=== PATIENT | female | born 1960 | race Caucasian/White ===

== ENCOUNTER 2020-09-24 07:29 | Outpatient (REF) | payer MEDICARE, MEDICAID, SELFPAY ==
--- NOTE | ~2020-09-24 | FL_ITS ---
EXAMINATION: XR GI SERIES CLINICAL INFORMATION: Dysphagia COMPARISON: None TECHNIQUE: Upper GI was performed using thin and thick barium and effervescent granules. FINDINGS: There are postoperative changes from gastric sleeve procedure. There is an esophageal hernia. There is significant gastroesophageal reflux. There is mucosal irregularity of the distal esophagus questionable for esophagitis. There is question of fold thickening or filling defect in the hernia. The stomach and duodenum are otherwise normal. FLUOROSCOPY TIME: 2.1 minutes DOSE AREA PRODUCT: 38 Vargas per centimeter squared. 42 saved fluoroscopic images. FL/FL upper GI series IMPRESSION: Postoperative change following gastric sleeve procedure. Fixed hiatal hernia and question of fold thickening or filling defect in the hernia. Significant gastroesophageal reflux and mucosal irregularity of the distal esophagus questionable for esophagitis. Endoscopic correlation recommended.
== END 2020-09-24 07:30 | disposition home or self-care (01) ==
LOC: HO.XRAY 07:29
PROVIDERS: PCP Internal Medicine Geriatric Medicine; Visit Provider Family Medicine
DX: R13.10 Dysphagia, unspecified (principal)
CPT/HCPCS: 74240

== ENCOUNTER 2020-09-26 16:45 | Emergency (ER) | payer MEDICARE, MEDICAID, SELFPAY ==
--- NOTE | ~2020-09-26 | CT_ITS ---
EXAMINATION: CT ABDOMEN AND PELVIS WITHOUT CONTRAST CLINICAL INFORMATION: Abdominal pain. History of gastric sleeve, small bowel obstruction. Hernia repair. COMPARISON: None TECHNIQUE: Multidetector volumetric imaging was performed from the superior aspect of the liver through the pubic symphysis. Sagittal and coronal reformatted images were obtained on the technologist's workstation. This CT examination was performed using dose optimization techniques as appropriate, variously including the following: *Automated exposure control *Adjustment of mA and/or kV according to patient size (this includes techniques or standardized protocols for targeted exams where dose is matched to indication/reason for exam; i.e. extremities or head) *Use of iterative reconstruction technique DLP: 1120 mGy-cm FINDINGS: LUNG BASES: The visualized lung bases are unremarkable. LIVER, GALLBLADDER, AND BILIARY TREE: The liver is normal in size, shape, and attenuation. No focal hepatic lesion or biliary ductal dilatation is present. The gallbladder is unremarkable with no evidence of radiopaque gallstones, gallbladder wall thickening, or obvious pericholecystic inflammatory changes. PANCREAS: Unremarkable. SPLEEN: Unremarkable. ADRENAL GLANDS: Unremarkable. KIDNEYS AND URETERS: There is a nonobstructive 2 mm stone in the upper pole of the right kidney. There is a 1 mm stone in mid mid pole the left kidney. There is no hydronephrosis. No ureteral calculus. 1.1 cm angiomyolipoma lower pole cortex of the right kidney. There is an exophytic cyst at the lower pole the right kidney measuring 3.3 cm. Density measurement -21 Hounsfield units. BLADDER: Unremarkable. GASTROINTESTINAL TRACT: There are numerous diverticula of the sigmoid colon. There are a few diverticula in the descending colon. There is subtle edema in the pericolonic fat around the sigmoid colon concerning for a mild diverticulitis. There is no perforation or abscess. There is no bowel obstruction. There is a moderate volume of stool in the colon. The appendix is nonvisualized . The small bowel loops are unremarkable. Status post gastric surgery. There is no hiatal hernia. ABDOMINAL WALL: Surgical clips at the anterior mid lower abdominal wall. No ventral wall hernia. Small right inguinal hernia. LYMPH NODES: Normal. VASCULAR: Unremarkable. PELVIC VISCERA: Uterus is anteverted. Small coarse calcification the left adnexa. No pelvic mass OSSEOUS STRUCTURES: Multilevel degenerative spondylosis spine. CT/CT abdomen pelvis wo con IMPRESSION: 1. Diverticulosis of sigmoid colon with subtle pericolonic edema suggestive of a mild diverticulitis. No perforation, abscess or obstruction. 2. Nonobstructive small stone right kidney. No hydronephrosis. 3. Status post gastric surgery.
[2020-09-26 16:53] VITALS: BP 126/77; PULSE 82; RESP 18; TEMP 37.3; O2SAT 96; BMI 38.5
--- NOTE | 2020-09-26 17:55 | ED_ITS ---
HPI - Abdominal Pain General Chief Complaint: Abdominal Pain Stated Complaint: ABD PAIN NAUSEA Time Seen by Provider: 09/26/20 17:41 Source: patient Mode of arrival: ambulatory Limitations: no limitations History of Present Illness HPI narrative: She comes emergency room complaining diffuse abdominal pain. Patient states the pain started couple of days ago. Patient has history of gastric sleeve procedure approximately 7 years ago and history of multiple hernia repair surgeries. Patient states approximately a month ago, she was told that she had blood in the stool, had a GI series done on 09/24/2020 which showed a fixed hiatal hernia and question of full thickening or filling defect in the hernia. Also significant gastroesophageal reflux and mucosal irregularity of the distal esophagus questionable for esophagitis. Patient states that she has been complaining of diarrhea for 2 and half months. Since patient got her 1st shot of COVID back in June 2020, patient started having diarrhea and it has not resolved. Patient states that yesterday the diarrhea got much worse, up to 7 times during the day and hourly at night. Patient tried taking [id number] remedies with no affect. Also, patient states that 3 weeks ago she went to [place], had 2 dental abscesses, she was started on clindamycin and Augmentin, finished a course of antibiotics, states that the antibiotics made the diarrhea worse. Patient complaining of nausea, no vomiting. MD elicited complaint: abdominal pain and other (Diarrhea) Related Data Previous Rx's Medication Instructions Recorded levofloxacin 500 mg PO DAILY #10 tab 09/26/20 metronidazole 500 mg PO BID #20 tab 09/26/20 tramadol 50 mg PO TID PRN #10 tab 09/26/20 Allergies Allergy/AdvReac Type Severity Reaction Status Date / Time pravastatin Allergy Unknown Verified 06/24/17 00:00 Sulfa (Sulfonamide Allergy Unknown Verified 06/24/17 00:00 Antibiotics) Review of Systems Review of Systems Constitutional : No Weight loss, No Fever, No Chills, No Night Sweats, No Fatigue, No Malaise ENT/Mouth : No Hearing loss, No Ear Pain, No Nasal Congestion, No Sinus Pain, No Hoarseness, No sore throat, No Rhinorrhea, No Swallowing Difficulty Eyes: No Eye Pain, No Swelling, No Redness, No Foreign Body, No Discharge, No Vision Changes Cardiovascular : No Chest Pain, No SOB, No Dyspnea on Exertion, No Orthopnea, No Edema, No Palpitations Respiratory : No Cough, No Sputum, No Wheezing, No Smoke Exposure, No Dyspnea Gastrointestinal : Complaining of Nausea, No Vomiting complaining of copious diarrhea for 2 and half months, No Constipation, complaining of diffuse abdominal pain, No Hematochezia, No Melena Genitourinary : no irregular bleeding, No Dysuria, No Urinary Frequency, No Hematuria, No Urinary Incontinence, No Urgency, No Flank Pain, No Urinary Flow Changes, No Hesitancy Musculoskeletal : No joint pain, No Myalgias, No Joint Swelling Skin : No Skin Lesions, No rash Neuro : No Weakness, No Numbness, No Paresthesias, No Loss of Consciousness, No Dizziness, No Headache Psych : No Anxiety/Panic, No Depression, No SI/HI/AH/VH, No Social Issues, Heme/Lymph: No Bruising, No Bleeding,No Lymphadenopathy Endocrine : No Polyuria, No Polydipsia, No Temperature Intolerance Physical Exam Vital Signs: Vital Signs: Last Vital Signs Temp 99.1 F 09/26/20 16:53 Pulse 82 09/26/20 16:53 Resp 18 09/26/20 16:53 BP 126/77 09/26/20 16:53 Pulse Ox 96 09/26/20 16:53 Body Mass Index 38.5 Appearance: Alert. Oriented X3. No acute distress. Well-appearing Eyes: Pupils equal, round and reactive to light. ENT: Pharynx normal. Neck: Normal inspection. Neck supple. No lymph nodes noted. No crepitus CVS: Normal heart rate and rhythm. Pulses normal. Normal S1 and S2 Respiratory: No respiratory distress. Breath sounds normal. No Wheezing. No rales Abdomen: Soft , mild diffuse tenderness, No rigidity. No distention. Skin: Skin warm and dry. Normal skin color. Normal skin turgor. Extremities: No lower extremity edema. No lower extremity edema. No Lacerations. No Rash Neuro: Oriented X 3. No motor deficit. No sensory deficit. Moving all extermities. No slurred speech. Course Course Course Narrative: I discussed the labs and imaging with the patient, patient likely has diverticulitis. Patient states that the abdominal pain is well controlled now. I discussed with the patient that she could either be admitted for pain control and antibiotics versus going home, depending how she feels. Patient did not provide a urine sample. Patient states that she feels well enough to go home. Patient received a 1st dose of levofloxacin and metronidazole in the emergency room. Patient was instructed to call her edi coordinator, and discussed with him that she was here in the emergency room and is now taking antibiotics for diverticulitis. At this time, patient has not had any bowel movements in the ED, no abdominal pain, unlikely that patient has C diff. MDM - Abdominal Pain Lab Data Result diagrams: 09/26/20 18:43 09/26/20 18:43 Labs: Lab Results 09/26/20 09/26/20 09/26/20 Range/Units 18:43 18:43 18:47 WBC 14.9 H (4.8-10.8) X10*3/uL RBC 4.07 L (4.20-5.50) X10*6/uL Hgb 11.9 L (12.0-16.0) g/dl Hct 35.7 L (37-47) % MCV 87.7 (80-98) fL MCH 29.2 (27.0-33.0) pg MCHC 33.3 (31.0-35.0) g/dl RDW 13.3 (11.0-16.0) % Plt Count 247 (160-400) X10*3/uL MPV 12.1 (9.4-12.3) fL Immature Gran % (Auto) 0.8 H (0.0-0.4) % Neut % (Auto) 73.5 H (45-73) % Lymph % (Auto) 18.0 L (20-40) % [place] % (Auto) 7.4 (2-11) % Eos % (Auto) 0.1 (0-4) % Baso % (Auto) 0.2 (0-2) % Lymph # (Auto) 2.7 (1.2-4.9) X10*3/uL [place] # (Auto) 1.1 (0.1-1.2) X10*3/uL Eos # (Auto) 0.0 (0.0-0.4) X10*3/uL Baso # (Auto) 0.0 (0.0-0.2) X10*3/uL Abs Immat Gran (auto) 0.12 H (0.00-0.03) X10*3/uL Absolute Neuts (auto) 11.0 H (2.0-8.3) X10*3/uL Absolute Nucleated RBC 0.000 (0.0-0.012) X10*3/uL Nucleated RBC % (auto) 0.0 (0.0-0.2) /100WBC Sodium 137 (135-145) mmol/L Potassium 3.8 (3.3-5.1) mmol/L Chloride 107 (96-108) mmol/L Carbon Dioxide 22 (22-29) mmol/L Anion Gap 12 (12-20) BUN 7 L (9-16) mg/dL Creatinine 0.67 (0.5-1.4) mg/dL Estim Creat Clear Calc 116.5 Estimated GFR > 60 Random Glucose 97 (60-115) mg/dL Calcium 8.1 L (8.4-10.2) mg/dL Total Bilirubin 0.6 (0.0-1.0) mg/dL Direct Bilirubin 0.2 (0.0-0.5) mg/dL AST 14 (5-31) U/L ALT 16 (0-31) U/L Alkaline Phosphatase 56 (39-117) U/L Total Protein 6.0 L (6.5-8.0) g/dL Albumin 3.7 (3.5-5.0) g/dL Lipase 5 L (8-78) U/L Stool Occult Blood NEGATIVE (NEGATIVE) Imaging Data CT scan - abdomen: Radiologist's impression: FINDINGS: LUNG BASES: The visualized lung bases are unremarkable. LIVER, GALLBLADDER, AND BILIARY TREE: The liver is normal in size, shape, and attenuation. No focal hepatic lesion or biliary ductal dilatation is present. The gallbladder is unremarkable with no evidence of radiopaque gallstones, gallbladder wall thickening, or obvious pericholecystic inflammatory changes. PANCREAS: Unremarkable. SPLEEN: Unremarkable. ADRENAL GLANDS: Unremarkable. KIDNEYS AND URETERS: There is a nonobstructive 2 mm stone in the upper pole of the right kidney. There is a 1 mm stone in mid mid pole the left kidney. There is no hydronephrosis. No ureteral calculus. 1.1 cm angiomyolipoma lower pole cortex of the right kidney. There is an exophytic cyst at the lower pole the right kidney measuring 3.3 cm. Density measurement -21 Hounsfield units. BLADDER: Unremarkable. GASTROINTESTINAL TRACT: There are numerous diverticula of the sigmoid colon. There are a few diverticula in the descending colon. There is subtle edema in the pericolonic fat around the sigmoid colon concerning for a mild diverticulitis. There is no perforation or abscess. There is no bowel obstruction. There is a moderate volume of stool in the colon. The appendix is nonvisualized . The small bowel loops are unremarkable. Status post gastric surgery. There is no hiatal hernia. ABDOMINAL WALL: Surgical clips at the anterior mid lower abdominal wall. No ventral wall hernia. Small right inguinal hernia. LYMPH NODES: Normal. VASCULAR: Unremarkable. PELVIC VISCERA: Uterus is anteverted. Small coarse calcification the left adnexa. No pelvic mass OSSEOUS STRUCTURES: Multilevel degenerative spondylosis spine. CT/CT abdomen pelvis wo con IMPRESSION: 1. Diverticulosis of sigmoid colon with subtle pericolonic edema suggestive of a mild diverticulitis. No perforation, abscess or obstruction. 2. Nonobstructive small stone right kidney. No hydronephrosis. 3. Status post gastric surgery. Discharge Plan Discharge Clinical Impression: Diverticulitis Patient Disposition: Home, Self-Care Instructions: Diverticulitis (ED), Diverticulitis Diet (ED) Additional Instructions: Please follow-up with your primary care physician tomorrow. If you have any worsening or new symptoms, please return to the emergency room or call 911 Prescriptions: New levofloxacin 500 mg tablet 500 mg PO DAILY Qty: 10 RF: 0 metronidazole 500 mg tablet 500 mg PO BID Qty: 20 RF: 0 tramadol 50 mg tablet 50 mg PO TID PRN (Reason: pain) Qty: 10 RF: 0 PMFSH Past Medical History Medical History Asthma Hernia Surgical History Gastric bypass status for obesity H/O thyroidectomy History of appendectomy Social History Social History Advance Directives: No Advance Directives Information Provided: No
[2020-09-26] MEDS: Morphine Sulfate 4 MG/ML CARTRIDGE IVPUSH (18:14)
[2020-09-26] MEDS: 0.9 % Sodium Chloride 1,000 ML 999 ML IVCONT (18:14)
[2020-09-26] MEDS: ondansetron HCL 4 MG/2 ML VIAL IVPUSH (18:15)
[2020-09-26] MEDS: Loperamide HCl 2 MG CAPSULE 4 MG PO (18:15)
[2020-09-26 18:50] LABS: MANUAL DIFF FLAG NO
[2020-09-26 18:54] LABS: OBS Int Ctl Valid YES; OBS1 NEGATIVE (NEGATIVE)
[2020-09-26 19:15] LABS: Alanine Aminotransferase 16 U/L (0-31); Albumin Level 3.7 g/dL (3.5-5.0); Alkaline Phosphatase 56 U/L (39-117); Anion Gap 12 (12-20); Aspartate Amino Transferase 14 U/L (5-31); Basophils Percent Auto 0.2 % (0-2); Bilirubin Direct 0.2 mg/dL (0.0-0.5); Bilirubin Total 0.6 mg/dL (0.0-1.0); Blood Urea Nitrogen 7 mg/dL (9-16); Calcium 8.1 mg/dL (8.4-10.2); Carbon Dioxide 22 mmol/L (22-29); Chloride 107 mmol/L (96-108); Creatinine Clr Calc Pharmacy 116.5; Eosinophils Percent Auto 0.1 % (0-4); Estimated Glomerular Filt Rate > 60; Glucose Random 97 mg/dL (60-115); Hematocrit 35.7 % (37-47); Hemoglobin 11.9 g/dl (12.0-16.0); Imm Gran Abs Auto 0.12 X10*3/uL (0.00-0.03); Imm Gran Pct Auto 0.8 % (0.0-0.4); Lipase 5 U/L (8-78); Lymphocytes Absolute Auto 2.7 X10*3/uL (1.2-4.9); Mean Corpuscular HGB Conc 33.3 g/dl (31.0-35.0); Mean Corpuscular Hemoglobin 29.2 pg (27.0-33.0); Mean Corpuscular Volume 87.7 fL (80-98); Mean Platelet Volume 12.1 fL (9.4-12.3); Monocytes Absolute Auto 1.1 X10*3/uL (0.1-1.2); Monocytes Percent Auto 7.4 % (2-11); Neutrophils Percent Auto 73.5 % (45-73); Platelet Count 247 X10*3/uL (160-400); Potassium 3.8 mmol/L (3.3-5.1); Red Blood Count 4.07 X10*6/uL (4.20-5.50); Red Cell Distribution Width 13.3 % (11.0-16.0); Sodium 137 mmol/L (135-145); White Blood Count 14.9 X10*3/uL (4.8-10.8)
[2020-09-26 19:55] VITALS: BP 126/68; PULSE 75; RESP 18
[2020-09-26 19:55] LABS: Glucose Urine UA NEG (NEG); Leukocyte Esterase Urine NEG (NEG); Nitrite Urine NEG (NEG); Urine Blood NEG (NEG); Urine Ketones 5 MG/DL (NEG); Urine Protein NEG (NEG-TRACE)
[2020-09-26 19:56] LABS: Appearance Urine CLEAR; Color Urine YELLOW
[2020-09-26] MEDS: levoFLOXacin 500 MG TABLET PO (19:59)
[2020-09-26] MEDS: metroNIDAZOLE 500 MG TABLET PO (19:59)
== END 2020-09-26 20:15 | disposition home or self-care (01) ==
PROVIDERS: Emergency Provider Emergency Medicine; PCP Internal Medicine Geriatric Medicine
DX: K57.32 Diverticulitis of large intestine without perforation or abscess without bleeding (principal); N20.0 Calculus of kidney; Z98.84 Bariatric surgery status; J45.909 Unspecified asthma, uncomplicated
CPT/HCPCS: 36415; 74176; 80048; 80076; 81003; 82272; 83690; 85025; 96361; 96374; 96375; 99283; 99284; J2270; J2405

== ENCOUNTER 2020-10-11 17:21 | Inpatient (IN) | payer MEDICARE, MEDICAID, SELFPAY ==
--- NOTE | ~2020-10-11 | CT_ITS ---
EXAMINATION: CT ABDOMEN AND PELVIS WITH CONTRAST CLINICAL INFORMATION: Abdominal pain COMPARISON: CT abdomen pelvis 09/26/2020 TECHNIQUE: Multidetector volumetric images were obtained from the superior aspect of the liver through the pubic symphysis following administration 85 mL of Omnipaque 350 intravenous contrast. Sagittal and coronal reformatted images were obtained on the technologist's workstation. Oral contrast: No This CT examination was performed using dose optimization techniques as appropriate, variously including the following: *Automated exposure control *Adjustment of mA and/or kV according to patient size (this includes techniques or standardized protocols for targeted exams where dose is matched to indication/reason for exam; i.e. extremities or head) *Use of iterative reconstruction technique DLP: 1131 mGy-cm FINDINGS: LUNG BASES: The visualized lung bases are unremarkable. LIVER, GALLBLADDER, AND BILIARY TREE: The liver is normal in size, shape, and attenuation. No focal hepatic lesion or biliary ductal dilatation is present. The gallbladder is unremarkable with no evidence of radiopaque gallstones, gallbladder wall thickening, or obvious pericholecystic inflammatory changes. PANCREAS: Unremarkable. SPLEEN: Unremarkable. ADRENAL GLANDS: Unremarkable. KIDNEYS AND URETERS: The left kidney appears normal. On the right, there is a nonobstructing right upper pole calculus measuring 3 mm in size along with a lower pole exophytic 3.5 cm cortical cyst and a 1 cm lower pole benign angiomyolipoma, all unchanged. BLADDER: Unremarkable. GASTROINTESTINAL TRACT: A hiatal hernia is present and unchanged. There has been prior gastric surgery. Colonic diverticula are present but there is no definite convincing evidence of acute diverticulitis. There is some minimal streaky changes adjacent to the colon and at the descending colon sigmoid junction which were present previously The small and large bowel are otherwise unremarkable. The appendix is not seen but there is no evidence of appendicitis. ABDOMINAL WALL: There has been repair of a periumbilical/ventral hernia. There is a small right indirect inguinal hernia present containing only fat. LYMPH NODES: No retroperitoneal lymphadenopathy. VASCULAR: Mild calcific changes present in the infrarenal aorta and iliofemoral vessels without stenosis or aneurysm. PELVIC VISCERA: An anteverted uterus is again seen as is a 2 cm simple left ovarian cyst. OSSEOUS STRUCTURES: Degenerative changes most marked at L4-L5 S1. CT/CT abdomen pelvis w con IMPRESSION: 1. An etiology for the patient's abdominal pain has not been found. 2. No significant interval change when compared to the prior study. 3. Incidental findings include prior gastric surgery, hiatal hernia, nonobstructing right renal calculus, benign right renal angiomyolipoma, colonic diverticulosis without diverticulitis, hernia repair, small right inguinal hernia containing only fat, unchanged left ovarian cyst and degenerative changes in the spine
[2020-10-11 17:58] VITALS: BP 148/95; PULSE 74; RESP 18; TEMP 36.9; O2SAT 100; BMI 37.3
[2020-10-11 20:11] VITALS: BP 146/77; PULSE 68; RESP 16; TEMP 37.2; O2SAT 98
[2020-10-11 20:18] LABS: MANUAL DIFF FLAG NO
--- NOTE | 2020-10-11 20:18 | PC.NURSE ---
Pt found laying in bed with daughter at bedside. Pt CAOx4, reports a history of diverticulitis and a sleeve gastrectomy. Pt also states they are considering Crohns disease but no official diagnosis has been made. Pt reports constant lower abdominal pain x 2 days with diarrhea and poor PO intake. LBM this afternoon, denies obvious blood in stool. Pt also reporting pain/burning with urination, states she is unable to provide urine sample at this time. Pt provided with a urine cup. IV established, labs obtained. VSS, lights dim for comfort. Awaiting primary MD larson. Lights dim for comfort, call de guzman within reach, continue to monitor.
[2020-10-11 20:19] LABS: Basophils Absolute Auto 0.1 X10*3/uL (0.0-0.2); Basophils Percent Auto 0.3 % (0-2); Eosinophils Absolute Auto 0.1 X10*3/uL (0.0-0.4); Eosinophils Percent Auto 0.3 % (0-4); Hematocrit 39.7 % (37-47); Hemoglobin 13.6 g/dl (12.0-16.0); Imm Gran Abs Auto 0.09 X10*3/uL (0.00-0.03); Imm Gran Pct Auto 0.5 % (0.0-0.4); Lymphocytes Absolute Auto 3.3 X10*3/uL (1.2-4.9); Lymphocytes Percent Auto 18.2 % (20-40); Mean Corpuscular HGB Conc 34.3 g/dl (31.0-35.0); Mean Corpuscular Hemoglobin 29.6 pg (27.0-33.0); Mean Corpuscular Volume 86.3 fL (80-98); Mean Platelet Volume 12.2 fL (9.4-12.3); Monocytes Absolute Auto 1.3 X10*3/uL (0.1-1.2); Monocytes Percent Auto 7.2 % (2-11); Neutrophils Absolute Auto 13.5 X10*3/uL (2.0-8.3); Neutrophils Percent Auto 73.5 % (45-73); Platelet Count 266 X10*3/uL (160-400); Red Cell Distribution Width 13.4 % (11.0-16.0); White Blood Count 18.3 X10*3/uL (4.8-10.8)
[2020-10-11 20:59] LABS: Alanine Aminotransferase 15 U/L (0-31); Albumin Level 4.1 g/dL (3.5-5.0); Alkaline Phosphatase 64 U/L (39-117); Anion Gap 18 (12-20); Aspartate Amino Transferase 15 U/L (5-31); Bilirubin Total 0.7 mg/dL (0.0-1.0); Blood Urea Nitrogen 7 mg/dL (9-16); Calcium 9.1 mg/dL (8.4-10.2); Carbon Dioxide 20 mmol/L (22-29); Chloride 105 mmol/L (96-108); Estimated Glomerular Filt Rate > 60; Glucose Random 108 mg/dL (60-115); Lipase 8 U/L (8-78); Potassium 3.6 mmol/L (3.3-5.1); Sodium 139 mmol/L (135-145); Total Protein 6.8 g/dL (6.5-8.0)
--- NOTE | 2020-10-11 21:11 | ED.ABDPAIN ---
HPI - Abdominal Pain General Chief Complaint: Abdominal Pain Stated Complaint: abd pain since july Time Seen by Provider: 10/11/20 21:11 Source: patient Mode of arrival: ambulatory History of Present Illness HPI narrative: 60-year-old female with past medical history of diverticulitis treated 09/26 and completed entire course but has remained with diarrhea that patient states over the past 2 days has increase in frequency to 8-10 times/today she tried Imodium once this morning and this is been associated with nausea, vomiting but denies any fever, chills, urinary pain/burning/frequency. Related Data Home Medications Medication Instructions Recorded Confirmed buspirone 30 mg PO BID 10/11/20 10/11/20 carisoprodol 350 mg PO QID 10/11/20 10/11/20 ezetimibe 10 mg PO DAILY 10/11/20 10/11/20 levothyroxine 125 mcg PO DAILY 10/11/20 10/11/20 omeprazole 40 cap PO BID 10/11/20 10/11/20 venlafaxine 75 mg PO BEDTIME 10/11/20 10/11/20 venlafaxine 150 mg PO BEDTIME 10/11/20 10/11/20 zolpidem 10 mg PO BEDTIME PRN 10/11/20 10/11/20 Previous Rx's Medication Instructions Recorded tramadol 50 mg PO TID PRN #10 tab 09/26/20 Allergies Allergy/AdvReac Type Severity Reaction Status Date / Time pravastatin Allergy Unknown Verified 06/24/17 00:00 Sulfa (Sulfonamide Allergy Unknown Verified 06/24/17 00:00 Antibiotics) Review of Systems Review of Systems Pertinent positives and negatives as stated in HPI 10 point review of systems otherwise negative. Physical Exam Vital Signs: Vital Signs: Last Vital Signs Temp 98.9 F 10/11/20 20:11 Pulse 66 10/11/20 21:41 Resp 16 10/11/20 21:41 BP 114/75 10/11/20 21:41 Pulse Ox 98 10/11/20 20:11 Body Mass Index 37.3 VITAL SIGNS: Reviewed. GENERAL: Well developed, well nourished, in no acute distress. HEAD: Normocephalic/atraumatic EYES: PERRLA, EOMI OROPHARYNX: no oral lesions noted, posterior pharynx clear NECK: Supple, no adenopathy LUNGS: Normal breath sounds. No adventitious sounds or accessory muscle use. SpO2<98> CARDIOVASCULAR: Regular rate and rhythm without noted murmurs ABDOMEN: Soft, mild tenderness no rebound, non-distended with bowel sounds. Course Course Course Narrative: 2132: This is a 60-year-old female with history and clinical presentation consistent with colitis, will rule out C diff and probably a component of dehydration. No evidence to suggest SBO. On review of all investigations patient is suspected to have C diff colitis and will be provided with initial antibiotics here in the ER and then admitted to the hospitalist team for further management. MDM - Abdominal Pain Lab Data Result diagrams: 10/11/20 20:05 10/11/20 20:05 Labs: Lab Results 10/11/20 10/11/20 10/11/20 Range/Units 20:05 20:05 22:06 WBC 18.3 H (4.8-10.8) X10*3/uL RBC 4.60 (4.20-5.50) X10*6/uL Hgb 13.6 (12.0-16.0) g/dl Hct 39.7 (37-47) % MCV 86.3 (80-98) fL MCH 29.6 (27.0-33.0) pg MCHC 34.3 (31.0-35.0) g/dl RDW 13.4 (11.0-16.0) % Plt Count 266 (160-400) X10*3/uL MPV 12.2 (9.4-12.3) fL Immature Gran % (Auto) 0.5 H (0.0-0.4) % Neut % (Auto) 73.5 H (45-73) % Lymph % (Auto) 18.2 L (20-40) % [place] % (Auto) 7.2 (2-11) % Eos % (Auto) 0.3 (0-4) % Baso % (Auto) 0.3 (0-2) % Lymph # (Auto) 3.3 (1.2-4.9) X10*3/uL [place] # (Auto) 1.3 H (0.1-1.2) X10*3/uL Eos # (Auto) 0.1 (0.0-0.4) X10*3/uL Baso # (Auto) 0.1 (0.0-0.2) X10*3/uL Abs Immat Gran (auto) 0.09 H (0.00-0.03) X10*3/uL Absolute Neuts (auto) 13.5 H (2.0-8.3) X10*3/uL Absolute Nucleated RBC 0.000 (0.0-0.012) X10*3/uL Nucleated RBC % (auto) 0.0 (0.0-0.2) /100WBC Sodium 139 (135-145) mmol/L Potassium 3.6 (3.3-5.1) mmol/L Chloride 105 (96-108) mmol/L Carbon Dioxide 20 L (22-29) mmol/L Anion Gap 18 (12-20) BUN 7 L (9-16) mg/dL Creatinine 0.73 (0.5-1.4) mg/dL Estim Creat Clear Calc 105.0 Estimated GFR > 60 Random Glucose 108 (60-115) mg/dL Lactic Acid (0.5-2.0) mmol/L Calcium 9.1 D (8.4-10.2) mg/dL Total Bilirubin 0.7 (0.0-1.0) mg/dL AST 15 (5-31) U/L ALT 15 (0-31) U/L Alkaline Phosphatase 64 (39-117) U/L Total Protein 6.8 (6.5-8.0) g/dL Albumin 4.1 (3.5-5.0) g/dL Lipase 8 (8-78) U/L Stool Occult Blood (NEGATIVE) C. difficile Toxin A&B Positive A (Negative) C. difficile Antigen Positive A (Negative) C. difficile Interpret SEE NOTE COVID-19 (SUNDAR) (Negative) COVID-19 Clin Com 10/11/20 10/11/20 10/11/20 Range/Units 23:42 23:42 23:42 WBC (4.8-10.8) X10*3/uL RBC (4.20-5.50) X10*6/uL Hgb (12.0-16.0) g/dl Hct (37-47) % MCV (80-98) fL MCH (27.0-33.0) pg MCHC (31.0-35.0) g/dl RDW (11.0-16.0) % Plt Count (160-400) X10*3/uL MPV (9.4-12.3) fL Immature Gran % (Auto) (0.0-0.4) % Neut % (Auto) (45-73) % Lymph % (Auto) (20-40) % [place] % (Auto) (2-11) % Eos % (Auto) (0-4) % Baso % (Auto) (0-2) % Lymph # (Auto) (1.2-4.9) X10*3/uL [place] # (Auto) (0.1-1.2) X10*3/uL Eos # (Auto) (0.0-0.4) X10*3/uL Baso # (Auto) (0.0-0.2) X10*3/uL Abs Immat Gran (auto) (0.00-0.03) X10*3/uL Absolute Neuts (auto) (2.0-8.3) X10*3/uL Absolute Nucleated RBC (0.0-0.012) X10*3/uL Nucleated RBC % (auto) (0.0-0.2) /100WBC Sodium (135-145) mmol/L Potassium (3.3-5.1) mmol/L Chloride (96-108) mmol/L Carbon Dioxide (22-29) mmol/L Anion Gap (12-20) BUN (9-16) mg/dL Creatinine (0.5-1.4) mg/dL Estim Creat Clear Calc Estimated GFR Random Glucose (60-115) mg/dL Lactic Acid 0.9 (0.5-2.0) mmol/L Calcium (8.4-10.2) mg/dL Total Bilirubin (0.0-1.0) mg/dL AST (5-31) U/L ALT (0-31) U/L Alkaline Phosphatase (39-117) U/L Total Protein (6.5-8.0) g/dL Albumin (3.5-5.0) g/dL Lipase (8-78) U/L Stool Occult Blood NEGATIVE (NEGATIVE) C. difficile Toxin A&B (Negative) C. difficile Antigen (Negative) C. difficile Interpret COVID-19 (SUNDAR) Negative (Negative) COVID-19 Clin Com See Note Discharge Plan Discharge Clinical Impression: C. difficile colitis Patient Disposition: Admitted As Inpatient [facility] Past Medical History Source: nursing notes reviewed Medical History Asthma Hernia Surgical History Gastric bypass status for obesity H/O thyroidectomy History of appendectomy Social History Social History Advance Directives: No Advance Directives Information Provided: No Patient : No
--- NOTE | 2020-10-11 21:26 | PC.NURSE ---
at bedside for primary eval.
[2020-10-11] MEDS: 0.9 % Sodium Chloride 2,000 ML 999 ML IV (21:38)
[2020-10-11] MEDS: ondansetron HCL 4 MG/2 ML VIAL IVPUSH (21:38)
--- NOTE | 2020-10-11 21:39 | PC.NURSE ---
Medicated per MAR. VSS. Pt aware of plan for UA, OBS and stool sample. Pt provided with specimen cups. Continue to monitor.
[2020-10-11 21:41] VITALS: BP 114/75; PULSE 66; RESP 16
--- NOTE | 2020-10-11 22:21 | PC.NURSE ---
Stool sample obtained and sent. Pt remains unable to provide UA. IVF infusing per MAR.
--- NOTE | 2020-10-11 23:02 | PC.NURSE ---
Off to CT on hospital bed.
[2020-10-11] MEDS: iohexoL 350 MG/ML 100 ML INFUS..BTL 85 ML IV (23:16)
[2020-10-11 23:20] LABS: CDIFF Ag Positive (Negative); CDiff Toxin Positive (Negative)
[2020-10-11 23:23] LABS: CDIFF Internal ctrl Dots and bkg OK (V)
--- NOTE | 2020-10-11 23:46 | PC.NURSE ---
BCXx2, lactic, Covid swab obtained and sent. Lab to add on OBS to stool sample. Med Rec completed at bedside with pt.
[2020-10-11 23:51] LABS: OBS Int Ctl Valid YES; OBS1 NEGATIVE (NEGATIVE)
[2020-10-11] MEDS: vancomycin HCL 125 MG CAPSULE 500 MG PO (23:51)
[2020-10-12] VITALS (7 sets, daily range): BP systolic 95–139; BP diastolic 50–87; PULSE 60–68; RESP 16–20; TEMP 35.9–36.6; O2SAT 94–99
[2020-10-12 00:04] LABS: COVID-19 Test Negative (Negative)
[2020-10-12 00:25] LABS: Lactic Acid 0.9 mmol/L (0.5-2.0)
--- NOTE | 2020-10-12 00:34 | PC.NURSE ---
Hospitalist at bedside.
[2020-10-12 01:44] LABS: Glucose Urine UA NEG (NEG); Leukocyte Esterase Urine NEG (NEG); Nitrite Urine NEG (NEG); Specific Gravity - Urine <= 1.005 (1.005-1.025); Urine Blood NEG (NEG); Urine Ketones 15 MG/DL (NEG); Urine Protein NEG (NEG-TRACE)
[2020-10-12 01:49] LABS: Appearance Urine CLEAR; Color Urine YELLOW
[2020-10-12] MEDS: Venlafaxine HCl ER 150 MG CAP.ER.24H PO ×2 (01:56→21:13)
[2020-10-12] MEDS: Acetaminophen 325 MG TABLET 650 MG PO (01:56)
[2020-10-12] MEDS: Venlafaxine HCl ER 75 MG CAP.ER.24H PO ×2 (01:56→21:13)
[2020-10-12] MEDS: Zolpidem Tartrate 5 MG TABLET PO (01:56)
[2020-10-12] MEDS: Lactated Ringers 1,000 ML 100 ML IVCONT ×3 (01:56→16:36)
[2020-10-12] MEDS: Enoxaparin Sodium 40 MG/0.4 ML SYRINGE SUBCUT (01:57)
--- NOTE | 2020-10-12 02:00 | PC.NURSE ---
Pt medicated per MAR. Awaiting room assignment. Continue to monitor.
--- NOTE | 2020-10-12 05:25 | PM.IMHP ---
History of Present Illness Date of Service: 10/12/20 Chief Complaint: diarrhea This is a 60-year-old female with past medical history of gastric bypass, asthma, thyroid cancer status post thyroidectomy, hypothyroidism, who presents to the hospital with complaints of over 10 episodes of diarrhea for the past 2 days. Patient reports that she started having diarrhea since that she started taking pre on probiotic back in July. Patient reports that she then went to [facility] the in August and had tooth abscess for which she was prescribed antibiotics including clindamycin then she developed abdominal pain about 2 weeks ago, came to the ED here and was diagnosed with diverticulitis and was prescribed Flagyl and levofloxacin with no resolution of her diarrhea. About 1 day ago her diarrhea increase in number where she is now having more than 10 episodes of watery diarrhea associated with abdominal cramping in the lower abdomen. She reports nausea, some chills with no fever, no bloody diarrhea, denies any chest pain, no shortness of breath, no headache or change in vision, no lower extremity edema. On arrival to the ED patient hemodynamically stable with no significant abnormal vitals Labs are significant for WBC count of 18.3, BUN of 7, creatinine of 0.73, labs otherwise unremarkable. C diff showed positive toxin as well as antigen. Abdominal CT shows an etiology for the patient abdominal pain has not been found. No significant interval change when compared to prior study, incidental findings including prior gastric surgery, hiatal hernia, nonobstructing right renal calculus. No evidence of diverticulitis. Past medical history per patient and confirmed with her Review of Systems Review of Systems: Yes all other systems are reviewed and are negative [facility] Medical History (Updated 10/12/20 @ 05:33 by Joy Miller MD) Anxiety and depression Asthma Chronic back pain Hernia Hypothyroidism Insomnia Osteoarthritis Surgical History Gastric bypass status for obesity H/O thyroidectomy History of appendectomy Social History Advance Directives: No Advance Directives Information Provided: No Patient : No Meds Allergies Allergy/AdvReac Type Severity Reaction Status Date / Time pravastatin Allergy Unknown Verified 06/24/17 00:00 Sulfa (Sulfonamide Allergy Unknown Verified 06/24/17 00:00 Antibiotics) Active Medications: Current Medications Generic Name Dose Route Start Last Admin Trade Name Freq PRN Reason Stop Dose Admin Acetaminophen 650 mg 10/12/20 01:28 10/12/20 01:56 Acetaminophen 325 Mg Tablet PO 650 mg Q6H PRN Administration Pain, Mild (Pain Scale 1-3) Buspirone HCl 30 mg 10/12/20 09:00 Buspirone Hcl 10 Mg Tablet PO BID [facility] Carisoprodol 350 mg 10/12/20 09:00 Carisoprodol 350 Mg Tablet PO QID [facility] Ezetimibe 10 mg 10/12/20 09:00 Ezetimibe 10 Mg Tablet PO DAILY [facility] Enoxaparin Sodium 40 mg 10/12/20 02:00 10/12/20 01:57 Enoxaparin Sodium 40 Mg/0.4 Ml Syringe SUBCUT 40 mg Q24H KERWIN Administration Lactated Ringer's 1,000 mls @ 100 mls/hr 10/12/20 01:28 10/12/20 01:56 Lr IVCONT 100 mls/hr .Q10H KERWIN Administration Levothyroxine Sodium 125 mcg 10/12/20 06:30 Levothyroxine Sodium 125 Mcg Tablet PO DAILY@0630 [facility] Omeprazole 1,600 mg 10/12/20 06:30 Omeprazole 40 Mg Capsule.Dr PO BID@0630,1630 [facility] Ondansetron HCl 4 mg 10/12/20 01:28 Ondansetron Hcl 4 Mg/2 Ml Vial IVPUSH Q8H PRN Nausea and Vomiting Sodium Chloride 3 ml 10/12/20 08:00 0.9 % Sodium Chloride Flush 3 M[facility] HCl 50 mg 10/12/20 01:28 Tramadol Hcl 50 Mg Tablet PO TID PRN pain Vancomycin HCl 250 mg 10/12/20 01:28 10/12/20 01:45 Vancomycin Hcl 125 Mg Capsule PO Not Given Q6H [facility] Venlafaxine HCl 75 mg 10/12/20 01:28 10/12/20 01:56 Venlafaxine Hcl Er 75 Mg Cap.Er.24h PO 75 mg BEDTIME KERWIN Administration Venlafaxine HCl 150 mg 10/12/20 01:28 10/12/20 01:56 Venlafaxine Hcl Er 150 Mg Cap.Er.24h PO 150 mg BEDTIME KERWIN Administration Zolpidem Tartrate 5 mg 10/12/20 01:28 10/12/20 01:56 Zolpidem Tartrate 5 Mg Tablet PO 5 mg BEDTIME PRN Administration insomnia Home Medications Medication Instructions Recorded Confirmed Last Taken Type buspirone 30 mg PO BID 10/11/20 10/11/20 10/10/20 21:00 History carisoprodol 350 mg PO QID 10/11/20 10/11/20 10/10/20 21:00 History ezetimibe 10 mg PO DAILY 10/11/20 10/11/20 10/10/20 21:00 History levothyroxine 125 mcg PO DAILY 10/11/20 10/11/20 10/11/20 08:00 History omeprazole 40 cap PO BID 10/11/20 10/11/20 10/10/20 21:00 History venlafaxine 75 mg PO BEDTIME 10/11/20 10/11/20 10/10/20 21:00 History venlafaxine 150 mg PO BEDTIME 10/11/20 10/11/20 10/10/20 21:00 History zolpidem 10 mg PO BEDTIME PRN 10/11/20 10/11/20 10/10/20 21:00 History Physical Exam Vital Signs and Narrative: Vital Signs: Last Vital Signs Temp 98.9 F 10/11/20 20:11 Pulse 62 10/12/20 01:15 Resp 16 10/12/20 01:15 BP 124/67 10/12/20 01:15 Pulse Ox 98 10/11/20 20:11 Body Mass Index 37.3 Const: General: cooperative and no acute distress Orientation/consciousness: patient oriented x3 Eyes: General: appearance normal, both eyes and all related structures Resp: Effort & Inspection: normal respiratory effort and able to speak in complete sentences Auscultation: clear to auscultation bilaterally Cardio: Rate: regular rate Rhythm: regular rhythm GI: Other: Abdomen tender on palpation, no rebound or guarding Palpation (GI): Soft to palpation and Tenderness to palpation present (GI) Skin: General skin exam: no rashes or lesions noted Neuro: General: patient oriented x3 Cognition (Neuro): normal cognition Extrem: General: Yes normal to inspection and Yes no pedal edema Results Labs CBC and Chem 7: 10/11/20 20:05 10/11/20 20:05 Labs: Laboratory Results - last 24 hr 10/11/20 10/11/20 10/11/20 20:05 20:05 22:06 MCV 86.3 MCH 29.6 MCHC 34.3 RDW 13.4 Plt Count 266 MPV 12.2 Immature Gran % (Auto) 0.5 H Neut % (Auto) 73.5 H Lymph % (Auto) 18.2 L [place] % (Auto) 7.2 Eos % (Auto) 0.3 Baso % (Auto) 0.3 Lymph # (Auto) 3.3 [place] # (Auto) 1.3 H Eos # (Auto) 0.1 Baso # (Auto) 0.1 Abs Immat Gran (auto) 0.09 H Absolute Neuts (auto) 13.5 H Absolute Nucleated RBC 0.000 Nucleated RBC % (auto) 0.0 Anion Gap 18 Estim Creat Clear Calc 105.0 Estimated GFR > 60 Random Glucose 108 Lactic Acid Calcium 9.1 D Total Bilirubin 0.7 AST 15 ALT 15 Alkaline Phosphatase 64 Total Protein 6.8 Albumin 4.1 Lipase 8 Urine Color Urine Appearance Urine pH Ur Specific [place] Urine Protein Urine Glucose (UA) Urine Ketones Urine Blood Urine Nitrite Ur Leukocyte Esterase Stool Occult Blood C. difficile Toxin A&B Positive A C. difficile Antigen Positive A C. difficile Interpret SEE NOTE COVID-19 (SUNDAR) COVID-L'Idealist 10/11/20 10/11/20 10/11/20 23:42 23:42 23:42 MCV MCH MCHC RDW Plt Count MPV Immature Gran % (Auto) Neut % (Auto) Lymph % (Auto) [place] % (Auto) Eos % (Auto) Baso % (Auto) Lymph # (Auto) [place] # (Auto) Eos # (Auto) Baso # (Auto) Abs Immat Gran (auto) Absolute Neuts (auto) Absolute Nucleated RBC Nucleated RBC % (auto) Anion Gap Estim Creat Clear Calc Estimated GFR Random Glucose Lactic Acid 0.9 Calcium Total Bilirubin AST ALT Alkaline Phosphatase Total Protein Albumin Lipase Urine Color Urine Appearance Urine pH Ur Specific [place] Urine Protein Urine Glucose (UA) Urine Ketones Urine Blood Urine Nitrite Ur Leukocyte Esterase Stool Occult Blood NEGATIVE C. difficile Toxin A&B C. difficile Antigen C. difficile Interpret COVID-19 (SUNDAR) Negative COVID-19 Clin Com See Note 10/12/20 01:27 MCV MCH MCHC RDW Plt Count MPV Immature Gran % (Auto) Neut % (Auto) Lymph % (Auto) [place] % (Auto) Eos % (Auto) Baso % (Auto) Lymph # (Auto) [place] # (Auto) Eos # (Auto) Baso # (Auto) Abs Immat Gran (auto) Absolute Neuts (auto) Absolute Nucleated RBC Nucleated RBC % (auto) Anion Gap Estim Creat Clear Calc Estimated GFR Random Glucose Lactic Acid Calcium Total Bilirubin AST ALT Alkaline Phosphatase Total Protein Albumin Lipase Urine Color YELLOW Urine Appearance CLEAR Urine pH 6.0 Ur Specific [place] <= 1.005 Urine Protein NEG Urine Glucose (UA) NEG Urine Ketones 15 Urine Blood NEG Urine Nitrite NEG Ur Leukocyte Esterase NEG Stool Occult Blood C. difficile Toxin A&B C. difficile Antigen C. difficile Interpret COVID-19 (SUNDAR) COVID-19 Clin Com Imaging Radiologist's Impressions: Impressions Abdomen/Pelvis CT 10/11/20 22:42 IMPRESSION: 1. An etiology for the patient's abdominal pain has not been found. 2. No significant interval change when compared to the prior study. 3. Incidental findings include prior gastric surgery, hiatal hernia, nonobstructing right renal calculus, benign right renal angiomyolipoma, colonic diverticulosis without diverticulitis, hernia repair, small right inguinal hernia containing only fat, unchanged left ovarian cyst and degenerative changes in the spine Assessment and Plan (1) Diarrhea: Status: Acute (2) C. difficile colitis: Status: Acute 60-year-old female with past medical history of hypothyroidism who presents to the hospital with complaints of more than 10 episodes of diarrhea for the past 2 days. Found to have C diff. # intractable diarrhea - secondary to C diff - no evidence of complication on CT abdomen - at this time will start her on vancomycin p.o. - IV fluids - follow resolution of diarrhea # severe C diff - has abdominal pain, WBC more than 15,000 - C diff antigen as well as toxins positive - most likely du to use of antibiotics in the recent past - will start her on 250 mg of Vancomycin q.i.d. # hypothyroidism - continue levothyroxine # anxiety and depression - continue home medications # insomnia - continue Ambien DVT prophylaxis: Lovenox Quality Stroke Does the patient have a stroke diagnosis?: No VTE Prior VTE?: No VTE Risk Level:: Medical - moderate - high VTE Device Contraindication: Treatment Not Tolerated VTE Drug Contraindication: N/A - Med Ordered
--- NOTE | 2020-10-12 06:38 | PC.NURSE ---
Pharmacy called for 0630 Levothyroxine. Pharmacy to bring medication to ED. Pt sleeping in bed at this time, VSS.
[2020-10-12] MEDS: vancomycin HCL 125 MG CAPSULE 250 MG PO ×3 (07:30→19:29)
[2020-10-12] MEDS: Omeprazole 40 MG CAPSULE.DR PO ×2 (07:33→16:34)
[2020-10-12] MEDS: Levothyroxine Sodium 125 MCG TABLET PO (07:33)
[2020-10-12] MEDS: busPIRone HCl 10 MG TABLET 30 MG PO ×2 (10:44→20:53)
[2020-10-12] MEDS: Ezetimibe 10 MG TABLET PO (10:45)
[2020-10-12] MEDS: carisoprodoL 350 MG TABLET PO ×4 (10:45→20:54)
[2020-10-12] MEDS: 0.9 % Sodium Chloride Flush 3 ML SYRINGE IVFLUSH ×2 (10:45→16:34)
--- NOTE | 2020-10-12 12:35 | P.PNIM_ITS ---
Subjective Subjective Date of Service: 10/12/20 Interval History: 5 episodes watery diarrhea since this AM able to tolerate a little PO, no vomiting no fever abd discomfort- crampy, not severe Physical Exam Vital Signs: Vital Signs: Last Vital Signs Temp 98.9 F 10/11/20 20:11 Pulse 62 10/12/20 07:35 Resp 18 10/12/20 07:35 BP 123/70 10/12/20 07:35 Pulse Ox 98 10/12/20 07:35 Body Mass Index 37.3 Gen: in no acute distress Abd: mild bilateral lower quadrant tenderness Ext: no edema Skin: warm/well-perfused Psych: appropriate affect Objective Data Current Medications Generic Name Dose Route Start Last Admin Trade Name Freq PRN Reason Stop Dose Admin Acetaminophen 650 mg 10/12/20 01:28 10/12/20 01:56 Acetaminophen 325 Mg Tablet PO 650 mg Q6H PRN Administration Pain, Mild (Pain Scale 1-3) Buspirone HCl 30 mg 10/12/20 09:00 10/12/20 10:44 Buspirone Hcl 10 Mg Tablet PO 30 mg BID KERWIN Administration Carisoprodol 350 mg 10/12/20 09:00 10/12/20 10:45 Carisoprodol 350 Mg Tablet PO 350 mg QID KERWIN Administration Ezetimibe 10 mg 10/12/20 09:00 10/12/20 10:45 Ezetimibe 10 Mg Tablet PO 10 mg DAILY KERWIN Administration Enoxaparin Sodium 40 mg 10/12/20 02:00 10/12/20 01:57 Enoxaparin Sodium 40 Mg/0.4 Ml Syringe SUBCUT 40 mg Q24H KERWIN Administration Lactated Ringer's 1,000 mls @ 100 mls/hr 10/12/20 01:28 10/12/20 10:45 Lr IVCONT 100 mls/hr .Q10H KERWIN Administration Levothyroxine Sodium 125 mcg 10/12/20 06:30 10/12/20 07:33 Levothyroxine Sodium 125 Mcg Tablet PO 125 mcg DAILY@0630 KERWIN Administration Omeprazole 40 mg 10/12/20 06:45 10/12/20 07:33 Omeprazole 40 Mg Capsule.Dr PO 40 mg BID@0630,1630 KERWIN Administration Ondansetron HCl 4 mg 10/12/20 01:28 Ondansetron Hcl 4 Mg/2 Ml Vial IVPUSH Q8H PRN Nausea and Vomiting Sodium Chloride 3 ml 10/12/20 08:00 10/12/20 10:45 0.9 % Sodium Chloride Flush 3 Ml Syringe IVFLUSH 3 ml QSHIFT KERWIN Administration Tramadol HCl 50 mg 10/12/20 01:28 Tramadol Hcl 50 Mg Tablet PO TID PRN pain Vancomycin HCl 250 mg 10/12/20 01:28 10/12/20 07:30 Vancomycin Hcl 125 Mg Capsule PO 250 mg Q6H KERWIN Administration Venlafaxine HCl 75 mg 10/12/20 01:28 10/12/20 01:56 Venlafaxine Hcl Er 75 Mg Cap.Er.24h PO 75 mg BEDTIME KERWNI Administration Venlafaxine HCl 150 mg 10/12/20 01:28 10/12/20 01:56 Venlafaxine Hcl Er 150 Mg Cap.Er.24h PO 150 mg BEDTIME KERWIN Administration Zolpidem Tartrate 5 mg 10/12/20 01:28 10/12/20 01:56 Zolpidem Tartrate 5 Mg Tablet PO 5 mg BEDTIME PRN Administration insomnia Labs CBC & Chem 7: 10/11/20 20:05 10/11/20 20:05 Labs: Laboratory Results - last 24 hr 10/11/20 10/11/20 10/11/20 20:05 20:05 22:06 WBC 18.3 H RBC 4.60 Hgb 13.6 Hct 39.7 MCV 86.3 MCH 29.6 MCHC 34.3 RDW 13.4 Plt Count 266 MPV 12.2 Immature Gran % (Auto) 0.5 H Neut % (Auto) 73.5 H Lymph % (Auto) 18.2 L [place] % (Auto) 7.2 Eos % (Auto) 0.3 Baso % (Auto) 0.3 Lymph # (Auto) 3.3 [place] # (Auto) 1.3 H Eos # (Auto) 0.1 Baso # (Auto) 0.1 Abs Immat Gran (auto) 0.09 H Absolute Neuts (auto) 13.5 H Absolute Nucleated RBC 0.000 Nucleated RBC % (auto) 0.0 Sodium 139 Potassium 3.6 Chloride 105 Carbon Dioxide 20 L Anion Gap 18 BUN 7 L Creatinine 0.73 Estim Creat Clear Calc 105.0 Estimated GFR > 60 Random Glucose 108 Lactic Acid Calcium 9.1 D Total Bilirubin 0.7 AST 15 ALT 15 Alkaline Phosphatase 64 Total Protein 6.8 Albumin 4.1 Lipase 8 Urine Color Urine Appearance Urine pH Ur Specific [place] Urine Protein Urine Glucose (UA) Urine Ketones Urine Blood Urine Nitrite Ur Leukocyte Esterase Stool Occult Blood C. difficile Toxin A&B Positive A C. difficile Antigen Positive A C. difficile Interpret SEE NOTE COVID-19 (SUNDAR) COVID-19 RFIDeas Com 10/11/20 10/11/20 10/11/20 23:42 23:42 23:42 WBC RBC Hgb Hct MCV MCH MCHC RDW Plt Count MPV Immature Gran % (Auto) Neut % (Auto) Lymph % (Auto) [place] % (Auto) Eos % (Auto) Baso % (Auto) Lymph # (Auto) [place] # (Auto) Eos # (Auto) Baso # (Auto) Abs Immat Gran (auto) Absolute Neuts (auto) Absolute Nucleated RBC Nucleated RBC % (auto) Sodium Potassium Chloride Carbon Dioxide Anion Gap BUN Creatinine Estim Creat Clear Calc Estimated GFR Random Glucose Lactic Acid 0.9 Calcium Total Bilirubin AST ALT Alkaline Phosphatase Total Protein Albumin Lipase Urine Color Urine Appearance Urine pH Ur Specific [place] Urine Protein Urine Glucose (UA) Urine Ketones Urine Blood Urine Nitrite Ur Leukocyte Esterase Stool Occult Blood NEGATIVE C. difficile Toxin A&B C. difficile Antigen C. difficile Interpret COVID-19 (SUNDAR) Negative COVID-19 RFIDeas Com See Note 10/12/20 01:27 WBC RBC Hgb Hct MCV MCH MCHC RDW Plt Count MPV Immature Gran % (Auto) Neut % (Auto) Lymph % (Auto) [place] % (Auto) Eos % (Auto) Baso % (Auto) Lymph # (Auto) [place] # (Auto) Eos # (Auto) Baso # (Auto) Abs Immat Gran (auto) Absolute Neuts (auto) Absolute Nucleated RBC Nucleated RBC % (auto) Sodium Potassium Chloride Carbon Dioxide Anion Gap BUN Creatinine Estim Creat Clear Calc Estimated GFR Random Glucose Lactic Acid Calcium Total Bilirubin AST ALT Alkaline Phosphatase Total Protein Albumin Lipase Urine Color YELLOW Urine Appearance CLEAR Urine pH 6.0 Ur Specific [place] <= 1.005 Urine Protein NEG Urine Glucose (UA) NEG Urine Ketones 15 Urine Blood NEG Urine Nitrite NEG Ur Leukocyte Esterase NEG Stool Occult Blood C. difficile Toxin A&B C. difficile Antigen C. difficile Interpret COVID-19 (SUNDAR) COVID-19 Clin Com Impressions Abdomen/Pelvis CT 10/11/20 22:42 IMPRESSION: 1. An etiology for the patient's abdominal pain has not been found. 2. No significant interval change when compared to the prior study. 3. Incidental findings include prior gastric surgery, hiatal hernia, nonobstructing right renal calculus, benign right renal angiomyolipoma, colonic diverticulosis without diverticulitis, hernia repair, small right inguinal hernia containing only fat, unchanged left ovarian cyst and degenerative changes in the spine Quality Stroke Does the patient have a stroke diagnosis?: No VTE Prior VTE?: No VTE Risk Level:: Medical - moderate - high VTE Device Contraindication: Treatment Not Tolerated VTE Drug Contraindication: N/A - Med Ordered Assessment and Plan (1) C. difficile colitis: Status: Acute Assessment and Plan: hospital d#1 60yo F presenting with 10 episodes of diarrhea/2 days with abd discomfort, found to be C. difficile positive, multiple recent ABX exposures (clinda, amox/clav, and levoflox) # severe C difficile colitis (by virtue of leucocytosis) - vancomycin PO d#06/09, IV fluid support # hypothyroidism - continue LT4 # anxiety and depression - continue home medications # insomnia - continue venlafaxine, buspirone # VTE ppx - LMWH
[2020-10-12] MEDS: traMADoL HCL 50 MG TABLET PO (17:07)
[2020-10-13] MEDS: vancomycin HCL 125 MG CAPSULE 250 MG PO ×4 (02:37→20:50)
[2020-10-13] MEDS: Enoxaparin Sodium 40 MG/0.4 ML SYRINGE SUBCUT (02:38)
[2020-10-13] MEDS: Lactated Ringers 1,000 ML 100 ML IVCONT ×2 (03:02→11:20)
[2020-10-13 04:55] VITALS: BP 148/88; PULSE 55; RESP 16; TEMP 36.4; O2SAT 97
[2020-10-13] MEDS: Omeprazole 40 MG CAPSULE.DR PO ×2 (05:31→16:12)
[2020-10-13] MEDS: Levothyroxine Sodium 125 MCG TABLET PO (05:31)
[2020-10-13 06:49] LABS: Basophils Percent Auto 0.4 % (0-2); Eosinophils Absolute Auto 0.1 X10*3/uL (0.0-0.4); Eosinophils Percent Auto 1.8 % (0-4); Hematocrit 32.9 % (37-47); Hemoglobin 10.9 g/dl (12.0-16.0); Imm Gran Abs Auto 0.02 X10*3/uL (0.00-0.03); Imm Gran Pct Auto 0.4 % (0.0-0.4); Lymphocytes Absolute Auto 2.2 X10*3/uL (1.2-4.9); Lymphocytes Percent Auto 42.2 % (20-40); MANUAL DIFF FLAG NO; Mean Corpuscular HGB Conc 33.1 g/dl (31.0-35.0); Mean Corpuscular Hemoglobin 29.1 pg (27.0-33.0); Mean Corpuscular Volume 87.7 fL (80-98); Mean Platelet Volume 12.4 fL (9.4-12.3); Monocytes Absolute Auto 0.4 X10*3/uL (0.1-1.2); Monocytes Percent Auto 7.6 % (2-11); Neutrophils Absolute Auto 2.4 X10*3/uL (2.0-8.3); Neutrophils Percent Auto 47.6 % (45-73); Platelet Count 190 X10*3/uL (160-400); Red Blood Count 3.75 X10*6/uL (4.20-5.50); Red Cell Distribution Width 13.4 % (11.0-16.0); White Blood Count 5.1 X10*3/uL (4.8-10.8)
[2020-10-13 07:14] LABS: Anion Gap 10 (12-20); Blood Urea Nitrogen 4 mg/dL (9-16); Calcium 7.8 mg/dL (8.4-10.2); Carbon Dioxide 24 mmol/L (22-29); Chloride 111 mmol/L (96-108); Creatinine Clr Calc Pharmacy 127.7; Estimated Glomerular Filt Rate > 60; Glucose Random 88 mg/dL (60-115); Potassium 3.3 mmol/L (3.3-5.1); Sodium 142 mmol/L (135-145)
[2020-10-13] MEDS: Ezetimibe 10 MG TABLET PO (07:42)
[2020-10-13] MEDS: carisoprodoL 350 MG TABLET PO ×4 (07:43→20:50)
[2020-10-13] MEDS: busPIRone HCl 10 MG TABLET 30 MG PO ×2 (07:43→20:50)
[2020-10-13 07:48] VITALS: BP 140/83; PULSE 58; RESP 16; TEMP 36; O2SAT 98
[2020-10-13 11:18] VITALS: BP 139/92; PULSE 57; RESP 16; TEMP 36.1; O2SAT 99
--- NOTE | 2020-10-13 12:09 | P.PNIM_ITS ---
Subjective Subjective Date of Service: 10/13/20 Interval History: Stools are less loose. C/o mild lower abdominal cramping. No N/V. Tolerating diet. Physical Exam Vital Signs: Vital Signs: Last Vital Signs Temp 96.9 F 10/13/20 11:18 Pulse 57 10/13/20 11:18 Resp 16 10/13/20 11:18 BP 139/92 H 10/13/20 11:18 Pulse Ox 99 10/13/20 11:18 Body Mass Index 37.3 Gen: in no acute distress HEENT: sclera anicteric, moist mucus membranes Neck: supple Lungs: clear to auscultation bilaterally Heart: regular rate and rhythm, no murmurs Abd: soft, mild lower abdominal tenderness without rebound/guarding Ext: no edema Skin: warm/well-perfused Neuro: alert and oriented x3, no focal findings Psych: appropriate affect Objective Data Current Medications Generic Name Dose Route Start Last Admin Trade Name Freq PRN Reason Stop Dose Admin Acetaminophen 650 mg 10/12/20 01:28 10/12/20 01:56 Acetaminophen 325 Mg Tablet PO 650 mg Q6H PRN Administration Pain, Mild (Pain Scale 1-3) Buspirone HCl 30 mg 10/12/20 09:00 10/13/20 07:43 Buspirone Hcl 10 Mg Tablet PO 30 mg BID KERWIN Administration Carisoprodol 350 mg 10/12/20 09:00 10/13/20 07:43 Carisoprodol 350 Mg Tablet PO 350 mg QID KERWIN Administration Ezetimibe 10 mg 10/12/20 09:00 10/13/20 07:42 Ezetimibe 10 Mg Tablet PO 10 mg DAILY KERWIN Administration Enoxaparin Sodium 40 mg 10/12/20 02:00 10/13/20 02:38 Enoxaparin Sodium 40 Mg/0.4 Ml Syringe SUBCUT 40 mg Q24H KERWIN Administration Lactated Ringer's 1,000 mls @ 100 mls/hr 10/12/20 01:28 10/13/20 11:20 Lr IVCONT 100 mls/hr .Q10H KERWIN Administration Levothyroxine Sodium 125 mcg 10/12/20 06:30 10/13/20 05:31 Levothyroxine Sodium 125 Mcg Tablet PO 125 mcg DAILY@0630 KERWIN Administration Omeprazole 40 mg 10/12/20 06:45 10/13/20 05:31 Omeprazole 40 Mg Capsule. PO 40 mg BID@3441,4570 KERWIN Administration Ondansetron HCl 4 mg 10/12/20 01:28 Ondansetron Hcl 4 Mg/2 Ml Vial IVPUSH Q8H PRN Nausea and Vomiting Sodium Chloride 3 ml 10/12/20 08:00 10/13/20 07:44 0.9 % Sodium Chloride Flush 3 Ml Syringe IVFLUSH Not Given QSHIFT KERWIN Tramadol HCl 50 mg 10/12/20 01:28 10/12/20 17:07 Tramadol Hcl 50 Mg Tablet PO 50 mg TID PRN Administration pain Vancomycin HCl 250 mg 10/12/20 01:28 10/13/20 07:43 Vancomycin Hcl 125 Mg Capsule PO 250 mg Q6H KERWIN Administration Venlafaxine HCl 75 mg 10/12/20 01:28 10/12/20 21:13 Venlafaxine Hcl Er 75 Mg Cap.Er.24h PO 75 mg BEDTIME KERWIN Administration Venlafaxine HCl 150 mg 10/12/20 01:28 10/12/20 21:13 Venlafaxine Hcl Er 150 Mg Cap.Er.24h PO 150 mg BEDTIME KERWIN Administration Zolpidem Tartrate 5 mg 10/12/20 01:28 10/12/20 01:56 Zolpidem Tartrate 5 Mg Tablet PO 5 mg BEDTIME PRN Administration insomnia Labs CBC & Chem 7: 10/13/20 06:12 10/13/20 06:12 Labs: Laboratory Results - last 24 hr 10/13/20 10/13/20 06:12 06:12 WBC 5.1 RBC 3.75 L Hgb 10.9 L Hct 32.9 L MCV 87.7 MCH 29.1 MCHC 33.1 RDW 13.4 Plt Count 190 D MPV 12.4 H Immature Gran % (Auto) 0.4 Neut % (Auto) 47.6 Lymph % (Auto) 42.2 H [place] % (Auto) 7.6 Eos % (Auto) 1.8 Baso % (Auto) 0.4 Lymph # (Auto) 2.2 [place] # (Auto) 0.4 Eos # (Auto) 0.1 Baso # (Auto) 0.0 Abs Immat Gran (auto) 0.02 Absolute Neuts (auto) 2.4 Absolute Nucleated RBC 0.000 Nucleated RBC % (auto) 0.0 Sodium 142 Potassium 3.3 Chloride 111 H Carbon Dioxide 24 Anion Gap 10 L BUN 4 L Creatinine 0.60 Estim Creat Clear Calc 127.7 Estimated GFR > 60 Random Glucose 88 Calcium 7.8 L D Microbiology Microbiology Results: Microbiology 10/11/20 23:42 Blood Culture - Preliminary Blood - Venous No growth after 24 hours. 10/11/20 23:42 Blood Culture - Preliminary Blood - Venous No growth after 24 hours. Quality Stroke Does the patient have a stroke diagnosis?: No VTE Prior VTE?: No VTE Risk Level:: Medical - moderate - high VTE Device Contraindication: Treatment Not Tolerated VTE Drug Contraindication: N/A - Med Ordered Assessment and Plan (1) C. difficile colitis: Status: Acute Assessment and Plan: hospital d#2 60yo F presenting with 10 episodes of diarrhea/2 days with abd discomfort, found to be C. difficile positive, multiple recent ABX exposures (clinda, amox/clav, and levoflox) # severe C difficile colitis (by virtue of leucocytosis) - vancomycin PO d#06/09, continue IV fluids # leukocytosis - resolved # hypothyroidism - continue LT4 # mood disorder - continue venlafaxine, buspirone # VTE ppx - LMWH
--- NOTE | 2020-10-13 13:04 | MHC.CM.PN ---
CM MET WITH PT WHO REPORTS SHE LIVES WITH HER AND IS INDEPENDENT WITH CARE AND MOBILITY. PT REPORTS SHE HAS NO SERVICES AND ONLY A NEBULIZER FOR DME. PT DID NOT HAVE A HCP HAND MODEL BUT COMPLETED ONE TODAY NAMING HER AND DAUGHTER HER PRIMARY AND ALTERNATE AGENTS RESPECTIVELY. PT REPORTS HER PCP IS ARTHUR MARCANO. IMM DELIVERED CURRENT DC PLAN IS HOME WITH NO SERVICES
[2020-10-13 15:36] VITALS: BP 148/86; PULSE 59; RESP 16; TEMP 36.2; O2SAT 98
--- NOTE | 2020-10-13 16:19 | PC.NURSE ---
P bilateral feet and hands edema present I Dr. Knight notified E will monitor
[2020-10-13 20:00] VITALS: BP 137/79; PULSE 61; RESP 18; TEMP 36.1; O2SAT 100
[2020-10-13] MEDS: Venlafaxine HCl ER 75 MG CAP.ER.24H PO (20:50)
[2020-10-13] MEDS: Venlafaxine HCl ER 150 MG CAP.ER.24H PO (20:51)
[2020-10-14] VITALS: BP 119/66; PULSE 61; RESP 16; TEMP 36.1; O2SAT 99
[2020-10-14] MEDS: 0.9 % Sodium Chloride Flush 3 ML SYRINGE IVFLUSH ×4 (00:56→20:40)
[2020-10-14] MEDS: vancomycin HCL 125 MG CAPSULE 250 MG PO ×4 (01:05→19:47)
[2020-10-14] MEDS: Enoxaparin Sodium 40 MG/0.4 ML SYRINGE SUBCUT (01:06)
[2020-10-14 04:00] VITALS: BP 122/72; PULSE 59; RESP 16; TEMP 36.2; O2SAT 95
[2020-10-14] MEDS: Levothyroxine Sodium 125 MCG TABLET PO (06:20)
[2020-10-14] MEDS: Omeprazole 40 MG CAPSULE.DR PO ×2 (06:20→16:37)
[2020-10-14 07:36] VITALS: BP 150/86; PULSE 60; RESP 17; TEMP 36.9; O2SAT 96
[2020-10-14] MEDS: carisoprodoL 350 MG TABLET PO ×4 (08:42→20:36)
[2020-10-14] MEDS: busPIRone HCl 10 MG TABLET 30 MG PO ×2 (08:42→20:36)
[2020-10-14] MEDS: Ezetimibe 10 MG TABLET PO (08:42)
[2020-10-14 12:00] VITALS: BP 156/76; PULSE 60; RESP 18; TEMP 36.1; O2SAT 99
--- NOTE | 2020-10-14 13:05 | HO.PM.IMPN ---
Subjective Subjective Date of Service: 10/14/20 Interval History: ongoing watery diarrhea, innumerable episodes yesterday tolerating diet Physical Exam Vital Signs: Vital Signs: Last Vital Signs Temp 96.9 F 10/14/20 12:00 Pulse 60 10/14/20 12:00 Resp 18 10/14/20 12:00 BP 156/76 H 10/14/20 12:00 Pulse Ox 99 10/14/20 12:00 Body Mass Index 37.3 Gen: in no acute distress HEENT: sclera anicteric, moist mucus membranes Neck: supple Lungs: clear to auscultation bilaterally Heart: regular rate and rhythm, no murmurs Abd: soft, mild lower abdominal tenderness without rebound/guarding Ext: no edema Skin: warm/well-perfused Neuro: alert and oriented x3, no focal findings Psych: appropriate affect Objective Data Current Medications Generic Name Dose Route Start Last Admin Trade Name Freq PRN Reason Stop Dose Admin Acetaminophen 650 mg 10/12/20 01:28 10/12/20 01:56 Acetaminophen 325 Mg Tablet PO 650 mg Q6H PRN Administration Pain, Mild (Pain Scale 1-3) Buspirone HCl 30 mg 10/12/20 09:00 10/14/20 08:42 Buspirone Hcl 10 Mg Tablet PO 30 mg BID KERWIN Administration Carisoprodol 350 mg 10/12/20 09:00 10/14/20 08:42 Carisoprodol 350 Mg Tablet PO 350 mg QID KERWIN Administration Ezetimibe 10 mg 10/12/20 09:00 10/14/20 08:42 Ezetimibe 10 Mg Tablet PO 10 mg DAILY KERWIN Administration Enoxaparin Sodium 40 mg 10/12/20 02:00 10/14/20 01:06 Enoxaparin Sodium 40 Mg/0.4 Ml Syringe SUBCUT 40 mg Q24H KERWIN Administration Levothyroxine Sodium 125 mcg 10/12/20 06:30 10/14/20 06:20 Levothyroxine Sodium 125 Mcg Tablet PO 125 mcg DAILY@0630 KERWIN Administration Omeprazole 40 mg 10/12/20 06:45 10/14/20 06:20 Omeprazole 40 Mg Capsule.Dr PO 40 mg BID@0630,1630 KERWIN Administration Ondansetron HCl 4 mg 10/12/20 01:28 Ondansetron Hcl 4 Mg/2 Ml Vial IVPUSH Q8H PRN Nausea and Vomiting Sodium Chloride 3 ml 10/12/20 08:00 10/14/20 08:42 0.9 % Sodium Chloride Flush 3 Ml Syringe IVFLUSH 3 ml QSHIFT KERWIN Administration Tramadol HCl 50 mg 10/12/20 01:28 10/12/20 17:07 Tramadol Hcl 50 Mg Tablet PO 50 mg TID PRN Administration pain Vancomycin HCl 250 mg 10/12/20 01:28 10/14/20 08:42 Vancomycin Hcl 125 Mg Capsule PO 250 mg Q6H KERWIN Administration Venlafaxine HCl 75 mg 10/12/20 01:28 10/13/20 20:50 Venlafaxine Hcl Er 75 Mg Cap.Er.24h PO 75 mg BEDTIME KERWIN Administration Venlafaxine HCl 150 mg 10/12/20 01:28 10/13/20 20:51 Venlafaxine Hcl Er 150 Mg Cap.Er.24h PO 150 mg BEDTIME KERWIN Administration Zolpidem Tartrate 5 mg 10/12/20 01:28 10/12/20 01:56 Zolpidem Tartrate 5 Mg Tablet PO 5 mg BEDTIME PRN Administration insomnia Labs CBC & Chem 7: 10/13/20 06:12 10/13/20 06:12 Microbiology Microbiology Results: Microbiology 10/11/20 23:42 Blood Culture - Preliminary Blood - Venous No growth after 48 hours. 10/11/20 23:42 Blood Culture - Preliminary Blood - Venous No growth after 48 hours. Quality Stroke Does the patient have a stroke diagnosis?: No VTE Prior VTE?: No VTE Risk Level:: Medical - moderate - high VTE Device Contraindication: Treatment Not Tolerated VTE Drug Contraindication: N/A - Med Ordered Assessment and Plan (1) C. difficile colitis: Status: Acute Assessment and Plan: hospital d#3 60yo F presenting with 10 episodes of diarrhea/2 days with abd discomfort, found to be C. difficile positive, multiple recent ABX exposures (clinda, amox/clav, and levoflox) # severe C difficile colitis (by virtue of leucocytosis) - vancomycin PO d#07/07, check labs in AM # leukocytosis - resolved # hypothyroidism - continue LT4 # mood disorder - continue venlafaxine, buspirone # VTE ppx - LMWH # dispo - possibly home tomorrow if diarrhea better-controlled
--- NOTE | 2020-10-14 13:12 | MHC.CM.PN ---
nurse customer care representative note electronic medical record reviewed along with case discussed with staff nurse and on multiple disciplinary home anticipate no serviced rounds. admitting diagnosis c-diff colitis, met with patient she reported she is feeling much better sitting in the chair at this time and has been ambulating in the hallways per documentation patient continues to have watery diarrhea, inumerable episodes yesterday, tolerating diet if medicaly stable and with decreased amount of stools possible discharge home 1-2 days
[2020-10-14 15:39] VITALS: BP 144/80; PULSE 58; RESP 16; TEMP 36.3; O2SAT 98
--- NOTE | 2020-10-14 15:54 | PC.NURSE ---
Skin assesment completed today. No skin issues noted.
[2020-10-14 19:48] VITALS: BP 158/80; PULSE 57; RESP 16; TEMP 36.2; O2SAT 97
[2020-10-14] MEDS: Venlafaxine HCl ER 150 MG CAP.ER.24H PO (20:36)
[2020-10-14] MEDS: Venlafaxine HCl ER 75 MG CAP.ER.24H PO (20:36)
[2020-10-15] VITALS: BP 157/93; PULSE 58; RESP 18; TEMP 36; O2SAT 100
[2020-10-15] MEDS: vancomycin HCL 125 MG CAPSULE 250 MG PO ×3 (00:31→13:16)
[2020-10-15] MEDS: Enoxaparin Sodium 40 MG/0.4 ML SYRINGE SUBCUT (01:12)
[2020-10-15 04:00] VITALS: RESP 20
[2020-10-15 06:16] LABS: Hematocrit 35.8 % (37-47); Hemoglobin 11.9 g/dl (12.0-16.0); Mean Corpuscular HGB Conc 33.2 g/dl (31.0-35.0); Mean Corpuscular Hemoglobin 28.8 pg (27.0-33.0); Mean Corpuscular Volume 86.7 fL (80-98); Mean Platelet Volume 12.3 fL (9.4-12.3); Platelet Count 235 X10*3/uL (160-400); Red Blood Count 4.13 X10*6/uL (4.20-5.50); Red Cell Distribution Width 13.1 % (11.0-16.0)
[2020-10-15] MEDS: Omeprazole 40 MG CAPSULE.DR PO (06:18)
[2020-10-15] MEDS: Levothyroxine Sodium 125 MCG TABLET PO (06:18)
[2020-10-15 06:44] LABS: Anion Gap 11 (12-20); Blood Urea Nitrogen 6 mg/dL (9-16); Calcium 8.4 mg/dL (8.4-10.2); Carbon Dioxide 26 mmol/L (22-29); Chloride 107 mmol/L (96-108); Creatinine Clr Calc Pharmacy 121.6; Estimated Glomerular Filt Rate > 60; Glucose Random 97 mg/dL (60-115); Potassium 3.4 mmol/L (3.3-5.1); Sodium 141 mmol/L (135-145)
[2020-10-15 07:13] VITALS: BP 140/85; PULSE 60; RESP 19; TEMP 36.9; O2SAT 98
[2020-10-15] MEDS: 0.9 % Sodium Chloride Flush 3 ML SYRINGE IVFLUSH (08:24)
[2020-10-15] MEDS: carisoprodoL 350 MG TABLET PO ×2 (08:24→13:16)
[2020-10-15] MEDS: Ezetimibe 10 MG TABLET PO (08:24)
[2020-10-15] MEDS: busPIRone HCl 10 MG TABLET 30 MG PO (08:24)
[2020-10-15] MEDS: ondansetron HCL 4 MG/2 ML VIAL IVPUSH (08:31)
--- NOTE | 2020-10-15 11:12 | MHC.CM.PN ---
NURSE PASTE MIXER LIQUID NOTE-LATE ENTRY ELECTRONIC MEDICAL RECORD REVIEWED PATIENT WAS DISCHARGED HOME LATE YESTERDAY [facility] NO VNA ORDERS WRITTEN DISCHARGE PLAN HOME NO SERVICES TRANSPORTATION FAMILY
[2020-10-15 11:27] VITALS: BP 157/77; PULSE 52; RESP 18; TEMP 36.1; O2SAT 98
--- NOTE | 2020-10-15 13:15 | PM.DS ---
DS: Providers Provider Date of Service: 10/15/20 Date of admission: 10/12/20 01:03 Primary care physician: Rock Rodrigues MD DS: Diagnosis Discharge Diagnosis (1) C. difficile colitis: Status: Acute (2) Leucocytosis: Status: Acute DS: Medications Discharge Medications Home Medications: Home Medications Medication Instructions Recorded Confirmed buspirone 30 mg PO BID 10/11/20 10/11/20 carisoprodol 350 mg PO QID 10/11/20 10/11/20 ezetimibe 10 mg PO DAILY 10/11/20 10/11/20 levothyroxine 125 mcg PO DAILY 10/11/20 10/11/20 omeprazole 40 mg PO BID 10/11/20 10/12/20 venlafaxine 75 mg PO BEDTIME 10/11/20 10/11/20 venlafaxine 150 mg PO BEDTIME 10/11/20 10/11/20 zolpidem 10 mg PO BEDTIME PRN 10/11/20 10/11/20 Previous Rx's Medication Instructions Recorded tramadol 50 mg PO TID PRN #10 tab 09/26/20 ondansetron 4 mg PO Q8H PRN #14 tab 10/15/20 vancomycin 125 mg PO QID #28 cap 10/15/20 DS: Summary Hospital Course Hospital Course: From admission H+P by hospitalist Joy Miller, 10/12/20: This is a 60-year-old female with past medical history of gastric bypass, asthma, thyroid cancer status post thyroidectomy, hypothyroidism, who presents to the hospital with complaints of over 10 episodes of diarrhea for the past 2 days. Patient reports that she started having diarrhea since that she started taking pre on probiotic back in July. Patient reports that she then went to [facility] in August and had tooth abscess for which she was prescribed antibiotics including clindamycin then she developed abdominal pain about 2 weeks ago, came to the ED here and was diagnosed with diverticulitis and was prescribed Flagyl and levofloxacin with no resolution of her diarrhea. About 1 day ago her diarrhea increase in number where she is now having more than 10 episodes of watery diarrhea associated with abdominal cramping in the lower abdomen. She reports nausea, some chills with no fever, no bloody diarrhea, denies any chest pain, no shortness of breath, no headache or change in vision, no lower extremity edema. On arrival to the ED patient hemodynamically stable with no significant abnormal vitals Labs are significant for WBC count of 18.3, BUN of 7, creatinine of 0.73, labs otherwise unremarkable. C diff showed positive toxin as well as antigen. Abdominal CT shows an etiology for the patient abdominal pain has not been found. No significant interval change when compared to prior study, incidental findings including prior gastric surgery, hiatal hernia, nonobstructing right renal calculus. No evidence of diverticulitis. The patient was admitted to the medical/surgical floor for severe Clostridium difficile colitis [severe by virtue of leucocytosis]. She was started on PO vancomycin and her symptoms improved. The colitis was likely due to multiple recent high-risk antibiotic exposures including clindamycin, amoxicillin/clavulanate, and levofloxacin. Leukocytosis resolved and her abdomen was benign. She completed 3 days of treatment in the hospital and was discharged home to complete 7 more days for total of 10 days. She should follow up with her primary care doctor in 1 week. Time Spent with Patient Time attestation: Total time spent providing and/or coordinating discharge services: 35 Discharge coordination time: Greater than 30 minutes Quality: Stroke Does the patient have a stroke diagnosis?: No Physical Exam Vital Signs: Vital Signs: Last Vital Signs Temp 96.9 F 10/15/20 11:27 Pulse 52 10/15/20 11:27 Resp 18 10/15/20 11:27 BP 157/77 H 10/15/20 11:27 Pulse Ox 98 10/15/20 11:27 Body Mass Index 37.3 Gen: in no acute distress HEENT: sclera anicteric, moist mucus membranes Neck: supple Lungs: clear to auscultation bilaterally Heart: regular rate and rhythm, no murmurs Abd: soft, non-tender, non-distended, normal bowel sounds Ext: no edema Skin: warm/well-perfused Neuro: alert and oriented x3, no focal findings Psych: appropriate affect DS: Data Data Completed and Pending Completed studies during hospitalization [Text1]: Laboratory Results WBC 5.0 X10*3/uL (4.8-10.8) 10/15/20 05:45 RBC 4.13 X10*6/uL (4.20-5.50) L 10/15/20 05:45 Hgb 11.9 g/dl (12.0-16.0) L 10/15/20 05:45 Hct 35.8 % (37-47) L 10/15/20 05:45 MCV 86.7 fL (80-98) 10/15/20 05:45 MCH 28.8 pg (27.0-33.0) 10/15/20 05:45 MCHC 33.2 g/dl (31.0-35.0) 10/15/20 05:45 RDW 13.1 % (11.0-16.0) 10/15/20 05:45 Plt Count 235 X10*3/uL (160-400) 10/15/20 05:45 MPV 12.3 fL (9.4-12.3) 10/15/20 05:45 Immature Gran % (Auto) 0.4 % (0.0-0.4) 10/13/20 06:12 Neut % (Auto) 47.6 % (45-73) 10/13/20 06:12 Lymph % (Auto) 42.2 % (20-40) H 10/13/20 06:12 [place] % (Auto) 7.6 % (2-11) 10/13/20 06:12 Eos % (Auto) 1.8 % (0-4) 10/13/20 06:12 Baso % (Auto) 0.4 % (0-2) 10/13/20 06:12 Lymph # (Auto) 2.2 X10*3/uL (1.2-4.9) 10/13/20 06:12 [place] # (Auto) 0.4 X10*3/uL (0.1-1.2) 10/13/20 06:12 Eos # (Auto) 0.1 X10*3/uL (0.0-0.4) 10/13/20 06:12 Baso # (Auto) 0.0 X10*3/uL (0.0-0.2) 10/13/20 06:12 Abs Immat Gran (auto) 0.02 X10*3/uL (0.00-0.03) 10/13/20 06:12 Absolute Neuts (auto) 2.4 X10*3/uL (2.0-8.3) 10/13/20 06:12 Absolute Nucleated RBC 0.000 X10*3/uL (0.0-0.012) 10/15/20 05:45 Nucleated RBC % (auto) 0.0 /100WBC (0.0-0.2) 10/15/20 05:45 Sodium 141 mmol/L (135-145) 10/15/20 05:45 Potassium 3.4 mmol/L (3.3-5.1) 10/15/20 05:45 Chloride 107 mmol/L (96-108) 10/15/20 05:45 Carbon Dioxide 26 mmol/L (22-29) 10/15/20 05:45 Anion Gap 11 (12-20) L 10/15/20 05:45 BUN 6 mg/dL (9-16) L 10/15/20 05:45 Creatinine 0.63 mg/dL (0.5-1.4) 10/15/20 05:45 Estim Creat Clear Calc 121.6 10/15/20 05:45 Estimated GFR > 60 10/15/20 05:45 Random Glucose 97 mg/dL (60-115) 10/15/20 05:45 Lactic Acid 0.9 mmol/L (0.5-2.0) 10/11/20 23:42 Calcium 8.4 mg/dL (8.4-10.2) D 10/15/20 05:45 Total Bilirubin 0.7 mg/dL (0.0-1.0) 10/11/20 20:05 AST 15 U/L (5-31) 10/11/20 20:05 ALT 15 U/L (0-31) 10/11/20 20:05 Alkaline Phosphatase 64 U/L (39-117) 10/11/20 20:05 Total Protein 6.8 g/dL (6.5-8.0) 10/11/20 20:05 Albumin 4.1 g/dL (3.5-5.0) 10/11/20 20:05 Lipase 8 U/L (8-78) 10/11/20 20:05 Urine Color YELLOW 10/12/20 01:27 Urine Appearance CLEAR 10/12/20 01:27 Urine pH 6.0 (5.0-8.0) 10/12/20 01:27 Ur Specific [place] <= 1.005 (1.005-1.025) 10/12/20 01:27 Urine Protein NEG MG/DL (NEG-TRACE) 10/12/20 01:27 Urine Glucose (UA) NEG MG/DL (NEG) 10/12/20 01:27 Urine Ketones 15 MG/DL (NEG) 10/12/20 01:27 Urine Blood NEG (NEG) 10/12/20 01:27 Urine Nitrite NEG (NEG) 10/12/20 01:27 Ur Leukocyte Esterase NEG (NEG) 10/12/20 01:27 Stool Occult Blood NEGATIVE (NEGATIVE) 10/11/20 23:42 C. difficile Toxin A&B Positive (Negative) A 10/11/20 22:06 C. difficile Antigen Positive (Negative) A 10/11/20 22:06 C. difficile Interpret SEE NOTE 10/11/20 22:06 COVID-19 (SUNDAR) Negative (Negative) 10/11/20 23:42 COVID-19 Clin Com See Note 10/11/20 23:42 Impressions Abdomen/Pelvis CT 10/11/20 22:42 IMPRESSION: 1. An etiology for the patient's abdominal pain has not been found. 2. No significant interval change when compared to the prior study. 3. Incidental findings include prior gastric surgery, hiatal hernia, nonobstructing right renal calculus, benign right renal angiomyolipoma, colonic diverticulosis without diverticulitis, hernia repair, small right inguinal hernia containing only fat, unchanged left ovarian cyst and degenerative changes in the spine Discharge Plan Discharge Patient Disposition: Home, Self-Care Discharge Diagnosis: Clostridium difficile colitis Referrals: Name,MD Rock [Physician] - 1 Week Discharge Medications: New vancomycin 125 mg Capsule 125 mg PO QID Qty: 28 RF: 0 ondansetron 4 mg tablet,disintegrating 4 mg PO Q8H PRN (Reason: nausea and vomiting) Qty: 14 RF: 0 Continued tramadol 50 mg tablet 50 mg PO TID PRN (Reason: pain) Qty: 10 RF: 0 carisoprodol 350 mg tablet 350 mg PO QID RF: 0 venlafaxine 75 mg capsule,extended release 24hr 75 mg PO BEDTIME RF: 0 venlafaxine 150 mg capsule,extended release 24hr 150 mg PO BEDTIME RF: 0 omeprazole 40 mg capsule,delayed release(DR/EC) 40 mg PO BID RF: 0 buspirone 30 mg tablet 30 mg PO BID RF: 0 levothyroxine 125 mcg tablet 125 mcg PO DAILY RF: 0 zolpidem 10 mg tablet 10 mg PO BEDTIME PRN (Reason: insomnia) RF: 0 ezetimibe 10 mg tablet 10 mg PO DAILY RF: 0 Discharge Orders: Discharge Order (Routine); Ordered 10/15/20 Ordered By: Rachael Knight Diet: advance to usual diet Activity on Discharge: As tolerated Stand Alone Forms: Patient Portal Discharge page Care Plan Goals: resolution of diarrhea Health Concerns: Clostridium difficile colitis Plan of Treatment: vancomycin 125 mg by mouth 4x a day for 7 days follow up with your primary care doctor in one week Assessment: as above Patient Instructions: C. Diff (Clostridioides Difficile) Infection (DC)
--- NOTE | 2020-10-15 13:42 | MHC.CM.PN ---
PT DISCHARGING HOME SELF-CARE, AT BEDSIDE AND WILL TRANSPORT.
== END 2020-10-15 14:20 | disposition home or self-care (01) | DRG 373 ==
LOC: HO.ED 23:42 → HO.EDOVER 10-12 01:21 → HO.S3 10-12 14:03
PROVIDERS: Admitting Provider Internal Medicine; Emergency Provider Student in an Organized Health Care Education/Training Program; Visit Provider Family Medicine
DX: A04.72 Enterocolitis due to Clostridium difficile, not specified as recurrent (principal); E86.0 Dehydration; E03.9 Hypothyroidism, unspecified; F41.9 Anxiety disorder, unspecified; G47.00 Insomnia, unspecified; D72.829 Elevated white blood cell count, unspecified; F32.9 Major depressive disorder, single episode, unspecified; Z85.850 Personal history of malignant neoplasm of thyroid; Z98.84 Bariatric surgery status; Z20.822 Contact with and (suspected) exposure to COVID-19; Z87.891 Personal history of nicotine dependence; Z88.2 Allergy status to sulfonamides; Z79.899 Other long term (current) drug therapy
CPT/HCPCS: 36415; 74177; 80048; 80053; 81003; 82272; 83605; 83690; 85025; 85027; 87040; 87324; 87449; 87635; 99285; J1650; J2405; Q9967

== ENCOUNTER 2020-11-20 11:22 | Outpatient (REF) | payer MEDICARE, MEDICAID, SELFPAY ==
[2020-11-20 13:24] LABS: Albumin Level 4.2 g/dL (3.5-5.0); Calcium 9.7 mg/dL (8.4-10.2); Estimated Glomerular Filt Rate > 60
[2020-11-20 13:39] LABS: Free T4 (Free Thyroxine) 1.06 ng/dL (0.71-1.85); Thyroid Stimulating Hormone 1.66 uIU/mL (0.32-4.0); Vitamin D 25-OH Total 24.1 ng/mL (>30)
[2020-11-21 13:37] LABS: Calcium (PTHI) 9.6 mg/dL (8.6-10.4); PTHI 44 pg/mL (14-64)
[2020-11-21 17:01] LABS: Thyroglobulin <0.1 ng/mL; Thyroglobulin Antibodies <1 IU/mL (< or = 1)
== END 2020-11-20 11:23 | disposition home or self-care (01) ==
LOC: HO.LAB 11:22
PROVIDERS: PCP Internal Medicine Geriatric Medicine; Visit Provider Internal Medicine
DX: E03.9 Hypothyroidism, unspecified (principal); E55.9 Vitamin D deficiency, unspecified; Z85.850 Personal history of malignant neoplasm of thyroid
CPT/HCPCS: 36415; 82040; 82306; 82310; 82565; 83970; 84432; 84439; 84443; 86800; 99202

== ENCOUNTER 2021-01-08 12:32 | Outpatient (REF) | payer MEDICARE, MEDICAID, SELFPAY ==
--- NOTE | ~2021-01-08 | MM_ITS ---
EXAMINATION: MM SCREENING DIGITAL BREAST TOMOSYNTHESIS, BILATERAL CLINICAL INFORMATION: Screening. Asymptomatic. Family history breast cancer, mother. The lifetime risk of breast cancer based on the Tyrer-Cuzick Model is 19.5%. COMPARISON: Mammography: 06/07/2017, 03/27/2016, 03/05/2015 TECHNIQUE: Digital breast tomosynthesis is performed in both the craniocaudal and mediolateral oblique views along with computer-aided detection (CAD). Synthesized 2D images are generated from the tomosynthesis. FINDINGS: There are scattered areas of fibroglandular density (ACR BI-RADS breast composition Category b). There are no significant masses, abnormal calcifications, or other abnormalities. There are scattered bilateral benign round and rim calcifications. There is digital processing artifact retroareolar right synthesized MLO view. The axilla and skin contours are unremarkable. MM/MM tomosynthesis screening BI IMPRESSION: No mammographic evidence of malignancy. ASSESSMENT: BI-RADS 2: Benign RECOMMENDATION: Routine annual mammography screening. This patient's information was entered into a reminder system with a target due date for their next mammogram.
== END 2021-01-08 12:33 | disposition home or self-care (01) ==
LOC: HO.MAMMO 12:32
PROVIDERS: PCP Internal Medicine Geriatric Medicine; Visit Provider Internal Medicine Geriatric Medicine
DX: Z12.31 Encounter for screening mammogram for malignant neoplasm of breast (principal)
CPT/HCPCS: 77063; 77067

== ENCOUNTER 2021-01-14 16:16 | Outpatient (REF) | payer MEDICARE, MEDICAID, SELFPAY ==
--- NOTE | ~2021-01-14 | US_ITS ---
EXAMINATION: US SOFT TISSUE NECK CLINICAL INFORMATION: History of malignant neoplasm of thyroid gland. Thyroidectomy 10 years ago. COMPARISON: None TECHNIQUE: Ultrasound of the neck soft tissues is performed with high- frequency jain-scale imaging and color Doppler. Images were acquired at levels I through V of each neck. FINDINGS: Lymph nodes of normal size, morphology and echotexture are detected within the right and left neck. No lymphadenopathy. Within the right neck, the largest lymph nodes are 0.4 cm short axis dimension at level 1B and level 5B In the left neck, one of the largest lymph nodes is 0.3 cm short axis dimension at level 5B. No soft tissue mass or fluid collection. US/US soft tiss head and/or neck IMPRESSION: Normal lymph nodes are seen within the neck in this patient who has previously undergone thyroidectomy. There is no sonographic evidence of lymphadenopathy.
== END 2021-01-14 16:17 | disposition home or self-care (01) ==
LOC: HO.US 16:16
PROVIDERS: Visit Provider Internal Medicine
DX: Z85.850 Personal history of malignant neoplasm of thyroid (principal)
CPT/HCPCS: 76536

== ENCOUNTER 2021-01-27 11:55 | Outpatient (REF) | payer MEDICARE, MEDICAID, SELFPAY ==
[2021-01-27 13:21] LABS: Blood Urea Nitrogen 13 mg/dL (9-16); Estimated Glomerular Filt Rate > 60
== END 2021-01-27 11:56 | disposition home or self-care (01) ==
LOC: HO.LAB 11:55
PROVIDERS: PCP Internal Medicine Geriatric Medicine; Visit Provider Psychiatry & Neurology Neurology
DX: G40.909 Epilepsy, unspecified, not intractable, without status epilepticus (principal)
CPT/HCPCS: 36415; 82565; 84520

== ENCOUNTER 2021-02-26 13:23 | Outpatient (REF) | payer MEDICARE, MEDICAID, SELFPAY ==
--- NOTE | ~2021-02-26 | MR_ITS ---
EXAMINATION: MR BRAIN WITHOUT AND WITH CONTRAST CLINICAL INFORMATION: Seizures COMPARISON: Soft tissue ultrasound neck 01/14/2021. TECHNIQUE: Multiplanar, multisequence MRI of the brain was obtained before and after the intravenous administration of 10 mL Gadavist. No intracranial hemorrhage, tumors or infarcts are noted. The ventricles and sulci are normal in size and configuration. Susceptibility weighted images reveal no evidence of acute or chronic hemorrhage. The craniocervical junction cerebellar tonsils are normal in appearance. Convex inward configuration of the superior margin of the pituitary is present. Mild qualitative diffuse ectasia of the optic nerve sheaths is noted. No gross flattening of the optic nerve heads is noted. No prominence of Meckel's caves is noted. Hyperostosis frontalis interna is incidentally visualized. No suspicious marrow abnormalities. Coronal seizure protocol images demonstrate no abnormalities of the hippocampal formations. Normal flow-related signal intensity is identified in the major intracranial vessels and dural sinuses. No abnormal enhancement the brain parenchyma. MR/MR head/brain wo/w con IMPRESSION: -Borderline findings mildly suspicious for intracranial hypertension including convex inward configuration of the superior margin of the pituitary and mild diffuse optic nerve sheath ectasia. These are borderline findings which in the correct clinical setting could correlate with idiopathic intracranial hypertension (pseudotumor cerebri); otherwise, normal unenhanced and IV contrast-enhanced seizure protocol MRI of the brain.
== END 2021-02-26 13:24 | disposition home or self-care (01) ==
LOC: HO.MRI 13:23
PROVIDERS: Visit Provider Psychiatry & Neurology Neurology
DX: G40.909 Epilepsy, unspecified, not intractable, without status epilepticus (principal)
CPT/HCPCS: 70553; A9585

== ENCOUNTER → 2021-04-23 11:51 | Outpatient (BNVA) | payer MEDICARE, MEDICAID, SELFPAY | PROVIDERS: PCP Internal Medicine Geriatric Medicine; Visit Provider Internal Medicine | DX: E03.9 Hypothyroidism, unspecified (principal); Z85.850 Personal history of malignant neoplasm of thyroid | CPT/HCPCS: Q3014 ==

== ENCOUNTER 2021-07-14 11:12 | Outpatient (REF) | payer MEDICARE, MEDICAID, SELFPAY ==
--- NOTE | ~2021-07-14 | CT_ITS ---
EXAMINATION: CT HEAD WITHOUT CONTRAST CLINICAL INFORMATION: Conversions intermittent symptoms for months. COMPARISON: None TECHNIQUE: Contiguous axial imaging was performed from the skull base to vertex without intravenous administration of contrast. This CT examination was performed using dose optimization techniques as appropriate, variously including the following: *Automated exposure control *Adjustment of mA and/or kV according to patient size (this includes techniques or standardized protocols for targeted exams where dose is matched to indication/reason for exam; i.e. extremities or head) *Use of iterative reconstruction technique DLP: 759 mGy-cm FINDINGS: There is no evidence of acute intracranial hemorrhage or territorial infarction. No abnormal mass effect or midline shift is seen. Vargas to white matter differentiation is well preserved. No extra-axial fluid collections are identified. The ventricles are normal in size. There is no abnormal attenuation within the brain parenchyma. The osseous structures and soft tissues are normal. The mastoid air cells and visualized portions of the paranasal sinuses are well aerated. CT/CT head/brain wo con IMPRESSION: No acute intracranial process seen.
== END 2021-07-14 11:13 | disposition home or self-care (01) ==
LOC: HO.CT 11:12
PROVIDERS: Visit Provider Internal Medicine Geriatric Medicine
DX: R56.9 Unspecified convulsions (principal)
CPT/HCPCS: 70450

== ENCOUNTER → 2021-08-08 14:03 | Outpatient (BNVA) | payer MEDICARE, MEDICAID, SELFPAY | PROVIDERS: PCP Internal Medicine Geriatric Medicine | DX: N20.0 Calculus of kidney (principal); Z87.442 Personal history of urinary calculi | CPT/HCPCS: 99202 ==

== ENCOUNTER 2021-09-18 15:18 | Outpatient (REF) | payer MEDICARE, MEDICAID, SELFPAY ==
--- NOTE | ~2021-09-18 | XR_ITS ---
EXAMINATION: XR HIP, LEFT CLINICAL INFORMATION: Pain. COMPARISON: None TECHNIQUE: AP view of the left hip. FINDINGS: Bones and soft tissues are normal. No fracture. Alignment is anatomic. Hip joint space is maintained. XR/XR hip LT min 2V IMPRESSION: Normal left hip. EXAMINATION: XR KNEE, LEFT CLINICAL INFORMATION: Pain. COMPARISON: Radiographs dated 12/05/2015. TECHNIQUE: AP, lateral, tunnel, and sunrise views of the left knee. FINDINGS: Bony alignment and mineralization are normal. The lateral and medial joint space compartments are well-maintained. The patellofemoral compartment shows mild lateral narrowing and mild peripheral osteophyte formation. There is no fracture, dislocation or joint effusion. There are degenerative calcifications within the prepatellar soft tissues. No foreign body is seen. IMPRESSION: 1. No fracture, dislocation or joint effusion is seen. 2. 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
--- NOTE | ~2021-09-18 | XR_ITS ---
EXAMINATION: XR HIP, LEFT CLINICAL INFORMATION: Pain. COMPARISON: None TECHNIQUE: AP view of the left hip. FINDINGS: Bones and soft tissues are normal. No fracture. Alignment is anatomic. Hip joint space is maintained. XR/XR knee LT 4V IMPRESSION: Normal left hip. EXAMINATION: XR KNEE, LEFT CLINICAL INFORMATION: Pain. COMPARISON: Radiographs dated 12/05/2015. TECHNIQUE: AP, lateral, tunnel, and sunrise views of the left knee. FINDINGS: Bony alignment and mineralization are normal. The lateral and medial joint space compartments are well-maintained. The patellofemoral compartment shows mild lateral narrowing and mild peripheral osteophyte formation. There is no fracture, dislocation or joint effusion. There are degenerative calcifications within the prepatellar soft tissues. No foreign body is seen. IMPRESSION: 1. No fracture, dislocation or joint effusion is seen. 2. 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
--- NOTE | ~2021-09-18 | US_ITS ---
EXAMINATION: US RETROPERITONEAL LIMITED (RENAL ONLY) CLINICAL INFORMATION: Calculus of kidney. COMPARISON: CT abdomen and pelvis 10/11/2020. TECHNIQUE: Real-time imaging of the kidneys. FINDINGS: RIGHT KIDNEY: 12.0 x 4.4 x 5.5 cm (SAG x AP x TRV). The kidney is normal in size, contour, and echogenicity. Renal cortical thickness is normal. No renal stone is appreciated by ultrasound. There is a 3.5 x 4 cm simple cyst in the lower pole. There is a 1.3 1.2 x 2.3 cm echogenic lesion in the lower pole suggestive of an angiomyolipoma. There is a extrarenal pelvis. No renal calculi or hydronephrosis. LEFT KIDNEY: 12.4 x 5.6 x 5.3 cm (SAG x AP x TRV). The kidney is normal in size, contour, and echogenicity. Renal cortical thickness is normal. No calculi or focal parenchymal lesions. No hydronephrosis. US/US renal BI IMPRESSION: No renal stone seen. Right renal cyst and echogenic renal mass suggestive of a benign angiomyolipoma.
== END 2021-09-18 15:19 | disposition home or self-care (01) ==
LOC: HO.US 15:18
DX: N20.0 Calculus of kidney (principal); M25.561 Pain in right knee; M25.552 Pain in left hip
CPT/HCPCS: 73502; 73564; 76775

== ENCOUNTER 2021-10-01 11:37 | Outpatient (REF) | payer MEDICARE, MEDICAID, SELFPAY ==
[2021-10-01 14:00] LABS: MANUAL DIFF FLAG NO
[2021-10-01 14:18] LABS: Estimated Average Glucose 114 mg/dL; Hemoglobin A1c % 5.6 %
[2021-10-01 14:26] LABS: Basophils Percent Auto 0.6 % (0-2); Eosinophils Absolute Auto 0.1 X10*3/uL (0.0-0.4); Eosinophils Percent Auto 1.3 % (0-4); Hematocrit 38.1 % (37.0-47.0); Hemoglobin 12.5 g/dl (12.0-16.0); Imm Gran Abs Auto 0.01 X10*3/uL (0.00-0.03); Imm Gran Pct Auto 0.2 % (0.0-0.4); Lymphocytes Absolute Auto 1.9 X10*3/uL (1.2-4.9); Lymphocytes Percent Auto 35.6 % (20-40); Mean Corpuscular HGB Conc 32.8 g/dl (31.0-35.0); Mean Corpuscular Hemoglobin 28.9 pg (27.0-33.0); Mean Platelet Volume 12.5 fL (9.4-12.3); Monocytes Absolute Auto 0.4 X10*3/uL (0.1-1.2); Monocytes Percent Auto 7.9 % (2-11); Neutrophils Percent Auto 54.4 % (45-73); Platelet Count 277 X10*3/uL (160-400); Red Blood Count 4.33 X10*6/uL (4.20-5.50); Red Cell Distribution Width 14.1 % (11.0-16.0); White Blood Count 5.4 X10*3/uL (4.8-10.8)
[2021-10-01 14:29] LABS: Alanine Aminotransferase 23 U/L (0-31); Alkaline Phosphatase 62 U/L (39-117); Anion Gap 13 (12-20); Aspartate Amino Transferase 24 U/L (5-31); Bilirubin Total 0.2 mg/dL (0.0-1.0); Blood Urea Nitrogen 13 mg/dL (9-16); Carbon Dioxide 22 mmol/L (22-29); Chloride 108 mmol/L (96-108); Cholesterol 245 mg/dL; Estimated Glomerular Filt Rate > 60; Glucose Random 99 mg/dL (60-115); HDL Cholesterol 44 mg/dL; LDL Cholesterol Calculated 164 mg/dl; Potassium 4.4 mmol/L (3.3-5.1); Sodium 139 mmol/L (135-145); Total Protein 6.7 g/dL (6.5-8.0); Triglycerides 189 mg/dL
[2021-10-01 14:53] LABS: TSH reflex Free T4 0.07 uIU/mL (0.32-4.0)
[2021-10-01 15:26] LABS: Free T4 (Free Thyroxine) 1.25 ng/dL (0.71-1.85)
== END 2021-10-01 11:38 | disposition home or self-care (01) ==
LOC: HO.HMGCLDS 11:37
PROVIDERS: PCP Internal Medicine Geriatric Medicine; Visit Provider Internal Medicine Geriatric Medicine
DX: Z13.1 Encounter for screening for diabetes mellitus (principal); Z13.220 Encounter for screening for lipoid disorders; E03.9 Hypothyroidism, unspecified
CPT/HCPCS: 36415; 80053; 80061; 83036; 84439; 84443; 85025

== ENCOUNTER 2022-01-20 15:10 | Outpatient (REF) | payer MEDICARE, MEDICAID, SELFPAY ==
--- NOTE | ~2022-01-20 | MM_ITS ---
EXAMINATION: BONE DENSITOMETRY CLINICAL INDICATION: Unspecified menopausal and perimenopausal disorder. COMPARISON: None (current study represents initial baseline exam). TECHNIQUE: Using a Contractually DXA System (software version: 13.1) manufactured by [employer], dual-energy x-ray absorptiometry was performed of the lumbar spine and left hip. The images are of good technical quality. Summary results are attached. FINDINGS: AP SPINE L2-L3 (excluding L1 and L4): The data of L1-L4 has been changed to exclude the L3 and L4 vertebral bodies because mild degenerative changes at these levels may cause overestimation of the lumbar spine density. BMD 0.816 g/cm2, Z-score minus 3.1, T-score -3.2, osteoporosis. LEFT FEMUR, NECK: BMD 0.920 g/cm2, Z-score -0.3, T-score -0.9, normal. LEFT FEMUR, TOTAL: BMD 1.013 g/cm2, Z-score 0.2, T-score 0.0, normal. IDENTIFIED RISK FACTORS: History of adult fracture. Rheumatoid arthritis. Osteoporosis. Height loss. Low calcium intake. Secondary osteoporosis (hyperthyroidism, intestinal or bowel disease, part of stomach removed). Menopause. HISTORY OF FRACTURE: Lower leg. MEDICATIONS: Calcium supplement and/or multivitamin. Vitamin D. MM/XR DEXA axial skeleton IMPRESSION: 1. DIAGNOSIS: Osteoporosis based on the lowest T-score value of -3.2 in the lumbar spine applying World Health Organization criteria. 2. 10-YEAR FRACTURE RISK PREDICTION, FRAX: According to the guidelines, FRAX calculation should only be performed on patients in the osteopenia bone density category.?Therefore, FRAX was not performed on this patient.? 3. Treatment Recommendations: NOF guidelines recommend consideration for treatment in postmenopausal women and men age 50 and older presenting with the following: -A hip or vertebral (clinical or morphometric) fracture. -T-score less than or equal to -2.5 at the femoral neck or spine after appropriate evaluation to exclude secondary causes. -Low bone mass at the hip or spine and a 10-year fracture probability by FRAX of greater than or equal to 3% for hip fracture or greater than or equal to 20% for major osteoporotic fracture based on the [place] adapted WHO algorithm. 4. Other Recommendations: All treatment decisions require clinical judgment and consideration of individual patient factors, including patient preferences, comorbidities, previous drug use, risk factors not captured in the FRAX model (e.g. frailty, falls, vitamin D deficiency, increased bone turnover, interval significant decline in bone density) and possible under or overestimation of fracture risk by FRAX. Additional medical evaluation for secondary cause of low bone mineral density may be appropriate. FUTURE SCAN RECOMMENDATION: People with diagnosed cases of osteoporosis or at high risk for fracture should have regular bone mineral density tests. For patients eligible for Medicare, routine testing is allowed once every 2 years. The testing frequency can be increased to one year for patients who have rapidly progressing disease, those who are receiving or discontinuing medical therapy to restore bone mass, or have additional risk factors.
--- NOTE | ~2022-01-20 | MM_ITS ---
EXAMINATION: MM SCREENING DIGITAL BREAST TOMOSYNTHESIS, BILATERAL CLINICAL INFORMATION: Screening. Asymptomatic. The lifetime risk of breast cancer based on the Tyrer-Cuzick Model is 16%. COMPARISON: Mammography: 01/08/2021, 06/07/2017, 03/27/2016 TECHNIQUE: Digital breast tomosynthesis is performed in both the craniocaudal and mediolateral oblique views along with computer-aided detection (CAD). Synthesized 2D images are generated from the tomosynthesis. FINDINGS: There are scattered areas of fibroglandular density (ACR BI-RADS breast composition Category b). There are no significant masses, abnormal calcifications, or other abnormalities. Parenchymal pattern is similar to prior studies. No developing density. There are scattered bilateral benign round and rim calcifications. The axilla and skin contours are unremarkable. No significant changes. MM/MM tomosynthesis screening BI IMPRESSION: No mammographic evidence of malignancy. ASSESSMENT: BI-RADS 2: Benign RECOMMENDATION: Routine annual mammography screening. This patient's information was entered into a reminder system with a target due date for their next mammogram.
== END 2022-01-20 15:11 | disposition home or self-care (01) ==
LOC: HO.MAMMO 15:10
PROVIDERS: Visit Provider Internal Medicine Geriatric Medicine
DX: Z12.31 Encounter for screening mammogram for malignant neoplasm of breast (principal); Z13.820 Encounter for screening for osteoporosis; Z78.0 Asymptomatic menopausal state
CPT/HCPCS: 77063; 77067; 77080

== ENCOUNTER → 2022-03-31 11:26 | Outpatient (BNVA) | payer MEDICARE, MEDICAID, SELFPAY | PROVIDERS: PCP Internal Medicine Geriatric Medicine; Visit Provider Obstetrics & Gynecology | DX: D25.9 Leiomyoma of uterus, unspecified (principal); N83.209 Unspecified ovarian cyst, unspecified side | CPT/HCPCS: 99202 ==

== ENCOUNTER 2022-05-04 13:28 | Outpatient (REF) | payer MEDICARE, MEDICAID, SELFPAY ==
[2022-05-04 15:29] LABS: Alanine Aminotransferase 28 U/L (0-31); Albumin Level 4.2 g/dL (3.5-5.0); Alkaline Phosphatase 61 U/L (39-117); Anion Gap 13 (12-20); Aspartate Amino Transferase 26 U/L (5-31); Bilirubin Total 0.3 mg/dL (0.0-1.0); Blood Urea Nitrogen 15 mg/dL (9-16); Carbon Dioxide 24 mmol/L (22-29); Chloride 106 mmol/L (96-108); Estimated Glomerular Filt Rate > 60; Glucose Random 90 mg/dL (60-115); Potassium 4.8 mmol/L (3.3-5.1); Sodium 138 mmol/L (135-145); Total Protein 6.8 g/dL (6.5-8.0)
[2022-05-04 15:47] LABS: Free T4 (Free Thyroxine) 1.14 ng/dL (0.71-1.85); Vitamin D 25-OH Total 25.8 ng/mL (>30)
[2022-05-04 15:59] LABS: Thyroid Stimulating Hormone 3.46 uIU/mL (0.32-4.0)
[2022-05-05 10:08] LABS: Calcium (PTHI) 8.9 mg/dL (8.6-10.4); PTHI 73 pg/mL (16-77)
[2022-05-06 07:54] LABS: Thyroglobulin <0.1 ng/mL; Thyroglobulin Antibodies <1 IU/mL (< or = 1)
[2022-05-07 23:09] LABS: Alkaline Phosphatase Bone 11.6 mcg/L (5.6-29.0)
[2022-05-07 23:42] LABS: Prot Elec - Albumin 4.2 g/dL (3.8-4.8); Prot Elec - Alpha1 0.3 g/dL (0.2-0.3); Prot Elec - Alpha2 0.8 g/dL (0.5-0.9); Prot Elec - Beta 1 0.6 g/dL (0.4-0.6); Prot Elec - Beta 2 0.3 g/dL (0.2-0.5); Prot Elec - Gamma 0.8 g/dL (0.8-1.7)
[2022-05-10 17:39] LABS: N-Telopeptide 50 (see note); NTXCreaRU 114 mg/dL (20-275)
== END 2022-05-04 13:29 | disposition home or self-care (01) ==
LOC: HO.LAB 13:28
PROVIDERS: PCP Internal Medicine Geriatric Medicine; Visit Provider Internal Medicine
DX: M81.0 Age-related osteoporosis without current pathological fracture (principal); E55.9 Vitamin D deficiency, unspecified; E03.9 Hypothyroidism, unspecified; Z79.899 Other long term (current) drug therapy; Z85.850 Personal history of malignant neoplasm of thyroid
CPT/HCPCS: 36415; 80053; 82306; 82523; 83970; 84075; 84100; 84165; 84432; 84439; 84443; 86800; 99212

== ENCOUNTER 2022-05-07 14:41 | Outpatient (REF) | payer MEDICARE, MEDICAID, SELFPAY ==
[2022-05-07 15:22] LABS: Creatinine, mg/dL 107.29
[2022-05-07 17:44] LABS: Creatinine, 24Hr Urine 1.2 G/Day (1.0-2.0); Total Volume 24 Hour Urine 1125 mL
[2022-05-09 20:39] LABS: Calcium, 24 Hr Urine 224 mg/24 h; Calcium/Creatinine Ratio 195 mg/g creat (30-275); Creatinine 24Hr Urine 1.15 g/24 h (0.50-2.15)
== END 2022-05-07 14:42 | disposition home or self-care (01) ==
LOC: HO.LNP 14:41
PROVIDERS: Visit Provider Internal Medicine
DX: M81.0 Age-related osteoporosis without current pathological fracture (principal)
CPT/HCPCS: 82340; 82570

== ENCOUNTER 2022-06-09 15:55 | Outpatient (REF) | payer MEDICARE, MEDICAID, SELFPAY ==
--- NOTE | ~2022-06-09 | US_ITS ---
EXAMINATION: US PELVIS CLINICAL INFORMATION: Ovarian cyst. COMPARISON: CT abdomen and pelvis 10/11/2020, pelvic ultrasound 01/16/2022. TECHNIQUE: Ultrasound of the pelvis is performed using both transabdominal and transvaginal transducers along with Doppler. Transvaginal imaging is performed due to inadequate visualization transabdominally. FINDINGS: Uterus: The uterus is anteverted and measures 9.2 x 5.4 x 5.0 cm. Again seen is a right-sided uterine body fibroid decreased in size compared to prior, currently measuring 3.2 x 2.6 x 3.7 cm. The double wall endometrial thickness now measures 0.7 mm, increased from 0.6 previously. A nabothian cyst is present in the cervix. Adnexa: The right ovary has been removed and is not visualized. The left ovary measures 3.1 x 2.4 x 2.8 cm for a volume of 10.8 mL which includes a 2.0 x 1.4 x 1.7 cm simple cyst, previously slightly larger measuring 2.2 x 1.7 x 1.7 cm. US/US pelvic and transvaginal IMPRESSION: Endometrial thickness has further increased and there are some calcifications seen in the endometrial canal. The uterine fibroid has decreased in size slightly as has the left ovarian cyst.
== END 2022-06-09 15:56 | disposition home or self-care (01) ==
LOC: HO.US 15:55
PROVIDERS: PCP Internal Medicine Geriatric Medicine; Visit Provider Internal Medicine Geriatric Medicine
DX: R10.2 Pelvic and perineal pain (principal); N83.209 Unspecified ovarian cyst, unspecified side
CPT/HCPCS: 76830; 76856

== ENCOUNTER 2022-09-29 11:10 | Outpatient (REF) | payer MEDICARE, MEDICAID, SELFPAY ==
--- NOTE | ~2022-09-29 | US_ITS ---
EXAMINATION: US PELVIS COMPLETE CLINICAL INFORMATION: Ovarian cyst; history of right oophorectomy; postmenopausal patient. COMPARISON: Pelvic ultrasound dated 06/11/2022. TECHNIQUE: Transabdominal and transvaginal imaging were performed. FINDINGS: The uterus is of normal size and echogenicity, measuring 6.9 x 3.2 x 4.7 cm. The uterus is anteverted. A regular, homogeneous endometrium is identified measuring 1.0 cm. Simple and complex nabothian cysts are seen. FIBROIDS: There is 1 fibroid seen. 1. Location: Rightward fundus. Size: 3.2 x 3.1 x 3.4 cm. Prior: 3.2 x 2.6 x 2.7 cm. Fibroid characteristics: Heterogeneous echotexture. The right ovary is surgically absent. The left ovary measures 2.4 x 1.8 x 2.0 cm for a volume of 4.5 mL. The left ovary contains a 2.1 x 1.5 x 1.9 cm cyst with fine septations. This shows no mural nodularity or associated color Doppler flow. There is no pelvic free fluid. No adnexal masses seen. US/US pelvic and transvaginal IMPRESSION: 1. A uterine fibroid is seen, as detailed. 2. Nabothian cysts are seen within the cervix. 3. The right ovary is nonvisualized. 4. A mildly complex, indeterminate left ovarian cyst is seen with multiple fine septations. Multiple septations suggest the possibility of a benign neoplasm. Gynecology evaluation and management are recommended.
[2022-09-29 13:06] LABS: Alanine Aminotransferase 19 U/L (0-31); Albumin Level 4.1 g/dL (3.5-5.0); Alkaline Phosphatase 74 U/L (39-117); Anion Gap 12 (12-20); Aspartate Amino Transferase 20 U/L (5-31); Bilirubin Total 0.3 mg/dL (0.0-1.0); Blood Urea Nitrogen 12 mg/dL (9-16); Calcium 9.3 mg/dL (8.4-10.2); Carbon Dioxide 25 mmol/L (22-29); Chloride 106 mmol/L (96-108); Estimated Glomerular Filt Rate > 60; Glucose Random 79 mg/dL (60-115); Phosphorus 2.5 mg/dL (2.7-4.5); Potassium 4.7 mmol/L (3.3-5.1); Sodium 138 mmol/L (135-145); Total Protein 6.8 g/dL (6.5-8.0)
[2022-09-29 13:23] LABS: Free T4 (Free Thyroxine) 1.04 ng/dL (0.71-1.85); Thyroid Stimulating Hormone 3.07 uIU/mL (0.32-4.0); Vitamin D 25-OH Total 32.2 ng/mL (>30)
[2022-09-30 13:04] LABS: PTHI 66 pg/mL (16-77)
[2022-10-02 20:43] LABS: Thyroglobulin Antibody <1 IU/mL (<=1); Thyroglobulin Level <0.1 ng/mL
== END 2022-09-29 11:11 | disposition home or self-care (01) ==
LOC: HO.US 11:10
PROVIDERS: Internal Medicine; PCP Internal Medicine Geriatric Medicine; Visit Provider Obstetrics & Gynecology
DX: N83.209 Unspecified ovarian cyst, unspecified side (principal); D25.9 Leiomyoma of uterus, unspecified; E55.9 Vitamin D deficiency, unspecified; M81.0 Age-related osteoporosis without current pathological fracture; Z85.850 Personal history of malignant neoplasm of thyroid
CPT/HCPCS: 36415; 76830; 76856; 80053; 82306; 83970; 84100; 84432; 84439; 84443; 86800

== ENCOUNTER → 2022-10-08 13:03 | Outpatient (BNVA) | payer MEDICARE, MEDICAID, SELFPAY | PROVIDERS: PCP Internal Medicine Geriatric Medicine; Visit Provider Obstetrics & Gynecology | DX: N83.299 Other ovarian cyst, unspecified side (principal); D25.9 Leiomyoma of uterus, unspecified | CPT/HCPCS: 99212 ==

== ENCOUNTER 2022-10-19 09:04 | Outpatient (REF) | payer MEDICARE, MEDICAID, SELFPAY ==
[2022-10-31 10:43] LABS: NTXCreaRU 96
[2022-10-31 10:44] LABS: N-Telopeptide 63
== END 2022-10-19 09:05 | disposition home or self-care (01) ==
LOC: HO.LNP 09:04
PROVIDERS: Visit Provider Internal Medicine
DX: M81.0 Age-related osteoporosis without current pathological fracture (principal)
CPT/HCPCS: 82523

== ENCOUNTER 2022-11-12 08:06 | Outpatient (AMB) | payer MEDICARE, MEDICAID, SELFPAY ==
--- NOTE | 2022-11-12 08:06 | MHC.OFFVIS ---
Intake Intake Visit Reasons: thyroid cancer/osteoporosis Intake Note: Thyroid cancer/ Osteoporosis follow up visit. Allergies pravastatin Allergy (Unknown, Verified 11/12/22 08:37) Unknown. Sulfa (Sulfonamide Antibiotics) Allergy (Unknown, Verified 11/12/22 08:37) Unknown. Medication List - Last Reconciled 11/12/22 by Tracie Quiroga, albuterol sulfate 90 mcg/actuation 2 puffs PO Q4-6H PRN buspirone 30 mg PO BID carisoprodol 350 mg PO QID diclofenac sodium 1% grams topical BID PRN ezetimibe 10 mg PO DAILY levothyroxine 125 mcg PO DAILY 30 days omeprazole 40 mg PO BID ondansetron 4 mg PO Q8H PRN oxcarbazepine 150 mg PO BID tramadol 50 mg PO TID PRN venlafaxine ER 75 mg PO BEDTIME venlafaxine ER 150 mg PO BEDTIME zolpidem 10 mg PO BEDTIME PRN HPI HPI Comments History of Present Illness Details 62 YO Female with a PMHx of thyroid cancer s/p total thyroidectomy who is seen in F/U for a history of thyroid cancer and Osteoporosis. 1) History of thyroid cancer: She reports being diagnosed with thyroid cancer in 2011. She had a total thyroidectomy by Dr. Day in 2011 and subsequent I131 and followed with [facility] Endocrinology until 2018, but then was lost to F/U. Per [facility] documentation she was found to have PTC 1.3 cm, with multiple microscopic foci in the adjacent lobe. It is unclear what dose of I131 she was treated with. She remains on Levothyroxine 125 mcg PO daily. She takes this correctly. TG remains undetectable. She had an US head and neck which reveals no evidence of abnormal lymph nodes. 2) Osteoporosis: First diagnosed in 2014. She has never been treated in the past. Has 0-1 servings of dietary calcium per day. Takes 2 Tums per day which contains Calcium. Takes 1000 IU of Vitamin D daily. Denies ever using anticoagulant, antiepileptic or regular glucocorticoid medication. Currently does not exercise. Fracture history: Traumatic fracture of her L leg in 2014. 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 Menses always regular. . Breastfed for less than 6 months total. Menopause age 50, was induced by Lupron. Has a history of recurrent nephrolithiasis but is unsure what type of stones. Reports a family history of Osteoporosis but no hip fracture. UTD on dental cleanings and sees dentist every 6 months. No planned upcoming dental work or extractions. DXA: 01/20/2022 FINDINGS: AP SPINE L2-L3 (excluding L1 and L4):? The data of L1-L4 has been changed to exclude the L3 and L4 vertebral bodies because mild degenerative changes at these levels may cause overestimation of the lumbar spine density.? BMD 0.816 g/cm2, Z-score minus 3.1, T-score -3.2, osteoporosis. LEFT FEMUR, NECK: BMD 0.920 g/cm2, Z-score -0.3, T-score -0.9, normal. LEFT FEMUR, TOTAL: BMD 1.013 g/cm2, Z-score 0.2, T-score 0.0, normal. US Head and Neck: 01/14/2021 FINDINGS: Lymph nodes of normal size, morphology and echotexture are detected within the right and left neck. No lymphadenopathy. Within the right neck, the largest lymph nodes are 0.4 cm short axis dimension at level 1B and level 5B In the left neck, one of the largest lymph nodes is 0.3 cm short axis dimension at level 5B. No soft tissue mass or fluid collection. IMPRESSION: Normal lymph nodes are seen within the neck in this patient who has previously undergone thyroidectomy. There is no sonographic evidence of lymphadenopathy. Labs: Laboratory Tests 05/04/22 09/29/22 09/29/22 14:30 12:05 12:05 Creatinine 0.68 Estimated GFR > 60 Calcium 9.3 Phosphorus 2.5 L Albumin 4.1 PEP Interpretation SEE NOTE N-Telopeptide X-li nked 25-OH Vitamin D To julia 32.2 TSH 3.07 Free T4 1.04 Thyroglobulin PTH Intact 66 Calcium (PTH Intac t) 9.0 Thyroglobulin Anti body 09/29/22 10/19/22 12:05 09:04 Creatinine Estimated GFR Calcium Phosphorus Albumin PEP Interpretation N-Telopeptide X-li nked 63 25-OH Vitamin D To julia TSH Free T4 Thyroglobulin <0.1 PTH Intact Calcium (PTH Intac t) Thyroglobulin Anti body <1 PFSH Medical History Anxiety and depression Asthma C. difficile colitis Chronic back pain Diarrhea Hernia History of thyroid cancer Hypothyroidism Insomnia Osteoarthritis Osteoporosis Renal calculi Vitamin D deficiency Surgical History Gastric bypass status for obesity H/O thyroidectomy H/O tubal ligation History of appendectomy Family History Mother Graves disease Social History Household Members: Spouse Housing: House Do you presently have visiting nurse or other home services: No Patient Tobacco Use Status: Former Tobacco user Quit Date: october 2005 Cigarettes Per Day: 2 Years Smoked: 10 years service: No Current occupational status: unemployed Female Reproductive History Menstrual Age of Menarche: 14 Assessment & Plan Assessment & Plan (1) Osteoporosis: Code(s): M81.0 - Age-related osteoporosis without current pathological fracture Plan: Patient with Osteoporosis of the spine. Workup for secondary causes of Osteoporosis is negative. Suspect her osteoporosis is related to her postmenopausal status. Plan for now is to start Fosamax 70 mg PO once a week. We reviewed proper dosing instructions with reminaing upright for 30 minutes after taking. We discussed potential ADRs of flu like symptoms with body aches, osteonecrosis of the jaw and atypical fracture. All questions were answered. We did review fall precaution today. All questions were answered. She is in agreement with this plan of care. She will F/U in 6 months time. I spent 20 minutes in reviewing the record, seeing the patient and documenting in the medical record, including 5 minutes on the phone with the Patient. (2) History of thyroid cancer: Code(s): Z85.850 - Personal history of malignant neoplasm of thyroid Plan: Patient with a history of thyroid cancer. It appears this was considered low risk for recurrence. She did receive I131 treatment postoperatively, but the dose is unclear per the records. She has had an excellent response to treatment. TSH slightly above goal of 0.5-2.0. Will increase levothyroxine to 137 mcg PO daily and repeat labs in 6 weeks time. (3) Hypothyroidism: Code(s): E03.9 - Hypothyroidism, unspecified Plan: Patient with postoperative hypothyroidism. Management as per above. Orders: Orders Free T4 (Free Thyroxine) 6 Weeks E03.9 - Hypothyroidism, unspecified Thyroid Stimulating Hormone 6 Weeks E03.9 - Hypothyroidism, unspecified Comprehensive Met. Panel 6 Months M81.0 - Age-related osteoporosis without current pathological fracture Phosphorus 6 Months M81.0 - Age-related osteoporosis without current pathological fracture PTHI 6 Months M81.0 - Age-related osteoporosis without current pathological fracture Collagen Crosslinks NTX 6 Months M81.0 - Age-related osteoporosis without current pathological fracture Alkaline Phosphatase Bone 6 Months M81.0 - Age-related osteoporosis without current pathological fracture Thyroid Stimulating Hormone 6 Months E03.9 - Hypothyroidism, unspecified Free T4 (Free Thyroxine) 6 Months E03.9 - Hypothyroidism, unspecified Vitamin D 25-OH Total 6 Months E55.9 - Vitamin D deficiency, unspecified Medications: New levothyroxine 137 mcg PO DAILY 30 days 30 tabs 3RF E03.9 - Hypothyroidism, unspecified alendronate (Fosamax) 70 mg PO QWEEK 4 weeks 4 tabs 6RF M81.0 - Age-related osteoporosis without current pathological fracture Discontinued levothyroxine Discontinued Reason: Doctor's Order 125 mcg PO DAILY 30 days 30 tabs 3RF Telehealth Telehealth Location of provider rendering services: practice address Location of patient: address on file Patient Identification confirmed using: Name, : Yes Telehealth method: voice only Patient verbally consented to treatment: Yes Patient verbally consented to billing insurance company: Yes Patient informed of any privacy concerns related to visit: Yes Coding Level of Care Code Tele Est Pt Level 3 (73443) Diagnoses Osteoporosis M81.0 History of thyroid cancer Z85.850 Hypothyroidism E03.9
== END 2022-11-12 14:05 | disposition home or self-care (01) ==
LOC: HO.ENCR 08:06
PROVIDERS: PCP Internal Medicine Geriatric Medicine; Visit Provider Internal Medicine
DX: M81.0 Age-related osteoporosis without current pathological fracture (principal); Z85.850 Personal history of malignant neoplasm of thyroid; E03.9 Hypothyroidism, unspecified
CPT/HCPCS: 99443

== ENCOUNTER → 2022-11-12 08:06 | Outpatient (BNVA) | payer MEDICARE, MEDICAID, SELFPAY | PROVIDERS: PCP Internal Medicine Geriatric Medicine; Visit Provider Internal Medicine ==

== ENCOUNTER 2023-05-18 11:55 | Outpatient (REF) | payer MEDICARE, MEDICAID, SELFPAY ==
[2023-05-18 15:01] LABS: Alanine Aminotransferase 17 U/L (0-31); Albumin Level 3.9 g/dL (3.5-5.0); Alkaline Phosphatase 46 U/L (39-117); Anion Gap 10 (12-20); Aspartate Amino Transferase 18 U/L (5-31); Bilirubin Total 0.3 mg/dL (0.0-1.0); Blood Urea Nitrogen 14 mg/dL (9-16); Calcium 8.8 mg/dL (8.4-10.2); Carbon Dioxide 26 mmol/L (22-29); Chloride 108 mmol/L (96-108); Estimated Glomerular Filt Rate > 60; Glucose Random 75 mg/dL (60-115); Potassium 4.7 mmol/L (3.3-5.1); Sodium 139 mmol/L (135-145); Total Protein 6.4 g/dL (6.5-8.0)
[2023-05-18 15:02] LABS: Thyroid Stimulating Hormone 0.59 uIU/mL (0.32-4.0)
[2023-05-18 15:04] LABS: Vitamin D 25-OH Total 31.3 ng/mL (>30)
[2023-05-21 20:08] LABS: Alkaline Phosphatase Bone 8.6 mcg/L (5.6-29.0)
== END 2023-05-18 11:56 | disposition home or self-care (01) ==
LOC: HO.LAB 11:55
PROVIDERS: Internal Medicine; PCP Internal Medicine Geriatric Medicine; Visit Provider Internal Medicine Endocrinology, Diabetes & Metabolism
DX: E03.9 Hypothyroidism, unspecified (principal); M81.0 Age-related osteoporosis without current pathological fracture; E55.9 Vitamin D deficiency, unspecified
CPT/HCPCS: 36415; 80053; 82306; 84075; 84100; 84439; 84443; 99212

== ENCOUNTER 2023-05-18 12:34 | Outpatient (AMB) | payer MEDICARE, MEDICAID, SELFPAY ==
--- NOTE | 2023-05-18 13:00 | MHC.OFFVIS ---
Intake Vital Signs 05/18/23 13:04 Height 5 ft 7 in Weight 220 lb 14.451 oz BMI 34.6 BP 108/76 Blood Pressure Location Lt brachial Position Sitting Pulse 80 Pulse Source Pulse Oximeter Intake Visit Reasons: thyroid cancer/osteoporosis-lvm Intake Note: Patient presents today for Thyroid Cancer and Osteoporosis follow up, last seen by Dr. Valdes on 11/12/2022. 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 Sulfa (Sulfonamide Antibiotics) Allergy (Unknown, Verified 05/18/23 13:14) Unknown. Medication List - Last Reconciled 05/18/23 by Oz Perez MD albuterol sulfate 90 mcg/actuation 2 puffs PO Q4-6H PRN buspirone 30 mg PO BID carisoprodol 350 mg PO QID diclofenac sodium 1% grams topical BID PRN ezetimibe 10 mg PO DAILY levothyroxine 137 mcg PO DAILY omeprazole 40 mg PO BID ondansetron 4 mg PO Q8H PRN oxcarbazepine 150 mg PO BID tramadol 50 mg PO TID PRN venlafaxine ER 75 mg PO BEDTIME venlafaxine ER 150 mg PO BEDTIME zolpidem 10 mg PO BEDTIME PRN HPI HPI Comments History of Present Illness Details 63 YO Female with a PMHx of thyroid cancer s/p total thyroidectomy who is seen in F/U for a history of thyroid cancer and Osteoporosis. The patient last saw Dr. Valdes on 11/12/2022 1) History of thyroid cancer: She reports being diagnosed with thyroid cancer in 2011. She had a total thyroidectomy by Dr. Day in 2011 and subsequent I131 and followed with [facility] Endocrinology until 2018, but then was lost to F/U. Per [facility] documentation she was found to have PTC 1.3 cm, with multiple microscopic foci in the adjacent lobe. It is unclear what dose of I131 she was treated with. She remains on Levothyroxine 137 mcg PO daily. She takes this correctly. TG remains undetectable. She had an US head and neck which reveals no evidence of abnormal lymph nodes. 2) Osteoporosis: First diagnosed in 2014. She has never been treated in the past. Has 0-1 servings of dietary calcium per day. Takes 2 Tums per day which contains Calcium. Takes 1000 IU of Vitamin D daily. Denies ever using anticoagulant, antiepileptic or regular glucocorticoid medication. Currently does not exercise. Fracture history: Traumatic fracture of her L leg in 2014. Height loss: 1 inch HEAD OF ETHICS AND COMPLIANCE history: Menarche age 10. Menses always regular. . Breastfed for less than 6 months total. Menopause age 50, was induced by Lupron. Has a history of recurrent nephrolithiasis but is unsure what type of stones. Reports a family history of Osteoporosis but no hip fracture. UTD on dental cleanings and sees dentist every 6 months. No planned upcoming dental work or extractions. DXA: 01/20/2022 FINDINGS: AP SPINE L2-L3 (excluding L1 and L4):? The data of L1-L4 has been changed to exclude the L3 and L4 vertebral bodies because mild degenerative changes at these levels may cause overestimation of the lumbar spine density.? BMD 0.816 g/cm2, Z-score minus 3.1, T-score -3.2, osteoporosis. LEFT FEMUR, NECK: BMD 0.920 g/cm2, Z-score -0.3, T-score -0.9, normal. LEFT FEMUR, TOTAL: BMD 1.013 g/cm2, Z-score 0.2, T-score 0.0, normal. US Head and Neck: 01/14/2021 FINDINGS: Lymph nodes of normal size, morphology and echotexture are detected within the right and left neck. No lymphadenopathy. Within the right neck, the largest lymph nodes are 0.4 cm short axis dimension at level 1B and level 5B In the left neck, one of the largest lymph nodes is 0.3 cm short axis dimension at level 5B. No soft tissue mass or fluid collection. IMPRESSION: Normal lymph nodes are seen within the neck in this patient who has previously undergone thyroidectomy. There is no sonographic evidence of lymphadenopathy. Labs: Laboratory Tests 05/04/22 09/29/22 09/29/22 14:30 12:05 12:05 Creatinine 0.68 Estimated GFR > 60 Calcium 9.3 Phosphorus 2.5 L Albumin 4.1 PEP Interpretation SEE NOTE N-Telopeptide X-li nked 25-OH Vitamin D To julia 32.2 TSH 3.07 Free T4 1.04 Thyroglobulin PTH Intact 66 Calcium (PTH Intac t) 9.0 Thyroglobulin Anti body 09/29/22 10/19/22 12:05 09:04 Creatinine Estimated GFR Calcium Phosphorus Albumin PEP Interpretation N-Telopeptide X-li nked 63 25-OH Vitamin D To julia TSH Free T4 Thyroglobulin <0.1 PTH Intact Calcium (PTH Intac t) Thyroglobulin Anti body <1 Took alendronate but stopped 2 mos ago after taking 3-4 mos because of joint pains , [place] fx in distant past PFSH Medical History Anxiety and depression Asthma C. difficile colitis Chronic back pain Diarrhea Hernia History of thyroid cancer Hypothyroidism Insomnia Osteoarthritis Osteoporosis Renal calculi Vitamin D deficiency Surgical History Gastric bypass status for obesity H/O thyroidectomy H/O tubal ligation History of appendectomy Family History Mother Graves disease Social History Household Members: Spouse Housing: House Do you presently have visiting nurse or other home services: No Patient Tobacco Use Status: Former Tobacco user Quit Date: october 2005 Cigarettes Per Day: 2 Years Smoked: 10 years service: No Current occupational status: unemployed Female Reproductive History Menstrual Age of Menarche: 14 Physical Exam Const Other: Healed scar status post thyroidectomy Assessment & Plan Assessment & Plan (1) History of thyroid cancer: Code(s): Z85.850 - Personal history of malignant neoplasm of thyroid Plan: This is a 63-year-old white female status post total thyroid with PTC 1.3 cm, with multiple microscopic foci in the adjacent lobe. It is unclear what dose of I131 she was treated with. She is currently on levothyroxine 137 mcg. She appears to be clinically euthyroid. Plan is to check TSH, free T4 adjust levothyroxine accordingly. (2) Osteoporosis: Code(s): M81.0 - Age-related osteoporosis without current pathological fracture Plan: History of osteoporosis with negative secondary workup. Currently on calcium and vitamin-D supplementation as well as alendronate 70 mg Q weekly. Urine NTX is suppressed. Plan is to consider anabolic therapy with Evenity or another anabolic therapy if possible followed by anti-resorptive agent . Continue calcium and Vitamin-D supplementation and await 25- vitamin-D level Orders: Orders XR DEXA axial skeleton 8 Months M81.0 - Age-related osteoporosis without current pathological fracture US thyroid Today Z85.850 - Personal history of malignant neoplasm of thyroid Coding Level of Care Code Est Pt Level 3 (48226) Diagnoses History of thyroid cancer Z85.850 Osteoporosis M81.0
[2023-05-18 13:04] VITALS: BP 108/76; PULSE 80; BMI 34.6
== END 2023-05-18 13:48 | disposition home or self-care (01) ==
PROVIDERS: PCP Internal Medicine Geriatric Medicine; Visit Provider Internal Medicine Endocrinology, Diabetes & Metabolism
DX: Z85.850 Personal history of malignant neoplasm of thyroid (principal); M81.0 Age-related osteoporosis without current pathological fracture
CPT/HCPCS: 99213

== ENCOUNTER 2023-05-25 14:01 | Outpatient (REF) | payer MEDICARE, MEDICAID, SELFPAY ==
[2023-05-25 16:31] LABS: Anion Gap 12 (12-20); Blood Urea Nitrogen 14 mg/dL (9-16); Calcium 9.1 mg/dL (8.4-10.2); Carbon Dioxide 24 mmol/L (22-29); Chloride 106 mmol/L (96-108); Estimated Glomerular Filt Rate > 60; Glucose Random 90 mg/dL (60-115); Magnesium 2.2 mg/dL (1.6-2.6); Phosphorus 2.3 mg/dL (2.7-4.5); Sodium 137 mmol/L (135-145)
== END 2023-05-25 14:02 | disposition home or self-care (01) ==
LOC: HO.HHCL 14:01
PROVIDERS: Visit Provider Internal Medicine Geriatric Medicine
DX: E83.39 Other disorders of phosphorus metabolism (principal)
CPT/HCPCS: 36415; 80048; 83735; 84100

== ENCOUNTER 2023-06-16 12:44 | Outpatient (AMB) | payer MEDICARE, MEDICAID, SELFPAY ==
--- NOTE | 2023-06-16 13:20 | AM.OFFVISNUR ---
Intake Intake Visit Reasons: Evenity Injection Allergies pravastatin Allergy (Unknown, Verified 05/18/23 13:14) Unknown. Sulfa (Sulfonamide Antibiotics) Allergy (Unknown, Verified 05/18/23 13:14) Unknown. 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
== END 2023-06-16 13:23 | disposition home or self-care (01) ==
PROVIDERS: PCP Internal Medicine Geriatric Medicine; Visit Provider Internal Medicine Endocrinology, Diabetes & Metabolism
DX: M81.0 Age-related osteoporosis without current pathological fracture (principal)

== ENCOUNTER → 2023-06-16 12:44 | Outpatient (BNVA) | payer MEDICARE, MEDICAID, SELFPAY | PROVIDERS: PCP Internal Medicine Geriatric Medicine; Visit Provider Internal Medicine Endocrinology, Diabetes & Metabolism | DX: M81.0 Age-related osteoporosis without current pathological fracture (principal) | CPT/HCPCS: 96372; J3111 ==

== ENCOUNTER 2023-07-19 13:16 | Outpatient (AMB) | payer MEDICARE, MEDICAID, SELFPAY ==
--- NOTE | 2023-07-19 13:48 | AM.OFFVISNUR ---
Intake Intake Visit Reasons: Evenity Injection Allergies pravastatin Allergy (Unknown, Verified 05/18/23 13:14) Unknown. Sulfa (Sulfonamide Antibiotics) Allergy (Unknown, Verified 05/18/23 13:14) Unknown. 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
== END 2023-07-19 13:36 | disposition home or self-care (01) ==
PROVIDERS: PCP Internal Medicine Geriatric Medicine; Visit Provider Internal Medicine Endocrinology, Diabetes & Metabolism
DX: M81.0 Age-related osteoporosis without current pathological fracture (principal)

== ENCOUNTER → 2023-07-19 13:16 | Outpatient (BNVA) | payer MEDICARE, MEDICAID, SELFPAY | PROVIDERS: PCP Internal Medicine Geriatric Medicine; Visit Provider Internal Medicine Endocrinology, Diabetes & Metabolism | DX: M81.0 Age-related osteoporosis without current pathological fracture (principal) | CPT/HCPCS: 96372; J0897 ==

== ENCOUNTER 2023-07-20 14:34 | Outpatient (AMB) | payer MEDICARE, MEDICAID, SELFPAY ==
[2023-07-20 14:38] VITALS: BP 135/77; PULSE 67; BMI 35.2
--- NOTE | 2023-07-20 14:38 | A.OFFVIS_ITS ---
Intake Vital Signs 07/20/23 14:38 Height 5 ft 7 in Weight 224 lb 13.944 oz BMI 35.2 BP 135/77 Blood Pressure Location Lt brachial Position Sitting Pulse 67 Intake Visit Reasons: Colonoscopy Screening Intake Note: Coleen presents to in office visit as a new patient for colonoscopy screening. CC: Last colonoscopy when PT was about 49 years old at [facility]. Patient reports constipation, rectal bleeding, and diverticulosis. She states that she had many, many, hernia operations , a total reconstruction of abdominal wall, thyroid cancer. She also reports hx of diverticulitis, and C diff 2 years ago. Pt also s/p sleeve gastrectomy, and panniculectomy. Wire Twister Required: No Allergies pravastatin Allergy (Unknown, Verified 07/20/23 14:50) Unknown. Sulfa (Sulfonamide Antibiotics) Allergy (Unknown, Verified 07/20/23 14:50) Unknown. HPI Colonoscopy Screening HPI Details 63 year old? female with past medical hi story of ovarian cyst, renal calculi, hypothyroidism, history of thyroid CA, status post sleeve gastrectomy and panniculectomy is here today for pre colonoscopy screening.? Patient was sent to us by her PCP.? Last colonoscopy was when patient was in her early 50s. Patient was diagnosed with thyroid cancer and was unable to go for the procedure. She is due for 10 year recall. Patient had no polyps, diverticulosis found. Colonoscopy was done at [facility].? History of abdominoplasty and panniculectomy after umbilical and abdominal hernia repairs. History of diverticulitis in the past as well as C diff colitis in 2020. Denies any personal or family history of colon polyps, or cancer.? Denies history of di fficulty with sedation or anesthesia in the past.? Negative for history of sleep apnea.? Denies any history of cardiac, renal, pulmonary, or hepatic disease.?? No history of infectious? diseases like hepatitis A, B, C, HIV or tuberculosis.? Patient is not on any anticoagulation therapy. [facility] Medical History Osteoporosis Renal calculi Vitamin D deficiency History of thyroid cancer Hypothyroidism Chronic back pain Insomnia Diarrhea Osteoarthritis Anxiety and depression C. difficile colitis Asthma Hernia Surgical History H/O tubal ligation History of appendectomy H/O thyroidectomy Gastric bypass status for obesity Family History Mother Graves disease Social History Household Members: Spouse Housing: House Do you presently have visiting nurse or other home services: No Patient Tobacco Use Status: Former Tobacco user Quit Date: october 2005 Cigarettes Per Day: 2 Years Smoked: 10 years service: No Current occupational status: unemployed Female Reproductive History Menstrual Age of Menarche: 14 Review of Systems Const Denies weight gain and Denies weight loss ENT Reports no additional complaints, Denies dysphagia and Denies odynophagia Card Reports no additional complaints Resp Reports no additional complaints GI Denies abdominal pain, Denies belching, Denies melena, Denies bloating, Denies change in bowel habits, Reports constipation, Denies dysphagia, Denies excessive flatus, Denies dyspepsia, Reports heartburn, Denies diarrhea, Denies loose stools, Denies nausea, Denies odynophagia and Denies vomiting Reports no additional complaints Musc Reports no additional complaints Neuro Reports no additional complaints Psych Reports no additional complaints Endo Reports no additional complaints Physical Exam Vital Signs: Last Vital Signs Pulse 67 07/20/23 14:38 BP 135/77 07/20/23 14:38 BMI result Body Mass Index 35.2 Const General: healthy appearing, no acute distress and well developed Nutritional Appearance: well nourished Orientation/consciousness: patient oriented x3 Resp Effort & Inspection: normal respiratory effort, able to speak in complete sentences, no tracheal deviation and symmetric chest movement Auscultation: clear to auscultation bilaterally Cardio Rate: regular rate GI Inspection: No distended Palpation (GI): Soft to palpation, not firm, nontender and No hepatosplenomegaly present Auscultation: normal bowel sounds General: Yes no CVA tenderness Back/Spine/Pelvis Back: no CVA tenderness Skin General skin exam: elasticity normal, turgor normal and dry skin Neuro General: patient oriented x3 Psych Appearance: grossly normal Mental Status: mental status grossly normal Assessment & Plan Assessment & Plan (1) Screen for colon cancer: Code(s): Z12.11 - Encounter for screening for malignant neoplasm of colon (2) Constipation: Code(s): K59.00 - Constipation, unspecified Qualifiers: Constipation type: slow transit constipation Qualified Code(s): K59.01 - Slow transit constipation (3) GERD (gastroesophageal reflux disease): Code(s): K21.9 - Gastro-esophageal reflux disease without esophagitis Qualifiers: Esophagitis presence: esophagitis presence not specified Qualified Code(s): K21.9 - Gastro-esophageal reflux disease without esophagitis (4) Postprandial epigastric pain: Code(s): R10.13 - Epigastric pain Plan Patient denies any cardiac or respiratory symptoms.? Denies any issues with anesthesia in the past.? Denies any history of sleep apnea.? No history infectious diseases in the past or present.? History of C diff colitis in 2020. Not on any anticoagulation therapy.? No family or personal history of colon cancer or polyps.? Patient denies melena, hematochezia, unintentional weight loss or ribbon like stools.? Patient does admit to be constipated will give her script for stool softener and Dulcolax to take daily. Patient is on PPI twice a day and occasionally will continue to have a postprandial epigastric discomfort sometimes nausea and vomiting. Will send patient for upper endoscopy to rule out gastritis, esophagitis, duodenitis, gastric or peptic ulcers, Dougherty's, H pylori. Discussed at length the pre-procedure,? prep, diet & medications as well as what to expect prior, during and after the procedure.?? Stressed the importance of good bowel prep. ?Recommended the use of Vaseline or Calmoseptine OTC & baby wipes with bowel movements to promote comfort.? ?Patient verbalizes understanding and agrees to plan of care.? She was given the opportunity to ask questions and all questions answered.? We will see her after the procedure.? Orders: Orders FL upper GI series Today K21.9 - Gastro-esophageal reflux disease without esophagitis Medications: New bisacodyl (Dulcolax (bisacodyl)) Start taking 2 tablet every night 7 days before the procedure and 1 day before procedure take 4 tablets at noon time followed by MiraLax prep 10 mg (2 x 5 mg) PO BEDTIME 16 tabs 0RF Z12.11 - Encounter for screening for malignant neoplasm of colon bisacodyl (Dulcolax (bisacodyl)) Start taking 2 tablet every night 7 days before the procedure and 1 day before procedure take 4 tablets at noon time followed by mag. citrate 10 mg (2 x 5 mg) PO BEDTIME 16 tabs 0RF Z12.11 - Encounter for screening for malignant neoplasm of colon bisacodyl (Dulcolax (bisacodyl)) 10 mg (2 x 5 mg) PO BEDTIME 180 tabs 4RF constipation docusate sodium 100 mg PO BEDTIME 90 caps 3RF K59.00 - Constipation, unspecified magnesium citrate 296 mL PO ONCE 296 mL 1RF Z12.11 - Encounter for screening for malignant neoplasm of colon Coding Level of Care Code New Pt Level 4 (54114) Diagnoses Screen for colon cancer Z12.11 Slow transit constipation K59.01 Constipation type: slow transit constipation Gastroesophageal reflux disease, unspecified whether esophagitis present K21.9 Esophagitis presence: esophagitis presence not specified Postprandial epigastric pain R10.13 Time Spent (min) 45 Comment 30 minutes spent with patient and additional 15 minutes spent reviewing her records
== END 2023-07-20 15:52 | disposition home or self-care (01) ==
PROVIDERS: PCP Internal Medicine Geriatric Medicine; Referring Provider Internal Medicine Geriatric Medicine; Visit Provider Nurse Practitioner Family
DX: K59.01 Slow transit constipation (principal); K21.9 Gastro-esophageal reflux disease without esophagitis; Z12.11 Encounter for screening for malignant neoplasm of colon
CPT/HCPCS: 99204

== ENCOUNTER → 2023-07-20 14:34 | Outpatient (BNVA) | payer MEDICARE, MEDICAID, SELFPAY | PROVIDERS: PCP Internal Medicine Geriatric Medicine; Referring Provider Internal Medicine Geriatric Medicine; Visit Provider Nurse Practitioner Family | DX: Z12.11 Encounter for screening for malignant neoplasm of colon (principal); K59.01 Slow transit constipation; K21.9 Gastro-esophageal reflux disease without esophagitis; R10.13 Epigastric pain | CPT/HCPCS: 99202 ==

== ENCOUNTER 2023-08-19 13:33 | Outpatient (AMB) | payer MEDICARE, MEDICAID, SELFPAY ==
--- NOTE | 2023-08-19 13:49 | AM.OFFVISNUR ---
Intake Intake Visit Reasons: Evenity Injection Allergies pravastatin Allergy (Unknown, Verified 07/20/23 14:50) Unknown. Sulfa (Sulfonamide Antibiotics) Allergy (Unknown, Verified 07/20/23 14:50) Unknown. Office Meds romosozumab-aqqg 210 mg/2.34 mL(105 mg/1.17 mL x2)subcutaneous syringe Performing Provider: Oz Perez MD Performing Location: [facility] [place] Endocrinology Administered by: Kika Carl LPN on 08/19/23 13:49 Dose Route Admin Location Dispensed Lot Number Expiration Date [employer] 210 mg subcut Bilateral upper arms 2.34 mL [id number] 10/23/25 AM[facility] Coding Assessment & Plan Assessment & Plan Orders: Orders AMB Romosozumab Injection Patient Supplied Today M81.0 - Age-related osteoporosis without current pathological fracture Medications: New romosozumab-aqqg 210 mg (2.34 mL) subcut ONCE 2.34 mL 0RF M81.0 - Age-related osteoporosis without current pathological fracture
== END 2023-08-19 13:50 | disposition home or self-care (01) ==
PROVIDERS: PCP Internal Medicine Geriatric Medicine; Visit Provider Internal Medicine Endocrinology, Diabetes & Metabolism
DX: M81.0 Age-related osteoporosis without current pathological fracture (principal)

== ENCOUNTER → 2023-08-19 13:33 | Outpatient (BNVA) | payer MEDICARE, MEDICAID, SELFPAY | PROVIDERS: PCP Internal Medicine Geriatric Medicine; Visit Provider Internal Medicine Endocrinology, Diabetes & Metabolism | DX: M81.0 Age-related osteoporosis without current pathological fracture (principal); Z79.620 Long term (current) use of immunosuppressive biologic | CPT/HCPCS: 96372; J3111 ==

== ENCOUNTER 2023-08-30 07:56 | Outpatient (REF) | payer MEDICARE, MEDICAID, SELFPAY ==
--- NOTE | ~2023-08-30 | FL_ITS ---
EXAMINATION: XR FLUOROSCOPY UPPER GI WITH AIR CLINICAL INFORMATION: Reflux. Dysphagia COMPARISON: 09/24/2020. TECHNIQUE: Fluoroscopic air contrast upper GI examination was performed utilizing standard techniques with thin and thick barium and effervescent granules. Numerous spot images were obtained. FINDINGS: Lateral cine images of the oropharynx and hypopharynx demonstrate normal swallow mechanism with normal epiglottic inversion and soft palate elevation. No tracheal penetration, glottic or subglottic aspiration identified. No nasopharyngeal reflux present. There is persistent mild pooling in the vallecula and piriform sinuses. Was premature spillage of contrast before swallow initiated seen on RF 1-3. No aspiration. There is a small anterior cervical web at the C4 level (RF-13, 107/187). There was no significant cricopharyngeal achalasia. Multiple surgical clips are present in the infrahyoid neck, consistent with prior history of thyroidectomy. Dual and single contrast images of the esophagus demonstrate normal caliber, contour, and mucosal pattern. There is felinization of the distal esophageal mucosa. No masses or ulcerations are seen. There is mild narrowing of the GE junction above the hiatal hernia. Esophageal motility is moderately disorganized. A large paraesophageal hernia is present, in which the majority of the body and fundus of the gastric sleeve are positioned in the intrathoracic cavity. No significant gastroesophageal reflux was seen during the course of the examination and on reflux views. Dual contrast and single contrast images of the stomach demonstrated a contour consistent with prior history of sleeve gastrectomy. Evaluation of the gastric mucosa is limited due to lack of distention from poor tolerance of the effervescent granules, with expulsion of gas. There is to and fro motion of the barium between the gastric fundus and the gastric body, however, contrast freely passed into the gastric antrum and duodenal bulb without delay. Single and air-contrast images of the duodenal bulb demonstrate no abnormality. The duodenal sweep has a normal appearance, course, and mucosal fold appearance. No malrotation. The imaged proximal jejunum has a normal fold pattern and caliber. FLUOROSCOPY TIME: 6 minutes 3 seconds Number of Spot Images: 14 Number of Cine: 13 DOSE AREA PRODUCT: 3925 uGy-m2 (microgray-meter squared) FL/FL upper GI series IMPRESSION: 1. 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 This may be clinically insignificant. 2. Status post thyroidectomy. 3. Felinization of the distal esophageal mucosa. This is a benign finding that can be associated with gastroesophageal reflux. Although gastroesophageal reflux was not seen during this examination, suspect at least moderate gastroesophageal reflux. 4. Mild narrowing of the GE junction above the hiatal hernia that may represent achalasia. A benign stricture cannot be ruled out. 5. Esophageal dysmotility. 6. Large paraesophageal hernia, in which the majority of the body and fundus of the gastric sleeve are positioned in the intrathoracic cavity. Due to the S shape of the stomach, there is to and fro motion of the barium between the fundus and body the stomach. 7. Evaluation of the gastric mucosa is limited due to underdistention of the stomach from poor tolerance of the effervescent granules. This procedure was performed by Marcin Mcneil PA-C, and supervised by Dr. Stahl
== END 2023-08-30 07:57 | disposition home or self-care (01) ==
LOC: HO.XRAY 07:56
PROVIDERS: PCP Internal Medicine Geriatric Medicine; Visit Provider Nurse Practitioner Family
DX: K21.9 Gastro-esophageal reflux disease without esophagitis (principal)
CPT/HCPCS: 74240

== ENCOUNTER → 2023-08-30 07:56 | Outpatient (BNV) | payer MEDICARE, MEDICAID, SELFPAY | PROVIDERS: PCP Internal Medicine Geriatric Medicine; Visit Provider Physician Assistant Surgical | DX: K21.9 Gastro-esophageal reflux disease without esophagitis (principal) | CPT/HCPCS: 74246 ==

== ENCOUNTER 2023-09-14 09:26 | Outpatient (AMB) | payer MEDICARE, MEDICAID, SELFPAY ==
--- NOTE | 2023-09-14 09:35 | MHC.OFFVIS ---
Vital Signs 09/14/23 09:36 Height 5 ft 7 in Weight 213 lb 13.574 oz BMI 33.5 BP 126/68 Blood Pressure Location Lt brachial Position Sitting Pulse 58 Intake Visit Reasons: f/u Upper GI series Intake Note: Coleen presents in the office as a follow up for her Upper GI series. CC: She states that she is just here for the results. Refractory Products Supervisor Required: No Allergies pravastatin Allergy (Unknown, Verified 09/16/23 15:53) Unknown. Sulfa (Sulfonamide Antibiotics) Allergy (Unknown, Verified 09/16/23 15:53) Unknown. HPI HPI f/u Upper GI series: Details: LAST VISIT Screen for colon cancer Constipation GERD (gastroesophageal reflux disease) Postprandial epigastric pain Plan Patient denies any cardiac or respiratory symptoms.? Denies any issues with anesthesia in the past.? Denies any history of sleep apnea.? No history infectious diseases in the past or present.? History of C diff colitis in 2020. Not on any anticoagulation therapy.? No family or personal history of colon cancer or polyps.? Patient denies melena, hematochezia, unintentional weight loss or ribbon like stools.? Patient does admit to be constipated will give her script for stool softener and Dulcolax to take daily. Patient is on PPI twice a day and occasionally will continue to have a postprandial epigastric discomfort sometimes nausea and vomiting. Will send patient for upper endoscopy to rule out gastritis, esophagitis, duodenitis, gastric or peptic ulcers, Dougherty's, H pylori. Discussed at length the pre-procedure,? prep, diet & medications as well as what to expect prior, during and after the procedure.?? Stressed the importance of good bowel prep. ?Recommended the use of Vaseline or Calmoseptine OTC & baby wipes with bowel movements to promote comfort.? ?Patient verbalizes understanding and agrees to plan of care.? She was given the opportunity to ask questions and all questions answered.? We will see her after the procedure.? Orders Orders FL upper GI series Today K21.9 Medications New bisacodyl (Dulcolax (bisacodyl)) Start taking 2 tablet every night 7 days before the procedure and 1 day before procedure take 4 tablets at noon time followed by MiraLax prep 10 mg (2 x 5 mg) PO BEDTIME 16 tabs 0RF Z12.11 bisacodyl (Dulcolax (bisacodyl)) Start taking 2 tablet every night 7 days before the procedure and 1 day before procedure take 4 tablets at noon time followed by mag. citrate 10 mg (2 x 5 mg) PO BEDTIME 16 tabs 0RF Z12.11 bisacodyl (Dulcolax (bisacodyl)) 10 mg (2 x 5 mg) PO BEDTIME 180 tabs 4RF constipation docusate sodium 100 mg PO BEDTIME 90 caps 3RF K59.00 magnesium citrate 296 mL PO ONCE 296 mL 1RF Z12.11 TODAY'S VISIT Patient is here today for follow-up discuss upper GI study results. Patient reports that she has feeling better. Eats smaller meals more often. Patient is moving her bowels well without issues now. Large paraesophageal hernia, in which the majority of the body and fundus of the gastric sleeve are positioned in the intrathoracic cavity. Significant acid reflux noted. Patient is taking omeprazole twice a day. Patient reports that she does have epigastric pain and us reflux mostly at night. Patient denies any nausea or vomiting. Denies any melena or hematochezia [facility] Medical History (Updated 09/16/23 @ 16:38 by Jeremi Rowe MD) Seizures Anxiety Depression Hyperlipidemia Osteoporosis Renal calculi Vitamin D deficiency History of thyroid cancer Hypothyroidism Chronic back pain Insomnia Diarrhea Osteoarthritis Anxiety and depression C. difficile colitis Asthma Hernia Surgical History (Updated 09/16/23 @ 16:12 by Jeremi Rowe MD) S/P panniculectomy H/O tubal ligation History of appendectomy H/O thyroidectomy Gastric bypass status for obesity Family History Mother Graves disease Social History Household Members: Spouse Housing: House Do you presently have visiting nurse or other home services: No Patient Tobacco Use Status: Former Tobacco user Quit Date: october 2005 Cigarettes Per Day: 2 Years Smoked: 10 years service: No Current occupational status: unemployed Female Reproductive History Menstrual Age of Menarche: 14 Review of Systems Const Denies weight gain and Denies weight loss ENT Reports no additional complaints, Reports dysphagia and Denies odynophagia Card Reports no additional complaints Resp Reports no additional complaints GI Denies abdominal pain, Denies belching, Denies melena, Reports bloating, Denies change in bowel habits, Reports dysphagia, Denies excessive flatus, Denies dyspepsia, Reports heartburn, Denies diarrhea, Denies loose stools, Denies nausea, Denies odynophagia and Denies vomiting Reports no additional complaints Musc Reports no additional complaints Neuro Reports no additional complaints Psych Reports no additional complaints Endo Reports no additional complaints Physical Exam Vital Signs: Last Vital Signs Pulse 58 09/14/23 09:36 BP 126/68 09/14/23 09:36 BMI result Body Mass Index 33.5 Const General: healthy appearing, no acute distress and well developed Nutritional Appearance: well nourished Orientation/consciousness: patient oriented x3 Resp Effort & Inspection: normal respiratory effort, able to speak in complete sentences, no tracheal deviation and symmetric chest movement Auscultation: clear to auscultation bilaterally Cardio Rate: regular rate GI Inspection: No distended Palpation (GI): Soft to palpation, not firm, nontender and No hepatosplenomegaly present Auscultation: normal bowel sounds General: Yes no CVA tenderness Back/Spine/Pelvis Back: no CVA tenderness Skin General skin exam: elasticity normal, turgor normal and dry skin Neuro General: patient oriented x3 Psych Appearance: grossly normal Mental Status: mental status grossly normal Results Reviewed Results Reviewed: UPPER GI IMPRESSION: 1. 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 This may be clinically insignificant. 2. Status post thyroidectomy. 3. Felinization of the distal esophageal mucosa. This is a benign finding that can be associated with gastroesophageal reflux. Although gastroesophageal reflux was not seen during this examination, suspect at least moderate gastroesophageal reflux. 4. Mild narrowing of the GE junction above the hiatal hernia that may represent achalasia. A benign stricture cannot be ruled out. 5. Esophageal dysmotility. 6. Large paraesophageal hernia, in which the majority of the body and fundus of the gastric sleeve are positioned in the intrathoracic cavity. Due to the S shape of the stomach, there is to and fro motion of the barium between the fundus and body the stomach. 7. Evaluation of the gastric mucosa is limited due to underdistention of the stomach from poor tolerance of the effervescent granules. Assessment & Plan Assessment & Plan (1) Paraesophageal hernia: Code(s): K44.9 - Diaphragmatic hernia without obstruction or gangrene Category: Medical (2) Constipation: Code(s): K59.00 - Constipation, unspecified Qualifiers: Constipation type: slow transit constipation Qualified Code(s): K59.01 - Slow transit constipation (3) GERD (gastroesophageal reflux disease): Code(s): K21.9 - Gastro-esophageal reflux disease without esophagitis Qualifiers: Esophagitis presence: esophagitis presence not specified Qualified Code(s): K21.9 - Gastro-esophageal reflux disease without esophagitis (4) Postprandial epigastric pain: Code(s): R10.13 - Epigastric pain Plan Patient will continue avoiding dietary triggers. Will refer to bariatric surgery. Eat small meals and more often. Continue omeprazole twice a day. Will add sucralfate at bedtime. Patient will follow-up in the office in 2 months to discuss colonoscopy patient will most likely have upper endoscopy done by Dr. Rowe and if not we will send her for upper endoscopy as well. Patient has the procedure scheduled for November 10. Patient is agreeable to this plan and verbalizes understanding of instructions. She was given the ask questions and all questions answered Thank you for allowing me to participate in her care Medications: New sucralfate 1 g PO BEDTIME 30 tabs 1RF R19.7 - Diarrhea, unspecified Coding Level of Care Code Est Pt Level 4 (13550) Diagnoses Paraesophageal hernia K44.9 Slow transit constipation K59.01 Constipation type: slow transit constipation Gastroesophageal reflux disease, unspecified whether esophagitis present K21.9 Esophagitis presence: esophagitis presence not specified Postprandial epigastric pain R10.13 Time Spent (min) 40 Comment 25 minutes spent with patient and additional 15 minutes spent reviewing her records
[2023-09-14 09:36] VITALS: BP 126/68; PULSE 58; BMI 33.5
== END 2023-09-14 10:20 | disposition home or self-care (01) ==
PROVIDERS: PCP Internal Medicine Geriatric Medicine; Visit Provider Nurse Practitioner Family
DX: K44.9 Diaphragmatic hernia without obstruction or gangrene (principal); K59.01 Slow transit constipation; K21.9 Gastro-esophageal reflux disease without esophagitis; R10.13 Epigastric pain
CPT/HCPCS: 99214

== ENCOUNTER → 2023-09-14 09:26 | Outpatient (BNVA) | payer MEDICARE, MEDICAID, SELFPAY | PROVIDERS: PCP Internal Medicine Geriatric Medicine; Visit Provider Nurse Practitioner Family | DX: K44.9 Diaphragmatic hernia without obstruction or gangrene (principal); K59.01 Slow transit constipation; K21.9 Gastro-esophageal reflux disease without esophagitis; R10.13 Epigastric pain | CPT/HCPCS: 99212 ==

== ENCOUNTER 2023-09-16 09:48 | Outpatient (AMB) | payer MEDICARE, MEDICAID, SELFPAY ==
--- NOTE | 2023-09-16 15:53 | A.OFFVIS_ITS ---
VS Expanded 09/16/23 15:53 Height 5 ft 7 in Intake Visit Reasons: TV Paraoesophageal Hernia - Referred by GI Allergies pravastatin Allergy (Unknown, Verified 09/16/23 15:53) Unknown. Sulfa (Sulfonamide Antibiotics) Allergy (Unknown, Verified 09/16/23 15:53) Unknown. Medication List - Last Reconciled 09/16/23 by Jeremi Rowe MD albuterol sulfate 90 mcg/actuation 2 puffs PO Q4-6H PRN bisacodyl (Dulcolax (bisacodyl)) 10 mg (2 x 5 mg) PO BEDTIME bisacodyl (Dulcolax (bisacodyl)) 10 mg (2 x 5 mg) PO BEDTIME buspirone 30 mg PO BID carisoprodol 350 mg PO QID diclofenac sodium 1% grams topical BID PRN docusate sodium 100 mg PO BEDTIME ezetimibe 10 mg PO DAILY fluticasone propionate 50 mcg/actuation sprays intranasal levothyroxine 137 mcg PO DAILY loratadine 10 mg PO QAM magnesium citrate 296 mL PO ONCE omeprazole 40 mg PO BID ondansetron 4 mg PO Q8H PRN oxcarbazepine 150 mg PO BID romosozumab-aqqg (Evenity) 210 mg (2.34 mL) subcut .q month sucralfate 1 g PO BEDTIME tramadol 50 mg PO TID PRN venlafaxine ER 75 mg PO BEDTIME venlafaxine ER 150 mg PO BEDTIME zolpidem 10 mg PO BEDTIME PRN HPI HPI TV Paraoesophageal Hernia - Referred by GI: Details: Start time: 3.50pm, End time: 4.50pm ?I spent 40 minutes speaking with the patient on the phone plus an additional 20 minutes reviewing and updating records for a total of 60 minutes HPI Comments Details: Previous weight loss efforts: LSG at [facility] (pre-sleeve weight: 322lbs, lowest weight: 197lbs) Wakes up: 8am, Sleeps: 8pm Breakfast: 9am (banana) Lunch: skips Dinner: skips Snacks: several snacks during the day (yogurt, peanut butter), Premier shakes and bars Exercise: has home treadmill Fluids: Coffee: stopped recently, tea: 1-2 cups/week, soda: none, juice: none, ETOH: none PFSH Medical History (Updated 09/16/23 @ 16:38 by Jeremi Rowe MD) Seizures Anxiety Depression Hyperlipidemia Osteoporosis Renal calculi Vitamin D deficiency History of thyroid cancer Hypothyroidism Chronic back pain Insomnia Diarrhea Osteoarthritis Anxiety and depression C. difficile colitis Asthma Hernia Surgical History (Updated 09/16/23 @ 16:12 by Jeremi Rowe MD) S/P panniculectomy H/O tubal ligation History of appendectomy H/O thyroidectomy Gastric bypass status for obesity Family History Mother Graves disease Social History Household Members: Spouse Housing: House Do you presently have visiting nurse or other home services: No Patient Tobacco Use Status: Former Tobacco user Quit Date: october 2005 Cigarettes Per Day: 2 Years Smoked: 10 years service: No Current occupational status: unemployed Female Reproductive History Menstrual Age of Menarche: 14 Telehealth Telehealth Telehealth Platform: Telephone Location of provider rendering services: practice address Location of patient: address on file Patient Identification confirmed using: Name, : Yes Telehealth method: voice only Patient verbally consented to treatment: Yes Patient verbally consented to billing insurance company: Yes Patient informed of any privacy concerns related to visit: Yes Minutes spent on Phone/Video with Pt.: 60 Assessment & Plan Assessment & Plan (1) Paraesophageal hernia: Code(s): K44.9 - Diaphragmatic hernia without obstruction or gangrene Category: Medical Plan: 1. We discussed the potential etiology of the hernia that could be of traumatic etiology as a result of her illness 2 years ago worsened by her weight. We discussed the details of the diaphragmatic hernia repair and the potential technical challenges such as being able to achieve enough mobilization of the esophagus back in the abdomen and being able to close the diaphragmatic muscle (crura) primarily with sutures. We also discussed the possibility of using a biologic mesh to close the hernia defect if the crura cannot be adequately re- approximated primarily with sutures. As we discussed, I favor the gastropexy to reinforce the hernia repair. Also we discussed the complexity of a potential hernia recurrence in association with a hernia recurrence. Shee was in agreement to proceed. 2. The patient would benefit for a combined approach to address also simultaneously the obesity issue by performing a sleeve revision given her sleeve has not been performed properly.? Risks and complications include possible conversion to an open procedure, anastomotic leak, bleeding requiring transfusion, small bowel obstruction, , DVT and pulmonary embolism, cardiac, or pulmonary complications, as senior care complications such as anastomotic ulcer, insufficient weight loss and vitamin deficiencies. I emphasized the importance of close follow-up, adherence to instructions and good communication. 3. You will receive a link of our software rashad to generate an individualized nutritional and exercise plan specific for you. Please send me a screenshot of the plans you will generate Meal to include lean meat (beef, fish, pork, turkey, chicken), or tunisian yogurt, or egg whites, or beans with a salad with olive oil and fruits (berries, pears, apples, kiwi). Avoid salt, breads, potatoes, rice, pasta, desserts. 4. If you choose shakes, each shake would be drunk slowly, like coffee in a period of 2 hours. ?5. If you choose bars, cut each bar in 4 pieces and eat each piece in 30min ?to make each bar last 2 hours. ?6. I emphasized the importance of measuring accurately the food portion and measure it when serving the food in plate ?7. The meal portions include a specific number of forks of meat and salad. You always eat the meat portion but you can replace up to half of salad/vegetables portion with rice, potatoes or pasta, or a fruit ?if you like. The less you do it the better weight loss will be. ?8. One full-size fork is what it can be scooped on the fork without falling aside and not what can be bit with the fork. Use regular forks like those you find in a typical restaurant. ?9.? Please send me weight measurements as soon as possible and then once a week. Always include your diet and exercise plan. 10. The best choice would be to purchase a stationary bike, elliptical or treadmill at home that can track calories. Let me know if you do so I can give you an exercise plan. ?11.?Goal is to lose at least 1.5-2lbs per week ?12. Goal to lose 10% of your weight before surgery, which is about 21lbs. U ltimate weight goal: 194lbs before surgery 13. Please follow the diet plan exactly without any change. If you don't like something about the plan or you feel hungry you need to communicate with me so I can help you revise the plan. You should not change the plan yourself. 14. To be scheduled for EGD due to history of GERD and large diaphragmatic hernia. The possibility of biopsies was discussed. Patient needs to avoid use of NSAIDs and aspirin for 1 week prior to EGD. Risks of perforation and? bleeding was discussed with the patient. This will be an outpatient procedure with IV sedation. Orders: Orders Insulin Today E78.5 - Hyperlipidemia, unspecified, J45.909 - Unspecified asthma , uncomplicated, K44.9 - Diaphragmatic hernia without obstruction or gangrene Hemoglobin A1c Today E78.5 - Hyperlipidemia, unspecified, J45.909 - Unspecified asthma, uncomplicated, K44.9 - Diaphragmatic hernia without obstruction or gangrene H Pylori Breath Test Today E78.5 - Hyperlipidemia, unspecified, J45.909 - Unspecified asthma, uncomplicated, K44.9 - Diaphragmatic hernia without obstruction or gangrene Complete Blood Count Auto Diff Today E78.5 - Hyperlipidemia, unspecified, J45.909 - Unspecified asthma, uncomplicated, K44.9 - Diaphragmatic hernia without obstruction or gangrene IRON PROFILE Today E78.5 - Hyperlipidemia, unspecified, J45.909 - Unspecified asthma, uncomplicated, K44.9 - Diaphragmatic hernia without obstruction or gangrene Comprehensive Met. Panel Today E78.5 - Hyperlipidemia, unspecified, J45.909 - Unspecified asthma, uncomplicated, K44.9 - Diaphragmatic hernia without obstruction or gangrene Zinc Today E78.5 - Hyperlipidemia, unspecified, J45.909 - Unspecified asthma, uncomplicated, K44.9 - Diaphragmatic hernia without obstruction or gangrene C Reactive Protein Today E78.5 - Hyperlipidemia, unspecified, J45.909 - Unspecified asthma, uncomplicated, K44.9 - Diaphragmatic hernia without obstruction or gangrene Vitamin A Today E78.5 - Hyperlipidemia, unspecified, J45.909 - Unspecified asthma, uncomplicated, K44.9 - Diaphragmatic hernia without obstruction or gangrene TSH reflex Free T4 Today E78.5 - Hyperlipidemia, unspecified, J45.909 - Unspecified asthma, uncomplicated, K44.9 - Diaphragmatic hernia without obst ruction or gangrene US abdomen comp w elastography Today E78.5 - Hyperlipidemia, unspecified, J45.909 - Unspecified asthma, uncomplicated, K44.9 - Diaphragmatic hernia witho ut obstruction or gangrene CT chest wo IV con Today E78.5 - Hyperlipidemia, unspecified, J45.909 - Unspecified asthma, uncomplicated, K44.9 - Diaphragmatic hernia without ob struction or gangrene Lipid Panel Today E78.5 - Hyperlipidemia, unspecified, J45.909 - Unspecified asthma, uncomplicated, K44.9 - Diaphragmatic hernia without obstruction or gangrene Vitamin B12 and Folate Today E78.5 - Hyperlipidemia, unspecified, J45.909 - Unspecified asthma, uncomplicated, K44.9 - Diaphragmatic hernia without obstruction or gangrene Vitamin B1 Today E78.5 - Hyperlipidemia, unspecified, J45.909 - Unspecified asthma, uncomplicated, K44.9 - Diaphragmatic hernia without obstruction or gangrene Ferritin Today E78.5 - Hyperlipidemia, unspecified, J45.909 - Unspecified asthma, uncomplicated, K44.9 - Diaphragmatic hernia without obstruction or gangrene Vitamin D 25-OH Total Today E78.5 - Hyperlipidemia, unspecified, J45.909 - Unspecified asthma, uncomplicated, K44.9 - Diaphragmatic hernia without obstruction or gangrene XR chest 2V Today E78.5 - Hyperlipidemia, unspecified, J45.909 - Unspecified asthma, uncomplicated, K44.9 - Diaphragmatic hernia without obstruction or gangrene ECG 12 lead EKG Today E78.5 - Hyperlipidemia, unspecified, J45.909 - Unspecified asthma, uncomplicated, K44.9 - Diaphragmatic hernia without obstruction or gangrene CT abdomen pelvis wo IV con Today E78.5 - Hyperlipidemia, unspecified, J45.909 - Unspecified asthma, uncomplicated, K44.9 - Diaphragmatic hernia without obstruction or gangrene Referrals 2 Behavioral Health Referral E78.5 - Hyperlipidemia, unspecified, J45.909 - Unspecified asthma, uncomplicated, K44.9 - Diaphragmatic hernia without obstruction or gangrene Nutrition/Dietitian Referral E78.5 - Hyperlipidemia, unspecified, J45.909 - Unspecified asthma, uncomplicated, K44.9 - Diaphragmatic hernia without obstruction or gangrene
== END 2023-09-16 16:51 | disposition home or self-care (01) ==
PROVIDERS: PCP Internal Medicine Geriatric Medicine; Visit Provider Surgery
DX: K44.9 Diaphragmatic hernia without obstruction or gangrene (principal)
CPT/HCPCS: 99443

== ENCOUNTER → 2023-09-16 09:48 | Outpatient (BNVA) | payer MEDICARE, MEDICAID, SELFPAY | PROVIDERS: PCP Internal Medicine Geriatric Medicine; Visit Provider Surgery | DX: K44.9 Diaphragmatic hernia without obstruction or gangrene (principal) | CPT/HCPCS: 96372; J3111 ==

== ENCOUNTER 2023-09-16 13:39 | Outpatient (AMB) | payer MEDICARE, MEDICAID, SELFPAY ==
--- NOTE | 2023-09-16 14:04 | AM.OFFVISNUR ---
Intake Intake Visit Reasons: Evenity Injection Allergies pravastatin Allergy (Unknown, Verified 09/14/23 09:45) Unknown. Sulfa (Sulfonamide Antibiotics) Allergy (Unknown, Verified 09/14/23 09:45) Unknown. Office Meds romosozumab-aqqg 210 mg/2.34 mL(105 mg/1.17 mL x2)subcutaneous syringe Performing Provider: Oz Perez MD Performing Location: [facility] [place] [facility] [place] Administered by: Glenis Mclaughlin RN on 09/16/23 14:04 Dose Route Admin Location Dispensed Lot Number Expiration Date [facility] [employer] Code Enforcement Officer 210 mg subcut Bilateral upper arms 2.34 mL [id number] 10/23/25 39642-372-38 [facility] Comments: Consent form signed. Pt tolerated injections well. Pt denies any adverse reactions to past injections. Coding Assessment & Plan Assessment & Plan Orders: Orders AMB Romosozumab Injection Patient Supplied Today M81.0 - Age-related osteoporosis without current pathological fracture Medications: New romosozumab-aqqg 210 mg (2.34 mL) subcut ONCE 2.34 mL 0RF M81.0 - Age-related osteoporosis without current pathological fracture
== END 2023-09-16 14:02 | disposition home or self-care (01) ==
PROVIDERS: PCP Internal Medicine Geriatric Medicine; Visit Provider Internal Medicine Endocrinology, Diabetes & Metabolism
DX: M81.0 Age-related osteoporosis without current pathological fracture (principal)

== ENCOUNTER 2023-09-29 11:59 | Outpatient (REF) | payer MEDICARE, MEDICAID, SELFPAY ==
--- NOTE | ~2023-09-29 | XR_ITS ---
EXAMINATION: XR CHEST CLINICAL INFORMATION: Diaphragmatic hernia without obstruction or gangrene. COMPARISON: August 26, 2018. TECHNIQUE: 2 views of the chest were obtained. FINDINGS: The lungs are well inflated. There is no gross pneumothorax. Dextroscoliosis of the thoracolumbar spine with multilevel degenerative changes. Heart size is normal. No pleural effusion. No new focal consolidation to suggest pneumonia. XR/XR chest 2V IMPRESSION: No evidence of pneumonia.
--- NOTE | 2023-09-29 12:10 | ECG_ITS ---
Test Reason : K44.9 Blood Pressure : / mmHG Vent. Rate : 057 BPM Atrial Rate : 057 BPM P-R Int : 156 ms QRS Dur : 086 ms QT Int : 450 ms P-R-T Axes : 049 005 034 degrees QTc Int : 438 ms Sinus bradycardia Otherwise normal ECG No previous ECGs available Referred By: Jeremi Rowe Electronically Signed By:WILMER FARRELL MD
[2023-09-29 12:15] LABS: MANUAL DIFF FLAG NO
[2023-09-29 12:53] LABS: Basophils Percent Auto 0.6 % (0-2); Eosinophils Absolute Auto 0.1 X10*3/uL (0.0-0.4); Eosinophils Percent Auto 1.7 % (0-4); Hematocrit 39.8 % (37.0-47.0); Hemoglobin 13.2 g/dl (12.0-16.0); Imm Gran Abs Auto 0.02 X10*3/uL (0.00-0.03); Imm Gran Pct Auto 0.4 % (0.0-0.4); Lymphocytes Absolute Auto 2.2 X10*3/uL (1.2-4.9); Lymphocytes Percent Auto 40.3 % (20-40); Mean Corpuscular HGB Conc 33.2 g/dl (31.0-35.0); Mean Corpuscular Hemoglobin 28.4 pg (27.0-33.0); Mean Corpuscular Volume 85.6 fL (80.0-98.0); Mean Platelet Volume 12.4 fL (9.4-12.3); Monocytes Absolute Auto 0.4 X10*3/uL (0.1-1.2); Monocytes Percent Auto 6.9 % (2-11); Neutrophils Absolute Auto 2.7 x10*3/uL (2.0-8.3); Neutrophils Percent Auto 50.1 % (45-73); Platelet Count 287 X10*3/uL (160-400); Red Blood Count 4.65 X10*6/uL (4.20-5.50); Red Cell Distribution Width 13.6 % (11.0-16.0); White Blood Count 5.3 X10*3/uL (4.8-10.8)
[2023-09-29 13:13] LABS: Estimated Average Glucose 114 mg/dL; Hemoglobin A1c % 5.6 % (<6.0)
[2023-09-29 13:59] LABS: Alanine Aminotransferase 19 U/L (0-31); Albumin Level 4.2 g/dL (3.5-5.0); Alkaline Phosphatase 68 U/L (39-117); Anion Gap 16 (12-20); Aspartate Amino Transferase 22 U/L (5-31); Bilirubin Total 0.3 mg/dL (0.0-1.0); Blood Urea Nitrogen 10 mg/dL (9-16); C Reactive Protein < 0.10 mg/dL (< or = 0.50); Calcium 9.2 mg/dL (8.4-10.2); Carbon Dioxide 24 mmol/L (22-29); Chloride 107 mmol/L (96-108); Cholesterol 266 mg/dL (<200); Estimated Glomerular Filt Rate > 60; Glucose Random 98 mg/dL (60-115); HDL Cholesterol 43 mg/dL (>40); Iron 112 mcg/dL (30-160); LDL Cholesterol Calculated 188 mg/dL (<100); Percent Iron Saturation 25 % (15-50); Sodium 143 mmol/L (135-145); Total Iron Binding Capacity 448 mcg/dL (228-428); Triglycerides 177 mg/dL (<150); Unsaturated Iron Binding 336 ug/dL
[2023-09-29 14:16] LABS: Ferritin 13 ng/mL (10-250); TSH reflex Free T4 0.24 uIU/mL (0.32-4.0); Vitamin D 25-OH Total 32.9 ng/mL (>30)
[2023-09-29 14:32] LABS: Vitamin B12 462 pg/mL (200-900)
[2023-09-29 14:57] LABS: Free T4 (Free Thyroxine) 1.28 ng/dL (0.71-1.85); Insulin 12 uU/mL (2-29)
[2023-10-02 18:47] LABS: Zinc 70 mcg/dL (60-130)
[2023-10-03 15:54] LABS: Vitamin A 48 mcg/dL (38-98)
[2023-10-06 14:38] LABS: Vitamin B1 <6 nmol/L (8-30)
== END 2023-09-29 12:00 | disposition home or self-care (01) ==
LOC: HO.LAB 11:59
PROVIDERS: PCP Internal Medicine Geriatric Medicine; Visit Provider Surgery
DX: K44.9 Diaphragmatic hernia without obstruction or gangrene (principal); E78.5 Hyperlipidemia, unspecified; J45.909 Unspecified asthma, uncomplicated
CPT/HCPCS: 36415; 71046; 80053; 80061; 82306; 82607; 82728; 82746; 83036; 83525; 83540; 84425; 84439; 84443; 84590; 84630; 85025; 86140; 93005

== ENCOUNTER → 2023-09-29 12:10 | Outpatient (BNV) | payer MEDICARE, MEDICAID, SELFPAY | PROVIDERS: PCP Internal Medicine Geriatric Medicine; Visit Provider Internal Medicine Cardiovascular Disease | DX: R00.1 Bradycardia, unspecified (principal) | CPT/HCPCS: 93010 ==

== ENCOUNTER 2023-10-06 08:48 | Outpatient (REF) | payer MEDICARE, MEDICAID, SELFPAY ==
--- NOTE | ~2023-10-06 | US_ITS ---
EXAMINATION: US COMPLETE ABDOMEN WITH LIVER ELASTOGRAPHY CLINICAL INFORMATION: Obesity. COMPARISON: CT abdomen 10/11/2020. TECHNIQUE: Real-time imaging of the abdominal viscera. Noninvasive ultrasound liver fibrosis assessment is performed using Blanca ElastPQ point quantification shear wave elastography (2D-SWE) with a C5-2 MHz transducer. Multiple elastography samples are obtained. FINDINGS: PANCREAS: appearance. The remainder of the pancreas is obscured from visualization by the overlying bowel gas. ABDOMINAL AORTA: The proximal, middle, and distal aortic segments are normal in caliber. INFERIOR VENA CAVA: Visualized portions are normal. LIVER: . The liver demonstrates normal size size and contour but demonstrates increased echogenicity suggesting hepatic steatosis. No focal lesion or intrahepatic biliary duct dilatation. The right lobe measures 12.8 cm in length. The left lobe measures 13.1 cm in length. Portal flow is towards the liver (hepatopetal). Shear wave liver elastography median stiffness is 1.16 m/s (reference: normal median stiffness is 1.3 m/s or less). IQR/median stiffness to assess sampling precision is 0.15 (reference: good quality data set is IQR/median stiffness of 0.15 or less). GALLBLADDER: A mobile gallstones are seen without, , polyps, wall thickening or pericholecystic fluid. COMMON BILE DUCT: Normal in caliber measuring 0.5 cm in diameter. RIGHT KIDNEY: . No hydronephrosis. No renal calculi . A benign lower pole 5.4 cm Bosniak class I renal cyst is noted which requires no additional imaging or follow up. No solid renal masses are seen. The kidney measures 11.5 cm in maximum dimension. LEFT KIDNEY: No hydronephrosis. No renal calculi . A benign parapelvic 1.1 cm Bosniak class I renal cyst is noted which requires no additional imaging or follow up. No solid renal masses are seen. The kidney measures 11.1 cm in maximum dimension. SPLEEN: Normal. The spleen measures 11.5 cm in maximum dimension. FREE FLUID: None. US/US abdomen comp w elastography IMPRESSION: 1. Increased echogenicity of the liver consistent with hepatic steatosis. 2. Cholelithiasis without cholecystitis. Liver elastography: Measurements are consistent with a high probability of normal liver stiffness. REFERENCE: Society of Radiologists in Ultrasound Liver Stiffness Thresholds (2020): LIVER STIFFNESS THRESHOLDS: *Liver Stiffness equal or less than 1.3 m/s: High probability of being normal. *Liver Stiffness less than 1.7 m/s: In the absence of other known clinical signs, rules out compensated advanced chronic liver disease. *Liver Stiffness 1.7-2.1 m/s: Suggestive of compensated advanced chronic liver disease but need further test for confirmation. *Liver Stiffness over 2.1 m/s: Rules in compensated advanced chronic liver disease. *Liver Stiffness over 2.4 m/s: Suggestive of clinically significant portal hypertension. QUALITY OF DATA SET: *IQR/Median value equal or less than 0.15 implies a quality data set. *IQR/Median value over 0.15 implies a poor quality data set. SIGNIFICANT CHANGE FROM PRIOR EXAM: Significant change if liver stiffness measurement is 10% or greater from prior exam. OTHER CONSIDERATIONS: The stage of liver fibrosis may be overestimated in the setting of acute hepatitis, liver inflammation, elevated liver function tests, hepatic vascular congestion, obstructive cholestasis, non-fasting state, and infiltrative diseases such as amyloidosis and lymphoma. In some patients with NAFLD, the liver stiffness thresholds for compensated advanced chronic liver disease may be lower. In causes other than viral hepatitis and NAFLD, liver stiffness thresholds are not well established.
== END 2023-10-06 08:49 | disposition home or self-care (01) ==
LOC: HO.US 08:48
PROVIDERS: PCP Internal Medicine Geriatric Medicine; Visit Provider Surgery
DX: K44.9 Diaphragmatic hernia without obstruction or gangrene (principal); E78.5 Hyperlipidemia, unspecified; J45.909 Unspecified asthma, uncomplicated
CPT/HCPCS: 76700; 76981

== ENCOUNTER 2023-10-18 13:15 | Outpatient (AMB) | payer MEDICARE, MEDICAID, SELFPAY ==
--- NOTE | 2023-10-18 13:41 | AM.OFFVISNUR ---
Intake Intake Visit Reasons: Evenity Injection Allergies pravastatin Allergy (Unknown, Verified 09/16/23 15:53) Unknown. Sulfa (Sulfonamide Antibiotics) Allergy (Unknown, Verified 09/16/23 15:53) Unknown. Office Meds romosozumab-aqqg 210 mg/2.34 mL(105 mg/1.17 mL x2)subcutaneous syringe Performing Provider: Oz Perez MD Performing Location: [facility] [place] Endocrinology Administered by: Glenis Mclaughlin RN on 10/18/23 13:41 Dose Route Admin Location Dispensed Lot Number Expiration Date [facility] [place] [employer] 210 mg subcut bilateral upper arms 2.34 mL [id number] 10/23/25 81994-075-53 AMGEN Comments: Consent form signed. Pt tolerated injections well. Pt denies any side effects to previous injections. Coding Assessment & Plan Assessment & Plan Orders: Orders AMB Romosozumab Injection Patient Supplied Today M81.0 - Age-related osteoporosis without current pathological fracture Medications: New romosozumab-aqqg 210 mg (2.34 mL) subcut ONCE 2.34 mL 0RF M81.0 - Age-related osteoporosis without current pathological fracture
== END 2023-10-18 13:39 | disposition home or self-care (01) ==
PROVIDERS: PCP Internal Medicine Geriatric Medicine; Visit Provider Internal Medicine Endocrinology, Diabetes & Metabolism
DX: M81.0 Age-related osteoporosis without current pathological fracture (principal)

== ENCOUNTER → 2023-10-18 13:15 | Outpatient (BNVA) | payer MEDICARE, MEDICAID, SELFPAY | PROVIDERS: PCP Internal Medicine Geriatric Medicine; Visit Provider Internal Medicine Endocrinology, Diabetes & Metabolism | DX: M81.0 Age-related osteoporosis without current pathological fracture (principal) | CPT/HCPCS: 96372; J3111 ==

== ENCOUNTER 2023-10-20 11:10 | Day surgery (SDC) | payer MEDICARE, MEDICAID, SELFPAY ==
--- NOTE | 2023-10-18 15:42 | P.CONAN_ITS ---
Documented by User: Vane Sharif NP 10/18/23 15:43 HPI - Anesthesia Eval Consult details Narrative: 63yo F for Upper Endoscopy PMFSH Active Problems Active Problems: All Active Problems Vitamin B1 deficiency (Acute) Seizures (Acute) Insomnia (Acute) Anxiety (Acute) Depression (Acute) Hyperlipidemia (Acute) Asthma (Acute) Osteoarthritis (Acute) BMI 33.0-33.9,adult (Acute) Obesity (Acute) Paraesophageal hernia (Acute) S/P panniculectomy (Acute) Complex ovarian cyst (Acute) Osteoporosis (Acute) Ovarian cyst (Acute) Uterine myoma (Acute) Renal calculi (Acute) Vitamin D deficiency (Acute) Hypothyroidism (Acute) History of thyroid cancer (Acute) Leucocytosis (Acute) Past Medical History Medical History Kidney stones Seizures Anxiety Depression Hyperlipidemia Osteoporosis Renal calculi Vitamin D deficiency History of thyroid cancer Hypothyroidism Chronic back pain Insomnia Diarrhea Osteoarthritis Anxiety and depression C. difficile colitis Asthma Hernia Family History Family History Mother Graves disease Surgical History Surgical History H/O LEEP H/O lithotripsy History of hernia surgery H/O adenoidectomy History of tonsillectomy S/P panniculectomy H/O tubal ligation History of appendectomy H/O thyroidectomy Gastric bypass status for obesity Social History Social History Household Members: Spouse Housing: House Do you presently have visiting nurse or other home services: No Patient Tobacco Use Status: Former Tobacco user Cigarettes Per Day: 2 Years Smoked: 10 years Use of substances other than those prescribed or required for medical reasons: Yes Are you DNR?: No Advance Directives: No Advance Directives Information Provided: Yes service: No Current occupational status: unemployed Meds Allergies Allergy/AdvReac Type Severity Reaction Status Date / Time pravastatin Allergy Severe Blister Verified 10/20/23 12:04 Sulfa (Sulfonamide Allergy Severe Itching Verified 10/20/23 12:04 Antibiotics) Home Medications ?Medication ?Instructions ?Recorded ?Confirmed ?Last Taken ?Type buspirone 30 mg tablet 30 mg PO BID 10/11/20 09/16/23 10/10/20 21:00 History carisoprodol 350 mg tablet 350 mg PO QID 10/11/20 09/16/23 10/10/20 21:00 History ezetimibe 10 mg tablet 10 mg PO DAILY 10/11/20 09/16/23 10/10/20 21:00 History omeprazole 40 mg capsule,delayed 40 mg PO BID 10/11/20 09/16/23 10/10/20 21:00 History release venlafaxine 150 mg 150 mg PO BEDTIME 10/11/20 09/16/23 10/10/20 21:00 History capsule,extended release 24 hr venlafaxine 75 mg capsule,extended 75 mg PO BEDTIME 10/11/20 09/16/23 10/10/20 21:00 History release 24 hr zolpidem 10 mg tablet 10 mg PO BEDTIME PRN insomnia 10/11/20 09/16/23 10/10/20 21:00 History albuterol sulfate 90 mcg/actuation 2 puff PO Q4-6H PRN asthma 04/23/21 09/16/23 Unknown History aerosol inhaler diclofenac sodium 1 % topical gel g topical BID PRN 08/08/21 09/16/23 Unknown History oxcarbazepine 150 mg tablet 150 mg PO BID 08/08/21 09/16/23 10/20/23 History fluticasone propionate 50 spray intranasal 09/14/23 09/16/23 Unknown History mcg/actuation nasal spray,suspension loratadine 10 mg tablet 10 mg PO QAM 09/14/23 09/16/23 Unknown History Exam Narrative Narrative: EKG 09/2023 Vent. Rate : 057 BPM Atrial Rate : 057 BPM P-R Int : 156 ms QRS Dur : 086 ms QT Int : 450 ms P-R-T Axes : 049 005 034 degrees QTc Int : 438 ms Sinus bradycardia Otherwise normal ECG No previous ECGs available Assessment and Plan Assessment Anesthesia Assessment: Chart Reviewed Documented by User: Kristina Duenas MD 10/20/23 13:08 [facility] Past Medical History Medical History Kidney stones Seizures Anxiety Depression Hyperlipidemia Osteoporosis Renal calculi Vitamin D deficiency History of thyroid cancer Hypothyroidism Chronic back pain Insomnia Diarrhea Osteoarthritis Anxiety and depression C. difficile colitis Asthma Hernia Family History Family History Mother Graves disease Family history of problems with anesthesia: No Surgical History Surgical History H/O LEEP H/O lithotripsy History of hernia surgery H/O adenoidectomy History of tonsillectomy S/P panniculectomy H/O tubal ligation History of appendectomy H/O thyroidectomy Gastric bypass status for obesity History of Problems with Anesthesia: No Social History Social History Household Members: Spouse Housing: House Do you presently have visiting nurse or other home services: No Patient Tobacco Use Status: Former Tobacco user Cigarettes Per Day: 2 Years Smoked: 10 years Use of substances other than those prescribed or required for medical reasons: Yes Are you DNR?: No Advance Directives: No Advance Directives Information Provided: Yes service: No Current occupational status: unemployed Meds Allergies Allergy/AdvReac Type Severity Reaction Status Date / Time pravastatin Allergy Severe Blister Verified 10/20/23 12:04 Sulfa (Sulfonamide Allergy Severe Itching Verified 10/20/23 12:04 Antibiotics) Home Medications ?Medication ?Instructions ?Recorded ?Confirmed ?Last Taken ?Type buspirone 30 mg tablet 30 mg PO BID 10/11/20 09/16/23 10/10/20 21:00 History carisoprodol 350 mg tablet 350 mg PO QID 10/11/20 09/16/23 10/10/20 21:00 History ezetimibe 10 mg tablet 10 mg PO DAILY 10/11/20 09/16/23 10/10/20 21:00 History omeprazole 40 mg capsule,delayed 40 mg PO BID 10/11/20 09/16/23 10/10/20 21:00 History release venlafaxine 150 mg 150 mg PO BEDTIME 10/11/20 09/16/23 10/10/20 21:00 History capsule,extended release 24 hr venlafaxine 75 mg capsule,extended 75 mg PO BEDTIME 10/11/20 09/16/23 10/10/20 21:00 History release 24 hr zolpidem 10 mg tablet 10 mg PO BEDTIME PRN insomnia 10/11/20 09/16/23 10/10/20 21:00 History albuterol sulfate 90 mcg/actuation 2 puff PO Q4-6H PRN asthma 04/23/21 09/16/23 Unknown History aerosol inhaler diclofenac sodium 1 % topical gel g topical BID PRN 08/08/21 09/16/23 Unknown History oxcarbazepine 150 mg tablet 150 mg PO BID 08/08/21 09/16/23 10/20/23 History fluticasone propionate 50 spray intranasal 09/14/23 09/16/23 Unknown History mcg/actuation nasal spray,suspension loratadine 10 mg tablet 10 mg PO QAM 09/14/23 09/16/23 Unknown History Exam Airway Mallampati Class: II TM Dist: >3cm Neck ROM: Full Heart: rrr Lungs: cta Assessment and Plan Assessment Anesthesia Assessment: Anesthesia Plan Discussed Final Anesthetic Review Family History of Problems with Anesthesia: No History of Problems with Anesthesia: No NPO: Yes ASA Class: III Final Preanesthetic Review: No Changes in Pt Med Stat, Meds/Allgs Chart Reviewed, Consent Obtained/Reviewed and Anes Risks/Benef Reviewed Patient Risk: Intermediate Procedure Risk: Low Anesthetic Plan Anesthetic Plan: MAC: Disposition: Standard PACU
[2023-10-20 12:01] VITALS: BMI 33.1
[2023-10-20 12:13] VITALS: BP 141/89; PULSE 63; RESP 16; TEMP 36.9; O2SAT 97
--- NOTE | 2023-10-20 12:25 | MHC.SHP ---
Pre-Procedural Eval Section A - 24 Hr Update-Section A only Date of Service: 10/20/23 Section B - Complete if H&P > 30 days Chief Complaint: Gastro-esophageal reflux disease without esophagit Details of Present Illness: Hiatal hernia Relevant Family History (Specify if Yes): No Relevant Social History: None Present Medications: None History of Previous Operations: Relevant previous surgery/procedure and date(s) (lap sleeve gastrectomy) Allergies: Allergies Allergy/AdvReac Type Severity Reaction Status Date / Time pravastatin Allergy Severe Blister Verified 10/20/23 12:04 Sulfa (Sulfonamide Allergy Severe Itching Verified 10/20/23 12:04 Antibiotics) Review of Systems Sugical H&P ROS: Negative: Constitution, Cardiovascular, Respiratory, Neurological, Psychiatric, Hem-Onc, Allergic/Immunologic, Gastrointestinal, Genitourinary, Musculoskeletal, Integumentary, Endocrine and Eyes/Ears/Nose/Throat Exam Surgical H&P Exam: Normal: HEENT, Normal: Heart, Normal: Lungs, Normal: Extremities, Normal: Abdomen, Normal: Skin and Normal: Neurological Plan Diagnosis/Plan: Unchanged (EGD to assess the hiatal hernia she has. Risks of bleeding and perforation were discussed with the patient and she is in agreement with the plan.) I have reviewed the history and physical and performed a pertinent physical examination on my patient. No changes have occurred unless specified. Time Spent With Patient Time: Total time managing care of this patient today ____ minutes.
[2023-10-20] MEDS: Lactated Ringers 1,000 ML 80 ML IVCONT (12:32)
--- NOTE | 2023-10-20 12:36 | PM.OP ---
Brief Operative Note Date of Service: 10/20/23 Pre-op diagnosis: Hiatal hernia Post-op diagnosis: same Procedure: PROCEDURE DATE: 05/11/2019 PREOPERATIVE DIAGNOSIS: GERD, s/p sleeve gastrectomy POSTOPERATIVE DIAGNOSIS: ?Same as above. 1) redundant proximal sleeve, 2) short sleeve, 3) functional narrowing at the incisura angularis PROCEDURE: Ugzdcbjr-[id number] with biopsies Surgeon: ?Guanako Rowe M.D.. Ph.D. Numerical Control Machine Operator: None ? Anesthesia: IV sedation Estimated blood loss: ?Minimal FINDINGS AND PROCEDURE: ? OPERATIVE INDICATIONS: ?The patient is a 63 year old female known to me who underwent a laparoscopic sleeve gastrectomy at [facility]. The patient had poor weight loss so far and has a large hiatal hernia. Based on this information I recommended an upper endoscopy to evaluate the patient's symptoms. Risks and complications of the surgery were discussed with the patient in advance particularly the possibility of perforation or bleeding that may require surgical intervention. The patient understood the risks and was in agreement with the plan. ? PROCEDURE: After informed consent was obtained by the patient, the patient was ?transferred to the Operating Room and was placed in the supine position.? After successful induction of IV sedation, a mouth block was inserted and the patient was placed in the left lateral decubitus position. An upper endoscopy was performed next, the oropharynx and esophagus appeared within the normal limits. There was no hiatal hernia. The z-line was smooth. Two biopsies were obtained from the distal esophagus 2-3 cm proximal to the GE junction and two additional biopsies from the GE junction. The sleeve was entered. There was moderate proximal redundancy. There was no gastritis. There was no stricture or ulcer. Biopsies were obtained from the proximal/distal sleeve as well as the antrum. No significant bleeding was noted from any of the biopsy sites. The sleeve was short. There was a functional narrowing at the incisura angularis which required some negotiation of the scope to go through. The scope was then advanced into the duodenum which appeared to be normal as well. At that point the duodenum ?and the sleeve were decompressed and the scope was withdrawn from the patient's mouth. The patient extubated and was transferred in stable condition to the Recovery Room for further care. I was present and performed all steps of the procedure. There were no residents to assist with this case. Guanako Rowe M.D., Ph.D. Surgeon: Jeremi Rowe MD Anesthesia: MAC Was an Numerical Control Machine Operator used for this Procedure?: No Estimated blood loss (mL): 0 IV fluids (mL): 400 Urine output (mL): 0 (No Diallo to record output) Pathology: other (1) antrum x1, 2) proximal sleeve/gastric fundus x1, 3) distal sleeve x1 4) EGJ x2, 5) distal esophagus x2) Condition: stable Disposition: PACU
[2023-10-20 13:42] VITALS: BP 129/73; PULSE 63; RESP 20; TEMP 36.2; O2SAT 96
[2023-10-20 13:54] VITALS: BP 128/77; PULSE 57; RESP 20; TEMP 36.1; O2SAT 99
== END 2023-10-20 14:14 | disposition home or self-care (01) ==
PROVIDERS: PCP Internal Medicine Geriatric Medicine; Visit Provider Surgery
PROC: 0DJ08ZZ Inspection of Upper Intestinal Tract, Via Natural or Artificial Opening Endoscopic (ICD-10-PCS; CPT 43235; principal; 2023-10-20 12:30)
DX: K21.9 Gastro-esophageal reflux disease without esophagitis (principal); Z98.84 Bariatric surgery status; K44.9 Diaphragmatic hernia without obstruction or gangrene; E78.5 Hyperlipidemia, unspecified; E03.9 Hypothyroidism, unspecified; Z85.850 Personal history of malignant neoplasm of thyroid; J45.909 Unspecified asthma, uncomplicated; F41.8 Other specified anxiety disorders; R56.9 Unspecified convulsions; G89.29 Other chronic pain; M54.9 Dorsalgia, unspecified; Z79.899 Other long term (current) drug therapy; Z88.2 Allergy status to sulfonamides; Z88.8 Allergy status to other drugs, medicaments and biological substances; Z98.890 Other specified postprocedural states; Z87.891 Personal history of nicotine dependence; Z56.0 Unemployment, unspecified
CPT/HCPCS: 43239; 88305; 88313; 88342; J2704

== ENCOUNTER → 2023-10-20 11:10 | Outpatient (BNV) | payer MEDICARE, MEDICAID, SELFPAY | PROVIDERS: PCP Internal Medicine Geriatric Medicine; Visit Provider Surgery | DX: K21.9 Gastro-esophageal reflux disease without esophagitis (principal); K95.89 Other complications of other bariatric procedure | CPT/HCPCS: 43239 ==

== ENCOUNTER 2023-10-26 12:31 | Outpatient (AMB) | payer MEDICARE, MEDICAID, SELFPAY ==
--- NOTE | 2023-10-26 12:33 | A.OFFVIS_ITS ---
Vital Signs 10/26/23 12:44 Height 5 ft 7 in Weight 207 lb 3.752 oz BMI 32.5 BP 126/70 Blood Pressure Location Lt brachial Position Sitting Pulse 74 Intake Visit Reasons: follow up diarrhea Intake Note: Coleen presents in office today for a scheduled FUV to discuss sx and a possible colo s/p CC: Coleen was rx'd sucralfate at their last office visit. She states she is having difficulty breathing. She states she took the dulcolax - she had not gone to the bathroom since she had her EGD. Her appetite has not been the same either. Line Maintainer Section Required: No Allergies pravastatin Allergy (Severe, Verified 10/26/23 12:48) Blister Sulfa (Sulfonamide Antibiotics) Allergy (Severe, Verified 10/26/23 12:48) Itching HPI HPI follow up diarrhea: Details: LAST VISIT: Paraesophageal hernia Constipation GERD (gastroesophageal reflux disease) Postprandial epigastric pain Plan Patient will continue avoiding dietary triggers. Will refer to bariatric surgery. Eat small meals and more often. Continue omeprazole twice a day. Will add sucralfate at bedtime. Patient will follow-up in the office in 2 months to discuss colonoscopy patient will most likely have upper endoscopy done by Dr. Rowe and if not we will send her for upper endoscopy as well. Patient has the procedure scheduled for November 10. Patient is agreeable to this plan and verbalizes understanding of instructions. She was given the ask questions and all questions answered ? Thank you for allowing me to participate in her care Medications New sucralfate 1 g PO BEDTIME 30 tabs 1RF R19.7 BARIATRIC SURGERY NOTE 10/20/2023 An upper endoscopy was performed next, the oropharynx and esophagus appeared within the normal limits. There was no hiatal hernia. The z-line was smooth. Two biopsies were obtained from the distal esophagus 2-3 cm proximal to the GE junction and two additional biopsies from the GE junction. The sleeve was entered. There was moderate proximal redundancy. There was no gastritis. There was no stricture or ulcer. Biopsies were obtained from the proximal/distal sleeve as well as the antrum. No significant bleeding was noted from any of the biopsy sites. The sleeve was short. There was a functional narrowing at the incisura angularis which required some negotiation of the scope to go through. The scope was then advanced into the duodenum which appeared to be normal as well. At that point the duodenum ?and the sleeve were decompressed and the scope was withdrawn from the patient's mouth. TODAY'S VISIT: Patient is here today for follow-up. Patient reports that she continues to feel nauseous, has frequent shortness of breath and constipation since she went for upper endoscopy. During the procedure as mentioned above in bariatric surgeon's note that was no hernia noted. Upper endoscopy was performed no surgical intervention done at that time. Recommendation will be made at the follow-up appointment. Patient denies any dysphagia or odynophagia. Denies dyspepsia. Currently taking sucralfate at bedtime. Patient denies any other GI concerning symptoms. [facility] Medical History Kidney stones Seizures Anxiety Depression Hyperlipidemia Osteoporosis Renal calculi Vitamin D deficiency History of thyroid cancer Hypothyroidism Chronic back pain Insomnia Diarrhea Osteoarthritis Anxiety and depression C. difficile colitis Asthma Hernia Surgical History H/O LEEP H/O lithotripsy History of hernia surgery H/O adenoidectomy History of tonsillectomy S/P panniculectomy H/O tubal ligation History of appendectomy H/O thyroidectomy Gastric bypass status for obesity Family History Mother Graves disease Social History Household Members: Spouse Housing: House Do you presently have visiting nurse or other home services: No Patient Tobacco Use Status: Former Tobacco user Cigarettes Per Day: 2 Years Smoked: 10 years service: No Current occupational status: unemployed Female Reproductive History Menstrual Age of Menarche: 14 Review of Systems Const Denies weight gain and Denies weight loss ENT Reports no additional complaints, Denies dysphagia and Denies odynophagia Card Reports no additional complaints Resp Reports no additional complaints GI Reports abdominal pain (Epigastric), Denies belching, Denies melena, Reports bloating, Denies change in bowel habits, Reports constipation, Denies dysphagia, Denies excessive flatus, Denies dyspepsia, Reports heartburn, Denies diarrhea, Denies loose stools, Reports nausea, Denies odynophagia and Denies vomiting Reports no additional complaints Musc Reports no additional complaints Neuro Reports no additional complaints Psych Reports no additional complaints Endo Reports no additional complaints Physical Exam Vital Signs: Last Vital Signs Pulse 74 10/26/23 12:44 BP 126/70 10/26/23 12:44 BMI result Body Mass Index 32.5 Const General: healthy appearing and no acute distress Nutritional Appearance: well nourished and obese Orientation/consciousness: patient oriented x3 Resp Effort & Inspection: normal respiratory effort, able to speak in complete sentences, no tracheal deviation and symmetric chest movement Auscultation: clear to auscultation bilaterally Cardio Rate: regular rate GI Inspection: No distended and Yes obesity Palpation (GI): Soft to palpation, not firm, nontender and No hepatosplenomegaly present Auscultation: normal bowel sounds General: Yes no CVA tenderness Back/Spine/Pelvis Back: no CVA tenderness Skin General skin exam: elasticity normal, turgor normal and dry skin Neuro General: patient oriented x3 Psych Appearance: grossly normal Mental Status: mental status grossly normal Assessment & Plan Assessment & Plan (1) Paraesophageal hernia: Code(s): K44.9 - Diaphragmatic hernia without obstruction or gangrene Category: Medical (2) Constipation: Code(s): K59.00 - Constipation, unspecified Qualifiers: Constipation type: slow transit constipation Qualified Code(s): K59.01 - Slow transit constipation (3) GERD (gastroesophageal reflux disease): Code(s): K21.9 - Gastro-esophageal reflux disease without esophagitis Qualifiers: Esophagitis presence: without esophagitis Qualified Code(s): K21.9 - Gastro-esophageal reflux disease without esophagitis (4) Postprandial epigastric pain: Code(s): R10.13 - Epigastric pain Plan Continue avoiding dietary triggers, follow bariatric surgeon's recommendation for amount and frequency of meals. Omeprazole in the morning before breakfast. Staying upright for minimum 3 hours after meals discussed with patient. Samuels cralfate at bedtime. Zofran on as needed basis. Follow-up in the office as scheduled. She will keep her existing appointment, however patient was encouraged to call the office if she will continue to have GI concerning symptoms. She is agreeable to this plan and verbalizes understanding of instructions. She was given the opportunity to ask questions and all questions answered. Thank you for allowing me to participate in her care Orders: Orders Phosphorus 10/26/23 E83.39 - Other disorders of phosphorus metabolism Medications: Changed From omeprazole 40 mg PO BID To omeprazole 40 mg PO DAILY 30 caps 0RF Refilled ondansetron 4 mg PO Q8H PRN 14 tabs 0RF nausea and vomiting Coding Level of Care Code Est Pt Level 3 (53358) Diagnoses Paraesophageal hernia K44.9 Slow transit constipation K59.01 Constipation type: slow transit constipation Gastroesophageal reflux disease without esophagitis K21.9 Esophagitis presence: without esophagitis Postprandial epigastric pain R10.13 Time Spent (min) 30 Comment 20 minutes spent with patient and additional 10 minutes spent reviewing her records
[2023-10-26 12:44] VITALS: BP 126/70; PULSE 74; BMI 32.5
== END 2023-10-26 13:28 | disposition home or self-care (01) ==
PROVIDERS: PCP Internal Medicine Geriatric Medicine; Visit Provider Nurse Practitioner Family
DX: K44.9 Diaphragmatic hernia without obstruction or gangrene (principal); K59.01 Slow transit constipation; K21.9 Gastro-esophageal reflux disease without esophagitis; R10.13 Epigastric pain
CPT/HCPCS: 99213

== ENCOUNTER 2023-10-26 16:29 | Outpatient (REF) | payer MEDICARE, MEDICAID, SELFPAY ==
--- NOTE | ~2023-10-26 | CT_ITS ---
EXAMINATION: CT CHEST, ABDOMEN AND PELVIS WITHOUT CONTRAST CLINICAL INFORMATION: Diaphragmatic hernia without obstruction and gangrene. COMPARISON: Abdominal ultrasound 10/06/2023 CT abdomen/pelvis 10/11/2020 TECHNIQUE: Multidetector volumetric imaging was performed of the chest, abdomen and pelvis without intravenous contrast. Sagittal and coronal reformatted images were obtained on the technologist's workstation. This CT examination was performed using dose optimization techniques as appropriate, variously including the following: *Automated exposure control *Adjustment of mA and/or kV according to patient size (this includes techniques or standardized protocols for targeted exams where dose is matched to indication/reason for exam; i.e. extremities or head) *Use of iterative reconstruction technique DLP: 208 mGy-cm FINDINGS: CHEST: LUNGS: No suspicious pulmonary nodule. No focal consolidation. Central airways are patent. PLEURA: No pleural effusion. MEDIASTINUM: The thyroid gland is not visualized. No bulky axillary, hilar or mediastinal lymphadenopathy. Great vessels are of normal caliber. Heart size is normal. No pericardial effusion. Moderate hiatal hernia. Postsurgical changes of the stomach. CORONARY ARTERY CALCIFICATION: No coronary artery calcification appreciated. ABDOMEN AND PELVIS: LIVER AND BILIARY TREE: The noncontrast liver is normal in size and contour. No biliary ductal dilatation. GALLBLADDER: Unremarkable. PANCREAS: Unremarkable. SPLEEN: Unremarkable. ADRENAL GLANDS: Unremarkable. KIDNEYS AND URETERS: Symmetric in size. Exophytic cyst lower pole right kidney. No further imaging follow-up is needed. 1.2 cm angiomyolipoma lower pole right kidney. 2 mm nonobstructing calculus midpole left kidney. Punctate nonobstructive calculus lower pole left kidney. No hydronephrosis or perinephric fluid collection. GASTROINTESTINAL TRACT: Small and large bowel loops are of normal caliber. No small bowel obstruction. Moderate fecal retention in the colon. Diverticular disease of the sigmoid colon. VASCULAR: Normal caliber abdominal aorta. LYMPH NODES: No bulky lymphadenopathy. FREE FLUID: No free fluid. BLADDER: Decompressed. PELVIC VISCERA: Right ovary not visualized. 2.2 cm left ovarian cyst unchanged from prior. OSSEOUS STRUCTURES: No destructive bone lesions. OTHER: Fat-containing right inguinal hernia. CT/CT abdomen pelvis wo IV con IMPRESSION: No acute abnormality in the chest, abdomen or pelvis. Moderate hiatal hernia similar to 10/11/2020.
== END 2023-10-26 16:30 | disposition home or self-care (01) ==
LOC: HO.CT 16:29
PROVIDERS: PCP Internal Medicine Geriatric Medicine; Visit Provider Surgery
DX: K44.9 Diaphragmatic hernia without obstruction or gangrene (principal); E78.5 Hyperlipidemia, unspecified; J45.909 Unspecified asthma, uncomplicated; K59.01 Slow transit constipation; K21.9 Gastro-esophageal reflux disease without esophagitis; R10.13 Epigastric pain
CPT/HCPCS: 71250; 74176; 99212

== ENCOUNTER 2023-11-15 13:19 | Outpatient (AMB) | payer MEDICARE, MEDICAID, SELFPAY ==
--- NOTE | 2023-11-15 14:21 | AM.OFFVISNUR ---
Intake Visit Reasons: Evenity #6 Allergies pravastatin Allergy (Severe, Verified 10/26/23 12:48) Blister Sulfa (Sulfonamide Antibiotics) Allergy (Severe, Verified 10/26/23 12:48) Itching Office Meds romosozumab-aqqg 210 mg/2.34 mL(105 mg/1.17 mL x2)subcutaneous syringe Performing Provider: Oz Perez MD Performing Location: [facility] [place] [facility] Administered by: Kika Carl LPN on 11/15/23 14:21 Dose Route Admin Location Dispensed Lot Number Expiration Date [employer] 210 mg subcut Bilateral upper arms 2.34 mL [id number] 02/23/26 [facility] Assessment & Plan Assessment & Plan Orders: Orders AMB Romosozumab Injection Patient Supplied Today M81.0 - Age-related osteoporosis without current pathological fracture Medications: New romosozumab-aqqg 210 mg (2.34 mL) subcut ONCE 2.34 mL 0RF M81.0 - Age-related osteoporosis without current pathological fracture
== END 2023-11-15 14:19 | disposition home or self-care (01) ==
PROVIDERS: PCP Internal Medicine Geriatric Medicine
DX: M81.0 Age-related osteoporosis without current pathological fracture (principal)

== ENCOUNTER → 2023-11-15 13:19 | Outpatient (BNVA) | payer MEDICARE, MEDICAID, SELFPAY | PROVIDERS: PCP Internal Medicine Geriatric Medicine | DX: M81.0 Age-related osteoporosis without current pathological fracture (principal) | CPT/HCPCS: 96372; J3111 ==

== ENCOUNTER 2023-11-22 10:30 | Day surgery (SDC) | payer MEDICARE, MEDICAID, SELFPAY ==
[2023-11-22 10:50] VITALS: BMI 32.1
[2023-11-22 11:05] VITALS: BP 159/85; PULSE 70; RESP 16; TEMP 36.2; O2SAT 100
[2023-11-22] MEDS: Lactated Ringers 1,000 ML 100 ML IVCONT (11:17)
--- NOTE | 2023-11-22 11:27 | MHC.SHP ---
Pre-Procedural Eval Section A - 24 Hr Update-Section A only Date of Service: 11/22/23 Section B - Complete if H&P > 30 days Chief Complaint: colo screening Relevant Family History (Specify if Yes): No Relevant Social History: None Present Medications: see Short Stay Collaborative assessment Medical History: Significant History (Kidney stones Seizures Anxiety Depression Hyperlipidemia Osteoporosis Renal calculi Vitamin D deficiency History of thyroid cancer Hypothyroidism Chronic back pain Insomnia Diarrhea Osteoarthritis Anxiety and depression C. difficile colitis Asthma Hernia) History of Previous Operations: Relevant previous surgery/procedure and date(s) (H/O LEEP H/O lithotripsy History of hernia surgery H/O adenoidectomy History of tonsillectomy S/P panniculectomy H/O tubal ligation History of appendectomy H/O thyroidectomy Gastric bypass status for obesity) Allergies: Allergies Allergy/AdvReac Type Severity Reaction Status Date / Time pravastatin Allergy Severe Blister Verified 10/26/23 12:48 Sulfa (Sulfonamide Allergy Severe Itching Verified 10/26/23 12:48 Antibiotics) Review of Systems Sugical H&P ROS: Negative: Constitution, Cardiovascular, Respiratory, Neurological, Psychiatric, Hem-Onc, Allergic/Immunologic, Gastrointestinal, Genitourinary, Musculoskeletal, Integumentary, Endocrine and Eyes/Ears/Nose/Throat Exam Surgical H&P Exam: Normal: HEENT, Normal: Heart, Normal: Lungs, Normal: Extremities, Normal: Abdomen, Normal: Skin and Normal: Neurological Plan Diagnosis/Plan: Unchanged I have reviewed the history and physical and performed a pertinent physical examination on my patient. No changes have occurred unless specified. Time Spent With Patient Time: Total time managing care of this patient today ____ minutes.
--- NOTE | 2023-11-22 11:30 | HO.ANESPROP2 ---
Documented by User: Vane Sharif NP 11/19/23 10:43 HPI - Anesthesia Eval Consult details Narrative: 63yo F for Upper Endoscopy and Colonoscopy s/p EGD 09/2023 with MAC [facility] Active Problems Active Problems: All Active Problems Vitamin B1 deficiency (Acute) BMI 33.0-33.9,adult (Acute) Obesity (Acute) Paraesophageal hernia (Acute) Complex ovarian cyst (Acute) Ovarian cyst (Acute) Uterine myoma (Acute) Leucocytosis (Acute) Seizures (Acute) Insomnia (Acute) Anxiety (Acute) Depression (Acute) Hyperlipidemia (Acute) Asthma (Acute) Osteoarthritis (Acute) S/P panniculectomy (Acute) Osteoporosis (Acute) Renal calculi (Acute) Vitamin D deficiency (Acute) Hypothyroidism (Acute) History of thyroid cancer (Acute) Past Medical History Medical History Kidney stones Seizures Anxiety Depression Hyperlipidemia Osteoporosis Renal calculi Vitamin D deficiency History of thyroid cancer Hypothyroidism Chronic back pain Insomnia Diarrhea Osteoarthritis Anxiety and depression C. difficile colitis Asthma Hernia Family History Family History Mother Graves disease Family history of problems with anesthesia: No Surgical History Surgical History H/O LEEP H/O lithotripsy History of hernia surgery H/O adenoidectomy History of tonsillectomy S/P panniculectomy H/O tubal ligation History of appendectomy H/O thyroidectomy Gastric bypass status for obesity History of Problems with Anesthesia: No Social History Social History Household Members: Spouse Housing: House Do you presently have visiting nurse or other home services: No Patient Tobacco Use Status: Former Tobacco user Cigarettes Per Day: 2 Years Smoked: 10 years Use of substances other than those prescribed or required for medical reasons: Yes Substance Use Type Other:: marijuana edibles Are you DNR?: No Advance Directives: No Advance Directives Information Provided: Yes service: No Current occupational status: unemployed Meds Allergies Allergy/AdvReac Type Severity Reaction Status Date / Time pravastatin Allergy Severe Blister Verified 10/26/23 12:48 Sulfa (Sulfonamide Allergy Severe Itching Verified 10/26/23 12:48 Antibiotics) Home Medications ?Medication ?Instructions ?Recorded ?Confirmed ?Last Taken ?Type buspirone 30 mg tablet 30 mg PO BID 10/11/20 09/16/23 10/10/20 21:00 History carisoprodol 350 mg tablet 350 mg PO QID 10/11/20 09/16/23 10/10/20 21:00 History ezetimibe 10 mg tablet 10 mg PO DAILY 10/11/20 09/16/23 10/10/20 21:00 History venlafaxine 150 mg 150 mg PO BEDTIME 10/11/20 09/16/23 10/10/20 21:00 History capsule,extended release 24 hr venlafaxine 75 mg capsule,extended 75 mg PO BEDTIME 10/11/20 09/16/23 10/10/20 21:00 History release 24 hr zolpidem 10 mg tablet 10 mg PO BEDTIME PRN insomnia 10/11/20 09/16/23 10/10/20 21:00 History albuterol sulfate 90 mcg/actuation 2 puff PO Q4-6H PRN asthma 04/23/21 09/16/23 Unknown History aerosol inhaler diclofenac sodium 1 % topical gel g topical BID PRN 08/08/21 09/16/23 Unknown History oxcarbazepine 150 mg tablet 150 mg PO BID 08/08/21 09/16/23 10/20/23 History fluticasone propionate 50 spray intranasal 09/14/23 09/16/23 Unknown History mcg/actuation nasal spray,suspension loratadine 10 mg tablet 10 mg PO QAM 09/14/23 09/16/23 Unknown History Exam Narrative Narrative: EKG 09/2023 Vent. Rate : 057 BPM Atrial Rate : 057 BPM P-R Int : 156 ms QRS Dur : 086 ms QT Int : 450 ms P-R-T Axes : 049 005 034 degrees QTc Int : 438 ms Sinus bradycardia Otherwise normal ECG No previous ECGs available Assessment and Plan Assessment Anesthesia Assessment: Chart Reviewed Final Anesthetic Review Family History of Problems with Anesthesia: No History of Problems with Anesthesia: No Documented by User: Kendra Fatima DO 11/22/23 11:38 [facility] Past Medical History Medical History Kidney stones Seizures Anxiety Depression Hyperlipidemia Osteoporosis Renal calculi Vitamin D deficiency History of thyroid cancer Hypothyroidism Chronic back pain Insomnia Diarrhea Osteoarthritis Anxiety and depression C. difficile colitis Asthma Hernia Family History Family History Mother Graves disease Family history of problems with anesthesia: No Surgical History Surgical History H/O LEEP H/O lithotripsy History of hernia surgery H/O adenoidectomy History of tonsillectomy S/P panniculectomy H/O tubal ligation History of appendectomy H/O thyroidectomy Gastric bypass status for obesity History of Problems with Anesthesia: No Social History Social History Household Members: Spouse Housing: House Do you presently have visiting nurse or other home services: No Patient Tobacco Use Status: Former Tobacco user Cigarettes Per Day: 2 Years Smoked: 10 years Use of substances other than those prescribed or required for medical reasons: Yes Substance Use Type Other:: marijuana edibles Are you DNR?: No Advance Directives: No Advance Directives Information Provided: Yes service: No Current occupational status: unemployed Meds Allergies Allergy/AdvReac Type Severity Reaction Status Date / Time pravastatin Allergy Severe Blister Verified 10/26/23 12:48 Sulfa (Sulfonamide Allergy Severe Itching Verified 10/26/23 12:48 Antibiotics) Home Medications ?Medication ?Instructions ?Recorded ?Confirmed ?Last Taken ?Type buspirone 30 mg tablet 30 mg PO BID 10/11/20 09/16/23 10/10/20 21:00 History carisoprodol 350 mg tablet 350 mg PO QID 10/11/20 09/16/23 10/10/20 21:00 History ezetimibe 10 mg tablet 10 mg PO DAILY 10/11/20 09/16/23 10/10/20 21:00 History venlafaxine 150 mg 150 mg PO BEDTIME 10/11/20 09/16/23 10/10/20 21:00 History capsule,extended release 24 hr venlafaxine 75 mg capsule,extended 75 mg PO BEDTIME 10/11/20 09/16/23 10/10/20 21:00 History release 24 hr zolpidem 10 mg tablet 10 mg PO BEDTIME PRN insomnia 10/11/20 09/16/23 10/10/20 21:00 History albuterol sulfate 90 mcg/actuation 2 puff PO Q4-6H PRN asthma 04/23/21 09/16/23 Unknown History aerosol inhaler diclofenac sodium 1 % topical gel g topical BID PRN 08/08/21 09/16/23 Unknown History oxcarbazepine 150 mg tablet 150 mg PO BID 08/08/21 09/16/23 10/20/23 History fluticasone propionate 50 spray intranasal 09/14/23 09/16/23 Unknown History mcg/actuation nasal spray,suspension loratadine 10 mg tablet 10 mg PO QAM 09/14/23 09/16/23 Unknown History Exam Exam Date and Time: November 22, 2023 1130 Height,Weight and Vital Signs: Height 5 ft 7 in Weight 93.043 kg Vital Signs Temperature 97.2 F 11/22/23 11:05 Pulse Rate 70 11/22/23 11:05 Respiratory Rate 16 11/22/23 11:05 Blood Pressure 159/85 H 11/22/23 11:05 Pulse Oximetry 100 11/22/23 11:05 Oxygen Delivery Method Room Air 11/22/23 11:05 Temperature 97.2 F 11/22/23 11:05 Pulse Rate 70 11/22/23 11:05 Respiratory Rate 16 11/22/23 11:05 Blood Pressure 159/85 H 11/22/23 11:05 Pulse Oximetry 100 11/22/23 11:05 Oxygen Delivery Method Room Air 11/22/23 11:05 Airway Mallampati Class: I TM Dist: >3cm Neck ROM: Full Loose/Missing/Broken Teeth: No (patient denies any loose or broken teeth) Heart: S1S2 Lungs: CTAB Assessment and Plan Assessment Anesthesia Assessment: Anesthesia Plan Discussed and Chart Reviewed Final Anesthetic Review Family History of Problems with Anesthesia: No History of Problems with Anesthesia: No NPO: Yes ASA Class: II Final Preanesthetic Review: No Changes in Pt Med Stat, Meds/Allgs Chart Reviewed, Consent Obtained/Reviewed and Anes Risks/Benef Reviewed Patient Risk: Low Procedure Risk: Low Anesthetic Plan Anesthetic Plan: MAC: and Agree w/ Assess. and Plan Disposition: Standard PACU
[2023-11-22 12:44] VITALS: BP 125/70; PULSE 69; RESP 16; TEMP 36.6; O2SAT 97
--- NOTE | 2023-11-22 12:44 | P.OPN-COLO_ITS ---
Colonoscopy Operative Note Operative Note Date of Service: 11/22/23 Narrative: Operative Information Procedure Description: Colonoscopy Indication: screening Anesthesia: MAC COLONOSCOPY Instrument: Olympus variable stiffness pediatric scope 190L Colonoscopy Monitoring: Vital signs and clinical assessment, continuous EKG monitoring, Pulse oximetry, Carbon Dioxide monitoring and blood pressure monitoring were done throughout the procedure. Colon withdrawal time was 12 minutes. Procedure: The patient was placed in the left lateral decubitis position and pre-procedure medications were administered. After a digital rectal examination of the ano-rectum, the video colonoscope was inserted into the rectum and advanced through the colon to the cecum/TI. The colonoscope was slowly withdrawn in a retrograde panoramic fashion and the colon mucosa was carefully examined including a retroflexed view of the rectum. Findings and interventions are described below. Procedure Difficulty: easy Findings: Terminal Ileum-normal Cecum:normal Ascending Colon: normal Transverse Colon -normal Descending Colon:normal Sigmoid Colon: mild to moderate diverticulosis Rectum: Retroflexion with small internal hemorrhoids seen, grade I Anorectum - normal Intervention: none Colon preparation: [place] Bowel Preparation Scale Right colon; 2 Transverse colon: 2 Left colon; 2 (0 = Unprepared colon segment with mucosa not seen due to solid stool that cannot be cleared. 1 = Portion of mucosa of the colon segment seen, but other areas of the colon segment not well seen due to staining, residual stool and/or opaque liquid. 2 = Minor amount of residual staining, small fragments of stool and/or opaque liquid, but mucosa of colon segment seen well. 3 = Entire mucosa of colon segment seen well with no residual staining, small fragments of stool or opaque liquid) Impression and Post Procedure Diagnosis: diverticulosis internal hemorrhoids Plan: High fiber diet leaflet Avoid straining at stool, epsom salts and sitz bath, anusol supps or cream Repeat Colonoscopy in 10 years or earlier if clinically indicated Above findings were reviewed with the patient and relevant handouts were provided if indicated.
[2023-11-22 12:59] VITALS: BP 120/76; PULSE 64; RESP 16; O2SAT 99
[2023-11-22 13:14] VITALS: BP 135/72; PULSE 58; RESP 14; O2SAT 99
[2023-11-22 13:25] VITALS: BP 135/72; PULSE 57; RESP 16; TEMP 36.3; O2SAT 100
== END 2023-11-22 14:19 | disposition home or self-care (01) ==
PROVIDERS: PCP Internal Medicine Geriatric Medicine; Visit Provider Internal Medicine Gastroenterology
PROC: (CPT G0121; principal; 2023-11-22 12:50)
DX: Z12.11 Encounter for screening for malignant neoplasm of colon (principal); K57.30 Diverticulosis of large intestine without perforation or abscess without bleeding; K64.0 First degree hemorrhoids; K59.01 Slow transit constipation; R10.13 Epigastric pain; K21.9 Gastro-esophageal reflux disease without esophagitis; K44.9 Diaphragmatic hernia without obstruction or gangrene; R56.9 Unspecified convulsions; J45.909 Unspecified asthma, uncomplicated; E55.9 Vitamin D deficiency, unspecified; E03.9 Hypothyroidism, unspecified; Z85.850 Personal history of malignant neoplasm of thyroid; F41.8 Other specified anxiety disorders; Z88.2 Allergy status to sulfonamides; Z87.442 Personal history of urinary calculi; Z88.8 Allergy status to other drugs, medicaments and biological substances; Z87.891 Personal history of nicotine dependence; Z98.890 Other specified postprocedural states; Z98.84 Bariatric surgery status; Z56.0 Unemployment, unspecified
CPT/HCPCS: G0121; J2250; J2704

== ENCOUNTER → 2023-11-22 10:30 | Outpatient (BNV) | payer MEDICARE, MEDICAID, SELFPAY | PROVIDERS: PCP Internal Medicine Geriatric Medicine; Visit Provider Internal Medicine Gastroenterology | DX: Z12.11 Encounter for screening for malignant neoplasm of colon (principal); K57.30 Diverticulosis of large intestine without perforation or abscess without bleeding; K64.0 First degree hemorrhoids | CPT/HCPCS: G0121 ==

== ENCOUNTER 2023-12-06 14:46 | Outpatient (AMB) | payer MEDICARE, MEDICAID, SELFPAY ==
--- NOTE | 2023-12-06 14:34 | A.OFFVIS_ITS ---
VS Expanded 12/06/23 14:41 Height 5 ft 7 in Weight 202 lb BMI 31.6 Intake Visit Reasons: TV Pre Op Hiatal Hernia Repair 12/15/23 Online Media Director Required: No Allergies pravastatin Allergy (Severe, Verified 10/26/23 12:48) Blister Sulfa (Sulfonamide Antibiotics) Allergy (Severe, Verified 10/26/23 12:48) Itching Medication List - Last Reconciled 12/06/23 by NIKOLAI Macario albuterol sulfate 90 mcg/actuation 2 puffs PO Q4-6H PRN bisacodyl (Dulcolax (bisacodyl)) 10 mg (2 x 5 mg) PO BEDTIME bisacodyl (Dulcolax (bisacodyl)) 10 mg PO DAILY buspirone 30 mg PO BID carisoprodol 350 mg PO QID diclofenac sodium 1% grams topical BID PRN docusate sodium 100 mg PO BEDTIME ezetimibe 10 mg PO DAILY fluticasone propionate 50 mcg/actuation sprays intranasal hydrochlorothiazide 12.5 mg PO DAILY levothyroxine Take 1 tablet by mouth once daily loratadine 10 mg PO QAM magnesium citrate 296 mL PO ONCE omeprazole 40 mg PO DAILY ondansetron 4 mg PO Q8H PRN oxcarbazepine 150 mg PO BID romosozumab-aqqg (Evenity) 210 mg (2.34 mL) subcut .q month sucralfate 1 g PO BEDTIME thiamine HCl (vitamin B1) 100 mg PO DAILY tramadol 50 mg PO TID PRN venlafaxine ER 75 mg PO BEDTIME venlafaxine ER 150 mg PO BEDTIME zolpidem 10 mg PO BEDTIME PRN HPI Comments Details: 63 yo female here for pre op appointment for scheduled HH repair on 12/15/23. Not consistent with her meal plan. Now with a sinus infection taking amoxacillin 2 more days left Current weight 202 pounds wakes at 10 am and bed at 10 pm Meal plan: Pure protein powder 2 scoops in 8 oz 1 % milk adding 1/2 banana, SF pudding protein bar Exercise plan: walking outside, 5 days per week, not tracking calories gym 3 x per week, water aerobics 45 min then swimming 20 laps. [facility] Medical History Kidney stones Seizures Anxiety Depression Hyperlipidemia Osteoporosis Renal calculi Vitamin D deficiency History of thyroid cancer Hypothyroidism Chronic back pain Insomnia Diarrhea Osteoarthritis Anxiety and depression C. difficile colitis Asthma Hernia Surgical History H/O LEEP H/O lithotripsy History of hernia surgery H/O adenoidectomy History of tonsillectomy S/P panniculectomy H/O tubal ligation History of appendectomy H/O thyroidectomy Gastric bypass status for obesity Family History Mother Graves disease Social History Household Members: Spouse Housing: House Do you presently have visiting nurse or other home services: No Patient Tobacco Use Status: Former Tobacco user Cigarettes Per Day: 2 Years Smoked: 10 years service: No Current occupational status: unemployed Female Reproductive History Menstrual Age of Menarche: 14 Assessment & Plan Assessment & Plan (1) Paraesophageal hernia: Code(s): K44.9 - Diaphragmatic hernia without obstruction or gangrene Category: Medical Plan: 1. Plan for laparoscopic hiatal hernia repair including upper GI endoscopy . Risks and complications were discussed in detail including possible conversion to an open procedure, anastomotic leak, bleeding requiring transfusion, small bowel obstruction, , DVT and pulmonary embolism, cardiac, or pulmonary complications, as cloud operations engineer complications such as anastomotic ulcer, insufficient weight loss and vitamin deficiencies. I emphasized the importance of close follow-up, adherence to instructions and good communication. So far she has proven to be an excellent communicator and very compliant with all our directions accomplishing a great weight loss. I believe that she is an excellent candidate and she is ready. 2. Preop prescriptions were provided and explained the purpose of each one. Need to be purchased preop. Zofran is for after surgery. 3. Bowel prep: please do 7 packets ?of Miralax mixing each one with an 8oz glass of water on 12/13/23 and the same amount on 12/14/23 4. Needs to purchase 1oz medicine cups . 5. Needs to purchase Children's liquid Tylenol for postop pain control. 6. Stop all the vitamins on 12/07/23. Avoid aspirin, motrin, Advil, Aleve, Ibuprofen, Naproxyn. Tylenol is OK. 7. Will do basic preop blood work-up on 12/07/23 fasting for 12 hours and is scheduled to see the Anesthesiologist prior to the day of surgery. 8. You must do the pre-op labs 9. Importance of adherence to postop follow-up and recommendations was underscored and she understands that. 10. Stop food and bars as of 12/07/23 and continue with 4 pure protein shakes (1 scoop in 8oz oat milk) at 10am-12pm, 2pm-4pm, (1/2 scoop in 8 oz oat milk) at 5pm-7pm, 8pm-10pm 11. Please take at the day of surgery the following medications:?none 12. Be sure to continue to send your weight measurements to Dr Rowe weekly, and the most important weight measurement to send him is the day of surgery. 13. Absolutely no smoking or vaping, or marijuana until the surgery and for at least the first 4 weeks. Only nicotine patches are allowed. 14. The patient's?medical?history has been reviewed and they are considered low risk for post op DVT and therefore DVT prophylaxis is not considered necessary. Travel after surgery was reviewed. The patient has not disclosed any travel plans during the first 30 days after surgery and they have been advised that within the first 30 days after surgery any bus, plane, train or car travel over 2 hours in duration is contraindicated due to the possibility of developing blood clots from immobility. Any travel, needs to include periods of ambulation of 10 minutes in duration every 2 hours.? Patient was instructed to discuss any plans for travel during this period with their bariatric surgeon.? Orders: Orders Comprehensive Met. Panel Today NIKOLAI Macario K44.9 - Diaphragmatic hernia without obstruction or gangrene, Z01.818 - Encounter for other preprocedural examination TSH reflex Free T4 Today NIKOLAI Macario K44.9 - Diaphragmatic hernia without obstruction or gangrene, Z01.818 - Encounter for other preprocedural examination Vitamin A Today NIKOLAI Macario K44.9 - Diaphragmatic hernia without obstruction or gangrene, Z01.818 - Encounter for other preprocedural examination C Reactive Protein Today NIKOLAI Macario K44.9 - Diaphragmatic hernia without obstruction or gangrene, Z01.818 - Encounter for other preprocedural examination Partial Thromboplastin Time Today NIKOLAI Macario K44.9 - Diaphragmatic hernia without obstruction or gangrene, Z01.818 - Encounter for other preprocedural examination Vitamin D 25-OH Total Today NIKOLAI Macario K44.9 - Diaphragmatic hernia without obstruction or gangrene, Z01.818 - Encounter for other preprocedural examination Zinc Today NIKOLAI Macario K44.9 - Diaphragmatic hernia without obstruction or gangrene, Z01.818 - Encounter for other preprocedural examination Hemoglobin A1c Today NIKOLAI Macario K44.9 - Diaphragmatic hernia without obstruction or gangrene, Z01.818 - Encounter for other preprocedural examination Prothrombin Time INR Today NIKOLAI Macario K44.9 - Diaphragmatic hernia without obstruction or gangrene, Z01.818 - Encounter for other preprocedural examination Vitamin B1 Today NIKOLAI Macario K44.9 - Diaphragmatic hernia without obstruction or gangrene, Z01.818 - Encounter for other preprocedural examination Lipid Panel Today NIKOLAI Macario K44.9 - Diaphragmatic hernia without obstruction or gangrene, Z01.818 - Encounter for other preprocedural examination Type and Screen Today NIKOLAI Macario K44.9 - Diaphragmatic hernia without obstruction or gangrene, Z01.818 - Encounter for other preprocedural examination Vitamin B12 Today NIKOLAI Macario K44.9 - Diaphragmatic hernia without obstruction or gangrene, Z01.818 - Encounter for other preprocedural examination Complete Blood Count Auto Diff Today NIKOLAI Macario K44.9 - Diaphragmatic hernia without obstruction or gangrene, Z01.818 - Encounter for other preprocedural examination Ferritin Today NIKOLAI Macario K44.9 - Diaphragmatic hernia without obstruction or gangrene, Z01.818 - Encounter for other preprocedural examination IRON PROFILE Today NIKOLAI Macario K44.9 - Diaphragmatic hernia without obstruction or gangrene, Z01.818 - Encounter for other preprocedural examination Medications: New ondansetron HCl 4 mg PO Q6H PRN 14 tabs 0RF nausea and vomiting NIKOLAI Macario polyethylene glycol 3350 (Miralax) mix one packet in 8 oz of water. Do 7 packets on 12/13/23 and repeat on 12/14/23 17 grams PO DAILY 14 ea 0RF NIKOLAI Macario Changed From bisacodyl (Dulcolax (bisacodyl)) Start taking 2 tablet every night 7 days before the procedure and 1 day before procedure take 4 tablets at noon time followed by mag. citrate 10 mg (2 x 5 mg) PO BEDTIME 16 tabs 0RF Z12.11 - Encounter for screening for malignant neoplasm of colon To bisacodyl (Dulcolax (bisacodyl)) Start taking 2 tablet every night 7 days before the procedure and 1 day before procedure take 4 tablets at noon time followed by mag. citrate 10 mg PO DAILY Z12.11 - Encounter for screening for malignant neoplasm of colon Lisa Salas, CAN FILLING AND CLOSING MACHINE TENDER-BC
[2023-12-06 14:41] VITALS: BMI 31.6
== END 2023-12-06 15:49 | disposition home or self-care (01) ==
LOC: HO.HBS 14:46
PROVIDERS: PCP Internal Medicine Geriatric Medicine; Visit Provider Physician Assistant Surgical
DX: K44.9 Diaphragmatic hernia without obstruction or gangrene (principal)
CPT/HCPCS: 99214

== ENCOUNTER → 2023-12-06 14:46 | Outpatient (BNVA) | payer MEDICARE, MEDICAID, SELFPAY | PROVIDERS: PCP Internal Medicine Geriatric Medicine; Visit Provider Physician Assistant Surgical | DX: K44.9 Diaphragmatic hernia without obstruction or gangrene (principal) | CPT/HCPCS: 99212 ==

== ENCOUNTER 2023-12-07 11:29 | Outpatient (REF) | payer MEDICARE, MEDICAID, SELFPAY ==
[2023-12-07 11:57] LABS: MANUAL DIFF FLAG NO
[2023-12-07 12:46] LABS: Basophils Percent Auto 0.8 % (0-2); Eosinophils Absolute Auto 0.1 X10*3/uL (0.0-0.4); Eosinophils Percent Auto 1.3 % (0-4); Hemoglobin 14.6 g/dl (12.0-16.0); Imm Gran Abs Auto 0.01 X10*3/uL (0.00-0.03); Imm Gran Pct Auto 0.2 % (0.0-0.4); Lymphocytes Absolute Auto 2.2 X10*3/uL (1.2-4.9); Mean Corpuscular HGB Conc 33.2 g/dl (31.0-35.0); Mean Corpuscular Hemoglobin 28.3 pg (27.0-33.0); Mean Corpuscular Volume 85.3 fL (80.0-98.0); Mean Platelet Volume 12.4 fL (9.4-12.3); Monocytes Absolute Auto 0.4 X10*3/uL (0.1-1.2); Monocytes Percent Auto 7.8 % (2-11); Neutrophils Absolute Auto 2.6 x10*3/uL (2.0-8.3); Neutrophils Percent Auto 48.9 % (45-73); Platelet Count 340 X10*3/uL (160-400); Red Blood Count 5.16 X10*6/uL (4.20-5.50); Red Cell Distribution Width 14.1 % (11.0-16.0); White Blood Count 5.3 X10*3/uL (4.8-10.8)
[2023-12-07 12:54] LABS: Estimated Average Glucose 111 mg/dL; Hemoglobin A1c % 5.5 % (<6.0)
[2023-12-07 13:11] LABS: Prothrombin Time 11.7 SEC (11.1-13.3)
[2023-12-07 13:13] LABS: Partial Thromboplastin Time 28.2 SEC (26.0-36.8)
[2023-12-07 14:09] LABS: Alanine Aminotransferase 22 U/L (0-31); Albumin Level 4.4 g/dL (3.5-5.0); Alkaline Phosphatase 72 U/L (39-117); Anion Gap 17 (12-20); Aspartate Amino Transferase 24 U/L (5-31); Bilirubin Total 0.4 mg/dL (0.0-1.0); Blood Urea Nitrogen 14 mg/dL (9-16); C Reactive Protein < 0.10 mg/dL (< or = 0.50); Calcium 9.8 mg/dL (8.4-10.2); Carbon Dioxide 22 mmol/L (22-29); Chloride 104 mmol/L (96-108); Cholesterol 300 mg/dL (<200); Estimated Glomerular Filt Rate > 60; Glucose Random 100 mg/dL (60-115); HDL Cholesterol 39 mg/dL (>40); Iron 123 mcg/dL (30-160); LDL Cholesterol Calculated 214 mg/dL (<100); Percent Iron Saturation 28 % (15-50); Potassium 4.5 mmol/L (3.3-5.1); Sodium 138 mmol/L (135-145); Total Iron Binding Capacity 445 mcg/dL (228-428); Total Protein 7.5 g/dL (6.5-8.0); Triglycerides 236 mg/dL (<150); Unsaturated Iron Binding 322 ug/dL
[2023-12-07 14:10] LABS: Ferritin 15 ng/mL (10-250); TSH reflex Free T4 0.21 uIU/mL (0.32-4.0); Vitamin D 25-OH Total 46.5 ng/mL (>30)
[2023-12-07 14:20] LABS: Vitamin B12 416 pg/mL (200-900)
[2023-12-07 14:40] LABS: Free T4 (Free Thyroxine) 1.33 ng/dL (0.71-1.85)
[2023-12-10 00:38] LABS: Zinc 76 mcg/dL (60-130)
[2023-12-11 16:53] LABS: Vitamin A 61 mcg/dL (38-98)
[2023-12-12 10:58] LABS: Vitamin B1 64 nmol/L (8-30)
== END 2023-12-07 11:30 | disposition home or self-care (01) ==
LOC: HO.LAB 11:29
PROVIDERS: PCP Internal Medicine Geriatric Medicine; Visit Provider Physician Assistant Surgical
DX: Z01.818 Encounter for other preprocedural examination (principal); K44.9 Diaphragmatic hernia without obstruction or gangrene; Z13.1 Encounter for screening for diabetes mellitus; Z51.81 Encounter for therapeutic drug level monitoring; Z79.01 Long term (current) use of anticoagulants
CPT/HCPCS: 36415; 80053; 80061; 82306; 82607; 82728; 83036; 83540; 84425; 84439; 84443; 84590; 84630; 85025; 85610; 85730; 86140

== ENCOUNTER 2023-12-13 13:38 | Outpatient (AMB) | payer MEDICARE, MEDICAID, SELFPAY ==
--- NOTE | 2023-12-13 13:53 | AM.OFFVISNUR ---
Intake Visit Reasons: Evenity #7 Allergies pravastatin Allergy (Severe, Verified 10/26/23 12:48) Blister Sulfa (Sulfonamide Antibiotics) Allergy (Severe, Verified 10/26/23 12:48) Itching Office Meds romosozumab-aqqg 210 mg/2.34 mL(105 mg/1.17 mL x2)subcutaneous syringe Performing Provider: Oz Perez MD [place] [facility] [place] Administered by: Glenis Mclaughlin RN on 12/13/23 13:53 Dose Route Admin Location Dispensed Lot Number Expiration Date [facility] Activities Volunteer 210 mg subcut bilateral upper arms 2.34 mL [id number] 02/23/26 16738-169-01 AMGEN Comments: Consent form signed. Pt tolerated injection well. Pt denies any problems with previous injections. Assessment & Plan Assessment & Plan Orders: Orders AMB Romosozumab Injection Patient Supplied Today M81.0 - Age-related osteoporosis without current pathological fracture Medications: New romosozumab-aqqg 210 mg (2.34 mL) subcut ONCE 2.34 mL 0RF M81.0 - Age-related osteoporosis without current pathological fracture
== END 2023-12-13 13:52 | disposition home or self-care (01) ==
PROVIDERS: PCP Internal Medicine Geriatric Medicine
DX: M81.0 Age-related osteoporosis without current pathological fracture (principal)

== ENCOUNTER → 2023-12-13 13:38 | Outpatient (BNVA) | payer MEDICARE, MEDICAID, SELFPAY | PROVIDERS: PCP Internal Medicine Geriatric Medicine | DX: M81.0 Age-related osteoporosis without current pathological fracture (principal) | CPT/HCPCS: 96372; J3111 ==

== ENCOUNTER 2023-12-15 06:03 | Inpatient (IN) | payer MEDICARE, MEDICAID, SELFPAY ==
[2023-12-13 09:23] VITALS: BMI 31.6
--- NOTE | 2023-12-13 14:27 | P.CONAN_ITS ---
Documented by User: Vane Sharif NP 12/13/23 14:29 HPI - Anesthesia Eval Consult details Narrative: 63yo F for Hernia Hiatal Reducible s/p EGD/[place] 10/2023 with [facility] PMF[facility] Active Problems Active Problems: All Active Problems Pre-op evaluation (Acute) Vitamin B1 deficiency (Acute) BMI 33.0-33.9,adult (Acute) Obesity (Acute) Paraesophageal hernia (Acute) Complex ovarian cyst (Acute) Ovarian cyst (Acute) Uterine myoma (Acute) Leucocytosis (Acute) Seizures (Acute) Insomnia (Acute) Anxiety (Acute) Depression (Acute) Hyperlipidemia (Acute) Asthma (Acute) Osteoarthritis (Acute) S/P panniculectomy (Acute) Osteoporosis (Acute) Renal calculi (Acute) Vitamin D deficiency (Acute) Hypothyroidism (Acute) History of thyroid cancer (Acute) Past Medical History Medical History Steatosis, liver GERD (gastroesophageal reflux disease) Kidney stones Seizures Anxiety Depression Hyperlipidemia Osteoporosis Renal calculi Vitamin D deficiency History of thyroid cancer Hypothyroidism Chronic back pain Insomnia Diarrhea Osteoarthritis Anxiety and depression C. difficile colitis Asthma Hernia Family History Family History Mother Graves disease Family history of problems with anesthesia: No Surgical History Surgical History H/O LEEP H/O lithotripsy History of hernia surgery H/O adenoidectomy History of tonsillectomy S/P panniculectomy H/O tubal ligation History of appendectomy H/O thyroidectomy Gastric bypass status for obesity History of Problems with Anesthesia: No Social History Social History Household Members: Spouse Housing: House Do you presently have visiting nurse or other home services: No Patient Tobacco Use Status: Former Tobacco user Cigarettes Per Day: 2 Years Smoked: 10 years Use of substances other than those prescribed or required for medical reasons: Yes Substance Use Type Other:: Edibles Substance Use Frequency: Daily Have you been hit, kicked, punched, or otherwise hurt by someone within the past year? If so, by whom?: No Are you DNR?: No Advance Directives: No Advance Directives Information Provided: Yes Recently lost weight without trying: No Nutrition Risks: No Nutritional Risk service: No Current occupational status: unemployed Meds Allergies Allergy/AdvReac Type Severity Reaction Status Date / Time pravastatin Allergy Severe Blister Verified 12/15/23 06:43 Sulfa (Sulfonamide Allergy Severe Itching Verified 12/15/23 06:43 Antibiotics) Home Medications ?Medication ?Instructions ?Recorded ?Confirmed ?Last Taken ?Type buspirone 30 mg tablet 30 mg PO BID 10/11/20 12/15/23 12/14/23 History carisoprodol 350 mg tablet 350 mg PO QID 10/11/20 12/15/23 12/14/23 History ezetimibe 10 mg tablet 10 mg PO DAILY 10/11/20 12/15/23 12/14/23 History venlafaxine 150 mg 150 mg PO BEDTIME 10/11/20 12/15/23 12/14/23 History capsule,extended release 24 hr venlafaxine 75 mg capsule,extended 75 mg PO BEDTIME 10/11/20 12/15/23 12/14/23 History release 24 hr zolpidem 10 mg tablet 10 mg PO BEDTIME PRN insomnia 10/11/20 12/06/23 10/10/20 21:00 History albuterol sulfate 90 mcg/actuation 2 puff PO Q4-6H PRN asthma 04/23/21 12/15/23 12/13/23 History aerosol inhaler diclofenac sodium 1 % topical gel g topical BID PRN 08/08/21 12/06/23 Unknown History oxcarbazepine 150 mg tablet 150 mg PO BID 08/08/21 12/15/23 12/14/23 History fluticasone propionate 50 spray intranasal 09/14/23 12/06/23 Unknown History mcg/actuation nasal spray,suspension loratadine 10 mg tablet 10 mg PO QAM 09/14/23 12/15/23 12/14/23 History bisacodyl 5 mg tablet,delayed 10 mg PO DAILY 12/06/23 12/06/23 Unknown History release (Dulcolax (bisacodyl)) Exam Height,Weight and Vital Signs: Height 5 ft 7 in Weight 91.626 kg Pertinent Lab Results Pertinent Lab Results: Laboratory Tests 12/07/23 11:45 Blood Type O Positive Antibody Screen NEGATIVE Narrative Narrative: Laboratory Tests 12/07/23 11:55 WBC 5.3 Hgb 14.6 Hct 44.0 Plt Count 340 Sodium 138 Potassium 4.5 Chloride 104 Carbon Dioxide 22 BUN 14 Creatinine 0.77 EKG 09/2023 Vent. Rate : 057 BPM Atrial Rate : 057 BPM P-R Int : 156 ms QRS Dur : 086 ms QT Int : 450 ms P-R-T Axes : 049 005 034 degrees QTc Int : 438 ms Sinus bradycardia Otherwise normal ECG No previous ECGs available Assessment and Plan Assessment Anesthesia Assessment: Chart Reviewed Final Anesthetic Review Family History of Problems with Anesthesia: No History of Problems with Anesthesia: No Documented by User: Carole Echevarria MD 12/15/23 08:25 HPI - Anesthesia Eval Consult details Narrative: 63yo F for EGD, Laparoscopic Hiatal Hernia repair, possible revision of sleeve gastrectomy s/p EGD/[place] 10/2023 with [facility] Active Problems Active Problems: All Active Problems Pre-op evaluation (Acute) Vitamin B1 deficiency (Acute) BMI 33.0-33.9,adult (Acute) Obesity (Acute) Paraesophageal hernia (Acute) Complex ovarian cyst (Acute) Ovarian cyst (Acute) Uterine myoma (Acute) Leucocytosis (Acute) Seizures (Acute) Insomnia (Acute) Anxiety (Acute) Depression (Acute) Hyperlipidemia (Acute) Asthma (Acute)-last used inhaler 2 days ago 12/13/23 Osteoarthritis (Acute) S/P panniculectomy (Acute) Osteoporosis (Acute) Renal calculi (Acute) Vitamin D deficiency (Acute) Hypothyroidism (Acute) History of thyroid cancer (Acute) Past Medical History Medical History Steatosis, liver GERD (gastroesophageal reflux disease) Kidney stones Seizures Anxiety Depression Hyperlipidemia Osteoporosis Renal calculi Vitamin D deficiency History of thyroid cancer Hypothyroidism Chronic back pain Insomnia Diarrhea Osteoarthritis Anxiety and depression C. difficile colitis Asthma Hernia Family History Family History Mother Graves disease Family history of problems with anesthesia: No Surgical History Surgical History H/O LEEP H/O lithotripsy History of hernia surgery H/O adenoidectomy History of tonsillectomy S/P panniculectomy H/O tubal ligation History of appendectomy H/O thyroidectomy Gastric bypass status for obesity History of Problems with Anesthesia: Yes (PONV) Social History Social History Household Members: Spouse Housing: House Do you presently have visiting nurse or other home services: No Patient Tobacco Use Status: Former Tobacco user Cigarettes Per Day: 2 Years Smoked: 10 years Use of substances other than those prescribed or required for medical reasons: Yes Substance Use Type Other:: Edibles Substance Use Frequency: Daily Have you been hit, kicked, punched, or otherwise hurt by someone within the past year? If so, by whom?: No Are you DNR?: No Advance Directives: No Advance Directives Information Provided: Yes Recently lost weight without trying: No Nutrition Risks: No Nutritional Risk service: No Current occupational status: unemployed Meds Allergies Allergy/AdvReac Type Severity Reaction Status Date / Time pravastatin Allergy Severe Blister Verified 12/15/23 06:43 Sulfa (Sulfonamide Allergy Severe Itching Verified 12/15/23 06:43 Antibiotics) Home Medications ?Medication ?Instructions ?Recorded ?Confirmed ?Last Taken ?Type buspirone 30 mg tablet 30 mg PO BID 10/11/20 12/15/23 12/14/23 History carisoprodol 350 mg tablet 350 mg PO QID 10/11/20 12/15/23 12/14/23 History ezetimibe 10 mg tablet 10 mg PO DAILY 10/11/20 12/15/23 12/14/23 History venlafaxine 150 mg 150 mg PO BEDTIME 10/11/20 12/15/23 12/14/23 History capsule,extended release 24 hr venlafaxine 75 mg capsule,extended 75 mg PO BEDTIME 10/11/20 12/15/23 12/14/23 History release 24 hr zolpidem 10 mg tablet 10 mg PO BEDTIME PRN insomnia 10/11/20 12/06/23 10/10/20 21:00 History albuterol sulfate 90 mcg/actuation 2 puff PO Q4-6H PRN asthma 04/23/21 12/15/23 12/13/23 History aerosol inhaler diclofenac sodium 1 % topical gel g topical BID PRN 08/08/21 12/06/23 Unknown History oxcarbazepine 150 mg tablet 150 mg PO BID 08/08/21 12/15/23 12/14/23 History fluticasone propionate 50 spray intranasal 09/14/23 12/06/23 Unknown History mcg/actuation nasal spray,suspension loratadine 10 mg tablet 10 mg PO QAM 09/14/23 12/15/23 12/14/23 History bisacodyl 5 mg tablet,delayed 10 mg PO DAILY 12/06/23 12/06/23 Unknown History release (Dulcolax (bisacodyl)) Exam Height,Weight and Vital Signs: Height 5 ft 7 in Weight 91.626 kg Vital Signs Temp Pulse Resp BP Pulse Ox O2 Del Method 12/15/23 06:39 97.0 F 77 16 148/80 H 100 Room Air Airway Mallampati Class: II TM Dist: >3cm Neck ROM: Full Loose/Missing/Broken Teeth: No (Denies broken, loose, missing teeth) Heart: RRR Lungs: CTAB Assessment and Plan Assessment Anesthesia Assessment: Anesthesia Plan Discussed and Chart Reviewed Final Anesthetic Review Family History of Problems with Anesthesia: No History of Problems with Anesthesia: Yes (PONV) NPO: Yes ASA Class: II Final Preanesthetic Review: No Changes in Pt Med Stat, Meds/Allgs Chart Reviewed, Consent Obtained/Reviewed and Anes Risks/Benef Reviewed Patient Risk: Intermediate Procedure Risk: Intermediate Assessment/Block/Sedation in SS: Assess/Block/Sedation-SS Anesthetic Plan Anesthetic Plan: GA Disposition: Standard PACU and Inp. Admit - Standard Bed
[2023-12-15] VITALS (9 sets, daily range): BP systolic 128–164; BP diastolic 70–90; PULSE 66–88; RESP 12–18; TEMP 36.1–36.4; O2SAT 95–100; BMI 31.6
[2023-12-15] MEDS: Aprepitant 32 MG/4.4 ML VIAL IVPUSH (06:36)
[2023-12-15] MEDS: Lactated Ringers 1,000 ML 100 ML IVCONT ×3 (06:36→22:10)
[2023-12-15] MEDS: Lactated Ringers 1,000 ML 999 ML IV (06:36)
--- NOTE | 2023-12-15 07:25 | MHC.SHP ---
Pre-Procedural Eval Section A - 24 Hr Update-Section A only Date of Service: 12/15/23 The patient is an INPATIENT: Yes The patient has been examined within 24 hours of the surgical procedure. The History & Physical has been completed within 30 days and I have reviewed it.: Yes Section B - Complete if H&P > 30 days Chief Complaint: Diaphragmatic Hernia Relevant Family History (Specify if Yes): No Relevant Social History: None Present Medications: None Medical History: No relevant PMH History of Previous Operations: Relevant previous surgery/procedure and date(s) (laparoscopic sleeve gastrectomy) Allergies: Allergies Allergy/AdvReac Type Severity Reaction Status Date / Time pravastatin Allergy Severe Blister Verified 12/15/23 06:43 Sulfa (Sulfonamide Allergy Severe Itching Verified 12/15/23 06:43 Antibiotics) Review of Systems Sugical H&P ROS: Negative: Constitution, Cardiovascular, Respiratory, Neurological, Psychiatric, Hem-Onc, Allergic/Immunologic, Gastrointestinal, Genitourinary, Musculoskeletal, Integumentary, Endocrine and Eyes/Ears/Nose/Throat Exam Surgical H&P Exam: Normal: HEENT, Normal: Heart, Normal: Lungs, Normal: Extremities, Normal: Abdomen, Normal: Skin and Normal: Neurological Plan Diagnosis/Plan: Unchanged I have reviewed the history and physical and performed a pertinent physical examination on my patient. No changes have occurred unless specified. Time Spent With Patient Time: Total time managing care of this patient today ____ minutes.
--- NOTE | 2023-12-15 07:36 | P.BOP_ITS ---
Brief Operative Note Date of Service: 12/15/23 Pre-op diagnosis: Obesity with comorbidities (see below) Post-op diagnosis: same Procedure: INITIAL PATIENT BMI ON PRESENTATION AT OUR OFFICE: 32.7 kg/m2 LAST BMI BEFORE SURGERY: 31.4 kg/m2 COMORBIDITIES: Asthma, hyperlipidemia, hypothyroidism, GERD, seizures, depression, anxiety, back pain ?The patient presented to the Weight Management Program with significant obesity that was negatively impacting the patient's comorbidities as listed above.? The program is a phased program with a special focus on preoperative medical weight management to promote substantial weight loss and prepare the patients for the second phase of the program: bariatric surgery. The patient participated in an intensive weekly lifestyle ?intervention and exercise program during which the patient ?has lost between the initial office visit and the last preoperative visit 14.7lbs, or 6.84% of initial actual body weight. It was deemed appropriate for the patient to now have bariatric surgery. In light of the current Covid-19 pandemic and the well documented strong association of obesity and increased risk of worse outcomes if infected with Covid-19 (REFERENCES: https://pubmed.ncbi.nlm.nih.gov/71267896/ ,? https://pubmed.ncbi.nlm.nih.gov/42246114/ ), any delay in undergoing bariatric surgery may lead to the patient's worsening health condition and increased?risk of more severe Covid-19 disease if infected. In addition a recent?study from [facility] published in [employer] on 04/21/2021 ([email or web address][id number]) found that, among patients with obesity, substantial weight loss achieved with surgery was associated with improved outcomes of COVID-19 infection. The findings suggest that obesity can be a modifiable risk factor for the severity of COVID-19 infection. In addition, the patient met the BMI-criteria for bariatric surgery based on the BMI on initial presentation. The patient should not be penalized for achieving such weight loss because ?it is not sustainable long-term without surgical intervention and it was achieved in preparation for bariatric surgery ?under my direction and based on my published research ([email or web address]).[email or web address] and? https://www.soard.org/article/[email or web address](51)35498-X/pdf ) ?that a 10% preoperative weight loss improves long-term weight loss after surgery and reduces perioperative complications.? Insurance carriers such as [facility] have endorsed my recommendations ?and have included in their policies criteria to include a 10% preoperative weight loss requirement. PROCEDURE: Esophago-gastroscopy, laparoscopic repair of incarcerated diaphragmatic hernia, laparoscopic lysis of adhesions and laparoscopic gastropexy INDICATIONS: This is a 63 year-old female who was electively scheduled for laparoscopic, possibly open sleeve gastrectomy revision. The patient has a previous sleeve gastrectomy at [facility] with Dr. Navarro. Preoperative work-up including an UGI and EGD is suggestive of a large diaphragmatic hernia. The objective of this operation is to repair the dipahragmatic hernia and prevent GERD.. The risks and complications of the procedure were discussed with the patient in advance, particularly the possibility of ; pulmonary embolism; staple line leak; bleeding; GERD; cardiac, pulmonary, or renal complications; as well as long-term problems such as insufficient weight loss, vitamin deficiency, strictures, or ulcers. The patient understood all the risks, and was in agreement to proceed with surgery. DESCRIPTION OF PROCEDURE: After informed consent was obtained from the patient, the patient was given preoperative antibiotics, and was transferred to the operating room. After successful induction of general anesthesia, pneumatic compression devices were placed on both lower extremities. An upper endoscopy was performed next. The oropharynx and esophagus appeared to be within normal limits. There was a diaphragmatic hernia present of moderate/large size consistent with the findings of the preoperative upper GI and endoscopy. The stomach was entered. Then after all fluid and air were suctioned and the stomach was fully decompressed, the scope was withdrawn and secured in the mid esophagus. The patient was then prepped and draped in the usual sterile manner, and abdominal access was established at the right mid-axillary line at the level of mid-abdomen with the Anabel technique, due to extensive surgery at the midline from previous hernia repair and panniculectomy. A 12 mm blunt port was inserted, and the abdomen was insufflated with CO2 to a pressure of 15 mmHg. There were no adhesions in the abdomen from previous sleeve gastrectomy and hernia repairs Two 5 mm Versi step ports were placed in the left upper quadrant, and a 5 mm and 12 mm Versi-Step ports to the right upper quadrant. 1% lidocaine plain was used to infiltrate all port sites as well as all fascia defects. Following that, the patient was placed in a steep reverse Trendelenburg position. An additional 5 mm port was placed to the right flank for the Mediflex retractor that was used to retract the left lobe of the liver. There was also an obvious significant-sized hiatal hernia. The right ligia was dissected first carefully to preserve the peritoneum. I continued dissecting along the hiatus toward the left ligia and the angle of His. I fully mobilized the fat pad that was incarcerated in the hernia. I then continued by dissecting even further into the posterior retro-esophageal space all the way to the angle of His. I continued to mobilize the esophagus into the mediastinum circumferentially. Both vagal nerves were seen and preserved. Extensive dissec tion into the mediastinum was required the esophagus from the aorta and the heart anteriorly. At that point, I was able to have at least 3 to 5 cm of esophagus into the abdomen.? After I completely mobilized the esophagus from both the left and right ligia and I had a good mobilization of the esophagus circumferentially, I closed the hernia defect with five interrupted #0 Surgidac sutures using the Endo Stitch device, three of which was placed posterior and two of which anterior to the esophagus. ? A gastropexy was then performed in order to prevent postoperative GERD and partial gastric volvulus. Several interrupted 2.0 Surgidac sutures were placed between the sleeve's staple line and the previously divided greater omentum and gastro-colic ligament using the Endo-Stitch device. ?An upper endoscopy was performed. There was no narrowing at the GE junction and the GE junction was well within the abdomen for at least 3cm. The scope was easily advanced all the way to the pylorus which was clearly visualized. There was no narrowing anywhere and the sleeve's caliber was even throughout. The sleeve's staple line was inspected and there was no evidence of ischemia, bleeding or dehiscence. At that point the gastroscope was withdrawn from the patient?s mouth while we were decompressing the bowel and the stomach from any remaining air. I looked into the lesser sac to see how the sleeve was situating and it was situating well. There was no bleeding from the staple line, spleen, or short gastric vessels. The Mediflex retractor was removed, and the undersurface of the liver was inspected and there was no bleeding. The patient was placed in supine position. I closed the fascial defect of the 12 mm port site with a figure of eight #1 Polysorb suture. Then 30cc Ropivacaine with 10 mg of Dexamethasone were used to infiltrate the fascial closure as well as all skin incisions. At this point, the abdomen was deflated, all ports were removed under direct vision, and no blee ding was noted from any of the port sites. The skin incisions were irrigated with saline and were closed with 4-0 absorbable monofilament sutures. Steri- Strips and OpSites were used to cover all incisions. The patient was extubated and was transferred in stable condition to the recovery room for further care. I was present and performed all veloz parts of the procedure. Mr. Jiang was the machinist first class. There were no residents to assist with this case. Guanako Rowe MD, PhD, FACS Surgeon: Jeremi Rowe MD Anesthesia: GETA, local and other (TAP block) Was an Concrete Paving Machine Operator used for this Procedure?: No Concrete Paving Machine Operator: Domenico Jiang Estimated blood loss (mL): 10 IV fluids (mL): 1,800 Urine output (mL): 100 Pathology: none sent Condition: stable Disposition: PACU
[2023-12-15] MEDS: Scopolamine 1.5 MG PATCH.TD.3 TRANSDERMA (07:37)
--- NOTE | 2023-12-15 07:43 | P.PNGS_ITS ---
Subjective Subjective Date of Service: 12/16/23 Interval history: Feels well. Mild incisional pain. She is tolerating phase 1 bariatric diet Physical Exam 2 Vital Signs: Vital Signs: Last Vital Signs Temp 97.0 F 12/15/23 06:39 Pulse 77 12/15/23 06:39 Resp 16 12/15/23 06:39 BP 148/80 H 12/15/23 06:39 Pulse Ox 100 12/15/23 06:39 O2 Del Method Room Air 12/15/23 06:39 BMI result Body Mass Index 31.6 GI: Inspection: Yes normal to inspection, Yes incision (clean, dry and intact) and Yes obesity Palpation (GI): Soft to palpation Extrem: Right lower extremity: normal to inspection (no calf tenderness) L eft lower extremity: normal to inspection (no calf tenderness) Objective Data Active Medications Albuterol Sulfate (Albuterol Sulfate (0.083%) 2.5 Mg/3 Ml Vial.Neb) 2.5 mg INHALE ONCE PRN PRN Reason: Shortness of Breath/Wheezing Lactated Ringer's (Lr) 1,000 mls @ 100 mls/hr IVCONT .Q10H [facility] Last Admin: 12/15/23 06:36 Dose: 100 mls/hr Documented By: ANALI Lactated Ringer's (Lr) 1,000 mls @ 999 mls/hr IV .Q1H1M [facility] Stop: 12/15/23 08:15 Last Admin: 12/15/23 06:36 Dose: 999 mls/hr Documented By: ANALI Labs 12/16/23 05:21 12/16/23 05:21 Procedures Date of Service Date of Service: 12/16/23 Progress Note: A&P Assessment and plan (1) Obesity: Status: Acute Assessment and Plan: s/p laparoscopic lysis of adhesions, diaphragmatic hernia repair and gastropexy Doing well Will check am labs and if OK the patient will be discharged home (2) Paraesophageal hernia: Status: Acute (3) Seizures: Status: Acute (4) Insomnia: Status: Acute (5) Anxiety: Status: Acute (6) Depression: Status: Acute (7) Hyperlipidemia: Status: Acute (8) Asthma: Status: Acute (9) Osteoarthritis: Status: Acute (10) Osteoporosis: Status: Acute (11) Hypothyroidism: Status: Acute (12) GERD (gastroesophageal reflux disease): Status: Acute (13) Steatosis, liver: Status: Acute (14) Status post repair of paraesophageal diaphragmatic hernia: Status: Acute (15) Intra-abdominal adhesions: Status: Acute Time Spent With Patient Time: Total time managing care of this patient today ____ minutes. Quality Stroke Does the patient have a stroke diagnosis?: No VTE Prior VTE?: No VTE Risk Level:: Surgical - moderate VTE Device Contraindication: N/A - Device Ordered VTE Drug Contraindication: Treatment Not Indicated
[2023-12-15] MEDS: ceFAZolin Sodium/Dextrose,Iso 2 GM/50 ML PIGGYBACK IV ×2 (07:54→13:36)
--- OUTSIDE RECORDS SUMMARY | 2023-12-15 08:22 | XMS_ITS | Continuity of Care Document ---
Author Organization [facility] Address [address] [place] [address]- Care Team Providers Care Tower Truck Driver Name Role Phone Name Rock DE PAZ Primary Care Physician [phone] [place] [facility] [place] [facility] [id number] Date(s): 01/01/21 - 01/31/21 [facility] [address] [place] [address]- Attending Physician: Danette Hopper Admitting Physician: Danette Hopper Referring Physician: Danette Hopper Allergies, Adverse Reactions, Alerts Substance Reaction Severity Status pravastatin blisters on face Persistent Severe Acti ve sulfa drugs Rash,Hives, Itch Persistent Moderate Acti ve Immunizations Given and Recorded Vaccine Date Status Refusal Reason influenza virus vaccine, inactivated 02/15/14 Give n pneumococcal 23-valent vaccine 08/15/13 Given Medications Baclofen Tablet 10 mg, By Mouth, 3 times a day, Maintenance, 07/31/13 10:10:52 Start Date: 07/31/13 Status: Ordered Calcium Citrate By Mouth, 2 times a day, 0 Refills, Maintenance, 04/30/14 13:15:59 Start Date: 04/30/14 Status: Ordered docusate sodium 100 mg oral capsule 1 capsule = 100 mg, By Mouth, 2 times a day, # 60 capsule, 0 Refills, Maintenance, 02/21/14 10:14:49, Capsule Start Date: 02/21/14 Status: Ordered levothyroxine 125 mcg (0.125 mg) oral tablet 1 tablet = 125 mcg, By Mouth, Daily, # 30 tablet, 11 Refills, Maintenance, 09/21/18 15:17:27 EDT, Tablet Start Date: 09/21/18 Stop Date: 09/16/19 Status: Ordered Multivitamin Tablet 1 tablet, By Mouth, Daily, chewable, 0 Refills, Maintenance, 07/31/13 10:11:58, Tablet Start Date: 07/31/13 Status: Ordered omeprazole 20 mg oral enteric coated capsule 1 capsule = 20 mg, By Mouth, 2 times a day, # 28 capsule, 0 Refills, Maintenance, 1 capsule By Mouth 2 times a day,x14 days Start Date: 04/10/13 Stop Date: 04/24/13 Status: Ordered soma soma, Refills 0, Maintenance, 03/26/16 16:28:36, Compound Start Date: 03/26/16 Status: Ordered tramadol 50 mg oral tablet 2 tablet = 100 mg, By Mouth, Every 8 hours, PRN for pain, # 60 tablet, 0 Refills, Maintenance, Tablet Start Date: 07/02/11 Status: Ordered trazodone 100 mg oral tablet 3 tablets, By Mouth, Daily at bedtime, Maintenance, 02/02/14 15:09:54, Tablet Start Date: 02/02/14 Status: Ordered vancomycin 125 mg oral capsule See Instructions, Take 1 capsule twice a day x 7 days then 1 capsule every other day x 7 days, # 14capsule, 0 Refills, Maintenance, 01/13/21 15:32:00 EDT, [facility], Partial fill upon patient request if the prescription is for a schedule... Start Date: 01/13/21 Status: Ordered venlafaxine 75 mg oral capsule, extended release 1 capsule = 75 mg, By Mouth, Daily at bedtime, Maintenance, 02/02/14 15:11:13, CR Capsule Start Date: 02/02/14 Status: Ordered Ziana Topically, Daily at bedtime, 0 Refills, Maintenance, 12/05/20 13:20:00 EDT, Partial fill upon patient request if the prescription is for a schedule II opioid drug. Start Date: 12/05/20 Status: Ordered Problem List Condition Effective Dates Status Health Status Inform ant Chronic low back pain(Confirmed) Active Fatty liver(Confirmed) Active Hx of papillary thyroid carcinoma(Confirmed) Active Hyperlipidemia(Confirmed) Active Morbid obesity(Confirmed) Active Osteoarthritis(Confirmed) Active Ventral hernia(Confirmed) Active Social History Social History Type Response Smoking Status Former smoker entered on: 05/29/13 Sex
--- OUTSIDE RECORDS SUMMARY | 2023-12-15 08:22 | XMS_ITS | Continuity of Care Document ---
Author Organization [facility] Address [address] [place] [address]- Care Team Providers Care Regional Maintenance Manager Name Role Phone Name Rokc DE PAZ Primary Care Physician [phone] [place] [facility] [place] - 02/12/21 [facility] [address] [place] [address]- [place] Allergies, Adverse Reactions, Alerts Substance Reaction Severity [...] 14capsule, 0 Refills, Maintenance, 01/13/21 15:32:00 EDT, [facility], Partial fill upon patient [...]
--- OUTSIDE RECORDS SUMMARY | 2023-12-15 08:22 | XMS_ITS | Continuity of Care Document ---
Author Organization [facility] ter Address [address] [place] [address]- Care Team Providers Care Collection Systems Worker Name Role Phone Name Rock DE PAZ Primary Care Physician Encounter [facility] [place] Date(s): 07/02/20 - 08/01/[address] [address] Attending Physician: Danette Hopper Admitting Physician: Danette Hopper Referring Physician: AdmtrDanette Allergies, Adverse Reactions, Alerts Substance Reaction Severity [...] 15:09:54, Tablet Start Date: 02/02/14 Status: Ordered venlafaxine 75 mg oral capsule, extended release 1 capsule = 75 mg, By Mouth, Daily at bedtime, Maintenance, 02/02/14 15:11:13, CR Capsule Start Date: 02/02/14 Status: Ordered Problem List Condition Effective Dates Status Health Status Inform ant Chronic low back pain(Confirmed) Active Fatty liver(Confirmed) Active Hx of papillary thyroid carcinoma(Confirmed) Active Hyperlipidemia(Confirmed) Active Morbid obesity(Confirmed) Active Osteoarthritis(Confirmed) Active Ventral hernia(Confirmed) Active Social History Social History Type Response Smoking Status Former smoker entered on: 05/29/13 Sex
--- OUTSIDE RECORDS SUMMARY | 2023-12-15 08:22 | XMS_ITS | Continuity of Care Document ---
Author Organization [facility] [place] Address [address] [place] [address]- Care Team Providers Care Natural Gas Shothole Driller Name Role Phone Name Rock DE PAZ Primary Care Physician Encounter [facility] Date(s): 01/28/21 - 02/27/21 [facility] [place] [address] [place] [address]- Allergies, Adverse Reactions, Alerts Substance Reaction Severity [...] 14capsule, 0 Refills, Maintenance, 01/13/21 15:32:00 EDT, [facility], Partial fill upon patient [...]
--- OUTSIDE RECORDS SUMMARY | 2023-12-15 08:22 | XMS_ITS | Continuity of Care Document ---
Author Organization [facility] Address [address] [place] [address]- Care Team Providers Care Manager Of Business Name Role Phone Name Rock DE PAZ Primary Care Physician Encounter [facility] [place] R [id number] Date(s): 01/01/21 - 01/31/21 [facility] [address] [place] [address]- [place] Allergies, Adverse Reactions, Alerts Substance Reaction [...] 14capsule, 0 Refills, Maintenance, 01/13/21 15:32:00 EDT, [facility], Partial fill upon patient [...]
--- OUTSIDE RECORDS SUMMARY | 2023-12-15 08:22 | XMS_ITS | Continuity of Care Document ---
Author Organization [facility] Address [address] [place] [address]- Care Team Providers Care Trimming Assembler Name Role Phone Name Rock DE PAZ Primary Care Physician [phone] Encounter [facility] [place] Date(s): 10/11/20 - 11/10/20 [facility] [address] [place] [id number] Allergies, Adverse Reactions, Alerts Substance Reaction Severity [...]
--- OUTSIDE RECORDS SUMMARY | 2023-12-15 08:22 | XMS_ITS | Continuity of Care Document ---
Author Organization [facility] ter Address [address] [place] [address]- Care Team Providers Care Bank Clerk Name Role Phone Name Rock DE PAZ Primary Care Physician Encounter [facility] [place] Date(s): 04/01/20 - 06/29/[address] [address] Attending Physician: Domenico Menezes MD Referring Physician: Domenico Menezes MD Allergies, Adverse Reactions, Alerts Substance Reaction Severity [...]
--- OUTSIDE RECORDS SUMMARY | 2023-12-15 08:22 | XMS_ITS | Continuity of Care Document ---
Author Organization [facility] Address [address] [place] [address]- Care Team Providers Care Computer Operations Technician Name Role Phone Name Rock DE PAZ Primary Care Physician [place] [facility] [place] 06/02/21 - 07/02/21 [facility] [address] [place] [address]- [place] Allergies, Adverse Reactions, Alerts Substance Reaction [...] 14capsule, 0 Refills, Maintenance, 01/13/21 15:32:00 EDT, [facility], Partial fill upon patient [...]
--- OUTSIDE RECORDS SUMMARY | 2023-12-15 08:22 | XMS_ITS | Continuity of Care Document ---
Author Organization [facility] Address [address] [place] [address]- Care Team Providers Care Construction Services Technician Name Role Phone Name Rock DE PAZ Primary Care Physician [phone] [place] [facility] [place] 12/04[place]22 [facility] [place] [facility] [facility] [address] [place], [place] [address] Allergies, Adverse Reactions, Alerts Substance Reaction Severity [...] 14capsule, 0 Refills, Maintenance, 01/13/21 15:32:00 EDT, [facility], Partial fill upon patient request if the prescription is for a schedule... Start Date: 01/13/21 Status: Ordered vancomycin 125 mg oral capsule See Instructions, 1 capsule By Mouth once a day x 7 days and then every other day x 8 weeks, # 45 capsule, 0 Refills, Maintenance, 01/20/21 13:32:00 EDT, [facility], Partial fill upon patient request if the prescription is for a schedule II... Start Date: 01/20/21 Status: Ordered venlafaxine 75 mg oral capsule, extended release 1 capsule = 75 mg, By Mouth, Daily at bedtime, Maintenance, 02/02/14 15:11:13, CR Capsule Start Date: 02/02/14 Status: Ordered Ziana Topically, Daily at bedtime, 0 Refills, Maintenance, 12/05/20 13:20:00 EDT, Partial fill upon patient request if the prescription is for a schedule II opioid drug. Start Date: 12/05/20 Status: Ordered Problem List Condition Confirmation Course Effective Dates Status H ealth Status Informant Chronic low back pain Confirmed Active Fatty liver Confirmed Active Hx of papillary thyroid carcinoma Confirmed Active Hyperlipidemia Confirmed Active Morbid obesity Confirmed Active Osteoarthritis Confirmed Active Ventral hernia Confirmed Active Social History Social History Type Response Smoking Status Former smoker entered on: 05/29/13 Sex Patient Care team information Care Team Personnel Name: Daisy Arevalo RN Position: [facility] RN Member Role: Primary Care Nurse Name: Name Rock DE PAZ Position: [facility] Outreach Member Role: PCP Address: Address: [address] [place] [address] Name: Connie Krause Position: [facility] Member Role: Primary Care Nurse Care Team Related Persons Name: DIVINA GALAVIZ Address: home [address] [place] [address] Name: DOM ZAFAR Address: home [address] [place] [address]
--- OUTSIDE RECORDS SUMMARY | 2023-12-15 08:22 | XMS_ITS | Continuity of Care Document ---
Author Organization [facility] Address [address] [place] [address]- Care Team Providers Care Landfill Gas Plant Field Technician Name Role Phone Name Rock DE PAZ Primary Care Physician [phone] Encounter [facility] [place] Date(s): 12/06/20 - 01/05/21 [facility] [address] [place] [address]- [place] Allergies, Adverse Reactions, Alerts Substance Reaction [...]
--- OUTSIDE RECORDS SUMMARY | 2023-12-15 08:22 | XMS_ITS | Continuity of Care Document ---
Author Organization [facility] ter Address [address] [place] [address]- Care Team Providers Care Bridge Painter Name Role Phone Name Rock DE PAZ Primary Care Physician [phone] Encounter [facility] [place] Date(s): 05/25/20 - 07/04/[address] [address] Attending Physician: Domenico Menezes MD Admitting Physician: Domenico Menezes MD Referring Physician: Domenico [...]
--- OUTSIDE RECORDS SUMMARY | 2023-12-15 08:23 | XMS_ITS | Continuity of Care Document ---
Author Organization [facility] ter Address [address] [place] [address]- Care Team Providers Care Gum Maker Name Role Phone Name Rock DE PAZ Primary Care Physician [place] [facility] [place](s): 12/11/20 - 12/11/[address] [address] Discharge Disposition: A-D/C Home Attending Physician: Mariajose Concepcion MD Admitting Physician: Mariajose Concepcion MD Referring Physician: Mariajose Concepcion MD Allergies, Adverse Reactions, Alerts Substance Reaction [...] Status: Ordered vancomycin 125 mg oral capsule 1 capsule = 125 mg, By Mouth, Every 6 hours, for 30 days, # 120 capsule, 0 Refills, Acute 01/04/21 18:41:00 EDT, 12/05/20 18:41:00 EDT, Capsule, [facility], Partial fill upon patient request if the prescription is for a schedule II opioid d... Start Date: 12/05/20 Stop Date: 01/04/21 Status: Ordered venlafaxine 75 mg oral capsule, [...] obesity(Confirmed) Active Osteoarthritis(Confirmed) Active Ventral hernia(Confirmed) Active Vital Signs Most recent to oldest [Reference Range]: 1 2 3 Height 170 cm (12/11/20 12:58 PM) Weight 107.0 kg (12/11/20 12:58 PM) Oxygen Saturation [94-100 %] 99 % (12/11/20 3:08 PM) 99 % (12/11/20 3:02 PM) 99 % (12/11/20 12:58 PM) Pulse Rate [55-90 bpm] 59 bpm (12/11/20 12:58 PM) Body Mass Index [18.5-24.99] 37.02 *>HHI* (12/11/20 12:58 PM) Blood Pressure [90-138/55-84 mm Hg] 122/80mm Hg (12/11/20 3:08 PM) 118/71mm Hg (12/11/20 3:02 PM) 130/76mm Hg (12/11/20 12:58 PM) Respiratory Rate [16-30 br/min] 17 br/min (12/11/20 3:08 PM) 18 br/min (12/11/20 3:02 PM) 20 br/min (12/11/20 12:58 PM) Temperature [96.8-100.4 DegF] 96.8 DegF (12/11/20 12:58 PM) Mode of Delivery (Oxygen) Room air (12/11/20 3:08 PM) Room air (12/11/20 3:02 PM) Room air (12/11/20 12:58 PM) Blood pressure sites Arm, left (12/11/20 3:08 PM) Arm, left (12/11/20 3:02 PM) Arm, left (12/11/20 12:58 PM) Temperature Route Temporal (12/11/20 12:58 PM) Social History Social History Type Response Smoking Status Former smoker entered on: 05/29/13 Sex
--- OUTSIDE RECORDS SUMMARY | 2023-12-15 08:23 | XMS_ITS | Continuity of Care Document ---
Author Organization [facility] [place] Address [address] [place] [address]- Care Team Providers Care Radiation Control Specialist Name Role Phone Name Rock DE PAZ Primary Care Physician Encounter [facility] Date(s): 01/06/21 - 02/12/21 [facility] [place] [address] [place] [address]- Attending Physician: Lio Sexton MD Referring Physician: Name Rock DE PAZ Allergies, Adverse Reactions, Alerts Substance Reaction Severity [...] 14capsule, 0 Refills, Maintenance, 01/13/21 15:32:00 EDT, [facility] 1967, Partial fill upon patient [...]
--- OUTSIDE RECORDS SUMMARY | 2023-12-15 08:23 | XMS_ITS | Continuity of Care Document ---
Author Organization [facility] [place] Address [address] [place] [address]- Care Team Providers Care Retail Administrative Assistant Name Role Phone Name Rock DE PAZ Primary Care Physician [phone] Encounter [facility] Date(s): 04/14/21 - 05/14/21 [facility] [place] [address] [place], [place] [address] Attending Physician: Danette Hopper Admitting Physician: Danette Hopper Referring Physician: Admtr, [email or web address] Allergies, Adverse Reactions, Alerts Substance Reaction Severity [...] 14capsule, 0 Refills, Maintenance, 01/13/21 15:32:00 EDT, [facility], Partial fill upon patient request [...]
--- OUTSIDE RECORDS SUMMARY | 2023-12-15 08:23 | XMS_ITS | Continuity of Care Document ---
Author Organization [facility] Address [address] [place] [address]- Care Team Providers Care Automotive Sales Specialist Name Role Phone Name Rock DE PAZ Primary Care Physician [phone] En[place] [facility] [place] Date(s): 08/01/21 - 08/31/21 [facility] [address] [place] [address]- [place] Allergies, Adverse Reactions, Alerts Substance Reaction [...] 14capsule, 0 Refills, Maintenance, 01/13/21 15:32:00 EDT, [facility] 1966, Partial fill upon patient request if the [...]
--- OUTSIDE RECORDS SUMMARY | 2023-12-15 08:23 | XMS_ITS | Continuity of Care Document ---
Author Organization [facility] ter Address [address] [place] [address]- Care Team Providers Care Director Of Teaching And Learning Name Role Phone Name Rock DE PAZ Primary Care Physician [phone] Encounter [facility] [place] Date(s): 05/30/20 - 07/05/[address] [address] Attending Physician: Domenico Menezes MD Admitting Physician: Domenico Menezes MD Allergies, Adverse Reactions, [...]
--- OUTSIDE RECORDS SUMMARY | 2023-12-15 08:23 | XMS_ITS | Continuity of Care Document ---
Author Organization [facility] Address [address] [place] [address]- Care Team Providers Care Farm Equipment Operator Name Role Phone Name Rock DE PAZ Primary Care Physician [phone] [id number] Date(s[facility] 12/06/20 - 01/31/21 [facility] [address] [place] [address]- Attending Physician: Mariajose Concepcion MD Admitting Physician: Mariajose Concepcion MD Referring Physician: Rock Rodrigues MD Allergies, Adverse Reactions, Alerts Substance Reaction [...] Refills, Maintenance, 01/13/21 15:32:00 EDT, [facility] 1967, Partial fill upon patient [...]
--- OUTSIDE RECORDS SUMMARY | 2023-12-15 08:23 | XMS_ITS | Continuity of Care Document ---
Author Organization [facility] Address [address] [place] [address]- Care Team Providers Care Tumbler Machine Operator Name Role Phone Name Rock DE PAZ Primary Care Physician En[place] [facility] [place] R [id number] Date(s): 01/23/21 - 02/22/21 [facility] [address] [place] [address]- [place] Allergies, Adverse Reactions, Alerts Substance Reaction [...] 14capsule, 0 Refills, Maintenance, 01/13/21 15:32:00 EDT, [facility], Partial fill upon [...]
[2023-12-15] MEDS: Acetaminophen 1,000 MG/100 ML PIGGYBACK 400 MG IV (08:30)
--- NOTE | 2023-12-15 11:10 | P.DS_ITS ---
DS: Providers Provider Date of Service: 12/16/23 Date of admission: 12/15/23 06:03 Primary care physician: Rock Rodrigues MD DS: Diagnosis Discharge Diagnosis (1) Obesity: Status: Acute (2) Paraesophageal hernia: Status: Acute (3) Seizures: Status: Acute (4) Insomnia: Status: Acute (5) Anxiety: Status: Acute (6) Depression: Status: Acute (7) Hyperlipidemia: Status: Acute (8) Asthma: Status: Acute (9) Osteoarthritis: Status: Acute (10) Osteoporosis: Status: Acute (11) Hypothyroidism: Status: Acute (12) GERD (gastroesophageal reflux disease): Status: Acute (13) Steatosis, liver: Status: Acute (14) Status post repair of paraesophageal diaphragmatic hernia: Status: Acute (15) Intra-abdominal adhesions: Status: Acute DS: Summary Hospital Course Hospital Course: ADMITTING DIAGNOSIS:obesity, diaphragmatic hernia, hld, hypothyroid, asthma, anxiety, depression, seizure disorder ? DISCHARGE DIAGNOSIS: same, s/p laparoscopic repair diaphragmatic hernia, lysis of adhesions, ? PAST SURGICAL HISTORY: tonisllectomy, adenoidectomy, panniculectomy, sleeve gastrectomy, appendectomy, thyroidectomy ? PROCEDURE: upper endoscopy, laparoscopic repair of diaphragmatic hernia hernia, lysis of adhesions, gastropexy ? DISCHARGE SUMMARY: ? History of Present Illness: ? The patient is a?63 year-old woman with a BMI of?33.2 kg/m2 and associated co- morbidities as described above. The patient had extensive work-up,lost?11 lbs preoperatively and was electively scheduled for laparoscopic, possible open revision of sleeve gastrectomy, repair of diaphragmatic hernia and gastropexy. Risks and complications of the surgery were discussed with the patient in advance, particularly the possibility of , pulmonary embolism, anastomotic leak, bleeding, bowel injury, GERD, cardiac, renal or pulmonary complications. The patient understood all the risks and was in agreement with the surgical plan. ? Hospital Course: ? The patient underwent an uneventful laparoscopic repair of diaphragmatic hernia with gastropexy and lysis of adhesions on the day of admission. Postoperatively, the patient was transferred to the surgical floor. The patient received IV Acetaminophen and IV dilaudid for pain control. Patient was started on bariatric phase 1 diet POD #0. On postoperative day one, the patient was feeling well without nausea, vomiting, fevers, or tachycardia. The patient had some mild incisional pain and the abdomen was soft. ? On the morning of postoperative day one, the patient was continued on 1 ounce of water or ice every half hour. During the day, the patient did fairly well, having some incisional pain, but able to ambulate adequately and to tolerate liquids well. ? Since the patient is doing well, we decided that the patient was ready to be discharged. The patient was given instructions to follow-up with me next week and to call my office for any fever over 101, persistent abdominal pain, nausea, vomiting, GERD, symptoms of DVT such as calf tenderness, or leg swelling, or pulmonary embolism such as chest pain or shortness of breath. The patient was also instructed to drink 40-60 ounces of liquids per day using the 1-ounce cups. The patient had been given prescriptions for Tylenol for pain, Zofran prn for nausea, and pantoprazole and carafate previously. The patient was encouraged to ambulate and use the incentive spirometer. The patient was allowed to shower, but no baths, and encouraged to stay active at home. All of these instructions were given to the patient personally. All questions were answered and the patient understood all instructions, the instructions were also given to the patient in print. Time Attestation Total time managing care of this patient today: 25 mintues. Discharge Coordination Time (in mins): 25 Quality: Safe Use of Opioids Does Pt have an Active Cancer Diagnosis on the Problem List?: No Quality: Stroke Does the patient have a stroke diagnosis?: No Physical Exam Vital Signs: Vital Signs: Last Vital Signs Temp 97.2 F 12/15/23 11:03 Pulse 81 12/15/23 11:03 Resp 14 12/15/23 11:03 BP 130/72 12/15/23 11:03 Pulse Ox 96 12/15/23 11:03 O2 Del Method Nasal Cannula wit h Capnography 12/15/23 11:03 O2 Flow Rate 3 12/15/23 11:03 BMI result Body Mass Index 31.6 Discharge Plan Discharge Anticipated Discharge Date/Time: 12/16/23 10:00 Patient Disposition: Home, Self-Care Discharge Diagnosis: s/p laparoscopic lysis of adhesions, repair of diaphragmatic hernia and gastropexy Referrals: Name,MD Rock [Primary Care Provider] - 1 Week Discharge Medications: Continued Evenity 210mg/2.34mL ( 105mg/1.17mLx2) syringe 210 mg subcut .q month Qty: 2.34 11RF Rx Instructions: last dose wed12-14-23 sucralfate 1 gram tablet 1 g PO BEDTIME Qty: 30 1RF carisoprodol 350 mg tablet 350 mg PO QID venlafaxine 75 mg capsule,extended release 24hr 75 mg PO BEDTIME venlafaxine 150 mg capsule,extended release 24hr 150 mg PO BEDTIME buspirone 30 mg tablet 30 mg PO BID zolpidem 10 mg tablet 10 mg PO BEDTIME PRN (Reason: insomnia) ezetimibe 10 mg tablet 10 mg PO DAILY levothyroxine 137 mcg tablet 137 mcg PO DAILY@0600 tramadol 50 mg tablet 50 mg PO DAILY PRN (Reason: severe pain) acetaminophen [Tylenol Extra Strength] 500 mg Tablet 1,000 mg PO DAILY PRN (Reason: Pain) albuterol sulfate 90 mcg/actuation HFA aerosol inhaler 2 puff PO Q4-6H PRN (Reason: asthma) diclofenac sodium 1 % gel 1 ea topical BID PRN (Reason: Pain) oxcarbazepine 150 mg tablet 150 mg PO BID docusate sodium 100 mg capsule 100 mg PO BEDTIME Qty: 90 3RF bisacodyl [Dulcolax (bisacodyl)] 5 mg tablet,delayed release (DR/EC) 10 mg PO BEDTIME Qty: 180 4RF fluticasone propionate 50 mcg/actuation spray,suspension 1 spray intranasal DAILY loratadine 10 mg tablet 10 mg PO DAILY ondansetron HCl 4 mg tablet 4 mg PO Q6H PRN (Reason: nausea and vomiting) Qty: 14 0RF Discontinued thiamine HCl (vitamin B1) 100 mg tablet 100 mg PO DAILY Qty: 90 0RF omeprazole 40 mg capsule,delayed release(DR/EC) 40 mg PO DAILY@0630 tramadol 50 mg tablet 100 mg PO DAILY multivit with min-folic acid [Multivitamin Gummies] 200 mcg Tablet,Chewable 1 tab PO DAILY Discharge Orders: Discharge Order (Routine); Ordered 12/16/23 Ordered By: Jeremi Rowe Activity on Discharge: As tolerated Stand Alone Forms: Patient Portal Discharge page Print Language: Georgian Care Plan Goals: weight loss, improved gerd Health Concerns: obesity, gerd Plan of Treatment: This is a?[] yo [] who will start our SWL program to prepare for bariatric surge ry.? Blood work, CXR, ECG, Abd US and UGI have been ordered. She is being scheduled for initial consultations. She will start SWL classes and watch the first three videos before her next appointment. 1. You have been given a paper with a link to our software rashad ([email or web address]) to generate an individualized nutritional and exercise plan specific for you. Please send me a screenshot of the plans you will generate Meal to include lean meat (beef, fish, pork, turkey, chicken), or vietnamese yogurt, or egg whites, or beans with a salad with olive oil and fruits (berries, pears, apples, kiwi). Avoid salt, breads, potatoes, rice, pasta, desserts. 2. If you choose shakes, each shake would be drunk slowly, like coffee over a period of 2 hours. 3. If you choose bars, cut each bar in 4 pieces and eat each piece in 30 min to make each bar last 2 hours. 4. I emphasized the importance of measuring accurately the food portion and measure it when serving the food on a plate 5. The meal portions include a specific number of forks of meat (protein) and salad. You always eat the meat portion but you can replace up to half of salad/vegetables portion with rice, potatoes or pasta, or a fruit ?if you like. The less you do it the better weight loss will be. 6. One full-size fork is what can be scooped on the fork without falling aside and not what can be bit with the fork. Use regular forks like those you find in a typical restaurant. 7.? Please send me weight measurements from your body composition scale as soon as possible and then once a week. Always include your diet and exercise plan. The best time to weigh yourself is first thing in the morning after going to the bathroom. 8. The best choice for exercise would be []. Alternatively start walking outside daily, tracking calories with a goal of 300 calories per day, daily. You can download the rashad [employer] which can track your time, distance and calories while walking outside. You press start in the rashad when you start and then stop when you are finished. 9.?Goal is to lose at least 1.5-2 lbs per week, and about 10% before surgery, which is about [] pounds 10. Please follow the diet plan exactly without any change. If you don't like something about the plan or you feel hungry you need to communicate with me so I can help you revise the plan. My cell phone number to communicate with me by text is [phone] Patient is morbidly obese and is not considered stable at this time.?I spent a total of 70 minutes reviewing/updating records, examining the patient and counseling the patient on weight management as detailed above. Assessment: stable s/p laparoscopic lysis of adhesions, repair of diaphragmatic hernia and gastropexy Discharge Date/Time: 12/16/23 10:44
[2023-12-15 12:44] LABS: Hematocrit 39.3 % (37.0-47.0)
[2023-12-15 13:04] LABS: Anion Gap 11 (12-20); Blood Urea Nitrogen 16 mg/dL (9-16); Calcium 8.9 mg/dL (8.4-10.2); Carbon Dioxide 24 mmol/L (22-29); Chloride 108 mmol/L (96-108); Estimated Glomerular Filt Rate > 60; Glucose Random 132 mg/dL (60-115); Potassium 4.1 mmol/L (3.3-5.1); Sodium 139 mmol/L (135-145)
[2023-12-15] MEDS: HYDROmorphone HCl 0.5 MG/0.5 ML SYRINGE 0.25 MG IVPUSH ×2 (13:11→20:07)
[2023-12-15] MEDS: Acetaminophen 1,000 MG/100 ML PIGGYBACK 16.7 MG IV ×2 (14:16→20:13)
--- NOTE | 2023-12-15 15:03 | PHA.MEDREC ---
Addendum entered by Gogo [facility] 12/15/23 15:15: reviewed Original Note: Pharmacy Consult ? Medication Reconciliation Pharmacy has completed the medication reconciliation. Spoke to patient to confirm med list. Patient states Romosozumb-appg 210mg/2.34 ml Qmoth , last does was Wed12-14-23, Tramadol 100 mg Daily and 50 mg When needed (PRN), Levothyroxine 137 mcg is daily.
[2023-12-15] MEDS: Famotidine/PF 20 MG/2 ML VIAL IVPUSH (20:07)
[2023-12-15] MEDS: busPIRone HCl 10 MG TABLET 30 MG PO (20:08)
[2023-12-15] MEDS: OXcarbazepine 150 MG TABLET PO (20:09)
[2023-12-15] MEDS: Venlafaxine HCl ER 150 MG CAP.ER.24H PO (20:09)
[2023-12-15] MEDS: Venlafaxine HCl ER 75 MG CAP.ER.24H PO (20:09)
[2023-12-15] MEDS: Melatonin 3 MG TABLET PO (23:41)
[2023-12-16] MEDS: Acetaminophen 1,000 MG/100 ML PIGGYBACK 16.7 MG IV ×2 (02:13→07:14)
[2023-12-16 03:25] VITALS: BP 141/77; PULSE 66; RESP 18; TEMP 37.1; O2SAT 97
[2023-12-16] MEDS: Levothyroxine Sodium 112 MCG, Levothyroxine Sodium 25 MCG 137 MCG PO (05:54)
[2023-12-16 06:11] LABS: MANUAL DIFF FLAG NO
[2023-12-16 06:19] LABS: Basophils Percent Auto 0.3 % (0-2); Eosinophils Percent Auto 0.3 % (0-4); Hematocrit 34.4 % (37.0-47.0); Hemoglobin 11.5 g/dl (12.0-16.0); Imm Gran Abs Auto 0.02 X10*3/uL (0.00-0.03); Imm Gran Pct Auto 0.2 % (0.0-0.4); Lymphocytes Absolute Auto 2.7 X10*3/uL (1.2-4.9); Lymphocytes Percent Auto 30.5 % (20-40); Mean Corpuscular HGB Conc 33.4 g/dl (31.0-35.0); Mean Corpuscular Hemoglobin 28.4 pg (27.0-33.0); Mean Corpuscular Volume 84.9 fL (80.0-98.0); Mean Platelet Volume 12.6 fL (9.4-12.3); Monocytes Absolute Auto 0.7 X10*3/uL (0.1-1.2); Monocytes Percent Auto 7.8 % (2-11); Neutrophils Absolute Auto 5.3 x10*3/uL (2.0-8.3); Neutrophils Percent Auto 60.9 % (45-73); Platelet Count 262 X10*3/uL (160-400); Red Blood Count 4.05 X10*6/uL (4.20-5.50); Red Cell Distribution Width 13.8 % (11.0-16.0); White Blood Count 8.8 X10*3/uL (4.8-10.8)
[2023-12-16 06:42] LABS: Anion Gap 13 (12-20); Blood Urea Nitrogen 9 mg/dL (9-16); Calcium 8.5 mg/dL (8.4-10.2); Carbon Dioxide 22 mmol/L (22-29); Chloride 109 mmol/L (96-108); Creatinine Clr Calc Pharmacy 104.2; Estimated Glomerular Filt Rate > 60; Glucose Random 90 mg/dL (60-115); Potassium 3.8 mmol/L (3.3-5.1); Sodium 140 mmol/L (135-145)
[2023-12-16] MEDS: Famotidine/PF 20 MG/2 ML VIAL IVPUSH (07:12)
[2023-12-16] MEDS: busPIRone HCl 10 MG TABLET 30 MG PO (07:12)
[2023-12-16] MEDS: OXcarbazepine 150 MG TABLET PO (07:12)
[2023-12-16] MEDS: Loratadine 10 MG TABLET PO (07:12)
--- NOTE | 2023-12-16 07:28 | HO.POSTANES ---
Post Anesthesia Evaluation Post Anesthesia Evaluation Date of Service: 12/16/23 Vital Signs: Vital Signs Temp Pulse Resp BP Pulse Ox O2 Del Method 12/16/23 03:25 98.7 F 66 18 141/77 H 97 Room Air Anesthesia: General LMA Mental Status: Awake Pain Control: Satisfactory Nausea/Vomiting: None Hydration: Adequate Anesthesia-Related Issues: No Anes. Related Issues
[2023-12-16 07:56] VITALS: BP 139/70; PULSE 52; RESP 18; TEMP 36.6; O2SAT 98
--- NOTE | 2023-12-16 08:29 | MHC.CM.PN ---
IMM delivered. Patient lives in a home w/ . Uses a walking stick PRN. assists w/ ADL's PRN. PCP Rock Name HCP on file and verified. DP: Medically cleared for dc home self care. to transport. RN aware.
== END 2023-12-16 10:44 | disposition home or self-care (01) | DRG 620 ==
LOC: HO.SSSA 11:17 → HO.S3 11:22
PROVIDERS: Physician Assistant Surgical; Admitting Provider Surgery; PCP Internal Medicine Geriatric Medicine; Visit Provider Surgery
PROC: 0DB64Z3 Excision of Stomach, Percutaneous Endoscopic Approach, Vertical (ICD-10-PCS; principal; 2023-12-15 07:30)
DX: E66.01 Morbid (severe) obesity due to excess calories (principal); K44.0 Diaphragmatic hernia with obstruction, without gangrene; E89.0 Postprocedural hypothyroidism; Z68.31 Body mass index [BMI] 31.0-31.9, adult; J45.909 Unspecified asthma, uncomplicated; E78.5 Hyperlipidemia, unspecified; K21.9 Gastro-esophageal reflux disease without esophagitis; F32.A Depression, unspecified; F41.9 Anxiety disorder, unspecified; M54.9 Dorsalgia, unspecified; G89.29 Other chronic pain; Z87.891 Personal history of nicotine dependence; Z79.51 Long term (current) use of inhaled steroids; Z79.890 Hormone replacement therapy; Z79.899 Other long term (current) drug therapy
CPT/HCPCS: 36415; 80048; 85014; 85018; 85025; 86850; 86900; 86901; A4649; C9145; J0131; J0690; J1100; J1170; J2250; J2405; J2704; J2795; J3010; J7120

== ENCOUNTER → 2023-12-15 06:03 | Outpatient (BNV) | payer MEDICARE, MEDICAID, SELFPAY | PROVIDERS: Admitting Provider Surgery; PCP Internal Medicine Geriatric Medicine; Visit Provider Surgery | DX: E66.9 Obesity, unspecified (principal); K44.9 Diaphragmatic hernia without obstruction or gangrene; R56.9 Unspecified convulsions; G47.00 Insomnia, unspecified; F41.9 Anxiety disorder, unspecified; F32.A Depression, unspecified; E78.5 Hyperlipidemia, unspecified; J45.909 Unspecified asthma, uncomplicated; M19.90 Unspecified osteoarthritis, unspecified site; M81.0 Age-related osteoporosis without current pathological fracture; E03.9 Hypothyroidism, unspecified; K21.9 Gastro-esophageal reflux disease without esophagitis; K76.0 Fatty (change of) liver, not elsewhere classified; Z98.890 Other specified postprocedural states; Z87.19 Personal history of other diseases of the digestive system; K66.0 Peritoneal adhesions (postprocedural) (postinfection) | CPT/HCPCS: 43281; 43659; 99024; 99499 ==

== ENCOUNTER 2023-12-23 13:57 | Outpatient (AMB) | payer MEDICARE, MEDICAID, SELFPAY ==
--- NOTE | 2023-12-23 14:00 | MHC.OFFVISWM ---
VS Expanded 12/23/23 14:04 BP 139/60 Blood Pressure Location Rt brachial Blood Pressure Position Sitting Pulse 85 Pulse Source Pulse Oximeter Temp 95.4 F L Temperature Source Tympanic Pulse Oximetry 99 Oxygen Delivery Method Room Air Intake Visit Reasons: (OV) s/p Hiatal Hernia Repair 12/15/23 Allergies pravastatin Allergy (Severe, Verified 12/23/23 14:07) Blister Sulfa (Sulfonamide Antibiotics) Allergy (Severe, Verified 12/23/23 14:07) Itching HPI Comments Details: Very pleasant 63-year-old female returns to the office today in follow-up. She is 8 days status post hiatal hernia repair performed on 12/15/2023. She reports overall doing fairly well. She has been following the meal plan as outlined by Dr. Rowe including 2 pure protein shakes and a total of approximately 40 50 oz of fluid daily. She has moved her bowels. [facility] Medical History (Updated 12/21/23 @ 00:01 by Ang Davsi) Pre-op evaluation BMI 33.0-33.9,adult Steatosis, liver GERD (gastroesophageal reflux disease) Kidney stones Seizures Anxiety Depression Hyperlipidemia Osteoporosis Renal calculi Vitamin D deficiency History of thyroid cancer Hypothyroidism Chronic back pain Insomnia Diarrhea Osteoarthritis Anxiety and depression C. difficile colitis Asthma Hernia Surgical History (Updated 12/23/23 @ 14:07 by Cheyenne Lee [facility]) History of repair of hiatal hernia S/P gastric sleeve procedure H/O LEEP H/O lithotripsy History of hernia surgery H/O adenoidectomy History of tonsillectomy S/P panniculectomy H/O tubal ligation History of appendectomy H/O thyroidectomy Family History Mother Graves disease Social History Household Members: Family Housing: House Do you presently have visiting nurse or other home services: No Patient Tobacco Use Status: Former Tobacco user Cigarettes Per Day: 2 Years Smoked: 10 years service: No Current occupational status: unemployed Female Reproductive History Menstrual Age of Menarche: 14 Physical Exam GI Inspection: Yes incision (Clean, dry, intact.) Assessment & Plan Assessment & Plan (1) Status post repair of paraesophageal diaphragmatic hernia: Code(s): Z98.890 - Other specified postprocedural states; Z87.19 - Personal history of other diseases of the digestive system Category: Surgical Plan: Encouraged to follow the meal plan as directed by Dr. Rowe. Encouraged to continue to wear abdominal binder with exercise and activity for the next 2 weeks. She will return to the office in approximately 2-3 weeks.
[2023-12-23 14:04] VITALS: BP 139/60; PULSE 85; TEMP 35.2; O2SAT 99
== END 2023-12-23 14:29 | disposition home or self-care (01) ==
PROVIDERS: PCP Internal Medicine Geriatric Medicine; Visit Provider Physician Assistant Surgical
DX: Z98.890 Other specified postprocedural states (principal); Z87.19 Personal history of other diseases of the digestive system
CPT/HCPCS: 99024

== ENCOUNTER → 2023-12-23 13:57 | Outpatient (BNVA) | payer MEDICARE, MEDICAID, SELFPAY | PROVIDERS: PCP Internal Medicine Geriatric Medicine; Visit Provider Physician Assistant Surgical | DX: Z48.815 Encounter for surgical aftercare following surgery on the digestive system (principal); Z87.19 Personal history of other diseases of the digestive system; Z98.890 Other specified postprocedural states | CPT/HCPCS: 99212 ==

== ENCOUNTER 2024-01-10 13:32 | Outpatient (AMB) | payer MEDICARE, MEDICAID, SELFPAY ==
--- NOTE | 2024-01-10 13:52 | AM.OFFVISNUR ---
Intake Visit Reasons: evenity #8 Allergies pravastatin Allergy (Severe, Verified 12/23/23 14:07) Blister Sulfa (Sulfonamide Antibiotics) Allergy (Severe, Verified 12/23/23 14:07) Itching Office Meds romosozumab-aqqg 210 mg/2.34 mL(105 mg/1.17 mL x2)subcutaneous syringe Performing Provider: Oz Perez MD Performing [facility] [facility] Administered by: Glenis Mclaughlin RN on 01/10/24 13:52 Dose Route Admin Location Dispensed Lot Number Expiration Date [facility] Manager [place] 210 mg subcut bilateral upper arms 2.34 mL [id number] 01/23/26 28275-455-03 AMGEN Comments: Consent form signed. Pt tolerated injections well. Pt denies any adverse reactions with previous injections. Assessment & Plan Assessment & Plan Orders: Orders AMB Romosozumab Injection Patient Supplied Today M81.0 - Age-related osteoporosis without current pathological fracture Medications: New romosozumab-aqqg 210 mg (2.34 mL) subcut ONCE 2.34 mL 0RF M81.0 - Age-related osteoporosis without current pathological fracture
== END 2024-01-10 13:51 | disposition home or self-care (01) ==
PROVIDERS: PCP Internal Medicine Geriatric Medicine
DX: M81.0 Age-related osteoporosis without current pathological fracture (principal)

== ENCOUNTER → 2024-01-10 13:32 | Outpatient (BNVA) | payer MEDICARE, MEDICAID, SELFPAY | PROVIDERS: PCP Internal Medicine Geriatric Medicine | DX: M81.0 Age-related osteoporosis without current pathological fracture (principal) | CPT/HCPCS: 96372; J3111 ==

== ENCOUNTER 2024-01-13 10:00 | Outpatient (AMB) | payer MEDICARE, MEDICAID, SELFPAY ==
--- NOTE | 2024-01-13 10:04 | A.OFFVIS_ITS ---
VS Expanded 01/13/24 10:05 Height 5 ft 7 in Weight 192 lb 1 oz BMI 30.1 Intake Visit Reasons: (TV) s/p Hiatal Hernia Repair 12/15/23 Allergies pravastatin Allergy (Severe, Verified 12/23/23 14:07) Blister Sulfa (Sulfonamide Antibiotics) Allergy (Severe, Verified 12/23/23 14:07) Itching HPI Comments Details: Very pleasant 63-year-old female returns to the office today in follow-up. She is approximately 1 month status post hiatal hernia repair performed on 12/15/2023. Weight today is 192.1 pounds with a BMI of 30.1. She reports overall doing fairly well. no heartburn or reflux symptoms. She has been following the meal plan premier protein shakes, 2 scoops in 8 oz 1 % milk homemade soup meal w 5 oz protein, slightly more veggies 60 oz of fluid daily. exercise plan: none in the last couple weeks [facility] Medical History (Updated 12/21/23 @ 00:01 by Ang Davis) Pre-op evaluation BMI 33.0-33.9,adult Steatosis, liver GERD (gastroesophageal reflux disease) Kidney stones Seizures Anxiety Depression Hyperlipidemia Osteoporosis Renal calculi Vitamin D deficiency History of thyroid cancer Hypothyroidism Chronic back pain Insomnia Diarrhea Osteoarthritis Anxiety and depression C. difficile colitis Asthma Hernia Surgical History (Updated 12/23/23 @ 14:07 by Cheyenne Lee [facility]) History of repair of hiatal hernia S/P gastric sleeve procedure H/O LEEP H/O lithotripsy History of hernia surgery H/O adenoidectomy History of tonsillectomy S/P panniculectomy H/O tubal ligation History of appendectomy H/O thyroidectomy Family History Mother Graves disease Social History Household Members: Family Housing: House Do you presently have visiting nurse or other home services: No Patient Tobacco Use Status: Former Tobacco user Cigarettes Per Day: 2 Years Smoked: 10 years service: No Current occupational status: unemployed Female Reproductive History Menstrual Age of Menarche: 14 Telehealth Telehealth Telehealth Platform: Telephone Location of provider rendering services: practice address Location of patient: address on file Patient Identification confirmed using: Name, : Yes Telehealth method: voice only Patient verbally consented to treatment: Yes Patient verbally consented to billing insurance company: Yes Patient informed of any privacy concerns related to visit: Yes Minutes spent on Phone/Video with Pt.: 15 Assessment & Plan Assessment & Plan (1) Status post repair of paraesophageal diaphragmatic hernia: Code(s): Z98.890 - Other specified postprocedural states; Z87.19 - Personal history of other diseases of the digestive system Category: Surgical Plan: Patient is doing very well overall. She has no further reflux. I did suggest she change her meal plans slightly to decrease her scoop of Premier protein powder to 1 scoop if she is going to continue to use 1% milk. Additionally also decreasing her protein intake from 5 oz to 4 oz at night. Discussed the importance of resuming exercise activity, including cardiovascular. She inquired about swimming and I told her that she may resume swimming in 2 weeks. We will have her follow-up in the office as scheduled.
[2024-01-13 10:05] VITALS: BMI 30.1
== END 2024-01-13 10:21 | disposition home or self-care (01) ==
LOC: HO.HBS 10:18
PROVIDERS: PCP Internal Medicine Geriatric Medicine; Visit Provider Physician Assistant Surgical
DX: Z98.890 Other specified postprocedural states (principal); Z87.19 Personal history of other diseases of the digestive system
CPT/HCPCS: 99024

== ENCOUNTER → 2024-01-13 10:00 | Outpatient (BNVA) | payer MEDICARE, MEDICAID, SELFPAY | PROVIDERS: PCP Internal Medicine Geriatric Medicine; Visit Provider Physician Assistant Surgical | DX: Z48.815 Encounter for surgical aftercare following surgery on the digestive system (principal) | CPT/HCPCS: 99212 ==

== ENCOUNTER 2024-01-25 13:38 | Outpatient (REF) | payer MEDICARE, MEDICAID, SELFPAY ==
--- NOTE | ~2024-01-25 | MM_ITS ---
EXAMINATION: BONE DENSITOMETRY CLINICAL INDICATION: Age-related osteoporosis without current pathological fracture. COMPARISON: Baseline BD dated 01/20/2022. TECHNIQUE: Using a [employer] DXA System (software version: 13.1) manufactured by [employer], dual-energy x-ray absorptiometry was performed of the lumbar spine and left hip. The images are of good technical quality. Summary results are attached. FINDINGS: LEFT FEMUR, NECK: Current: BMD 0.884 g/cm2, Z-score -0.2, T-score -1.1, osteopenia. Baseline: BMD 0.920 g/cm2. LEFT FEMUR, TOTAL: Current: BMD 0.984 g/cm2, Z-score 0.4, T-score -0.2, normal, 2.9% decrease from baseline (<5% change is not significant). Baseline: BMD 1.013 g/cm2. AP SPINE L1-L4: Current: BMD 1.188 g/cm2, Z-score 0.8, T-score 0.1, normal, 34.2% increase from baseline (<5% change is not significant). Baseline: BMD 0.885 g/cm2. IDENTIFIED RISK FACTORS: Menopause, history of fracture (adult), anticonvulsant, osteoporosis, recurrent falls, rheumatoid arthritis, right oophorectomy, secondary osteoporosis (partial gastrectomy). HISTORY OF FRACTURE: Fibula. MEDICATIONS: Calcium, vitamin D, bisphosphonate. MM/XR DEXA axial skeleton IMPRESSION: 1. DIAGNOSIS: Osteopenia based on the lowest T-score value of -1.1 in the femoral neck applying World Health Organization criteria. 2. 10-YEAR FRACTURE RISK PREDICTION, FRAX: Not performed in this patient on estrogen or bone building treatments. 3. Treatment Recommendations: NOF guidelines recommend consideration for treatment in postmenopausal women and men age 50 and older presenting with the following: -A hip or vertebral (clinical or morphometric) fracture. -T-score less than or equal to -2.5 at the femoral neck or spine after appropriate evaluation to exclude secondary causes. -Low bone mass at the hip or spine and a 10-year fracture probability by FRAX of greater than or equal to 3% for hip fracture or greater than or equal to 20% for major osteoporotic fracture based on the [place] adapted WHO algorithm. 4. Other Recommendations: All treatment decisions require clinical judgment and consideration of individual patient factors, including patient preferences, comorbidities, previous drug use, risk factors not captured in the FRAX model (e.g. frailty, falls, vitamin D deficiency, increased bone turnover, interval significant decline in bone density) and possible under or overestimation of fracture risk by FRAX. Additional medical evaluation for secondary cause of low bone mineral density may be appropriate. FUTURE SCAN RECOMMENDATION: People with diagnosed cases of osteoporosis or at high risk for fracture should have regular bone mineral density tests. For patients eligible for Medicare, routine testing is allowed once every 2 years. The testing frequency can be increased to one year for patients who have rapidly progressing disease, those who are receiving or discontinuing medical therapy to restore bone mass, or have additional risk factors. Electronically signed by: Nathan Sampson MD 02/02/2024 06:15 PM EDT
== END 2024-01-25 13:39 | disposition home or self-care (01) ==
LOC: HO.MAMMO 13:38
PROVIDERS: PCP Internal Medicine Geriatric Medicine; Visit Provider Internal Medicine Endocrinology, Diabetes & Metabolism
DX: M81.0 Age-related osteoporosis without current pathological fracture (principal)
CPT/HCPCS: 77080

== ENCOUNTER → 2024-02-04 13:15 | Outpatient (BNV) | payer MEDICARE, SELFPAY | PROVIDERS: PCP Internal Medicine Geriatric Medicine; Visit Provider Internal Medicine | DX: Z12.31 Encounter for screening mammogram for malignant neoplasm of breast (principal) | CPT/HCPCS: 77063; 77067 ==

== ENCOUNTER 2024-02-04 13:36 | Outpatient (REF) | payer MEDICARE, SELFPAY ==
--- NOTE | ~2024-02-04 | MM_ITS ---
EXAMINATION: MM SCREENING DIGITAL BREAST TOMOSYNTHESIS, BILATERAL CLINICAL INFORMATION: Screening. Asymptomatic. COMPARISON: Mammography: Comparison is made with available priors TECHNIQUE: Digital breast mammography with tomosynthesis is performed in both the craniocaudal and mediolateral oblique views along with computer-aided detection (CAD). FINDINGS: There are scattered areas of fibroglandular density (ACR BI-RADS breast composition Category b). There are no significant masses, abnormal calcifications, or other abnormalities. MM/MM tomosynthesis screening BI IMPRESSION: No mammographic evidence of malignancy. ASSESSMENT: BI-RADS BI-RADS 1 - Negative RECOMMENDATION: Routine annual mammography screening. 1 year F/U This examination should not preclude the clinical evaluation of a suspicious palpable abnormality. This patient's information was entered into a reminder system with a target due date for their next mammogram. Electronically signed by: Kristal Santos DO 02/17/2024 09:42 PM EDT
== END 2024-02-04 13:37 | disposition home or self-care (01) ==
LOC: HO.MAMMO 13:36
PROVIDERS: PCP Internal Medicine Geriatric Medicine; Visit Provider Internal Medicine Geriatric Medicine
DX: Z12.31 Encounter for screening mammogram for malignant neoplasm of breast (principal)
CPT/HCPCS: 77063; 77067

== ENCOUNTER 2024-02-08 13:37 | Outpatient (AMB) | payer MEDICARE, MEDICAID, SELFPAY ==
--- NOTE | 2024-02-08 13:55 | AM.OFFVISNUR ---
Intake Visit Reasons: evenity #9 Allergies pravastatin Allergy (Severe, Verified 12/23/23 14:07) Blister Sulfa (Sulfonamide Antibiotics) Allergy (Severe, Verified 12/23/23 14:07) Itching Office Meds romosozumab-aqqg 210 mg/2.34 mL(105 mg/1.17 mL x2)subcutaneous syringe Performing Provider: Oz Perez MD [place] [facility] [place] Administered by: Glenis Mclaughlin RN on 02/08/24 13:55 Dose Route Admin Location Dispensed Lot Number Expiration Date [facility] Screw [employer] Type 210 mg subcut bilateral upper arms 2.34 mL [id number] 10/23/24 49204-812-45 AMGEN Comments: Consent form signed. Pt tolerated injection well. Pt denies any previous problems with injections. Assessment & Plan Assessment & Plan Orders: Orders AMB Romosozumab Injection Patient Supplied Today M81.0 - Age-related osteoporosis without current pathological fracture Medications: New romosozumab-aqqg 210 mg (2.34 mL) subcut ONCE 2.34 mL 0RF M81.0 - Age-related osteoporosis without current pathological fracture
== END 2024-02-08 13:54 | disposition home or self-care (01) ==
PROVIDERS: PCP Internal Medicine Geriatric Medicine
DX: M81.0 Age-related osteoporosis without current pathological fracture (principal)

== ENCOUNTER → 2024-02-08 13:37 | Outpatient (BNVA) | payer MEDICARE, MEDICAID, SELFPAY | PROVIDERS: PCP Internal Medicine Geriatric Medicine | DX: M81.0 Age-related osteoporosis without current pathological fracture (principal) | CPT/HCPCS: 96372; J3111 ==

== ENCOUNTER → 2024-02-14 11:30 | Outpatient (BNVA) | payer MEDICARE, MEDICAID, SELFPAY | PROVIDERS: PCP Internal Medicine Geriatric Medicine; Visit Provider Physician Assistant Surgical ==

== ENCOUNTER 2024-02-16 13:02 | Outpatient (REF) | payer MEDICARE, MEDICAID, SELFPAY ==
[2024-02-16 15:51] LABS: Free T4 (Free Thyroxine) 1.28 ng/dL (0.71-1.85); Thyroid Stimulating Hormone 0.09 uIU/mL (0.32-4.0)
[2024-02-21 23:58] LABS: Thyroglobulin Antibody <1 IU/mL (<=1); Thyroglobulin Level 0.1 ng/mL
== END 2024-02-16 13:03 | disposition home or self-care (01) ==
LOC: HO.LAB 13:02
PROVIDERS: PCP Internal Medicine Geriatric Medicine; Visit Provider Internal Medicine Endocrinology, Diabetes & Metabolism
DX: E03.9 Hypothyroidism, unspecified (principal); M81.0 Age-related osteoporosis without current pathological fracture; Z85.850 Personal history of malignant neoplasm of thyroid
CPT/HCPCS: 36415; 84432; 84439; 84443; 86800; 99212

== ENCOUNTER 2024-02-16 13:02 | Outpatient (AMB) | payer MEDICARE, MEDICAID, SELFPAY ==
[2024-02-16 13:06] VITALS: BP 110/72; PULSE 58; BMI 30.3
--- NOTE | 2024-02-16 13:06 | A.OFFVIS_ITS ---
Vital Signs 02/16/24 13:06 Height 5 ft 7 in Weight 193 lb 12.581 oz BMI 30.3 BP 110/72 Blood Pressure Location Lt brachial Position Sitting Pulse 58 Pulse Source Pulse Oximeter Intake Visit Reasons: f/u thyroid cancer and osteoporosis-conf Intake Note: Patient present today for thyroid cancer and osteoporosis follow up visit. Multi Purpose Machine Operator Required: No Accompanied by: Self / Same As Patient Allergies pravastatin Allergy (Severe, Verified 02/16/24 13:19) Blister Sulfa (Sulfonamide Antibiotics) Allergy (Severe, Verified 02/16/24 13:19) Itching HPI Comments Details: 64 YO Female with a PMHx of thyroid cancer s/p total thyroidectomy who is seen in F/U for a history of thyroid cancer and Osteoporosis. 1) History of thyroid cancer: She reports being diagnosed with thyroid cancer in 2011. She had a total thyroidectomy by Dr. Day in 2011 and subsequent I131 and followed with [facility]ology until 2018, but then was lost to F/U. Per [facility] documentation she was found to have PTC 1.3 cm, with multiple microscopic foci in the adjacent lobe. It is unclear what dose of I131 she was treated with. She remains on Levothyroxine 137 mcg PO daily. She takes this correctly. TG remains undetectable. She had an US head and neck which reveals no evidence of abnormal lymph nodes. 2) Osteoporosis: First diagnosed in 2014. She has never been treated in the past. Has 0-1 servings of dietary calcium per day. Takes 2 Tums per day which co ntains Calcium. Takes 1000 IU of Vitamin D daily. Denies ever using anticoagulant, antiepileptic or regular glucocorticoid medication. Currently does not exercise. Fracture history: Traumatic fracture of her L leg in 2014. 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 Menses always regular. . Breastfed for less than 6 months total. Menopause age 50, was induced by Lupron. Has a history of recurrent nephrolithiasis but is unsure what type of stones. Reports a family history of Osteoporosis but no hip fracture. UTD on dental cleanings and sees dentist every 6 months. No planned upcoming dental work or extractions. DXA: 01/20/2022 FINDINGS: AP SPINE L2-L3 (excluding L1 and L4):? The data of L1-L4 has been changed to exclude the L3 and L4 vertebral bodies because mild degenerative changes at these levels may cause overestimation of the lumbar spine density.? BMD 0.816 g/cm2, Z-score minus 3.1, T-score -3.2, osteoporosis. LEFT FEMUR, NECK: BMD 0.920 g/cm2, Z-score -0.3, T-score -0.9, normal. LEFT FEMUR, TOTAL: BMD 1.013 g/cm2, Z-score 0.2, T-score 0.0, normal. US Head and Neck: 01/14/2021 FINDINGS: Lymph nodes of normal size, morphology and echotexture are detected within the right and left neck. No lymphadenopathy. Within the right neck, the largest lymph nodes are 0.4 cm short axis dimension at level 1B and level 5B In the left neck, one of the largest lymph nodes is 0.3 cm short axis dimension at level 5B. No soft tissue mass or fluid collection. IMPRESSION: Normal lymph nodes are seen within the neck in this patient who has previously undergone thyroidectomy. There is no sonographic evidence of lymphadenopathy. Labs: Laboratory Tests 05/04/22 09/29/22 09/29/22 14:30 12:05 12:05 Creatinine 0.68 Estimated GFR > 60 Calcium 9.3 Phosphorus 2.5 L Albumin 4.1 PEP Interpretation SEE NOTE N-Telopeptide X-linked 25-OH Vitamin D Total 32.2 TSH 3.07 Free T4 1.04 Thyroglobulin PTH Intact 66 Calcium (PTH Intact) 9.0 Thyroglobulin Antibody 09/29/22 10/19/22 12:05 09:04 Creatinine Estimated GFR Calcium Phosphorus Albumin PEP Interpretation N-Telopeptide X-linked 63 25-OH Vitamin D Total TSH Free T4 Thyroglobulin <0.1 PTH Intact Calcium (PTH Intact) Thyroglobulin Antibody <1 Took alendronate but stopped 2 after taking 3-4 mos because of joint pains , Tibia fx in distant past . Recent DEXA showed showed dramatic increases in bone density as outlined below. Received 9 mos of Evenity FINDINGS: LEFT FEMUR, NECK: Current: BMD 0.884 g/cm2, Z-score -0.2, T-score -1.1, osteopenia. Baseline: BMD 0.920 g/cm2. LEFT FEMUR, TOTAL: Current: BMD 0.984 g/cm2, Z-score 0.4, T-score -0.2, normal, 2.9% decrease from baseline (<5% change is not significant). Baseline: BMD 1.013 g/cm2. AP SPINE L1-L4: Current: BMD 1.188 g/cm2, Z-score 0.8, T-score 0.1, normal, 34.2% increase from baseline (<5% change is not significant). Baseline: BMD 0.885 g/cm2. IDENTIFIED RISK FACTORS: Menopause, history of fracture (adult), anticonvulsant, osteoporosis, recurrent falls, rheumatoid arthritis, right oophorectomy, secondary osteoporosis (partial gastrectomy). HISTORY OF FRACTURE: Fibula. MEDICATIONS: Calcium, vitamin D, bisphosphonate. MM/XR DEXA axial skeleton IMPRESSION: 1. DIAGNOSIS: Osteopenia based on the lowest T-score value of -1.1 in the femoral neck applying World Health Organization criteria. [facility] Medical History (Updated 12/21/23 @ 00:01 by Ang Davis) Pre-op evaluation BMI 33.0-33.9,adult Steatosis, liver GERD (gastroesophageal reflux disease) Kidney stones Seizures Anxiety Depression Hyperlipidemia Osteoporosis Renal calculi Vitamin D deficiency History of thyroid cancer Hypothyroidism Chronic back pain Insomnia Diarrhea Osteoarthritis Anxiety and depression C. difficile colitis Asthma Hernia Surgical History (Updated 12/23/23 @ 14:07 by Cheyenne Lee [facility]) History of repair of hiatal hernia S/P gastric sleeve procedure H/O LEEP H/O lithotripsy History of hernia surgery H/O adenoidectomy History of tonsillectomy S/P panniculectomy H/O tubal ligation History of appendectomy H/O thyroidectomy Family History Mother Graves disease Social History Household Members: Family Housing: House Do you presently have visiting nurse or other home services: No Patient Tobacco Use Status: Former Tobacco user Cigarettes Per Day: 2 Years Smoked: 10 years service: No Current occupational status: unemployed Female Reproductive History Menstrual Age of Menarche: 14 Physical Exam Vital Signs: Last Vital Signs Pulse 58 02/16/24 13:06 BP 110/72 02/16/24 13:06 BMI result Body Mass Index 30.3 Const Other: Healed scar status post thyroidectomy Assessment & Plan Assessment & Plan (1) History of thyroid cancer: Code(s): Z85.850 - Personal history of malignant neoplasm of thyroid Category: Medical Plan: This is a 64-year-old white female status post total thyroid with PTC 1.3 cm, with multiple microscopic foci in the adjacent lobe. It is unclear what dose of I131 she was treated with. She is currently on levothyroxine 137 mcg. She appears to be clinically euthyroid. She had a slightly suppressed TSH level in 11/2023 Plan is to recheck TSH, free T4 and thyroglobulin and adjust levothyroxine accordingly. I will have patient follow up with Dr. Russ in annealing furnace operator and I will practice who has expertise in neck ultrasound and thyroid cancer (2) Osteoporosis: Code(s): M81.0 - Age-related osteoporosis without current pathological fracture Category: Medical Plan: History of osteoporosis with negative secondary workup. Currently on calcium and vitamin-D supplementation as well as alendronate 70 mg Q weekly in past . Urine NTX is suppressed. Recent DEXA showed very large increases in bone density into the mild osteopenic range Plan is to continue the Evenity for 3 more doses to make a complete year of therapy and then will transition patient to Reclast dose as patient can not tolerate p.o. alendronate due to gastrointestinal side effects Orders: Orders Thyroid Stimulating Hormone Today Z85.850 - Personal history of malignant n eoplasm of thyroid Free T4 (Free Thyroxine) Today Z85.850 - Personal history of malignant neoplasm of thyroid Thyroglobulin Tumor Marker Today Z85.850 - Personal history of malignant neoplasm of thyroid Coding Level of Care Code Est Pt Level 3 (59630) Diagnoses History of thyroid cancer Z85.850 Osteoporosis M81.0
== END 2024-02-16 13:32 | disposition home or self-care (01) ==
PROVIDERS: PCP Internal Medicine Geriatric Medicine; Visit Provider Internal Medicine Endocrinology, Diabetes & Metabolism
DX: Z85.850 Personal history of malignant neoplasm of thyroid (principal); M81.0 Age-related osteoporosis without current pathological fracture
CPT/HCPCS: 99213

== ENCOUNTER 2024-03-07 13:37 | Outpatient (AMB) | payer MEDICARE, MEDICAID, SELFPAY ==
--- NOTE | 2024-03-07 13:56 | AM.OFFVISNUR ---
Intake Visit Reasons: evenity #10 Allergies pravastatin Allergy (Severe, Verified 02/16/24 13:19) Blister Sulfa (Sulfonamide Antibiotics) Allergy (Severe, Verified 02/16/24 13:19) Itching Office Meds romosozumab-aqqg 210 mg/2.34 mL(105 mg/1.17 mL x2)subcutaneous syringe Performing Provider: Oz Perez MD Performing Location: [facility] [place] Endocrinology Administered by: Glenis Mclaughlin RN on 03/07/24 13:56 Dose Route Admin Location Dispensed Lot Number Expiration Date [facility] Foot Worker 210 mg subcut bilateral upper arms 2.34 mL [id number] 01/23/26 48868-112-46 AMGEN Comments: Patient consent form signed. Pt tolerated injection well and denies any problems with previous injection. Assessment & Plan Assessment & Plan Orders: Orders AMB Romosozumab Injection Patient Supplied Today M81.0 - Age-related osteoporosis without current pathological fracture Medications: New romosozumab-aqqg 210 mg (2.34 mL) subcut ONCE 2.34 mL 0RF M81.0 - Age-related osteoporosis without current pathological fracture
== END 2024-03-07 13:58 | disposition home or self-care (01) ==
PROVIDERS: PCP Internal Medicine Geriatric Medicine
DX: M81.0 Age-related osteoporosis without current pathological fracture (principal)

== ENCOUNTER → 2024-03-07 13:37 | Outpatient (BNVA) | payer MEDICARE, MEDICAID, SELFPAY | PROVIDERS: PCP Internal Medicine Geriatric Medicine | DX: M81.0 Age-related osteoporosis without current pathological fracture (principal) | CPT/HCPCS: 96372; J3111 ==

== ENCOUNTER 2024-03-17 10:30 | Outpatient (AMB) | payer MEDICARE, MEDICAID, SELFPAY ==
--- NOTE | 2024-03-17 10:34 | A.OFFVIS_ITS ---
VS Expanded 03/17/24 10:35 Height 5 ft 7 in Weight 182 lb 3 oz BMI 28.5 Intake Visit Reasons: (TV) s/p Hiatal Hernia Repair 12/15/23 Allergies pravastatin Allergy (Severe, Verified 02/16/24 13:19) Blister Sulfa (Sulfonamide Antibiotics) Allergy (Severe, Verified 02/16/24 13:19) Itching HPI Comments Details: Very pleasant 63-year-old female returns to the office today in follow-up. She is approximately 3 months status post hiatal hernia repair performed on 12/15/2023. Weight today is 182.3 pounds with a BMI of 28.5. She reports overall doing fairly well. no heartburn or reflux symptoms. Very happy with her outcome from her surgery. She has no complaints whatsoever She has been following the meal plan premier protein shake, rtd meal w protein and veggies, not measuring 60 oz of fluid daily. exercise plan: swimming, walking, 3-4 x per week [facility] Medical History (Updated 12/21/23 @ 00:01 by Ang Davis) Pre-op evaluation BMI 33.0-33.9,adult Steatosis, liver GERD (gastroesophageal reflux disease) Kidney stones Seizures Anxiety Depression Hyperlipidemia Osteoporosis Renal calculi Vitamin D deficiency History of thyroid cancer Hypothyroidism Chronic back pain Insomnia Diarrhea Osteoarthritis Anxiety and depression C. difficile colitis Asthma Hernia Surgical History History of repair of hiatal hernia S/P gastric sleeve procedure H/O LEEP H/O lithotripsy History of hernia surgery H/O adenoidectomy History of tonsillectomy S/P panniculectomy H/O tubal ligation History of appendectomy H/O thyroidectomy Family History Mother Graves disease Social History Household Members: Family Housing: House Do you presently have visiting nurse or other home services: No Patient Tobacco Use Status: Former Tobacco user Cigarettes Per Day: 2 Years Smoked: 10 years service: No Current occupational status: unemployed Female Reproductive History Menstrual Age of Menarche: 14 Telehealth Telehealth Telehealth Platform: Telephone Location of provider rendering services: practice address Location of patient: address on file Patient Identification confirmed using: Name, : Yes Telehealth method: voice only Patient verbally consented to treatment: Yes Patient verbally consented to billing insurance company: Yes Patient informed of any privacy concerns related to visit: Yes Minutes spent on Phone/Video with Pt.: 10 Assessment & Plan Assessment & Plan (1) Status post repair of paraesophageal diaphragmatic hernia: Code(s): Z98.890 - Other specified postprocedural states; Z87.19 - Personal history of other diseases of the digestive system Category: Surgical Plan: 3 months post hiatal hernia repair. No complaints whatsoever. Reflux has completely resolved. Encouraged to continue exercise as she is doing. Encouraged to have an additional half shake per day and measure her food quantities for a goal of approximately 65-70 g of protein per day. She may re turn to the office at any time in the future if she has any further problems.
[2024-03-17 10:35] VITALS: BMI 28.5
== END 2024-03-17 10:42 | disposition home or self-care (01) ==
LOC: HO.HBS 10:34
PROVIDERS: PCP Internal Medicine Geriatric Medicine; Visit Provider Physician Assistant Surgical
DX: E66.3 Overweight (principal); Z68.28 Body mass index [BMI] 28.0-28.9, adult; Z87.19 Personal history of other diseases of the digestive system
CPT/HCPCS: 98966

== ENCOUNTER → 2024-03-17 10:30 | Outpatient (BNVA) | payer MEDICARE, MEDICAID, SELFPAY | PROVIDERS: PCP Internal Medicine Geriatric Medicine; Visit Provider Physician Assistant Surgical ==

== ENCOUNTER 2024-04-04 14:30 | Outpatient (AMB) | payer MEDICARE, MEDICAID, SELFPAY ==
--- NOTE | 2024-04-04 14:33 | MHC.OFFVIS ---
Vital Signs 04/04/24 14:35 Height 5 ft 7 in Weight 194 lb 14.218 oz BMI 30.5 BP 158/84 H Blood Pressure Location Lt brachial Position Sitting Pulse 75 Pulse Source Pulse Oximeter Intake Visit Reasons: Osteoporosis/evenity #11 Intake Note: Patient present today for Osteoporosis and Evenity injection. Stage Rigger Required: No Accompanied by: Self / Same As Patient Allergies pravastatin Allergy (Severe, Verified 04/04/24 14:39) Blister Sulfa (Sulfonamide Antibiotics) Allergy (Severe, Verified 04/04/24 14:39) Itching HPI Comments Details: 64 YO Female with a PMHx of thyroid cancer s/p total thyroidectomy who is seen in F/U for a history of thyroid cancer and Osteoporosis. Today's visit focus on the osteoporosis ) Osteoporosis: First diagnosed in 2014. She has never been treated in the past. Has 0-1 servings of dietary calcium per day. Takes 2 Tums per day which contains Calcium. Takes 1000 IU of Vitamin D daily. Denies ever using anticoagulant, antiepileptic or regular glucocorticoid medication. Currently does not exercise. Fracture history: Traumatic fracture of her L leg in 2014. 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 Menses always regular. . Breastfed for less than 6 months total. Menopause age 50, was induced by Lupron. Has a history of recurrent nephrolithiasis but is unsure what type of stones. Reports a family history of Osteoporosis but no hip fracture. UTD on dental cleanings and sees dentist every 6 months. No planned upcoming dental work or extractions. DXA: 01/20/2022 FINDINGS: AP SPINE L2-L3 (excluding L1 and L4):? The data of L1-L4 has been changed to exclude the L3 and L4 vertebral bodies because mild degenerative changes at these levels may cause overestimation of the lumbar spine density.? BMD 0.816 g/cm2, Z-score minus 3.1, T-score -3.2, osteoporosis. LEFT FEMUR, NECK: BMD 0.920 g/cm2, Z-score -0.3, T-score -0.9, normal. LEFT FEMUR, TOTAL: BMD 1.013 g/cm2, Z-score 0.2, T-score 0.0, normal. US Head and Neck: 01/14/2021 FINDINGS: Lymph nodes of normal size, morphology and echotexture are detected within the right and left neck. No lymphadenopathy. Within the right neck, the largest lymph nodes are 0.4 cm short axis dimension at level 1B and level 5B In the left neck, one of the largest lymph nodes is 0.3 cm short axis dimension at level 5B. No soft tissue mass or fluid collection. IMPRESSION: Normal lymph nodes are seen within the neck in this patient who has previously undergone thyroidectomy. There is no sonographic evidence of lymphadenopathy. Labs: Laboratory Tests 05/04/22 09/29/22 09/29/22 14:30 12:05 12:05 Creatinine 0.68 Estimated GFR > 60 Calcium 9.3 Phosphorus 2.5 L Albumin 4.1 PEP Interpretation SEE NOTE N-Telopeptide X-linked 25-OH Vitamin D Total 32.2 TSH 3.07 Free T4 1.04 Thyroglobulin PTH Intact 66 Calcium (PTH Intact) 9.0 Thyroglobulin Antibody 09/29/22 10/19/22 12:05 09:04 Creatinine Estimated GFR Calcium Phosphorus Albumin PEP Interpretation N-Telopeptide X-linked 63 25-OH Vitamin D Total TSH Free T4 Thyroglobulin <0.1 PTH Intact Calcium (PTH Intact) Thyroglobulin Antibody <1 Took alendronate but stopped 2 after taking 3-4 mos because of joint pains , Tibia fx in distant past . Recent DEXA showed showed dramatic increases in bone density as outlined below. Received 9 mos of Evenity FINDINGS: LEFT FEMUR, NECK: Current: BMD 0.884 g/cm2, Z-score -0.2, T-score -1.1, osteopenia. Baseline: BMD 0.920 g/cm2. LEFT FEMUR, TOTAL: Current: BMD 0.984 g/cm2, Z-score 0.4, T-score -0.2, normal, 2.9% decrease from baseline (<5% change is not significant). Baseline: BMD 1.013 g/cm2. AP SPINE L1-L4: Current: BMD 1.188 g/cm2, Z-score 0.8, T-score 0.1, normal, 34.2% increase from baseline (<5% change is not significant). Baseline: BMD 0.885 g/cm2. IDENTIFIED RISK FACTORS: Menopause, history of fracture (adult), anticonvulsant, osteoporosis, recurrent falls, rheumatoid arthritis, right oophorectomy, secondary osteoporosis (partial gastrectomy). HISTORY OF FRACTURE: Fibula. MEDICATIONS: Calcium, vitamin D, bisphosphonate. MM/XR DEXA axial skeleton IMPRESSION: 1. DIAGNOSIS: Osteopenia based on the lowest T-score value of -1.1 in the femoral neck applying World Health Organization criteria. [facility] Medical History (Updated 12/21/23 @ 00:01 by Ang Davis) Pre-op evaluation BMI 33.0-33.9,adult Steatosis, liver GERD (gastroesophageal reflux disease) Kidney stones Seizures Anxiety Depression Hyperlipidemia Osteoporosis Renal calculi Vitamin D deficiency History of thyroid cancer Hypothyroidism Chronic back pain Insomnia Diarrhea Osteoarthritis Anxiety and depression C. difficile colitis Asthma Hernia Surgical History History of repair of hiatal hernia S/P gastric sleeve procedure H/O LEEP H/O lithotripsy History of hernia surgery H/O adenoidectomy History of tonsillectomy S/P panniculectomy H/O tubal ligation History of appendectomy H/O thyroidectomy Family History Mother Graves disease Social History Household Members: Family Housing: House Do you presently have visiting nurse or other home services: No Patient Tobacco Use Status: Former Tobacco user Cigarettes Per Day: 2 Years Smoked: 10 years service: No Current occupational status: unemployed Female Reproductive History Menstrual Age of Menarche: 14 Physical Exam Vital Signs: Last Vital Signs Pulse 75 04/04/24 14:35 BP 158/84 H 04/04/24 14:35 BMI result Body Mass Index 30.5 Office Meds romosozumab-aqqg 210 mg/2.34 mL(105 mg/1.17 mL x2)subcutaneous syringe Performing Provider: Oz Perez MD Performing Location: [facility] [place] Administered by: Glenis Mclaughlin RN on 04/04/24 15:09 Dose Route Admin Location Dispensed Lot Number Expiration Date [employer] Cheese [employer]er 210 mg subcut bilateral upper arms 2.34 mL [id number] 07/24/26 50677-879-49 AMGEN Comments: Consent form signed by patient. Pt tolerated injection well. Pt denies any problem or adverse reaction with previous injections. Assessment & Plan Assessment & Plan (1) Osteoporosis: Code(s): M81.0 - Age-related osteoporosis without current pathological fracture Category: Medical Plan: History of osteoporosis with negative secondary workup. Currently on calcium and vitamin-D supplementation as well as alendronate 70 mg Q weekly in past . Urine NTX is suppressed. Recent DEXA showed very large increases in bone density into the mild osteopenic range after receiving several months of Evenity Plan is to continue the Evenity for 2 more doses to make a complete year of therapy and then will transition patient to Reclast dose or alendronate but patient had difficulty tolerating alendronate in the past Orders: Orders AMB Romosozumab Injection Patient Supplied Today M81.0 - Age-related osteoporosis without current pathological fracture Referrals Infusion Center Notification M81.0 - Age-related osteoporosis without current pathological fracture Coding Level of Care Code Est Pt Level 3 (73170) Diagnoses Osteoporosis M81.0
[2024-04-04 14:35] VITALS: BP 158/84; PULSE 75; BMI 30.5
--- OUTSIDE RECORDS SUMMARY | 2024-04-05 22:07 | XMS_ITS | Data Portability ---
Author Organization [place] - [facility], [facility], [facility] Address [address] [place] [phone] Care Team Providers Care Transplanter Orchid Name Role Phone RITA MICHEL Referring Provider Assessment No assessment recorded. Plan of Treatment Reminders Order Date Submit Date Provider Last Modified By Organization Details Last Modified Time Details Appointments None recorded. Lab None recorded. Referral None recorded. Procedures None recorded. Surgeries None recorded. Imaging None recorded. Medication Orders Augmentin 875 mg-125 mg tablet 2020 021 [facility]AK [id number], [address] [place], [address], 11:35:58 tramadol 50 mg tablet 2020 021 [id number] [facility], [address] [place], [address], 11:40:00 Patient TargetsNo targets recorded. Patient Instructions Encounter Date Encounter Id Patient Instructions Last Modified By Organization Details Last Modified Time 09/11/2020 [id number] Follow-up with PCP, or if can't get in with PCP, at the walk-in if no better or ER if any worse, or any red flag symptoms. Patient voiced understanding and agreement with treatment plan. [email or web address] Not available 09/11/2020 16:39:46 Reason for Referral None Reported. Problems Name Problem SNOMED Code Status Onset Date Resolution Date Notes Provider Name and Address Organization Details Recorded Time Hypercholes terolemia 87514919 Active 2020 Elissa clements [place] - [facility], [facility] 10:58:44 Insomnia 128925389 [facility] 11:06:37 Depressive disorder 67083665 Active 2020 Elissa clements [facility], [facility] 11:06:55 Anxiety 24882233 Active 2020 Elissa clements [facility], [facility] 11:07:11 Hyperthyroi dism 96457253 [facility] 2020 [facility] 11:07:58 Carcinoma of thyroid 787605423 Active 2020 [facility] 11:08:23 Acid reflux 853814701 Active 2020 [facility] 11:08:33 Gastroesoph ageal reflux disease 562096199 Active 2020 [facility] 11:09:08 History of back pain 1608192808415 02 [facility] Problem Notes None recorded. Medical Equipment None Reported. Allergies Allergen ID Allergen Name Allergen Category Reaction Reaction Severity Criticality Documentation Date Start Date Code Code System Note Provider Name and Address Organization Details Recorded Time 788288 Product containin g 3-hydroxy -3-methyl glutaryl- coenzyme A reductase inhibitor (product) medicatio n anaphylax is itching rash Not available Not available Not available Not available 09/11/2020 89545 009 [facility]ED [facility] 10:49:15 957666 Substance with sulfonami de structure and antibacte rial mechanism of action (substanc e) medicatio n itching rash Not available Not available Not available 09/11/2020 47672 8003 SNOMED [facility] 10:49:15 Medications Name Sig Start Date Stop Date Status Note LastModified by Organization Details LastModified Time Augmentin 875 mg-125 mg tablet Take 1 tablet every 12 hours by oral route for 10 days. 2020 active Not Available Not Available Not Avai lable Effexor 25 mg tablet Take 1 tablet 3 times a day by oral route. active Not Available Not Available No t Available tramadol 50 mg tablet Take 1 tablet every 6 hours by oral route for 10 days. 2020 active Not Available Not Available Not Avai lable buspirone 10 mg tablet Take 1 tablet twice a day by oral route. active Not Available Not Available No t Available Effexor 100 mg tablet Take 1 tablet twice a day by oral route. active Not Available Not Available No t Available omeprazole 20 mg capsule,delayed release Take 1 capsule every day by oral route. active Not Available Not Available No t Available Ambien 10 mg tablet Take 1 tablet every day by oral route. active Not Available Not Available No t Available ezetimibe 10 mg tablet Take 1 tablet every day by oral route. active Not Available Not Available No t Available levothyroxine 125mg active Not Available Not Available Not Available Soma 250 mg tablet Take 1 tablet 3 times a day by oral route. active Not Available Not Available No t Available Vitals Date Recorded Body weight Body mass index (BMI) Body height Body temperature Heart rate Oxygen saturation Oxygen saturation in Arterial blood by Pulse oximetry Respiratory rate Systolic blood pressure Diastolic blood pressure Provider Name and Address Organization Details Last Updated DateTime 1 979720. 09 g 39.2 kg/m2 170.18 cm 96.8 [degF] 82 /min 98 % 98 % 17 /min 124 mm[Hg] 80 mm[Hg] Elissa Loredo [facility], [facility] 10:55:03 Social History Question Answer Notes LastModified by Organizat ion Details LastModified Time Tobacco Smoking Status Former Smoker Elissa clements [facility], [facility] 09/11/2020 10:49:15 How Much Tobacco Do You Chew? None [email or web address] Information not available 09/11/2020 Do You Or Have You Ever Used E-cigarettes Or Vape? Never Used Electronic Cigarettes [email or web address] Information not available 09/11/2020 Marital Status [email or web address] Informatio n not available 09/11/2020 Do You Or Have You Ever Used Smokeless Tobacco? Never Used Smokeless Tobacco [email or web address] Information not available 09/11/2020 How Much Tobacco Do You Smoke? No [email or web address] Information not available 09/11/2020 Sex: Unknown Functional Status None recorded. Mental Status None recorded. Family History Relationship Description Onset Age of this Age Resolved Age Notes LastModified by Organization Details LastModified Time Unspecified Relation Family history of malignant neoplasm [email or web address] Not available 09/11 10:59:06 Medical History Condition Response Cancer (location) Y Other N Gout N Thyroid Disease Y Kidney Stones N Emphysema/COPD N Measles/Mumps N Arthralgia N Yeast Infection N Sexually Transmitted Disease N Blood Clots N Wheezing N Depression Y Prostate Problems N Vascular Disease N Rash/Skin Condition N Amputation (location) N Parkinson's N Paralysis N Headaches/Migraines N Cardiac Pacemaker/defibrillator N Nerve Damage / Neuropathy N Arthritis N Sleep disorder/Insomnia Y Heart disease / Heart Attack N Artificial Joint N Crohn's Disease N HIV/AIDS N Shortness of Breath N Stroke/TIA N Colon Problems N High Cholesterol Y Serious Injuries N Dialysis N Kidney Disease N Memory Loss/Alzheimer's N Chronic Cough N High blood pressure N Gallbladder disease N Congestive heart failure N Falls N Blood Thinner Treatment N Alcohol Overuse N Hormone Replacement N Nervous Breakdown N Dougherty's Esophagus N Anemia N Chest Pain N Urinary Problems N Colon Polyps N Gastritis N Hospitalizations (other than operations) N Back pain Y Diabetes N Rheumatic Fever N Bleeding Disorder N Cardiac Arrhythmias /irregular heart rat e N Osteopenia/Osteoporosis N Heart Murmur N inflammation of vein N Phlebitis N Anxiety/Stress Y Asthma N Vision Problems N Erectile / Sexual Dysfunction N Epilepsy N Morning Cough N Ostomies (location) N Seizures N Jaundice N Sleep Apnea N Hepatitis N Cirrhosis N Fainting N GERD/Ulcer Y Bronchitis N Chicken Pox N Allergies (other than meds) N Gynecological HistoryNo gynecological history recorded. Obstetrics History GPAL:G 0 P 0 0 0 0 Past Encounters Encounter ID Performer Location Encounter Start Date Encounter Closed Date Diagnosis/Indication Diagnosis SNOMED-CT Code Diagnosis ICD10 Code [id number] MD ASHELY [facility] [address] [place] [id number] 09/11/2020 10:30:20 09/11/2020 11:53:48 Acute periodontal abscess 77674006 K05.219 Chronic back pain 020733 002 G89.29 Health Concerns Section Related Observation LastModified by Organization Detai ls LastModified Time None Recorded Concern Status LastModified by Organization Details LastModified Time None Recorded Advance Directives Directive None Recorded Payers Encounter Date Sequence Insurance Name Policy Number Policy Walls Covered Member ID Walls Member ID Guarantor Name 09/11/2020 1 [place] Coleen Polo [id number] Coleen Polo Notes Date Note Type Note Provider Name and Address Organization Details Recorded Time 09/11/2020 text/html CORONAVIRUS SCREENING TOOL Are you experiencing any NEW symptom(s) listed below that is not due to another health problem None of the below Is anyone else in your household experiencing any NEW symptoms No In the past 2 weeks did you have close contact (within 6 feet for at least 15 minutes) with someone with symptoms of COVID-19 or who tested positive for COVID-19 No In the past 2 weeks have you been tested for COVID-19 No, I have not been tested Why did you get tested? Please select all that apply N/A In the past 2 weeks has someone in your household tested positive for COVID-19 No Have you ever received a dose of COVID-19 vaccine? Yes Which vaccine product did you receive? Moderna How many doses have you received? 2 doses Imported from [place] on 09/11/2020 60yo F c/o left lower dental pain for 5 days. She is here visiting for another week. Prior to flying down she saw a dentist who dx and treated her for an acute periodontal abscess. She is taking Clindamycin as directed. She did not have an I and D performed. She states there is some improvement of the swelling, but she is still in severe pain. She takes Tramadol for chronic back pain prescribed by PCP and has been taking every 6 hours religiously for her dental pain which offers significant relief. She states she only has a few left and requests refill. She will f/u with her dentist when she is back home. She does not yet have an appointment to see a dentist in [place]. She denies fever/chills or other symptoms. Jennie Williamson MD [address] [facility] [address], [place], [address], [facility] - [facility], [facility] 09/11/2020 21:53:38 OBGyn Episode No OBEpisode recorded.
== END 2024-04-04 15:09 | disposition home or self-care (01) ==
PROVIDERS: PCP Internal Medicine Geriatric Medicine; Visit Provider Internal Medicine Endocrinology, Diabetes & Metabolism
DX: M81.0 Age-related osteoporosis without current pathological fracture (principal)
CPT/HCPCS: 99213

== ENCOUNTER → 2024-04-04 14:30 | Outpatient (BNVA) | payer MEDICARE, MEDICAID, SELFPAY | PROVIDERS: PCP Internal Medicine Geriatric Medicine; Visit Provider Internal Medicine Endocrinology, Diabetes & Metabolism | DX: M81.0 Age-related osteoporosis without current pathological fracture (principal); R29.6 Repeated falls; M06.9 Rheumatoid arthritis, unspecified; Z90.3 Acquired absence of stomach [part of]; Z90.721 Acquired absence of ovaries, unilateral; Z78.0 Asymptomatic menopausal state; Z79.620 Long term (current) use of immunosuppressive biologic | CPT/HCPCS: 96372; 99212; J3111 ==

== ENCOUNTER 2024-04-18 13:21 | Outpatient (REF) | payer MEDICARE, MEDICAID, SELFPAY ==
[2024-04-18 13:42] LABS: Methadone Screen, Urine Not Detected (Not Detect)
[2024-04-24 10:15] LABS: PCP Confirmation GC/MS Urine NEGATIVE
== END 2024-04-18 13:22 | disposition home or self-care (01) ==
LOC: HO.HHCLNP 13:21
PROVIDERS: Visit Provider Internal Medicine Geriatric Medicine
DX: G89.4 Chronic pain syndrome (principal)
CPT/HCPCS: 36415; 80307; 83992

== ENCOUNTER 2024-05-04 13:58 | Outpatient (AMB) | payer MEDICARE, MEDICAID, SELFPAY ==
--- NOTE | 2024-05-04 14:21 | AM.OFFVISNUR ---
Intake Visit Reasons: [facility] #12 Allergies pravastatin Allergy (Severe, Verified 04/04/24 14:39) Blister Sulfa (Sulfonamide Antibiotics) Allergy (Severe, Verified 04/04/24 14:39) Itching Office Meds romosozumab-aqqg 210 mg/2.34 mL(105 mg/1.17 mL x2)subcutaneous syringe Performing Provider: Oz Perez MD Performing Location: [facility] Endocr[facility]ology Administered by: Glenis Mclaughlin RN on 05/04/24 14:26 Dose Route Admin Location Dispensed Lot Number Expiration Date [facility] Apart[employer] Le[employer] 210 mg subcut bilateral upper arms 2.34 mL [id number] 07/24/26 46097-792-61 [employer]GEN Comments: consent form signed by patient. tolerated injections well. denies adverse reactions to previous injections. This was the pt's last Evenity injection. Pt aware of treatment plan going forward. Assessment & Plan Assessment & Plan Orders: Orders AMB Romosozumab Injection Patient Supplied Today M81.0 - Age-related osteoporosis without current pathological fracture Medications: New romosozumab-aqqg 210 mg (2.34 mL) subcut ONCE 2.34 mL 0RF M81.0 - Age-related osteoporosis without current pathological fracture
--- OUTSIDE RECORDS SUMMARY | 2024-05-04 15:09 | XMS_ITS | Data Portability ---
Author Organization [place] - [facility], [facility], [facility] Address [address] [place] [phone] Care Team Providers Care Casing Man Name Role Phone RITA MICHEL Referring Provider Assessment No assessment recorded. Plan of Treatment Reminders Order Date Submit Date Provider Last Modified By Organization Details Last Modified Time Details Appointments None recorded. Lab None recorded. Referral None recorded. Procedures None recorded. Surgeries None recorded. Imaging None recorded. Medication Orders Augmentin 875 mg-125 mg tablet 2020 021 IS[id number], [address] [place], [address], 11:35:58 tramadol 50 mg tablet 2020 021 [id number] [facility], [address] [place], [address], 11:40:00 Patient TargetsNo targets recorded. Patient Instructions Encounter Date Encounter Id Patient Instructions Last Modified By Organization Details Last Modified Time 09/11/2020 [id number] Follow-up with PCP, or if can't get in with PCP, at the walk-in if no better or ER if any worse, or any red flag symptoms. Patient voiced understanding and agreement with treatment plan. Not available 09/11/2020 16:39:46 Reason for Referral None Reported. Problems Name Problem SNOMED Code Status Onset Date Resolution Date Notes Provider Name and Address Organization Details Recorded Time Hypercholes terolemia 21987559 Active 2020 Elissa clements [place] - [facility], [facility] 10:58:44 Insomnia 707379070 [facility] 11:06:37 Depressive disorder 25704229 Active 2020 Elissa clements [facility], [facility] 11:06:55 Anxiety 08530827 Active 2020 Elissa clements [facility], [facility] 11:07:11 Hyperthyroi dism 78521071 [facility] 2020 [facility] 11:07:58 Carcinoma of thyroid 506171749 Active 2020 [facility] 11:08:23 Acid reflux 573666518 Active 2020 [facility] 11:08:33 Gastroesoph ageal reflux disease 035081720 [facility] 2020 [facility] 11:09:08 History of back pain 4176109667584 02 [facility] Problem Notes None recorded. Medical Equipment None Reported. Allergies Allergen ID Allergen Name Allergen Category Reaction Reaction Severity Criticality Documentation Date Start Date Code Code System Note Provider Name and Address Organization Details Recorded Time 510646 Product containin g 3-hydroxy -3-methyl glutaryl- coenzyme A reductase inhibitor (product) medicatio n anaphylax is itching rash Not available Not available Not available Not available 09/11/2020 32993 009 [facility]ED [facility] 10:49:15 000102 Substance with sulfonami de structure and antibacte rial mechanism of action (substanc e) medicatio n itching rash Not available Not available Not available 09/11/2020 86727 8003 SN[facility]ED [facility] 10:49:15 Medications Name Sig Start Date [...] Address Organization Details Last Updated DateTime 1 725771. 09 g 39.2 kg/m2 170.18 cm 96.8 [degF] 82 /min 98 % 98 % 17 /min 124 mm[Hg] 80 mm[Hg] Elissa Loredo [facility] Physician [facility], [facility] 10:55:03 Social History Question Answer Notes LastModified by Organizat ion Details LastModified Time Tobacco Smoking Status Former Smoker Elissa clements [facility], [facility] 09/11/2020 10:49:15 How Much Tobacco Do You Chew? None [email or web address] Information not available 09/11/2020 Do You Or Have You Ever Used E-cigarettes Or Vape? Never Used Electronic Cigarettes [email or web address] Information not available 09/11/2020 Marital Status [email or web address] Informatio n not available 09/11/2020 Do You Or Have You Ever Used Smokeless Tobacco? Never Used Smokeless Tobacco [email or web address] Information not available 09/11/2020 How Much Tobacco Do You Smoke? No [email or web address] Information not available 09/11/2020 Sex: Unknown Functional Status None recorded. Mental Status None recorded. Family History Relationship Description Onset Age of this Age Resolved Age Notes LastModified by Organization Details LastModified Time Unspecified Relation Family history of malignant neoplasm [email or web address] Not available 09/11 10:59:06 Medical History Condition [...] Diagnosis/Indication Diagnosis SNOMED-CT Code Diagnosis ICD10 Code Diagnosis Note [id number] MD [facility] [address] [place] [id number] 09/11/2020 10:30:20 09/11/2020 11:53:48 Acute periodontal abscess 07347736 K05.219 Acute. Initial Encounter. Not controlled . Will add Augmentin 875-125 BID x 10 days. (No CKD per pt) Continue Clindamyci n as directed. She is taking probiotics already. Discussed new medication , possible side effects, and risk of CDiff with Clinda as well as other abx. Tramadol offers good pain control. I will send refill until she can f/u with PCP up [facility]. She is encouraged to see a dentist in [place] prior to flying back next week. She will call Dr. Melo who she has seen previously . She may need to have this drained. Soft foods only. Tylenol/Mo addis for pain prn. every 6 hours. ER for acute changes Chronic back pain 124488 002 G89.29 Chronic, controlled with Tramadol, stable F/U with PCP up [facility] Health Concerns Section Related Observation LastModified by Organization Detai ls LastModified Time None Recorded Concern Status LastModified by Organization Details LastModified Time None Recorded Advance Directives Directive None Recorded Payers Encounter Date Sequence Insurance Name Policy Number Policy Walls Covered Member ID Walls Member ID Guarantor Name 09/11/2020 1 [place]ARE[place] ([place]ICARE[place] Coleen Polo [id number] Coleen Polo Notes Date Note Type [...] have you received? 2 doses Imported from [place] on 09/11/2020 60yo F c/o left lower [...] an appointment to see a dentist in [place]. She denies fever/chills or other symptoms. Jennie Williamson MD [address] [address], [place], [address], [facility] - [facility], [facility] 09/11/2020 21:53:38 OBGyn Episode No OBEpisode recorded.
== END 2024-05-04 14:20 | disposition home or self-care (01) ==
PROVIDERS: PCP Internal Medicine Geriatric Medicine
DX: M81.0 Age-related osteoporosis without current pathological fracture (principal)

== ENCOUNTER → 2024-05-04 13:58 | Outpatient (BNVA) | payer MEDICARE, MEDICAID, SELFPAY | PROVIDERS: PCP Internal Medicine Geriatric Medicine | DX: M81.0 Age-related osteoporosis without current pathological fracture (principal) | CPT/HCPCS: 96372; J3111 ==

== ENCOUNTER 2024-05-18 13:30 | Outpatient (AMB) | payer MEDICARE, MEDICAID, SELFPAY ==
--- NOTE | 2024-05-18 13:31 | A.OFFVIS_ITS ---
Vital Signs 05/18/24 13:33 Height 5 ft 7.58 in Weight 191 lb 5.78 oz BMI 29.5 BP 116/62 Blood Pressure Location Lt brachial Position Sitting Pulse 66 Pulse Source Pulse Oximeter Intake Visit Reasons: osteoporosis Intake Note: Patient present today for Osteoporosis follow up. Java Jsf Developer Required: No Accompanied by: Self / Same As Patient Allergies pravastatin Allergy (Severe, Verified 05/18/24 13:35) Blister Sulfa (Sulfonamide Antibiotics) Allergy (Severe, Verified 05/18/24 13:35) Itching Medication List - Last Reconciled 05/18/24 by Oz Perez MD acetaminophen (Tylenol Extra Strength) 1,000 mg PO DAILY PRN albuterol sulfate 90 mcg/actuation 2 puffs PO Q4-6H PRN bisacodyl (Dulcolax (bisacodyl)) 10 mg (2 x 5 mg) PO BEDTIME buspirone 30 mg PO BID carisoprodol 350 mg PO QID diclofenac sodium 1% 1 ea topical BID PRN docusate sodium 100 mg PO BEDTIME ezetimibe 10 mg PO DAILY fluticasone propionate 50 mcg/actuation 1 spray intranasal DAILY hydrochlorothiazide 12.5 mg PO DAILY levothyroxine 125 mcg PO DAILY loratadine 10 mg PO DAILY ondansetron 4 mg PO Q8H PRN oxcarbazepine 150 mg PO BID romosozumab-aqqg (Evenity) 210 mg (2.34 mL) subcut .q month sucralfate 1 g PO BEDTIME tramadol 50 mg PO DAILY PRN venlafaxine ER 75 mg PO BEDTIME venlafaxine ER 150 mg PO BEDTIME zolpidem 10 mg PO BEDTIME PRN HPI Comments Details: 64 YO Female with a PMHx of thyroid cancer s/p total thyroidectomy who is seen in F/U for a history of thyroid cancer and Osteoporosis. Today's visit focus on the osteoporosis ) Osteoporosis: First diagnosed in 2014. She has never been treated in the past. Has 0-1 servings of dietary calcium per day. Takes 2 Tums per day which contains Calcium. Takes 1000 IU of Vitamin D daily. Denies ever using anticoagulant, antiepileptic or regular glucocorticoid medication. Currently does not exercise. Fracture history: Traumatic fracture of her L leg in 2014. 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 Menses always regular. . Breastfed for less than 6 months total. Menopause age 50, was induced by Lupron. Has a history of recurrent nephrolithiasis but is unsure what type of stones. Reports a family history of Osteoporosis but no hip fracture. UTD on dental cleanings and sees dentist every 6 months. No planned upcoming dental work or extractions. DXA: 01/20/2022 FINDINGS: AP SPINE L2-L3 (excluding L1 and L4):? The data of L1-L4 has been changed to exclude the L3 and L4 vertebral bodies because mild degenerative changes at these levels may cause overestimation of the lumbar spine density.? BMD 0.816 g/cm2, Z-score minus 3.1, T-score -3.2, osteoporosis. LEFT FEMUR, NECK: BMD 0.920 g/cm2, Z-score -0.3, T-score -0.9, normal. LEFT FEMUR, TOTAL: BMD 1.013 g/cm2, Z-score 0.2, T-score 0.0, normal. US Head and Neck: 01/14/2021 FINDINGS: Lymph nodes of normal size, morphology and echotexture are detected within the right and left neck. No lymphadenopathy. Within the right neck, the largest lymph nodes are 0.4 cm short axis dimension at level 1B and level 5B In the left neck, one of the largest lymph nodes is 0.3 cm short axis dimension at level 5B. No soft tissue mass or fluid collection. IMPRESSION: Normal lymph nodes are seen within the neck in this patient who has previously undergone thyroidectomy. There is no sonographic evidence of lymphadenopathy. Labs: Laboratory Tests 05/04/22 09/29/22 09/29/22 14:30 12:05 12:05 Creatinine 0.68 Estimated GFR > 60 Calcium 9.3 Phosphorus 2.5 L Albumin 4.1 PEP Interpretation SEE NOTE N-Telopeptide X-linked 25-OH Vitamin D Total 32.2 TSH 3.07 Free T4 1.04 Thyroglobulin PTH Intact 66 Calcium (PTH Intact) 9.0 Thyroglobulin Antibody 09/29/22 10/19/22 12:05 09:04 Creatinine Estimated GFR Calcium Phosphorus Albumin PEP Interpretation N-Telopeptide X-linked 63 25-OH Vitamin D Total TSH Free T4 Thyroglobulin <0.1 PTH Intact Calcium (PTH Intact) Thyroglobulin Antibody <1 Took alendronate but stopped 2 after taking 3-4 mos because of joint pains , Tibia fx in distant past . Recent DEXA showed showed dramatic increases in bone density as outlined below. Received 11 mos of Evenity last dose to be given this month followed by a dose of Reclast next month FINDINGS: LEFT FEMUR, NECK: Current: BMD 0.884 g/cm2, Z-score -0.2, T-score -1.1, osteopenia. Baseline: BMD 0.920 g/cm2. LEFT FEMUR, TOTAL: Current: BMD 0.984 g/cm2, Z-score 0.4, T-score -0.2, normal, 2.9% decrease from baseline (<5% change is not significant). Baseline: BMD 1.013 g/cm2. AP SPINE L1-L4: Current: BMD 1.188 g/cm2, Z-score 0.8, T-score 0.1, normal, 34.2% increase from baseline (<5% change is not significant). Baseline: BMD 0.885 g/cm2. IDENTIFIED RISK FACTORS: Menopause, history of fracture (adult), anticonvulsant, osteoporosis, recurrent falls, rheumatoid arthritis, right oophorectomy, secondary osteoporosis (partial gastrectomy). HISTORY OF FRACTURE: Fibula. MEDICATIONS: Calcium, vitamin D, bisphosphonate. MM/XR DEXA axial skeleton IMPRESSION: 1. DIAGNOSIS: Osteopenia based on the lowest T-score value of -1.1 in the femoral neck applying World Health Organization criteria. [facility] Medical History (Updated 12/21/23 @ 00:01 by Ang Davis) Pre-op evaluation BMI 33.0-33.9,adult Steatosis, liver GERD (gastroesophageal reflux disease) Kidney stones Seizures Anxiety Depression Hyperlipidemia Osteoporosis Renal calculi Vitamin D deficiency History of thyroid cancer Hypothyroidism Chronic back pain Insomnia Diarrhea Osteoarthritis Anxiety and depression C. difficile colitis Asthma Hernia Surgical History History of repair of hiatal hernia S/P gastric sleeve procedure H/O LEEP H/O lithotripsy History of hernia surgery H/O adenoidectomy History of tonsillectomy S/P panniculectomy H/O tubal ligation History of appendectomy H/O thyroidectomy Family History Mother Graves disease Social History Household Members: Family Housing: House Do you presently have visiting nurse or other home services: No Patient Tobacco Use Status: Former Tobacco user Cigarettes Per Day: 2 Years Smoked: 10 years service: No Current occupational status: unemployed Female Reproductive History Menstrual Age of Menarche: 14 Physical Exam Vital Signs: BMI result Body Mass Index 29.5 Assessment & Plan Assessment & Plan (1) Osteoporosis: Code(s): M81.0 - Age-related osteoporosis without current pathological fracture Category: Medical Plan: History of osteoporosis with negative secondary workup. Currently on calcium and vitamin-D supplementation as well as evenity completing course. Urine NTX is suppressed. Recent DEXA showed very large increases in bone density into the mild osteopenic range after receiving several months of Evenity Plan is to give a dose of Reclast dose scheduled for next month. We will check a basic metabolic panel and calcium level prior Orders: Orders Basic Metabolic Panel Fasting Today M81.0 - Age-related osteoporosis without current pathological fracture Calcium Today M81.0 - Age-related osteoporosis without current pathological fracture Albumin Level Today M81.0 - Age-related osteoporosis without current pa thological fracture Collagen Crosslinks NTX 3 Months M81.0 - Age-related osteoporosis without current pathological fracture Coding Level of Care Code Est Pt Level 3 (85463) Diagnoses Osteoporosis M81.0
[2024-05-18 13:33] VITALS: BP 116/62; PULSE 66; BMI 29.5
== END 2024-05-18 13:55 | disposition home or self-care (01) ==
PROVIDERS: PCP Internal Medicine Geriatric Medicine; Visit Provider Internal Medicine Endocrinology, Diabetes & Metabolism
DX: M81.0 Age-related osteoporosis without current pathological fracture (principal)
CPT/HCPCS: 99213

== ENCOUNTER → 2024-05-18 13:30 | Outpatient (BNVA) | payer MEDICARE, MEDICAID, SELFPAY | PROVIDERS: PCP Internal Medicine Geriatric Medicine; Visit Provider Internal Medicine Endocrinology, Diabetes & Metabolism | DX: M81.0 Age-related osteoporosis without current pathological fracture (principal) | CPT/HCPCS: 99212 ==

== ENCOUNTER 2024-05-22 12:52 | Outpatient (AMB) | payer MEDICARE, MEDICAID, SELFPAY ==
[2024-05-22 13:05] VITALS: BP 102/76; PULSE 76; BMI 29.6
--- NOTE | 2024-05-22 13:05 | A.OFFVIS_ITS ---
Vital Signs 05/22/24 13:05 Height 5 ft 7 in Weight 188 lb 14.978 oz BMI 29.6 BP 102/76 Blood Pressure Location Lt brachial Position Sitting Pulse 76 Pulse Source Pulse Oximeter Intake Visit Reasons: Thyroid cancer Intake Note: Patient present today for Thyroid cancer office visit. Napper Tender Required: No Accompanied by: Self / Same As Patient Allergies pravastatin Allergy (Severe, Verified 05/22/24 13:24) Blister Sulfa (Sulfonamide Antibiotics) Allergy (Severe, Verified 05/22/24 13:24) Itching Medication List - Last Reconciled 05/22/24 by Adeola Russ MD acetaminophen (Tylenol Extra Strength) 1,000 mg PO DAILY PRN albuterol sulfate 90 mcg/actuation 2 puffs PO Q4-6H PRN bisacodyl (Dulcolax (bisacodyl)) 10 mg (2 x 5 mg) PO BEDTIME buspirone 30 mg PO BID carisoprodol 350 mg PO QID diclofenac sodium 1% 1 ea topical BID PRN docusate sodium 100 mg PO BEDTIME ezetimibe 10 mg PO DAILY fluticasone propionate 50 mcg/actuation 1 spray intranasal DAILY hydrochlorothiazide 12.5 mg PO DAILY levothyroxine 125 mcg PO DAILY loratadine 10 mg PO DAILY ondansetron 4 mg PO Q8H PRN oxcarbazepine 150 mg PO BID romosozumab-aqqg (Evenity) 210 mg (2.34 mL) subcut .q month sucralfate 1 g PO BEDTIME tramadol 50 mg PO DAILY PRN venlafaxine ER 75 mg PO BEDTIME venlafaxine ER 150 mg PO BEDTIME zolpidem 10 mg PO BEDTIME PRN HPI Comments Details: 64 YO Female with a PMHx of thyroid cancer s/p total thyroidectomy in 06/[address] 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 pT1b Nx, AJCC stage I, JOSE initial low risk of recurrence Status post remnant ablation 08/2011 with I 131, Currently JOSE excellent response to therapy. who is seen in F/U for a history of thyroid cancer. She also follows at our practice for osteoporosis with Dr. Perez. Last visit was 05/18/2024. This was not addressed today. History of PTC in detail 06/2011: Total thyroidectomy with Dr. Cynthia Day at [facility] with p athology showing multifocal follicular variant of PTC 1.3 X 1 X 0.7 cm focus in the right thyroid lobe with 2 microscopic foci in adjacent lobe., with no evidence of extrathyroidal extension, no lymphovascular invasion. pT1b Nx, AJCC stage I, JOSE initial low risk of recurrence 08/2011: remnant radioactive iodine ablation 12/24/2014: Ultrasound neck without any abnormal lymphadenopathy 08/2016: Ultrasound neck without any abnormal lymphadenopathy [facility] records show that her thyroglobulin remained undetectable with negative TG antibody Subsequently she was lost to follow up. In 2020 she established care at [facility] endocrinology practice. 01/14/2021 : ultrasound head and neck without any abnormal lymphadenopathy Interval history 02/16/2024: TSH 0.09, free T4 1.28, thyroglobulin 0.1, TG antibody less than 1 Levothyroxine decreased from 137 mcg to 125 mcg after January results Good adherence and administration Reports difficulty swallowing with food for the past 6 months. Reports worsening. Feels voice is deeper. Mother had Graves disease Maternal aunt : thyroid cancer Is on meds for constipation. Reports lost 10 lbs since summer 2023. Reports anxiety and palpitations that are chronic. Denies tremors. Reports hair loss. Denies having ever used lithium, amiodarone or biotin supplements. Physical exam General: sitting comfortably in no acute distress HEENT: normocephalic/atraumatic Neck: supple, symmetrical Cardiac: normal heart sounds Pulm: normal breath sounds B/L, no added breath sounds Abd: not distended, no tenderness Extremities: no edema, no signs of myxedema Laboratory Tests 11/20/20 10/01/21 05/04/22 12:24 11:43 14:30 TSH 1.66 0.07 L 3.46 Free T4 1.06 1.25 1.14 Thyroglobulin <0.1 L <0.1 L Thyroglobulin Antibody <1 <1 09/29/22 05/18/23 09/29/23 12:05 12:25 12:14 TSH 3.07 0.59 0.24 L Free T4 1.04 1.40 1.28 Thyroglobulin <0.1 Thyroglobulin Antibody <1 12/07/23 02/16/24 11:55 13:52 TSH 0.21 L 0.09 L Free T4 1.33 1.28 Thyroglobulin 0.1 H Thyroglobulin Antibody <1 US SOFT TISSUE NECK 01/14/21 CLINICAL INFORMATION: History of malignant neoplasm of thyroid gland. Thyroidectomy 10 years ago. COMPARISON: None TECHNIQUE: Ultrasound of the neck soft tissues is performed with high- frequency jain-scale imaging and color Doppler. Images were acquired at levels I through V of each neck. FINDINGS: Lymph nodes of normal size, morphology and echotexture are detected within the right and left neck. No lymphadenopathy. Within the right neck, the largest lymph nodes are 0.4 cm short axis dimension at level 1B and level 5B In the left neck, one of the largest lymph nodes is 0.3 cm short axis dimension at level 5B. No soft tissue mass or fluid collection. US/US soft tiss head and/or neck IMPRESSION: Normal lymph nodes are seen within the neck in this patient who has previously undergone thyroidectomy. There is no sonographic evidence of lymphadenopathy. [facility] Medical History (Updated 05/22/24 @ 13:54 by Adeola Russ MD) Pre-op evaluation BMI 33.0-33.9,adult Steatosis, liver GERD (gastroesophageal reflux disease) Kidney stones Seizures Anxiety Depression Hyperlipidemia Osteoporosis Renal calculi Vitamin D deficiency History of thyroid cancer Hypothyroidism Chronic back pain Insomnia Diarrhea Osteoarthritis Anxiety and depression C. difficile colitis Asthma Hernia Surgical History History of repair of hiatal hernia S/P gastric sleeve procedure H/O LEEP H/O lithotripsy History of hernia surgery H/O adenoidectomy History of tonsillectomy S/P panniculectomy H/O tubal ligation History of appendectomy H/O thyroidectomy Family History Mother Graves disease Social History Household Members: Family Housing: House Do you presently have visiting nurse or other home services: No Patient Tobacco Use Status: Former Tobacco user Cigarettes Per Day: 2 Years Smoked: 10 years service: No Current occupational status: unemployed Female Reproductive History Menstrual Age of Menarche: 14 Assessment & Plan Assessment & Plan (1) History of thyroid cancer: Code(s): Z85.850 - Personal history of malignant neoplasm of thyroid Category: Medical Plan: 64 YO Female with a PMHx of thyroid cancer s/p total thyroidectomy in 06/[address] 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 pT1b Nx, AJCC stage I, JOSE initial low risk of recurrence Status post remnant ablation 08/2011 with I 131, Currently JOSE excellent response to therapy. who is seen in F/U for a history of thyroid cancer. Her TG levels have remained undetectable over the past few years, consistent with the excellent response to therapy. Last thyroid ultrasound in done in 2020 also did not show any abnormal lymph nodes. We will plan to repeat a neck ultrasound now. We will also check her tumor markers. Back in January 2024, TSH was noted to be low, and dose of levothyroxine was decreased from 137 to 125 mcg daily. No repeat labs done. Given excellent response to therapy goal TSH 0.5-2. Plan: -ordered TSH, free T4, TG and TG antibody levels -ordered ultrasound of the neck -continue levothyroxine 125 mcg daily , we will let her know if dose needs to be adjusted after blood work has resulted -follow up in 6 weeks to discuss results of the ultrasound (2) Hypothyroidism: Code(s): E03.9 - Hypothyroidism, unspecified Category: Medical Qualifiers: Hypothyroidism type: postoperative Qualified Code(s): E89.0 - Postprocedural hypothyroidism Plan: Currently on levothyroxine 125 mcg daily. Goal TSH 0.5-2. Plan: -ordered TSH, free T4, TG and TG antibody levels -continue levothyroxine 125 mcg daily , we will let her know if dose needs to be adjusted after blood work has resulted Plan I spent 30 minutes in reviewing the record, seeing the patient and documenting in the medical record. Orders: Orders Thyroglobulin Antibodies Today E03.9 - Hypothyroidism, unspecified, Z85.850 - Personal history of malignant neoplasm of thyroid Thyroid Stimulating Hormone Today E03.9 - Hypothyroidism, unspecified, Z85.850 - Personal history of malignant neoplasm of thyroid Free T4 (Free Thyroxine) Today E03.9 - Hypothyroidism, unspecified, Z85.850 - Personal history of malignant neoplasm of thyroid Thyroglobulin Today E03.9 - Hypothyroidism, unspecified, Z85.850 - Personal history of malignant neoplasm of thyroid Thyroglobulin Tumor Marker Today E03.9 - Hypothyroidism, unspecified, Z85.850 - Personal history of malignant neoplasm of thyroid US soft tiss head and/or neck Today E03.9 - Hypothyroidism, unspecified, Z85.850 - Personal history of malignant neoplasm of thyroid Patient Instructions: Do thyroid blood work continue levothyroxine 125 mcg daily , if your blood work shows your dose needs adjustment we will give you a call Do neck ultrasound , someone will call to schedule this Follow up in 6 weeks to discuss results Coding Level of Care Code Est Pt Level 4 (03453) Complex EM visit Add On G2211 Diagnoses History of thyroid cancer Z85.850 Postoperative hypothyroidism E89.0 Hypothyroidism type: postoperative Time Spent (min) 30
--- OUTSIDE RECORDS SUMMARY | 2024-05-22 17:33 | XMS_ITS | Data Portability ---
Author Organization [place] - [employer] [facility], [facility], [facility] Address [address] [place] [id number] Care Team Providers Care Rn Progressive Care Name Role Phone RITA MICHEL Referring Provider Assessment No assessment recorded. Plan of Treatment Reminders Order Date Submit Date Provider Last Modified By Organization Details Last Modified Time Details Appointments None recorded. Lab None recorded. Referral None recorded. Procedures None recorded. Surgeries None recorded. Imaging None recorded. Medication Orders Augmentin 875 mg-125 mg tablet 2020 021 [id number], [address] [place], [address], 11:35:58 tramadol 50 mg tablet 2020 021 [id number], [address] [place], [address], 11:40:00 Patient TargetsNo targets recorded. Patient Instructions Encounter Date Encounter Id Patient Instructions Last Modified By Organization Details Last Modified Time 09/11/2020 [id number] Follow-up with PCP, or if can't get in with PCP, at the walk-in if no better or ER if any worse, or any red flag symptoms. Patient voiced understanding and agreement with treatment plan. [email or web address] Not available 09/11/2020 16:39:46 Reason for Referral None Reported. Problems Name Problem SNOMED Code Status Onset Date Resolution Date Notes Provider Name and Address Organization Details Recorded Time Hypercholes terolemia 97599955 Active 2020 Elissa clements [place] [facility], [facility] 10:58:44 Insomnia 560410093 [facility] 11:06:37 Depressive disorder 08028062 Active 2020 Elissa clements [facility], [facility] 11:06:55 Anxiety 61412653 Active 2020 Elissa clements [facility], [facility] 11:07:11 Hyperthyroi dism 62214119 Active 2020 [facility] 11:07:58 Carcinoma of thyroid 289889188 Active 2020 [facility] 11:08:23 Acid reflux 177624436 Active 2020 [facility] 11:08:33 Gastroesoph ageal reflux disease 468170286 Active 2020 [facility] 11:09:08 History of back pain 3257719953422 02 [facility] [address] [facility] 11:09:21 Problem Notes None recorded. Medical Equipment None Reported. Allergies Allergen ID Allergen Name Allergen Category Reaction Reaction Severity Criticality Documentation Date Start Date Code Code System Note Provider Name and Address Organization Details Recorded Time 793991 Product containin g 3-hydroxy -3-methyl glutaryl- coenzyme A reductase inhibitor (product) medicatio n anaphylax is itching rash Not available Not available Not available Not available 09/11/2020 67730 009 SN[facility]ED [facility] 10:49:15 486919 Substance with sulfonami de structure and antibacte rial mechanism of action (substanc e) medicatio n itching rash Not available Not available Not available 09/11/2020 48987 8003 SNOMED [facility] 10:49:15 Medications Name Sig Start Date Stop [...] t Available Vitals Date Recorded Body weight Provider Name an d Address Organization Details Last Updated DateTime 09/11/2020 045318.09 g Elissa Loredo [facility] 09/11/2020 10:52:10 Date Recorded Body mass index (BMI) Body height Provider Name and Address Organization Details Last Updated DateTime 09/11/2020 39.2 kg/m2 170.18 cm Elissa Loredo [facility], [facility] 09/11/2020 10:52:13 Date Recorded Body temperature Provider Name a nd Address Organization Details Last Updated DateTime 09/11/2020 96.8 [degF] Elissa Loredo [facility] 09/11/2020 10:52:33 Date Recorded Heart rate Provider Name an d Address Organization Details Last Updated DateTime 09/11/2020 82 /min Elissa [facility] 09/11/2020 10:52:37 Date Recorded Oxygen saturation Oxygen saturation in Arterial blood by Pulse oximetry Provider Name and Address Organization Details Last Updated DateTime 09/11/2020 98 % 98 % Elissa Facundo [facility], [facility] 09/11/2020 10:52:39 Date Recorded Respiratory rate Provider Name a nd Address Organization Details Last Updated DateTime 09/11/2020 17 /min Elissa Facundo [facility], [facility] 09/11/2020 10:52:43 Date Recorded Systolic blood pressure Diastolic blood pressure Provider Name and Address Organization Details Last Updated DateTime 09/11/2020 124 mm[Hg] 80 mm[Hg] Elissa Loredo [facility], [facility] 09/11/2020 10:55:03 Social History Question Answer Notes LastModified by Organizat ion Details LastModified Time Tobacco Smoking Status Former Smoker Elissa clements [facility] 09/11/2020 10:49:15 How Much Tobacco Do You Chew? None [email or web address] Information not available 09/11/2020 Do You Or Have You Ever Used E-cigarettes Or Vape? Never Used Electronic Cigarettes [email or web address] Information not available 09/11/2020 Marital Status Informatio n not available 09/11/2020 Do You Or Have You Ever Used Smokeless Tobacco? Never Used Smokeless Tobacco Information not available 09/11/2020 How Much Tobacco Do You Smoke? No [email or web address] Information not available 09/11/2020 Sex: Unknown Functional Status None recorded. Mental Status None recorded. Family History Relationship Description Onset Age of this Age Resolved Age Notes LastModified by Organization Details LastModified Time Unspecified Relation Family history of malignant neoplasm [email or web address] Not available 09/11 10:59:06 Medical History Condition [...] SNOMED-CT Code Diagnosis ICD10 Code Diagnosis Note [id number] Jennie Williamson MD [facility] [address] [facility] [address] [place] [address] 09/11/2020 10:30:20 09/11/2020 11:53:48 Acute periodontal abscess 85238584 K05.219 Acute. Initial Encounter. Not controlled . Will add Augmentin 875-125 BID x 10 days. (No CKD per pt) Continue Clindamyci n as directed. She is taking probiotics already. Discussed new medication , possible side effects, and risk of CDiff with Clinda as well as other abx. Tramadol offers good pain control. I will send refill until she can f/u with PCP [place]. She is encouraged to see a dentist in [place] prior to flying back next week. She will call Dr. Melo who she has seen previously . She may need to have this drained. Soft foods only. Tylenol/Mo addis for pain prn. every 6 hours. ER for acute changes Chronic back pain 386352 002 G89.29 Chronic, controlled with Tramadol, stable F/U with PCP [facility] Health Concerns Section Related Observation LastModified by Organization Detai ls LastModified Time None Recorded Concern Status LastModified by Organization Details LastModified Time None Recorded Advance Directives Directive None Recorded Payers Encounter Date Sequence Insurance Name Policy Number Policy Walls Covered Member ID Walls Member ID Guarantor Name 09/11/2020 1 [place] ([place] Coleen Polo [id number] Coleen Polo Notes Date Note Type [...] have you received? 2 doses Imported from [employer] on 09/11/2020 60yo F c/o left lower [...] an appointment to see a dentist in [place]. She denies fever/chills or other symptoms. Jennie Williamson MD [address] [address], [place], [address], [facility], [facility] 09/11/2020 21:53:38 OBGyn Episode No OBEpisode recorded.
--- OUTSIDE RECORDS SUMMARY | 2024-05-22 17:33 | XMS_ITS | Encounter Summary ---
Author Organization [employer] Address [address] [facility] 7 [place] [address] Care Team Providers Care Air Analysis Engineering Technician Name Role Phone Name, Rock DE PAZ Primary Care Provider [phone] Reason for Visit * Reason Onset Date Comments Medication Question 05/31/2023 Encounter Details Date Type Department Care Team ([facility] st Contact Info) Description 05/31/2023 Telephone [facility] [address] [place] [address] [phone] Name, MD Rock [address] [place], [place] [phone] Medication Question Social History Tobacco Use Types Packs/Day Years Used Date Smoking Tobacco: Former Cigarettes Smokeless Tobacco: Never Alcohol Use Standard Drinks/Week Comments Yes 0 (1 standard drink = 0.6 oz pur e alcohol) Ocassions (twice yearly) Depression Answer Date Recorded Patient Health Questionnaire-9 Score 21 11/20/2022 Housing Stability Answer Date Recorded What is your housing situation today? I have sarah ruffin 02/08/[address] you li ve. Do you have problems with any of the following? None of the above 02/08/2023 Food Insecurity Answer Date Recorded Within the past 12 months, y ou worried that your food would run out before you got money to buy more: Never True 02/08/2023 Within the past 12 months,th e food you bought just didn't last and you didn't have enough money to get more: Never True Transportation Answer Date Recorded In the past 12 months, has l ack of transportation kept you from medical appts, meetings, work or from getting things needed for daily living? No 02/08/2023 Utilities Answer Date Recorded In the past 12 months, has t he electric, gas, oil or water company threatened to shut off services in your home? No 02/08/2023 Depression Answer Date Recorded Patient Health Questionnaire-2 Score 6 11/20/2022 Comments Unknown Sex and Gender Information Value Date Recorded Sex Assigned at Female 02/23/2022 10:29 AM EDT Legal Sex Female 10:29 AM EDT Gender Identity Female 02/23/2022 10:29 AM EDT Sexual Orientation Straight 02/23/2022 10 :29 AM EDT documented as of this encounter Miscellaneous Notes * Telephone Encounter - Alfredo Brunson RN - 05/31/2023 2:28 PM EST T/C to pt. For below message, pt. Wants to discuss medication, Pimwall which has to be injected every single day and Levaradi which is once a week . pt. Advised to call [facility] because medication was prescribe by [facility]. 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 PCP is managing kidney related function and low phosphorus so want to discuss about these medication. Pt. Advised that message will be sent to PCP for review. Please review and advise. Tc from pt requesting to speak with provider in regards to two medications that are being offered by the [facility] which are Pimwall which has to be injected every single day and Levaradi which is once a week . Pt would like to discuss this with PCP or nurse to verify if it's okay and which medication should she go for due to her medical History. Please contact pt @ [phone] * Telephone Encounter - Esperanza Bravo - 05/31/2023 2:02 PM EST Tc from pt requesting to speak with provider in regards to two medications that are being offered by the [facility] which are Pimwall which has to be injected every single day and Levaradi whichis once a week . Pt would like to discuss this with PCP or nurse to verify if it's okay and which medication should she go for due to her medical History. Please contact pt @ [phone] documented in this encounter Plan of Treatment Upcoming Encounters Date Type Department Care Team ([facility] st Contact Info) Description 07/17/2024 1:00 PM EDT Clinical Support [facility] [address] [place] [address] Corrie Chen, SCOUT documented as of this encounter Visit Diagnoses Not on filedocumented in this encounter Additional Health Concerns Assessment Noted Time PHQ-9 Depression Total Score: 21 11/20/ 023 10:14 AM EDT documented as of this encounter Care Teams Air Analysis Engineering Technician Relationship Specialty Start Date End Date Name, MD Rock [address] [place] [id number] PCP - General Family Medicine 07/04/15 documented as of this encounter
--- OUTSIDE RECORDS SUMMARY | 2024-05-22 17:33 | XMS_ITS | Encounter Summary ---
Author Organization [employer] Address [address] [place] [address] 7 [place] [address] Care Team Providers Care Epic Professional Name Role Phone Name, Rock DE PAZ Primary Care Provider [phone] Reason for Visit * Reason Comments Med Refill Encounter Details Date Type Department Care Team ([facility] Contact Info) Description 09/21/2022 Refill [facility] MEDICINE [address] [place] [address] [phone] Name, MD Rock [address] [place] [address] Insomnia, unspecified type; Pain Social History Tobacco Use Types Packs/Day Years Used Date Smoking Tobacco: Former Cigarettes Smokeless Tobacco: Never Alcohol Use Standard Drinks/Week Comments Not Currently 0 (1 standard drink = 0.6 oz pur e alcohol) Comments Unknown Sex and Gender Information Value Date Recorded Sex Assigned at Female 02/23/2022 10:29 AM EDT Legal Sex Female 10:29 AM EDT Gender Identity Female 02/23/2022 10:29 AM EDT Sexual Orientation Straight 02/23/2022 10 :29 AM EDT COVID-19 Exposure Response Date Recorded In the last 10 days, have yo u been in contact with someone who was confirmed or suspected to have Coronavirus/COVID-19? No / Unsure 08/27/2022 9:41 AM EDT documented as of this encounter Plan of Treatment Upcoming Encounters Date Type Department Care Team ([facility] Contact Info) Description 07/17/2024 1:00 PM EDT Clinical Support [facility] MEDICINE [address] [place] [address] Corrie Chen, SCOUT documented as of this encounter Visit Diagnoses Diagnosis Insomnia, unspecified type Pain Generalized pain documented in this encounter Care Teams Epic Professional Relationship Specialty Start Date End Date Name, MD Rock [address] [place] [address] PCP - General Family Medicine 07/04/15 documented as of this encounter
--- OUTSIDE RECORDS SUMMARY | 2024-05-22 17:33 | XMS_ITS | Encounter Summary ---
Author Organization [employer] Address [address] [facility] 7 [place] [address] Care Team Providers Care Skiver Blockers Name Role Phone Name, Rock DE PAZ Primary Care Provider [phone] Reason for Visit * Reason Onset Date Comments Nurse Triage 04/27/2023 Encounter Details Date Type Department Care Team (Late st Contact Info) Description 04/27/2023 Telephone [facility] MEDICINE [address] [place] [address] [phone] Name, MD Rock [address] [place], [place] [phone] Nurse Triage Social History Tobacco Use Types Packs/Day Years Used Date Smoking Tobacco: Former Cigarettes Smokeless Tobacco: Never Alcohol Use Standard Drinks/Week Comments Yes 0 (1 standard drink = 0.6 oz pur e alcohol) Ocassions (twice yearly) Depression Answer Date Recorded Patient Health Questionnaire-9 Score 17 05/17/2024 Patient Health Questionnaire-9 Score 17 05/17/2024 Last PHQ-9: Questionnaire Data Not on file 0 05/17/2024 Housing Stability Answer Date Recorded What is your housing situation today? I have sarah ruffin 05/17/[address] you li ve. Do you have problems with any of the following? Mold 05/17/2024 Food Insecurity Answer Date Recorded Within the past 12 months, y ou worried that your food would run out before you got money to buy more: Often true 05/17/2024 Within the past 12 months,th e food you bought just didn't last and you didn't have enough money to get more: Often true Transportation Answer Date Recorded In the past 12 months, has l ack of transportation kept you from medical appts, meetings, work or from getting things needed for daily living? No 05/17/2024 Utilities Answer Date Recorded In the past 12 months, has t he electric, gas, oil or water company threatened to shut off services in your home? No 05/17/2024 Depression Answer Date Recorded Patient Health Questionnaire-2 Score 4 05/17/2024 Internet Access Answer Date Recorded Internet Access Q1 Yes 05/17/2024 Internet Access Q2 Not on file 05/17/2024 Comments Unknown Sex and Gender Information Value Date Recorded Sex Assigned at Female 02/23/2022 10:29 AM EDT Legal Sex Female 10:29 AM EDT Gender Identity Female 02/23/2022 10:29 AM EDT Sexual Orientation Straight 02/23/2022 10 :29 AM EDT documented as of this encounter Miscellaneous Notes * Telephone Encounter - Luisana Brantley RN - 04/27/2023 1:45 PM EST Triage call Pt reports urinary symptoms of urgency and pain with urination. Pt has had right sided kidney stone and has been taking AZO and cranberry capsules for these symptoms as well as drinking adequate liquids. Pt is advised to come to [facility] today to be seen but, Pt reports a bad headache and doesn't want to drive. Pt is advised to come to [facility] in the morning and Pt agrees with this advice and disposition. Pt will come if symptoms don't subside. Protocol Used: Urinary Symptoms (Adult) Protocol-Based Disposition: See in Office or Video Visit within 2 Weeks Positive Triage Question: * All other urine symptoms * All higher-acuity triage questions were negative Care Advice Discussed: * Reasons To Call Back * Telephone Encounter - Chasity Cortez - 04/27/2023 1:16 PM EST Symptom: Urination Pain Outcome: Schedule an urgent appointment (within 1 hour) or talk to a nurse or provider soon Reason: Severe pain now The caller accepted this outcome Please contact at [phone] documented in this encounter Plan of Treatment Upcoming Encounters Date Type Department Care Team (Late st Contact Info) Description 07/17/2024 1:00 PM EDT Clinical Support [facility] MEDICINE [address] [place] [address] Corrie Chen RN documented as of this encounter Visit Diagnoses Not on filedocumented in this encounter Additional Health Concerns Assessment Noted Time PHQ-9 Depression Total Score: 21 023 10:14 AM EDT documented as of this encounter Care Teams Skiver Blockers Relationship Specialty Start Date End Date Name, MD Rock [address] [place] [address] PCP - General Family Medicine 07/04/15 documented as of this encounter
--- OUTSIDE RECORDS SUMMARY | 2024-05-22 17:33 | XMS_ITS | Encounter Summary ---
Author Organization [employer] Address [address] [facility] 7 [place] [address] Care Team Providers Care Line Service Person Name Role Phone Name, Rock DE PAZ Primary Care Provider [phone] Reason for Visit * Reason Onset Date Comments Prior Authorization 05/04/2024 carisoprodol (Soma) Encounter Details Date Type Department Care Team ([facility] st Contact Info) Description 05/04/2024 Telephone [facility] MEDICINE [address] [place], [place] [phone] Name, MD Rock [address] [place], [place] [phone] Prior Authorization (carisoprodol (Soma) ) Social History Tobacco Use Types Packs/Day Years Used Date Smoking Tobacco: Former Cigarettes Smokeless Tobacco: Never Alcohol Use Standard Drinks/Week Comments Yes 0 (1 standard drink = 0.6 oz pur e alcohol) Ocassions (twice yearly) Depression Answer Date Recorded Patient Health Questionnaire-9 Score 12 07/27/2023 Patient Health Questionnaire-9 Score 12 07/27/2023 Last PHQ-9: Questionnaire Data Not on file 0 07/27/2023 Housing Stability Answer Date Recorded What is [...] Date Recorded Patient Health Questionnaire-2 Score 4 07/27/2023 Comments Unknown Sex and Gender Information Value Date Recorded Sex Assigned at Female 02/23/2022 10:29 AM EDT Legal Sex Female 10:29 AM EDT Gender Identity Female 02/23/2022 10:29 AM EDT Sexual Orientation Straight 02/23/2022 10 :29 AM EDT documented as of this encounter Miscellaneous Notes * Telephone Encounter - Olinda Robins - 05/04/2024 2:01 PM EST PA req received for carisoprodol (Soma) 350 MG tablet. PA req form completed and sent to covering provider for review and signature via [employer]. documented in this encounter Plan of Treatment Upcoming Encounters Date Type Department Care Team (Late st Contact Info) Description 07/17/2024 1:00 PM EDT Clinical Support [facility] MEDICINE [address] [place] [address] Corrie Chen, SCOUT documented as of this encounter Visit Diagnoses Not on filedocumented in this encounter Additional Health Concerns Assessment Noted Time PHQ-9 Depression Total Score: 12 024 2:16 PM EDT documented as of this encounter Care Teams Line Service Person Relationship Specialty Start Date End Date Name, MD Rock [address] [place] [address] PCP - General Family Medicine 07/04/15 documented as of this encounter
--- OUTSIDE RECORDS SUMMARY | 2024-05-22 17:33 | XMS_ITS | Encounter Summary ---
Author Organization [employer] Address [address] [place] [address] 7 [place] [address] Care Team Providers Care Combatant Diver Officer Name Role Phone Name, Rock DE PAZ Primary Care Provider [phone] Reason for Visit * Reason Comments Med Refill Encounter Details Date Type Department Care Team (Late st Contact Info) Description 09/16/2022 Refill [facility] MEDICINE [address] [place] [address] [phone] Name, MD Rock [address] [place] [address] Chronic pain syndrome Social History Tobacco Use Types Packs/Day Years [...] Description 07/17/2024 1:00 PM EDT Clinical Support [facility] MEDICINE [address] [place] [address] Corrie Chen, SCOUT documented as of this encounter Visit Diagnoses Diagnosis Chronic pain syndrome documented in this encounter Care Teams Combatant Diver Officer Relationship Specialty Start Date End Date Name, MD Rock [address] [place] [address] PCP - General Family Medicine 07/04/15 documented as of this encounter
--- OUTSIDE RECORDS SUMMARY | 2024-05-22 17:33 | XMS_ITS | Encounter Summary ---
Author Organization [employer] Address [address] [facility] 7t [place] [address] Care Team Providers Care Cyber Policy And Strategy Planner Name Role Phone Name, Rock DE PAZ Primary Care Provider [phone] Reason for Visit * Reason Comments Med Refill Encounter Details Date Type Department Care Team (Late st Contact Info) Description 04/26/2023 Refill [facility] MEDICINE [address] [place], [place] [phone] Name, MD Rock [address] [place], [place] [phone] Insomnia, unspecified type Social History Tobacco Use Types Packs/Day Years [...] Description 07/17/2024 1:00 PM EDT Clinical Support [facility] MEDICINE [address] [place] [address] Corrie Chen RN documented as of this encounter Visit Diagnoses Diagnosis Insomnia, unspecified type documented in this encounter Additional Health Concerns Assessment Noted Time PHQ-9 Depression Total Score: 21 023 10:14 AM EDT documented as of this encounter Care Teams Cyber Policy And Strategy Planner Relationship Specialty Start Date End Date Name, MD Rock [address] [place] [address] PCP - General Family Medicine 07/04/15 documented as of this encounter
--- OUTSIDE RECORDS SUMMARY | 2024-05-22 17:33 | XMS_ITS | Encounter Summary ---
Author Organization [employer] Address [address] [place] [address] 7 [place] [address] Care Team Providers Care Financial Professional Name Role Phone Name, Rock DE PAZ Primary Care Provider [phone] Reason for Visit * Reason Comments Med Refill Encounter Details Date Type Department Care Team (Late st Contact Info) Description 04/08/2022 Refill [facility] CHC MED & PEDS [address] [place] [address] Yoni Mccormick MD [address] [place] [address] Social History Tobacco Use Types Packs/Day Years Used Date Smoking Tobacco: Never Assessed Comments Unknown Sex and Gender Information Value Date Recorded Sex Assigned at Female 02/23/2022 10:29 AM EDT Legal Sex Female 10:29 AM EDT Gender Identity Female 02/23/2022 10:29 AM EDT Sexual Orientation Straight 02/23/2022 10 :29 AM EDT documented as of this encounter Plan of Treatment Upcoming Encounters Date Type Department Care Team (Late Contact Info) Description 07/17/2024 1:00 PM EDT Clinical Support [facility] MEDICINE [address] [place] [phone] Corrie Chen, RN documented as of this encounter Visit Diagnoses Not on filedocumented in this encounter Care Teams Financial Professional Relationship Specialty Start Date End Date Name, MD Rock [address] [place] [phone] PCP - General Family Medicine 07/04/15 documented as of this encounter
--- OUTSIDE RECORDS SUMMARY | 2024-05-22 17:33 | XMS_ITS | Encounter Summary ---
Author Organization [employer] Address [address] [place] [address] 7 [place] [address] Care Team Providers Care Trestleman Name Role Phone Name, Rock DE PAZ Primary Care Provider [phone] Encounter Details Date Type Department Care Team (Late Contact Info) Description 04/30/2022 Orders Only [facility] CHC MED & PEDS [address] [place] [address] Cheyenne Sánchez LPN Social History Tobacco Use Types Packs/Day Years [...] Description 07/17/2024 1:00 PM EDT Clinical Support [facility] MEDICINE [address] [place], [place] [phone] Corrie Chen RN documented as of this encounter Procedures Procedure Name Priority Date/Time Associated Diagnosis Comments COLLAGEN CROSS-LINKED N-TELOPEPTIDE (NTX), U Routine 05/04/2022 3:06 PM EST THYROGLOBULIN, LC/MS/MS Routine 05/04/19 2:30 PM EST VITAMIN D,25-OH,TOTAL,IA Routine 05/04/2022 2:30 PM EST THYROID PEROXIDASE AND THYROGLOBULIN ANTIBODIES Routine 05/04/2022 2:30 PM EST PROTEIN ELECTROPHORESIS AND KAPPA/LAMBDA LIGHT CHAINS, SERUM Routine 05/04/2022 2:30 PM EST ALKALINE PHOSPHATASE, BONE SPECIFIC Routine 05/04/2022 2:30 PM EST TSH Routine 05/04/2022 2:30 PM EST T4, FREE Routine 05/04/2022 2:30 PM EST PHOSPHATE ( PHOSPHORUS) Routine 05/04/2022 2:30 PM EST PTH, INTACT WITHOUT CALCIUM Routine 05/04/2022 2:30 PM EST COMPREHENSIVE METABOLIC PANEL Routine 05/04/2022 2:30 PM EST documented in this encounter Results * Collagen Cross-Linked N-Telopeptide (NTx), U (05/04/2022 3:06 PM EST) N Telopetide (NTx) 50 see note [facility] Comment:Result Units: nM BCE /mM creatPremenopausal Females: 4 - 64 nM BCE/mM creatResults are primarily used for monitoring theresponse to therapy. A value within thepremenopausal range does not rule out osteoporosisnor the need for therapyUnits of Measure: nM BCE/mM creat CREATININE, RANDOM URINE 114 20 - 275 mg/dL [facility] Comment:THIS TEST WAS PERFOR MED AT:[facility] [place] [address]YVEQWHACARMELITA WRIGHT MD,PHD 05/04/2022 3:06 PM EST 05/04/2022 3:22 PM EST us [facility] External Provider LAB URI NE ORDERABLES Final Result Performing Organization Address City/[facility]/ZIP Co de Phone Number [facility] [address] [place] [phone] * Protein Electrophoresis and Soudan/Lambda Light Chains (05/04/2022 2:30 PM EST) Prot Elec - Total Protein 7.0 6.1 - 8.1 g/dL [facility] Prot Elec - Albumin 4.2 3.8 - 4.8 g/dL [facility] Prot Elec - Alpha1 0.3 0.2 - 0.3 g/dL [facility] Prot Elec - Alpha2 0.8 0.5 - 0.9 g/dL [facility] Prot Elec - Beta 1 0.6 0.4 - 0.6 g/dL [facility] Prot Elec - Beta 2 0.3 0.2 - 0.5 g/dL [facility] Prot Elec - Gamma 0.8 0.8 - 1.7 g/dL [facility] PES - Abn Protein Band 1 TNP [facility] PES-Abn Protein Band 2 [facility] PES-Abn Protein Band 3 [facility] Prot Elec - Interpretation SEE NOTE [facility] Comment:Normal Electrophoret ic PatternTHIS TEST WAS PERFORMED AT:[facility] [address] ([address] [address]CPEWRNANCY ADKINS MD 05/04/2022 2:30 PM EST 05/04/2022 2:33 PM EST [facility] External Provider LAB BLO OD ORDERABLES Final Result Performing Organization Address City/[facility]/ZIP Co de Phone Number [facility] [address] [place] [phone] * Alkaline Phosphatase, Bone Specific (05/04/2022 2:30 PM EST) Alkaline Phosphatase, Bone Specific 11.6 5.6 - 29.0 mcg/L [facility] Comment:Reference Range, Pre menopausal (mcg/L) 35-45 years 5.0-18.2THIS TEST WAS PERFORMED AT:[facility] [id number] [place] [address]VYWPZECCARMELITA WRIGHT MD,PHD 05/04/2022 2:30 PM EST 05/04/2022 2:33 PM EST [facility] External Provider LAB BLO OD ORDERABLES Final Result Performing Organization Address [facility] Co de Phone Number [facility] [address] [place] [phone] * Thyroid Peroxidase And Thyroglobulin Antibodies (05/04/2022 2:30 PM EST) Thyroglobulin Antibodies <1 < or = 1 IU/mL [facility] Comment:THIS TEST WAS PERFOR MED AT:[facility] [address] ([address] [address]LUXDVNANCY ADKINS MD 05/04/2022 2:30 PM EST 05/04/2022 2:33 PM EST [facility] External Provider LAB BLO OD ORDERABLES Final Result Performing Organization Address [facility] de Phone Number [facility] [address] [place] [phone] * (ABNORMAL) Thyroglobulin, LC/MS/MS (05/04/2022 2:30 PM EST) Thyroglobulin, LC/MS/MS <0.1(A) ng/mL [facility] Comment:Reference Range: Int act Thyroid 2.8-40.9 Athyrotic <0.1 Note: Abnormal flagging is based on the reference interval for patients with intact thyroid.This test was performed using the Krsiten Coulterchemiluminescent method. Values obtained fromdifferent assay methods cannot be usedinterchangeably. Thyroglobulin levels, regardlessof value, should not be interpreted as absoluteevidence of the presence or absence of disease. Thyroglobulin Comment See Below [facility] Comment:Thyroglobulin antibo dies (TGAB) interfere withthyroglobulin (TG) assays; therefore, TGAB assayshould always be performed in conjunction with aTG assay.For additional information, please refer tohttp://education.[employer]/faq/LFO346(This link is being provided for informational/educational purposes only.)THIS TEST WAS PERFORMED AT:[employer] [place] [address] (1)[place] [address]CDZSONANCY ADKINS MD 05/04/2022 2:30 PM EST 05/04/2022 2:33 PM EST [facility] External Provider LAB BLO OD ORDERABLES Final Result Performing Organization Address [facility] Co de Phone Number [facility] [address] [place] [phone] * PTH, Intact Without Calcium (05/04/2022 2:30 PM EST) PTHI 73 16 - 77 pg/mL [facility] Comment:Interpretive Guide I ntact PTH Calcium -------Normal Parathyroid Normal NormalHypoparathyroidism Low or Low Normal LowHyperparathyroidism Primary Normal or High High Secondary High Normal or Low Tertiary High HighNon-Parathyroid Hypercalcemia Low or Low Normal High Calcium (PTHI) 8.9 8.6 - 10.4 mg/dL [facility] Comment:THIS TEST WAS PERFOR MED AT:[facility] [place] [address] (1)[place] [address]GFHTLNANCY ADKINS MD 05/04/2022 2:30 PM EST 05/04/2022 2:33 PM EST [facility] External Provider LAB BLO OD ORDERABLES Final Result Performing Organization Address City/[facility]/ZIP Co de Phone Number [facility] [address] [place] [phone] * TSH (05/04/2022 2:30 PM EST) Thyroid Stimulating Hormone 3.46 0.32 - 4.0 uIU/mL [facility] Comment:Note: A sustained TS H level above 2.5 uIU/mL may warrant further investigation. TSH 3rd Generation ([facility]) 05/04/2022 2:30 PM EST 05/04/2022 2:33 PM EST [facility] External Provider LAB BLO OD ORDERABLES Final Result Performing Organization Address [facility] Co de Phone Number [facility] [address] [place] [phone] * T4, Free (05/04/2022 2:30 PM EST) Free T4 (Free Thyroxine) 1.14 0.71 - 1.85 ng/dL [facility] 05/04/2022 2:30 PM EST 05/04/2022 2:33 PM EST [facility] External Provider LAB BLO OD ORDERABLES Final Result Performing Organization Address [facility] Co de Phone Number [facility] [address] [place] [phone] * Vitamin D, 25-Hydroxy, Total, Immunoassay (05/04/2022 2:30 PM EST) Vitamin D 25-OH Total 25.8 >30 ng/mL [facility] Comment:Health Based Referen ce Values*< 20 ng/mL [id number] ng/mL Insufficient> 30 ng/mL Sufficient*Elver KRUSE. N Engl J Med. 2007;357:266-280Care must be taken in interpreting Vitamin D results fromdifferent laboratories and methodologies. Published datademonstrated that results from patients undergoinghemodialysis may show a negative bias when tested withvarious automated 25-OH vitamin D assays when compared toLC-MS/MS.When testing samples from patients whose predominant form ofVitamin D is Vitamin D2, such as patients receiving VitaminD2 supplementation, results that are subtherapeutic shouldbe confirmed with another method such as LC-MS/MS. 05/04/2022 2:30 PM EST 05/04/2022 2:33 PM EST [facility] External Provider LAB BLO OD ORDERABLES Final Result Performing Organization Address [facility]/ZIP Co de Phone Number [facility] [address] [place] [phone] * Phosphate (As Phosphorus) (05/04/2022 2:30 PM EST) Phosphorus 3.0 2.7 - 4.5 mg/dL [facility] 05/04/2022 2:30 PM EST 05/04/2022 2:33 PM EST [facility] External Provider LAB BLO OD ORDERABLES Final Result Performing Organization Address [facility] Co de Phone Number [facility] [address] [place] [phone] * Comprehensive Metabolic Panel (05/04/2022 2:30 PM EST) Sodium 138 135 - 145 mmol/L [facility] Potassium 4.8 3.3 - 5.1 mmol/L [facility] Chloride 106 96 - 108 mmol/L [facility] Carbon Dioxide 24 22 - 29 mmol/L [facility] Anion Gap 13 12 - 20 [facility] Urea Nitrogen (BUN) 15 9 - 16 mg/dL [facility] Creatinine, Serum 0.85 0.5 - 1.4 mg/dL [facility] Estimated Glomerular Filt Rate >60 [facility] Comment:NOTE: For -Am erican individuals, multiply the result by 1.210.Chronic Kidney Disease: Estimated GFR < 60 mL/min/1.50y3Lvphym Kidney Disease: Estimated GFR < 15 mL/min/1.73m2 Glucose 90 60 - 115 mg/dL [facility] Calcium 9.0 8.4 - 10.2 mg/dL [facility] Bilirubin, Total 0.3 0.0 - 1.0 mg/dL [facility] Aspartate Amino Transferase 26 5 - 31 U/L [facility] Alanine Aminotransferase 28 0 - 31 U/L [facility] Total Protein 6.8 6.5 - 8.0 g/dL [facility] Albumin Level 4.2 3.5 - 5.0 g/dL [facility] Alkaline Phosphatase 61 39 - 117 U/L [facility] 05/04/2022 2:30 PM EST 05/04/2022 2:33 PM EST [facility] External Provider LAB BLO OD ORDERABLES Final Result [facility] [address] [place] [phone] documented in this encounter Visit Diagnoses Not on filedocumented in this encounter Care Teams Trestleman Relationship Specialty Start Date End Date Name, MD Rcok [address] [place] [address] PCP - General Family Medicine 07/04/15 documented as of this encounter
--- OUTSIDE RECORDS SUMMARY | 2024-05-22 17:33 | XMS_ITS | Encounter Summary ---
Author Organization [employer] Address [address] [place] [address] 7 [place] [address] Care Team Providers Care Laser/Electro Optics Technician Name Role Phone Name, Rock DE PAZ Primary Care Provider [phone] Encounter Details Date Type Department Care Team ([facility] Contact Info) Description 09/14/2022 Abstract [facility] MEDICINE [address] [place] [phone] Name, MD Rock [address] [place] [address] Social History Tobacco Use Types Packs/Day Years [...] Upcoming Encounters Date Type Department Care Team ([facility] Contact Info) Description 07/17/2024 1:00 PM EDT Clinical Support [address] [address] Corrie Chen, RN documented as of this encounter Procedures Procedure Name Priority Date/Time Associated Diagnosis Comments COLONOSCOPY Routine 08/21/2014 9:35 AM EDT documented in this encounter Results * Colonoscopy (08/21/2014 9:35 AM EDT) Colonoscopy Normal Normal Narrative Ilda Rivera - 08/21/2014 9:35 AM EDT Recommended 10 year follow up Historical Provider HEALTH MAINTENANCE Final Result documented in this encounter Visit Diagnoses Not on filedocumented in this encounter Care Teams Laser/Electro Optics Technician Relationship Specialty Start Date End Date Name, MD Rock [address] [place] [address] PCP - General Family Medicine 07/04/15 documented as of this encounter
--- OUTSIDE RECORDS SUMMARY | 2024-05-22 17:33 | XMS_ITS | Encounter Summary ---
Author Organization [employer] Address [address] [facility] 7 [place] [address] Care Team Providers Care Director Of Safety And Security Name Role Phone Name, Rock DE PAZ Primary Care Provider [phone] Reason for Visit * Reason Onset Date Comments Med Refill 04/27/2024 Encounter Details Date Type Department Care Team (Late st Contact Info) Description 04/27/2024 Refill [facility] MEDICINE [address] [place], [place] [phone] Name, MD Rock [address] [place], [place] [phone] Chronic pain syndrome Social History Tobacco Use [...] Description 07/17/2024 1:00 PM EDT Clinical Support [facility] MEDICINE [address] [place] [address] Corrie Chen, SCOUT documented as of this encounter Visit Diagnoses Diagnosis Chronic pain syndrome documented in this encounter Additional Health Concerns Assessment Noted Time PHQ-9 Depression Total Score: 12 024 2:16 PM EDT documented as of this encounter Care Teams Director Of Safety And Security Relationship Specialty Start Date End Date Name, MD Rock [address] [place] [address] PCP - General Family Medicine 07/04/15 documented as of this encounter
--- OUTSIDE RECORDS SUMMARY | 2024-05-22 17:33 | XMS_ITS | Encounter Summary ---
Author Organization [employer] Address [address] [facility] 7t [place] [address] Care Team Providers Care Life Consultant Name Role Phone Name, Rock DE PAZ Primary Care Provider [phone] Encounter Details Date Type Department Care Team ([facility] st Contact Info) Description 05/20/2023 Telephone [facility] MEDICINE [address] [place], [place] [phone] Name, MD Rock [address] [place] [address] Social History Tobacco Use Types Packs/Day Years [...] encounter Miscellaneous Notes * Telephone Encounter - Magda Ruiz LPN - 05/20/2023 11:43 AM EST Critical Result line call received at this time from Francesca at office of Diabetes and Endocrinology. Patient Phosphorus 2.0 would like PCP to work patient up for hypophosphatemia. Patient seen in office on Wednesday05/18/23 documented in this encounter Plan of Treatment Upcoming Encounters Date Type Department Care Team (Late st Contact Info) Description 07/17/2024 1:00 PM EDT Clinical Support [facility] MEDICINE [address] [place] [address] Corrie Chen, RN documented as of this encounter Visit Diagnoses Not on filedocumented in this encounter Additional Health Concerns Assessment Noted Time PHQ-9 Depression Total Score: 21 023 10:14 AM EDT documented as of this encounter Care Teams Life Consultant Relationship Specialty Start Date End Date Name, MD Rock [address] [place] [address] PCP - General Family Medicine 07/04/15 documented as of this encounter
--- OUTSIDE RECORDS SUMMARY | 2024-05-22 17:33 | XMS_ITS | Encounter Summary ---
Author Organization [employer] Address [address] [place] [address] 7 [place] [address] Care Team Providers Care Internal Grinder Set Up Operator Name Role Phone Name, Rock DE PAZ Primary Care Provider [phone] Encounter Details Date Type Department Care Team ([facility] Contact Info) Description 05/06/2022 Orders Only [facility] MEDICINE [address] [place] [phone] Karen Falk LPN Social History Tobacco Use Types Packs/Day [...] suspected to have Coronavirus/COVID-19? No / Unsure 05/05/2022 10:44 AM EST documented as of this encounter Plan of Treatment Upcoming Encounters Date Type Department Care Team (Late Contact Info) Description 07/17/2024 1:00 PM EDT Clinical Support [address] [address] Corrie Chen RN documented as of this encounter Visit Diagnoses Not on filedocumented in this encounter Care Teams Internal Grinder Set Up Operator Relationship Specialty Start Date End Date Name, MD Rock [address] [place] [address] [place] [address] PCP - General Family Medicine 07/04/15 documented as of this encounter
--- OUTSIDE RECORDS SUMMARY | 2024-05-22 17:33 | XMS_ITS | Encounter Summary ---
Author Organization [employer] Address [address] [facility] 7 [place] [address] Care Team Providers Care Bench Patternmaker Metal Name Role Phone Name, Rock DE PAZ Primary Care Provider [phone] Reason for Visit * Reason Onset Date Comments Med Refill 04/22/2024 Encounter Details Date Type Department Care Team (Late st Contact Info) Description 04/22/2024 Refill [facility] MEDICINE [address] [place], [place] [phone] Name, MD Rock [address] [place] [address] Chronic pain syndrome Social History Tobacco Use [...] Description 07/17/2024 1:00 PM EDT Clinical Support [facility] MEDICINE [address] [place] [address] Corrie Chen, SCOUT documented as of this encounter Visit Diagnoses Diagnosis Chronic pain syndrome documented in this encounter Additional Health Concerns Assessment Noted Time PHQ-9 Depression Total Score: 12 024 2:16 PM EDT documented as of this encounter Care Teams Bench Patternmaker Metal Relationship Specialty Start Date End Date Name, MD Rock [address] [place] [address] PCP - General Family Medicine 07/04/15 documented as of this encounter
--- OUTSIDE RECORDS SUMMARY | 2024-05-22 17:33 | XMS_ITS | Encounter Summary ---
Author Organization [employer] Address [address] [facility] 7 [place] [address] Care Team Providers Care Test Rider Name Role Phone Name, Rock DE PAZ Primary Care Provider [phone] Reason for Visit * Reason Onset Date Comments Med Refill 05/20/2024 Encounter Details Date Type Department Care Team (Late st Contact Info) Description 05/20/2024 Refill [facility] MEDICINE [address] [place], [place] [phone] Name, MD Rock [address] [place], [place] [phone] Chronic pain syndrome Social History Tobacco Use [...] your housing situation today? I have sarah laly 05/17/[address] you li [...] Description 07/17/2024 1:00 PM EDT Clinical Support [facility] MEDICINE [address] [place] [address] Corrie Chen, SCOUT documented as of this encounter Visit Diagnoses Diagnosis Chronic pain syndrome documented in this encounter Additional Health Concerns Assessment Noted Time PHQ-9 Depression Total Score: 17 025 2:50 PM EST documented as of this encounter Care Teams Test Rider Relationship Specialty Start Date End Date Name, MD Rock [address] [place] [address] PCP - General Family Medicine 07/04/15 documented as of this encounter
--- OUTSIDE RECORDS SUMMARY | 2024-05-22 17:34 | XMS_ITS | Encounter Summary ---
Author Organization [employer] Address [address] [facility] 7 [place] [address] Care Team Providers Care Beauty School Instructor Name Role Phone Name, Rock DE PAZ Primary Care Provider Reason for Visit * Reason Onset Date Comments Med Refill 02/09/2024 Encounter Details Date Type Department Care Team (Late st Contact Info) Description 02/09/2024 Refill [facility] MEDICINE [address] [place], [place] [phone] Name, MD Rock [address] [place], [place] [phone] Chronic pain syndrome Social History Tobacco Use [...] 1:00 PM EDT Clinical Support [facility] MEDICINE [address] [place] [address] Corrie Chen, SCOUT documented as of this encounter Visit Diagnoses Diagnosis Chronic pain syndrome documented in this encounter Additional Health Concerns Assessment Noted Time PHQ-9 Depression Total Score: 12 024 2:16 PM EDT documented as of this encounter Care Teams Beauty School Instructor Relationship Specialty Start Date End Date Name, MD Rock [address] [place] [address] PCP - General Family Medicine 07/04/15 documented as of this encounter
--- OUTSIDE RECORDS SUMMARY | 2024-05-22 17:34 | XMS_ITS | Encounter Summary ---
Author Organization [employer] Address [address] [facility] 7 [place] [address] Care Team Providers Care Database Management System Specialist Name Role Phone Name, Rock DE PAZ Primary Care Provider [phone] Reason for Visit * Reason Onset Date Comments Med Refill 05/09/2024 Encounter Details Date Type Department Care Team (Late st Contact Info) Description 05/09/2024 Refill [facility] MEDICINE [address] [place], [place] [phone] Name, MD Rock [address] [place], [place] [phone] Rhinorrhea Social History Tobacco Use Types Packs/Day Years [...] Description 07/17/2024 1:00 PM EDT Clinical Support [facility] MEDICINE [address] [place] [address] Corrie Chen, SCOUT documented as of this encounter Visit Diagnoses Diagnosis Rhinorrhea Other diseases of nasal cavity and sinuses documented in this encounter Additional Health Concerns Assessment Noted Time PHQ-9 Depression Total Score: 12 024 2:16 PM EDT documented as of this encounter Care Teams Database Management System Specialist Relationship Specialty Start Date End Date Name, MD Rock [address] [place] [address] PCP - General Family Medicine 07/04/15 documented as of this encounter
--- OUTSIDE RECORDS SUMMARY | 2024-05-22 17:34 | XMS_ITS | Clinical Summary ---
Author Organization [employer] Address [address] [facility] [address] [place] [address] Care Team Providers Care Electronic Health Records Specialist Name Role Phone Name, Rock DE PAZ Primary Care Provider [phone] Allergies Active Allergy Reactions Criticality Noted Date Comments Atorvastatin 07/04/2015 Alendronate 11/16/2023 Heartburn Pravastatin 09/16/2012 Other reaction(s): blisters on face Swelling and blisters of the hands, feet and face Statins Anaphylaxis,Itching, Willie h High 07/27/2023 Sulfa Antibiotics Itching,Rash Low 05/13/2005 Other reaction(s): Rash,Hives, Itch Medications Blood Pressure kit Use once a day 1 kit 023 Active Evenity 105 MG/1.17ML prefilled syringe 024 Active LORazepam (Ativan) 1 MG tablet Take 1 tablet (1 mg) by mouth See administration instructions. 1 hour prior to upcoming colonoscopy 1 tablet 024 Active naloxone (Narcan) 4 mg/0.1 mL nasal sprayIndicatio ns:Chronic pain syndrome Administer 1 spray (4 mg) into affected nostril(s) if needed for opioid reversal. May repeat every 2-3 minutes if needed, alternating nostrils, until medical assistance becomes available. 2 each 3 024 2024 Active Diclofenac Sodium 1 % gel APPLY 2 GRAMS OF GEL TOPICALLY TO AFFECTED AREA TWICE DAILY 100 g Active fluticasone (Flonase) 50 MCG/ACT nasal sprayIndicatio ns:Rhinorrhea Administer 2 sprays into each nostril Once per day. Shake gently. Before first use, prime pump. After use, clean tip and replace cap. 16 g 2 024 2024 Active omeprazole (PriLOSEC) [address] capsuleIndicat ions:Chronic pain syndrome,Insom shital, unspecified type TAKE 1 CAPSULE BY MOUTH TWICE DAILY BEFORE MEAL(S) 180 capsule 1 Active ezetimibe (Zetia) 10 MG tabletIndicati ons:High cholesterol,St atin intolerance TAKE 1 TABLET BY MOUTH EVERY DAY 90 tablet 1 Active venlafaxine XR (Effexor XR) 75 MG 24 hr capsuleIndicat ions:Chronic pain syndrome,Insom shital, unspecified type TAKE 1 CAPSULE BY MOUTH ONCE DAILY WITH FOOD. TAKE WITH 150MG DOSE FOR A TOTAL OF 225MG. 90 capsule 1 Active venlafaxine XR (Effexor XR) 150 MG 24 hr capsuleIndicat ions:Hypophosp hatemia TAKE 1 CAPSULE BY MOUTH ONCE DAILY. TAKE WITH 75MG DOSE FOR A TOTAL DOSE OF 225MG DAILY. 90 capsule Active OXcarbazepine (Trileptal) 150 MG tabletIndicati ons:Hypophosph atemia Take 1 tablet by mouth twice daily 60 tablet 025 Active busPIRone (Buspar) 30 MG tabletIndicati ons:Insomnia, unspecified type Take 1 tablet by mouth twice daily 60 tablet 025 Active zolpidem (Ambien) 10 MG tabletIndicati ons:Insomnia, unspecified type TAKE 1 TABLET BY MOUTH ONCE DAILY AT BEDTIME NEEDED FOR SLEEP 28 tablet 025 Active loratadine (Claritin) 10 MG tabletIndicati ons:Rhinorrhea TAKE 1 TABLET BY MOUTH EVERY MORNING 90 tablet 025 Active hydroCHLOROthi azide (HYDRODiuril) 25 MG tablet Take 1 tablet (25 mg) by mouth Once per day. 30 tablet 025 2025 Active albuterol 108 (90 Base) MCG/ACT inhaler Inhale 2 puffs every 6 (six) hours if needed for wheezing. 18 g 2 025 2025 Active fluticasone furoate (Arnuity Ellipta) 200 MCG/ACT inhaler Inhale 1 puff Once per day. Rinse mouth with water after use to reduce aftertaste and incidence of candidiasis. Do not swallow. 1 each 025 2025 Active carisoprodol (Soma) 350 MG tabletIndicati ons:Chronic pain syndrome TAKE 1 TABLET BY MOUTH IN THE MORNING, AT NOON, IN THE EVENING AND AT BEDTIME FOR MUSCLE SPASM FOR UP TO 23 DAYS 90 tablet 025 Active albuterol 108 (90 Base) MCG/ACT inhalerIndicat ions:Moderate asthma, unspecified whether complicated, unspecified whether persistent Inhale 2 puffs every 6 (six) hours if needed for wheezing. 18 g 024 2024 Discontinued(D ose adjustment) loratadine (Claritin) 10 MG tabletIndicati ons:Rhinorrhea Take 1 tablet (10 mg) by mouth in the morning. 90 tablet 024 2024 Discontinued(R eorder (will not trigger notification to Pharmacy)) hydroCHLOROthi azide 12.5 MG tablet Take 1 tablet (12.5 mg) by mouth Once per day. 30 tablet 11 024 2024 Discontinued(D ose adjustment) busPIRone (Buspar) 30 MG tabletIndicati ons:Insomnia, unspecified type Take 1 tablet by mouth twice daily 60 tablet 2 024 2024 Discontinued OXcarbazepine (Trileptal) 150 MG tabletIndicati ons:Hypophosph atemia TAKE 1 TABLET BY MOUTH TWICE DAILY 60 tablet 2 024 2024 Discontinued zolpidem (Ambien) 10 MG tabletIndicati ons:Insomnia, unspecified type TAKE 1 TABLET BY MOUTH ONCE DAILY AT BEDTIME NEEDED FOR SLEEP 28 tablet 024 2024 Discontinued(R eorder (will not trigger notification to Pharmacy)) traMADol (Ultram) 50 MG tabletIndicati ons:Chronic pain syndrome Take 1 tablet (50 mg) by mouth every 8 (eight) hours if needed for severe pain for up to 28 days. 84 tablet 024 2024 carisoprodol (Soma) 350 MG tabletIndicati ons:Chronic pain syndrome TAKE 1 TABLET BY MOUTH IN THE MORNING, AT NOON, IN THE EVENING AND AT BEDTIME FOR MUSCLE SPASM FOR UP TO 23 DAYS 90 tablet 024 2024 Discontinued(R eorder (will not trigger notification to Pharmacy)) Active Problems Problem Noted Date Diagnosed Date Hypertension 05/17/2024 Hx of papillary thyroid carcinoma 02/11/2023 02/11/2023 Fear of flying 06/08/2022 Ventral hernia 06/08/2022 Occult blood in stools 06/08/2022 Mild intermittent asthma without complication Complex partial seizure with impairment of consc iousness 06/12/2021 Carcinoma of thyroid 09/11/2020 Gastroesophageal reflux disease 09/11/2020 Anxiety 09/11/2020 Depressive disorder 09/11/2020 Hypercholesterolemia 09/11/2020 Primary osteoarthritis of both knees 11/23/2016 Osteoporosis 06/16/2016 Osteoarthritis 12/05/2015 Rheumatoid factor positive 12/05/2015 Degeneration of lumbosacral intervertebral disc 07/04/2015 Hyperlipidemia 09/05/2014 Overview (02/11/2023): IMO update Diverticulitis of colon without hemorrhage 08/21 Overview (06/08/2022): Incidental finding at colonoscopy 08/21/2014. Hypothyroidism (acquired) 09/04/2013 Fatty liver 09/27/2012 Depression 01/11/2012 History of thyroidectomy, total 10/01/2011 Intramural leiomyoma of uterus 12/11/2008 Chronic low back pain 09/27/2007 Overview (02/11/2023): Chronic - fractured coccyx at 9 years old Insomnia 09/27/2007 Resolved Problems Problem Noted Date Diagnosed Date Resolved Date Morbid obesity 06/08/2022 07/27/2023 Acute cough 04/03/2022 07/27/2023 Assessment & Plan (04/03/2022 11:11 AM EST): Symptoms started 2 days ago, tested positive yesterday, will start on paxlovid risk vs benefit were discussed, reviewed recent labs and medications, told to hold zetia, in case of worsening symtoms visit er Congestion of nasal sinus 04/03/2022 COVID 04/03/2022 07/27/2023 Acid reflux 09/11/2020 07/27/2023 History of back pain 09/11/2020 024 Hyperthyroidism 09/11/2020 07/27/2023 Neck pain 11/30/2017 07/27/2023 Drug therapy 09/06/2015 02/11/2023 07/27/2023 Hernia 02/16/2013 07/27/2023 Overview (06/08/2022): REPAIRED AFTER BARIATRIC SURGERY Anxiety state 11/12/2006 07/27/2023 Assessment & Plan (10/30/2022 5:11 PM EDT): Patient stated she was prescribed hydroxyzine 10 mg but it didn't do anything, so she started taking 20 mg which is also not helping much. I will prescribe her 50 mg hydroxyzine PO Q6H PRN. Encounters Date Type Department Care Team Description 05/22/2024 Orders Only GENERIC EXTERNAL DATA DEPARTMENT Provider, Generic External Data 05/20/2024 Refill [facility] [address] [place] [address] NameRock MD Chronic pain syndrome 05/17/2024 2:00 PM EST Office Visit [facility] [address] [place] [address] Rock Rodrigues MD Cough, unspecified type (Primary Dx); Wheezing; History of asthma; Hypertension, unspecified type 05/17/2024 Travel 05/09/2024 Refill [facility] [address] [place] [address] Rock Rodrigues MD Rhinorrhea 05/08/2024 Refill [facility] [address] [place] [address] Rock Rodrigues MD Rhinorrhea 05/08/2024 Refill [facility] [address] [facility] [place] [address] Rock Rodrigues MD Chronic pain syndrome; Insomnia, unspecified type 05/08/2024 Refill [facility] [address] [place] [address] Rock Rodrigues MD Insomnia, unspecified type; Rhinorrhea 05/08/2024 Refill [facility] [address] [facility] [place] [address] Rock Rodrigues MD Hypophosphatemia; Insomnia, unspecified type 05/04/2024 Telephone [facility] [address] [place] [address] [place] [address] Rock Rodrigues MD Prior Authorization (carisoprodol (Soma) ) 04/27/2024 Refill [facility] [address] [place] [address] Rock Rodrigues MD Chronic pain syndrome 04/22/2024 Refill [facility] [address] [place] [address] Rock Rodrigues MD Chronic pain syndrome 04/21/2024 Telephone [facility] [address] [place] [address] Dorota Henry MA PCP OUT 04/18/2024 11:30 AM EST Clinical Support [facility] [address] [place] [phone] Corrie Chen RN Chronic pain syndrome (Primary Dx) 04/18/2024 Telephone [facility] [address] [place] [address] Corrie Chen RN Abnormal UTOX 04/18/2024 Travel 04/18/2024 Telephone [facility] [address] [place] [address] Corrie Chen RN Recommend VECTOR CONTROL ASSISTANT Tier 2 04/16/2024 Refill [facility] [address] [place] [address] Rock Rodrigues MD Chronic pain syndrome (Primary Dx) 04/10/2024 Telephone [facility] [address] [place] [address] [place] [address] NameRock MD Appointment Request 04/07/2024 Refill [facility] [address] [place] [address] Name, MD Rock Insomnia, unspecified type 03/27/2024 Refill [facility] [address] [place] [address] Name, MD Rock Chronic pain syndrome 03/10/2024 Refill [facility] [address] [place] [address] NameRock MD Hypophosphatemia 03/10/2024 Refill [facility] [address] [place] [address] Name, MD Rock Insomnia, unspecified type 03/08/2024 Refill [facility] [address] [place] [address] Name, MD Rock Chronic pain syndrome (Primary Dx) 03/03/2024 Refill [facility] [address] [place] [address] Name, MD Rock Chronic pain syndrome 03/02/2024 Refill [facility] [address] [place] [address] Name, MD Rock Insomnia, unspecified type; Chronic pain syndrome 03/02/2024 Refill [facility] [address] [place] [address] Name, MD Rock 03/02/2024 Refill [facility] [address] [place] [address] Name, MD Rock Chronic pain syndrome 02/29/2024 Refill [facility] [address] [place] [address] Name, MD Rock Hypophosphatemia from Last 3 Months Immunizations Name Administration Dates Next Due INFLUENZA VACCINE QUADRIVALE NT RECOMBINANT PRESERVATIVE FREE RIV4 01/20/2020,02/09/2019 Influenza injectable quadriv alent preservative free 02/15/2023,01/07/2022,02/17/2021,01/15,01/28/2017,01/22/2016 Influenza, IIV3, injectable 01/07/2015,1 ,02/16/2013,01/10,01/24/2009 Novel [id number], preservative-free 04/03/2009 Pfizer Covid-19 Vaccine 12+ 03/29/2023 Pneumococcal Conjugate PCV 20 02/15/2023 Pneumococcal Polysaccharide PPSV23 08/15/2013 RSV Adjuvant 03/30/2023 RSV Bivalent 03/30/2023 Tdap 09/25/2015,10/02/2008 Zoster, Recombinant 05/23/2019,02/09/2019 Social History Tobacco Use Types Packs/Day Years Used Date Smoking Tobacco: Former Cigarettes Smokeless Tobacco: Never Tobacco Cessation:Counseling Given: Not Answered Alcohol Use Standard Drinks/Week Comments Yes 0 [...] Orientation Straight 02/23/2022 10 :29 AM EDT Last Filed Vital Signs Vital Sign Reading Time Taken Comments Blood Pressure 147/90 05/17/2024 2:09 PM EST Pulse 58 05/17/2024 2:09 PM EST Temperature 35.6 ??C (96 ??F) 05/17/2024 2:09 PM EST Respiratory Rate 16 05/17/2024 2:09 PM EST Oxygen Saturation 100% 05/17/2024 2:09 PM EST Inhaled Oxygen Concentration - - Weight 86.7 kg (191 lb 3.2 oz) 05/17/2024 2:09 P M EST Height 170.2 cm (5' 7 ) 05/17/2024 2:09 PM EST Body Mass Index 29.95 05/17/2024 2:09 PM EST Plan of Treatment Upcoming Encounters Date Type Department Care Team (Late st Contact Info) Description 07/17/2024 1:00 PM EDT Clinical Support [facility] [address] [place] [phone] Corrie Chen, RN Health Maintenance Due Date Last Done Comments CT Colonography 1960 FIT DNA/Cologuard 1960 FIT 1960 FOBT 1960 Sigmoidoscopy 1960 Hepatitis A Vaccines (1 of 2 - Risk 2-dose series) 01/02/1980 Hepatitis B Vaccines (1 of 3 - Risk 3-dose series) 2021 Depression Monitoring (PHQ-9) 11/14/2024 05/17/2024, 05/17/2024 Alcohol/Substance Use Screening 11/15/2024 11/16/2023 Depression Screening 05/17/2025 05/17/2024, 05/17/19 25 SDOH Screening 05/17/2025 05/17/2024 Tobacco Screening 05/17/2025 05/17/2024 DTaP/Tdap/Td Vaccines (3 - Td or Tdap) 09/24/2025 09/25/2015, 10/02/2008 Mammogram 02/03/2026 02/04/2024, 12/26, 01/20/2022, Additional history exists Cervical Cancer Screening 01/07/2027 HPV/Cotest 01/07/2027 01/07/2022 Pap Smear 01/07/2027 01/07/2022 Lipid Panel 12/06/2028 12/07/2023, 06/0 08/2023, 06/29/2022, Additional history exists Colonoscopy 11/21/2033 11/22/2023, 08/21/2014 Colorectal Cancer Screening 11/21/2033 Zoster Vaccines Completed 05/23/2019, 02/09/2019 HIV Screening Completed 02/17/2021 Hepatitis C Screening Completed 12/23/2021, 021 Pneumococcal Vaccine: Pediatrics (0 to 5 Years) and At-Risk Patients (6 to 64 Years) Completed 02/15/2023, 08/15/2013 RSV Patients and Patients Aged 60 years or older Completed 03/30/2023, 03/30/2023 COVID-19 Vaccine Completed 02/01/2024, 07/2022, 01/19/2022, Additional history exists Influenza Vaccine Completed 02/01/2024, , 01/07/2022, Additional history exists HIB Vaccines Aged Out No longer eligi ble based on patient's age to complete this topic HPV Vaccines Aged Out No longer eligi ble based on patient's age to complete this topic IPV Vaccines Aged Out No longer eligi ble based on patient's age to complete this topic Meningococcal Vaccine Aged Out No shayna toi eligible based on patient's age to complete this topic RSV under 20 months Aged Out No longe r eligible based on patient's age to complete this topic Rotavirus Vaccines Aged Out No longer eligible based on patient's age to complete this topic Procedures Procedure Name Priority Date/Time Associated Diagnosis Comments T4, FREE Routine 05/22/2024 2:49 PM EST POCT RAPID COVID ANTIGEN Routine 05/17/2024 3:33 PM EST Cough, unspecified type POCT INFLUENZA B Routine 05/17/2024 3:32 PM EST Cough, unspecified type POCT INFLUENZA A Routine 05/17/2024 3:32 PM EST Cough, unspecified type POCT PAULETTE-14 URINE DRUG SCREEN Routine 04/18/2024 11:51 AM EST Chronic pain syndrome DRUG MONITORING, PHENCYCLIDINE, QUANTITATIVE, URINE Routine 04/18/2024 11:30 AM EST Chronic pain syndrome METHADONE SCREEN, URINE Routine 04/18/2024 11:30 AM EST Chronic pain syndrome BI MAMMOGRAM SCREENING TOMOSYNTHESIS BILATERAL Routine 02/04/2024 1:40 PM EDT LIPID PANEL, STANDARD Routine 12/07/2023 11:55 AM EDT HM COLONOSCOPY Routine 11/22/2023 THINPREP IMAGING PAP AND HPV MRNA E6/E7 WITH REFLEX TO HPV 16,18/45 Routine 01/07/2022 3:18 PM EDT ZZZ HISTORICAL HEPATITIS C AB W/REFL TO HCV RNA, QN, PCR Routine 12/23/2021 2:35 PM EDT HIV 1/2 ANTIGEN/ANTIBODY, FOURTH GENERATION W/RFL Routine 02/17/2021 3:50 PM EDT from Last 3 Months or Most Recently Relevant to Health Maintenance Results * T4, Free (05/22/2024 2:49 PM EST) Free T4 (Free Thyroxine) 1.39 0.71 - 1.85 ng/dL [facility] 05/22/2024 2:49 PM EST 05/22/2024 2:49 PM EST us Generic External Data Provider LAB BLOOD ORDERAB LES Final Result [facility] [address] [place] [address] [phone] * POCT Rapid Covid-19 BinaxNOW (05/17/2024 3:33 PM EST) [facility] Rapid COVID Ag Negative QC Media Lot # [id number] Lot# Expiration Date Swab 05/17/2024 3:33 PM EST Result [facility] POINT OF CARE TEST ENTER/EDIT OR DERABLES Final Result * POCT Rapid Influenza B OSOM (05/17/2024 3:32 PM EST) [facility] Rapid Influenza B Ag Negative Negative, Indeterminate QC Media Lot # [id number] Lot# Expiration Date Swab 05/17/2024 3:32 PM EST Result [facility] POINT OF CARE TEST ENTER/EDIT OR DERABLES Final Result * POCT Rapid Influenza A OSOM (05/17/2024 3:32 PM EST) [facility] Rapid Influenza A Ag Negative Negative, Indeterminate QC Media Lot # [id number] Lot# Expiration Date Swab Nasopharyngeal structure / Unknown 05/17/2024 3:32 PM EST Result [facility] POINT OF CARE TEST ENTER/EDIT OR DERABLES Final Result * (ABNORMAL) POCT PAULETTE-14 Urine Drug Screen (04/18/2024 11:51 AM EST) [facility] THC Positive Methadone Screen, Urine Positive TCA, Urine Positive Phencyclidine (PCP), Urine Positive Urine Urine specimen obtained by clean catch procedure / Unknown 04/18/2024 11:51 AM EST Corrie Gomez RN - 04/18/2024 11:51 AM EST UTOX cup Lot#[id number] Exp. 01/18/26 Internal Pass Control Result [facility] POINT OF CARE TEST ENTER/EDIT OR DERABLES Final Result * Drug Monitoring, Phencyclidine, Quantitative, Urine (04/18/2024 11:30 AM EST) Phencyclidine NEGATIVE [facility] Comment:REFERENCE RANGE: <25 ng/mLThis drug testing is for medical treatment only.Analysis was performed as non-forensic testing andthese results should be used only by healthcareproviders to render diagnosis or treatment, or tomonitor progress of medical conditions.LDT Notes:Confirmation tests were developed and their analyticalperformance characteristics have been determined by[employer]. It has not been cleared or approvedby the FDA. This assay has been validated pursuant tothe CLIA regulations and is used for clinical purposes.Healthcare Providers needing Interpretation assistance,please contact us at [phone] ( )M- F, 8am to 10pm ESTTHIS TEST PERFORMED AT:[facility] [address] [phone] DIRECTOR: NANCY ADKINS MD Urine (Urine, Random) 04/18/2024 11:30 AM EST 04/18/2024 1:23 PM EST us Rock Rodrigues MD LAB URINE ORDERABLES Final Resul t Performing Organization Address [facility] Co de Phone Number [facility] [address] [place] [address] [phone] * Drug Monitoring, Methadone Metabolite, Screen, Urine (04/18/2024 11:30 AM EST) Methadone Screen, Urine Not Detected Not Detect ng/mL [facility] Comment:Methadone cut-off is 300 ng/mL.Positive results are unconfirmed and should not be used fornon-medical purposes. Urine (Urine, Random) 04/18/2024 11:30 AM EST 04/18/2024 1:23 PM EST us Rock Rodrigues MD LAB URINE ORDERABLES Final Resul t Performing Organization Address City/[facility]/ZIP Co de Phone Number [facility] [address] [place] [address] [phone] * BI Mammogram Screening Tomosynthesis Bilateral (02/04/2024 1:40 PM EDT) Anatomical Region Laterality Modality Breast Bilateral Mammography 02/04/2024 1:40 PM EDT Narrative 02/17/2024 9:45 PM EDT ? [facility] ? [address] ?[place] [address] ? Mammography Report ? Signed ? Patient: Jayson,Coleen ?MR#: [id number] ? : 1960 ?Acct:[id number] ? Age/Sex: 64 / F ?ADM Date: 02/04/24 ? Loc: HO.MAMMO ? Attending Dr: Rock Name MD ? Ordering Physician: Name,Rock MD ?Results: 1Negative ? Date of Service: 02/04/24 ?Follow Up: 1 Year From Orig ?? inal Mammogram ? Procedure(s): MM tomosynthesis screening BI ?? Accession Number(s): [id number] ? cc: Name,Rock DE PAZ ? EXAMINATION: ?? MM SCREENING DIGITAL BREAST TOMOSYNTHESIS, BILATERAL ? CLINICAL INFORMATION: ? Screening. Asymptomatic. ? COMPARISON: ?? Mammography: Comparison is made with available priors ? TECHNIQUE: ?? Digital breast mammography with tomosynthesis is performed in both the ?? craniocaudal and mediolateral oblique views along with computer-aided ?? detection (CAD). ? FINDINGS: ?? There are scattered areas of fibroglandular density (ACR BI-RADS breast ?? composition Category b). ? There are no significant masses, abnormal calcifications, or other ?? abnormalities. ? MM/MM tomosynthesis screening BI ?? IMPRESSION: ?? No mammographic evidence of malignancy. ? ASSESSMENT: ? BI-RADS BI-RADS 1 - Negative ? RECOMMENDATION: ?? Routine annual mammography screening. ? 1 year F/U ? This examination should not preclude the clinical evaluation of a ?? suspicious palpable abnormality. ? This patient's information was entered into a reminder system with a ?? target due date for their next mammogram. ? Electronically signed by: ??Kristal Santos DO ??02/17/2024 09:42 PM EDT ? Dictated By: ?Kristal Santos DO ? Signed By: ?<Electronically signed by Kristal Santos, DO in OV> ? 10/24/24 2142 ? DD/ 1340 ? TD/TT: 02/04/24 1358 ? [address]: ? Procedure Note [place], [place] - 02/17/2024 Derek [facility] [address] [place] [address] Mammography Report Signed Patient: John Tyler#: [id number] : 1Acct:[id number] Age/Sex: 64 / FADM Date: 02/04/24 Loc: HO.MAMMO Attending Dr: Rock Rodrigues MD Ordering Physician: Rock Rodriguesesults: 1Negative Date of Service: 02/04/24Follow Up: 1 Year From Orig inal Mammogram Procedure(s): MM tomosynthesis screening BI Accession Number(s): [id number] cc: Rock Rodrigues MD EXAMINATION: MM SCREENING DIGITAL BREAST TOMOSYNTHESIS, BILATERAL CLINICAL INFORMATION: Screening. Asymptomatic. COMPARISON: Mammography: Comparison is made with available priors TECHNIQUE: Digital breast mammography with tomosynthesis is performed in both the craniocaudal and mediolateral oblique views along with computer-aided detection (CAD). FINDINGS: There are scattered areas of fibroglandular density (ACR BI-RADS breast composition Category b). There are no significant masses, abnormal calcifications, or other abnormalities. MM/MM tomosynthesis screening BI IMPRESSION: No mammographic evidence of malignancy. ASSESSMENT: BI-RADS BI-RADS 1 - Negative RECOMMENDATION: Routine annual mammography screening. 1 year F/U This examination should not preclude the clinical evaluation of a suspicious palpable abnormality. This patient's information was entered into a reminder system with a target due date for their next mammogram. Electronically signed by: Kristal Santos DO 02/17/2024 09:42 PM EDT RP Dictated By: Kristal Santos DO Signed By: <Electronically signed by Kristal Santos DO in OV> 02/17/24 2142 DD/ 1340 TD/TT: 02/04/24 [address]: us Rock Name IMYareli BI PROCEDURES Edited Result - Final * (ABNORMAL) Lipid Panel, Standard (12/07/2023 11:55 AM EDT) Triglycerides 236(H) <150 mg/dL [facility] Comment:Desirable Triglyceri de: less than 150 mg/dLBorderline High Triglyceride 150-199 mg/dLHigh Triglyceride: 200-499 mg/dLVery High Triglyceride: greater than or equal to 5OO mg/dL Cholesterol 300(H) <200 mg/dL [facility] Comment:Desirable Cholestero l: less than 200 mg/dLBorderline High Cholesterol: 200-239 mg/dLHigh Cholesterol: greater than 239 mg/dL LDL Cholesterol Calculated 214(H) <100 mg/dL [facility] Comment:Desirable LDL: less than 100 mg/dLNear Optimal/Above Optimal LDL: 110- 129 mg/dLBorderline High LDL: 130-159 mg/dLHigh LDL: 160-189 mg/dLVery High LDL: greater than or equal to 190 mg/dL HDL Cholesterol 39(L) >40 mg/dL [facility] Comment:Desirable HDL: great er than 40 mg/dL Note: This HDL assay may give artificially low results in patients with liver disease. 12/07/2023 11:5 5 AM EDT 12/07/2023 11:55 AM EDT us Generic External Data Provider LAB BLOOD ORDERAB LES Final Result [facility] [address] [place] [phone] * Hm Colonoscopy (11/22/2023) Colonoscopy Normal Normal Rock Rodrigues MD HEALTH MAINTENANCE Final Result * THINPREP TIS PAP AND HPV mRNA E6/E7 WITH REFLEX TO HPV 16,18/45 (01/07/2022 3:18 PM EDT) Clinical Information: None given [facility] COMMENT SEE COMMENT [facility] Comment: EXPLANATORY NOTE: ? The Pap is a screening test for cervical cancer. It is ?? not a diagnostic test and is subject to false negative ?? and false positive results. It is most reliable when a ?? satisfactory sample, regularly obtained, is submitted ?? with relevant clinical findings and history, and when ?? the Pap result is evaluated along with historic and ?? current clinical information. ?? COMMENT: This Pap test has been evaluated with computer assisted technology. [facility] Correctional Casework Specialist: SEE COMMENT [facility] Comment: VICTOR MANUEL SPAULDING(ASCP) CT screening location: [address] ??[address] HPV nRNA E6/E7 Not Detected Not Detected [employer] [facility] Comment: Methodology: Ships Equipment Engineer-Mediated Amplification This assay detects E6/E7 viral messenger RNA (mRNA) from 14 high-risk HPV types (16,18,31,33,35,39,45,51,52,56,58,59,66,68). ? Cervical sources are required for HPV testing. If a vaginal source from a patient who has had a total hysterectomy with removal of cervix was ?? submitted, please contact the testing laboratory for alternative testing options. ?? For additional information, please refer to http://[employer]/faq/YFD309l9 (This link if provided for information/ educational purposes only.) Interpretation/Res ult: SEE COMMENT [facility] Comment: Negative for intraepithelial lesion or malignancy. Atrophic pattern; predominantly parabasal cells LMP: MENOPAUSE X 48 [facility] Prev. BX: NONE GIVEN [facility] Prev. PAP: YES [facility] SOURCE: None given [facility] Statement Of Adequacy: SATISFACTORY FOR EVALUATION [facility] 01/07/2022 3:18 PM EDT Tisha CHAMBERS LAB PATHOLOGY ORDERABLES Final Result Performing Organization Address [facility] Phone Number [facility] [address] * HEPATITIS C AB W/REFL TO HCV RNA, QN, PCR (12/23/2021 2:35 PM EDT) Pathologist [facility] HEPATITIS C ANTIBODY NON-REACT MARK NON-REACT MARK [facility] INDEX 0.12 <1.00 [facility] Comment: ?? HCV antibody was non-reactive. There is no laboratory ?? evidence of HCV infection. ?? In most cases, no further action is required. However, if recent HCV exposure is suspected, a test for HCV RNA (test code 87397) is suggested. ?? For additional information please refer to http://[employer]/faq/DAP26r3 (This link is being provided for informational/ educational purposes only.) ?? 12/23/2021 2:35 PM EDT Rock Rodrigues MD HISTORICAL/NON ORDERABLE LABS Fi nal Result Performing Organization Address [facility] Co de Phone Number [facility] [address] * HIV 1/2 ANTIGEN/ANTIBODY,FOURTH GENERATION W/RFL (02/17/2021 3:50 PM EDT) HIV-1/2 ANTIGEN AND ANTIBODIES, 4TH GENERATION W/ REFLEX NON-REACT MARK NON-REACT MARK [facility] Comment: HIV-1 antigen and HIV-1/HIV-2 antibodies were not detected. There is no laboratory evidence of HIV infection. ?? PLEASE NOTE: This information has been disclosed to you from records whose confidentiality may be protected by state law. ??If your state requires such protection, then the state law prohibits you from making any further disclosure of the information without the specific written consent of the person to whom it pertains, or as otherwise permitted by law. A general authorization for the release of medical or other information is NOT sufficient for this purpose. ? For additional information please refer to http://education.[employer]/faq/MHH175 (This link is being provided for informational/ educational purposes only.) ? The performance of this assay has not been clinically validated in patients less than 2 years old. ?? 02/17/2021 3:5 0 PM EDT us Rock Rodrigues MD LAB BLOOD ORDERABLES Final Resul t [facility] [address] from Last 3 Months or Most Recently Relevant to Health Maintenance Insurance MEDICARE Member Subscriber Plan / Payer (Ef fective 2022-Present) Name:Coleen Tyler Member ID:[id number] Relation to Subscriber:Self Name:Coleen Tyler Subscriber ID:[id number] Payer ID:STATE Group ID:Not on file Type:Medicare Address: [employer] [facility]. [address] [place] [address] [place] [address] [facility] [employer] MEDICARE REPLACEMENT Care Teams Electronic Health Records Specialist Relationship Specialty Start Date End Date Name, MD Rock [address] [place] [address] PCP - General Family Medicine 07/04/15
--- OUTSIDE RECORDS SUMMARY | 2024-05-22 17:34 | XMS_ITS | Encounter Summary ---
Author Organization [employer] Address 75 [facility] 7 [place] [address] Care Team Providers Care Respiratory Services Manager Name Role Phone Name, Rock DE PAZ Primary Care Provider [phone] Reason for Visit * Reason Onset Date Comments Med Refill 05/08/2024 Encounter Details Date Type Department Care Team (Late st Contact Info) Description 05/08/2024 Refill [facility] MEDICINE [address] [place], [place] [phone] Name, MD Rock [address] [place], [place] [phone] Chronic pain syndrome; Insomnia, unspecified type Social History Tobacco Use [...] 1:00 PM EDT Clinical Support [facility] MEDICINE [address] [place] [address] Corrie Chen, RN documented as of this encounter Visit Diagnoses Diagnosis Chronic pain syndrome Insomnia, unspecified type documented in this encounter Additional Health Concerns Assessment Noted Time PHQ-9 Depression Total Score: 12 024 2:16 PM EDT documented as of this encounter Care Teams Respiratory Services Manager Relationship Specialty Start Date End Date Name, MD Rock [address] [place] [address] PCP - General Family Medicine 07/04/15 documented as of this encounter
--- OUTSIDE RECORDS SUMMARY | 2024-05-22 17:34 | XMS_ITS | Encounter Summary ---
Author Organization [employer] Address 75 [facility] 7 [place] [address] Care Team Providers Care Aluminum Molder Name Role Phone Name, Rock DE PAZ Primary Care Provider [phone] Reason for Visit * Reason Onset Date Comments Med Refill 03/10/2024 Encounter Details Date Type Department Care Team (Late st Contact Info) Description 03/10/2024 Refill [facility] MEDICINE [address] [place], [place] [phone] Name, MD Rock [address] [place], [place] [phone] Insomnia, unspecified type Social History Tobacco Use [...] 07/17/2024 1:00 PM EDT Clinical Support [facility] MEDICINE [address] [place] [address] Corrie Chen, SCOUT documented as of this encounter Visit Diagnoses Diagnosis Insomnia, unspecified type documented in this encounter Additional Health Concerns Assessment Noted Time PHQ-9 Depression Total Score: 12 024 2:16 PM EDT documented as of this encounter Care Teams Aluminum Molder Relationship Specialty Start Date End Date Name, MD Rock [address] [place] [address] PCP - General Family Medicine 07/04/15 documented as of this encounter
--- OUTSIDE RECORDS SUMMARY | 2024-05-22 17:34 | XMS_ITS | Encounter Summary ---
Author Organization [employer] Address 75 [facility] 7 [place] [address] Care Team Providers Care Captain Waiter/Waitress Name Role Phone Name, Rock DE PAZ Primary Care Provider [phone] Reason for Visit * Reason Comments Med Refill Encounter Details Date Type Department Care Team ([facility] st Contact Info) Description 05/08/2024 Refill [facility] MEDICINE [address] [place], [place] [phone] Name, MD Rock [address] [place], [place] [phone] Hypophosphatemia; Insomnia, unspecified type Social History Tobacco Use [...] Description 07/17/2024 1:00 PM EDT Clinical Support [facility] MEDICINE [address] [place] [address] Corrie Chen, SCOUT documented as of this encounter Visit Diagnoses Diagnosis Hypophosphatemia Disorders of phosphorus metabolism Insomnia, unspecified type documented in this encounter Additional Health Concerns Assessment Noted Time PHQ-9 Depression Total Score: 12 024 2:16 PM EDT documented as of this encounter Care Teams Captain Waiter/Waitress Relationship Specialty Start Date End Date Name, MD Rock [address] [place] [address] PCP - General Family Medicine 07/04/15 documented as of this encounter
--- OUTSIDE RECORDS SUMMARY | 2024-05-22 17:34 | XMS_ITS | Encounter Summary ---
Author Organization [employer] Address 75 [facility] 7t [place] [address] Care Team Providers Care Agricultural Chemicals Inspector Name Role Phone Name, Rock DE PAZ Primary Care Provider [phone] Encounter Details Date Type Department Care Team (Late st Contact Info) Description 11/24/2023 Abstract [facility] MEDICINE [address] [place], [place] [phone] Name, MD Rock [address] [place] [address] Social History Tobacco Use Types Packs/Day Years [...] Description 07/17/2024 1:00 PM EDT Clinical Support [facility] MEDICINE [address] [place] [address] Corrie Chen RN documented as of this encounter Procedures Procedure Name Priority Date/Time Associated Diagnosis Comments COLONOSCOPY Routine 11/22/2023 documented in this encounter Results * Colonoscopy (11/22/2023) Colonoscopy Normal Normal Rock Name HEALTH MAINTENANCE Final Result documented in this encounter Visit Diagnoses Not on filedocumented in this encounter Additional Health Concerns Assessment Noted Time PHQ-9 Depression Total Score: 12 024 2:16 PM EDT documented as of this encounter Care Teams Agricultural Chemicals Inspector Relationship Specialty Start Date End Date Name, MD Rock [address] [place] [address] PCP - General Family Medicine 07/04/15 documented as of this encounter
--- OUTSIDE RECORDS SUMMARY | 2024-05-22 17:34 | XMS_ITS | Encounter Summary ---
Author Organization [employer] Address 75 [facility] 7 [place] [address] Care Team Providers Care Front Line Leader Name Role Phone Name, Rock DE PAZ Primary Care Provider [phone] Reason for Visit * Reason Onset Date Comments Med Refill 05/08/2024 Encounter Details Date Type Department Care Team ([facility] st Contact Info) Description 05/08/2024 Refill [facility] MED & PEDS [address] [place] [address] Name, MD Rock 230 [place] [address] Rhinorrhea Social History Tobacco Use Types Packs/Day [...] Description 07/17/2024 1:00 PM EDT Clinical Support [facility] MEDICINE [address] [place] [address] Corrie Chen, SCOUT documented as of this encounter Visit Diagnoses Diagnosis Rhinorrhea Other diseases of nasal cavity and sinuses documented in this encounter Additional Health Concerns Assessment Noted Time PHQ-9 Depression Total Score: 12 024 2:16 PM EDT documented as of this encounter Care Teams Front Line Leader Relationship Specialty Start Date End Date Name, MD Rock [address] [place] [address] PCP - General Family Medicine 07/04/15 documented as of this encounter
--- OUTSIDE RECORDS SUMMARY | 2024-05-22 17:34 | XMS_ITS | Encounter Summary ---
Author Organization [employer] Address 75 [facility] 7 [place] [address] Care Team Providers Care Pyrometer Mechanic Name Role Phone Name, Rock DE PAZ Primary Care Provider [phone] Reason for Visit * Reason Onset Date Comments Med Refill 01/31/2024 Encounter Details Date Type Department Care Team ([facility] st Contact Info) Description 01/31/2024 Refill [facility] MED & PEDS [address] [place] [address] Juhi Diaz, PRODUCTION RECORDER [address] [place] [address] Chronic pain syndrome; Insomnia, unspecified type Social [...] 07/17/2024 1:00 PM EDT Clinical Support [facility] MEDICINE [address] [place] [address] Corrie Chen, SCOUT documented as of this encounter Visit Diagnoses Diagnosis Chronic pain syndrome Insomnia, unspecified type documented in this encounter Additional Health Concerns Assessment Noted Time PHQ-9 Depression Total Score: 12 024 2:16 PM EDT documented as of this encounter Care Teams Pyrometer Mechanic Relationship Specialty Start Date End Date Name, MD Rock [address] [place] [address] PCP - General Family Medicine 07/04/15 documented as of this encounter
--- OUTSIDE RECORDS SUMMARY | 2024-05-22 17:34 | XMS_ITS | Encounter Summary ---
Author Organization [employer] Address [address] [place] [address] Care Team Providers Care Tapping Machine Operator Automatic Name Role Phone Name, Rock DE PAZ Primary Care Provider [phone] Reason for Visit * Reason Comments Med Refill Encounter Details Date Type Department Care Team ([facility] st Contact Info) Description 03/04/2023 Refill [facility] MEDICINE [address] [place] [address] Christine Doe, QUENTIN [address] [place] [address] [place] [address] Social History Tobacco Use Types Packs/Day Years [...] Support [facility] MEDICINE [address] [place] [address] Corrie Chen RN documented as of this encounter Visit Diagnoses Not on filedocumented in this encounter Additional Health Concerns Assessment Noted Time PHQ-9 Depression Total Score: 21 023 10:14 AM EDT documented as of this encounter Care Teams Tapping Machine Operator Automatic Relationship Specialty Start Date End Date Name, MD Rock [address] [place] [address] PCP - General Family Medicine 07/04/15 documented as of this encounter
--- OUTSIDE RECORDS SUMMARY | 2024-05-22 17:34 | XMS_ITS | Encounter Summary ---
Author Organization [employer] Address 75 [facility] 7 [place] [address] Care Team Providers Care Athletic Equipment Manager Name Role Phone Name, Rock DE PAZ Primary Care Provider [phone] Reason for Visit * Reason Onset Date Comments Med Refill 02/09/2024 Encounter Details Date Type Department Care Team (Late st Contact Info) Description 02/09/2024 Refill [facility] MEDICINE [address] [place], [place] [phone] Name, MD Rock [address] [place], [place] [phone] Chronic pain syndrome; Insomnia, unspecified type Social [...] Description 07/17/2024 1:00 PM EDT Clinical Support [facility] MEDICINE [address] [place] [address] Corrie Chen, RN documented as of this encounter Visit Diagnoses Diagnosis Chronic pain syndrome Insomnia, unspecified type documented in this encounter Additional Health Concerns Assessment Noted Time PHQ-9 Depression Total Score: 12 024 2:16 PM EDT documented as of this encounter Care Teams Athletic Equipment Manager Relationship Specialty Start Date End Date Name, MD Rock [address] [place] [address] PCP - General Family Medicine 07/04/15 documented as of this encounter
--- OUTSIDE RECORDS SUMMARY | 2024-05-22 17:34 | XMS_ITS | Encounter Summary ---
Author Organization [employer] Address 75 [facility] 7 [place] [address] Care Team Providers Care Forest Fire Lookout Name Role Phone Name, Rock DE PAZ Primary Care Provider [phone] Reason for Visit * Reason Comments Med Refill Encounter Details Date Type Department Care Team (Late st Contact Info) Description 11/26/2022 Refill [facility] MEDICINE [address] [place], [place] [phone] Name, MD Rock [address] [place] [address] Chronic pain syndrome Social History Tobacco Use Types Packs/Day Years Used Date Smoking Tobacco: Former Cigarettes Smokeless Tobacco: Never Alcohol Use Standard Drinks/Week Comments Yes 0 (1 standard drink = 0.6 oz pur e alcohol) Ocassions (twice yearly) Depression Answer Date Recorded Patient Health Questionnaire-9 Score 21 11/20/2022 Depression Answer Date Recorded Patient Health Questionnaire-2 [...] suspected to have Coronavirus/COVID-19? No / Unsure 10/30/2022 12:44 PM EDT documented as of this encounter Plan of Treatment Upcoming Encounters Date Type Department Care Team (Late st Contact Info) Description 07/17/2024 1:00 PM EDT Clinical Support [facility] MEDICINE [address] [place] [address] Corrie Chen, RN documented as of this encounter Visit Diagnoses Diagnosis Chronic pain syndrome documented in this encounter Additional Health Concerns Assessment Noted Time PHQ-9 Depression Total Score: 21 11/20/ 023 10:14 AM EDT documented as of this encounter Care Teams Forest Fire Lookout Relationship Specialty Start Date End Date Name, MD Rock [address] [place] [address] PCP - General Family Medicine 07/04/15 documented as of this encounter
--- OUTSIDE RECORDS SUMMARY | 2024-05-22 17:34 | XMS_ITS | Encounter Summary ---
Author Organization [employer] Address 75 [facility] 7 [place] [address] Care Team Providers Care Sheet Folder Name Role Phone Name, Rock DE PAZ Primary Care Provider [phone] Reason for Visit * Reason Onset Date Comments Med Refill 02/09/2024 Encounter Details Date Type Department Care Team (Late st Contact Info) Description 02/09/2024 Refill [facility] MEDICINE 230 [place], [place] [phone] Name, MD Rock [address] [place], [place] [phone] Insomnia, unspecified type Social History Tobacco Use [...] Description 07/17/2024 1:00 PM EDT Clinical Support [facility] MEDICINE [address] [place] [address] Corrie Chen, SCOUT documented as of this encounter Visit Diagnoses Diagnosis Insomnia, unspecified type documented in this encounter Additional Health Concerns Assessment Noted Time PHQ-9 Depression Total Score: 12 024 2:16 PM EDT documented as of this encounter Care Teams Sheet Folder Relationship Specialty Start Date End Date Name, MD Rock [address] [place] [address] PCP - General Family Medicine 07/04/15 documented as of this encounter
--- OUTSIDE RECORDS SUMMARY | 2024-05-22 17:34 | XMS_ITS | Encounter Summary ---
Author Organization [employer] Address 75 [facility] 7 [place] [address] Care Team Providers Care Equity Director Name Role Phone Name, Rock DE PAZ Primary Care Provider [phone] Reason for Visit * Reason Onset Date Comments Med Refill 01/17/2024 Encounter Details Date Type Department Care Team ([facility] st Contact Info) Description 01/17/2024 Telephone [facility] MEDICINE [address] [place], [place] [phone] Name, MD Rock [address] [place], [place] [phone] Med Refill Social History Tobacco Use Types Packs/Day Years [...] encounter Miscellaneous Notes * Telephone Encounter - Cheyenne Sánchez LPN - 01/17/2024 10:51 AM EDT Medication pended to PCP. * Telephone Encounter - Oneal Mina - 01/17/2024 10:37 AM EDT TC from pt requesting medication refill. Medications needing refill : carisoprodol (Soma) 350 MG tablet zolpidem (Ambien) 10 MG tablet To be sent to: [facility] documented in this encounter Plan of Treatment Upcoming Encounters Date Type Department Care Team (Late st Contact Info) Description 07/17/2024 1:00 PM EDT Clinical Support [facility] MEDICINE [address] [place] [address] Correi Chen RN documented as of this encounter Visit Diagnoses Not on filedocumented in this encounter Additional Health Concerns Assessment Noted Time PHQ-9 Depression Total Score: 12 024 2:16 PM EDT documented as of this encounter Care Teams Equity Director Relationship Specialty Start Date End Date Name, MD Rock [address] [place] [address] PCP - General Family Medicine 07/04/15 documented as of this encounter
--- OUTSIDE RECORDS SUMMARY | 2024-05-22 17:34 | XMS_ITS | Encounter Summary ---
Author Organization [employer] Address 75 [facility] 7 [place] [address] Care Team Providers Care Feed Mill Manager Name Role Phone Name, Rock DE PAZ Primary Care Provider [phone] Reason for Visit * Reason Comments Med Refill Encounter Details Date Type Department Care Team (Late st Contact Info) Description 11/20/2022 Refill [facility] MEDICINE [address] [place] [address] Fany Pearson MD [address] [place] [address] Chronic pain syndrome; Insomnia, unspecified type Social [...] Description 07/17/2024 1:00 PM EDT Clinical Support [facility] MEDICINE [address] [place] [address] Corrie Chen RN documented as of this encounter Visit Diagnoses Diagnosis Chronic pain syndrome Insomnia, unspecified type documented in this encounter Additional Health Concerns Assessment Noted Time PHQ-9 Depression Total Score: 21 023 10:14 AM EDT documented as of this encounter Care Teams Feed Mill Manager Relationship Specialty Start Date End Date Name, MD Rock [address] [place] [address] PCP - General Family Medicine 07/04/15 documented as of this encounter
--- OUTSIDE RECORDS SUMMARY | 2024-05-22 17:34 | XMS_ITS | Encounter Summary ---
Author Organization [employer] Address 75 [facility] 7 [place] [address] Care Team Providers Care Alcohol Law Enforcement Agent Name Role Phone Name, Rock DE PAZ Primary Care Provider [phone] Reason for Visit * Reason Onset Date Comments Med Refill 05/08/2024 Encounter Details Date Type Department Care Team (Late st Contact Info) Description 05/08/2024 Refill [facility] MEDICINE 230 [place], [place] [phone] Name, MD Rock [address] [place], [place] [phone] Insomnia, unspecified type; Rhinorrhea Social History Tobacco Use Types Packs/Day [...] Description 07/17/2024 1:00 PM EDT Clinical Support [facility] MEDICINE [address] [place] [address] Corrie Chen, RN documented as of this encounter Visit Diagnoses Diagnosis Insomnia, unspecified type Rhinorrhea Other diseases of nasal cavity and sinuses documented in this encounter Additional Health Concerns Assessment Noted Time PHQ-9 Depression Total Score: 12 024 2:16 PM EDT documented as of this encounter Care Teams Alcohol Law Enforcement Agent Relationship Specialty Start Date End Date Name, MD Rock [address] [place] [address] PCP - General Family Medicine 07/04/15 documented as of this encounter
--- OUTSIDE RECORDS SUMMARY | 2024-05-22 17:34 | XMS_ITS | Encounter Summary ---
Author Organization [employer] Address 75 [facility] 7 [place] [address] Care Team Providers Care Brand Advisor Name Role Phone Name, Rock DE PAZ Primary Care Provider [phone] Reason for Visit * Reason Onset Date Comments Med Refill 03/02/2024 Encounter Details Date Type Department Care Team (Late st Contact Info) Description 03/02/2024 Refill [facility] MEDICINE [address] [place], [place] [phone] Name, MD Rock [address] [place] [address] Chronic pain syndrome Social History Tobacco Use [...] 1:00 PM EDT Clinical Support [facility] MEDICINE [address] [place] [address] Corrie Chen, SCOUT documented as of this encounter Visit Diagnoses Diagnosis Chronic pain syndrome documented in this encounter Additional Health Concerns Assessment Noted Time PHQ-9 Depression Total Score: 12 024 2:16 PM EDT documented as of this encounter Care Teams Brand Advisor Relationship Specialty Start Date End Date Name, MD Rock [address] [place] [address] PCP - General Family Medicine 07/04/15 documented as of this encounter
--- OUTSIDE RECORDS SUMMARY | 2024-05-22 17:34 | XMS_ITS | Encounter Summary ---
Author Organization [employer] Address 75 [facility] 7 [place] [address] Care Team Providers Care Credit Reference Clerk Name Role Phone Name, Rock DE PAZ Primary Care Provider [phone] Reason for Visit * Reason Comments Med Refill Encounter Details Date Type Department Care Team (Late st Contact Info) Description 11/23/2022 Refill [facility] [address] [place] [address] Fany Pearson MD [address] [place] [address] Chronic pain syndrome; Insomnia, unspecified type Social [...] 1:00 PM EDT Clinical Support [facility] [address] [place] [address] Corrie Chen RN documented as of this encounter Visit Diagnoses Diagnosis Chronic pain syndrome Insomnia, unspecified type documented in this encounter Additional Health Concerns Assessment Noted Time PHQ-9 Depression Total Score: 21 023 10:14 AM EDT documented as of this encounter Care Teams Credit Reference Clerk Relationship Specialty Start Date End Date Name, MD Rock [address] [place] [address] PCP - General Family Medicine 07/04/15 documented as of this encounter
--- OUTSIDE RECORDS SUMMARY | 2024-05-22 17:34 | XMS_ITS | Encounter Summary ---
Author Organization [employer] Address 75 [facility] 7 [place] [address] Care Team Providers Care Movie Operator Name Role Phone Name, Rock DE PAZ Primary Care Provider [phone] Reason for Visit * Reason Comments Cough Encounter Details Date Type Department Care Team ([facility] st Contact Info) Description 05/17/2024 2:00 PM EST Office Visit [facility] [address] [place] [address] [phone] Name, MD Rock [address] [place], [place] [phone] Cough, unspecified type (Primary Dx); Wheezing; History of asthma; Hypertension, unspecified type Social History Tobacco Use Types [...] AM EDT documented as of this encounter Last Filed Vital Signs Vital Sign Reading [...] Mass Index 29.95 05/17/2024 2:09 PM EST documented in this encounter Progress Notes * Rock Rodrigues MD - 05/17/2024 2:00 PM EST Subjective Patient ID: Coleen Tyler is a 64 y.o. female who presents for Cough. Patient comes for a follow-up visit. She tells me she has been sick for the past week. She describes malaise, cough, wheezing. No fevers or chills. No chest pain. During her visit she speaks in full sentences, she is afebrile, she has normal oxygen saturation. She had negative testing for COVID at home last week. She tells me she had asthma as a child. She does not smoke. We discussed the favorable results of her last colonoscopy that was normal in October of last year. She can repeat colonoscopy in 10 years. Today her BP is elevated. She is using 12.5 mg of HCTZ daily. She denies the use of [id number] decongestant. She does not check her blood pressure at home. Review of Systems Constitutional: Positive for fatigue. Negative for chills and fever. HENT: Negative for ear discharge and sore throat. Respiratory: Positive for cough and wheezing. Cardiovascular: Negative for chest pain, palpitations and leg swelling. Visit Vitals BP (!) 147/90 (BP Location: Right arm, Patient Position: Sitting, BP Cuff Size: Adult) Pulse 58 Temp 96 ??F (35.6 ??C) (Temporal) Resp 16 Ht 5' 7 (1.702 m) Wt 191 lb 3.2 oz (86.7 kg) SpO2 100% BMI 29.95 kg/m?? Smoking Status Former BSA 2.02 m?? Objective Physical Exam Constitutional: Appearance: Normal appearance. HENT: Right Ear: Tympanic membrane, ear canal and external ear normal. There is no impacted cerumen. Left Ear: Tympanic membrane, ear canal and external ear normal. There is no impacted cerumen. Cardiovascular: Rate and Rhythm: Normal rate and regular rhythm. Heart sounds: No murmur heard. No gallop. Pulmonary: Effort: Pulmonary effort is normal. No respiratory distress. Breath sounds: Normal breath sounds. No wheezing. Musculoskeletal: Right lower leg: No edema. Left lower leg: No edema. Neurological: Mental Status: She is alert. Latest Reference Range & Units 05/17/24 15:32 05/17/24 15:33 RAPID INFLUENZA A AGN Negative, Indeterminate Negative RAPID INFLUENZA B AGN Negative, Indeterminate Negative QC Media Lot # [id number] Rapid COVID Ag Negative Assessment/Plan Diagnoses and all orders for this visit: Cough, unspecified type Comments: Symptoms are consistent with bronchial hyperreactivity after viral URI. Rapid COVID and flu are negative today. I recommended fluids, rest, Tylenol. I prescribed for albuterol to use as needed. I prescribed Arnuity to use daily. I suggested prednisone but she tells me she gets very anxious when sheused prednisone in the past. She is encouraged to call if she does not feel much better by next week. I told her she can use the Arnuity together with albuterol. She is reminded to rinse mouth after use of inhaled steroid. Orders: - POCT Rapid Covid-19 BinaxNOW - POCT Rapid Influenza A OSOM - POCT Rapid Influenza B OSOM Wheezing History of asthma Hypertension, unspecified type Comments: I will double dose of HCTZ. She is encouraged to check blood pressure at home. She is encouraged tocall if blood pressure is persistently above 140/90. She is due to recheck BMP at [facility] next week. Other orders - hydroCHLOROthiazide (HYDRODiuril) 25 MG tablet; Take 1 tablet (25 mg) by mouth Once per day. - albuterol 108 (90 Base) MCG/ACT inhaler; Inhale 2 puffs every 6 (six) hours if needed for wheezing. - fluticasone furoate (Arnuity Ellipta) 200 MCG/ACT inhaler; Inhale 1 puff Once per day. Rinse mouth with water after use to reduce aftertaste and incidence of candidiasis. Do not swallow. documented in this encounter Plan of Treatment Upcoming Encounters Date Type Department Care Team (Late st Contact Info) Description 07/17/2024 1:00 PM EDT Clinical Support [address] [address] Corrie Chen RN documented as of this encounter Procedures Procedure Name Priority Date/Time Associated Diagnosis Comments POCT RAPID COVID ANTIGEN Routine 05/17/2024 3:33 PM EST Cough, unspecified type POCT INFLUENZA B Routine 05/17/2024 3:32 PM EST Cough, unspecified type POCT INFLUENZA A Routine 05/17/2024 3:32 PM EST Cough, unspecified type documented in this encounter Results * POCT Rapid Covid-19 BinaxNOW (05/17/2024 3:33 PM EST) Rapid COVID Ag Negative QC Media Lot # [id number] Lot# Expiration Date Swab 05/17/2024 3:33 PM EST Rock Rodrigues MD POINT OF CARE TEST ENTER/EDIT OR DERABLES Final Result * POCT Rapid Influenza B OSOM (05/17/2024 3:32 PM EST) Pathologist [facility] Rapid Influenza B Ag Negative Negative, Indeterminate QC Media Lot # [id number] Lot# Expiration Date Swab 05/17/2024 3:32 PM EST Rock Rodrigues MD POINT OF CARE TEST ENTER/EDIT OR DERABLES Final Result * POCT Rapid Influenza A OSOM (05/17/2024 3:32 PM EST) [facility] Rapid Influenza A Ag Negative Negative, Indeterminate QC Media Lot # [id number] Lot# Expiration Date Swab Nasopharyngeal structure / Unknown 05/17/2024 3:32 PM EST Rock Rodrigues MD POINT OF CARE TEST ENTER/EDIT OR DERABLES Final Result documented in this encounter Visit Diagnoses Diagnosis Cough, unspecified type- Primary Wheezing History of asthma Personal history of other diseases of respiratory system Hypertension, unspecified type documented in this encounter Additional Health Concerns Assessment Noted Time PHQ-9 Depression Total Score: 17 025 2:50 PM EST documented as of this encounter Care Teams Movie Operator Relationship Specialty Start Date End Date Name, MD Rock [address] [place] [address] PCP - General Family Medicine 07/04/15 documented as of this encounter
--- OUTSIDE RECORDS SUMMARY | 2024-05-22 17:34 | XMS_ITS | Encounter Summary ---
Author Organization [employer] Address 75 [facility] 7 [place] [address] Care Team Providers Care Adjutant General Name Role Phone Name, Rock DE PAZ Primary Care Provider Reason for Visit * Reason Comments Med Refill Encounter Details Date Type Department Care Team (Late st Contact Info) Description 11/18/2022 Refill [facility] [address] [place], [place] [phone] Name, MD Rock [address] [place] [address] Chronic pain syndrome Social History Tobacco Use [...] Description 07/17/2024 1:00 PM EDT Clinical Support [facility] [address] [place] [address] Corrie Chen, RN documented as of this encounter Visit Diagnoses Diagnosis Chronic pain syndrome documented in this encounter Care Teams Adjutant General Relationship Specialty Start Date End Date Name, MD Rock [address] [place] [address] PCP - General Family Medicine 07/04/15 documented as of this encounter
--- OUTSIDE RECORDS SUMMARY | 2024-05-22 17:34 | XMS_ITS | Encounter Summary ---
Author Organization [employer] Address 75 [facility] 7 [place] [address] Care Team Providers Care Angle Bender Name Role Phone Name, Rock DE PAZ Primary Care Provider [phone] Reason for Visit * Reason Onset Date Comments Med Refill 03/03/2024 Encounter Details Date Type Department Care Team (Late st Contact Info) Description 03/03/2024 Refill [facility] [address] [place], [place] [phone] Name, MD Rock [address] [place] [address] Chronic pain syndrome Social History Tobacco Use [...] Description 07/17/2024 1:00 PM EDT Clinical Support [facility] [address] [place] [address] Corrie Chen, SCOUT documented as of this encounter Visit Diagnoses Diagnosis Chronic pain syndrome documented in this encounter Additional Health Concerns Assessment Noted Time PHQ-9 Depression Total Score: 12 024 2:16 PM EDT documented as of this encounter Care Teams Angle Bender Relationship Specialty Start Date End Date Name, MD Rock [address] [place] [address] PCP - General Family Medicine 07/04/15 documented as of this encounter
--- OUTSIDE RECORDS SUMMARY | 2024-05-22 17:34 | XMS_ITS | Encounter Summary ---
Author Organization [employer] Address 75 [facility] 7t [place] [address] Care Team Providers Care Technical Associate Name Role Phone Name, Rock DE PAZ Primary Care Provider [phone] Reason for Visit * Reason Comments Med Refill Encounter Details Date Type Department Care Team ([facility] st Contact Info) Description 11/29/2023 Refill [facility] [address] [place] [address] [phone] Name, MD Rock [address] [place] [address] [phone] Chronic pain syndrome Social History Tobacco Use [...] 1:00 PM EDT Clinical Support [facility] [address] [place] [address] Corrie Chen, RN documented as of this encounter Visit Diagnoses Diagnosis Chronic pain syndrome documented in this encounter Additional Health Concerns Assessment Noted Time PHQ-9 Depression Total Score: 12 024 2:16 PM EDT documented as of this encounter Care Teams Technical Associate Relationship Specialty Start Date End Date Name, MD Rock [address] [place] [address] PCP - General Family Medicine 07/04/15 documented as of this encounter
--- OUTSIDE RECORDS SUMMARY | 2024-05-22 17:34 | XMS_ITS | Encounter Summary ---
Author Organization [employer] Address 75 [facility] 7 [place] [address] Care Team Providers Care Graphic Art Technician Name Role Phone Name, Rock DE PAZ Primary Care Provider [phone] Reason for Visit * Reason Onset Date Comments Appointment Request 11/02/2022 Encounter Details Date Type Department Care Team ([facility] st Contact Info) Description 11/02/2022 Telephone [facility] MED[facility]INE [address] [place] [address] [phone] Name, MD Rock [address] [place], [place] [phone] Appointment Request Social History Tobacco Use Types Packs/Day Years [...] PM EDT documented as of this encounter Miscellaneous Notes * Telephone Encounter - Chasity Cortez - 11/02/2022 1:42 PM EDT Tc from pt requesting orders for a full lab work. Pt denied any urgent concerns. Please contact at [phone] documented in this encounter Plan of Treatment Upcoming Encounters Date Type Department Care Team (Late st Contact Info) Description 07/17/2024 1:00 PM EDT Clinical Support [facility] [address] [place] [address] Corrie Chen RN documented as of this encounter Visit Diagnoses Not on filedocumented in this encounter Care Teams Graphic Art Technician Relationship Specialty Start Date End Date Name, MD Rock [address] [place] [address] PCP - General Family Medicine 07/04/15 documented as of this encounter
--- OUTSIDE RECORDS SUMMARY | 2024-05-22 17:34 | XMS_ITS | Encounter Summary ---
Author Organization [employer] Address 75 [facility] 7 [place] [address] Care Team Providers Care Javascript Application Developer Name Role Phone Name, Rock DE PAZ Primary Care Provider [phone] Reason for Visit * Reason Onset Date Comments Med Refill 02/09/2024 Encounter Details Date Type Department Care Team (Late st Contact Info) Description 02/09/[address] [facility] [address] [place], [place] [phone] Name, MD Rock [address] [place] [address] Social History Tobacco Use Types Packs/Day Years [...] Description 07/17/2024 1:00 PM EDT Clinical Support [facility] [address] [place] [address] Corrie Chen, RN documented as of this encounter Visit Diagnoses Not on filedocumented in this encounter Additional Health Concerns Assessment Noted Time PHQ-9 Depression Total Score: 12 024 2:16 PM EDT documented as of this encounter Care Teams Javascript Application Developer Relationship Specialty Start Date End Date Name, MD Rock [address] [place] [address] PCP - General Family Medicine 07/04/15 documented as of this encounter
--- OUTSIDE RECORDS SUMMARY | 2024-05-22 17:34 | XMS_ITS | Encounter Summary ---
Author Organization [employer] Address 75 [facility] 7 [place] [address] Care Team Providers Care Nutrition Partner Name Role Phone Name, Rock DE PAZ Primary Care Provider [phone] Reason for Visit * Reason Onset Date Comments Med Refill 03/02/2024 Encounter Details Date Type Department Care Team (Late st Contact Info) Description 03/02/2024 Refill [facility] [address] [place], [place] [phone] Name, MD Rock [address] [place] [address] Social History Tobacco Use Types Packs/Day Years [...] [facility] [address] [place] [address] Corrie Chen, RN documented as of this encounter Visit Diagnoses Not on filedocumented in this encounter Additional Health Concerns Assessment Noted Time PHQ-9 Depression Total Score: 12 024 2:16 PM EDT documented as of this encounter Care Teams Nutrition Partner Relationship Specialty Start Date End Date Name, MD Rock [address] [place] [address] PCP - General Family Medicine 07/04/15 documented as of this encounter
--- OUTSIDE RECORDS SUMMARY | 2024-05-22 17:34 | XMS_ITS | Encounter Summary ---
Author Organization [employer] Address 75 [facility] 7 [place] [address] Care Team Providers Care Sample Dye Mixer Name Role Phone Name, Rock DE PAZ Primary Care Provider [phone] Reason for Visit * Reason Onset Date Comments Med Refill 03/10/2024 Encounter Details Date Type Department Care Team ([facility] st Contact Info) Description 03/10/[address] [facility] [address] [place], [place] [phone] Name, MD Rock [address] [place], [place] [phone] Hypophosphatemia Social History Tobacco Use Types Packs/Day Years [...] 07/17/2024 1:00 PM EDT Clinical Support [facility] [address] [place] [phone] Corrie Chen, RN documented as of this encounter Visit Diagnoses Diagnosis Hypophosphatemia Disorders of phosphorus metabolism documented in this encounter Additional Health Concerns Assessment Noted Time PHQ-9 Depression Total Score: 12 024 2:16 PM EDT documented as of this encounter Care Teams Sample Dye Mixer Relationship Specialty Start Date End Date Name, MD Rock [address] [place] [address] PCP - General Family Medicine 07/04/15 documented as of this encounter
--- OUTSIDE RECORDS SUMMARY | 2024-05-22 17:34 | XMS_ITS | Encounter Summary ---
Author Organization [employer] Address 75 [facility] 7t [place] [address] Care Team Providers Care Traffic And Transport Planner Name Role Phone Name, Rock DE PAZ Primary Care Provider [phone] Encounter Details Date Type Department Care Team (Latest Contact Info) Description 05/17/2024 Travel Social History Tobacco Use Types Packs/Day Years [...] Description 07/17/2024 1:00 PM EDT Clinical Support [facility] MED[facility]INE [address] [place] [address] Corrie Chen, RN documented as of this encounter Visit Diagnoses Not on filedocumented in this encounter Additional Health Concerns Assessment Noted Time PHQ-9 Depression Total Score: 17 025 2:50 PM EST documented as of this encounter Care Teams Traffic And Transport Planner Relationship Specialty Start Date End Date Name, MD Rock [address] [place] [address] PCP - General Family Medicine 07/04/15 documented as of this encounter
== END 2024-05-22 13:49 | disposition home or self-care (01) ==
PROVIDERS: PCP Internal Medicine Geriatric Medicine; Visit Provider Student in an Organized Health Care Education/Training Program
DX: Z85.850 Personal history of malignant neoplasm of thyroid (principal); E89.0 Postprocedural hypothyroidism
CPT/HCPCS: 99214; G2211

== ENCOUNTER → 2024-05-22 12:52 | Outpatient (BNVA) | payer MEDICARE, MEDICAID, SELFPAY | PROVIDERS: PCP Internal Medicine Geriatric Medicine; Visit Provider Student in an Organized Health Care Education/Training Program | DX: E89.0 Postprocedural hypothyroidism (principal); Z85.850 Personal history of malignant neoplasm of thyroid | CPT/HCPCS: 99212 ==

== ENCOUNTER 2024-05-22 14:11 | Outpatient (REF) | payer OTHER, MEDICAID, MEDICARE, SELFPAY ==
[2024-05-22 15:59] LABS: Albumin Level 4.5 g/dL (3.5-5.0); Anion Gap 16 (12-20); Blood Urea Nitrogen 20 mg/dL (9-16); Carbon Dioxide 27 mmol/L (22-29); Chloride 99 mmol/L (96-108); Estimated Glomerular Filt Rate > 60; Glucose Fasting 173 mg/dL (60-99); Potassium 3.9 mmol/L (3.3-5.1); Sodium 138 mmol/L (135-145)
[2024-05-22 16:15] LABS: Free T4 (Free Thyroxine) 1.39 ng/dL (0.71-1.85)
[2024-05-22 16:16] LABS: Thyroid Stimulating Hormone 0.28 uIU/mL (0.32-4.0)
--- OUTSIDE RECORDS SUMMARY | 2024-05-22 18:44 | XMS_ITS | Encounter Summary ---
Author Organization [employer] Address 75 [facility] 7t [place] [address] Care Team Providers Care Livestock Auctioneer Name Role Phone Name, Rock DE PAZ Primary Care Provider [phone] Reason for Visit * Reason Comments Med Refill Encounter Details Date Type Department Care Team ([facility] st Contact Info) Description 11/29/2023 Refill [facility] [address] [place] [address] [phone] Name, MD Rock [address] [place] [address] [phone] Chronic pain syndrome Social History Tobacco Use [...] Description 07/17/2024 1:00 PM EDT Clinical Support [facility] [address] [place] [address] Corrie Chen, RN documented as of this encounter Visit Diagnoses Diagnosis Chronic pain syndrome documented in this encounter Additional Health Concerns Assessment Noted Time PHQ-9 Depression Total Score: 12 024 2:16 PM EDT documented as of this encounter Care Teams Livestock Auctioneer Relationship Specialty Start Date End Date Name, MD Rock [address] [place] [address] PCP - General Family Medicine 07/04/15 documented as of this encounter
--- OUTSIDE RECORDS SUMMARY | 2024-05-22 18:44 | XMS_ITS | Encounter Summary ---
Author Organization [facility] Address [address] [place] [address] Care Team Providers Care Emergency Room Physician Name Role Phone Name, Rock DE PAZ Primary Care Provider Unavailabl e Deepali Santana MD Primary Care Provider [phone] Name, Rock DE PAZ Primary Care Provider Unavailabl e Encounter Details Date Type Department Care Team Description 02/22/2013 Measurement Department Chief Clerk Report Medical Records [address] [place] [address] Saira Blackmon MD Social History Tobacco Use Types Packs/Day Years Used Date Smoking Tobacco: Former Cigarettes Q uit: 04/26/2004 Smokeless Tobacco: Former Comments:quit 2004 Alcohol Use Standard Drinks/Week Comments Yes 0 (1 standard drink = 0.6 oz pur e alcohol) socially Sex Assigned at Date Recorded Not on file documented as of this encounter Plan of Treatment Not on file documented as of this encounter Visit Diagnoses Not on filedocumented in this encounter Care Teams Emergency Room Physician Relationship Specialty Start Date End Date Rock Rodrigues MD PCP - General 10/10/10 05/20/15 Deepali Santana MD [address] [place] [address] PCP - General Internal Medicine 05/21/15 07/17/15 Rock Rodrigues MD [address] [place] [address] PCP - General Internal Medicine 07/18/15 documented as of this encounter
--- OUTSIDE RECORDS SUMMARY | 2024-05-22 18:44 | XMS_ITS | Encounter Summary ---
Author Organization [employer] Address [address] [place] [address] 7 [place] [address] Care Team Providers Care Imaging Specialist Name Role Phone Name, Rock DE PAZ Primary Care Provider [phone] Encounter Details Date Type Department Care Team (Late Contact Info) Description 04/30/2022 Orders Only [facility] CHC MED & PEDS [address] [place] [address] Cheyenne Sánchez LPN Social History Tobacco Use [...] 1:00 PM EDT Clinical Support [facility] MEDICINE [address] [place], [place] [phone] Corrie Chen RN documented as of this [...] N Telopetide (NTx) 50 see note H [facility] Comment:Result Units: nM BCE /mM creatPremenopausal Females: 4 - 64 nM BCE/mM creatResults are primarily used for monitoring theresponse to therapy. A value within thepremenopausal range does not rule out osteoporosisnor the need for therapyUnits of Measure: nM BCE/mM creat CREATININE, RANDOM URINE 114 20 - 275 mg/dL [facility] Comment:THIS TEST WAS PERFOR MED AT:[facility] [place] [address]WDGGULKCARMELITA WRIGHT MD,PHD 05/04/2022 3:06 PM EST 05/04/2022 3:22 PM EST us [facility] External Provider LAB URI NE ORDERABLES Final Result Performing Organization Address City/[facility]/ZIP Co de Phone Number [facility] [address] [place] [phone] * Protein Electrophoresis and [place]/[employer] (05/04/2022 2:30 PM EST) Prot Elec - Total Protein 7.0 6.1 - 8.1 g/dL [facility] Prot Elec - Albumin 4.2 3.8 - 4.8 g/dL [facility] Prot Elec - Alpha1 0.3 0.2 - 0.3 g/dL [facility] Prot Elec - Alpha2 0.8 0.5 - 0.9 g/dL [facility] Prot Elec - Beta 1 0.6 0.4 - 0.6 g/dL [facility] Prot Elec - Beta 2 0.3 0.2 - 0.5 g/dL [facility] Prot Elec - Gamma 0.8 0.8 - 1.7 g/dL [facility] PES - Abn Protein Band 1 TNP [facility] PES-Abn Protein Band [facility] PES-Abn Protein Band 3 [facility] Prot Elec - Interpretation SEE NOTE [facility] Comment:Normal Electrophoret ic PatternTHIS TEST WAS PERFORMED AT:[facility] [address] ([address] [address]EVTBONANCY ADKINS MD 05/04/2022 2:30 PM EST 05/04/2022 2:33 PM EST [facility] External Provider LAB BLO OD ORDERABLES Final Result Performing Organization Address City/[facility]/ZIP Co de Phone Number [facility] [address] [place] [phone] * Alkaline Phosphatase, Bone Specific (05/04/2022 2:30 PM EST) Alkaline Phosphatase, Bone Specific 11.6 5.6 - 29.0 mcg/L [facility] Comment:Reference Range, Pre menopausal (mcg/L) 35-45 years 5.0-18.2THIS TEST WAS PERFORMED AT:[facility] [id number] [place] [address]VRQXTXVCARMELITA WRIGHT MD,PHD 05/04/2022 2:30 PM EST 05/04/2022 2:33 PM EST [facility] External Provider LAB BLO OD ORDERABLES Final Result Performing Organization Address [facility] Co de Phone Number [facility] [address] [place] [phone] * Thyroid Peroxidase And Thyroglobulin Antibodies (05/04/2022 2:30 PM EST) Thyroglobulin Antibodies <1 < or = 1 IU/mL [facility] Comment:THIS TEST WAS PERFOR MED AT:[facility] [address] ([address], [place] [address]UTLGQNANCY ADKINS MD 05/04/2022 2:30 PM EST 05/04/2022 2:33 PM EST [facility] External Provider LAB BLO OD ORDERABLES Final Result Performing Organization Address [facility] de Phone Number [facility] [address] [place] [phone] * (ABNORMAL) Thyroglobulin, LC/MS/MS (05/04/2022 2:30 PM EST) Thyroglobulin, LC/MS/MS <0.1(A) ng/mL [facility] Comment:Reference Range: Int act Thyroid 2.8-40.9 Athyrotic <0.1 Note: Abnormal flagging is based on the reference interval for patients with intact thyroid.This test was performed using the Kristen Coulterchemiluminescent method. Values obtained fromdifferent assay methods cannot be usedinterchangeably. Thyroglobulin levels, regardlessof value, should not be interpreted as absoluteevidence of the presence or absence of disease. Thyroglobulin Comment See Below [facility] Comment:Thyroglobulin antibo dies (TGAB) interfere withthyroglobulin (TG) assays; therefore, TGAB assayshould always be performed in conjunction with aTG assay.For additional information, please refer [email or web address] SITE/faq/[email or web address](This link is being provided for informational/educational purposes only.)THIS TEST WAS PERFORMED AT:[facility] [place] [address] (1)[place] [address]LCIWCNANCY ADKINS MD 05/04/2022 2:30 PM EST 05/04/2022 2:33 PM EST [facility] External Provider LAB BLO OD ORDERABLES Final Result Performing Organization Address [facility] Co de Phone Number [facility] [address] [place] [phone] * PTH, Intact Without Calcium (05/04/2022 2:30 PM EST) PTHI 73 16 - 77 pg/mL [facility] Comment:Interpretive Guide I ntact PTH Calcium -------Normal Parathyroid Normal NormalHypoparathyroidism Low or Low Normal LowHyperparathyroidism Primary Normal or High High Secondary High Normal or Low Tertiary High HighNon-Parathyroid Hypercalcemia Low or Low Normal High Calcium (PTHI) 8.9 8.6 - 10.4 mg/dL [facility] Comment:THIS TEST WAS PERFOR MED AT:[facility] [place] [address] (1)[place] [address]GTHQUNANCY ADKINS MD 05/04/2022 2:30 PM EST 05/04/2022 2:33 PM EST [facility] External Provider LAB BLO OD ORDERABLES Final Result Performing Organization Address City/[facility]/ZIP Co de Phone Number [facility] [address] [place] [phone] * TSH (05/04/2022 2:30 PM EST) Thyroid Stimulating Hormone 3.46 0.32 - 4.0 uIU/mL [facility] Comment:Note: A sustained TS H level above 2.5 uIU/mL may warrant further investigation. TSH 3rd Generation ([facility]) 05/04/2022 2:30 PM EST 05/04/2022 2:33 PM EST [facility] External Provider LAB BLO OD ORDERABLES Final Result Performing Organization Address [facility] Co de Phone Number [facility] [address] [place] [phone] * T4, Free (05/04/2022 2:30 PM EST) Free T4 (Free Thyroxine) 1.14 0.71 - 1.85 ng/dL [facility] 05/04/2022 2:30 PM EST 05/04/2022 2:33 PM EST [facility] External Provider LAB BLO OD ORDERABLES Final Result Performing Organization Address [facility] Co de Phone Number [facility] [address] [place] [phone] * Vitamin D, 25-Hydroxy, Total, Immunoassay (05/04/2022 2:30 PM EST) Vitamin D 25-OH Total 25.8 >30 ng/mL [facility] Comment:Health Based Referen ce Values*< 20 ng/mL [id number] ng/mL Insufficient> 30 ng/mL Sufficient*[place]ver KRUSE. N [...] 2:30 PM EST 05/04/2022 2:33 PM EST [facility] External Provider LAB BLO OD ORDERABLES Final Result Performing Organization Address [facility]/ZIP Co de Phone Number [facility] [address] [place] [phone] * Phosphate (As Phosphorus) (05/04/2022 2:30 PM EST) Phosphorus 3.0 2.7 - 4.5 mg/dL [facility] 05/04/2022 2:30 PM EST 05/04/2022 2:33 PM EST [facility] External Provider LAB BLO OD ORDERABLES Final Result Performing Organization Address [facility] Co de Phone Number [facility] [address] [place] [phone] * Comprehensive Metabolic Panel (05/04/2022 2:30 PM EST) Sodium 138 135 - 145 mmol/L [facility] Potassium 4.8 3.3 - 5.1 mmol/L [facility] Chloride 106 96 - 108 mmol/L [facility] Carbon Dioxide 24 22 - 29 mmol/L [facility] Anion Gap 13 12 - 20 [facility] Urea Nitrogen (BUN) 15 9 - 16 mg/dL [facility] Creatinine, Serum 0.85 0.5 - 1.4 mg/dL [facility] Estimated Glomerular Filt Rate >60 [facility] Comment:NOTE: For -Am erican individuals, multiply the result by 1.210.Chronic Kidney Disease: Estimated GFR < 60 mL/min/1.53b2Moinbv Kidney Disease: Estimated GFR < 15 mL/min/1.73m2 Glucose 90 60 - 115 mg/dL [facility] Calcium 9.0 8.4 - 10.2 mg/dL [facility] Bilirubin, Total 0.3 0.0 - 1.0 mg/dL [facility] Aspartate Amino Transferase 26 5 - 31 U/L [facility] Alanine Aminotransferase 28 0 - 31 U/L [facility] Total Protein 6.8 6.5 - 8.0 g/dL [facility] Albumin Level 4.2 3.5 - 5.0 g/dL [facility] Alkaline Phosphatase 61 39 - 117 U/L [facility] 05/04/2022 2:30 PM EST 05/04/2022 2:33 PM EST [facility] External Provider LAB BLO OD ORDERABLES Final Result [facility] [address] [place] [phone] documented in this encounter Visit Diagnoses Not on filedocumented in this encounter Care Teams Imaging Specialist Relationship Specialty Start Date End Date Name, MD Rock [address] [place] [address] PCP - General Family Medicine 07/04/15 documented as of this encounter
--- OUTSIDE RECORDS SUMMARY | 2024-05-22 18:44 | XMS_ITS | Encounter Summary ---
Author Organization [facility] Address [address] [place] [address] Care Team Providers Care Bushler Name Role Phone Name, Rock DE PAZ Primary Care Provider Unavailabl e Deepali Santana MD Primary Care Provider [phone] Name, Rock DE PAZ Primary Care Provider Unavailabl e Encounter Details Date Type Department Care Team Description 02/27/2014 Carpet Cutter Report Medical Records [address] [place] [address] Venancio Suggs MD Social History Tobacco Use Types Packs/Day [...] on filedocumented in this encounter Care Teams Bushler Relationship Specialty Start Date End Date Rock Rodrigues MD PCP - General 10/10/10 05/20/15 Deepali Santana MD [address] [place] [address] PCP - General Internal Medicine 05/21/15 07/17/15 Rock Rodrigues MD [address] [place] [address] PCP - General Internal Medicine 07/18/15 documented as of this encounter
--- OUTSIDE RECORDS SUMMARY | 2024-05-22 18:44 | XMS_ITS | Encounter Summary ---
Author Organization [employer] Address [address] [facility] [address]t [place] [address] Care Team Providers Care Vegetable Tester Name Role Phone Name, Rock DE PAZ Primary Care Provider [phone] Encounter Details Date Type Department Care Team (Late st Contact Info) Description 11/24/2023 Abstract [facility] MEDICINE [address] [place], [place] [phone] Name, MD Rock [address] [place] [address] Social History Tobacco Use Types Packs/Day Years [...] Description 07/17/2024 1:00 PM EDT Clinical Support [facility] MEDICINE [address] [place] [address] Corrie Chen RN documented as of this [...] documented as of this encounter Care Teams Vegetable Tester Relationship Specialty Start Date End Date Name, MD Rock [address] [place] [address] PCP - General Family Medicine 07/04/15 documented as of this encounter
--- OUTSIDE RECORDS SUMMARY | 2024-05-22 18:44 | XMS_ITS | Encounter Summary ---
Author Organization [facility] Address [address] [place] [address] Care Team Providers Care Rn Placement Name Role Phone NameRock MD Primary Care Provider Unavailabl e Deepali Santana MD Primary Care Provider [phone] Name, Rock DE PAZ Primary Care Provider Unavailabl e Encounter Details Date Type Department Care Team Description 08/31/2013 Fruit Washer Report Medical Records [address] [place] [address] Akshat Gallagher Social History Tobacco Use Types Packs/Day Years [...] on filedocumented in this encounter Care Teams Rn Placement Relationship Specialty Start Date End Date Rock Rodrigues MD PCP - General 10/10/10 05/20/15 Deepali Santana MD [address] [place] [address] PCP - General Internal Medicine 05/21/15 07/17/15 Rock Rodrigues MD [address] [place] [address] PCP - General Internal Medicine 07/18/15 documented as of this encounter
--- OUTSIDE RECORDS SUMMARY | 2024-05-22 18:44 | XMS_ITS | Encounter Summary ---
Author Organization [employer] Address [address] [facility] 7t [place] [address] Care Team Providers Care Employment And Claims Aide Name Role Phone Name, Rock DE PAZ Primary Care Provider [phone] Encounter Details Date Type Department Care Team (Late st Contact Info) Description 05/22/2024 Orders Only GENERIC EXTERNAL DATA DEPARTMENT Provider, Generic External Data Social History Tobacco Use Types Packs/Day Years [...] Description 07/17/2024 1:00 PM EDT Clinical Support [facility] MEDICINE [address] [place] [address] Corrie Chen RN documented as of this encounter Procedures Procedure Name Priority Date/Time Associated Diagnosis Comments T4, FREE Routine 05/22/2024 2:49 PM EST documented in this encounter Results * T4, Free (05/22/2024 2:49 PM EST) Free T4 (Free Thyroxine) 1.39 0.71 - 1.85 ng/dL [facility] 05/22/2024 2:49 PM EST 05/22/2024 2:49 PM EST us Generic External Data Provider LAB BLOOD ORDERAB LES Final Result [facility] [address] [place] [address] [phone] documented in this encounter Visit Diagnoses Not on filedocumented in this encounter Additional Health Concerns Assessment Noted Time PHQ-9 Depression Total Score: 17 025 2:50 PM EST documented as of this encounter Care Teams Employment And Claims Aide Relationship Specialty Start Date End Date Name, MD Rock [address] [place] [address] PCP - General Family Medicine 07/04/15 documented as of this encounter
--- OUTSIDE RECORDS SUMMARY | 2024-05-22 18:44 | XMS_ITS | Encounter Summary ---
Author Organization [facility] Address [address] [place] [address] Care Team Providers Care Director Utilization Management Name Role Phone Name, Rock DE PAZ Primary Care Provider Unavailabl e Deepali aSntana MD Primary Care Provider [phone] Name, Rock DE PAZ Primary Care Provider Unavailabl e Encounter Details Date Type Department Care Team Description 08/17/2013 Hospital Medical Records [address] [place] [address] Margaret Mcnulty Social History Tobacco Use Types Packs/Day Years [...] on filedocumented in this encounter Care Teams Director Utilization Management Relationship Specialty Start Date End Date Rock Rodrigues MD PCP - General 10/10/10 05/20/15 Deepali Santana MD [address] [place] [address] PCP - General Internal Medicine 05/21/15 07/17/15 Rock Rodrigues MD [address] [place] [address] PCP - General Internal Medicine 07/18/15 documented as of this encounter
--- OUTSIDE RECORDS SUMMARY | 2024-05-22 18:44 | XMS_ITS | Encounter Summary ---
Author Organization [employer] Address [address] [place] [address] [address] [place] [address] Care Team Providers Care Courtroom Reporter Name Role Phone Name, Rock DE PAZ Primary Care Provider [phone] Reason for Visit * Reason Comments Med Refill Encounter Details Date Type Department Care Team (Late st Contact Info) Description 04/08/2022 Refill [facility] [address] [place] [address] Yoni Mccormick MD [address] [place] [address] Social History Tobacco Use Types Packs/Day Years [...] 1:00 PM EDT Clinical Support [facility] [address] [place] [address] Corrie Chen, RN documented as of this encounter Visit Diagnoses Not on filedocumented in this encounter Care Teams Courtroom Reporter Relationship Specialty Start Date End Date Name, MD Rock [address] [place] [address] PCP - General Family Medicine 07/04/15 documented as of this encounter
--- OUTSIDE RECORDS SUMMARY | 2024-05-22 18:44 | XMS_ITS | Encounter Summary ---
Author Organization [employer] Address [address] [facility] 7 [place] [address] Care Team Providers Care Stonemason Name Role Phone Name, Rock DE PAZ Primary Care Provider [phone] Reason for Visit * Reason Onset Date Comments Prior Authorization 05/04/2024 carisoprodol (Soma) Encounter Details Date Type Department Care Team ([facility] st Contact Info) Description 05/04/[address] [facility] MEDICINE [address] [place], [place] [phone] Name, MD Rock [address] [place], [place] [phone] Prior Authorization (carisoprodol (Soma) ) Social History [...] covering provider for review and signature via [employer]. documented in this encounter Plan of Treatment Upcoming Encounters Date Type Department Care Team (Late st Contact Info) Description 07/17/2024 1:00 PM EDT Clinical Support [facility] MEDIC[facility] [address] [place] [address] Corrie Chen, SCOUT documented as of this encounter Visit Diagnoses Not on filedocumented in this encounter Additional Health Concerns Assessment Noted Time PHQ-9 Depression Total Score: 12 024 2:16 PM EDT documented as of this encounter Care Teams Stonemason Relationship Specialty Start Date End Date Name, MD Rock [address] [place] [address] PCP - General Family Medicine 07/04/15 documented as of this encounter
--- OUTSIDE RECORDS SUMMARY | 2024-05-22 18:44 | XMS_ITS | Encounter Summary ---
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
--- OUTSIDE RECORDS SUMMARY | 2024-05-22 18:44 | XMS_ITS | Encounter Summary ---
Author Organization [employer] Address [address] [facility] 7 [place] [address] Care Team Providers Care Sourcing Analyst Name Role Phone Name, Rock DE PAZ Primary Care Provider Reason for Visit * Reason Onset Date Comments Med Refill 01/17/2024 Encounter Details Date Type Department Care Team ([facility] st Contact Info) Description 01/17/2024 Telephone [facility] MEDICINE [address] [place], [place] [phone] Name, MD Rock [address] [place], [place] [phone] Med Refill Social History Tobacco Use Types [...] 10 MG tablet To be sent to: [facility] documented in this encounter Plan of Treatment Upcoming Encounters Date Type Department Care Team (Late st Contact Info) Description 07/17/2024 1:00 PM EDT Clinical Support [facility] MEDICINE [address] [place] [address] Corrie Chen RN documented as of this encounter Visit Diagnoses Not on filedocumented in this encounter Additional Health Concerns Assessment Noted Time PHQ-9 Depression Total Score: 12 024 2:16 PM EDT documented as of this encounter Care Teams Sourcing Analyst Relationship Specialty Start Date End Date Name, MD Rock [address] [place] [address] PCP - General Family Medicine 07/04/15 documented as of this encounter
--- OUTSIDE RECORDS SUMMARY | 2024-05-22 18:44 | XMS_ITS | Encounter Summary ---
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 02/16/2013 Encounter Details Date Type Department Care Team Description 02/16/2013 Telephone Adult Medicine [address] [address] Name, MD Rock Gas Distribution Plant Operator Feedback Social History Tobacco Use Types Packs/Day Years Used Date Smoking Tobacco: Former Cigarettes Q uit: 04/26/2004 Smokeless Tobacco: Former Comments:quit 2004 Alcohol Use Standard Drinks/Week Comments Yes 0 (1 standard drink = 0.6 oz pur e alcohol) socially Sex Assigned at Date Recorded Not on file documented as of this encounter Miscellaneous Notes * Telephone Encounter - Denae Sy - 02/16/2013 2:37 PM EDT This provider does not do annual exams, patient would need to have a diagnosis associated with seeing this specialist. This patient did cancel 3 appointments last year for her Conoloscopy, if she is looking to have this done she can discuss this with her Primary Care so that he may place the appropriate order. Thank you Denae Watson Coordinator [facility] * Telephone Encounter - Gregoria Jorge - 02/16/2013 1:43 PM EDT Did you verify this is patients current insurance? YES [place] Product Type: [place]ICA[place] [id number] Effective 01/24/09: BCBS will not retro referral requests over 90 days. If request is for this please instruct patient to call the 800# on their insurance card to appeal. Do not submit a request. Referrals cannot be processed if the insurance is not accurate. If the insurance listed above in red is NO BILLING INFORMATION FOUND FOR THIS ENCOUTNER The patients correct insurance must be obtained and registered in [facility] or their referral can not be processed. Who is calling to request this referral? Coleen Tyler (pt) If the caller is not the patient, what is their name? N/A FIRST and LAST NAME of SPECIALIST PATIENT is seeing: Dr. Dozier What specialty is this? Gastroenterology DIAGNOSIS Patient is being seen for (Not a body part or a procedure): annual Have you seen this SPECIALIST for this PROBLEM/DX before?NO If YES, when: N/A Have you checked REVIEW or the APPT DESK to see if this referral has already been done or has visits left? YES Who referred the patient to this specialty? Name Is this visit:Initial Visit Address of Specialist: [address] [place] [address] Phone # of Specialist: [phone] Fax #: (if applicable): N/A Does patient have an appointment scheduled?: NO Date of appointment- (including a retro-request): N/A Is this appointment related to: Not MVA, WC or Surgery related documented in this encounter Plan of Treatment Not on file documented as of this encounter Visit Diagnoses Not on filedocumented in this encounter Care Teams Mail Manager Relationship Specialty Start Date End Date Name, MD Rock PCP - General 10/10/10 05/20/15 Deepali Santana MD [address] [place] [address] PCP - General Internal Medicine 05/21/15 07/17/15 Name, MD Rock [address] [place] [address] PCP - General Internal Medicine 07/18/15 documented as of this encounter
--- OUTSIDE RECORDS SUMMARY | 2024-05-22 18:44 | XMS_ITS | Encounter Summary ---
Author Organization [facility] Address [address] [place] [address] Care Team Providers Care Stitch Bonder Machine Operator Helper Name Role Phone Name, Rock DE PAZ Primary Care Provider Unavailabl e Deepali Santana MD Primary Care Provider [phone] Name, Rock DE PAZ Primary Care Provider Unavailabl e Encounter Details Date Type Department Care Team Description 12/22/2012 Hospital Medical Records [address] [place] [address] Venancio Suggs MD Social History Tobacco Use [...] on filedocumented in this encounter Care Teams Stitch Bonder Machine Operator Helper Relationship Specialty Start Date End Date Rock Rodrigues MD PCP - General 10/10/10 05/20/15 Deepali Santana MD [address] [place] [address] PCP - General Internal Medicine 05/21/15 07/17/15 Rock Rodrigues MD [address] [place] [address] PCP - General Internal Medicine 07/18/15 documented as of this encounter
--- OUTSIDE RECORDS SUMMARY | 2024-05-22 18:44 | XMS_ITS | Encounter Summary ---
Author Organization [employer] Address [address] [place] [address] [address] [place] [address] Care Team Providers Care Bilingual Customer Service Specialist Name Role Phone Name, Rock DE PAZ Primary Care Provider [phone] Reason for Visit * Reason Comments Med Refill Encounter Details Date Type Department Care Team ([facility] Contact Info) Description 09/21/2022 Refill [facility] [address] [place] [address] [phone] Name, MD Rock [address] [place] [address] Insomnia, unspecified type; Pain Social History Tobacco [...] Upcoming Encounters Date Type Department Care Team ([facility] Contact Info) Description 07/17/2024 1:00 PM EDT Clinical Support [facility] [address] [place] [address] Corrie Chen, SCOUT documented as of this encounter Visit Diagnoses Diagnosis Insomnia, unspecified type Pain Generalized pain documented in this encounter Care Teams Bilingual Customer Service Specialist Relationship Specialty Start Date End Date Name, MD Rock [address] [place] [address] PCP - General Family Medicine 07/04/15 documented as of this encounter
--- OUTSIDE RECORDS SUMMARY | 2024-05-22 18:44 | XMS_ITS | Encounter Summary ---
Author Organization [employer] Address [address] [place] [address] 7 [place] [address] Care Team Providers Care Principal Solutions Architect Name Role Phone Name, Rock DE PAZ Primary Care Provider [phone] Reason for Visit * Reason Comments Med Refill Encounter Details Date Type Department Care Team (Late st Contact Info) Description 09/16/2022 Refill [facility] [address] [place] [address] [phone] Name, MD Rock [address] [place] [address] Chronic pain syndrome Social History Tobacco Use [...] Description 07/17/2024 1:00 PM EDT Clinical Support [facility] [address] [place] [address] Corrie Chen, SCOUT documented as of this encounter Visit Diagnoses Diagnosis Chronic pain syndrome documented in this encounter Care Teams Principal Solutions Architect Relationship Specialty Start Date End Date Name, MD Rock [address] [place] [address] PCP - General Family Medicine 07/04/15 documented as of this encounter
--- OUTSIDE RECORDS SUMMARY | 2024-05-22 18:44 | XMS_ITS | Encounter Summary ---
Author Organization [facility] Address [address] [place] [address] Care Team Providers Care Manager Track Name Role Phone Name, Rock DE PAZ Primary Care Provider Unavailabl e Deepali Santana MD Primary Care Provider [phone] Name, Rock DE PAZ Primary Care Provider Unavailabl e Reason for Visit * Reason Onset Date Comments Prior Authorization 09/05/2013 Encounter Details Date Type Department Care Team Description 09/05/2013 Telephone Adult Medicine [address] [address] Name, MD Rock Prior Authorization Social History Tobacco Use Types Packs/Day Years Used Date Smoking Tobacco: Former Cigarettes Q uit: 04/26/2004 Smokeless Tobacco: Former Comments:quit 2004 Alcohol Use Standard Drinks/Week Comments Yes 0 (1 standard drink = 0.6 oz pur e alcohol) socially Sex Assigned at Date Recorded Not on file documented as of this encounter Miscellaneous Notes * Telephone Encounter - Rubia [email or web address].NBerta - 09/13/2013 3:21 PM EDT Received letter of denial for this medication for the 300 mg tabs. The 50.100 and 150 mg tabs are covered w/o p/a. Please consider changing to these. Order placed for 150 mg 2 q hs * Telephone Encounter - Rubia GrimaldoPDusty - 09/08/2013 1:20 PM EDT P/a faxed to insurance,awaiting response. * Telephone Encounter - Rubia Gardner L.P.N. - 09/08/2013 10:07 AM EDT P/a to dr Rodrigues to sign * Telephone Encounter - Karen Lara - 09/05/2013 10:24 AM EDT Pre Authorization for Medication Does the patient already have this medication?NO Name of Medication trazodone (DESYREL) Dose of Medication 300 MG tablet How does patient take this med? Take 1 Tab by mouth at bedtime. What other dosage or similar medication have you tried in the past for this problem Patients current medical insurance [facility] What Prescription Plan does the patient have? [facility] Prescription Plan Tel # from back of prescription ID card What is the patients Prescription Plan ID #? [id number] What Pharmacy does the patient use? [facility] Payor: [place] Plan: MEDICAID P[facility] Product Type: MEDICAID [id number] documented in this encounter Plan of Treatment Not on file documented as of this encounter Visit Diagnoses Not on filedocumented in this encounter Care Teams Manager Track Relationship Specialty Start Date End Date Name, MD Rock PCP - General 10/10/10 05/20/15 Deepali Santana MD [address] [place] [address] PCP - General Internal Medicine 05/21/15 07/17/15 Name, MD Rock [address] [place] [address] PCP - General Internal Medicine 07/18/15 documented as of this encounter
--- OUTSIDE RECORDS SUMMARY | 2024-05-22 18:44 | XMS_ITS | Encounter Summary ---
Author Organization [facility] Address [address] [place] [address] Care Team Providers Care Funeral Prearrangement Counselor Name Role Phone Rock Rodrigues MD Primary Care Provider Unavailabl e Deepali Santana MD Primary Care Provider [phone] NameRock MD Primary Care Provider Unavailabl e Reason for Referral * Specialist (Routine) - Authorized/Booked Specialty Diagnoses / Procedures Referred By Walter doe Referred To Contact Neurology Procedures REFERRAL TO NEUROLOGY Rock Rodrigues MD [address] [place] [address] External Neurology Referral ID Status Reason Start Date Expiration Date V isits Requested Visits Authorized SEE REVIEW 03/21/13 Authorized/ Booked 03/21/2013 06/21/2013 1 1 Reason for Visit * Reason Onset Date Comments Potato Chip Processing Supervisor Feedback 03/20/2013 Encounter Details Date Type Department Care Team Description 03/20/2013 Telephone Adult Medicine [address] [address] Name, MD Rock Potato Chip Processing Supervisor Feedback Social History Tobacco Use Types Packs/Day Years Used Date Smoking Tobacco: Former Cigarettes Q uit: 04/26/2004 Smokeless Tobacco: Former Comments:quit 2004 Alcohol Use Standard Drinks/Week Comments Yes 0 (1 standard drink = 0.6 oz pur e alcohol) socially Sex Assigned at Date Recorded Not on file documented as of this encounter Miscellaneous Notes * Telephone Encounter - Julia Pena - 03/21/2013 8:14 AM EST Please review this patients new referral request. The referral has been pended. Please complete thefollowing: If approved> sign order If denied>please give instructions and route to your practice nursing pool. Practice nurse should inform referrals and the patient if denied. * Telephone Encounter - Gregoria Jorge - 03/20/2013 4:38 PM EST Did you verify this is patients current insurance? YES Pay[place] Product Type: MEDICAID [id number] Effective 01/24/09: BCBS will not retro referral [...] insurance must be obtained and registered in [facility] or their referral can not be processed. Who is calling to request this referral? [facility] If the caller is not the patient, what is their name? Citlali FIRST and LAST NAME of SPECIALIST PATIENT is seeing: Aliyah Ruiz NPI # [id number] What specialty is this? Sleep disorders DIAGNOSIS Patient is being seen for (Not a body part or a procedure): Obstructive sleep apnea Have you seen this SPECIALIST for this PROBLEM/DX before?NO If YES, when: Have you checked REVIEW or the APPT DESK to see if this referral has already been done or has visits left? YES Who referred the patient to this specialty? Rock Name Is this visit:Initial Visit Address of Specialist: [address] Phone # of Specialist: [phone] Fax #: (if applicable):[phone] Does patient have an appointment scheduled?: NO Date of appointment- (including a retro-request): Is this appointment related to: Not MVA, WC or Surgery related documented in this encounter Plan of Treatment Not on file documented as of this encounter Visit Diagnoses Not on filedocumented in this encounter Care Teams Funeral Prearrangement Counselor Relationship Specialty Start Date End Date Name, MD Rock PCP - General 10/10/10 05/20/15 Deepali Santana MD [address] [place] [address] PCP - General Internal Medicine 05/21/15 07/17/15 Name, MD Rock [address] [place] [address] PCP - General Internal Medicine 07/18/15 documented as of this encounter
--- OUTSIDE RECORDS SUMMARY | 2024-05-22 18:44 | XMS_ITS | Encounter Summary ---
Author Organization [employer] Address [address] [facility] [address] [place] [address] Care Team Providers Care Outbound Sales Specialist Name Role Phone Name, Rock DE PAZ Primary Care Provider [phone] Reason for Visit * Reason Onset Date Comments Med Refill 03/03/2024 Encounter Details Date Type Department Care Team (Late st Contact Info) Description 03/03/2024 Refill [facility] [address] [place], [place] [phone] Name, MD Rock [address] [place] [address] Chronic pain syndrome Social History Tobacco Use [...] Description 07/17/2024 1:00 PM EDT Clinical Support [facility] [address] [place] [address] Corrie Chen, SCOUT documented as of this encounter Visit Diagnoses Diagnosis Chronic pain syndrome documented in this encounter Additional Health Concerns Assessment Noted Time PHQ-9 Depression Total Score: 12 024 2:16 PM EDT documented as of this encounter Care Teams Outbound Sales Specialist Relationship Specialty Start Date End Date Name, MD Rock [address] [place] [address] PCP - General Family Medicine 07/04/15 documented as of this encounter
--- OUTSIDE RECORDS SUMMARY | 2024-05-22 18:44 | XMS_ITS | Clinical Summary ---
Author Organization [employer] Address 75 [facility] 7t [place] [address] Care Team Providers Care River Crossing Supervisor Name Role Phone Name, Rock DE PAZ Primary Care Provider [phone] Allergies Active Allergy Reactions Criticality Noted Date [...] DEPARTMENT Provider, Generic External Data 05/20/2024 Refill [facility] [address] [place] [address] NameRock MD Chronic pain syndrome 05/17/2024 2:00 PM EST Office Visit [facility] [address] [place] [address] Rock Rodrigues MD Cough, unspecified type (Primary Dx); Wheezing; History of asthma; Hypertension, unspecified type 05/17/2024 Travel 05/09/2024 Refill [facility] [address] [place] [address] Rock Rodrigues MD Rhinorrhea 05/08/2024 Refill [facility] [address] [place] [address] Rock Rodrigues MD Rhinorrhea 05/08/2024 Refill [facility] [address] [facility] [place] [address] Rock Rodrigues MD Chronic pain syndrome; Insomnia, unspecified type 05/08/2024 Refill [facility] [address] [place] [address] Rock Rodrigues MD Insomnia, unspecified type; Rhinorrhea 05/08/2024 Refill [facility] 230 [facility] [place] [address] Rock Rodrigues MD Hypophosphatemia; Insomnia, unspecified type 05/04/2024 Telephone [facility] [address] [place] [address] [place] [address] Rock Rodrigues MD Prior Authorization (carisoprodol (Soma) ) 04/27/2024 Refill [facility] [address] [place] [address] Rock Rodrigues MD Chronic pain syndrome 04/22/2024 Refill [facility] [address] [place] [address] Rock Rodrigues MD Chronic pain syndrome 04/21/2024 Telephone [facility] [address] [place] [address] Dorota Henry MA PCP OUT 04/18/2024 11:30 AM EST Clinical Support [facility] [address] [place] [address] Corrie Chen RN Chronic pain syndrome (Primary Dx) 04/18/2024 Telephone [facility] [address] [place] [address] Corrie Chen RN Abnormal UTOX 04/18/2024 Travel 04/18/2024 Telephone [facility] [address] [place] [address] Corrie Chen RN Recommend [employer] Tier 2 04/16/2024 Refill [facility] [address] [place] [address] Rock Rodrigues MD Chronic pain syndrome (Primary Dx) 04/10/2024 Telephone [facility] [address] [place] [address] [place] [address] NameRock MD Appointment Request 04/07/2024 Refill [facility] [address] [place] [address] Name, MD Rock Insomnia, unspecified type 03/27/2024 Refill [facility] [address] [place] [address] Name, MD Rock Chronic pain syndrome 03/10/2024 Refill [facility] [address] [place] [address] NameRock MD Hypophosphatemia 03/10/2024 Refill [facility] [address] [place] [address] Name, MD Rock Insomnia, unspecified type 03/08/2024 Refill [facility] 230 [place] [address] Name, MD Rock Chronic pain syndrome (Primary Dx) 03/03/2024 Refill [facility] [address] [place] [address] Name, MD Rock Chronic pain syndrome 03/02/2024 Refill [facility] 230 [place] [address] Name, MD Rock Insomnia, unspecified type; Chronic pain syndrome 03/02/2024 Refill [facility] [address] [place] [address] Name, MD Rock 03/02/2024 Refill [facility] 230 [place] [address] Name, MD Rock Chronic pain syndrome 02/29/2024 Refill [facility] 230 [place] [address] Name, MD Rock Hypophosphatemia from Last 3 Months Immunizations Name Administration Dates Next Due INFLUENZA VACCINE QUADRIVALE NT RECOMBINANT PRESERVATIVE FREE RIV4 01/20/2020,02/09/2019 Influenza injectable quadriv alent preservative free 02/15/2023,01/07/2022,02/17/2021,01/15,01/28/2017,01/22/2016 Influenza, IIV3, injectable 01/07/2015,1 ,02/16/2013,01/10,01/24/2009 Novel [id number], preservative-free 04/03/2009 Pfizer Covid-19 Vaccine 12+ 03/29/2023 [...] Description 07/17/2024 1:00 PM EDT Clinical Support [facility] [address] [place] [address] Corrie Chen, RN Health Maintenance Due Date [...] (Free Thyroxine) 1.39 0.71 - 1.85 ng/dL [facility] 05/22/2024 2:49 PM EST 05/22/2024 2:49 PM EST us Generic External Data Provider LAB BLOOD ORDERAB LES Final Result [facility] [address] [place] [address] [phone] * POCT Rapid Covid-19 BinaxNOW (05/17/2024 3:33 PM EST) [facility] Rapid COVID Ag Negative QC Media Lot # [id number] Lot# Expiration Date Swab 05/17/2024 3:33 PM EST Result [facility] POINT OF CARE TEST ENTER/EDIT OR DERABLES Final Result * POCT Rapid Influenza B OSOM (05/17/2024 3:32 PM EST) [facility] Rapid Influenza B Ag Negative Negative, Indeterminate QC Media Lot # [id number] Lot# Expiration Date Swab 05/17/2024 3:32 PM EST Result [facility] POINT OF CARE TEST ENTER/EDIT OR DERABLES Final Result * POCT Rapid Influenza A OSOM (05/17/2024 3:32 PM EST) [facility] Rapid Influenza A Ag Negative Negative, Indeterminate QC Media Lot # [id number] Lot# Expiration Date Swab Nasopharyngeal structure / Unknown 05/17/2024 3:32 PM EST Result [facility] POINT OF CARE TEST ENTER/EDIT OR DERABLES Final Result * (ABNORMAL) POCT PAULETTE-14 Urine Drug Screen (04/18/2024 11:51 AM EST) [facility] THC Positive Methadone Screen, Urine Positive TCA, Urine Positive Phencyclidine (PCP), Urine Positive Urine Urine specimen obtained by clean catch procedure / Unknown 04/18/2024 11:51 AM EST Corrie Gomez RN - 04/18/2024 11:51 AM EST UTOX cup Lot#[id number] Exp. 01/18/26 Internal Pass Control Result [facility] POINT OF CARE TEST ENTER/EDIT OR DERABLES Final Result * Drug Monitoring, Phencyclidine, Quantitative, Urine (04/18/2024 11:30 AM EST) Phencyclidine [facility] Comment:REFERENCE RANGE: <25 ng/mLThis drug testing is for medical treatment only.Analysis was performed as non-forensic testing andthese results should be used only by healthcareproviders to render diagnosis or treatment, or tomonitor progress of medical conditions.LDT Notes:Confirmation tests were developed and their analyticalperformance characteristics have been determined by[employer]. It has not been cleared or approvedby the FDA. This assay has been validated pursuant tothe CLIA regulations and is used for clinical purposes.Healthcare Providers needing Interpretation assistance,please contact us at [phone] ( )M- F, 8am to 10pm ESTTHIS TEST PERFORMED AT:[employer] [address] [phone] DIRECTOR: NANCY ADKINS MD Urine (Urine, Random) 04/18/2024 11:30 AM EST 04/18/2024 1:23 PM EST us Rock Rodrigues MD LAB URINE ORDERABLES Final Resul t Performing Organization Address [facility] Co de Phone Number [facility] [address] [place] [address] [phone] * Drug Monitoring, Methadone Metabolite, Screen, Urine (04/18/2024 11:30 AM EST) Methadone Screen, Urine Not Detected Not Detect ng/mL [facility] Comment:Methadone cut-off is 300 ng/mL.Positive results are unconfirmed and should not be used fornon-medical purposes. Urine (Urine, Random) 04/18/2024 11:30 AM EST 04/18/2024 1:23 PM EST us Rock Rodrigues MD LAB URINE ORDERABLES Final Resul t Performing Organization Address City/[facility]/ZIP Co de Phone Number [facility] [address] [place] [address] [phone] * BI Mammogram Screening Tomosynthesis Bilateral (02/04/2024 1:40 PM EDT) Anatomical Region Laterality Modality Breast Bilateral Mammography 02/04/2024 1:40 PM EDT Narrative 02/17/2024 9:45 PM EDT ? [facility] [place] ? [address] ?[place] [address] ? Mammography Report ? Signed ? Patient: Jayson,Coleen ?MR#: [id number] ? : 1960 ?Acct:[id number] ? Age/Sex: 64 / F ?ADM Date: 02/04/24 ? Loc: HO.MAMMO ? Attending Dr: Rock Name MD ? Ordering Physician: Name,Rock MD ?Results: 1Negative ? Date of Service: 02/04/24 ?Follow Up: 1 Year From Orig ?? inal Mammogram ? Procedure(s): MM tomosynthesis screening BI ?? Accession Number(s): [id number] ? cc: Name,Rock DE PAZ ? EXAMINATION: [...] DD/ 1340 ? TD/TT: 02/04/24 1358 ? Fraud Examiner: ? Procedure Note Shelley, [place] - 02/17/2024 [facility] [address] [place] [address] Mammography Report Signed Patient: John Tyler#: [id number] : 1Acct:[id number] Age/Sex: 64 / FADM Date: 02/04/24 Loc: HO.MAMMO Attending Dr: Rock Rodrigues MD Ordering Physician: Rock Rodriguesesults: 1Negative Date of Service: 02/04/24Follow Up: 1 Year From Orig inal Mammogram Procedure(s): MM tomosynthesis screening BI Accession Number(s): [id number] cc: Rock Rodrigues MD EXAMINATION: MM SCREENING [...] 02/17/24 2142 DD/ 1340 TD/TT: 02/04/24 1358 Fraud Examiner: us Rock Name IMYareli BI PROCEDURES Edited Result - Final * (ABNORMAL) Lipid Panel, Standard (12/07/2023 11:55 AM EDT) Triglycerides 236(H) <150 mg/dL [facility] Comment:Desirable Triglyceri de: less than 150 mg/dLBorderline High Triglyceride 150-199 mg/dLHigh Triglyceride: 200-499 mg/dLVery High Triglyceride: greater than or equal to 5OO mg/dL Cholesterol 300(H) <200 mg/dL [facility] Comment:Desirable Cholestero l: less than 200 mg/dLBorderline High Cholesterol: 200-239 mg/dLHigh Cholesterol: greater than 239 mg/dL LDL Cholesterol Calculated 214(H) <100 mg/dL [facility] Comment:Desirable LDL: less than 100 mg/dLNear Optimal/Above Optimal LDL: 110- 129 mg/dLBorderline High LDL: 130-159 mg/dLHigh LDL: 160-189 mg/dLVery High LDL: greater than or equal to 190 mg/dL HDL Cholesterol 39(L) >40 mg/dL [facility] Comment:Desirable HDL: great er than 40 mg/dL Note: This HDL assay may give artificially low results in patients with liver disease. 12/07/2023 11:5 5 AM EDT 12/07/2023 11:55 AM EDT us Generic External Data Provider LAB BLOOD ORDERAB LES Final Result [facility] [address] [place] [phone] * Hm Colonoscopy (11/22/2023) Colonoscopy Normal [...] has been evaluated with computer assisted technology. [facility] Echocardiograph Technician: SEE COMMENT [facility] Comment: VICTOR MANUEL SPAULDING(ASCP) CT screening location: [address] ??[address] HPV nRNA E6/E7 Not Detected Not Detected [employer] [facility] Comment: Methodology: Photographic Processor-Mediated Amplification This assay detects E6/E7 viral messenger RNA (mRNA) from 14 high-risk HPV types (16,18,31,33,35,39,45,51,52,56,58,59,66,68). ? Cervical sources are required for HPV testing. If a vaginal source from a patient who has had a total hysterectomy with removal of cervix was ?? submitted, please contact the testing laboratory for alternative testing options. ?? For additional information, please refer to [email or web address]/faq/EUE656l7 (This link if provided for information/ educational [...] SYSTEM Statement Of Adequacy: SATISFACTORY FOR EVALUATION [facility] 01/07/2022 3:18 PM EDT Tisha CHAMBERS LAB PATHOLOGY ORDERABLES Final Result Performing Organization Address [facility] Phone Number [facility] [address] * HEPATITIS C AB W/REFL TO HCV RNA, QN, PCR (12/23/2021 2:35 PM EDT) Pathologist [facility] HEPATITIS C ANTIBODY NON-REACT MARK NON-REACT MARK [facility] INDEX 0.12 <1.00 [facility] Comment: ?? HCV antibody was non-reactive. There is no laboratory ?? evidence of HCV infection. ?? In most cases, no further action is required. However, if recent HCV exposure is suspected, a test for HCV RNA (test code 58159) is suggested. ?? For additional information please refer to http://[email or web address]/faq/ZJJ16c7 (This link is being provided for informational/ educational purposes only.) ?? 12/23/2021 2:35 PM EDT Rock Rodrigues MD HISTORICAL/NON ORDERABLE LABS Fi nal Result Performing Organization Address [facility] Co de Phone Number [facility] [address] * HIV 1/2 ANTIGEN/ANTIBODY,FOURTH GENERATION W/RFL (02/17/2021 3:50 PM EDT) HIV-1/2 ANTIGEN AND ANTIBODIES, 4TH GENERATION W/ REFLEX NON-REACT MARK NON-REACT MARK [facility] Comment: HIV-1 antigen and HIV-1/HIV-2 [...] ? For additional information please refer to http://education.[employer]/faq/KNL959 (This link is being provided for informational/ educational purposes only.) ? The performance of this assay has not been clinically validated in patients less than 2 years old. ?? 02/17/2021 3:5 0 PM EDT us Rock Rodrigues MD LAB BLOOD ORDERABLES Final Resul t [facility] [address] from Last 3 Months or Most Recently Relevant to Health Maintenance Insurance [place] [address] [place] [id number] [facility] [employer] MEDICARE REPLACEMENT Care Teams [place] Crossing Supervisor Relationship Specialty Start Date End Date Name, MD Rock [address] [place] [address] PCP - General Family Medicine 07/04/15
--- OUTSIDE RECORDS SUMMARY | 2024-05-22 18:44 | XMS_ITS | Encounter Summary ---
Author Organization [facility] Address [address] [place] [address] Care Team Providers Care Engineer Byproduct Name Role Phone Name, Rock DE PAZ Primary Care Provider Unavailabl e Deepali Santana MD Primary Care Provider [phone] Name, Rock DE PAZ Primary Care Provider Unavailabl e Encounter Details Date Type Department Care Team Description 11/17/2010 Telephone OBGYN - [facility] [address] [place] [address] Jonatan Latif MD Social History Tobacco Use Types Packs/Day [...] on filedocumented in this encounter Care Teams Engineer Byproduct Relationship Specialty Start Date End Date Name, MD Rock PCP - General 10/10/10 05/20/15 Deepali Santana MD [address] [place] [address] PCP - General Internal Medicine 05/21/15 07/17/15 Rock Rodrigues MD [address] [place] [address] PCP - General Internal Medicine 07/18/15 documented as of this encounter
--- OUTSIDE RECORDS SUMMARY | 2024-05-22 18:44 | XMS_ITS | Encounter Summary ---
Author Organization [employer] Address [address] [facility] 7 [place] [address] Care Team Providers Care Deck Hand Name Role Phone Name, Rock DE PAZ Primary Care Provider [phone] Reason for Visit * Reason Onset Date Comments Med Refill 03/10/2024 Encounter Details Date Type Department Care Team ([facility] st Contact Info) Description 03/10/2024 Refill [facility] [address] [place], [place] [phone] Name, MD Rock [address] [place], [place] [phone] Hypophosphatemia Social History Tobacco Use Types Packs/Day [...] Description 07/17/2024 1:00 PM EDT Clinical Support [facility] [address] [place] [address] Corrie Chen, RN documented as of this encounter Visit Diagnoses Diagnosis Hypophosphatemia Disorders of phosphorus metabolism documented in this encounter Additional Health Concerns Assessment Noted Time PHQ-9 Depression Total Score: 12 024 2:16 PM EDT documented as of this encounter Care Teams Deck Hand Relationship Specialty Start Date End Date Name, MD Rock [address] [place] [address] PCP - General Family Medicine 07/04/15 documented as of this encounter
--- OUTSIDE RECORDS SUMMARY | 2024-05-22 18:44 | XMS_ITS | Encounter Summary ---
Author Organization [facility] Address [address] [place] [address] Care Team Providers Care Tourist Camp Attendant Name Role Phone Name, Rock DE PAZ Primary Care Provider Unavailabl e Reynaldo Nascimento MD Primary Care Provider Unav ailReynaldo Garcia MD Primary Care Provider Unav ailable Deepali Santana MD Primary Care Provider [phone] Name, Rock DE PAZ Primary Care Provider Unavailabl e Encounter Details Date Type Department Care Team Description 11/12/2005 Hospital Medical Records [address] [place] [address] Arthur Cagle MD Social History Tobacco Use Types Packs/Day [...] on filedocumented in this encounter Care Teams Tourist Camp Attendant Relationship Specialty Start Date End Date Name, MD Rock PCP - General 10/10/10 05/20/15 Reynaldo Nascimento MD PCP - General 04/09/10 10/09/10 Reynaldo Nascimento MD PCP - General 03/02/01 04/08/10 Deepali Santana MD [address] [place] [address] PCP - General Internal Medicine 05/21/15 07/17/15 Name, MD Rock [address] [place] [address] PCP - General Internal Medicine 07/18/15 documented as of this encounter
--- OUTSIDE RECORDS SUMMARY | 2024-05-22 18:44 | XMS_ITS | Encounter Summary ---
Author Organization [employer] Address [address] [facility] 7 [place] [address] Care Team Providers Care Income Tax Manager Name Role Phone Name, Rock DE PAZ Primary Care Provider [phone] Reason for Visit * Reason Onset Date Comments Med Refill 04/22/2024 Encounter Details Date Type Department Care Team (Late st Contact Info) Description 04/22/[address] [facility] [address] [place], [place] [phone] Name, MD Rock [address] [place] [address] Chronic pain syndrome Social History Tobacco Use [...] 07/17/2024 1:00 PM EDT Clinical Support [facility] [address] [place] [address] Corrie Chen, SCOUT documented as of this encounter Visit Diagnoses Diagnosis Chronic pain syndrome documented in this encounter Additional Health Concerns Assessment Noted Time PHQ-9 Depression Total Score: 12 024 2:16 PM EDT documented as of this encounter Care Teams Income Tax Manager Relationship Specialty Start Date End Date Name, MD Rock [address] [place] [address] PCP - General Family Medicine 07/04/15 documented as of this encounter
--- OUTSIDE RECORDS SUMMARY | 2024-05-22 18:44 | XMS_ITS | Encounter Summary ---
Author Organization [employer] Address [address] [place] [address] 7 [place] [address] Care Team Providers Care Burning Plant Operator Name Role Phone Name, Rock DE PAZ Primary Care Provider [phone] Encounter Details Date Type Department Care Team ([facility] Contact Info) Description 09/14/2022 Abstract [facility] [address] [place] [address] Name, MD Rock [address] [place] [address] Social History Tobacco Use Types Packs/Day Years [...] Upcoming Encounters Date Type Department Care Team ([facility] Contact Info) Description 07/17/2024 1:00 PM EDT Clinical Support [address] [address] Corrie Chen, RN documented as of this [...] on filedocumented in this encounter Care Teams Burning Plant Operator Relationship Specialty Start Date End Date Name, MD Rock 230 [place] [address] PCP - General Family Medicine 07/04/15 documented as of this encounter
--- OUTSIDE RECORDS SUMMARY | 2024-05-22 18:44 | XMS_ITS | Encounter Summary ---
Author Organization [employer] Address [address] [facility] 7 [place] [address] Care Team Providers Care Education Courses Sales Representative Name Role Phone Name, Rock DE PAZ Primary Care Provider [phone] Reason for Visit * Reason Onset Date Comments Med Refill 04/27/2024 Encounter Details Date Type Department Care Team (Late st Contact Info) Description 04/27/2024 Refill [facility] [address] [place], [place] [phone] Name, MD Rock [address] [place], [place] [phone] Chronic pain syndrome Social History Tobacco Use [...] Description 07/17/2024 1:00 PM EDT Clinical Support [facility] [address] [place] [address] Corrie Chen, SCOUT documented as of this encounter Visit Diagnoses Diagnosis Chronic pain syndrome documented in this encounter Additional Health Concerns Assessment Noted Time PHQ-9 Depression Total Score: 12 024 2:16 PM EDT documented as of this encounter Care Teams Education Courses Sales Representative Relationship Specialty Start Date End Date Name, MD Rock [address] [place] [address] PCP - General Family Medicine 07/04/15 documented as of this encounter
--- OUTSIDE RECORDS SUMMARY | 2024-05-22 18:44 | XMS_ITS | Encounter Summary ---
Author Organization [employer] Address [address] [place] [address] 7 [place] [address] Care Team Providers Care Talent Acquisition Administrator Name Role Phone Name, Rock DE PAZ Primary Care Provider [phone] Encounter Details Date Type Department Care Team ([facility] Contact Info) Description 05/06/2022 Orders Only [facility] [address] [place] [address] Karen Falk LPN Social History Tobacco Use [...] Description 07/17/2024 1:00 PM EDT Clinical Support [address] [address] Corrie Chen RN documented as of this encounter Visit Diagnoses Not on filedocumented in this encounter Care Teams Talent Acquisition Administrator Relationship Specialty Start Date End Date Name, MD Rock [address] [place] [address] [place] [address] PCP - General Family Medicine 07/04/15 documented as of this encounter
--- OUTSIDE RECORDS SUMMARY | 2024-05-22 18:44 | XMS_ITS | Encounter Summary ---
Author Organization [employer] Address [address] [facility] 7 [place] [address] Care Team Providers Care Motorboat Operator Name Role Phone Name, Rock DE PAZ Primary Care Provider [phone] Reason for Visit * Reason Onset Date Comments Med Refill 05/20/2024 Encounter Details Date Type Department Care Team (Late st Contact Info) Description 05/20/2024 Refill [facility] [address] [place], [place] [phone] Name, MD Rock [address] [place], [place] [phone] Chronic pain syndrome Social History Tobacco Use [...] 1:00 PM EDT Clinical Support [facility] [address] [place] [address] Corrie Chen, SCOUT documented as of this encounter Visit Diagnoses Diagnosis Chronic pain syndrome documented in this encounter Additional Health Concerns Assessment Noted Time PHQ-9 Depression Total Score: 17 025 2:50 PM EST documented as of this encounter Care Teams Motorboat Operator Relationship Specialty Start Date End Date Name, MD Rock [address] [place] [address] PCP - General Family Medicine 07/04/15 documented as of this encounter
--- OUTSIDE RECORDS SUMMARY | 2024-05-22 18:44 | XMS_ITS | Encounter Summary ---
Author Organization [facility] Address [address] [place] [address] Care Team Providers Care Truck Driver Instructor Name Role Phone Name, Rock DE PAZ Primary Care Provider Unavailabl e Deepali Santana MD Primary Care Provider [phone] Name, Rock DE PAZ Primary Care Provider Unavailabl e Encounter Details Date Type Department Care Team Description 02/14/2014 Hospital Medical Records [address] [place] [address] Venancio Suggs MD Social History Tobacco Use [...] on filedocumented in this encounter Care Teams Truck Driver Instructor Relationship Specialty Start Date End Date Rock Rodrigues MD PCP - General 10/10/10 05/20/15 Deepali Santana MD [address] [place], [place] [phone] PCP - General Internal Medicine 05/21/15 07/17/15 Rock Rodrigues MD [address] [place] [address] PCP - General Internal Medicine 07/18/15 documented as of this encounter
--- OUTSIDE RECORDS SUMMARY | 2024-05-22 18:45 | XMS_ITS | Encounter Summary ---
Author Organization [employer] Address 75 [facility] 7 [place] [address] Care Team Providers Care Aviation Survival Technician Name Role Phone Name, Rock DE PAZ Primary Care Provider [phone] Reason for Visit * Reason Onset Date Comments Med Refill 05/08/2024 Encounter Details Date Type Department Care Team (Late st Contact Info) Description 05/08/2024 Refill [facility] MEDICINE [address] [place], [place] [phone] Name, MD Rock [address] [place], [place] [phone] Insomnia, unspecified type; Rhinorrhea Social History Tobacco [...] 1:00 PM EDT Clinical Support [facility] MEDICINE [address] [place] [address] Corrie Chen, RN documented as of this encounter Visit Diagnoses Diagnosis Insomnia, unspecified type Rhinorrhea Other diseases of nasal cavity and sinuses documented in this encounter Additional Health Concerns Assessment Noted Time PHQ-9 Depression Total Score: 12 024 2:16 PM EDT documented as of this encounter Care Teams Aviation Survival Technician Relationship Specialty Start Date End Date Name, MD Rock [address] [place] [address] PCP - General Family Medicine 07/04/15 documented as of this encounter
--- OUTSIDE RECORDS SUMMARY | 2024-05-22 18:45 | XMS_ITS | Encounter Summary ---
Author Organization [facility] Address [address] [place] [address] Care Team Providers Care Document Control Assistant Name Role Phone Name, Rock DE PAZ Primary Care Provider Unavailabl e Encounter Details Date Type Department Care Team Description 07/19/2015 Release of Information Medical Records [address] [place] [address] Abstract, Provider Social History Tobacco Use Types Packs/Day Years [...] on filedocumented in this encounter Care Teams Document Control Assistant Relationship Specialty Start Date End Date Name, MD Rock PCP - General Internal Medicine 07/18/15 documented as of this encounter
--- OUTSIDE RECORDS SUMMARY | 2024-05-22 18:45 | XMS_ITS | Encounter Summary ---
Author Organization [facility] Address [address] [place] [address] Care Team Providers Care Bight Maker Name Role Phone Name, Rock DE PAZ Primary Care Provider Unavailabl e Deepali Santana MD Primary Care Provider Name, Rock DE PAZ Primary Care Provider Unavailabl e Reason for Visit * Reason Onset Date Comments Special Procedure 11/02/2011 Colon Encounter Details Date Type Department Care Team Description 11/02/2011 Telephone Adult [address] [address] Name, MD Rock Special Procedure (Colon) Social History Tobacco Use Types Packs/Day Years Used Date Smoking Tobacco: Former Cigarettes Q uit: 04/26/2004 Smokeless Tobacco: Former Comments:quit 2004 Alcohol Use Standard Drinks/Week Comments Yes 0 (1 standard drink = 0.6 oz pur e alcohol) socially Sex Assigned at Date Recorded Not on file documented as of this encounter Miscellaneous Notes * Telephone Encounter - Kendra Da Silva - 11/02/2011 2:36 PM EDT 2 calls and 1 letter have been made in an effort to schedule screening colonoscopy with no response. GI department will take no further action on this referral. Referral 11/04/10 due to Left message 11/06/10 Booked 12/09/10, cancelled by patient Rebooked 01/23/11, cancelled by patient Left message 06/29/11 Sent letter 07/20/11 Left message 08/10/11 documented in this encounter Plan of Treatment Not on file documented as of this encounter Visit Diagnoses Not on filedocumented in this encounter Care Teams Bight Maker Relationship Specialty Start Date End Date Name, MD Rock PCP - General 10/10/10 05/20/15 Deepali Santana MD [address] [place] [address] PCP - General Internal Medicine 05/21/15 07/17/15 Name, MD Rock [address] [place] [address] PCP - General Internal Medicine 07/18/15 documented as of this encounter
--- OUTSIDE RECORDS SUMMARY | 2024-05-22 18:45 | XMS_ITS | Encounter Summary ---
Author Organization [employer] Address [address] [place] [address] Care Team Providers Care Dairy Science Teacher Name Role Phone Name, Rock DE PAZ Primary Care Provider [phone] Reason for Visit * Reason Comments Med Refill Encounter Details Date Type Department Care Team ([facility] st Contact Info) Description 03/04/2023 Refill [facility] MEDICINE [address] [place] [address] Christine Doe, QUENTIN [address] [place] [address] Dept [place] [address] Social History Tobacco Use Types Packs/Day Years [...] Support [facility] MED[facility]INE [address] [place] [address] Corrie Chen RN documented as of this encounter Visit Diagnoses Not on filedocumented in this encounter Additional Health Concerns Assessment Noted Time PHQ-9 Depression Total Score: 21 023 10:14 AM EDT documented as of this encounter Care Teams Dairy Science Teacher Relationship Specialty Start Date End Date Name, MD Rock [address] [place] [address] PCP - General Family Medicine 07/04/15 documented as of this encounter
--- OUTSIDE RECORDS SUMMARY | 2024-05-22 18:45 | XMS_ITS | Encounter Summary ---
Author Organization [facility] Address [address] [place] [address] Care Team Providers Care Oil Dispenser Name Role Phone Name, Rock DE PAZ Primary Care Provider Unavailabl e Deepali Santana MD Primary Care Provider [phone] Name, Rock DE PAZ Primary Care Provider Unavailabl e Encounter Details Date Type Department Care Team Description 06/10/2012 Mark Up Designer Report Medical Records [address] [place] [address] Rafael Burns PA-C Social History Tobacco Use Types Packs/Day Years [...] on filedocumented in this encounter Care Teams Oil Dispenser Relationship Specialty Start Date End Date Rock Rodrigues MD PCP - General 10/10/10 05/20/15 Deepali Santana MD [address] [place] [address] PCP - General Internal Medicine 05/21/15 07/17/15 Rock Rodrigues MD [address] [place] [address] PCP - General Internal Medicine 07/18/15 documented as of this encounter
--- OUTSIDE RECORDS SUMMARY | 2024-05-22 18:45 | XMS_ITS | Encounter Summary ---
Author Organization [facility] Address [address] [place] [address] Care Team Providers Care Fisher Trawl Net Name Role Phone NameRock MD Primary Care Provider Unavailabl e Deepali Santana MD Primary Care Provider [phone] Name, Rock DE PAZ Primary Care Provider Unavailabl e Encounter Details Date Type Department Care Team Description 09/04/2011 Manager Assessment Report Medical Records [address] [place] [address] Akshat Gallagher Social History Tobacco Use Types [...] on filedocumented in this encounter Care Teams Fisher Trawl Net Relationship Specialty Start Date End Date Rock Rodrigues MD PCP - General 10/10/10 05/20/15 Deepali Santana MD [address] [place] [address] PCP - General Internal Medicine 05/21/15 07/17/15 Rock Rodrigues MD [address] [place] [address] PCP - General Internal Medicine 07/18/15 documented as of this encounter
--- OUTSIDE RECORDS SUMMARY | 2024-05-22 18:45 | XMS_ITS | Encounter Summary ---
Author Organization [employer] Address 75 [facility] 7 [place] [address] Care Team Providers Care Cook Chef Name Role Phone Name, Rock DE PAZ Primary Care Provider [phone] Reason for Visit * Reason Onset Date Comments Med Refill 05/09/2024 Encounter Details Date Type Department Care Team (Late st Contact Info) Description 05/09/2024 Refill [facility] MEDICINE [address] [place], [place] [phone] Name, MD Rock [address] [place], [place] [phone] Rhinorrhea Social History Tobacco Use Types Packs/Day [...] 1:00 PM EDT Clinical Support [facility] MEDICINE [address] [place] [address] Corrie Chen, SCOUT documented as of this encounter Visit Diagnoses Diagnosis Rhinorrhea Other diseases of nasal cavity and sinuses documented in this encounter Additional Health Concerns Assessment Noted Time PHQ-9 Depression Total Score: 12 024 2:16 PM EDT documented as of this encounter Care Teams Cook Chef Relationship Specialty Start Date End Date Name, MD Rock [address] [place] [address] PCP - General Family Medicine 07/04/15 documented as of this encounter
--- OUTSIDE RECORDS SUMMARY | 2024-05-22 18:45 | XMS_ITS | Encounter Summary ---
Author Organization [employer] Address 75 [facility] 7t [place] [address] Care Team Providers Care Air Traffic Control Manager Name Role Phone Name, Rock DE PAZ Primary Care Provider [phone] Encounter Details Date Type Department Care Team [...] 07/17/2024 1:00 PM EDT Clinical Support [facility] MEDICINE [address] [place] [address] Corrie Chen, RN documented as of this encounter Visit Diagnoses Not on filedocumented in this encounter Additional Health Concerns Assessment Noted Time PHQ-9 Depression Total Score: 17 025 2:50 PM EST documented as of this encounter Care Teams Air Traffic Control Manager Relationship Specialty Start Date End Date Name, MD Rock [address] [place] [address] PCP - General Family Medicine 07/04/15 documented as of this encounter
--- OUTSIDE RECORDS SUMMARY | 2024-05-22 18:45 | XMS_ITS | Encounter Summary ---
Author Organization [facility] Address [address] [place] [address] Care Team Providers Care Cyber Reverse Engineer Name Role Phone Name, Rock DE PAZ Primary Care Provider Unavailabl e Encounter Details Date Type Department Care Team Description 03/27/2016 Release of Information Medical Records [address] [place] [address] Abstract, Provider Social History Tobacco Use Types [...] on filedocumented in this encounter Care Teams Cyber Reverse Engineer Relationship Specialty Start Date End Date Name, MD Rock PCP - General Internal Medicine 07/18/15 documented as of this encounter
--- OUTSIDE RECORDS SUMMARY | 2024-05-22 18:45 | XMS_ITS | Encounter Summary ---
Author Organization [employer] Address 75 [facility] 7t [place] [address] Care Team Providers Care Circulation Representative Name Role Phone Name, Rock DE PAZ Primary Care Provider [phone] Reason for Visit * Reason Comments Med Refill Encounter Details Date Type Department Care Team (Late st Contact Info) Description 04/26/2023 Refill [facility] MEDICINE [address] [place], [place] [phone] Name, MD Rock [address] [place], [place] [phone] Insomnia, unspecified type Social History Tobacco Use [...] Description 07/17/2024 1:00 PM EDT Clinical Support [facility] MEDICINE [address] [place] [phone] Corrie Chen RN documented as of this encounter Visit Diagnoses Diagnosis Insomnia, unspecified type documented in this encounter Additional Health Concerns Assessment Noted Time PHQ-9 Depression Total Score: 21 023 10:14 AM EDT documented as of this encounter Care Teams Circulation Representative Relationship Specialty Start Date End Date Name, MD Rock [address] [place] [address] PCP - General Family Medicine 07/04/15 documented as of this encounter
--- OUTSIDE RECORDS SUMMARY | 2024-05-22 18:45 | XMS_ITS | Encounter Summary ---
Author Organization [employer] Address 75 [facility] 7 [place] [address] Care Team Providers Care Dredge Operator Supervisor Name Role Phone Name, Rock DE PAZ Primary Care Provider [phone] Reason for Visit * Reason Comments Med Refill Encounter Details Date Type Department Care Team (Late st Contact Info) Description 11/20/2022 Refill [facility] MEDICINE [address] [place] [address] Fany Pearson MD 230 [place] [address] Chronic pain syndrome; Insomnia, unspecified type Social [...] Description 07/17/2024 1:00 PM EDT Clinical Support [facility] MEDICINE [address] [place] [address] Corrie Chen RN documented as of this encounter Visit Diagnoses Diagnosis Chronic pain syndrome Insomnia, unspecified type documented in this encounter Additional Health Concerns Assessment Noted Time PHQ-9 Depression Total Score: 21 023 10:14 AM EDT documented as of this encounter Care Teams Dredge Operator Supervisor Relationship Specialty Start Date End Date Name, MD Rock [address] [place] [address] PCP - General Family Medicine 07/04/15 documented as of this encounter
--- OUTSIDE RECORDS SUMMARY | 2024-05-22 18:45 | XMS_ITS | Encounter Summary ---
Author Organization [employer] Address 75 [facility] 7 [place] [address] Care Team Providers Care Chemical Cell Changer Name Role Phone Name, Rock DE PAZ Primary Care Provider [phone] Reason for Visit * Reason Comments Med Refill Encounter Details Date Type Department Care Team ([facility] st Contact Info) Description 05/08/2024 Refill [facility] MEDICINE [address] [place], [place] [phone] Name, MD Rock [address] [place], [place] [phone] Hypophosphatemia; Insomnia, unspecified type Social History Tobacco [...] 1:00 PM EDT Clinical Support [facility] MEDICINE [address] [place] [address] Corrie Chen, SCOUT documented as of this encounter Visit Diagnoses Diagnosis Hypophosphatemia Disorders of phosphorus metabolism Insomnia, unspecified type documented in this encounter Additional Health Concerns Assessment Noted Time PHQ-9 Depression Total Score: 12 024 2:16 PM EDT documented as of this encounter Care Teams Chemical Cell Changer Relationship Specialty Start Date End Date Name, MD Rock [address] [place] [address] PCP - General Family Medicine 07/04/15 documented as of this encounter
--- OUTSIDE RECORDS SUMMARY | 2024-05-22 18:45 | XMS_ITS | Encounter Summary ---
Author Organization [employer] Address 75 [facility] 7 [place] [address] Care Team Providers Care Family Lawyer Name Role Phone Name, Rock DE PAZ Primary Care Provider [phone] Reason for Visit * Reason Onset Date Comments Med Refill 03/02/2024 Encounter Details Date Type Department Care Team (Late st Contact Info) Description 03/02/2024 Refill [facility] MEDICINE [address] [place], [place] [phone] Name, MD Rock [address] [place] [address] Social History Tobacco Use Types Packs/Day Years [...] 07/17/2024 1:00 PM EDT Clinical Support [facility] MEDICINE [address] [place] [address] Corrie Chen, RN documented as of this encounter Visit Diagnoses Not on filedocumented in this encounter Additional Health Concerns Assessment Noted Time PHQ-9 Depression Total Score: 12 024 2:16 PM EDT documented as of this encounter Care Teams Family Lawyer Relationship Specialty Start Date End Date Name, MD Rock [address] [place] [address] PCP - General Family Medicine 07/04/15 documented as of this encounter
--- OUTSIDE RECORDS SUMMARY | 2024-05-22 18:45 | XMS_ITS | Encounter Summary ---
Author Organization [employer] Address 75 [facility] 7 [place] [address] Care Team Providers Care Powerhouse Mechanic Helper Name Role Phone Name, Rock DE PAZ Primary Care Provider [phone] Reason for Visit * Reason Onset Date Comments Appointment Request 11/02/2022 Encounter Details Date Type Department Care Team ([facility] st Contact Info) Description 11/02/2022 Telephone [facility] MEDICINE [address] [place] [address] [phone] Name, MD Rock [address] [place], [place] [phone] Appointment Request Social History Tobacco Use Types [...] denied any urgent concerns. Please contact at [phone] documented in this encounter Plan of Treatment Upcoming Encounters Date Type Department Care Team (Late st Contact Info) Description 07/17/2024 1:00 PM EDT Clinical Support [facility] MEDICINE [address] [place] [address] Corrie Chen RN documented as of this encounter Visit Diagnoses Not on filedocumented in this encounter Care Teams Powerhouse Mechanic Helper Relationship Specialty Start Date End Date Name, MD Rock [address] [place] [address] PCP - General Family Medicine 07/04/15 documented as of this encounter
--- OUTSIDE RECORDS SUMMARY | 2024-05-22 18:45 | XMS_ITS | Encounter Summary ---
Author Organization [employer] Address 75 [facility] 7t [place] [address] Care Team Providers Care Knapsack Sprayer Name Role Phone Name, Rock DE PAZ Primary Care Provider [phone] Encounter Details Date Type Department Care Team ([facility] st Contact Info) Description 05/20/2023 Telephone [facility] MEDICINE [address] [place], [place] [phone] Name, MD Rock [address] [place] [address] Social History Tobacco Use Types Packs/Day Years [...] Description 07/17/2024 1:00 PM EDT Clinical Support [facility] MEDICINE [address] [place] [address] Corrie Chen, RN documented as of this encounter Visit Diagnoses Not on filedocumented in this encounter Additional Health Concerns Assessment Noted Time PHQ-9 Depression Total Score: 21 023 10:14 AM EDT documented as of this encounter Care Teams Knapsack Sprayer Relationship Specialty Start Date End Date Name, MD Rock [address] [place] [address] PCP - General Family Medicine 07/04/15 documented as of this encounter
--- OUTSIDE RECORDS SUMMARY | 2024-05-22 18:45 | XMS_ITS | Encounter Summary ---
Author Organization [facility] Address [address] [place] [address] Care Team Providers Care Steel Rule Die Maker Name Role Phone Name, Rock DE PAZ Primary Care Provider Unavailabl e Deepali Santana MD Primary Care Provider [phone] Name, Rock DE PAZ Primary Care Provider Unavailabl e Encounter Details Date Type Department Care Team Description 07/02/2011 Hospital Medical Records [address] [place] [address] Cynthia Day MD Social History Tobacco Use Types Packs/Day [...] on filedocumented in this encounter Care Teams Steel Rule Die Maker Relationship Specialty Start Date End Date Rock Rodrigues MD PCP - General 10/10/10 05/20/15 Deepali Santana MD [address] [place] [address] PCP - General Internal Medicine 05/21/15 07/17/15 Rock Rodrigues MD [address] [place] [address] PCP - General Internal Medicine 07/18/15 documented as of this encounter
--- OUTSIDE RECORDS SUMMARY | 2024-05-22 18:45 | XMS_ITS | Encounter Summary ---
Author Organization [employer] Address 75 [facility] 7 [place] [address] Care Team Providers Care Em Physician Name Role Phone Name, Rock DE PAZ Primary Care Provider [phone] Reason for Visit * Reason Onset Date Comments Nurse Triage 04/27/2023 Encounter Details Date Type Department Care Team (Late st Contact Info) Description 04/27/[address] [facility] MEDICINE [address] [place] [address] [phone] Name, MD Rock [address] [place], [place] [phone] Nurse Triage Social History Tobacco Use Types [...] liquids. Pt is advised to come to [facility] today to be seen but, Pt reports a bad headache and doesn't want to drive. Pt is advised to come to [facility] in the morning and Pt agrees with [...] caller accepted this outcome Please contact at [phone] documented in this encounter Plan of Treatment Upcoming Encounters Date Type Department Care Team (Late st Contact Info) Description 07/17/2024 1:00 PM EDT Clinical Support [facility] MEDICINE [address] [place] [address] Corrie Chen RN documented as of this encounter Visit Diagnoses Not on filedocumented in this encounter Additional Health Concerns Assessment Noted Time PHQ-9 Depression Total Score: 21 023 10:14 AM EDT documented as of this encounter Care Teams Em Physician Relationship Specialty Start Date End Date Name, MD Rock [address] [place] [address] PCP - General Family Medicine 07/04/15 documented as of this encounter
--- OUTSIDE RECORDS SUMMARY | 2024-05-22 18:45 | XMS_ITS | Encounter Summary ---
Author Organization [employer] Address 75 [facility] 7 [place] [address] Care Team Providers Care Nurse Informatics Educator Name Role Phone Name, Rock DE PAZ Primary Care Provider [phone] Reason for Visit * Reason Onset Date Comments Medication Question 05/31/2023 Encounter Details Date Type Department Care Team ([facility] st Contact Info) Description 05/31/2023 Telephone [facility] MEDICINE [address] [place] [address] [phone] Name, MD Rock [address] [place], [place] [phone] Medication Question Social History Tobacco Use Types [...] a week . pt. Advised to call [facility] because medication was prescribe by Peer Tutor. 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 PCP is managing kidney related function and low phosphorus so want to discuss about these medication. Pt. Advised that message will be sent to PCP for review. Please review and advise. Tc from pt requesting to speak with provider in regards to two medications that are being offered by the Peer Tutor which are Pimwall which has to be injected every single day and Levaradi which is once a week . Pt would like to discuss this with PCP or nurse to verify if it's okay and which medication should she go for due to her medical History. Please contact pt @ [phone] * Telephone Encounter - Esperanza Bravo - 05/31/2023 2:02 PM EST Tc from pt requesting to speak with provider in regards to two medications that are being offered by the Peer Tutor which are Pimwall which has to be injected every single day and Levaradi whichis once a week . Pt would like to discuss this with PCP or nurse to verify if it's okay and which medication should she go for due to her medical History. Please contact pt @ [phone] documented in this encounter Plan of Treatment Upcoming Encounters Date Type Department Care Team ([facility] st Contact Info) Description 07/17/2024 1:00 PM EDT Clinical Support [facility] MEDICINE [address] [place] [address] Corrie Chen, SCOUT documented as of this encounter Visit Diagnoses Not on filedocumented in this encounter Additional Health Concerns Assessment Noted Time PHQ-9 Depression Total Score: 21 11/20/ 023 10:14 AM EDT documented as of this encounter Care Teams Nurse Informatics Educator Relationship Specialty Start Date End Date Name, MD Rock [address] [place] [address] PCP - General Family Medicine 07/04/15 documented as of this encounter
--- OUTSIDE RECORDS SUMMARY | 2024-05-22 18:45 | XMS_ITS | Encounter Summary ---
Author Organization [employer] Address 75 [facility] 7 [place] [address] Care Team Providers Care Swift Tender Name Role Phone Name, Rock DE PAZ Primary Care Provider [phone] Reason for Visit * Reason Comments Med Refill Encounter Details Date Type Department Care Team (Late st Contact Info) Description 11/23/[address] [facility] MEDICINE [address] [place] [address] Fany Pearson MD [address] [place] [address] Chronic pain syndrome; Insomnia, unspecified type Social [...] EDT Clinical Support [facility] MEDICINE [address] [place] [address] Corrie Chen RN documented as of this encounter Visit Diagnoses Diagnosis Chronic pain syndrome Insomnia, unspecified type documented in this encounter Additional Health Concerns Assessment Noted Time PHQ-9 Depression Total Score: 21 023 10:14 AM EDT documented as of this encounter Care Teams Swift Tender Relationship Specialty Start Date End Date Name, MD Rock [address] [place] [address] PCP - General Family Medicine 07/04/15 documented as of this encounter
--- OUTSIDE RECORDS SUMMARY | 2024-05-22 18:45 | XMS_ITS | Encounter Summary ---
Author Organization Formerly [facility] Address [address] [place] [address] Care Team Providers Care Coil Former Name Role Phone NameRock MD Primary Care Provider Unavailabl e Deepali Santana MD Primary Care Provider [phone] Name, Rock DE PAZ Primary Care Provider Unavailabl e Encounter Details Date Type Department Care Team Description 01/26/2012 Head Teller Report Medical Records [address] [place] [address] Akshat Gallagher Social History Tobacco Use Types [...] on filedocumented in this encounter Care Teams Coil Former Relationship Specialty Start Date End Date Rock Rodrigues MD PCP - General 10/10/10 05/20/15 Deepali Santana MD [address] [place] [address] PCP - General Internal Medicine 05/21/15 07/17/15 Rock Rodrigues MD [address] [place] [address] PCP - General Internal Medicine 07/18/15 documented as of this encounter
--- OUTSIDE RECORDS SUMMARY | 2024-05-22 18:45 | XMS_ITS | Encounter Summary ---
Author Organization [employer] Address 75 [facility] 7 [place] [address] Care Team Providers Care Receipt And Report Clerk Name Role Phone Name, Rock DE PAZ Primary Care Provider [phone] Reason for Visit * Reason Comments Med Refill Encounter Details Date Type Department Care Team (Late st Contact Info) Description 11/26/2022 Refill [facility] MEDICINE [address] [place], [place] [phone] Name, MD Rock [address] [place] [address] Chronic pain syndrome Social History Tobacco Use [...] Description 07/17/2024 1:00 PM EDT Clinical Support [facility] MEDICINE [address] [place] [address] Corrie Chen, RN documented as of this encounter Visit Diagnoses Diagnosis Chronic pain syndrome documented in this encounter Additional Health Concerns Assessment Noted Time PHQ-9 Depression Total Score: 21 11/20/ 023 10:14 AM EDT documented as of this encounter Care Teams Receipt And Report Clerk Relationship Specialty Start Date End Date Name, MD Rock [address] [place] [address] PCP - General Family Medicine 07/04/15 documented as of this encounter
--- OUTSIDE RECORDS SUMMARY | 2024-05-22 18:45 | XMS_ITS | Encounter Summary ---
Author Organization [email or web address] Address 75 [facility] 7 [place] [address] Care Team Providers Care Clinical Project Coordinator Name Role Phone Name, Rock DE PAZ Primary Care Provider [phone] Reason for Visit * Reason Onset Date Comments Med Refill 05/08/2024 Encounter Details Date Type Department Care Team ([facility] st Contact Info) Description 05/08/2024 Refill [facility] MED & PEDS [address] [place] [address] Name, MD Rock [address] [place] [address] Rhinorrhea Social History Tobacco Use Types Packs/Day [...] Clinical Support [facility] MEDICINE [address] [place] [address] Corrie Chen, SCOUT documented as of this encounter Visit Diagnoses Diagnosis Rhinorrhea Other diseases of nasal cavity and sinuses documented in this encounter Additional Health Concerns Assessment Noted Time PHQ-9 Depression Total Score: 12 024 2:16 PM EDT documented as of this encounter Care Teams Clinical Project Coordinator Relationship Specialty Start Date End Date Name, MD Rock [address] [place] [address] PCP - General Family Medicine 07/04/15 documented as of this encounter
--- OUTSIDE RECORDS SUMMARY | 2024-05-22 18:45 | XMS_ITS | Encounter Summary ---
Author Organization [employer] Address [address] [facility] 7 [place] [address] Care Team Providers Care Head Banquet Waiter/Waitress Name Role Phone Name, Rock DE PAZ Primary Care Provider [phone] Reason for Visit * Reason Onset Date Comments Med Refill 03/02/2024 Encounter Details Date Type Department Care Team (Late st Contact Info) Description 03/02/2024 Refill [facility] [address] [place], [place] [phone] Name, MD Rock [address] [place] [address] Chronic pain syndrome Social History Tobacco Use [...] Description 07/17/2024 1:00 PM EDT Clinical Support [facility] [address] [place] [address] Corrie Chen, SCOUT documented as of this encounter Visit Diagnoses Diagnosis Chronic pain syndrome documented in this encounter Additional Health Concerns Assessment Noted Time PHQ-9 Depression Total Score: 12 024 2:16 PM EDT documented as of this encounter Care Teams Head Banquet Waiter/Waitress Relationship Specialty Start Date End Date Name, MD Rock [address] [place] [address] PCP - General Family Medicine 07/04/15 documented as of this encounter
--- OUTSIDE RECORDS SUMMARY | 2024-05-22 18:45 | XMS_ITS | Encounter Summary ---
Author Organization [facility] Address [address] [place] [address] Care Team Providers Care Braiding Machine Operator Name Role Phone Name, Rock DE PAZ Primary Care Provider Unavailabl e Deepali Santana MD Primary Care Provider [phone] Name, Rock DE PAZ Primary Care Provider Unavailabl e Encounter Details Date Type Department Care Team Description 07/08/2011 Hospital Medical Records [address] [place] [address] Cynthia Day MD Social History Tobacco Use [...] on filedocumented in this encounter Care Teams Braiding Machine Operator Relationship Specialty Start Date End Date Rock Rodrigues MD PCP - General 10/10/10 05/20/15 Deepali Santana MD [address] [place] [address] PCP - General Internal Medicine 05/21/15 07/17/15 Rock Rodrigues MD [address] [place] [address] PCP - General Internal Medicine 07/18/15 documented as of this encounter
--- OUTSIDE RECORDS SUMMARY | 2024-05-22 18:45 | XMS_ITS | Encounter Summary ---
Author Organization [employer] Address 75 [facility] 7 [place] [address] Care Team Providers Care Social Media Senior Associate Name Role Phone Name, Rock DE PAZ Primary Care Provider [phone] Reason for Visit * Reason Comments Med Refill Encounter Details Date Type Department Care Team (Late st Contact Info) Description 11/18/2022 Refill [facility] MEDICINE [address] [place], [place] [phone] Name, MD Rock [address] [place] [address] Chronic pain syndrome Social History Tobacco Use [...] Description 07/17/2024 1:00 PM EDT Clinical Support [facility] MEDICINE [address] [place] [address] Corrie Chen, RN documented as of this encounter Visit Diagnoses Diagnosis Chronic pain syndrome documented in this encounter Care Teams Social Media Senior Associate Relationship Specialty Start Date End Date Name, MD Rock [address] [place] [address] PCP - General Family Medicine 07/04/15 documented as of this encounter
--- OUTSIDE RECORDS SUMMARY | 2024-05-22 18:45 | XMS_ITS | Encounter Summary ---
Author Organization [facility] Address [address] [place] [address] Care Team Providers Care Tank Truck Loader Name Role Phone NameRock MD Primary Care Provider Unavailabl e Deepali Santana MD Primary Care Provider [phone] Name, Rock DE PAZ Primary Care Provider Unavailabl e Encounter Details Date Type Department Care Team Description 07/16/2011 Bioprocessing Manufacturing Technician Report Medical Records [address] [place] [address] Akshat Gallagher Social History Tobacco Use Types [...] on filedocumented in this encounter Care Teams Tank Truck Loader Relationship Specialty Start Date End Date Rock Rodrigues MD PCP - General 10/10/10 05/20/15 Deepali Santana MD [address] [place] [address] PCP - General Internal Medicine 05/21/15 07/17/15 Rock Rodrigues MD [address] [place] [address] PCP - General Internal Medicine 07/18/15 documented as of this encounter
--- OUTSIDE RECORDS SUMMARY | 2024-05-22 18:45 | XMS_ITS | Encounter Summary ---
Author Organization [facility] Address [address] [place] [address] Care Team Providers Care Polisher Hand Name Role Phone Name, Rock DE PAZ Primary Care Provider Unavailabl e Deepali Santana MD Primary Care Provider [phone] Name, Rock DE PAZ Primary Care Provider Unavailabl e Encounter Details Date Type Department Care Team Description 09/08/2011 Hospital Medical Records [address] [place] [address] Saira Avitia Social History Tobacco Use Types Packs/Day Years [...] on filedocumented in this encounter Care Teams Polisher Hand Relationship Specialty Start Date End Date Rock Rodrigues MD PCP - General 10/10/10 05/20/15 Deepali Santana MD [address] [place] [address] PCP - General Internal Medicine 05/21/15 07/17/15 Rock Rodrigues MD [address] [place] [address] PCP - General Internal Medicine 07/18/15 documented as of this encounter
--- OUTSIDE RECORDS SUMMARY | 2024-05-22 18:45 | XMS_ITS | Encounter Summary ---
Author Organization [employer] Address 75 [facility] 7 [place] [address] Care Team Providers Care Net Software Developer Name Role Phone Name, Rock DE PAZ Primary Care Provider [phone] Reason for Visit * Reason Onset Date Comments Med Refill 02/09/2024 Encounter Details Date Type Department Care Team (Late st Contact Info) Description 02/09/2024 Refill [facility] MEDICINE [address] [place], [place] [phone] Name, MD Rock [address] [place], [place] [phone] Chronic pain syndrome Social History Tobacco Use [...] Description 07/17/2024 1:00 PM EDT Clinical Support [facility] MEDICINE [address] [place] [address] Corrie Chen, SCOUT documented as of this encounter Visit Diagnoses Diagnosis Chronic pain syndrome documented in this encounter Additional Health Concerns Assessment Noted Time PHQ-9 Depression Total Score: 12 024 2:16 PM EDT documented as of this encounter Care Teams Net Software Developer Relationship Specialty Start Date End Date Name, MD Rock [address] [place] [address] PCP - General Family Medicine 07/04/15 documented as of this encounter
--- OUTSIDE RECORDS SUMMARY | 2024-05-22 18:45 | XMS_ITS | Encounter Summary ---
Author Organization [employer] Address 75 [facility] 7 [place] [address] Care Team Providers Care Territory Manager Name Role Phone Name, Rokc DE PAZ Primary Care Provider [phone] Reason for Visit * Reason Onset Date Comments Med Refill 02/09/2024 Encounter Details Date Type Department Care Team (Late st Contact Info) Description 02/09/2024 Refill [facility] MEDICINE [address] [place], [place] [phone] Name, MD Rock [address] [place], [place] [phone] Insomnia, unspecified type Social History Tobacco Use [...] Description 07/17/2024 1:00 PM EDT Clinical Support [facility] MEDICINE [address] [place] [address] Corrie Chen, SCOUT documented as of this encounter Visit Diagnoses Diagnosis Insomnia, unspecified type documented in this encounter Additional Health Concerns Assessment Noted Time PHQ-9 Depression Total Score: 12 024 2:16 PM EDT documented as of this encounter Care Teams Territory Manager Relationship Specialty Start Date End Date Name, MD Rock [address] [place] [address] PCP - General Family Medicine 07/04/15 documented as of this encounter
--- OUTSIDE RECORDS SUMMARY | 2024-05-22 18:45 | XMS_ITS | Encounter Summary ---
Author Organization [employer] Address 75 [facility] 7 [place] [address] Care Team Providers Care Claims Director Name Role Phone Name, Rock DE PAZ Primary Care Provider [phone] Reason for Visit * Reason Onset Date Comments Med Refill 02/09/2024 Encounter Details Date Type Department Care Team (Late st Contact Info) Description 02/09/2024 Refill [facility] MEDICINE [address] [place], [place] [phone] Name, MD Rock [address] [place], [place] [phone] Chronic pain syndrome; Insomnia, unspecified type Social [...] Support [facility] MEDICINE [address] [place] [address] Corrie Chen, RN documented as of this encounter Visit Diagnoses Diagnosis Chronic pain syndrome Insomnia, unspecified type documented in this encounter Additional Health Concerns Assessment Noted Time PHQ-9 Depression Total Score: 12 024 2:16 PM EDT documented as of this encounter Care Teams Claims Director Relationship Specialty Start Date End Date Name, MD Rock [address] [place] [address] PCP - General Family Medicine 07/04/15 documented as of this encounter
--- OUTSIDE RECORDS SUMMARY | 2024-05-22 18:45 | XMS_ITS | Encounter Summary ---
Author Organization [email or web address] Address 75 [facility] 7 [place] [address] Care Team Providers Care Business Continuity Strategy Director Name Role Phone Name, oRck DE PAZ Primary Care Provider [phone] Reason for Visit * Reason Onset Date Comments Med Refill 02/09/2024 Encounter Details Date Type Department Care Team (Late st Contact Info) Description 02/09/2024 Refill [facility] MEDICINE [address] [place], [place] [phone] Name, MD Rock [address] [place] [address] Social History Tobacco Use Types Packs/Day Years [...] 07/17/2024 1:00 PM EDT Clinical Support [facility] MEDICINE [address] [place] [address] Corrie Chen, RN documented as of this encounter Visit Diagnoses Not on filedocumented in this encounter Additional Health Concerns Assessment Noted Time PHQ-9 Depression Total Score: 12 024 2:16 PM EDT documented as of this encounter Care Teams Business Continuity Strategy Director Relationship Specialty Start Date End Date Name, MD Rock [address] [place] [address] PCP - General Family Medicine 07/04/15 documented as of this encounter
--- OUTSIDE RECORDS SUMMARY | 2024-05-22 18:45 | XMS_ITS | Encounter Summary ---
Author Organization [employer] Address 75 [facility] 7 [place] [address] Care Team Providers Care Tower Hoist Operator Name Role Phone Name, Rock DE PAZ Primary Care Provider [phone] Reason for Visit * Reason Onset Date Comments Med Refill 03/10/2024 Encounter Details Date Type Department Care Team (Late st Contact Info) Description 03/10/2024 Refill [facility] [address] [place], [place] [phone] Name, MD Rock [address] [place], [place] [phone] Insomnia, unspecified type Social History Tobacco Use [...] 1:00 PM EDT Clinical Support [facility] [address] [place] [address] Corrie Chen, SCOUT documented as of this encounter Visit Diagnoses Diagnosis Insomnia, unspecified type documented in this encounter Additional Health Concerns Assessment Noted Time PHQ-9 Depression Total Score: 12 024 2:16 PM EDT documented as of this encounter Care Teams Tower Hoist Operator Relationship Specialty Start Date End Date Name, MD Rock [address] [place] [address] PCP - General Family Medicine 07/04/15 documented as of this encounter
--- OUTSIDE RECORDS SUMMARY | 2024-05-22 18:45 | XMS_ITS | Encounter Summary ---
Author Organization [employer] Address 75 [facility] 7 [place] [address] Care Team Providers Care Family Medicine Physician Assistant Name Role Phone Name, Rock DE PAZ Primary Care Provider [phone] Reason for Visit * Reason Onset Date Comments Med Refill 01/31/2024 Encounter Details Date Type Department Care Team ([facility] st Contact Info) Description 01/31/2024 Refill [facility] MED & PEDS [address] [place] [address] Juhi Diaz, ASSOCIATE [employer] [address] [place] [address] Chronic pain syndrome; Insomnia, unspecified type Social [...] Description 07/17/2024 1:00 PM EDT Clinical Support [facility] MEDICINE [address] [place] [address] Corrie Chen, SCOUT documented as of this encounter Visit Diagnoses Diagnosis Chronic pain syndrome Insomnia, unspecified type documented in this encounter Additional Health Concerns Assessment Noted Time PHQ-9 Depression Total Score: 12 024 2:16 PM EDT documented as of this encounter Care Teams Family Medicine Physician Assistant Relationship Specialty Start Date End Date Name, MD Rock [address] [place] [address] PCP - General Family Medicine 07/04/15 documented as of this encounter
--- OUTSIDE RECORDS SUMMARY | 2024-05-22 18:45 | XMS_ITS | Encounter Summary ---
Author Organization [employer] Address 75 [facility] 7 [place] [address] Care Team Providers Care Professional Skateboarder Name Role Phone Name, Rock DE PAZ Primary Care Provider [phone] Reason for Visit * Reason Comments Cough Encounter Details Date Type Department Care Team ([facility] st Contact Info) Description 05/17/2024 2:00 PM EST Office Visit [facility] MEDICINE [address] [place] [phone] Name, MD Rock [address] [place], [place] [phone] Cough, unspecified type (Primary Dx); Wheezing; History [...] HCTZ daily. She denies the use of vqih-dja-tkjlzba decongestant. She does not check her blood [...] Negative, Indeterminate Negative QC Media Lot # [id number] Rapid COVID Ag Negative Assessment/Plan Diagnoses and [...] She is due to recheck BMP at [facility] next week. Other orders - hydroCHLOROthiazide (HYDRODiuril) [...] Description 07/17/2024 1:00 PM EDT Clinical Support [address] [address] Corrie Chen RN documented as of this [...] COVID Ag Negative QC Media Lot # [id number] Lot# Expiration Date Swab 05/17/2024 3:33 PM EST Rock Rodrigues MD POINT OF CARE TEST ENTER/EDIT OR DERABLES Final Result * POCT Rapid Influenza B OSOM (05/17/2024 3:32 PM EST) Pathologist [facility] Rapid Influenza B Ag Negative Negative, Indeterminate QC Media Lot # [id number] Lot# Expiration Date Swab 05/17/2024 3:32 PM EST Rock Rodrigues MD POINT OF CARE TEST ENTER/EDIT OR DERABLES Final Result * POCT Rapid Influenza A OSOM (05/17/2024 3:32 PM EST) [facility] Rapid Influenza A Ag Negative Negative, Indeterminate QC Media Lot # [id number] Lot# Expiration Date Swab Nasopharyngeal structure / [...] documented as of this encounter Care Teams Professional Skateboarder Relationship Specialty Start Date End Date Name, MD Rcok [address] [place] [address] PCP - General Family Medicine 07/04/15 documented as of this encounter
--- OUTSIDE RECORDS SUMMARY | 2024-05-22 18:45 | XMS_ITS | Encounter Summary ---
Author Organization [employer] Address 75 [facility] 7 [place] [address] Care Team Providers Care Women'S Garment Fitter Name Role Phone Name, Rock DE PAZ Primary Care Provider [phone] Reason for Visit * Reason Onset Date Comments Med Refill 05/08/2024 Encounter Details Date Type Department Care Team (Late st Contact Info) Description 05/08/2024 Refill [facility] MEDICINE [address] [place], [place] [phone] Name, MD Rock [address] [place], [place] [phone] Chronic pain syndrome; Insomnia, unspecified type Social [...] Description 07/17/2024 1:00 PM EDT Clinical Support [facility] MEDICINE [address] [place] [address] Corrie Chen, RN documented as of this encounter Visit Diagnoses Diagnosis Chronic pain syndrome Insomnia, unspecified type documented in this encounter Additional Health Concerns Assessment Noted Time PHQ-9 Depression Total Score: 12 024 2:16 PM EDT documented as of this encounter Care Teams Women'S Garment Fitter Relationship Specialty Start Date End Date Name, MD Rock [address] [place] [address] PCP - General Family Medicine 07/04/15 documented as of this encounter
[2024-05-23 09:58] LABS: Thyroglobulin <0.1 ng/mL; Thyroglobulin Antibodies <1 IU/mL (< or = 1)
[2024-05-25 04:59] LABS: Thyroglobulin Antibody <1 IU/mL (<=1); Thyroglobulin Level <0.1 ng/mL
== END 2024-05-22 14:12 | disposition home or self-care (01) ==
LOC: HO.LAB 14:11
PROVIDERS: Absent Provider Student in an Organized Health Care Education/Training Program; PCP Internal Medicine Geriatric Medicine; Visit Provider Internal Medicine Endocrinology, Diabetes & Metabolism
DX: M81.0 Age-related osteoporosis without current pathological fracture (principal); Z85.850 Personal history of malignant neoplasm of thyroid; E03.9 Hypothyroidism, unspecified
CPT/HCPCS: 36415; 80048; 82040; 84432; 84439; 84443; 86800

== ENCOUNTER 2024-05-26 12:57 | Outpatient (RCR) | payer MEDICARE, MEDICAID, SELFPAY ==
[2024-05-26 12:58] VITALS: BP 104/64; PULSE 54; RESP 16; TEMP 36.1; O2SAT 97
[2024-05-26] MEDS: Zoledronic Acid/Mannitol-Water 5 MG/100 ML PGGYBK.BTL IV (13:11)
[2024-05-26] MEDS: Acetaminophen 325 MG TABLET 650 MG PO (13:11)
== END 2024-06-06 11:04 | disposition home or self-care (01) ==
LOC: HO.INF 12:57
PROVIDERS: Visit Provider Internal Medicine Endocrinology, Diabetes & Metabolism
DX: M81.0 Age-related osteoporosis without current pathological fracture (principal)
CPT/HCPCS: 96374; J3489

== ENCOUNTER 2024-06-12 14:39 | Outpatient (REF) | payer MEDICARE, MEDICAID, SELFPAY ==
--- NOTE | ~2024-06-12 | US_ITS ---
CLINICAL HISTORY: Z85.850 - Personal history of malignant neoplasm of thyroid Soft tissue neck ultrasound Comparison: None provided. There is reportedly a prior ultrasound from 2020. An addendum can be provided if the images and/or report is submitted for review. Findings: Grayscale and color Doppler images were obtained with a high-frequency linear transducer of the thyroidectomy bed and cervical lymph nodes. There is abnormality within the thyroidectomy bed. There is a right level IB lymph node measuring 0.4 x 0.3 x 0.3 cm with normal morphology. There is a right level II lymph node measuring 0.9 x 0.5 x 1.2 cm with normal morphology. There is a left level III lymph node measuring 0.6 x 0.3 x 0.6 cm with question of a diminished hilum. This lymph node was seen on prior study, again an addendum can be provided if the prior study is submitted for review. There is left level III lymph node measuring 0.8 x 0.4 x 0.8 cm with normal morphology. Impression: Status post thyroidectomy. No abnormality in the thyroidectomy bed. Normal size left III lymph node with question of a diminished hilum which may indicate abnormal morphology. Follow up as clinically indicated. This document has been electronically signed by: Cleo Sutton MD on 06/13/2024 17:29:32
--- OUTSIDE RECORDS SUMMARY | 2024-06-12 14:41 | XMS_ITS | Encounter Summary ---
Author Organization [facility] Address [address] [place] [address] Care Team Providers Care Sleeper Cutter Name Role Phone Name, Rock DE PAZ Primary Care Provider Unavailabl e Deepali Santana MD Primary Care Provider [phone] Name, Rock DE PAZ Primary Care Provider Unavailabl e Encounter Details Date Type Department Care Team Description 02/21/2014 Hospital Medical Records [address] [place] [address] Silvia Chua, PAShakaC Social History Tobacco Use Types Packs/Day Years [...] on filedocumented in this encounter Care Teams Sleeper Cutter Relationship Specialty Start Date End Date Rock Rodrigues MD PCP - General 10/10/10 05/20/15 Deepali Santana MD [address] [place] [address] PCP - General Internal Medicine 05/21/15 07/17/15 Rock Rodrigues MD [address] [place] [address] PCP - General Internal Medicine 07/18/15 documented as of this encounter
--- OUTSIDE RECORDS SUMMARY | 2024-06-12 14:41 | XMS_ITS | Encounter Summary ---
Author Organization [employer] Address [address] [place] [address] 7 [place] [address] Care Team Providers Care Solder Making Supervisor Name Role Phone Name, Rock DE PAZ Primary Care Provider [phone] Reason for Visit * Reason Comments Med Refill Encounter Details Date Type Department Care Team (Late st Contact Info) Description 04/08/2022 Refill [facility]S [address] [place] [address] Yoni Mccormick MD [address] [place] [address] Social History Tobacco Use Types Packs/Day Years [...] PM EDT Clinical Support [facility] MEDICINE [address] [place] [address] Corrie Chen, RN documented as of this encounter Visit Diagnoses Not on filedocumented in this encounter Care Teams Solder Making Supervisor Relationship Specialty Start Date End Date Name, MD Rock [address] [place] [address] PCP - General Family Medicine 07/04/15 documented as of this encounter
--- OUTSIDE RECORDS SUMMARY | 2024-06-12 14:41 | XMS_ITS | Encounter Summary ---
Author Organization [employer] Address [address] [place] [address] 7 [place] [address] Care Team Providers Care Director Of Food And Nutrition Name Role Phone Name, Rock DE PAZ Primary Care Provider [phone] Encounter Details Date Type Department Care Team (Late Contact Info) Description 04/30/2022 Orders Only [facility] [address] [place] [address] Cheyenne Sánchez LPN Social History Tobacco Use [...] Description 07/17/2024 1:00 PM EDT Clinical Support [facility] [address] [place], [place] [phone] Corrie Chen RN documented as of this [...] N Telopetide (NTx) 50 see note H [facility] Comment:Result Units: nM BCE /mM creatPremenopausal Females: 4 - 64 nM BCE/mM creatResults are primarily used for monitoring theresponse to therapy. A value within thepremenopausal range does not rule out osteoporosisnor the need for therapyUnits of Measure: nM BCE/mM creat CREATININE, RANDOM URINE 114 20 - 275 mg/dL [facility] Comment:THIS TEST WAS PERFOR MED AT:[id number] [place] [address]VBGCGZKCARMELITA WRIGHT MD,PHD 05/04/2022 3:06 PM EST 05/04/2022 3:22 PM EST us [facility] External Provider LAB URI NE ORDERABLES Final Result Performing Organization Address City/[facility]/ZIP Co de Phone Number [facility] [address] [place] [phone] * Protein Electrophoresis and Adeline/Lambda Light Chains (05/04/2022 2:30 PM EST) Prot Elec - Total Protein 7.0 6.1 - 8.1 g/dL [facility] Prot Elec - Albumin 4.2 3.8 - 4.8 g/dL [facility] Prot Elec - Alpha1 0.3 0.2 - 0.3 g/dL [facility] Prot Elec - Alpha2 0.8 0.5 - 0.9 g/dL [facility] Prot Elec - Beta 1 0.6 0.4 - 0.6 g/dL [facility] Prot Elec - Beta 2 0.3 0.2 - 0.5 g/dL [facility] Prot Elec - Gamma 0.8 0.8 - 1.7 g/dL [facility] PES - Abn Protein Band 1 TNP [facility] PES-Abn Protein Band 2 [facility]-Ab[facility] Protein Band 3 [facility] Prot Elec - Interpretation SEE NOTE [facility] Comment:Normal Electrophoret ic PatternTHIS TEST WAS PERFORMED AT:[employer] [address] ([address] [address]AJDTBNANCY ADKINS MD 05/04/2022 2:30 PM EST 05/04/2022 2:33 PM EST [facility] External Provider LAB BLO OD ORDERABLES Final Result Performing Organization Address City/[facility]/ZIP Co de Phone Number [facility] [address] [place] [phone] * Alkaline Phosphatase, Bone Specific (05/04/2022 2:30 PM EST) Alkaline Phosphatase, Bone Specific 11.6 5.6 - 29.0 mcg/L [facility] Comment:Reference Range, Pre menopausal (mcg/L) 35-45 years 5.0-18.2THIS TEST WAS PERFORMED AT:[employer]/[facility] [id number] [place] [address]QVNPTDGCARMELITA WRIGHT MD,PHD 05/04/2022 2:30 PM EST 05/04/2022 2:33 PM EST [facility] External Provider LAB BLO OD ORDERABLES Final Result Performing Organization Address [facility] Co de Phone Number [facility] [address] [place] [phone] * Thyroid Peroxidase And Thyroglobulin Antibodies (05/04/2022 2:30 PM EST) Thyroglobulin Antibodies <1 < or = 1 IU/mL [facility] Comment:THIS TEST WAS PERFOR MED AT:[employer] [address] ([address], [place] [address]MWQGLNANCY ADKINS MD 05/04/2022 2:30 PM EST 05/04/2022 2:33 PM EST [facility] External Provider LAB BLO OD ORDERABLES Final Result Performing Organization Address [facility] de Phone Number [facility] [address] [place] [phone] * (ABNORMAL) Thyroglobulin, LC/MS/MS (05/04/2022 2:30 PM EST) Thyroglobulin, LC/MS/MS <0.1(A) ng/mL [facility] Comment:Reference Range: Int act Thyroid 2.8-40.9 Athyrotic <0.1 Note: Abnormal flagging is based on the reference interval for patients with intact thyroid.This test was performed using the Kristen Coulterchemiluminescent method. Values obtained fromdifferent assay methods cannot be usedinterchangeably. Thyroglobulin levels, regardlessof value, should not be interpreted as absoluteevidence of the presence or absence of disease. Thyroglobulin Comment See Below [facility] Comment:Thyroglobulin antibo dies (TGAB) interfere withthyroglobulin (TG) assays; therefore, TGAB assayshould always be performed in conjunction with aTG assay.For additional information, please refer tohttp://education.Musicmetric/faq/TJL307(This link is being provided for informational/educational purposes only.)THIS TEST WAS PERFORMED AT:[facility] [place] [address] (1)[place] [address]ZXGMHNANCY ADKINS MD 05/04/2022 2:30 PM EST 05/04/2022 2:33 PM EST [facility] External Provider LAB BLO OD ORDERABLES Final Result Performing Organization Address [facility] Co de Phone Number [facility] [address] [place] [phone] * PTH, Intact Without Calcium (05/04/2022 2:30 PM EST) PTHI 73 16 - 77 pg/mL [facility] Comment:Interpretive Guide I ntact PTH Calcium -------Normal Parathyroid Normal NormalHypoparathyroidism Low or Low Normal LowHyperparathyroidism Primary Normal or High High Secondary High Normal or Low Tertiary High HighNon-Parathyroid Hypercalcemia Low or Low Normal High Calcium (PTHI) 8.9 8.6 - 10.4 mg/dL [facility] Comment:THIS TEST WAS PERFOR MED AT:[facility] [place] [address] (1)[place] [address]LDEJYNANCY ADKINS MD 05/04/2022 2:30 PM EST 05/04/2022 2:33 PM EST [facility] External Provider LAB BLO OD ORDERABLES Final Result Performing Organization Address City/[facility]/ZIP Co de Phone Number [facility] [address] [place] [phone] * TSH (05/04/2022 2:30 PM EST) Thyroid Stimulating Hormone 3.46 0.32 - 4.0 uIU/mL [facility] Comment:Note: A sustained TS H level above 2.5 uIU/mL may warrant further investigation. TSH 3rd Generation ([facility]) 05/04/2022 2:30 PM EST 05/04/2022 2:33 PM EST [facility] External Provider LAB BLO OD ORDERABLES Final Result Performing Organization Address [facility] Co de Phone Number [facility] [address] [place] [phone] * T4, Free (05/04/2022 2:30 PM EST) Free T4 (Free Thyroxine) 1.14 0.71 - 1.85 ng/dL [facility] 05/04/2022 2:30 PM EST 05/04/2022 2:33 PM EST [facility] External Provider LAB BLO OD ORDERABLES Final Result Performing Organization Address [facility] Co de Phone Number [facility] [address] [place] [phone] * Vitamin D, 25-Hydroxy, Total, Immunoassay (05/04/2022 2:30 PM EST) Vitamin D 25-OH Total 25.8 >30 ng/mL [facility] Comment:Health Based Referen ce Values*< 20 ng/mL Gvswxzipf29-91 ng/mL Insufficient> 30 ng/mL Sufficient*Elver KRUSE. N [...] 2:30 PM EST 05/04/2022 2:33 PM EST [facility] External Provider LAB BLO OD ORDERABLES Final Result Performing Organization Address [facility]/ZIP Co de Phone Number [facility] [address] [place] [phone] * Phosphate (As Phosphorus) (05/04/2022 2:30 PM EST) Phosphorus 3.0 2.7 - 4.5 mg/dL [facility] 05/04/2022 2:30 PM EST 05/04/2022 2:33 PM EST [facility] External Provider LAB BLO OD ORDERABLES Final Result Performing Organization Address [facility] Co de Phone Number [facility] [address] [place] [phone] * Comprehensive Metabolic Panel (05/04/2022 2:30 PM EST) Sodium 138 135 - 145 mmol/L [facility] Potassium 4.8 3.3 - 5.1 mmol/L [facility] Chloride 106 96 - 108 mmol/L [facility] Carbon Dioxide 24 22 - 29 mmol/L [facility] Anion Gap 13 12 - 20 [facility] Urea Nitrogen (BUN) 15 9 - 16 mg/dL [facility] Creatinine, Serum 0.85 0.5 - 1.4 mg/dL [facility] Estimated Glomerular Filt Rate >60 [facility] Comment:NOTE: For -Am erican individuals, multiply the result by 1.210.Chronic Kidney Disease: Estimated GFR < 60 mL/min/1.42r9Lamczd Kidney Disease: Estimated GFR < 15 mL/min/1.73m2 Glucose 90 60 - 115 mg/dL [facility] Calcium 9.0 8.4 - 10.2 mg/dL [facility] Bilirubin, Total 0.3 0.0 - 1.0 mg/dL [facility] Aspartate Amino Transferase 26 5 - 31 U/L [facility] Alanine Aminotransferase 28 0 - 31 U/L [facility] Total Protein 6.8 6.5 - 8.0 g/dL [facility] Albumin Level 4.2 3.5 - 5.0 g/dL [facility] Alkaline Phosphatase 61 39 - 117 U/L [facility] 05/04/2022 2:30 PM EST 05/04/2022 2:33 PM EST [facility] External Provider LAB BLO OD ORDERABLES Final Result [facility] [address] [place] [phone] documented in this encounter Visit Diagnoses Not on filedocumented in this encounter Care Teams Director Of Food And Nutrition Relationship Specialty Start Date End Date Name, MD Rock [address] [place] [address] PCP - General Family Medicine 07/04/15 documented as of this encounter
--- OUTSIDE RECORDS SUMMARY | 2024-06-12 14:41 | XMS_ITS | Encounter Summary ---
Author Organization [facility] Address [address] [place] [address] Care Team Providers Care Electronic Scale Tester Name Role Phone NameRock MD Primary Care Provider Unavailabl e Reynaldo Nascimenot MD Primary Care Provider Unav ailReynaldo Garcia MD Primary Care Provider Unav ailable Deepali Santana MD Primary Care Provider [phone] Name, Rock DE PAZ Primary Care Provider Unavailabl e Encounter Details Date Type Department Care Team Description 02/10/2010 Night Triage Doc Medical Records [address] [place] [phone] Abstract, Provider Social History Tobacco Use Types Packs/Day Years Used Date Smoking Tobacco: Former Cigarettes Q uit: 04/26/2004 Comments:quit 2004 Alcohol Use Standard Drinks/Week Comments Yes 0 (1 standard drink = 0.6 oz pur e alcohol) socially Sex Assigned at Date Recorded Not on file documented as of this encounter Plan of Treatment Not on file documented as of this encounter Visit Diagnoses Not on filedocumented in this encounter Care Teams Electronic Scale Tester Relationship Specialty Start Date End Date Rock Rodrigues MD PCP - General 10/10/10 05/20/15 Reynaldo Nascimento MD PCP - General 04/09/10 10/09/10 Reynaldo Nascimento MD PCP - General 03/02/01 04/08/10 Deepali Santana MD [address] [place] [address] PCP - General Internal Medicine 05/21/15 07/17/15 Rock Rodrigues MD [facility] [place] [address] PCP - General Internal Medicine 07/18/15 documented as of this encounter
--- OUTSIDE RECORDS SUMMARY | 2024-06-12 14:41 | XMS_ITS | Encounter Summary ---
Author Organization [employer] Address [address] [place] [address] 7 [place] [address] Care Team Providers Care Payroll Examiner Name Role Phone Name, Rock DE PAZ Primary Care Provider [phone] Encounter Details Date Type Department Care Team ([facility] Contact Info) Description 05/06/2022 Orders Only [facility] MEDICINE [address] [place] [phone] Karen Falk LPN Social History Tobacco Use [...] Description 07/17/2024 1:00 PM EDT Clinical Support [address] [address] Corrie Chen RN documented as of this encounter Visit Diagnoses Not on filedocumented in this encounter Care Teams Payroll Examiner Relationship Specialty Start Date End Date Name, MD [place] [address] [place] [address] [place] [address] PCP - General Family Medicine 07/04/15 documented as of this encounter
--- OUTSIDE RECORDS SUMMARY | 2024-06-12 14:41 | XMS_ITS | Encounter Summary ---
Author Organization [employer] Address [address] [facility] 7 [place] [address] Care Team Providers Care Forklift Material Handler Name Role Phone Name, Rock DE PAZ Primary Care Provider [phone] Reason for Visit * Reason Onset Date Comments Med Refill 04/27/2024 Encounter Details Date Type Department Care Team (Late st Contact Info) Description 04/27/2024 Refill [facility] MEDICINE [address] [place], [place] [phone] Name, MD Rock [address] [place], [place] [phone] Chronic pain syndrome Social History Tobacco Use [...] 1:00 PM EDT Clinical Support [facility] MEDICINE [address] [place] [address] Corrie Chen, SCOUT documented as of this encounter Visit Diagnoses Diagnosis Chronic pain syndrome documented in this encounter Additional Health Concerns Assessment Noted Time PHQ-9 Depression Total Score: 12 024 2:16 PM EDT documented as of this encounter Care Teams Forklift Material Handler Relationship Specialty Start Date End Date Name, MD [place] [address] [place] [address] PCP - General Family Medicine 07/04/15 documented as of this encounter
--- OUTSIDE RECORDS SUMMARY | 2024-06-12 14:41 | XMS_ITS | Encounter Summary ---
Author Organization [facility] Address [address] [place] [address] Care Team Providers Care Senior Property Manager Name Role Phone Name, Rock DE PAZ Primary Care Provider Unavailabl e Deepali Santana MD Primary Care Provider [phone] Name, Rock DE PAZ Primary Care Provider Unavailabl e Encounter Details Date Type Department Care Team Description 02/14/2014 Hospital Medical Records [address] [place] [address] Venancio Suggs MD Social History Tobacco Use [...] on filedocumented in this encounter Care Teams Senior Property Manager Relationship Specialty Start Date End Date [place] Rodrigues MD PCP - General 10/10/10 05/20/15 Deepali Santana MD [address] [place], [place] [phone] PCP - General Internal Medicine 05/21/15 07/17/15 Rock Rodrigues MD [address] [place] [address] PCP - General Internal Medicine 07/18/15 documented as of this encounter
--- OUTSIDE RECORDS SUMMARY | 2024-06-12 14:41 | XMS_ITS | Encounter Summary ---
Author Organization [employer] Address [address] [place] [address] 7 [place] [address] Care Team Providers Care Consumer Loan Specialist Name Role Phone Name, Rock DE PAZ Primary Care Provider [phone] Encounter Details Date Type Department Care Team ([facility] Contact Info) Description 09/14/[address] [address] Name, MD Rock [address] [place] [address] Social History Tobacco Use Types Packs/Day Years [...] Upcoming Encounters Date Type Department Care Team ([facility] Contact Info) Description 07/17/2024 1:00 PM EDT Clinical Support [address] [address] Corrie Chen, RN documented as of this [...] on filedocumented in this encounter Care Teams Consumer Loan Specialist Relationship Specialty Start Date End Date Name, MD Rock [address] [place] [address] PCP - General Family Medicine 07/04/15 documented as of this encounter
--- OUTSIDE RECORDS SUMMARY | 2024-06-12 14:41 | XMS_ITS | Encounter Summary ---
Author Organization [employer] Address [address] [place] [address] 7 [place] [address] Care Team Providers Care Petroleum Production Engineer Name Role Phone Name, Rock DE PAZ Primary Care Provider [phone] Reason for Visit * Reason Comments Med Refill Encounter Details Date Type Department Care Team ([facility] Contact Info) Description 09/21/2022 Refill [facility] MEDICINE [address] [place] [address] [phone] Name, MD [place] [address] [place] [address] Insomnia, unspecified type; Pain Social History Tobacco [...] Upcoming Encounters Date Type Department Care Team ([facility] Contact Info) Description 07/17/2024 1:00 PM EDT Clinical Support [facility] MEDICINE [address] [place] [address] Corrie Chen, SCOUT documented as of this encounter Visit Diagnoses Diagnosis Insomnia, unspecified type Pain Generalized pain documented in this encounter Care Teams Petroleum Production Engineer Relationship Specialty Start Date End Date Name, MD [place] [address] [place] [address] PCP - General Family Medicine 07/04/15 documented as of this encounter
--- OUTSIDE RECORDS SUMMARY | 2024-06-12 14:41 | XMS_ITS | Encounter Summary ---
Author Organization [employer] Address [address] [place] [address] 7 [place] [address] Care Team Providers Care Supervisor Paste Mixing Name Role Phone Name, Rock DE PAZ Primary Care Provider [phone] Reason for Visit * Reason Comments Med Refill Encounter Details Date Type Department Care Team (Late st Contact Info) Description 09/16/2022 Refill [facility] MEDICINE [address] [place] [address] [phone] Name, MD [place] [address] [place] [phone] Chronic pain syndrome Social History Tobacco Use [...] 1:00 PM EDT Clinical Support [facility] MEDICINE [address] [place] [address] Corrie Chen, SCOUT documented as of this encounter Visit Diagnoses Diagnosis Chronic pain syndrome documented in this encounter Care Teams Supervisor Paste Mixing Relationship Specialty Start Date End Date Name, MD [place] [address] [place] [address] PCP - General Family Medicine 07/04/15 documented as of this encounter
--- OUTSIDE RECORDS SUMMARY | 2024-06-12 14:41 | XMS_ITS | Encounter Summary ---
Author Organization [facility] Address [address] [place] [address] Care Team Providers Care Washcloth Folder Name Role Phone NameRock MD Primary Care Provider Unavailabl e Deepali Santana MD Primary Care Provider [phone] Name, Rock DE PAZ Primary Care Provider Unavailabl e Encounter Details Date Type Department Care Team Description 08/31/2013 Stone Mill Operator Report Medical Records [address] [place] [address] Akshat Gallagher Social History Tobacco Use Types [...] on filedocumented in this encounter Care Teams Washcloth Folder Relationship Specialty Start Date End Date [place] Rodrigues MD PCP - General 10/10/10 05/20/15 Deepali Santana MD [address] [place] [address] PCP - General Internal Medicine 05/21/15 07/17/15 Rock Rodrigues MD [address] [place] [address] PCP - General Internal Medicine 07/18/15 documented as of this encounter
--- OUTSIDE RECORDS SUMMARY | 2024-06-12 14:41 | XMS_ITS | Encounter Summary ---
Author Organization [facility] Address [address] [place] [address] Care Team Providers Care Rim Roller Operator Name Role Phone NameRock MD Primary Care Provider Unavailabl e Deepali Santana MD Primary Care Provider [phone] Name, Rock DE PAZ Primary Care Provider Unavailabl e Encounter Details Date Type Department Care Team Description 11/17/2013 Income Auditor Report Medical Records [address] [place] [phone] Social History Tobacco Use Types Packs/Day Years [...] on filedocumented in this encounter Care Teams Rim Roller Operator Relationship Specialty Start Date End Date [place] Rodrigues MD PCP - General 10/10/10 05/20/15 Deepali Santana MD [address] [place] [address] PCP - General Internal Medicine 05/21/15 07/17/15 [place] Rodrigues MD [address] [place] [address] PCP - General Internal Medicine 07/18/15 documented as of this encounter
--- OUTSIDE RECORDS SUMMARY | 2024-06-12 14:42 | XMS_ITS | Encounter Summary ---
Author Organization [facility] Address [address] [place] [address] Care Team Providers Care Lump Receiver Name Role Phone NameRock MD Primary Care Provider Unavailabl e Deepali Santana MD Primary Care Provider [phone] Name, Rock DE PAZ Primary Care Provider Unavailabl e Encounter Details Date Type Department Care Team Description 06/06/2013 Finisher Machine Report Medical Records [address] [place] [address] Akshat Gallagher Social History Tobacco Use Types [...] on filedocumented in this encounter Care Teams Lump Receiver Relationship Specialty Start Date End Date [place] Rodrigues MD PCP - General 10/10/10 05/20/15 Deepali Santana MD [address] [place] [address] PCP - General Internal Medicine 05/21/15 07/17/15 [place] Rodrigues MD [address] [place] [address] PCP - General Internal Medicine 07/18/15 documented as of this encounter
--- OUTSIDE RECORDS SUMMARY | 2024-06-12 14:42 | XMS_ITS | Encounter Summary ---
Author Organization [employer] Address [address] [facility] 7 [place] [address] Care Team Providers Care Combat Systems Engineer Name Role Phone Name, Rock DE PAZ Primary Care Provider [phone] Reason for Visit * Reason Onset Date Comments Med Refill 01/31/2024 Encounter Details Date Type Department Care Team ([facility] st Contact Info) Description 01/31/2024 Refill [facility] MED & PEDS [address] [place] [address] Juhi Diaz, FUNERAL LOCATION MANAGER [address] [place] [address] Chronic pain syndrome; Insomnia, unspecified type Social [...] Description 07/17/2024 1:00 PM EDT Clinical Support [facility] MEDICINE [address] [place] [address] Corrie Chen, SCOUT documented as of this encounter Visit Diagnoses Diagnosis Chronic pain syndrome Insomnia, unspecified type documented in this encounter Additional Health Concerns Assessment Noted Time PHQ-9 Depression Total Score: 12 024 2:16 PM EDT documented as of this encounter Care Teams Combat Systems Engineer Relationship Specialty Start Date End Date Name, MD [place] [address] [place] [address] PCP - General Family Medicine 07/04/15 documented as of this encounter
--- OUTSIDE RECORDS SUMMARY | 2024-06-12 14:42 | XMS_ITS | Encounter Summary ---
Author Organization [employer] Address [address] [facility] 7t [place] [address] Care Team Providers Care Agricultural Pilot Name Role Phone Name, Rock DE PAZ Primary Care Provider [phone] Reason for Visit * Reason Comments Med Refill Encounter Details Date Type Department Care Team ([facility] st Contact Info) Description 11/29/2023 Refill [facility] [address] [place] [address] [phone] Name, MD Rock [address] [place] [address] [phone] Chronic pain syndrome Social History Tobacco Use [...] 1:00 PM EDT Clinical Support [facility] MEDICINE [address] [place] [address] Corrie Chen, RN documented as of this encounter Visit Diagnoses Diagnosis Chronic pain syndrome documented in this encounter Additional Health Concerns Assessment Noted Time PHQ-9 Depression Total Score: 12 024 2:16 PM EDT documented as of this encounter Care Teams Agricultural Pilot Relationship Specialty Start Date End Date Name, MD Rock [address] [place] [address] PCP - General Family Medicine 07/04/15 documented as of this encounter
--- OUTSIDE RECORDS SUMMARY | 2024-06-12 14:42 | XMS_ITS | Encounter Summary ---
Author Organization [employer] Address [address] [facility] 7 [place] [address] Care Team Providers Care Private Branch Exchange Installer Name Role Phone Name, Rock DE PAZ Primary Care Provider [phone] Reason for Visit * Reason Onset Date Comments Med Refill 03/03/2024 Encounter Details Date Type Department Care Team (Late st Contact Info) Description 03/03/2024 Refill [facility] [address] [place], [place] [phone] Name, MD Rock [address] [place] [address] Chronic pain syndrome Social History Tobacco Use [...] Description 07/17/2024 1:00 PM EDT Clinical Support [facility] [address] [place] [address] Corrie Chen, SCOUT documented as of this encounter Visit Diagnoses Diagnosis Chronic pain syndrome documented in this encounter Additional Health Concerns Assessment Noted Time PHQ-9 Depression Total Score: 12 024 2:16 PM EDT documented as of this encounter Care Teams Private Branch Exchange Installer Relationship Specialty Start Date End Date Name, MD Rock [address] [place] [address] PCP - General Family Medicine 07/04/15 documented as of this encounter
--- OUTSIDE RECORDS SUMMARY | 2024-06-12 14:42 | XMS_ITS | Encounter Summary ---
Author Organization [facility] Address [address] [place] [address] Care Team Providers Care Staging Technician Name Role Phone Name, Rock DE PAZ Primary Care Provider Unavailabl e Deepali Santana MD Primary Care Provider [phone] Name, Rock DE PAZ Primary Care Provider Unavailabl e Encounter Details Date Type Department Care Team Description 02/22/2013 Traffic Technician Report Medical Records [address] [place] [id number] Saira Blackmon MD Social History Tobacco Use [...] on filedocumented in this encounter Care Teams Staging Technician Relationship Specialty Start Date End Date Rock Rodrigues MD PCP - General 10/10/10 05/20/15 Deepali Santana MD [address] [place] [phone] PCP - General Internal Medicine 05/21/15 07/17/15 Rock Rodrigues MD [address] [place] [address] PCP - General Internal Medicine 07/18/15 documented as of this encounter
--- OUTSIDE RECORDS SUMMARY | 2024-06-12 14:42 | XMS_ITS | Encounter Summary ---
Author Organization [employer] Address [address] [facility] 7 [place] [address] Care Team Providers Care Agent Licensing Clerk Name Role Phone Name, Rock DE PAZ Primary Care Provider [phone] Reason for Visit * Reason Onset Date Comments Med Refill 02/09/2024 Encounter Details Date Type Department Care Team (Late st Contact Info) Description 02/09/2024 Refill [facility] [address] [place], [place] [phone] Name, MD Rock [address] [place], [place] [phone] Chronic pain syndrome Social History Tobacco Use [...] 07/17/2024 1:00 PM EDT Clinical Support [facility] [address] [place] [address] Corrie Chen, SCOUT documented as of this encounter Visit Diagnoses Diagnosis Chronic pain syndrome documented in this encounter Additional Health Concerns Assessment Noted Time PHQ-9 Depression Total Score: 12 024 2:16 PM EDT documented as of this encounter Care Teams Agent Licensing Clerk Relationship Specialty Start Date End Date Name, MD Rock [address] [place] [address] PCP - General Family Medicine 07/04/15 documented as of this encounter
--- OUTSIDE RECORDS SUMMARY | 2024-06-12 14:42 | XMS_ITS | Encounter Summary ---
Author Organization [employer] Address 75 [facility] 7 [place] [address] Care Team Providers Care Mail Examiner Name Role Phone Name, Rock DE PAZ Primary Care Provider [phone] Reason for Visit * Reason Onset Date Comments Med Refill 02/09/2024 Encounter Details Date Type Department Care Team (Late st Contact Info) Description 02/09/[address] [facility] [address] [place], [place] [phone] Name, MD Rock [address] [place], [place] [phone] Chronic pain syndrome; Insomnia, unspecified type Social [...] 1:00 PM EDT Clinical Support [facility] [address] [place] [address] Corrie Chen, RN documented as of this encounter Visit Diagnoses Diagnosis Chronic pain syndrome Insomnia, unspecified type documented in this encounter Additional Health Concerns Assessment Noted Time PHQ-9 Depression Total Score: 12 024 2:16 PM EDT documented as of this encounter Care Teams Mail Examiner Relationship Specialty Start Date End Date Name, MD Rock [address] [place] [address] PCP - General Family Medicine 07/04/15 documented as of this encounter
--- OUTSIDE RECORDS SUMMARY | 2024-06-12 14:42 | XMS_ITS | Encounter Summary ---
Author Organization [employer] Address [address] [facility] 7 [place] [address] Care Team Providers Care Paper Machine Tender Name Role Phone Name, Rock DE PAZ Primary Care Provider [phone] Reason for Visit * Reason Onset Date Comments Med Refill 06/03/2024 Encounter Details Date Type Department Care Team (Late st Contact Info) Description 06/03/2024 Refill [facility] [address] [place], [place] [phone] Name, MD Rock [address] [place], [place] [phone] Hypophosphatemia Social History Tobacco Use Types Packs/Day [...] Description 07/17/2024 1:00 PM EDT Clinical Support [facility] [address] [place] [address] Corrie Chen, SCOUT documented as of this encounter Visit Diagnoses Diagnosis Hypophosphatemia Disorders of phosphorus metabolism documented in this encounter Additional Health Concerns Assessment Noted Time PHQ-9 Depression Total Score: 17 025 2:50 PM EST documented as of this encounter Care Teams Paper Machine Tender Relationship Specialty Start Date End Date Name, MD Rock [address] [place] [address] PCP - General Family Medicine 07/04/15 documented as of this encounter
--- OUTSIDE RECORDS SUMMARY | 2024-06-12 14:42 | XMS_ITS | Clinical Summary ---
Author Organization [employer] Address [address] [facility] 7t [place] [address] Care Team Providers Care Sr. Manager Marketing Name Role Phone Name, Rock DE PAZ Primary Care Provider Allergies Active Allergy Reactions Criticality Noted Date [...] TWICE DAILY BEFORE MEAL(S) 180 capsule 1 024 Active ezetimibe (Zetia) 10 MG tabletIndicati ons:High cholesterol,St atin intolerance TAKE 1 TABLET BY MOUTH EVERY DAY 90 tablet 1 024 Active venlafaxine XR (Effexor XR) 75 MG 24 hr capsuleIndicat ions:Chronic pain syndrome,Insom shital, unspecified type TAKE 1 CAPSULE BY MOUTH ONCE DAILY WITH FOOD. TAKE WITH 150MG DOSE FOR A TOTAL OF 225MG. 90 capsule 1 024 Active OXcarbazepine (Trileptal) 150 MG tabletIndicati ons:Hypophosph atemia Take 1 tablet by mouth twice daily 60 tablet 025 Active loratadine (Claritin) 10 MG tabletIndicati ons:Rhinorrhea TAKE 1 TABLET BY MOUTH EVERY MORNING 90 tablet 025 Active hydroCHLOROthi azide (HYDRODiuril) 25 MG tablet Take 1 tablet (25 mg) by mouth Once per day. 30 tablet 025 2025 Active albuterol 108 (90 Base) MCG/ACT inhaler Inhale 2 puffs every 6 (six) hours if needed for wheezing. 18 g 025 2025 Active fluticasone furoate (Arnuity Ellipta) [...] TO 23 DAYS 90 tablet 025 Active traMADol (Ultram) 50 MG tabletIndicati ons:Chronic pain syndrome Take 1 tablet (50 mg) by mouth every 6 (six) hours if needed for severe pain for up to 28 days. 84 tablet 025 2024 Active zolpidem (Ambien) 10 MG tabletIndicati ons:Insomnia, unspecified type TAKE 1 TABLET BY MOUTH ONCE DAILY AT BEDTIME NEEDED FOR SLEEP 28 tablet Active busPIRone (Buspar) 30 MG tabletIndicati ons:Insomnia, unspecified type TAKE 1 TABLET BY MOUTH TWICE DAILY 60 tablet 2 Active venlafaxine XR (Effexor XR) 150 MG 24 hr capsuleIndicat ions:Hypophosp hatemia TAKE 1 CAPSULE BY MOUTH ONCE DAILY. TAKE WITH 75MG DOSE FOR A TOTAL DOSE OF 225MG DAILY. 90 capsule 1 Active albuterol 108 (90 Base) MCG/ACT inhalerIndicat ions:Moderate asthma, unspecified whether complicated, unspecified whether persistent Inhale 2 puffs every 6 (six) hours if needed for wheezing. 18 g 11 024 2024 Discontinued(D ose adjustment) hydroCHLOROthi azide 12.5 MG tablet Take 1 tablet (12.5 mg) by mouth Once per day. 30 tablet 11 024 2024 Discontinued(D ose adjustment) venlafaxine XR (Effexor XR) 150 MG 24 hr capsuleIndicat ions:Hypophosp hatemia TAKE 1 CAPSULE BY MOUTH ONCE DAILY. TAKE WITH 75MG DOSE FOR A TOTAL DOSE OF 225MG DAILY. 90 capsule 024 2024 Discontinued(R eorder (will not trigger [...] eorder (will not trigger notification to Pharmacy)) busPIRone (Buspar) 30 MG tabletIndicati ons:Insomnia, unspecified type Take 1 tablet by mouth twice daily 60 tablet 025 2024 Discontinued(R eorder (will not trigger notification to Pharmacy)) zolpidem (Ambien) 10 MG tabletIndicati ons:Insomnia, unspecified type TAKE 1 TABLET BY MOUTH ONCE DAILY AT BEDTIME NEEDED FOR SLEEP 28 tablet 025 2024 Discontinued(R eorder (will not trigger notification [...] Encounters Date Type Department Care Team Description 06/04/2024 Refill [facility] [address] [place], [place] [phone] Cheyenne Finnegan DO Insomnia, unspecified type; Hypophosphatemia 06/04/2024 Refill [facility] [address] [place] [address] Agnieszka Arvizu MD Insomnia, unspecified type 06/03/2024 Refill [facility] [address] [place], [place] [phone] Rock Rodrigues MD Hypophosphatemia 05/23/2024 Refill [facility] [address] [place] [address] Rock Rodrigues MD Chronic pain syndrome (Primary Dx) 05/22/2024 Orders Only GENERIC EXTERNAL DATA DEPARTMENT Provider, Generic External Data 05/20/2024 Refill [facility] [address] [place] [address] Rock Rodrigues MD Chronic pain syndrome 05/17/2024 2:00 PM EST Office Visit [facility] [address] [place] [address] Rock Rodrigues MD Cough, unspecified type (Primary Dx); Wheezing; History of asthma; Hypertension, unspecified type 05/17/2024 Travel 05/09/2024 Refill [facility] [address] [place] [address] oRck Rodrigues MD Rhinorrhea 05/08/2024 Refill [facility] [address] [place] [address] oRck Rodrigues MD Rhinorrhea 05/08/2024 Refill [facility] [address] [place] [address] Rock Rodrigues MD Chronic pain syndrome; Insomnia, unspecified type 05/08/2024 Refill [facility] [address] [place] [address] Rock Rodrigues MD Insomnia, unspecified type; Rhinorrhea 05/08/2024 Refill [facility] [address] [place] [address] Rock Rodrigues MD Hypophosphatemia; Insomnia, unspecified type 05/04/2024 Telephone [facility] [address] [place] [address] Rock Rodrigues MD Prior Authorization (carisoprodol (Soma) ) 04/27/2024 Refill [facility] [address] [place] [address] Rock Rodrigues MD Chronic pain syndrome 04/22/2024 Refill [facility] [address] [place] [address] Rock Rodrigues MD Chronic pain syndrome 04/21/2024 Telephone [facility] [place] [address] Dorota Henry MA PCP OUT 04/18/2024 11:30 AM EST Clinical Support [facility] [address] Corrie Chen RN Chronic pain syndrome (Primary Dx) 04/18/2024 Telephone [facility] [place] [address] Corrie Chen RN Abnormal UTOX 04/18/2024 Travel 04/18/2024 Telephone [facility] [place] [address] Corrie Chen RN Recommend EXPERIENCE DESIGN DIRECTOR Tier 2 04/16/2024 Refill [facility] [address] Rock Rodrigues MD Chronic pain syndrome (Primary Dx) 04/10/2024 Telephone [facility] [place] [address] Rock Rodrigues MD Appointment Request 04/07/2024 Refill [facility] [address] Rock Rodrigues MD Insomnia, unspecified type 03/27/2024 Refill [facility] [address] Rock Rodrigues MD Chronic pain syndrome from Last 3 Months Immunizations Name Administration Dates Next Due INFLUENZA VACCINE QUADRIVALE NT RECOMBINANT PRESERVATIVE FREE RIV4 01/20/2020,02/09/2019 Influenza injectable quadriv alent preservative free 02/15/2023,01/07/2022,02/17/2021,01/15,01/28/2017,01/22/2016 Influenza, IIV3, injectable 01/07/2015,1 ,02/16/2013,01/10,01/24/2009 Novel [id number], preservative-free 04/03/2009 Pfizer Covid-19 Vaccine 12+ 03/29/2023 [...] is your housing situation today? I have sarahmargy ruffin 05/17/[address] you [...] Description 07/17/2024 1:00 PM EDT Clinical Support [facility] [address] [place] [address] [phone] Corrie Chen, RN Health Maintenance Due Date [...] C Screening Completed 12/23/2021, 021 Pneumococcal Vaccine: 50+ Years Completed 02/15/2023, 08/15/2013 RSV Patients and Patients [...] * T4, Free (05/22/2024 2:49 PM EST) Pathologist [facility] Free T4 (Free Thyroxine) 1.39 0.71 - 1.85 ng/dL [facility] 05/22/2024 2:49 PM EST 05/22/2024 2:49 PM EST us Generic External Data Provider LAB BLOOD ORDERAB LES Final Result [facility] [address] [place] [phone] * POCT Rapid Covid-19 BinaxNOW (05/17/2024 3:33 PM EST) [facility] Rapid COVID Ag Negative QC Media Lot # [id number] Lot# Expiration Date Swab 05/17/2024 3:33 PM EST Rock Rodrigues MD POINT OF CARE TEST ENTER/EDIT OR DERABLES Final Result * POCT Rapid Influenza B OSOM (05/17/2024 3:32 PM EST) Rapid Influenza B Ag Negative Negative, Indeterminate QC Media Lot # [id number] Lot# Expiration Date Swab 05/17/2024 3:32 PM EST [facility] POINT OF CARE TEST ENTER/EDIT OR DERABLES Final Result * POCT Rapid Influenza A OSOM (05/17/2024 3:32 PM EST) Pathologist [facility] Rapid Influenza A Ag Negative Negative, Indeterminate QC Media Lot # [id number] Lot# Expiration Date Swab Nasopharyngeal structure / Unknown 05/17/2024 3:32 PM EST [facility] POINT OF CARE TEST ENTER/EDIT OR DERABLES Final Result * (ABNORMAL) POCT PAULETTE-14 Urine Drug Screen (04/18/2024 11:51 AM EST) Pathologist [facility] THC Positive Methadone Screen, Urine Positive TCA, Urine Positive Phencyclidine (PCP), Urine Positive Urine Urine specimen obtained by clean catch procedure / Unknown 04/18/2024 11:51 AM EST Corrie Gomez RN - 04/18/2024 11:51 AM EST UTOX cup Lot#[id number] Exp. 01/18/26 Internal Pass Control [facility] POINT OF CARE TEST ENTER/EDIT OR DERABLES Final Result * Drug Monitoring, Phencyclidine, Quantitative, Urine (04/18/2024 11:30 AM EST) Pathologist [facility] Phencyclidine NEGATIVE [facility] Comment:REFERENCE RANGE: <25 ng/mLThis drug testing is for medical treatment only.Analysis was performed as non-forensic testing andthese results should be used only by healthcareproviders to render diagnosis or treatment, or tomonitor progress of medical conditions.LDT Notes:Confirmation tests were developed and their analyticalperformance characteristics have been determined by[facility]. It has not been cleared or approvedby the FDA. This assay has been validated pursuant tothe CLIA regulations and is used for clinical purposes.Healthcare Providers needing Interpretation assistance,please contact us at [phone] ( )M- F, 8am to 10pm ESTTHIS TEST PERFORMED AT:[facility] [address] [phone] DIRECTOR: NANCY ADKINS MD Urine (Urine, Random) 04/18/2024 11:30 AM EST 04/18/2024 1:23 PM EST us Rock Rodrigues MD LAB URINE ORDERABLES Final Resul t Performing Organization Address [facility] Co de Phone Number [facility] [address] [place] [phone] * Drug Monitoring, Methadone Metabolite, Screen, Urine (04/18/2024 11:30 AM EST) Methadone Screen, Urine Not Detected Not Detect ng/mL [facility] Comment:Methadone cut-off is 300 ng/mL.Positive results are unconfirmed and should not be used fornon-medical purposes. Urine (Urine, Random) 04/18/2024 11:30 AM EST 04/18/2024 1:23 PM EST Rock Rodrigues MD LAB URINE ORDERABLES Final Resul t Performing Organization Address [facility] Co de Phone Number [facility] [address] [place] [phone] * BI Mammogram Screening Tomosynthesis Bilateral (02/04/2024 1:40 PM EDT) Anatomical Region Laterality Modality Breast Bilateral Mammography 02/04/2024 1:40 PM EDT Narrative 02/17/2024 9:45 PM EDT ? [facility] ? [address] ?[place] [address] ? Mammography Report ? Signed ? Patient: Jayson,Coleen ?MR#: [id number] ? : 1960 ?Acct:[id number] ? Age/Sex: 64 / F ?ADM Date: 02/04/24 ? Loc: HO.MAMMO ? Attending Dr: Rock Rodrigues MD ? Ordering Physician: Rock Rodrigues MD ?Results: 1Negative ? Date of Service: 02/04/24 ?Follow Up: 1 Year From Orig ?? inal Mammogram ? Procedure(s): MM tomosynthesis screening BI ?? Accession Number(s): [id number] ? cc: Name,Rock DE PAZ ? EXAMINATION: [...] by Kristal Santos, DO in OV> ? 02/17/24 2142 ? DD/ 1340 ? TD/TT: 02/04/24 1358 ? Grain Sacker: ? Procedure Note Donamaraleviter, Image - 02/17/2024 [facility] [address] [place] [address] Mammography Report Signed Patient: John Tyler#: [id number] : 1Acct:[id number] Age/Sex: 64 / FADM Date: 02/04/24 Loc: GAYLA.ALINAO Attending Dr: Rock Rodrigues MD Ordering Physician: Rock Rodriguesesults: 1Negative Date of Service: 02/04/24Follow Up: 1 Year From Orig inal Mammogram Procedure(s): MM tomosynthesis screening BI Accession Number(s): [id number] cc: Rock Rodrigues MD EXAMINATION: MM SCREENING [...] 02/17/24 2142 DD/ 1340 TD/TT: 02/04/24 1358 Grain Sacker: us Rock Name IMYareli BI PROCEDURES Edited Result - Final * (ABNORMAL) Lipid Panel, Standard (12/07/2023 11:55 AM EDT) Triglycerides 236(H) <150 mg/dL [facility] Comment:Desirable Triglyceri de: less than 150 mg/dLBorderline High Triglyceride 150-199 mg/dLHigh Triglyceride: 200-499 mg/dLVery High Triglyceride: greater than or equal to 5OO mg/dL Cholesterol 300(H) <200 mg/dL [facility] Comment:Desirable Cholestero l: less than 200 mg/dLBorderline High Cholesterol: 200-239 mg/dLHigh Cholesterol: greater than 239 mg/dL LDL Cholesterol Calculated 214(H) <100 mg/dL [facility] Comment:Desirable LDL: less than 100 mg/dLNear Optimal/Above Optimal LDL: 110- 129 mg/dLBorderline High LDL: 130-159 mg/dLHigh LDL: 160-189 mg/dLVery High LDL: greater than or equal to 190 mg/dL HDL Cholesterol 39(L) >40 mg/dL [facility] Comment:Desirable HDL: great er than 40 mg/dL Note: This HDL assay may give artificially low results in patients with liver disease. 12/07/2023 11:5 5 AM EDT 12/07/2023 11:55 AM EDT us Generic External Data Provider LAB BLOOD ORDERAB LES Final Result [facility] [address] [place] [address] [phone] * Hm Colonoscopy (11/22/2023) Colonoscopy Normal Normal us Rock Rodrigues MD HEALTH MAINTENANCE Final Result * THINPREP TIS PAP AND HPV mRNA E6/E7 WITH REFLEX TO HPV 16,18/45 (01/07/2022 3:18 PM EDT) Clinical Information: None given [facility] COMMENT SEE COMMENT [facility] ON [...] has been evaluated with computer assisted technology. [facility] Air Hammer Stripper: SEE COMMENT [facility] Comment: MAA, CT(ASCP) CT screening location: [address] ??[phone] HPV nRNA E6/E7 Not Detected Not Detected [facility] Comment: Methodology: Hopper Attendant-Mediated Amplification This assay detects E6/E7 viral messenger RNA (mRNA) from 14 high-risk HPV types (16,18,31,33,35,39,45,51,52,56,58,59,66,68). ? Cervical sources are required for HPV testing. If a vaginal source from a patient who has had a total hysterectomy with removal of cervix was ?? submitted, please contact the testing laboratory for alternative testing options. ?? For additional information, please refer to http://education.Kaleidoscope/faq/AUS268d6 (This link if provided for information/ educational purposes only.) Interpretation/Res ult: SEE COMMENT [facility] Comment: Negative for intraepithelial lesion or malignancy. Atrophic pattern; predominantly parabasal cells LMP: MENOPAUSE X 48 [facility] Prev. BX: NONE GIVEN [facility] Prev. PAP: YES [facility] SOURCE: None given [facility] Statement Of Adequacy: SATISFACTORY FOR EVALUATION [facility] 01/07/2022 3:18 PM EDT Tisha Venegas CNM LAB PATHOLOGY ORDERABLES Final Result Performing Organization Address [facility] Co de Phone Number [facility] [address] [place] [address], * HEPATITIS C AB W/REFL TO HCV RNA, QN, PCR (12/23/2021 2:35 PM EDT) HEPATITIS C ANTIBODY NON-REACT MARK NON-REACT MARK [facility] INDEX 0.12 <1.00 [facility] Comment: ?? HCV antibody was non-reactive. There is no laboratory ?? evidence of HCV infection. ?? In most cases, no further action is required. However, if recent HCV exposure is suspected, a test for HCV RNA (test code 16979) is suggested. ?? For additional information please refer to http://education.Kaleidoscope/faq/DBL59e0 (This link is being provided for informational/ educational purposes only.) ?? 12/23/2021 2:35 PM EDT Rock Rodrigues MD HISTORICAL/NON ORDERABLE LABS Fi nal Result Performing Organization Address [facility] Co de Phone Number [facility] [address] [place] [address], * HIV 1/2 ANTIGEN/ANTIBODY,FOURTH GENERATION W/RFL (02/17/2021 3:50 PM EDT) HIV-1/2 ANTIGEN AND ANTIBODIES, 4TH GENERATION W/ REFLEX NON-REACT MARK NON-REACT MARK [facility] Comment: HIV-1 antigen and HIV-1/HIV-2 [...] ? For additional information please refer to http://education.Kaleidoscope/faq/RBF318 (This link is being provided for informational/ educational purposes only.) ? The performance of this assay has not been clinically validated in patients less than 2 years old. ?? 02/17/2021 3:50 PM EDT us Rock Name LAB BLOOD ORDERABLES Final Resul t [facility] [address] from Last 3 Months or Most Recently Relevant to Health Maintenance Insurance [facility]IC[facility] RE[facility] Care Teams Sr. Manager Marketing Relationship Specialty Start Date End Date Name, MD Rock [address] [place] [phone] PCP - General Family Medicine 07/04/15
--- OUTSIDE RECORDS SUMMARY | 2024-06-12 14:42 | XMS_ITS | Encounter Summary ---
Author Organization [employer] Address 75 [facility] 7 [place] [address] Care Team Providers Care Vault Service Mechanic Name Role Phone Name, Rock DE PAZ Primary Care Provider [phone] Reason for Visit * Reason Onset Date Comments Med Refill 03/10/2024 Encounter Details Date Type Department Care Team ([facility] st Contact Info) Description 03/10/2024 Refill [facility] MEDICINE [address] [place], [place] [phone] Name, MD Rock [address] [place], [place] [phone] Hypophosphatemia Social History Tobacco Use Types Packs/Day [...] Clinical Support [facility] [address] [place] [address] Corrie Chen, RN documented as of this encounter Visit Diagnoses Diagnosis Hypophosphatemia Disorders of phosphorus metabolism documented in this encounter Additional Health Concerns Assessment Noted Time PHQ-9 Depression Total Score: 12 024 2:16 PM EDT documented as of this encounter Care Teams Vault Service Mechanic Relationship Specialty Start Date End Date Name, MD Rock [address] [place] [address] PCP - General Family Medicine 07/04/15 documented as of this encounter
--- OUTSIDE RECORDS SUMMARY | 2024-06-12 14:42 | XMS_ITS | Encounter Summary ---
Author Organization [employer] Address 75 [facility] 7 [place] [address] Care Team Providers Care Sewer Line Repairer Name Role Phone Name, Rock DE PAZ Primary Care Provider [phone] Reason for Visit * Reason Onset Date Comments Med Refill 02/09/2024 Encounter Details Date Type Department Care Team (Late st Contact Info) Description 02/09/2024 Refill [facility] MEDICINE 230 [place], [place] [phone] Name, MD Rock [address] [place] [address] Social History Tobacco Use Types Packs/Day Years [...] 07/17/2024 1:00 PM EDT Clinical Support [facility] MEDICINE [address] [place] [address] Corrie Chen, RN documented as of this encounter Visit Diagnoses Not on filedocumented in this encounter Additional Health Concerns Assessment Noted Time PHQ-9 Depression Total Score: 12 024 2:16 PM EDT documented as of this encounter Care Teams Sewer Line Repairer Relationship Specialty Start Date End Date Name, MD Rock [address] [place] [address] PCP - General Family Medicine 07/04/15 documented as of this encounter
--- OUTSIDE RECORDS SUMMARY | 2024-06-12 14:42 | XMS_ITS | Encounter Summary ---
Author Organization [employer] Address 75 [facility] 7t [place] [address] Care Team Providers Care Assistant Brand Manager Name Role Phone Name, Rock DE PAZ Primary Care Provider [phone] Encounter Details Date Type Department Care Team ([facility] st Contact Info) Description 05/20/[address] [facility] MEDICINE 230 [place], [place] [phone] Name, MD Rock [address] [place] [address] Social History Tobacco Use Types Packs/Day Years [...] PM EDT Clinical Support [facility] MEDICINE [address] [place] [address] Corrie Chen, RN documented as of this encounter Visit Diagnoses Not on filedocumented in this encounter Additional Health Concerns Assessment Noted Time PHQ-9 Depression Total Score: 21 023 10:14 AM EDT documented as of this encounter Care Teams Assistant Brand Manager Relationship Specialty Start Date End Date Name, MD Rock [address] [place] [address] PCP - General Family Medicine 07/04/15 documented as of this encounter
--- OUTSIDE RECORDS SUMMARY | 2024-06-12 14:42 | XMS_ITS | Encounter Summary ---
Author Organization [employer] Address 75 [facility] 7t [place] [address] Care Team Providers Care Director Fundraising Name Role Phone Name, Rock DE PAZ Primary Care Provider [phone] Encounter Details Date Type Department Care Team (Late st Contact Info) Description 11/24/2023 Abstract [facility] MEDICINE [address] [place], [place] [phone] Name, MD Rock [address] [place] [address] Social History Tobacco Use Types Packs/Day Years [...] 07/17/2024 1:00 PM EDT Clinical Support [facility] MEDICINE 230 [place] [address] Corrie Chen RN documented as of this [...] as of this encounter Care Teams Director Fundraising Relationship Specialty Start Date End Date Name, MD Rock [address] [place] [address] PCP - General Family Medicine 07/04/15 documented as of this encounter
--- OUTSIDE RECORDS SUMMARY | 2024-06-12 14:42 | XMS_ITS | Encounter Summary ---
Author Organization [employer] Address 75 [facility] 7t [place] [address] Care Team Providers Care Bracelet And Brooch Maker Name Role Phone Name, Rock DE PAZ Primary Care Provider [phone] Encounter Details Date Type Department Care Team [...] Clinical Support [facility] MEDICINE [address] [place] [address] Corrie Chen RN documented as of this encounter Procedures Procedure Name Priority Date/Time Associated Diagnosis Comments T4, FREE Routine 05/22/2024 2:49 PM EST documented in this encounter Results * T4, Free (05/22/2024 2:49 PM EST) Free T4 (Free Thyroxine) 1.39 0.71 - 1.85 ng/dL [facility] 05/22/2024 2:49 PM EST 05/22/2024 2:49 PM EST us Generic External Data Provider LAB BLOOD ORDERAB LES Final Result [facility] [address] [place] [address] [phone] documented in this encounter Visit Diagnoses Not on filedocumented in this encounter Additional Health Concerns Assessment Noted Time PHQ-9 Depression Total Score: 17 025 2:50 PM EST documented as of this encounter Care Teams Bracelet And Brooch Maker Relationship Specialty Start Date End Date Name, MD Rock [address] [place] [address] PCP - General Family Medicine 07/04/15 documented as of this encounter
--- OUTSIDE RECORDS SUMMARY | 2024-06-12 14:42 | XMS_ITS | Encounter Summary ---
Author Organization [employer] Address 75 [facility] 7 [place] [address] Care Team Providers Care Pilates Coordinator Name Role Phone Name, Rock DE PAZ Primary Care Provider [phone] Reason for Visit * Reason Onset Date Comments Med Refill 06/04/2024 Encounter Details Date Type Department Care Team (Late st Contact Info) Description 06/04/2024 Refill [facility] MEDICINE 230 [place], [place] [phone] Cheyenne Finnegan DO [address] [place], [place] [phone] Insomnia, unspecified type; Hypophosphatemia Social History Tobacco Use Types Packs/Day [...] 1:00 PM EDT Clinical Support [facility] MEDICINE 230 [place] [address] Corrie Chen RN documented as of this encounter Visit Diagnoses Diagnosis Insomnia, unspecified type Hypophosphatemia Disorders of phosphorus metabolism documented in this encounter Additional Health Concerns Assessment Noted Time PHQ-9 Depression Total Score: 17 025 2:50 PM EST documented as of this encounter Care Teams Pilates Coordinator Relationship Specialty Start Date End Date Name, MD Rock [address] [place] [address] PCP - General Family Medicine 07/04/15 documented as of this encounter
--- OUTSIDE RECORDS SUMMARY | 2024-06-12 14:42 | XMS_ITS | Encounter Summary ---
Author Organization [employer] Address 75 [facility] 7 [place] [address] Care Team Providers Care Loft Worker Pile Driving Name Role Phone Name, Rock DE PAZ Primary Care Provider Reason for Visit * Reason Onset Date Comments Med Refill 01/17/2024 Encounter Details Date Type Department Care Team ([facility] st Contact Info) Description 01/17/2024 Telephone [facility] MEDICINE 230 [place], [place] [phone] Name, MD Rock [address] [place], [place] [phone] Med Refill Social History Tobacco Use Types [...] 10 [facility] documented in this encounter Plan of Treatment Upcoming Encounters Date Type Department Care Team (Late st Contact Info) Description 07/17/2024 1:00 PM EDT Clinical Support [facility] MEDICINE [address] [place] [address] Corrie Chen RN documented as of this encounter Visit Diagnoses Not on filedocumented in this encounter Additional Health Concerns Assessment Noted Time PHQ-9 Depression Total Score: 12 024 2:16 PM EDT documented as of this encounter Care Teams Loft Worker Pile Driving Relationship Specialty Start Date End Date Name, MD Rock [address] [place] [address] PCP - General Family Medicine 07/04/15 documented as of this encounter
--- OUTSIDE RECORDS SUMMARY | 2024-06-12 14:42 | XMS_ITS | Encounter Summary ---
Author Organization [facility] Address [address] [place] [address] Care Team Providers Care Dietary Supervisor Name Role Phone Name, Rock DE PAZ Primary Care Provider Unavailabl e Reynaldo Nascimento MD Primary Care Provider Unav ailReynaldo Garcia MD Primary Care Provider Unav ailable Deepali Santana MD Primary Care Provider [phone] Name, Rock DE PAZ Primary Care Provider Unavailabl e Encounter Details Date Type Department Care Team Description 11/12/2005 Hospital Medical Records [address] [place] [address] Arthur Cagle MD Social History Tobacco Use [...] on filedocumented in this encounter Care Teams Dietary Supervisor Relationship Specialty Start Date End Date Name, MD Rock PCP - General 10/10/10 05/20/15 Reynaldo Nascimento MD PCP - General 04/09/10 10/09/10 Reynaldo Nascimento MD PCP - General 03/02/01 04/08/10 Deepali Santana MD [address] [place] [address] PCP - General Internal Medicine 05/21/15 07/17/15 Name, MD Rock [address] [place] [address] PCP - General Internal Medicine 07/18/15 documented as of this encounter
--- OUTSIDE RECORDS SUMMARY | 2024-06-12 14:42 | XMS_ITS | Encounter Summary ---
Author Organization [employer] Address 75 [facility] 7t [place] [address] Care Team Providers Care X Ray Developer Name Role Phone Name, Rock DE PAZ Primary Care Provider Reason for Visit * Reason Comments Med Refill Encounter Details Date Type Department Care Team (Late st Contact Info) Description 04/26/2023 Refill [facility] MEDICINE [address] [place], [place] [phone] Name, MD Rock [address] [place], [place] [phone] Insomnia, unspecified type Social History Tobacco Use [...] Description 07/17/2024 1:00 PM EDT Clinical Support [facility] MEDICINE [address] [place] [address] Corrie Chen RN documented as of this encounter Visit Diagnoses Diagnosis Insomnia, unspecified type documented in this encounter Additional Health Concerns Assessment Noted Time PHQ-9 Depression Total Score: 21 023 10:14 AM EDT documented as of this encounter Care Teams X Ray Developer Relationship Specialty Start Date End Date Name, MD Rock [address] [place] [address] PCP - General Family Medicine 07/04/15 documented as of this encounter
--- OUTSIDE RECORDS SUMMARY | 2024-06-12 14:42 | XMS_ITS | Encounter Summary ---
Author Organization [facility] Address [address] [place] [address] Care Team Providers Care Brand Attendant Name Role Phone Name, Rock DE PAZ Primary Care Provider Unavailabl e Deepali Santana MD Primary Care Provider [phone] NameRock MD Primary Care Provider Unavailabl e Reason for Visit * Reason Onset Date Comments Prior Authorization 11/21/2012 Encounter Details Date Type Department Care Team Description 11/21/2012 Telephone Adult [address] [address] Rock Rodrigues MD Prior Authorization Social History Tobacco Use Types Packs/Day Years Used Date Smoking Tobacco: Former Cigarettes Q uit: 04/26/2004 Smokeless Tobacco: Former Comments:quit 2004 Alcohol Use Standard Drinks/Week Comments Yes 0 (1 standard drink = 0.6 oz pur e alcohol) socially Sex Assigned at Date Recorded Not on file documented as of this encounter Miscellaneous Notes * Telephone Encounter - Tiffanie Morales C.M.A. - 11/25/2012 1:34 PM EDT Message left for pt to call and make an appt. * Telephone Encounter - Rock Rodrigues MD - 11/25/2012 1:23 PM EDT Noted. I will not recommend any of this alternative until she is seen again. * Telephone Encounter - Tiffanie Morales C.M.A. - 11/25/2012 1:15 PM EDT P/A denied pt must try/fail 2 of the following zoloft, paxil, prozac before a P/A can be done. * Telephone Encounter - Nai Moyer - 11/25/2012 12:07 PM EDT Denial notice received * Telephone Encounter - Tiffanie Morales C.M.A. - 11/24/2012 2:59 PM EDT P/A faxed * Telephone Encounter - Tiffanie Morales C.M.A. - 11/22/2012 2:13 PM EDT P/A to Dr Rodrigues to sign * Telephone Encounter - Sepideh Dangelo - 11/21/2012 4:45 PM EDT Pre Authorization for Medication Does the patient already have this medication?YES Name of Medication Cymbalta Dose of Medication How does patient take this med? Takes 1 a day. What other dosage or similar medication have you tried in the past for this problem Patients current medical insurance [facility] What Prescription Plan does the patient have? Prescription Plan Tel # from back of prescription ID card [phone] What is the patients Prescription Plan ID #? [id number] What Pharmacy does the patient use? [facility] [place]: [place] Product Type: MEDICAID [id number] documented in this encounter Plan of Treatment Not on file documented as of this encounter Visit Diagnoses Not on filedocumented in this encounter Care Teams Brand Attendant Relationship Specialty Start Date End Date Name, MD Rock PCP - General 10/10/10 05/20/15 Deepali Santana MD [address] [place] [address] PCP - General Internal Medicine 05/21/15 07/17/15 Name, MD Rock [address] [place] [address] PCP - General Internal Medicine 07/18/15 documented as of this encounter
--- OUTSIDE RECORDS SUMMARY | 2024-06-12 14:42 | XMS_ITS | Encounter Summary ---
Author Organization [employer] Address 75 [facility] 7 [place] [address] Care Team Providers Care Cephalometric Analyst Name Role Phone Name, Rock DE PAZ Primary Care Provider Reason for Visit * Reason Onset Date Comments Med Refill 03/02/2024 Encounter Details Date Type Department Care Team (Late st Contact Info) Description 03/02/2024 Refill [facility] MEDICINE [address] [place], [place] [phone] Name, MD Rock [address] [place] [address] Social History Tobacco Use Types Packs/Day Years [...] [facility] MEDICINE [address] [place] [address] Corrie Chen, RN documented as of this encounter Visit Diagnoses Not on filedocumented in this encounter Additional Health Concerns Assessment Noted Time PHQ-9 Depression Total Score: 12 024 2:16 PM EDT documented as of this encounter Care Teams Cephalometric Analyst Relationship Specialty Start Date End Date Name, MD Rock [address] [place] [address] PCP - General Family Medicine 07/04/15 documented as of this encounter
--- OUTSIDE RECORDS SUMMARY | 2024-06-12 14:42 | XMS_ITS | Encounter Summary ---
Author Organization [employer] Address 75 [facility] 7 [place] [address] Care Team Providers Care [employer] Principal Name Role Phone Name, Rock DE PAZ Primary Care Provider [phone] Reason for Visit * Reason Onset Date Comments Med Refill 03/10/2024 Encounter Details Date Type Department Care Team ([facility] st Contact Info) Description 03/10/2024 Refill [facility] MEDICINE [address] [place], [place] [phone] Name, MD Rock [address] [place], [place] [phone] Insomnia, unspecified type Social History Tobacco Use [...] Description 07/17/2024 1:00 PM EDT Clinical Support [facility] MEDICINE [address] [place] [address] Corrie Chen, SCOUT documented as of this encounter Visit Diagnoses Diagnosis Insomnia, unspecified type documented in this encounter Additional Health Concerns Assessment Noted Time PHQ-9 Depression Total Score: 12 024 2:16 PM EDT documented as of this encounter Care Teams [employer] Principal Relationship Specialty Start Date End Date Name, MD Rock [address] [place] [address] PCP - General Family Medicine 07/04/15 documented as of this encounter
--- OUTSIDE RECORDS SUMMARY | 2024-06-12 14:42 | XMS_ITS | Encounter Summary ---
Author Organization [employer] Address 75 [facility] 7 [place] [address] Care Team Providers Care Timber Selector Name Role Phone Name, Rock DE PAZ Primary Care Provider [phone] Reason for Visit * Reason Onset Date Comments Med Refill 02/09/2024 Encounter Details Date Type Department Care Team (Late st Contact Info) Description 02/09/2024 Refill [facility] MEDICINE [address] [place], [place] [phone] Name, MD Rock [address] [place], [place] [phone] Insomnia, unspecified type Social History Tobacco Use [...] 1:00 PM EDT Clinical Support [facility] MEDICINE [address] [place] [address] Corrie Chen, SCOUT documented as of this encounter Visit Diagnoses Diagnosis Insomnia, unspecified type documented in this encounter Additional Health Concerns Assessment Noted Time PHQ-9 Depression Total Score: 12 024 2:16 PM EDT documented as of this encounter Care Teams Timber Selector Relationship Specialty Start Date End Date Name, MD Rock [address] [place] [address] PCP - General Family Medicine 07/04/15 documented as of this encounter
--- OUTSIDE RECORDS SUMMARY | 2024-06-12 14:42 | XMS_ITS | Encounter Summary ---
Author Organization [employer] Address 75 [facility] 7 [place] [address] Care Team Providers Care Emblem Drawer In Name Role Phone Name, Rock DE PAZ Primary Care Provider [phone] Reason for Visit * Reason Onset Date Comments Medication Question 05/31/2023 Encounter Details Date Type Department Care Team ([facility] st Contact Info) Description 05/31/2023 Telephone [facility] MEDICINE [address] [place] [phone] Name, MD Rock [address] [place], [place] [phone] Medication Question Social History Tobacco Use Types [...] a week . pt. Advised to call Cargo Services Coordinator because medication was prescribe by Cargo Services Coordinator. Pt. States varnish cooker also prescribe blood works before prescribing these medication, but as per pt. PCP is managing kidney related function and low phosphorus so want to discuss about these medication. Pt. Advised that message will be sent to PCP for review. Please review and advise. Tc from pt requesting to speak with provider in regards to two medications that are being offered by the Cargo Services Coordinator which are Pimwall which has to be injected every single day and Levaradi which is once a week . Pt would like to discuss this with PCP or nurse to verify if it's okay and which medication should she go for due to her medical History. Please contact pt @ [phone] * Telephone Encounter - Esperanza Bravo - 05/31/2023 2:02 PM EST Tc from pt requesting to speak with provider in regards to two medications that are being offered by the Cargo Services Coordinator which are Pimwall which has to be injected every single day and Levaradi whichis once a week . Pt would like to discuss this with PCP or nurse to verify if it's okay and which medication should she go for due to her medical History. Please contact pt @ [phone] documented in this encounter Plan of Treatment Upcoming Encounters Date Type Department Care Team ([facility] st Contact Info) Description 07/17/2024 1:00 PM EDT Clinical Support [facility] MEDICINE [address] [place] [address] Corrie Chen, SCOUT documented as of this encounter Visit Diagnoses Not on filedocumented in this encounter Additional Health Concerns Assessment Noted Time PHQ-9 Depression Total Score: 21 11/20/ 023 10:14 AM EDT documented as of this encounter Care Teams Emblem Drawer In Relationship Specialty Start Date End Date Name, MD Rock [address] [place] [address] PCP - General Family Medicine 07/04/15 documented as of this encounter
--- OUTSIDE RECORDS SUMMARY | 2024-06-12 14:42 | XMS_ITS | Encounter Summary ---
Author Organization [facility] Address [address] [place] [address] Care Team Providers Care Border Patrol Officer Name Role Phone NameRock MD Primary Care Provider Unavailabl e Deepali Santana MD Primary Care Provider [phone] Name, Rock DE PAZ Primary Care Provider Unavailabl e Encounter Details Date Type Department Care Team Description 06/13/2012 Release of Information Medical Records [address] [place] [address] Abstract, Provider Social History Tobacco Use Types [...] on filedocumented in this encounter Care Teams Border Patrol Officer Relationship Specialty Start Date End Date Rock Rodrigues MD PCP - General 10/10/10 05/20/15 Deepali Santana MD [address] [place] [address] PCP - General Internal Medicine 05/21/15 07/17/15 Rock Rodrigues MD [address] [place] [address] PCP - General Internal Medicine 07/18/15 documented as of this encounter
--- OUTSIDE RECORDS SUMMARY | 2024-06-12 14:42 | XMS_ITS | Encounter Summary ---
Author Organization [employer] Address 75 [facility] 7 [place] [address] Care Team Providers Care Lace Sewer Name Role Phone Name, Rock DE PAZ Primary Care Provider [phone] Reason for Visit * Reason Onset Date Comments Med Refill 05/20/2024 Encounter Details Date Type Department Care Team (Late st Contact Info) Description 05/20/2024 Refill [facility] MEDICINE [address] [place], [place] [phone] Name, MD Rock [address] [place], [place] [phone] Chronic pain syndrome Social History Tobacco Use [...] 1:00 PM EDT Clinical Support [facility] MEDICINE [address] [place] [address] Corrie Chen, SCOUT documented as of this encounter Visit Diagnoses Diagnosis Chronic pain syndrome documented in this encounter Additional Health Concerns Assessment Noted Time PHQ-9 Depression Total Score: 17 025 2:50 PM EST documented as of this encounter Care Teams Lace Sewer Relationship Specialty Start Date End Date Name, MD Rock [address] [place] [address] PCP - General Family Medicine 07/04/15 documented as of this encounter
--- OUTSIDE RECORDS SUMMARY | 2024-06-12 14:42 | XMS_ITS | Data Portability ---
Author Organization [place] - [employer] [facility], [facility], [facility] Address [address] [place] [address] Care Team Providers Care Boner Meat Name Role Phone RITA MICHEL Referring Provider [phone] Assessment No assessment recorded. Plan of Treatment Reminders Order Date Submit Date Provider Last Modified By Organization Details Last Modified Time Details Appointments None recorded. Lab None recorded. Referral None recorded. Procedures None recorded. Surgeries None recorded. Imaging None recorded. Medication Orders Augmentin 875 mg-125 mg tablet 2020 021 ISAK [id number], [address] [place], [address], 11:35:58 tramadol 50 mg tablet 2020 021 ISAK [id number], [address] [place], [address], 11:40:00 Patient TargetsNo targets recorded. Patient Instructions Encounter Date Encounter Id Patient Instructions Last Modified By Organization Details Last Modified Time 09/11/2020 [id number] Follow-up with PCP, or if can't get in with PCP, at the walk-in if no better or ER if any worse, or any red flag symptoms. Patient voiced understanding and agreement with treatment plan. [email or web address] Not available 09/11/2020 16:39:46 Reason for Referral None Reported. Problems Name Problem SNOMED Code Status Onset Date Resolution Date Notes Provider Name and Address Organization Details Recorded Time Hypercholes terolemia 62417681 Active 2020 Elissa clements [place] - [employer] [facility], [facility] 10:58:44 Insomnia 393549803 [facility] 11:06:37 Depressive disorder 66578091 Active 2020 Elissa clements [facility], [facility] 11:06:55 Anxiety 69098642 Active 2020 Elissa clements [facility], [facility] 11:07:11 Hyperthyroi dism 59010930 [facility] 2020 [facility] 11:07:58 Carcinoma of thyroid 329866641 Active 2020 [facility] 11:08:23 Acid reflux 780030105 Active 2020 [facility] 11:08:33 Gastroesoph ageal reflux disease 021674169 Active 2020 [facility] 11:09:08 History of back pain 9535844800201 02 [facility] Problem Notes None recorded. Medical Equipment None Reported. Allergies Allergen ID Allergen Name Allergen Category Reaction Reaction Severity Criticality Documentation Date Start Date Code Code System Note Provider Name and Address Organization Details Recorded Time 533492 Product containin g 3-hydroxy -3-methyl glutaryl- coenzyme A reductase inhibitor (product) medicatio n anaphylax is itching rash Not available Not available Not available Not available 09/11/2020 01148 009 [facility] 10:49:15 309691 Substance with sulfonami de structure and antibacte rial mechanism of action (substanc e) medicatio n itching rash Not available Not available Not available 09/11/2020 93536 8003 SN[facility]ED [facility] 10:49:15 Medications Name Sig Start Date [...] Address Organization Details Last Updated DateTime 1 176923. 09 g 39.2 kg/m2 170.18 cm 96.8 [degF] 82 /min 98 % 98 % 17 /min 124 mm[Hg] 80 mm[Hg] Elissa Loredo [facility] Physician [facility], [facility] 10:55:03 Social History Question Answer Notes LastModified by Organizat ion Details LastModified Time Tobacco Smoking Status Former Smoker Elissa clements [facility], [facility] 09/11/2020 10:49:15 How Much Tobacco Do You Chew? None [email or web address] Information not available 09/11/2020 Do You Or Have You Ever Used E-cigarettes Or Vape? Never Used Electronic Cigarettes [email or web address] Information not available 09/11/2020 Marital Status [email or web address] Informatio n not available 09/11/2020 Do You Or Have You Ever Used Smokeless Tobacco? Never Used Smokeless Tobacco [email or web address] Information not available 09/11/2020 How Much Tobacco Do You Smoke? No [email or web address] Information not available 09/11/2020 Sex: Unknown Functional Status None recorded. Mental Status None recorded. Family History Relationship Description Onset Age of this Age Resolved Age Notes LastModified by Organization Details LastModified Time Unspecified Relation Family history of malignant neoplasm [email or web address] Not available 09/11 10:59:06 Medical History Condition Response Cancer (location) Y Other N Gout N Thyroid Disease Y Kidney Stones N Arthralgia N Measles/Mumps N Emphysema/COPD N Sexually Transmitted Disease N Yeast Infection N Blood Clots N Depression Y Wheezing N Prostate Problems N Vascular Disease N Rash/Skin Condition N Amputation (location) N Parkinson's N Paralysis N Headaches/Migraines N Cardiac Pacemaker/defibrillator N Nerve Damage / Neuropathy N Arthritis N Sleep disorder/Insomnia Y Heart disease / Heart Attack N Artificial Joint N Crohn's Disease N HIV/AIDS N Shortness of Breath N Stroke/TIA N High Cholesterol Y Colon Problems N Serious Injuries N Dialysis N Kidney Disease [...] SNOMED-CT Code Diagnosis ICD10 Code Diagnosis Note [id number] MD [facility] [address] [place] [id number] 09/11/2020 10:30:20 09/11/2020 11:53:48 Acute periodontal abscess [id number] K05.219 Acute. Initial Encounter. Not controlled . Will add Augmentin 875-125 BID x 10 days. (No CKD per pt) Continue Clindamyci n as directed. She is taking probiotics already. Discussed new medication , possible side effects, and risk of CDiff with Clinda as well as other abx. Tramadol offers good pain control. I will send refill until she can f/u with PCP up [place]. She is encouraged to see a dentist in [place] prior to flying back next week. She will call Dr. Melo who she has seen previously . She may need to have this drained. Soft foods only. Tylenol/Mo addis for pain prn. every 6 hours. ER for acute changes Chronic back pain 959620 002 G89.29 Chronic, controlled with Tramadol, stable F/U with PCP up [place] [facility] Concerns Section Related Observation LastModified by Organization Detai ls LastModified Time None Recorded Concern Status LastModified by Organization Details LastModified Time None Recorded Advance Directives Directive None Recorded Payers Encounter Date Sequence Insurance Name Policy Number Policy Walls Covered Member ID Walls Member ID Guarantor Name 09/11/2020 1 [place] Coleen Polo [id number] Coleen Polo Notes Date Note Type [...] have you received? 2 doses Imported from [employer] on 09/11/2020 60yo F c/o left lower [...] an appointment to see a dentist in [place]. She denies fever/chills or other symptoms. Jennie Williamson MD [address] [address], [place], [address], [facility] - [facility], [facility] 09/11/2020 21:53:38 OBGyn Episode No OBEpisode recorded.
--- OUTSIDE RECORDS SUMMARY | 2024-06-12 14:42 | XMS_ITS | Encounter Summary ---
Author Organization [employer] Address [address] [facility] 7 [place] [address] Care Team Providers Care Editor Index Name Role Phone Name, Rock DE PAZ Primary Care Provider [phone] Reason for Visit * Reason Comments Med Refill Encounter Details Date Type Department Care Team (Late st Contact Info) Description 06/04/2024 Refill [facility] MEDICINE [address] [place], [place] [phone] Agnieszka Arvizu MD [address] [place] [address] Insomnia, unspecified type Social History Tobacco Use [...] 1:00 PM EDT Clinical Support [facility] MEDICINE [address] [place] [address] Corrie Chen, SCOUT documented as of this encounter Visit Diagnoses Diagnosis Insomnia, unspecified type documented in this encounter Additional Health Concerns Assessment Noted Time PHQ-9 Depression Total Score: 17 025 2:50 PM EST documented as of this encounter Care Teams Editor Index Relationship Specialty Start Date End Date Name, MD Rock [address] [place] [address] PCP - General Family Medicine 07/04/15 documented as of this encounter
--- OUTSIDE RECORDS SUMMARY | 2024-06-12 14:42 | XMS_ITS | Encounter Summary ---
Author Organization [employer] Address [address] [facility] 7 [place] [address] Care Team Providers Care Mini Bar Attendant Name Role Phone Name, Rock DE PAZ Primary Care Provider [phone] Reason for Visit * Reason Onset Date Comments Nurse Triage 04/27/2023 Encounter Details Date Type Department Care Team (Late st Contact Info) Description 04/27/2023 Telephone [facility] MEDICINE [address] [place] [address] [phone] Name, MD Rock [address] [place], [place] [phone] Nurse Triage Social History Tobacco Use Types [...] liquids. Pt is advised to come to [facility] today to be seen but, Pt reports a bad headache and doesn't want to drive. Pt is advised to come to [facility] in the morning and Pt agrees [...] caller accepted this outcome Please contact at [phone] documented in this encounter Plan of Treatment Upcoming Encounters Date Type Department Care Team (Late st Contact Info) Description 07/17/2024 1:00 PM EDT Clinical Support [facility] MEDICINE [address] [place] [address] Corrie Chen RN documented as of this encounter Visit Diagnoses Not on filedocumented in this encounter Additional Health Concerns Assessment Noted Time PHQ-9 Depression Total Score: 21 023 10:14 AM EDT documented as of this encounter Care Teams Mini Bar Attendant Relationship Specialty Start Date End Date Name, MD Rock [address] [place] [address] PCP - General Family Medicine 07/04/15 documented as of this encounter
--- OUTSIDE RECORDS SUMMARY | 2024-06-12 14:42 | XMS_ITS | Encounter Summary ---
Author Organization [employer] Address [address] [facility] 7 [place] [address] Care Team Providers Care Medical Driver Name Role Phone Name, Rock DE PAZ Primary Care Provider [phone] Reason for Visit * Reason Onset Date Comments Med Refill 03/02/2024 Encounter Details Date Type Department Care Team (Late st Contact Info) Description 03/02/2024 Refill [facility] MEDICINE [address] [place], [place] [phone] Name, MD Rock [address] [place] [address] Chronic pain syndrome Social History Tobacco Use [...] 07/17/2024 1:00 PM EDT Clinical Support [facility] MEDICINE [address] [place] [address] Corrie Chen, SCOUT documented as of this encounter Visit Diagnoses Diagnosis Chronic pain syndrome documented in this encounter Additional Health Concerns Assessment Noted Time PHQ-9 Depression Total Score: 12 024 2:16 PM EDT documented as of this encounter Care Teams Medical Driver Relationship Specialty Start Date End Date Name, MD Rock [address] [place] [address] PCP - General Family Medicine 07/04/15 documented as of this encounter
--- OUTSIDE RECORDS SUMMARY | 2024-06-12 14:43 | XMS_ITS | Clinical Summary ---
Author Organization [facility] Address [address] [place] [address] Care Team Providers Care Provider Relations Coordinator Name Role Phone Name, Rock DE PAZ Primary Care Provider Unavailabl e Allergies Active Allergy Reactions Severity Noted Date Comments Pravastatin 09/16/2012 Swelling and blisters of the hands, feet and face Sulfa Drugs 05/13/2005 Medications Medication Sig Dispensed Refills Start Date End Date Status Nhhzirn-Gdusclcle-Mc tamin D (CITRACAL CALCIUM+D) 600-40-500 MG-MG-UNIT TB24 Take 1 capsule by mouth 2 times daily. 0 Active ALBUTEROL SULFATE (PROAIR HFA) 108 (90 BASE) MCG/ACT Aero Soln Inhale 2 Puffs into the lungs 4 times daily as needed for Cough, Wheezing or Shortness of Breath. 1 Inhaler 5 09/05/2014 Active fluticasone (FLOVENT HFA) 110 MCG/ACT inhalerIndications:A sthmatic bronchitis, mild intermittent, with acute exacerbation Inhale 2 Puffs into the lungs 2 times daily. 1 Inhaler 5 09/05/2014 Active ibuprofen (ADVIL,MOTRIN) 800 MG tablet Take 1 Tab by mouth 3 times daily. 90 Tab 0 10/11/2014 Active Multiple Vitamins-Minerals (MULTI FOR HER 50+) Tab Take by mouth daily. 0 Active levothyroxine 125 MCG tablet Take 1 Tab by mouth daily. 30 Tab 11 01/07/2015 Active estradiol (ESTRACE VAGINAL) 0.1 MG/GM vaginal cream INSERT 1 GM VAGINALLY DAILY AT BEDTIME FOR TWO WEEKS, THEN USE 2 TO 3 TIMES WEEKLY THEREAFTER 43 g 2 01/08/2015 Active venlafaxine (EFFEXOR-XR) 150 MG 24 hr capsule Take 1 Cap by mouth daily. 30 Cap 11 01/15/2015 Active Zolpidem Tartrate (AMBIEN) 10 MG TabIndications:Insom shital Take 1 Tab by mouth at bedtime as needed for Insomnia. 28 Tab 0 05/03/2015 Active baclofen (LIORESAL) 20 MG tablet Take 1 Tab by mouth 3 times daily. 90 Tab 4 05/03/2015 Active tramadol (ULTRAM) 50 MG tabletIndications:Bi lateral low back pain with right-sided sciatica Take 1-2 Tabs by mouth 3 times daily as needed for Pain. 84 Tab 0 05/28/2015 Active fenofibrate (TRIGLIDE) 160 MG tabletIndications:Hy perlipidemia with target LDL less than 130 Take 1 Tab by mouth daily. 30 Tab 5 06/07/2015 Active omeprazole (PRILOSEC) 20 MG capsule TAKE TWO CAPSULES BY MOUTH ONCE DAILY 60 Cap 5 07/15/2015 Active Active Problems Problem Noted Date High cholesterol 09/05/2014 Allergy to statin medication 09/05/2014 Diverticulosis of colon (without mention of hemorrhage) 08/21/2014 Overview: Incidental finding at colonoscopy 08/21/2014. 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 S/p thyroidectomy and radiactive iodine History of thyroidectomy, total 10/01/19 12 Intramural leiomyoma of uterus 9 Lumbago 09/27/2007 Overview: Chronic - fractured coccyx at 9 years old Insomnia 09/27/2007 ANXIETY 11/12/2006 Resolved Problems Problem Noted Date Resolved Date Fibula fracture 07/29/2012 01/03/2014 Overview: Left spiral fracture 06/08, nondisplaced Lumbar facet arthropathy 05/23/2009 010 Morbid obesity 05/23/2009 01/03/2014 Abdominal pain, generalized 10/28/200610/24 Immunizations Name Administration Dates Next Due Influenza (> 6 Months) 01/07/2015,2012,01/11/2012, 009 Influenza H1N1 Pandemic Flu Vaccine 04/03/2009 Tdap 10/02/2008 Family History Medical History Relation Name Comments Hypertension Father skin ca[other] Father CA Breast Maternal Grandmother age 52 CA Breast Mother skin ca[other] Mother hypothyroid thyroid cancer[other] Mother's side CA Colon Negative Hx CA Ovarian Negative Hx Relation Name Status Comments Brother Alive Daughter 1 Alive Daughter 2 Alive Father Alive Maternal Grandmother breast cancer Mother Alive skin cancer, br [place] at age 73 Mother's side Social History Tobacco Use Types Packs/Day Years Used Date Smoking Tobacco: Former Cigarettes Q uit: 04/26/2004 Smokeless Tobacco: Former Comments:quit 2004 Alcohol Use Standard Drinks/Week Comments Yes 0 (1 standard drink = 0.6 oz pur e alcohol) socially Sex Assigned at Date Recorded Not on file Last Filed Vital Signs Vital Sign Reading Time Taken Comments Blood Pressure 108/72 05/28/2015 9:17 AM EST Pulse 60 05/28/2015 9:17 AM EST Temperature 36.6 ??C (97.9 ??F) 05/28/2015 9:17 AM ES T Respiratory Rate 12 05/28/2015 9:17 AM EST Oxygen Saturation 98% 08/21/2014 8:55 AM EDT Inhaled Oxygen Concentration - - Weight 90 kg (198 lb 8 oz) 05/28/2015 9:17 AM ES T Height 170.2 cm (5' 7 ) 05/28/2015 9:17 AM EST Body Mass Index 31.09 05/28/2015 9:17 AM EST Plan of Treatment Health Maintenance Due Date Last Done Comments Covid-19 Vaccine (#1) 1961 TOBACCO CHECK/ADVISE 1979 PNEUMOCOCCAL VACCINE FOR HIG H RISK PATIENTS (#1) 01/02/1980 SHINGLES VACCINE (1 of 2) 2011 BASELINE HEALTH EXAM 40-64 10/12/201410/12, 04/17/2011, 11/04/2010 MAMMOGRAM 03/05/2016 03/05/2015, 05/2013, 11/24/2011, Additional history exists CERVICAL CANCER SCREENING 01/03/20172013, 02/02/2012, 11/11/2010, Additional history exists DTAP/TDAP/TD (2 - Td or Tdap) 10/02/2018 10/02/2008 CHOLESTEROL SCREENING 05/28/2020 05/28/2015 , 09/05/2014, 05/08/2014, Additional history exists INFLUENZA (#1) 2023 01/07/2015, 04/26 (External Completion), 02/16/2013, Additional history exists BMI CHECK/ADVISE 04/26/2024 01/08/2015, , 01/03/2014 COLON CANCER SCREENING 08/21/2024 08/21/2014 HEPATITIS C SCREENING Completed 05/08/2014 , 05/25/2011, 07/22/2010 Care Teams Provider Relations Coordinator Relationship Specialty Start Date End Date Name, MD Rock PCP - General Internal Medicine 07/18/15
--- OUTSIDE RECORDS SUMMARY | 2024-06-12 14:43 | XMS_ITS | Encounter Summary ---
Author Organization [employer] Address [address] [facility] 7 [place] [address] Care Team Providers Care Polymer Chemist Name Role Phone Name, Rock DE PAZ Primary Care Provider [phone] Reason for Visit * Reason Onset Date Comments Med Refill 05/09/2024 Encounter Details Date Type Department Care Team (Late st Contact Info) Description 05/09/2024 Refill [facility] MEDICINE [address] [place], [place] [phone] Name, MD Rock [address] [place], [place] [phone] Rhinorrhea Social History Tobacco Use Types Packs/Day [...] Description 07/17/2024 1:00 PM EDT Clinical Support [facility] MEDICINE [address] [place] [address] Corrie Chen, SCOUT documented as of this encounter Visit Diagnoses Diagnosis Rhinorrhea Other diseases of nasal cavity and sinuses documented in this encounter Additional Health Concerns Assessment Noted Time PHQ-9 Depression Total Score: 12 024 2:16 PM EDT documented as of this encounter Care Teams Polymer Chemist Relationship Specialty Start Date End Date Name, MD Rock [address] [place] [address] PCP - General Family Medicine 07/04/15 documented as of this encounter
--- OUTSIDE RECORDS SUMMARY | 2024-06-12 14:43 | XMS_ITS | Encounter Summary ---
Author Organization [facility] Address [address] [place] [address] Care Team Providers Care Coating Supervisor Name Role Phone Name, Rock DE PAZ Primary Care Provider Unavailabl e Deepali Santana MD Primary Care Provider [phone] Name, Rock DE PAZ Primary Care Provider Unavailabl e Reason for Visit * Reason Onset Date Comments Special Procedure 11/02/2011 Colon Encounter Details Date Type Department Care Team Description 11/02/2011 Telephone Adult [address] [address] Name, MD Rock Special Procedure (Colon) Social [...] on filedocumented in this encounter Care Teams Coating Supervisor Relationship Specialty Start Date End Date Name, MD Rock PCP - General 10/10/10 05/20/15 Deepali Santana MD [address] [place] [address] PCP - General Internal Medicine 05/21/15 07/17/15 Name, MD Rock [address] [place] [address] PCP - General Internal Medicine 07/18/15 documented as of this encounter
--- OUTSIDE RECORDS SUMMARY | 2024-06-12 14:43 | XMS_ITS | Encounter Summary ---
Author Organization [facility] Address [address] [place] [address] Care Team Providers Care Java Scala Developer Name Role Phone Name, Rock DE PAZ Primary Care Provider Unavailabl e Deepali Santana MD Primary Care Provider [phone] Name, Rock DE PAZ Primary Care Provider Unavailabl e Encounter Details Date Type Department Care Team Description 07/02/2011 Hospital Medical Records [address] [place] [address] Cynthia Day MD Social History Tobacco Use [...] on filedocumented in this encounter Care Teams Java Scala Developer Relationship Specialty Start Date End Date Rock Rodrigues MD PCP - General 10/10/10 05/20/15 Deepali Santana MD [address] [place] [address] PCP - General Internal Medicine 05/21/15 07/17/15 Rock Rodrigues MD [address] [place] [address] PCP - General Internal Medicine 07/18/15 documented as of this encounter
--- OUTSIDE RECORDS SUMMARY | 2024-06-12 14:43 | XMS_ITS | Encounter Summary ---
Author Organization [employer] Address [address] [facility] 7 [place] [address] Care Team Providers Care Vp Medical Name Role Phone Name, Rock DE PAZ Primary Care Provider [phone] Reason for Visit * Reason Onset Date Comments Appointment Request 11/02/2022 Encounter Details Date Type Department Care Team ([facility] st Contact Info) Description 11/02/2022 Telephone [facility] MEDICINE [address] [place] [address] [phone] Name, MD Rock [address] [place], [place] [phone] Appointment Request Social History Tobacco Use Types [...] denied any urgent concerns. Please contact at [phone] documented in this encounter Plan of Treatment Upcoming Encounters Date Type Department Care Team (Late st Contact Info) Description 07/17/2024 1:00 PM EDT Clinical Support [facility] MEDICINE [address] [place] [address] Corrie Chen RN documented as of this encounter Visit Diagnoses Not on filedocumented in this encounter Care Teams Vp Medical Relationship Specialty Start Date End Date Name, MD Rock [address] [place] [address] PCP - General Family Medicine 07/04/15 documented as of this encounter
--- OUTSIDE RECORDS SUMMARY | 2024-06-12 14:43 | XMS_ITS | Encounter Summary ---
Author Organization [facility] Address [address] [place] [address] Care Team Providers Care Parish Visitor Name Role Phone Name, Rock DE PAZ Primary Care Provider Unavailabl e Deepali Santana MD Primary Care Provider [phone] Name, Rock DE PAZ Primary Care Provider Unavailabl e Encounter Details Date Type Department Care Team Description 06/10/2012 Loop Tender Report Medical Records [address] [place] [address] Rafael Burns PA-C Social History Tobacco Use [...] on filedocumented in this encounter Care Teams Parish Visitor Relationship Specialty Start Date End Date Rock Rodrigues MD PCP - General 10/10/10 05/20/15 Deepali Santana MD [address] [place] [address] PCP - General Internal Medicine 05/21/15 07/17/15 Rock Rodrigues MD [address] [place] [address] PCP - General Internal Medicine 07/18/15 documented as of this encounter
--- OUTSIDE RECORDS SUMMARY | 2024-06-12 14:43 | XMS_ITS | Encounter Summary ---
Author Organization [facility] Address [address] [place] [address] Care Team Providers Care Machine Slat Basket Maker Name Role Phone Name, Rock DE PAZ Primary Care Provider Unavailabl e Deepali Santana MD Primary Care Provider [phone] Name, Rock DE PAZ Primary Care Provider Unavailabl e Encounter Details Date Type Department Care Team Description 09/08/2011 Hospital Medical Records [address] [place] [address] Saira Avitia Social History Tobacco Use Types [...] on filedocumented in this encounter Care Teams Machine Slat Basket Maker Relationship Specialty Start Date End Date Rock Rodrigues MD PCP - General 10/10/10 05/20/15 Deepali Santana MD [address] [place] [address] PCP - General Internal Medicine 05/21/15 07/17/15 Rock Rodrigues MD [address] [place] [address] PCP - General Internal Medicine 07/18/15 documented as of this encounter
--- OUTSIDE RECORDS SUMMARY | 2024-06-12 14:43 | XMS_ITS | Encounter Summary ---
Author Organization [facility] Address [address] [place] [address] Care Team Providers Care District Customs Director Name Role Phone Name, Rock DE PAZ Primary Care Provider Unavailabl e Encounter Details Date Type Department Care Team Description 03/27/2016 Release of Information Medical Records [address] [place] [address] Abstract, Provider Social History Tobacco Use Types [...] on filedocumented in this encounter Care Teams District Customs Director Relationship Specialty Start Date End Date Name, MD Rock PCP - General Internal Medicine 07/18/15 documented as of this encounter
--- OUTSIDE RECORDS SUMMARY | 2024-06-12 14:43 | XMS_ITS | Encounter Summary ---
Author Organization [facility] Address [address] [place] [address] Care Team Providers Care Vice President Quality Assurance Name Role Phone Name, Rock DE PAZ Primary Care Provider Unavailabl e Deepali Santana MD Primary Care Provider [phone] Name, Rock DE PAZ Primary Care Provider Unavailabl e Reason for Visit * Reason Onset Date Comments Provider Call Back 04/30/2015 Encounter Details Date Type Department Care Team Description 04/30/2015 Telephone Adult [address] [address] Name, MD Rock Provider Call Back Social History Tobacco Use Types Packs/Day Years Used Date Smoking Tobacco: Former Cigarettes Q uit: 04/26/2004 Smokeless Tobacco: Former Comments:quit 2004 Alcohol Use Standard Drinks/Week Comments Yes 0 (1 standard drink = 0.6 oz pur e alcohol) socially Sex Assigned at Date Recorded Not on file documented as of this encounter Miscellaneous Notes * Telephone Encounter - Cathleen Laird - 05/08/2015 9:39 AM EST Spoke to patient. She said she is hoping to follow Dr Marcano but is not sure. [facility] * Telephone Encounter - Evelyn Rosenberg M.A. - 05/08/2015 8:56 AM EST Please call pt and inform her that he is no longer here and find out if she is following him or choosing a new pcp at [facility]. * Telephone Encounter - Isra Baig - 05/07/2015 2:01 PM EST No because she called while he was still here. * Telephone Encounter - Evelyn Rosenberg M.A. - 05/06/2015 4:[address] Marcano is no longer associated with this practice. Did you inform pt and see if she is changing providers or following Dr Marcano? * Telephone Encounter - Isra Baig - 04/30/2015 3:00 PM EST Caller requesting call back from provider: Is the caller the patient? YES If caller is not the patient, what is the callers name? N/A Callers relationship to patient? N/A If person calling is not the patient themselves, is there a verbal release in FYI or permanent comments for this person: NO Reason for call back: PATIENT IS CALLING IN DUE TO FORGETTING TO SPEAK WITH DR. MARCANO ABOUT APPLYINGFOR DISABILITY. SHE IS GOING TO BE APPLYING FOR DISABILITY. SO HE WILL BE GETTING INFORMATION ABOUTTHIS. Caller offered to speak with the nurse for assistance: YES Response: Patient offered to speak with nurse to assist them: refused offer documented in this encounter Plan of Treatment Not on file documented as of this encounter Visit Diagnoses Not on filedocumented in this encounter Care Teams Vice President Quality Assurance Relationship Specialty Start Date End Date Rock Marcano MD PCP - General 10/10/10 05/20/15 Deepali Santana MD [address] [place] [address] PCP - General Internal Medicine 05/21/15 07/17/15 Rock Marcano MD [address] [place] [address] [place] [address] PCP - General Internal Medicine 07/18/15 documented as of this encounter
--- OUTSIDE RECORDS SUMMARY | 2024-06-12 14:43 | XMS_ITS | Encounter Summary ---
Author Organization [employer] Address 75 [facility] 7 [place] [address] Care Team Providers Care Educational Institution Curator Name Role Phone Name, Rock DE PAZ Primary Care Provider [phone] Reason for Visit * Reason Comments Med Refill Encounter Details Date Type Department Care Team (Late st Contact Info) Description 11/26/2022 Refill [facility] MEDICINE [address] [place], [place] [phone] Name, MD Rock [address] [place] [address] Chronic pain syndrome Social History Tobacco Use [...] Description 07/17/2024 1:00 PM EDT Clinical Support [facility] [address] [place] [address] Corrie Chen, RN documented as of this encounter Visit Diagnoses Diagnosis Chronic pain syndrome documented in this encounter Additional Health Concerns Assessment Noted Time PHQ-9 Depression Total Score: 21 11/20/ 023 10:14 AM EDT documented as of this encounter Care Teams Educational Institution Curator Relationship Specialty Start Date End Date Name, MD Rock [address] [place] [address] PCP - General Family Medicine 07/04/15 documented as of this encounter
--- OUTSIDE RECORDS SUMMARY | 2024-06-12 14:43 | XMS_ITS | Encounter Summary ---
Author Organization [employer] Address 75 [facility] 7 [place] [address] Care Team Providers Care Oil Heater Installer Name Role Phone Name, Rock DE PAZ Primary Care Provider [phone] Reason for Visit * Reason Comments Med Refill Encounter Details Date Type Department Care Team (Late st Contact Info) Description 11/20/2022 Refill [facility] MEDICINE [address] [place] [address] Fany Pearson MD [address] [place] [address] Chronic pain syndrome; Insomnia, unspecified type Social [...] [facility] [address] [place] [address] Corrie Chen RN documented as of this encounter Visit Diagnoses Diagnosis Chronic pain syndrome Insomnia, unspecified type documented in this encounter Additional Health Concerns Assessment Noted Time PHQ-9 Depression Total Score: 21 023 10:14 AM EDT documented as of this encounter Care Teams Oil Heater Installer Relationship Specialty Start Date End Date Name, MD Rock [address] [place] [address] PCP - General Family Medicine 07/04/15 documented as of this encounter
--- OUTSIDE RECORDS SUMMARY | 2024-06-12 14:43 | XMS_ITS | Encounter Summary ---
Author Organization [email or web address] Address 75 [facility] 7 [place] [address] Care Team Providers Care Hydraulic Design Engineer Name Role Phone Name, Rock DE PAZ Primary Care Provider Reason for Visit * Reason Comments Med Refill Encounter Details Date Type Department Care Team (Late st Contact Info) Description 11/23/2022 Refill [facility] MEDICINE [address] [place] [address] Fany Pearson MD [address] [place] [address] Chronic pain syndrome; Insomnia, unspecified type Social [...] Clinical Support [facility] [address] [place] [address] Corrie Chen RN documented as of this encounter Visit Diagnoses Diagnosis Chronic pain syndrome Insomnia, unspecified type documented in this encounter Additional Health Concerns Assessment Noted Time PHQ-9 Depression Total Score: 21 023 10:14 AM EDT documented as of this encounter Care Teams Hydraulic Design Engineer Relationship Specialty Start Date End Date Name, MD Rock [address] [place] [address] PCP - General Family Medicine 07/04/15 documented as of this encounter
--- OUTSIDE RECORDS SUMMARY | 2024-06-12 14:43 | XMS_ITS | Encounter Summary ---
Author Organization [facility] Address [address] [place] [address] Care Team Providers Care Crystal Report Developer Name Role Phone NameRock MD Primary Care Provider Unavailabl e Deepali Santana MD Primary Care Provider Name, Rock DE PAZ Primary Care Provider Unavailabl e Encounter Details Date Type Department Care Team Description 07/16/2011 Hub Inventory Specialist Report Medical Records [address] [place] [address] Akshat Gallagher Social History Tobacco Use Types [...] on filedocumented in this encounter Care Teams Crystal Report Developer Relationship Specialty Start Date End Date Rock Rodrigues MD PCP - General 10/10/10 05/20/15 Deepali Santana MD [address] [place] [address] PCP - General Internal Medicine 05/21/15 07/17/15 Rock Rodrigues MD [address] [place] [address] PCP - General Internal Medicine 07/18/15 documented as of this encounter
--- OUTSIDE RECORDS SUMMARY | 2024-06-12 14:43 | XMS_ITS | Encounter Summary ---
Author Organization [employer] Address [address] [facility] 7 [place] [address] Care Team Providers Care Oil Agent Name Role Phone Name, Rock DE PAZ Primary Care Provider [phone] Reason for Visit * Reason Onset Date Comments Med Refill 05/08/2024 Encounter Details Date Type Department Care Team (Late st Contact Info) Description 05/08/2024 Refill [facility] MEDICINE [address] [place], [place] [phone] Name, MD Rock [address] [place], [place] [phone] Chronic pain syndrome; Insomnia, unspecified type Social [...] Description 07/17/2024 1:00 PM EDT Clinical Support [facility] MED[facility] [address] [place] [address] Corrie Chen, RN documented as of this encounter Visit Diagnoses Diagnosis Chronic pain syndrome Insomnia, unspecified type documented in this encounter Additional Health Concerns Assessment Noted Time PHQ-9 Depression Total Score: 12 024 2:16 PM EDT documented as of this encounter Care Teams Oil Agent Relationship Specialty Start Date End Date Name, MD Rock [address] [place] [address] PCP - General Family Medicine 07/04/15 documented as of this encounter
--- OUTSIDE RECORDS SUMMARY | 2024-06-12 14:43 | XMS_ITS | Encounter Summary ---
Author Organization [employer] Address 75 [facility] 7 [place] [address] Care Team Providers Care Engravings Polisher Name Role Phone Name, Rock DE PAZ Primary Care Provider [phone] Reason for Visit * Reason Comments Cough Encounter Details Date Type Department Care Team ([facility] st Contact Info) Description 05/17/2024 2:00 PM EST Office Visit [facility] MEDICINE [address] [place] [phone] Name, MD Rock [address] [place], [place] [phone] Cough, unspecified type (Primary Dx); Wheezing; History [...] HCTZ daily. She denies the use of [id number] decongestant. She does not check her blood [...] Negative, Indeterminate Negative QC Media Lot # [id number] Rapid COVID Ag Negative Assessment/Plan Diagnoses and [...] She is due to recheck BMP at [facility] next week. Other orders - hydroCHLOROthiazide (HYDRODiuril) [...] Description 07/17/2024 1:00 PM EDT Clinical Support [address] [address] Corrie Chen RN documented as of this [...] COVID Ag Negative QC Media Lot # [id number] Lot# Expiration Date Swab 05/17/2024 3:33 PM EST Rock Rodrigues MD POINT OF CARE TEST ENTER/EDIT OR DERABLES Final Result * POCT Rapid Influenza B OSOM (05/17/2024 3:32 PM EST) Pathologist [facility] Rapid Influenza B Ag Negative Negative, Indeterminate QC Media Lot # [id number] Lot# Expiration Date Swab 05/17/2024 3:32 PM EST Rock Rodrigues MD POINT OF CARE TEST ENTER/EDIT OR DERABLES Final Result * POCT Rapid Influenza A OSOM (05/17/2024 3:32 PM EST) [facility] Rapid Influenza A Ag Negative Negative, Indeterminate QC Media Lot # [id number] Lot# Expiration Date Swab Nasopharyngeal structure / [...] documented as of this encounter Care Teams Engravings Polisher Relationship Specialty Start Date End Date Name, MD Rock [address] [place] [address] PCP - General Family Medicine 07/04/15 documented as of this encounter
--- OUTSIDE RECORDS SUMMARY | 2024-06-12 14:43 | XMS_ITS | Encounter Summary ---
Author Organization [employer] Address 75 [facility] 7 [place] [address] Care Team Providers Care Trucker Hand Name Role Phone Name, Rock DE PAZ Primary Care Provider [phone] Reason for Visit * Reason Comments Med Refill Encounter Details Date Type Department Care Team (Late st Contact Info) Description 11/18/2022 Refill [facility] MEDICINE [address] [place], [place] [phone] Name, MD Rock [address] [place] [address] Chronic pain syndrome Social History Tobacco Use [...] Description 07/17/2024 1:00 PM EDT Clinical Support [facility] MEDICINE [address] [place] [address] Corrie Chen, RN documented as of this encounter Visit Diagnoses Diagnosis Chronic pain syndrome documented in this encounter Care Teams Trucker Hand Relationship Specialty Start Date End Date Name, MD Rock [address] [place] [address] PCP - General Family Medicine 07/04/15 documented as of this encounter
--- OUTSIDE RECORDS SUMMARY | 2024-06-12 14:43 | XMS_ITS | Encounter Summary ---
Author Organization [facility] Address [address] [place] [address] Care Team Providers Care Fur Repairer Name Role Phone NameRock MD Primary Care Provider Unavailabl e Deepali Santana MD Primary Care Provider [phone] Name, Rock DE PAZ Primary Care Provider Unavailabl e Encounter Details Date Type Department Care Team Description 09/24/2011 Can Closing Machine Tender Report Medical Records [address] [place] [address] Akshat Gallagher Social History Tobacco Use Types [...] on filedocumented in this encounter Care Teams Fur Repairer Relationship Specialty Start Date End Date Rock Rodrigues MD PCP - General 10/10/10 05/20/15 Deepali Santana MD [address] [place] [address] PCP - General Internal Medicine 05/21/15 07/17/15 Rock Rodrigues MD [address] [place] [address] PCP - General Internal Medicine 07/18/15 documented as of this encounter
--- OUTSIDE RECORDS SUMMARY | 2024-06-12 14:43 | XMS_ITS | Encounter Summary ---
Author Organization [employer] Address 75 [facility] 7t [place] [address] Care Team Providers Care Business Office Coordinator Name Role Phone Name, Rock DE PAZ Primary Care Provider [phone] Encounter Details Date Type Department Care Team [...] Description 07/17/2024 1:00 PM EDT Clinical Support [facility] MED[facility]INE [address] [place] [address] Corrie Chen, RN documented as of this encounter Visit Diagnoses Not on filedocumented in this encounter Additional Health Concerns Assessment Noted Time PHQ-9 Depression Total Score: 17 025 2:50 PM EST documented as of this encounter Care Teams Business Office Coordinator Relationship Specialty Start Date End Date Name, MD Rock [address] [place] [address] PCP - General Family Medicine 07/04/15 documented as of this encounter
--- OUTSIDE RECORDS SUMMARY | 2024-06-12 14:43 | XMS_ITS | Encounter Summary ---
Author Organization [employer] Address [address] [place] [address] Care Team Providers Care Substation Operator Transforming Name Role Phone Name, Rock DE PAZ Primary Care Provider [phone] Reason for Visit * Reason Comments Med Refill Encounter Details Date Type Department Care Team ([facility] st Contact Info) Description 03/04/[address] [facility] MEDICINE [address] [place] [address] Christine Doe, QUENTIN [address] [place] [address] Dept [place] [address] Social History Tobacco Use Types Packs/Day Years [...] [facility] [address] [place] [address] Corrie Chen RN documented as of this encounter Visit Diagnoses Not on filedocumented in this encounter Additional Health Concerns Assessment Noted Time PHQ-9 Depression Total Score: 21 023 10:14 AM EDT documented as of this encounter Care Teams Substation Operator Transforming Relationship Specialty Start Date End Date Name, MD Rock [address] [place] [address] PCP - General Family Medicine 07/04/15 documented as of this encounter
--- OUTSIDE RECORDS SUMMARY | 2024-06-12 14:43 | XMS_ITS | Encounter Summary ---
Author Organization [facility] Address [address] [place] [address] Care Team Providers Care Sound Recordist Name Role Phone Name, Rock DE PAZ Primary Care Provider Unavailabl e Deepali Santana MD Primary Care Provider [phone] Name, Rock DE PAZ Primary Care Provider Unavailabl e Encounter Details Date Type Department Care Team Description 07/02/2011 Machine Tech Report Medical Records [address] [place] [address] Cynthia Day MD Social History Tobacco Use [...] on filedocumented in this encounter Care Teams Sound Recordist Relationship Specialty Start Date End Date Rock Rodrigues MD PCP - General 10/10/10 05/20/15 Deepali Santana MD [address] [place] [address] PCP - General Internal Medicine 05/21/15 07/17/15 Rock Rodrigues MD [address] [place] [address] PCP - General Internal Medicine 07/18/15 documented as of this encounter
--- OUTSIDE RECORDS SUMMARY | 2024-06-12 14:43 | XMS_ITS | Encounter Summary ---
Author Organization [employer] Address 75 [facility] 7 [place] [address] Care Team Providers Care Newspaper Editor Managing Name Role Phone Name, Rock DE PAZ Primary Care Provider [phone] Reason for Visit * Reason Onset Date Comments Med Refill 05/23/2024 Encounter Details Date Type Department Care Team (Late st Contact Info) Description 05/23/2024 Refill [facility] MEDICINE [address] [place], [place] [phone] Name, MD Rock [address] [place], [place] [phone] Chronic pain syndrome (Primary Dx) Social History Tobacco Use Types Packs/Day Years [...] 1:00 PM EDT Clinical Support [facility] MEDICINE [address] [place] [address] Corrie Chen RN documented as of this encounter Visit Diagnoses Diagnosis Chronic pain syndrome- Primary documented in this encounter Additional Health Concerns Assessment Noted Time PHQ-9 Depression Total Score: 17 025 2:50 PM EST documented as of this encounter Care Teams Newspaper Editor Managing Relationship Specialty Start Date End Date Name, MD Rock [address] [place] [address] PCP - General Family Medicine 07/04/15 documented as of this encounter
--- OUTSIDE RECORDS SUMMARY | 2024-06-12 14:43 | XMS_ITS | Encounter Summary ---
Author Organization [employer] Address 75 [facility] 7 [place] [address] Care Team Providers Care Catalogue Compiler Name Role Phone Name, Rock DE PAZ Primary Care Provider [phone] Reason for Visit * Reason Onset Date Comments Med Refill 05/08/2024 Encounter Details Date Type Department Care Team ([facility] st Contact Info) Description 05/08/2024 Refill [facility] [address] [place] [address] Name, MD Rock [address] [place] [address] Rhinorrhea Social History Tobacco Use Types Packs/Day [...] Description 07/17/2024 1:00 PM EDT Clinical Support [facility] MEDICINE [address] [place] [address] Corrie Chen, SCOUT documented as of this encounter Visit Diagnoses Diagnosis Rhinorrhea Other diseases of nasal cavity and sinuses documented in this encounter Additional Health Concerns Assessment Noted Time PHQ-9 Depression Total Score: 12 024 2:16 PM EDT documented as of this encounter Care Teams Catalogue Compiler Relationship Specialty Start Date End Date Name, MD Rock [address] [place] [address] PCP - General Family Medicine 07/04/15 documented as of this encounter
== END 2024-06-12 14:40 | disposition home or self-care (01) ==
LOC: HO.US 14:39
PROVIDERS: PCP Internal Medicine Geriatric Medicine; Visit Provider Student in an Organized Health Care Education/Training Program
DX: E03.9 Hypothyroidism, unspecified (principal); Z85.850 Personal history of malignant neoplasm of thyroid
CPT/HCPCS: 76536

== ENCOUNTER → 2024-06-12 14:41 | Outpatient (BNV) | payer MEDICARE, MEDICAID, SELFPAY | PROVIDERS: PCP Internal Medicine Geriatric Medicine; Visit Provider Radiology Diagnostic Radiology | DX: E03.9 Hypothyroidism, unspecified (principal); Z85.850 Personal history of malignant neoplasm of thyroid | CPT/HCPCS: 76536 ==

== ENCOUNTER 2024-07-03 13:19 | Outpatient (AMB) | payer MEDICARE, MEDICAID, SELFPAY ==
--- NOTE | 2024-07-03 13:23 | MHC.OFFVIS ---
Vital Signs 07/03/24 13:25 Height 5 ft 7 in Weight 187 lb 13.341 oz BMI 29.4 BP 100/78 Pulse 67 Pulse Source Pulse Oximeter Temp 100 F Pulse Oximetry (%) 100 Oxygen Delivery Method Room Air Intake Visit Reasons: Thyroid cancer Intake Note: Patient present today for Thyroid cancer. Allergies pravastatin Allergy (Severe, Verified 07/03/24 13:25) Blister Sulfa (Sulfonamide Antibiotics) Allergy (Severe, Verified 07/03/24 13:25) Itching Medication List - Last Reconciled 07/03/24 by Adeola Russ MD acetaminophen (Tylenol Extra Strength) 1,000 mg PO DAILY PRN albuterol sulfate 90 mcg/actuation 2 puffs PO Q4-6H PRN bisacodyl (Dulcolax (bisacodyl)) 10 mg (2 x 5 mg) PO BEDTIME buspirone 30 mg PO BID carisoprodol 350 mg PO QID diclofenac sodium 1% 1 ea topical BID PRN docusate sodium 100 mg PO BEDTIME ezetimibe 10 mg PO DAILY fluticasone propionate 50 mcg/actuation 1 spray intranasal DAILY hydrochlorothiazide 12.5 mg PO DAILY levothyroxine 112 mcg PO DAILY loratadine 10 mg PO DAILY ondansetron 4 mg PO Q8H PRN oxcarbazepine 150 mg PO BID romosozumab-aqqg (Evenity) 210 mg (2.34 mL) subcut .q month sucralfate 1 g PO BEDTIME tramadol 50 mg PO DAILY PRN venlafaxine ER 75 mg PO BEDTIME venlafaxine ER 150 mg PO BEDTIME zoledronic wqlk-qinmwbty-hrayt 5 mg/100 mL (Reclast) ea IV zolpidem 10 mg PO BEDTIME PRN HPI Comments Details: 64 YO Female with a PMHx of thyroid cancer s/p total thyroidectomy in 06/[address] 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 pT1b Nx, AJCC stage I, JOSE initial low risk of recurrence Status post remnant ablation 08/2011 with I 131, Currently JOSE excellent response to therapy. who is seen in F/U for a history of thyroid cancer. She also follows at our practice for osteoporosis with Dr. Perez. Last visit was 05/18/2024. This was not addressed today. History of PTC in detail 06/2011: Total thyroidectomy with Dr. 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 pT1b Nx, AJCC stage I, JOSE initial low risk of recurrence 08/2011: remnant radioactive iodine ablation 12/24/2014: Ultrasound neck without any abnormal lymphadenopathy 08/2016: Ultrasound neck without any abnormal lymphadenopathy [facility] records show that her thyroglobulin remained undetectable with negative TG antibody Subsequently she was lost to follow up. In 2020 she established care at [facility] endocrinology practice. 01/14/2021 : ultrasound head and neck without any abnormal lymphadenopathy 02/16/2024: TSH 0.09, free T4 1.28, thyroglobulin 0.1, TG antibody less than 1 Levothyroxine decreased from 137 mcg to 125 mcg after January results Interval history 05/22/2024: TSH 0.28, free T4 1.39, thyroglobulin less than 0.1, TG antibody undetectable 05/23/2024: Levothyroxine decreased from 125 mcg to 112 mcg daily, Good adherence and administration 06/13/2024: Ultrasound of the neck showed normal-appearing lymph nodes, I reviewed the images myself Reports difficulty swallowing has improved . Is on meds for constipation. Weight stable . Reports anxiety and palpitations that are chronic. Denies tremors. Reports hair loss. Denies having ever used lithium, amiodarone or biotin supplements. Mother had Graves disease Maternal aunt : thyroid cancer Physical exam General: sitting comfortably in no acute distress HEENT: normocephalic/atraumatic Neck: supple, symmetrical Cardiac: normal heart sounds Pulm: normal breath sounds B/L, no added breath sounds Abd: not distended, no tenderness Extremities: no edema, no signs of myxedema Laboratory Tests 11/20/20 10/01/21 05/04/22 12:24 11:43 14:30 TSH 1.66 0.07 L 3.46 Free T4 1.06 1.25 1.14 Thyroglobulin <0.1 L <0.1 L Thyroglobulin Antibody <1 <1 09/29/22 05/18/23 09/29/23 12:05 12:25 12:14 TSH 3.07 0.59 0.24 L Free T4 1.04 1.40 1.28 Thyroglobulin <0.1 Thyroglobulin Antibody <1 12/07/23 02/16/24 11:55 13:52 TSH 0.21 L 0.09 L Free T4 1.33 1.28 Thyroglobulin 0.1 H Thyroglobulin Antibody <1 Laboratory Tests 02/16/24 05/22/24 13:52 14:49 TSH 0.09 L 0.28 L Free T4 1.28 1.39 Thyroglobulin 0.1 H <0.1 Thyroglobulin Antibody <1 <1 US Neck 06/13/24 CLINICAL HISTORY: Z85.850 - Personal history of malignant neoplasm of thyroid Soft tissue neck ultrasound Comparison: None provided. There is reportedly a prior ultrasound from 2020. An addendum can be provided if the images and/or report is submitted for review. Findings: Grayscale and color Doppler images were obtained with a high-frequency linear transducer of the thyroidectomy bed and cervical lymph nodes. There is abnormality within the thyroidectomy bed. There is a right level IB lymph node measuring 0.4 x 0.3 x 0.3 cm with normal morphology. There is a right level II lymph node measuring 0.9 x 0.5 x 1.2 cm with normal morphology. There is a left level III lymph node measuring 0.6 x 0.3 x 0.6 cm with question of a diminished hilum. This lymph node was seen on prior study, again an addendum can be provided if the prior study is submitted for review. There is left level III lymph node measuring 0.8 x 0.4 x 0.8 cm with normal morphology. Impression: Status post thyroidectomy. No abnormality in the thyroidectomy bed. Normal size left III lymph node with question of a diminished hilum which may indicate abnormal morphology. Follow up as clinically indicated. This document has been electronically signed by: Cleo Sutton MD on 06/13/2024 17:29:32 US SOFT TISSUE NECK 01/14/21 CLINICAL INFORMATION: History of malignant neoplasm of thyroid gland. Thyroidectomy 10 years ago. COMPARISON: None TECHNIQUE: Ultrasound of the neck soft tissues is performed with high- frequency jain-scale imaging and color Doppler. Images were acquired at levels I through V of each neck. FINDINGS: Lymph nodes of normal size, morphology and echotexture are detected within the right and left neck. No lymphadenopathy. Within the right neck, the largest lymph nodes are 0.4 cm short axis dimension at level 1B and level 5B In the left neck, one of the largest lymph nodes is 0.3 cm short axis dimension at level 5B. No soft tissue mass or fluid collection. US/US soft tiss head and/or neck IMPRESSION: Normal lymph nodes are seen within the neck in this patient who has previously undergone thyroidectomy. There is no sonographic evidence of lymphadenopathy. [facility] Medical History (Updated 05/22/24 @ 13:54 by Adeola Russ MD) Pre-op evaluation BMI 33.0-33.9,adult Steatosis, liver GERD (gastroesophageal reflux disease) Kidney stones Seizures Anxiety Depression Hyperlipidemia Osteoporosis Renal calculi Vitamin D deficiency History of thyroid cancer Hypothyroidism Chronic back pain Insomnia Diarrhea Osteoarthritis Anxiety and depression C. difficile colitis Asthma Hernia Surgical History History of repair of hiatal hernia S/P gastric sleeve procedure H/O LEEP H/O lithotripsy History of hernia surgery H/O adenoidectomy History of tonsillectomy S/P panniculectomy H/O tubal ligation History of appendectomy H/O thyroidectomy Family History Mother Graves disease Social History Household Members: Family Housing: House Do you presently have visiting nurse or other home services: No Patient Tobacco Use Status: Former Tobacco user Cigarettes Per Day: 2 Years Smoked: 10 years service: No Current occupational status: unemployed Female Reproductive History Menstrual Age of Menarche: 14 Physical Exam Vital Signs: BMI result Body Mass Index 29.4 Assessment & Plan Assessment & Plan (1) History of thyroid cancer: Code(s): Z85.850 - Personal history of malignant neoplasm of thyroid Category: Medical Plan: 64 YO Female with a PMHx of thyroid cancer s/p total thyroidectomy in 06/[address] 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 pT1b Nx, AJCC stage I, JOSE initial low risk of recurrence Status post remnant ablation 08/2011 with I 131, Currently JOSE excellent response to therapy. who is seen in F/U for a history of thyroid cancer. Her TG levels have remained undetectable over the past few years, consistent with the excellent response to therapy. Last thyroid ultrasound done May 2024 also did not show any abnormal lymph nodes. We will plan to repeat a neck ultrasound in 1 year. Tumor markers last checked in April 2024. Next tumor markers would be due in April 2025. Back in April 2024, levothyroxine dose was adjusted from 125 mcg daily to 112 mcg daily. She is due for repeat labs now. Given excellent response to therapy goal TSH 0.5-2. Plan: -ordered TSH, free T4, to be done now -ordered ultrasound of the neck to be done in 1 year prior to follow up (MayJune 2025) -continue levothyroxine 112 mcg daily , we will let her know if dose needs to be adjusted after blood work has resulted -follow up in 1 year (2) Hypothyroidism: Code(s): E03.9 - Hypothyroidism, unspecified Category: Medical Qualifiers: Hypothyroidism type: postoperative Qualified Code(s): E89.0 - Postprocedural hypothyroidism Plan: Currently on levothyroxine 112 mcg daily. Goal TSH 0.5-2. Plan: -ordered TSH, free T4, to be done now -continue levothyroxine 112 mcg daily , we will let her know if dose needs to be adjusted after blood work has resulted Plan I spent 30 minutes in reviewing the record, seeing the patient and documenting in the medical record. Orders: Orders US soft tiss head and/or neck 1 Year Z85.850 - Personal history of malignant neoplasm of thyroid Medications: Discontinued romosozumab-aqqg (Evenity) last dose wed12-14-23 Discontinued Reason: Doctor's Order 210 mg (2.34 mL) subcut .q month 2.34 mL 11RF Patient Instructions: Do Blood work today, we will communicate results with the you over the phone and adjust your dose of levothyroxine if needed Follow up in 1 year in person Do ultrasound of the neck 3-4 weeks prior to your follow up appointment in 1 year, somebody we will call you to schedule this Coding Level of Care Code Est Pt Level 3 (67222) Diagnoses History of thyroid cancer Z85.850 Postoperative hypothyroidism E89.0 Hypothyroidism type: postoperative
[2024-07-03 13:25] VITALS: BP 100/78; PULSE 67; TEMP 37.7; O2SAT 100; BMI 29.4
--- OUTSIDE RECORDS SUMMARY | 2024-07-03 15:02 | XMS_ITS | Encounter Summary ---
Author Organization [employer] Address [address] [facility] 7t [place] [address] Care Team Providers Care Lighting Director Name Role Phone Name, Rock DE PAZ Primary Care Provider [phone] Encounter Details Date Type Department Care Team ([facility] st Contact Info) Description 05/20/2023 Telephone [facility] [address] [place], [place] [phone] Name, MD Rock [address] [place] [address] Social History Tobacco Use Types Packs/Day Years [...] Support [facility] [address] [place] [phone] Corrie Chen RN 09/06/2024 3:30 PM EDT Office Visit [facility] [address] [place] [phone] NameRock MD [address] [place] [phone] documented as of this encounter Visit Diagnoses Not on filedocumented in this encounter Additional Health Concerns Assessment Noted Time PHQ-9 Depression Total Score: 21 11/20/ 023 10:14 AM EDT documented as of this encounter Care Teams Lighting Director Relationship Specialty Start Date End Date Rock Rodrigues MD [address] [place] [phone] PCP - General Family Medicine 07/04/15 documented as of this encounter
--- OUTSIDE RECORDS SUMMARY | 2024-07-03 15:02 | XMS_ITS | Encounter Summary ---
Author Organization [employer] Address [address] [place] [address] 7 [place] [address] Care Team Providers Care Break And Load Operator Name Role Phone NameRock MD Primary Care Provider [phone] Encounter Details Date Type Department Care Team (Late Contact Info) Description 05/06/2022 Orders Only [address] [address] Karen Falk LPN Social History Tobacco Use [...] Description 07/17/2024 1:00 PM EDT Clinical Support [address] [address] Corrie Chen RN 09/06/2024 3:30 PM EDT Office Visit [address] [phone] Name, MD Rock [address] [place] [address], [place] [address] documented as of this encounter Visit Diagnoses Not on filedocumented in this encounter Care Teams Break And Load Operator Relationship Specialty Start Date End Date Name, MD Rock [address] [place] [address] PCP - General Family Medicine 07/04/15 documented as of this encounter
--- OUTSIDE RECORDS SUMMARY | 2024-07-03 15:02 | XMS_ITS | Encounter Summary ---
Author Organization [employer] Address [address] [facility] 7 [place] [address] Care Team Providers Care Design Chief Name Role Phone Name, Rock DE PAZ Primary Care Provider [phone] Reason for Visit * Reason Onset Date Comments Med Refill 04/27/2024 Encounter Details Date Type Department Care Team (Late st Contact Info) Description 04/27/2024 Refill [facility] [address] [place], [place] [phone] Name, MD Rock [address] [place], [place] [phone] Chronic pain syndrome Social History Tobacco Use [...] Description 07/17/2024 1:00 PM EDT Clinical Support [facility] [address] [place] [phone] Corrie Chen RN 09/06/2024 3:30 PM EDT Office Visit [facility] [address] [place] [phone] Name, MD Rock [address] [place] [phone] documented as of this encounter Visit Diagnoses Diagnosis Chronic pain syndrome documented in this encounter Additional Health Concerns Assessment Noted Time PHQ-9 Depression Total Score: 12 024 2:16 PM EDT documented as of this encounter Care Teams Design Chief Relationship Specialty Start Date End Date Name, MD Rock [address] [place] [phone] PCP - General Family Medicine 07/04/15 documented as of this encounter
--- OUTSIDE RECORDS SUMMARY | 2024-07-03 15:02 | XMS_ITS | Encounter Summary ---
Author Organization [employer] Address [address] [place] [address] 7 [place] [address] Care Team Providers Care Scanning Tech Name Role Phone Name, Rock DE PAZ Primary Care Provider [phone] Encounter Details Date Type Department Care Team (Late Contact Info) Description 04/30/2022 Orders Only [facility] [address] [place] [address] Cheyenne Sánchez LPN Social History Tobacco Use [...] Clinical Support [facility] [address] [place] [address] [phone] Corrie Chen RN 09/06/2024 3:30 PM EDT Office Visit [address] [phone] Rock Rodrigues MD [address] [place] [phone] documented as of this encounter Procedures Procedure [...] N Telopetide (NTx) 50 see note H [facility] Comment:Result Units: nM BCE /mM creatPremenopausal Females: 4 - 64 nM BCE/mM creatResults are primarily used for monitoring theresponse to therapy. A value within thepremenopausal range does not rule out osteoporosisnor the need for therapyUnits of Measure: nM BCE/mM creat CREATININE, RANDOM URINE 114 20 - 275 mg/dL [facility] Comment:THIS TEST WAS PERFOR MED AT:[facility] [place] [address]SGHBRCZCARMELITA WRIGHT MD,PHD 05/04/2022 3:06 PM EST 05/04/2022 3:22 PM EST [facility] External Provider LAB URI NE ORDERABLES Final Result Performing Organization Address [facility]/ZIP Co de Phone Number [facility] [address] [place] [phone] * Protein Electrophoresis and [place]/[employer] (05/04/2022 2:30 PM EST) Prot Elec - Total Protein 7.0 6.1 - 8.1 g/dL [facility] Prot Elec - Albumin 4.2 3.8 - 4.8 g/dL [facility] Prot Elec - Alpha1 0.3 0.2 - 0.3 g/dL [facility] Prot Elec - Alpha2 0.8 0.5 - 0.9 g/dL [facility] Prot Elec - Beta 1 0.6 0.4 - 0.6 g/dL [facility] Prot Elec - Beta 2 0.3 0.2 - 0.5 g/dL [facility] Prot Elec - Gamma 0.8 0.8 - 1.7 g/dL [facility] PES - Abn Protein Band 1 TNP [facility] PES-Abn Protein Band 2 TNP [facility] PES-Abn Protein Band 3 [facility] Prot Elec - Interpretation SEE NOTE [facility] Comment:Normal Electrophoret ic PatternTHIS TEST WAS PERFORMED AT:[employer] [address] ([address])[place] [address]EMXMYNANCY ADKINS MD 05/04/2022 2:30 PM EST 05/04/2022 2:33 PM EST [facility] External Provider LAB BLO OD ORDERABLES Final Result Performing Organization Address City/[facility] Co de Phone Number [facility] [address] [place] [phone] * Alkaline Phosphatase, Bone Specific (05/04/2022 2:30 PM EST) Alkaline Phosphatase, Bone Specific 11.6 5.6 - 29.0 mcg/L [facility] Comment:Reference Range, Pre menopausal (mcg/L) 35-45 years 5.0-18.2THIS TEST WAS PERFORMED AT:[employer] [place] [address]GGOFAOPCARMELITA WRIGHT MD,PHD 05/04/2022 2:30 PM EST 05/04/2022 2:33 PM EST [facility] External Provider LAB BLO OD ORDERABLES Final Result Performing Organization Address City/[facility]/ZIP Co de Phone Number [facility] [address] [place] [phone] * Thyroid Peroxidase And Thyroglobulin Antibodies (05/04/2022 2:30 PM EST) Pathologist [facility] Thyroglobulin Antibodies <1 < or = 1 IU/mL [facility] Comment:THIS TEST WAS PERFOR MED AT:[employer] [address] ([facility])[place] [address]UBEPPNANCY ADKINS MD 05/04/2022 2:30 PM EST 05/04/2022 2:33 PM EST [facility] External Provider LAB BLO OD ORDERABLES Final Result [facility] [address] [place] [phone] * (ABNORMAL) Thyroglobulin, LC/MS/MS (05/04/2022 2:30 PM EST) Pathologist [facility] Thyroglobulin, LC/MS/MS <0.1(A) ng/mL [facility] Comment:Reference Range: In tact Thyroid 2.8-40.9 Athyrotic <0.1 Note: Abnormal flagging is based on the reference interval for patients with intact thyroid.This test was performed using the Kristen Coulterchemiluminescent method. Values obtained fromdifferent assay methods cannot be usedinterchangeably. Thyroglobulin levels, regardlessof value, should not be interpreted as absoluteevidence of the presence or absence of disease. Thyroglobulin Comment See Below [facility] Comment:Thyroglobulin antibo dies (TGAB) interfere withthyroglobulin (TG) assays; therefore, TGAB assayshould always be performed in conjunction with aTG assay.For additional information, please refer tohttp://education.mSeller/faq/FNX649(This link is being provided for informational/educational purposes only.)THIS TEST WAS PERFORMED AT:[facility] [place] [address] ([facility])[place] [address]HVQMPNANCY ADKINS MD 05/04/2022 2:30 PM EST 05/04/2022 2:33 PM EST us [facility] External Provider LAB BLO OD ORDERABLES Final Result [facility] [address] [place] [phone] * PTH, Intact Without Calcium (05/04/2022 2:30 PM EST) PTHI 73 16 - 77 pg/mL [facility] Comment:Interpretive Guide I ntact PTH Calcium -------Normal Parathyroid Normal NormalHypoparathyroidism Low or Low Normal LowHyperparathyroidism Primary Normal or High High Secondary High Normal or Low Tertiary High HighNon-Parathyroid Hypercalcemia Low or Low Normal High Calcium (PTHI) 8.9 8.6 - 10.4 mg/dL [facility] Comment:THIS TEST WAS PERFOR MED AT:[facility] [place] [address] ([facility])[place] [address]NDGUHNANCY ADKINS MD 05/04/2022 2:30 PM EST 05/04/2022 2:33 PM EST [facility] External Provider LAB BLO OD ORDERABLES Final Result Performing Organization Address City/[facility]/ZIP Co de Phone Number [facility] [address] [place] [phone] * TSH (05/04/2022 2:30 PM EST) Thyroid Stimulating Hormone 3.46 0.32 - 4.0 uIU/mL [facility] Comment:Note: A sustained TS H level above 2.5 uIU/mL may warrant further investigation. TSH 3rd Generation ([facility]) 05/04/2022 2:30 PM EST 05/04/2022 2:33 PM EST [facility] External Provider LAB BLO OD ORDERABLES Final Result Performing Organization Address [facility]/ZIP Co de Phone Number [facility] [address] [place] [phone] * T4, Free (05/04/2022 2:30 PM EST) Free T4 (Free Thyroxine) 1.14 0.71 - 1.85 ng/dL [facility] 05/04/2022 2:30 PM EST 05/04/2022 2:33 PM EST [facility] External Provider LAB BLO OD ORDERABLES Final Result Performing Organization Address City/[facility]/ZIP Co de Phone Number [facility] [address] [place] [phone] * Vitamin D, 25-Hydroxy, Total, Immunoassay (05/04/2022 2:30 PM EST) Vitamin D 25-OH Total 25.8 >30 ng/mL [facility] Comment:Health Based Referen ce Values*< 20 ng/mL Lrawvbweu38-97 ng/mL Insufficient> 30 ng/mL Sufficient*Elver KRUSE. N [...] 2:30 PM EST 05/04/2022 2:33 PM EST [facility] External Provider LAB BLO OD ORDERABLES Final Result Performing Organization Address [facility]/ZIP Co de Phone Number [facility] [address] [place] [phone] * Phosphate (As Phosphorus) (05/04/2022 2:30 PM EST) Phosphorus 3.0 2.7 - 4.5 mg/dL [facility] 05/04/2022 2:30 PM EST 05/04/2022 2:33 PM EST [facility] External Provider LAB BLO OD ORDERABLES Final Result Performing Organization Address [facility] Co de Phone Number [facility] [address] [place] [phone] * Comprehensive Metabolic Panel (05/04/2022 2:30 PM EST) Sodium 138 135 - 145 mmol/L [facility] Potassium 4.8 3.3 - 5.1 mmol/L [facility] Chloride 106 96 - 108 mmol/L [facility] Carbon Dioxide 24 22 - 29 mmol/L [facility] Anion Gap 13 12 - 20 [facility] Urea Nitrogen (BUN) 15 9 - 16 mg/dL [facility] Creatinine, Serum 0.85 0.5 - 1.4 mg/dL [facility] Estimated Glomerular Filt Rate >60 [facility] Comment:NOTE: For -Am erican individuals, multiply the result by 1.210.Chronic Kidney Disease: Estimated GFR < 60 mL/min/1.43d8Mlknua Kidney Disease: Estimated GFR < 15 mL/min/1.73m2 Glucose 90 60 - 115 mg/dL [facility] Calcium 9.0 8.4 - 10.2 mg/dL [facility] Bilirubin, Total 0.3 0.0 - 1.0 mg/dL [facility] Aspartate Amino Transferase 26 5 - 31 U/L [facility] Alanine Aminotransferase 28 0 - 31 U/L [facility] Total Protein 6.8 6.5 - 8.0 g/dL [facility] Albumin Level 4.2 3.5 - 5.0 g/dL [facility] Alkaline Phosphatase 61 39 - 117 U/L [facility] 05/04/2022 2:30 PM EST 05/04/2022 2:33 PM EST us [facility] External Provider LAB BLO OD ORDERABLES Final Result [facility] [address] [place] [address] [phone] documented in this encounter Visit Diagnoses Not on filedocumented in this encounter Care Teams Scanning Tech Relationship Specialty Start Date End Date Name, MD Rock [address] [place] [address] PCP - General Family Medicine 07/04/15 documented as of this encounter
--- OUTSIDE RECORDS SUMMARY | 2024-07-03 15:02 | XMS_ITS | Encounter Summary ---
Author Organization [employer] Address [address] [place] [address] 7 [place] [address] Care Team Providers Care Electronic Warfare Officer Name Role Phone Name, Rock DE PAZ Primary Care Provider [phone] Reason for Visit * Reason Comments Med Refill Encounter Details Date Type Department Care Team (Late st Contact Info) Description 04/08/2022 Refill [facility] [address] [place] [address] Yoni Mccormick MD [address] [place] [address] [phone] Social History Tobacco Use Types Packs/Day Years [...] Clinical Support [facility] MEDICINE [address] [place] [address] [phone] Corrie Chen, RN 09/06/2024 3:30 PM EDT Office Visit [facility] MEDICINE [address] [place] [address] [phone] Ravi, MD Rock [address] [place] [address] [phone] documented as of this encounter Visit Diagnoses Not on filedocumented in this encounter Care Teams Electronic Warfare Officer Relationship Specialty Start Date End Date Name, MD Rock [address] [place] [address] PCP - General Family Medicine 07/04/15 documented as of this encounter
--- OUTSIDE RECORDS SUMMARY | 2024-07-03 15:02 | XMS_ITS | Encounter Summary ---
Author Organization [employer] Address 75 [facility] 7t [place] [address] Care Team Providers Care Executive Vp Name Role Phone Name, Rock DE PAZ Primary Care Provider [phone] Reason for Visit * Reason Comments Med Refill Encounter Details Date Type Department Care Team (Late st Contact Info) Description 04/26/2023 Refill [facility] MEDICINE [address] [place], [place] [phone] Name, MD Rock [address] [place], [place] [phone] Insomnia, unspecified type Social History Tobacco Use [...] Description 07/17/2024 1:00 PM EDT Clinical Support [address] [address] Corrie Chen RN 09/06/2024 3:30 PM EDT Office Visit [address] [address] Name, MD Rock [address] [place] [address] documented as of this encounter Visit Diagnoses Diagnosis Insomnia, unspecified type documented in this encounter Additional Health Concerns Assessment Noted Time PHQ-9 Depression Total Score: 21 11/20/ 023 10:14 AM EDT documented as of this encounter Care Teams Executive Vp Relationship Specialty Start Date End Date NameRock MD [address] [place] [address] PCP - General Family Medicine 07/04/15 documented as of this encounter
--- OUTSIDE RECORDS SUMMARY | 2024-07-03 15:02 | XMS_ITS | Encounter Summary ---
Author Organization [employer] Address 75 [facility] 7 [place] [address] Care Team Providers Care Account Representative Name Role Phone Name, Rock DE PAZ Primary Care Provider [phone] Reason for Visit * Reason Onset Date Comments Medication Question 05/31/2023 Encounter Details Date Type Department Care Team ([facility] st Contact Info) Description 05/31/2023 Telephone [facility] MEDICINE [address] [place] [address] [phone] Name, MD Rock [address] [place], [place] [phone] Medication Question Social History Tobacco Use Types [...] a week . pt. Advised to call [facility] because medication was prescribe by [facility]. Pt. States housing officer also prescribe blood works before prescribing these medication, but as per pt. PCP is managing kidney related function and low phosphorus so want to discuss about these medication. Pt. Advised that message will be sent to PCP for review. Please review and advise. Tc from pt requesting to speak with provider in regards to two medications that are being offered by the [facility] which are Pimwall which has to be injected every single day and Levaradi which is once a week . Pt would like to discuss this with PCP or nurse to verify if it's okay and which medication should she go for due to her medical History. Please contact pt @ [phone] * Telephone Encounter - Espearnza Bravo - 05/31/2023 2:02 PM EST Tc from pt requesting to speak with provider in regards to two medications that are being offered by the [facility] which are Pimwall which has to be injected every single day and Levaradi whichis once a week . Pt would like to discuss this with PCP or nurse to verify if it's okay and which medication should she go for due to her medical History. Please contact pt @ [phone] documented in this encounter Plan of Treatment Upcoming Encounters Date Type Department Care Team (Late st Contact Info) Description 07/17/2024 1:00 PM EDT Clinical Support [facility] MEDICINE [address] [place] [address] Corrie Chen RN 09/06/2024 3:30 PM EDT Office Visit [address] [address] Name, MD Rock [address] [place] [address] documented as of this encounter Visit Diagnoses Not on filedocumented in this encounter Additional Health Concerns Assessment Noted Time PHQ-9 Depression Total Score: 21 023 10:14 AM EDT documented as of this encounter Care Teams Account Representative Relationship Specialty Start Date End Date Name, MD Rock [address] [place] [address] PCP - General Family Medicine 07/04/15 documented as of this encounter
--- OUTSIDE RECORDS SUMMARY | 2024-07-03 15:03 | XMS_ITS | Encounter Summary ---
Author Organization [employer] Address 75 [facility] 7 [place] [address] Care Team Providers Care Bottle Feeder Name Role Phone Name, Rock DE PAZ Primary Care Provider [phone] Reason for Visit * Reason Onset Date Comments Med Refill 03/02/2024 Encounter Details Date Type Department Care Team (Late st Contact Info) Description 03/02/2024 Refill [facility] MEDICINE [address] [place], [place] [phone] Name, MD Rock [address] [place] [address] Chronic pain syndrome Social History Tobacco Use [...] EDT Clinical Support [facility] MEDICINE [address] [place] [phone] Corrie Chen RN 09/06/2024 3:30 PM EDT Office Visit [facility] MEDICINE [address] [place] [phone] Name, MD Rock [address] [place] [address] documented as of this encounter Visit Diagnoses Diagnosis Chronic pain syndrome documented in this encounter Additional Health Concerns Assessment Noted Time PHQ-9 Depression Total Score: 12 024 2:16 PM EDT documented as of this encounter Care Teams Bottle Feeder Relationship Specialty Start Date End Date Name, MD Rock [address] [place] [address] PCP - General Family Medicine 07/04/15 documented as of this encounter
--- OUTSIDE RECORDS SUMMARY | 2024-07-03 15:03 | XMS_ITS | Encounter Summary ---
Author Organization [employer] Address 75 [facility] 7t [place] [address] Care Team Providers Care Greige Mender Name Role Phone Name, Rock DE PAZ Primary Care Provider [phone] Reason for Visit * Reason Comments Med Refill Encounter Details Date Type Department Care Team ([facility] st Contact Info) Description 11/29/2023 Refill [facility] [address] [place] [address] [phone] Name, MD Rock [address] [place] [address] [phone] Chronic pain syndrome Social History Tobacco Use [...] Description 07/17/2024 1:00 PM EDT Clinical Support [facility] MED[facility] [address] [place] [phone] Corrie Chen, SCOUT 09/06/2024 3:30 PM EDT Office Visit [facility] [address] [place] [address] NameRock MD [address] [place] [address] documented as of this encounter Visit Diagnoses Diagnosis Chronic pain syndrome documented in this encounter Additional Health Concerns Assessment Noted Time PHQ-9 Depression Total Score: 12 024 2:16 PM EDT documented as of this encounter Care Teams Greige Mender Relationship Specialty Start Date End Date Name, MD Rock [address] [place] [address] PCP - General Family Medicine 07/04/15 documented as of this encounter
--- OUTSIDE RECORDS SUMMARY | 2024-07-03 15:03 | XMS_ITS | Encounter Summary ---
Author Organization [employer] Address 75 [facility] 7 [place] [address] Care Team Providers Care Tool Chaser Name Role Phone Name, Rock DE PAZ Primary Care Provider [phone] Reason for Visit * Reason Onset Date Comments Med Refill 03/10/2024 Encounter Details Date Type Department Care Team (Late st Contact Info) Description 03/10/2024 Refill [facility] MEDICINE [address] [place], [place] [phone] Name, MD Rock [address] [place], [place] [phone] Insomnia, unspecified type Social History Tobacco Use [...] 1:00 PM EDT Clinical Support [facility] MEDICINE [address] [place] [address] Corrie Chen RN 09/06/2024 3:30 PM EDT Office Visit [facility] MED[facility]INE [address] [place] [address] NameRock MD [address] [place] [address] documented as of this encounter Visit Diagnoses Diagnosis Insomnia, unspecified type documented in this encounter Additional Health Concerns Assessment Noted Time PHQ-9 Depression Total Score: 12 024 2:16 PM EDT documented as of this encounter Care Teams Tool Chaser Relationship Specialty Start Date End Date Name, MD oRck [address] [place] [address] PCP - General Family Medicine 07/04/15 documented as of this encounter
--- OUTSIDE RECORDS SUMMARY | 2024-07-03 15:03 | XMS_ITS | Encounter Summary ---
Author Organization [employer] Address 75 [facility] 7 [place] [address] Care Team Providers Care Utility Worker Name Role Phone Name, Rock DE PAZ Primary Care Provider [phone] Reason for Visit * Reason Onset Date Comments Med Refill 06/03/2024 Encounter Details Date Type Department Care Team (Late st Contact Info) Description 06/03/2024 Refill [facility] MEDICINE [address] [place], [place] [phone] Name, MD Rock [address] [place], [place] [phone] Hypophosphatemia Social History Tobacco Use Types Packs/Day [...] Description 07/17/2024 1:00 PM EDT Clinical Support [facility] MEDICINE [address] [place] [address] Corrie Chen RN 09/06/2024 3:30 PM EDT Office Visit [facility] MEDICINE [address] [place] [address] NameRock MD [address] [place] [address] documented as of this encounter Visit Diagnoses Diagnosis Hypophosphatemia Disorders of phosphorus metabolism documented in this encounter Additional Health Concerns Assessment Noted Time PHQ-9 Depression Total Score: 17 025 2:50 PM EST documented as of this encounter Care Teams Utility Worker Relationship Specialty Start Date End Date NameRock MD [address] [place] [address] PCP - General Family Medicine 07/04/15 documented as of this encounter
--- OUTSIDE RECORDS SUMMARY | 2024-07-03 15:03 | XMS_ITS | Data Portability ---
Author Organization [place] [employer] [facility], [facility], [facility] Address [address] [place] [phone] Care Team Providers Care Superintendent Sales Name Role Phone RITA MICHEL Referring Provider Assessment No assessment recorded. Plan of Treatment Reminders Order Date Submit Date Provider Last Modified By Organization Details Last Modified Time Details Appointments None recorded. Lab None recorded. Referral None recorded. Procedures None recorded. Surgeries None recorded. Imaging None recorded. Medication Orders Augmentin 875 mg-125 mg tablet 2020 021 ISAK [id number], [address] [place], [address], 11:35:58 tramadol 50 mg tablet 2020 021 ISAK [id number], [address] [place], [address], 11:40:00 Patient TargetsNo targets recorded. Patient Instructions Encounter Date Encounter Id Patient Instructions Last Modified By Organization Details Last Modified Time 09/11/2020 [id number] Follow-up with PCP, or if can't get in with PCP, at the walk-in if no better or ER if any worse, or any red flag symptoms. Patient voiced understanding and agreement with treatment plan. [email or web address] Not available 09/11/2020 16:39:46 Reason for Referral None Reported. Problems Name Problem SNOMED Code Status Onset Date Resolution Date Notes Provider Name and Address Organization Details Recorded Time Hypercholes terolemia 86649258 Active 2020 Elissa clements [place] [facility] [employer] [facility], [facility] 10:58:44 Insomnia 697780589 [facility] 11:06:37 Depressive disorder 81873618 Active 2020 Elissa clements [facility], [facility] 11:06:55 Anxiety 99486141 Active 2020 Elissa clements [facility], [facility] 11:07:11 Hyperthyroi dism 76286486 [facility] 2020 [facility] 11:07:58 Carcinoma of thyroid 892288130 Active 2020 [facility] 11:08:23 Acid reflux 542238233 Active 2020 [facility] 11:08:33 Gastroesoph ageal reflux disease 722416579 Active 2020 [facility] 11:09:08 History of back pain 7933020983322 02 [facility] Problem Notes None recorded. Medical Equipment None Reported. Allergies Allergen ID Allergen Name Allergen Category Reaction Reaction Severity Criticality Documentation Date Start Date Code Code System Note Provider Name and Address Organization Details Recorded Time 349260 Product containin g 3-hydroxy -3-methyl glutaryl- coenzyme A reductase inhibitor (product) medicatio n anaphylax is itching rash Not available Not available Not available Not available 09/11/2020 87405 009 [facility]ED [facility] 10:49:15 125059 Substance with sulfonami de structure and antibacte rial mechanism of action (substanc e) medicatio n itching rash Not available Not available Not available 09/11/2020 38548 8003 [facility]ED [facility] 10:49:15 Medications Name Sig [...] Address Organization Details Last Updated DateTime 1 330837. 09 g 39.2 kg/m2 170.18 cm 96.8 [degF] 82 /min 98 % 98 % 17 /min 124 mm[Hg] 80 mm[Hg] Elissa Loredo [facility] Physician [facility], [facility] 10:55:03 Social History Question Answer Notes LastModified by Organizat ion Details LastModified Time Tobacco Smoking Status Former Smoker Elissa clements [facility], [facility] 09/11/2020 10:49:15 How Much Tobacco Do You Chew? None [email or web address] Information not available 09/11/2020 Do You Or Have You Ever Used E-cigarettes Or Vape? Never Used Electronic Cigarettes [email or web address] Information not available 09/11/2020 Marital Status [email or web address] Informatio n not available 09/11/2020 Do You Or Have You Ever Used Smokeless Tobacco? Never Used Smokeless Tobacco [email or web address] Information not available 09/11/2020 How Much Tobacco Do You Smoke? No [email or web address] Information not available 09/11/2020 Sex: Unknown Functional Status None recorded. Mental Status None recorded. Family History Relationship Description Onset Age of this Age Resolved Age Notes LastModified by Organization Details LastModified Time Unspecified Relation Family history of malignant neoplasm [email or web address] Not available 09/11 10:59:06 Medical History Condition [...] SNOMED-CT Code Diagnosis ICD10 Code Diagnosis Note [id number] MD ASHE[facility] [address] [place] [phone] 09/11/2020 10:30:20 09/11/2020 11:53:48 Acute periodontal abscess 48808161 K05.219 Acute. Initial Encounter. Not controlled . Will add Augmentin 875-125 BID x 10 days. (No CKD per pt) Continue Clindamyci n as directed. She is taking probiotics already. Discussed new medication , possible side effects, and risk of CDiff with Clinda as well as other abx. Tramadol offers good pain control. I will send refill until she can f/u with PCP up [place]. She is encouraged to see a dentist in [place] prior to flying back next week. She will call Dr. Melo who she has seen previously . She may need to have this drained. Soft foods only. Tylenol/Mo addis for pain prn. every 6 hours. ER for acute changes Chronic back pain 166049 002 G89.29 Chronic, controlled with Tramadol, stable F/U with PCP up [place] [facility] Concerns Section Related Observation LastModified by Organization Detai ls LastModified Time None Recorded Concern Status LastModified by Organization Details LastModified Time None Recorded Advance Directives Directive None Recorded Payers Encounter Date Sequence Insurance Name Policy Number Policy Walls Covered Member ID Walls Member ID Guarantor Name 09/11/2020 1 [place] Coleen Polo [id number] Coleen Polo Notes Date Note Type [...] have you received? 2 doses Imported from [employer] on 09/11/2020 60yo F c/o left lower [...] an appointment to see a dentist in [place]. She denies fever/chills or other symptoms. Jennie Williamson MD [address] [address], [place], [address], [facility] - [facility], [facility] 09/11/2020 21:53:38 OBGyn Episode No OBEpisode recorded.
--- OUTSIDE RECORDS SUMMARY | 2024-07-03 15:03 | XMS_ITS | Encounter Summary ---
Author Organization [employer] Address 75 [facility] 7 [place] [address] Care Team Providers Care Oil Analyst Name Role Phone Name, Rock DE PAZ Primary Care Provider [phone] Reason for Visit * Reason Onset Date Comments Med Refill 06/14/2024 Encounter Details Date Type Department Care Team (Late st Contact Info) Description 06/14/2024 Refill [facility] MEDICINE [address] [place], [place] [phone] Name, MD Rock [address] [place], [place] [phone] Chronic pain syndrome Social History Tobacco Use [...] Description 07/17/2024 1:00 PM EDT Clinical Support [facility] [address] [place] [address] Corrie Chen RN 09/06/2024 3:30 PM EDT Office Visit [facility] [address] [place] [address] Name, MD Rock [address] [place] [address] documented as of this encounter Visit Diagnoses Diagnosis Chronic pain syndrome documented in this encounter Additional Health Concerns Assessment Noted Time PHQ-9 Depression Total Score: 17 025 2:50 PM EST documented as of this encounter Care Teams Oil Analyst Relationship Specialty Start Date End Date Name, MD Rock [address] [place] [address] PCP - General Family Medicine 07/04/15 documented as of this encounter
--- OUTSIDE RECORDS SUMMARY | 2024-07-03 15:03 | XMS_ITS | Clinical Summary ---
Author Organization [employer] Address [address] [place] [address] Care Team Providers Care Curator Of Photography And Prints Name Role Phone Name, Rock DE PAZ Primary Care Provider [phone] Allergies Active Allergy Reactions Criticality Noted Date [...] clean tip and replace cap. 16 g 024 2024 Active omeprazole (PriLOSEC) 40 MG [...] TOTAL OF 225MG. 90 capsule 1 Active loratadine (Claritin) 10 MG tabletIndicati ons:Rhinorrhea TAKE 1 TABLET BY MOUTH EVERY MORNING 90 tablet Active hydroCHLOROthi azide (HYDRODiuril) 25 MG tablet [...] not swallow. 1 each 025 2025 Active busPIRone (Buspar) 30 MG tabletIndicati ons:Insomnia, unspecified type TAKE 1 TABLET BY MOUTH TWICE DAILY 60 tablet 2 Active venlafaxine XR (Effexor XR) 150 MG 24 hr capsuleIndicat ions:Hypophosp hatemia TAKE 1 CAPSULE BY MOUTH ONCE DAILY. TAKE WITH 75MG DOSE FOR A TOTAL DOSE OF 225MG DAILY. 90 capsule 1 Active carisoprodol (Soma) 350 MG tabletIndicati ons:Chronic pain syndrome TAKE 1 TABLET BY MOUTH ONCE DAILY IN THE MORNING,AT NOON, IN THE EVENING AND AT BEDTIME FOR MUSCLE SPASM FOR UP TO 23 DAYS 90 tablet 025 Active traMADol (Ultram) 50 MG tabletIndicati ons:Chronic pain syndrome Take 1 tablet (50 mg) by mouth every 8 (eight) hours if needed for severe pain for up to 28 days. 84 tablet 025 2024 Active OXcarbazepine (Trileptal) 150 MG tabletIndicati ons:Hypophosph atemia TAKE 1 TABLET BY MOUTH TWICE DAILY 60 tablet 025 Active zolpidem (Ambien) 10 MG tabletIndicati ons:Insomnia, unspecified type TAKE 1 TABLET BY MOUTH ONCE DAILY AT BEDTIME NEEDED FOR SLEEP 28 tablet 025 Active venlafaxine XR (Effexor XR) 150 MG 24 hr capsuleIndicat ions:Hypophosp hatemia TAKE 1 CAPSULE BY MOUTH ONCE DAILY. TAKE WITH 75MG DOSE FOR A TOTAL DOSE OF 225MG DAILY. 90 capsule 024 2024 Discontinued(R eorder (will not trigger notification to Pharmacy)) OXcarbazepine (Trileptal) 150 MG tabletIndicati ons:Hypophosph atemia [...] eorder (will not trigger notification to Pharmacy)) carisoprodol (Soma) 350 MG tabletIndicati ons:Chronic pain syndrome TAKE 1 TABLET BY MOUTH IN THE MORNING, AT NOON, IN THE EVENING AND AT BEDTIME FOR MUSCLE SPASM FOR UP TO 23 DAYS 90 tablet 025 2024 Discontinued traMADol (Ultram) 50 MG tabletIndicati ons:Chronic pain syndrome Take 1 tablet (50 mg) by mouth every 6 (six) hours if needed for severe pain for up to 28 days. 84 tablet 025 2024 Discontinued(R eorder (will not [...] Encounters Date Type Department Care Team Description 07/01/2024 Refill [facility] [address] [place] [phone] Name, MD Rock Insomnia, unspecified type 06/30/2024 Telephone [facility] [address] [place] [address] Magdalena Pena MA july recalls 06/28/2024 Refill [facility] [address] [place] [phone] Rock Rodrigues MD Hypophosphatemia 06/25/2024 Refill [facility] [address] [place] [address] Rock Rodrigues MD Chronic pain syndrome 06/16/2024 Telephone [facility] [address] [place] [address] Magdalena Pena MA Hawa Recalls 06/16/2024 Refill [facility] [address] [place] [address] Rock Rodrigues MD Chronic pain syndrome 06/16/2024 Refill [facility] [address] [place] [address] Rock Rodrigues MD Chronic pain syndrome 06/14/2024 Refill [facility] [address] [place] [address] Rock Rodrigues MD Chronic pain syndrome 06/14/2024 Refill [facility] [address] [place] [address] Rock Rodrigues MD Chronic pain syndrome 06/04/2024 Refill [facility] [address] [place] [address] Cheyenne Finnegan DO Insomnia, unspecified type; Hypophosphatemia 06/04/2024 Refill [facility] [address] [place] [address] Agnieszka Arvizu MD Insomnia, unspecified type 06/03/2024 Refill [facility] [address] [place] [address] Rock Rodrigues MD Hypophosphatemia 05/23/2024 Refill [facility] [address] [place] [phone] Rock Rodrigues MD Chronic pain syndrome (Primary Dx) 05/22/2024 Orders Only GENERIC EXTERNAL DATA DEPARTMENT Provider, Generic External Data 05/20/2024 Refill [facility] [address] [place] [address] Rock Rodrigues MD Chronic pain syndrome 05/17/2024 2:00 PM EST Office Visit [facility] [address] [place] [address] Rock Rodrigues MD Cough, unspecified type (Primary Dx); Wheezing; History of asthma; Hypertension, unspecified type 05/17/2024 Travel 05/09/2024 Refill [facility] [address] [place] [address] Rock Rodrigues MD Rhinorrhea 05/08/2024 Refill [facility] [address] [place] [address] Rock Rodrigues MD Rhinorrhea 05/08/2024 Refill [facility] [address] [place] [address] Rock Rodrigues MD Chronic pain syndrome; Insomnia, unspecified type 05/08/2024 Refill [facility] [address] [place] [address] Rock Rodrigues MD Insomnia, unspecified type; Rhinorrhea 05/08/2024 Refill [facility] [address] [place] [address] Rock Rodrigues MD Hypophosphatemia; Insomnia, unspecified type 05/04/2024 Telephone [facility] [address] [place] [phone] Rock Rodrigues MD Prior Authorization (carisoprodol (Soma) ) 04/27/2024 Refill [facility] [address] [place] [phone] Rock Rodrigues MD Chronic pain syndrome 04/22/2024 Refill [facility] [address] [place] [address] 315[address] Rock Rodrigues MD Chronic pain syndrome 04/21/2024 Telephone [facility] [address] [place] [phone] Dorota Henry MA PCP OUT 04/18/2024 11:30 AM EST Clinical Support [facility] [address] [place] [address] 520[address] Corrie Chen RN Chronic pain syndrome (Primary Dx) 04/18/2024 Telephone [facility] [address] [place] [address] 216[address] Corrie Chen RN Abnormal UTOX 04/18/2024 Travel 04/18/2024 Telephone [facility] [address] [place] [address] Corrie Chen, RN Recommend BAND TACKER Tier 2 04/16/2024 Refill [facility] [address] [place] [address] NameRock MD Chronic pain syndrome (Primary Dx) 04/10/2024 Telephone [facility] [address] [place] [address] NameRock MD Appointment Request 04/07/2024 Refill [facility] [address] [place] [address] NameRock MD Insomnia, unspecified type from Last 3 Months Immunizations Name Administration Dates Next Due INFLUENZA VACCINE QUADRIVALE NT RECOMBINANT PRESERVATIVE FREE RIV4 01/20/2020,02/09/2019 Influenza injectable quadriv alent preservative free 02/15/2023,01/07/2022,02/17/2021,01/15,01/28/2017,01/22/2016 Influenza, IIV3, injectable 01/07/2015,1 ,02/16/2013,01/10,01/24/2009 Novel pwicoxhdn-T9H4-53, preservative-free 04/03/2009 Pfizer Covid-19 Vaccine 12+ 03/29/2023 [...] your housing situation today? I have sarah sing 05/17/[address] you li [...] Description 07/17/2024 1:00 PM EDT Clinical Support [address] [address] Corrie Chen RN 09/06/2024 3:30 PM EDT Office Visit [facility] [place] [address] Name, [place] [address] Health Maintenance Due Date Last Done Comments [...] Procedure Name Priority Date/Time Associated Diagnosis Comments US HEAD NECK SOFT TISSUE Routine 06/13/2024 5:29 PM EST T4, FREE Routine 05/22/2024 2:49 PM EST [...] Recently Relevant to Health Maintenance Results * US Head Neck Soft Tissue (06/13/2024 5:29 PM EST) Anatomical Region Laterality Modality Head, Neck Ultrasound 06/13/2024 5:29 PM EST Narrative 06/13/2024 5:31 PM EST ? [facility] ?[address] ?[place] [address] ? Ultrasound Report ? Signed ? Patient: Coleen Tyler ?MR#: [id number] ? : 1960 ?Acct:[id number] ? Age/Sex: 64 / F ?ADM Date: 06/12/24 ? Loc: HO.US ? Attending Dr: Adeola Russ MD ? Ordering Physician: Adeola Russ MD ?? Date of Service: 06/12/24 ?? Procedure(s): US soft tiss head and/or neck ?? Accession Number(s): [id number] ? cc: Adeola Russ MD; Rock Rodrigues MD ? CLINICAL HISTORY: Z85.850 - Personal history of malignant neoplasm of thyroid ? Soft tissue neck ultrasound ? Comparison: None provided. There is reportedly a prior ultrasound from ?? 202. An addendum can be provided if the images and/or report is submitted ?? for review. ? Findings: ?? Grayscale and color Doppler images were obtained with a high-frequency ?? linear transducer of the thyroidectomy bed and cervical lymph nodes. There ?? is abnormality within the thyroidectomy bed. There is a right level IB ?? lymph node measuring 0.4 x 0.3 x 0.3 cm with normal morphology. There is a ?? right level II lymph node measuring 0.9 x 0.5 x 1.2 cm with normal ?? morphology. There is a left level III lymph node measuring 0.6 x 0.3 x 0.6 ?? cm with question of a diminished hilum. This lymph node was seen on prior ?? study, again an addendum can be provided if the prior study is submitted ?? for review. There is left level III lymph node measuring 0.8 x 0.4 x 0.8 ?? cm with normal morphology. ? Impression: ?? Status post thyroidectomy. No abnormality in the thyroidectomy bed. Normal ?? size left III lymph node with question of a diminished hilum which may ?? indicate abnormal morphology. Follow up as clinically indicated. ? This document has been electronically signed by: Cleo Sutton MD ?? on 06/13/2024 17:29:32 ? Dictated By: ?Cleo Ruiz MD ? Signed By: ?<Electronically signed by Cleo Ruiz MD in OV> ? 06/13/24 1730 ? DD/ 1729 ? TD/TT: 06/13/241728 ? Cork Grinder: ? Procedure Note [place], Image - 06/13/2024 [place] [address] Ultrasound Report Signed Patient: John Tyler#: [id number] : 1960cct:[id number] Age/Sex: 64 / FADM Date: 06/12/24 Loc: HO.US Attending Dr: Adeola Russ MD Ordering Physician: Adeola Russ MD Date of Service: 06/12/24 Procedure(s): US soft tiss head and/or neck Accession Number(s): [id number] cc: Adeola Russ MD; Name,Rock DE PAZ CLINICAL HISTORY: Z85.850 - Personal history of malignant neoplasm ofthyroid Soft tissue neck ultrasound Comparison: None provided. There is reportedly a prior ultrasound from 2020. An addendum can be provided if the images and/or report is submitted for review. Findings: Grayscale and color Doppler images were obtained with a high-frequency linear transducer of the thyroidectomy bed and cervical lymph nodes. There is abnormality within the thyroidectomy bed. There is a right level IB lymph node measuring 0.4 x 0.3 x 0.3 cm with normal morphology. There is a right level II lymph node measuring 0.9 x 0.5 x 1.2 cm with normal morphology. There is a left level III lymph node measuring 0.6 x 0.3 x 0.6 cm with question of a diminished hilum. This lymph node was seen on prior study, again an addendum can be provided if the prior study is submitted for review. There is left level III lymph node measuring 0.8 x 0.4 x 0.8 cm with normal morphology. Impression: Status post thyroidectomy. No abnormality in the thyroidectomy bed. Normal size left III lymph node with question of a diminished hilum which may indicate abnormal morphology. Follow up as clinically indicated. This document has been electronically signed by: Celo Sutton MD on 06/13/2024 17:29:32 Dictated By: Cleo Ruiz MD Signed By: <Electronically signed by Cleo Ruiz MD in OV> 06/13/24 1730 DD/ 172 TD/TT: 06/13/24 172 Cork Grinder: [facility] External Provider IMG US PROCEDURES Edited Result - Final * T4, Free (05/22/2024 2:49 PM EST) [facility] Free T4 (Free Thyroxine) 1.39 0.71 - 1.85 ng/dL [facility] 05/22/2024 2:49 PM EST 05/22/2024 2:49 PM EST Generic External Data Provider LAB BLOOD ORDERAB LES Final Result [facility] [address] [place] [phone] * POCT Rapid Covid-19 BinaxNOW (05/17/2024 3:33 PM EST) [facility] Rapid COVID Ag Negative QC Media Lot # [id number] Lot# Expiration Date Swab 05/17/2024 3:33 PM EST [facility] ENTER/EDIT OR DERABLES Final Result * POCT Rapid Influenza B OSOM (05/17/2024 3:32 PM EST) Rapid Influenza B Ag Negative Negative, Indeterminate QC Media Lot # [id number] Lot# Expiration Date Swab 05/17/2024 3:32 PM EST [facility] POINT OF CARE TEST ENTER/EDIT OR DERABLES Final Result * POCT Rapid Influenza A OSOM (05/17/2024 3:32 PM EST) [facility] Rapid Influenza A Ag Negative Negative, Indeterminate QC Media Lot # [id number] Lot# Expiration Date Swab Nasopharyngeal structure / Unknown 05/17/2024 3:32 PM EST [facility] POINT OF CARE TEST ENTER/EDIT OR DERABLES Final Result * (ABNORMAL) POCT PAULETTE-14 Urine Drug Screen (04/18/2024 11:51 AM EST) [facility] THC Positive Methadone Screen, Urine Positive TCA, Urine Positive Phencyclidine (PCP), Urine Positive Urine Urine specimen obtained by clean catch procedure / Unknown 04/18/2024 11:51 AM EST Corrie Gomez RN - 04/18/2024 11:51 AM EST UTOX cup Lot#[id number] Exp. 01/18/26 Internal Pass Control Result [facility] POINT OF CARE TEST ENTER/EDIT OR DERABLES Final Result * Drug Monitoring, Phencyclidine, Quantitative, Urine (04/18/2024 11:30 AM EST) Pathologist [facility] Phencyclidine NEGATIVE [facility] Comment:REFERENCE RANGE: <25 ng/mLThis drug testing is for medical treatment only.Analysis was performed as non-forensic testing andthese results should be used only by healthcareproviders to render diagnosis or treatment, or tomonitor progress of medical conditions.LDT Notes:Confirmation tests were developed and their analyticalperformance characteristics have been determined by[facility]. It has not been cleared or approvedby the FDA. This assay has been validated pursuant tothe CLIA regulations and is used for clinical purposes.Healthcare Providers needing Interpretation assistance,please contact us at [phone] ( )M- F, 8am to 10pm ESTTHIS TEST PERFORMED AT:[facility] [address] [phone] DIRECTOR: NANCY ADKINS MD Urine (Urine, Random) 04/18/2024 11:30 AM EST 04/18/2024 1:23 PM EST us Rock Rodrigues MD LAB URINE ORDERABLES Final Resul t Performing Organization Address [facility] de Phone Number [facility] [address] [place] [address] [phone] * Drug Monitoring, Methadone Metabolite, Screen, Urine (04/18/2024 11:30 AM EST) Methadone Screen, Urine Not Detected Not Detect ng/mL [facility] Comment:Methadone cut-off is 300 ng/mL.Positive results are unconfirmed and should not be used fornon-medical purposes. Urine (Urine, Random) 04/18/2024 11:30 AM EST 04/18/2024 1:23 PM EST us Rock Rodrigues MD LAB URINE ORDERABLES Final Resul t Performing Organization Address [facility] Co de Phone Number [facility] [address] [place] [phone] * BI Mammogram Screening Tomosynthesis Bilateral (02/04/2024 1:40 PM EDT) Anatomical Region Laterality Modality Breast Bilateral Mammography 02/04/2024 1:40 PM EDT Narrative 02/17/2024 9:45 PM EDT ? [facility] ? [address] ?[place], [place] [address] ? Mammography Report ? Signed ? Patient: Jayson,Coleen ?MR#: [id number] ? : 1960 ?Acct:[id number] ? Age/Sex: 64 / F ?ADM Date: 02/04/24 ? Loc: HO.MAMMO ? Attending : Rock Rodrigues MD ? Ordering Physician: Name,Rock DE PAZ ?Results: 1Negative ? Date of Service: 02/04/24 ?Follow Up: 1 Year From Orig ?? inal Mammogram ? Procedure(s): MM tomosynthesis screening BI ?? Accession Number(s): [id number] ? cc: Name,Rock DE PAZ ? EXAMINATION: [...] by Kristal Santos, DO in OV> ? 02/17/242141 ? DD/ 1340 ? TD/TT: 02/04/24 1358 ? Cork Grinder: ? Procedure Note Orlando Rosa - 02/17/2024 Derek [facility] [address] [place] [address] Mammography Report Signed Patient: John Tyler#: [id number] : 1Acct:[id number] Age/Sex: 64 / FADM Date: 02/04/24 Loc: HO.MAMMO Attending Dr: Rock Rodrigues MD Ordering Physician: Rock Rodriguesesults: 1Negative Date of Service: 02/04/24Follow Up: 1 Year From Orig inal Mammogram Procedure(s): MM tomosynthesis screening BI Accession Number(s): [id number] cc: Rock Rodrigues MD EXAMINATION: MM SCREENING [...] Kristal Santos DO 02/17/2024 09:42 PM EDT Dictated By: Kristal Santos DO Signed By: <Electronically signed by Kristal Santos DO in OV> 02/17/24 2142 DD/ 1340 TD/TT: 02/04/24 1358 Cork Grinder: us Rock Name MD [facility] BI PROCEDURES Edited Result - Final * (ABNORMAL) Lipid Panel, Standard (12/07/2023 11:55 AM EDT) Triglycerides 236(H) <150 mg/dL [facility] Comment:Desirable Triglyceri de: less than 150 mg/dLBorderline High Triglyceride 150-199 mg/dLHigh Triglyceride: 200-499 mg/dLVery High Triglyceride: greater than or equal to 5OO mg/dL Cholesterol 300(H) <200 mg/dL [facility] Comment:Desirable Cholestero l: less than 200 mg/dLBorderline High Cholesterol: 200-239 mg/dLHigh Cholesterol: greater than 239 mg/dL LDL Cholesterol Calculated 214(H) <100 mg/dL [facility] Comment:Desirable LDL: less than 100 mg/dLNear Optimal/Above Optimal LDL: 110- 129 mg/dLBorderline High LDL: 130-159 mg/dLHigh LDL: 160-189 mg/dLVery High LDL: greater than or equal to 190 mg/dL HDL Cholesterol 39(L) >40 mg/dL [facility] Comment:Desirable HDL: great er than 40 mg/dL Note: This HDL assay may give artificially low results in patients with liver disease. 12/07/2023 11:5 5 AM EDT 12/07/2023 11:55 AM EDT us Generic External Data Provider LAB BLOOD ORDERAB LES Final Result [facility] [address] [place] [phone] * Hm Colonoscopy (11/22/2023) Colonoscopy Normal Normal us Rock Rodrigues MD HEALTH MAINTENANCE Final Result * THINPREP TIS PAP AND HPV mRNA E6/E7 WITH REFLEX TO HPV 16,18/45 (01/07/2022 3:18 PM EDT) Clinical Information: None given [facility] COMMENT SEE COMMENT FOUNDATI ON [...] has been evaluated with computer assisted technology. [facility] Barrel Reamer: SEE COMMENT [facility] Comment: VICTOR MANUEL SPAULDING(ASCP) CT screening location: [address] ??[phone] HPV nRNA E6/E7 Not Detected Not Detected [facility] Comment: Methodology: Vegetable Harvest Machine Operator-Mediated Amplification This assay detects E6/E7 viral messenger RNA (mRNA) from 14 high-risk HPV types (16,18,31,33,35,39,45,51,52,56,58,59,66,68). ? Cervical sources are required for HPV testing. If a vaginal source from a patient who has had a total hysterectomy with removal of cervix was ?? submitted, please contact the testing laboratory for alternative testing options. ?? For additional information, please refer to http://education.HopStop.com/faq/UXL252o6 (This link if provided for information/ educational [...] SYSTEM Statement Of Adequacy: SATISFACTORY FOR EVALUATION [facility] 01/07/2022 3:18 PM EDT Tisha Venegas CNM LAB PATHOLOGY ORDERABLES Final Result Performing Organization Address [facility] Co de Phone Number [facility] [address] [place] [address], * HEPATITIS C AB W/REFL TO HCV RNA, QN, PCR (12/23/2021 2:35 PM EDT) HEPATITIS C ANTIBODY NON-REACT MARK NON-REACT MARK [facility] INDEX 0.12 <1.00 [facility] Comment: ?? HCV antibody was non-reactive. There is no laboratory ?? evidence of HCV infection. ?? In most cases, no further action is required. However, if recent HCV exposure is suspected, a test for HCV RNA (test code 58928) is suggested. ?? For additional information please refer to http://education.HopStop.com/faq/OXU66q1 (This link is being provided for informational/ educational purposes only.) ?? 12/23/2021 2:35 PM EDT Rock Rodrigues MD HISTORICAL/NON ORDERABLE LABS Fi nal Result Performing Organization Address [facility] Co de Phone Number [facility] [address] * HIV 1/2 ANTIGEN/ANTIBODY,FOURTH GENERATION W/RFL (02/17/2021 3:50 PM EDT) HIV-1/2 ANTIGEN AND ANTIBODIES, 4TH GENERATION W/ REFLEX NON-REACT MARK NON-REACT [facility] Comment: HIV-1 antigen and HIV-1/HIV-2 [...] ? For additional information please refer to http://education.HopStop.com/faq/BPM422 (This link is being provided for informational/ educational purposes only.) ? The performance of this assay has not been clinically validated in patients less than 2 years old. ?? 02/17/2021 3:50 PM EDT us Rock Rodrigues MD LAB BLOOD ORDERABLES Final Resul t Performing Organization Address City/State/ZIP Co il Phone Number [facility] [address] from Last 3 Months or Most Recently Relevant to Health Maintenance Insurance MEDICARE [facility] [employer] MEDICARE REPLACEMENT Care Teams Curator Of Photography And Prints Relationship Specialty Start Date End Date Name, MD Rock [address] [place] [phone] PCP - General Family Medicine 07/04/15
--- OUTSIDE RECORDS SUMMARY | 2024-07-03 15:03 | XMS_ITS | Encounter Summary ---
Author Organization [employer] Address [address] [facility] 7 [place] [address] Care Team Providers Care Public Relations Director Name Role Phone Name, Rock DE PAZ Primary Care Provider [phone] Reason for Visit * Reason Onset Date Comments Med Refill 05/09/2024 Encounter Details Date Type Department Care Team (Late st Contact Info) Description 05/09/[address] [facility] [address] [place], [place] [phone] Name, MD Rock [address] [place], [place] [phone] Rhinorrhea Social History Tobacco Use Types Packs/Day [...] 07/17/2024 1:00 PM EDT Clinical Support [facility] [address] [place] [phone] Corrie Chen RN 09/06/2024 3:30 PM EDT Office Visit [facility] [address] [place] [phone] Name, MD Rock [address] [place] [address] documented as of this encounter Visit Diagnoses Diagnosis Rhinorrhea Other diseases of nasal cavity and sinuses documented in this encounter Additional Health Concerns Assessment Noted Time PHQ-9 Depression Total Score: 12 024 2:16 PM EDT documented as of this encounter Care Teams Public Relations Director Relationship Specialty Start Date End Date Name, MD Rock [address] [place] [phone] PCP - General Family Medicine 07/04/15 documented as of this encounter
--- OUTSIDE RECORDS SUMMARY | 2024-07-03 15:03 | XMS_ITS | Encounter Summary ---
Author Organization [employer] Address [address] [facility] 7 [place] [address] Care Team Providers Care Sand Plant Attendant Name Role Phone Name, Rock DE PAZ Primary Care Provider [phone] Reason for Visit * Reason Comments Med Refill Encounter Details Date Type Department Care Team (Late st Contact Info) Description 09/16/2022 Refill [facility] [address] [place] [address] [phone] Name, MD Rock [address] [place] [phone] Chronic pain syndrome Social History Tobacco Use [...] 07/17/2024 1:00 PM EDT Clinical Support [address] [address] Corrie Chen, SCOUT 09/06/2024 3:30 PM EDT Office Visit [address] [address] Name, [place] [address] documented as of this encounter Visit Diagnoses Diagnosis Chronic pain syndrome documented in this encounter Care Teams Sand Plant Attendant Relationship Specialty Start Date End Date Name, MD Rock [address] [place] [phone] PCP - General Family Medicine 07/04/15 documented as of this encounter
--- OUTSIDE RECORDS SUMMARY | 2024-07-03 15:03 | XMS_ITS | Encounter Summary ---
Author Organization [employer] Address [address] [place] [address] Care Team Providers Care Wash House Supervisor Name Role Phone Name, Rock DE PAZ Primary Care Provider [phone] Reason for Visit * Reason Comments Med Refill Encounter Details Date Type Department Care Team ([facility] st Contact Info) Description 03/04/2023 Refill [facility] MED[facility]INE [address] [place] [address] Christine Doe, QUENTIN [address] [place] [address] [place] [address] Social History Tobacco Use Types Packs/Day Years [...] EDT Clinical Support [facility] [address] [place] [address] Corrie Chen RN 09/06/2024 3:30 PM EDT Office Visit [facility] [address] [place] [address] Name, MD Rock [address] [place] [address] documented as of this encounter Visit Diagnoses Not on filedocumented in this encounter Additional Health Concerns Assessment Noted Time PHQ-9 Depression Total Score: 21 023 10:14 AM EDT documented as of this encounter Care Teams Wash House Supervisor Relationship Specialty Start Date End Date Name, MD Rock [address] [place] [address] PCP - General Family Medicine 07/04/15 documented as of this encounter
--- OUTSIDE RECORDS SUMMARY | 2024-07-03 15:03 | XMS_ITS | Encounter Summary ---
Author Organization [employer] Address 75 [facility] 7t [place] [address] Care Team Providers Care Aquatics Instructor Name Role Phone Name, Rock DE PAZ Primary Care Provider [phone] Reason for Visit * Reason Onset Date Comments july recalls 06/30/2024 Encounter Details Date Type Department Care Team (Late st Contact Info) Description 06/30/2024 Telephone [facility] MEDICINE 230 [place] [address] Magdalena Pena [place] july recalls Social History Tobacco Use Types Packs/Day Years [...] encounter Miscellaneous Notes * Telephone Encounter - Magdalena Pena [place] - 06/30/2024 2:58 PM EST Telephone call to patient to schedule a recall appointment. No answer, Left voicemail to return call to clinic.. Recall letter sent. Visit type: Follow up Appointment notes: HTN due: July With: Name Please schedule appointment above if patient returns call documented in this encounter Plan of Treatment Upcoming Encounters Date Type Department Care Team (Late st Contact Info) Description 07/17/2024 1:00 PM EDT Clinical Support [facility] MEDICINE [address] [place] [address] Corrie Chen, SCOUT 09/06/2024 3:30 PM EDT Office Visit [facility] MEDICINE [address] [place] [address] Name, MD Rock [address] [place] [address] documented as of this encounter Visit Diagnoses Not on filedocumented in this encounter Additional Health Concerns Assessment Noted Time PHQ-9 Depression Total Score: 17 025 2:50 PM EST documented as of this encounter Care Teams Aquatics Instructor Relationship Specialty Start Date End Date Name, MD Rock [address] [place] [address] PCP - General Family Medicine 07/04/15 documented as of this encounter
--- OUTSIDE RECORDS SUMMARY | 2024-07-03 15:03 | XMS_ITS | Encounter Summary ---
Author Organization [employer] Address 75 [facility] 7 [place] [address] Care Team Providers Care Risk Developer Name Role Phone Name, Rock DE PAZ Primary Care Provider [phone] Reason for Visit * Reason Onset Date Comments Med Refill 07/01/2024 Encounter Details Date Type Department Care Team (Late st Contact Info) Description 07/01/2024 Refill [facility] MEDICINE 230 [place], [place] [phone] Name, MD Rock 230 [place], [place] [phone] Insomnia, unspecified type Social History Tobacco Use [...] Description 07/17/2024 1:00 PM EDT Clinical Support [facility] MEDICINE [address] [place] [address] Corrie Chen RN 09/06/2024 3:30 PM EDT Office Visit [facility] [address] [place] [address] Name, MD Rock [address] [place] [address] documented as of this encounter Visit Diagnoses Diagnosis Insomnia, unspecified type documented in this encounter Additional Health Concerns Assessment Noted Time PHQ-9 Depression Total Score: 17 025 2:50 PM EST documented as of this encounter Care Teams Risk Developer Relationship Specialty Start Date End Date Name, MD Rock [address] [place] [address] PCP - General Family Medicine 07/04/15 documented as of this encounter
--- OUTSIDE RECORDS SUMMARY | 2024-07-03 15:03 | XMS_ITS | Encounter Summary ---
Author Organization [employer] Address 75 [facility] 7t [place] [address] Care Team Providers Care Bar Roller Name Role Phone Name, Rock DE PAZ Primary Care Provider [phone] Encounter Details Date Type Department Care Team (Late st Contact Info) Description 11/24/2023 Abstract [facility] MEDICINE 230 [place], [place] [phone] Name, MD Rock 230 [place] [address] Social History Tobacco Use Types Packs/Day Years [...] 07/17/2024 1:00 PM EDT Clinical Support [address] [address] Corrie Chen RN 09/06/2024 3:30 PM EDT Office Visit [facility] MEDICINE [address] [place] [address] Name, MD Rock [address] [place] [address] documented as of this encounter Procedures Procedure Name Priority Date/Time Associated Diagnosis Comments COLONOSCOPY Routine 11/22/2023 documented in this encounter Results * Colonoscopy (11/22/2023) Colonoscopy Normal Normal Rock Rodrigues MD HEALTH MAINTENANCE Final Result documented in this encounter Visit Diagnoses Not on filedocumented in this encounter Additional Health Concerns Assessment Noted Time PHQ-9 Depression Total Score: 12 024 2:16 PM EDT documented as of this encounter Care Teams Bar Roller Relationship Specialty Start Date End Date Name, MD Rock [address] [place] [address] PCP - General Family Medicine 07/04/15 documented as of this encounter
--- OUTSIDE RECORDS SUMMARY | 2024-07-03 15:03 | XMS_ITS | Encounter Summary ---
Author Organization [employer] Address 75 [facility] 7 [place] [address] Care Team Providers Care Remediation Consultant Name Role Phone Name, Rock DE PAZ Primary Care Provider [phone] Reason for Visit * Reason Onset Date Comments Med Refill 03/10/2024 Encounter Details Date Type Department Care Team ([facility] st Contact Info) Description 03/10/2024 Refill [facility] MEDICINE 230 [place], [place] [phone] Name, MD Rock 230 [place], [place] [phone] Hypophosphatemia Social History Tobacco Use Types Packs/Day [...] Description 07/17/2024 1:00 PM EDT Clinical Support [facility]INE [address] [place] [address] Corrie Chen RN 09/06/2024 3:30 PM EDT Office Visit [address] [address] NameRock MD [address] [place] [address] documented as of this encounter Visit Diagnoses Diagnosis Hypophosphatemia Disorders of phosphorus metabolism documented in this encounter Additional Health Concerns Assessment Noted Time PHQ-9 Depression Total Score: 12 024 2:16 PM EDT documented as of this encounter Care Teams Remediation Consultant Relationship Specialty Start Date End Date NameRock MD [address] [place] [address] PCP - General Family Medicine 07/04/15 documented as of this encounter
--- OUTSIDE RECORDS SUMMARY | 2024-07-03 15:03 | XMS_ITS | Encounter Summary ---
Author Organization [employer] Address 75 [facility] 7 [place] [address] Care Team Providers Care Employee Health Nurse Name Role Phone Name, Rock DE PAZ Primary Care Provider [phone] Reason for Visit * Reason Onset Date Comments Med Refill 06/14/2024 Encounter Details Date Type Department Care Team (Late st Contact Info) Description 06/14/2024 Refill [facility] MEDICINE 230 [place], [place] [phone] Name, MD Rock 230 [place], [place] [phone] Chronic pain syndrome Social History Tobacco Use [...] Description 07/17/2024 1:00 PM EDT Clinical Support [facility] MEDICINE [address] [place] [address] Corrie Chen RN 09/06/2024 3:30 PM EDT Office Visit [facility] [address] [place] [address] Name, MD Rock [address] [place] [address] documented as of this encounter Visit Diagnoses Diagnosis Chronic pain syndrome documented in this encounter Additional Health Concerns Assessment Noted Time PHQ-9 Depression Total Score: 17 025 2:50 PM EST documented as of this encounter Care Teams Employee Health Nurse Relationship Specialty Start Date End Date Name, MD Rock [address] [place] [address] PCP - General Family Medicine 07/04/15 documented as of this encounter
--- OUTSIDE RECORDS SUMMARY | 2024-07-03 15:03 | XMS_ITS | Encounter Summary ---
Author Organization [employer] Address 75 [facility] 7 [place] [address] Care Team Providers Care Automatic Punch Press Operator Name Role Phone Name, Rock DE PAZ Primary Care Provider [phone] Reason for Visit * Reason Onset Date Comments Med Refill 06/16/2024 Encounter Details Date Type Department Care Team (Late st Contact Info) Description 06/16/2024 Refill [facility] MED[facility]INE 230 [place], [place] [phone] Name, MD Rock 230 [place], [place] [phone] Chronic pain syndrome Social History Tobacco Use [...] Support [facility] MEDICINE [address] [place] [address] Corrie Chen RN 09/06/2024 3:30 PM EDT Office Visit [facility] MEDICINE [address] [place] [address] Name, MD Rock [address] [place] [address] documented as of this encounter Visit Diagnoses Diagnosis Chronic pain syndrome documented in this encounter Additional Health Concerns Assessment Noted Time PHQ-9 Depression Total Score: 17 025 2:50 PM EST documented as of this encounter Care Teams Automatic Punch Press Operator Relationship Specialty Start Date End Date Name, MD Rock [address] [place] [address] PCP - General Family Medicine 07/04/15 documented as of this encounter
--- OUTSIDE RECORDS SUMMARY | 2024-07-03 15:03 | XMS_ITS | Encounter Summary ---
Author Organization [email or web address] Address 75 [facility] 7 [place] [address] Care Team Providers Care Pot Runner Name Role Phone Name, Rock DE PAZ Primary Care Provider [phone] Reason for Visit * Reason Comments Med Refill Encounter Details Date Type Department Care Team ([facility] st Contact Info) Description 06/16/2024 Refill [facility] MEDICINE 230 [place], [place] [phone] Name, MD Rock 230 [place], [place] [phone] Chronic pain syndrome Social History Tobacco Use [...] Description 07/17/2024 1:00 PM EDT Clinical Support [facility] MEDICINE [address] [place] [address] Corrie Chen RN 09/06/2024 3:30 PM EDT Office Visit [facility] MED[facility]INE [address] [place] [address] NameRock MD [address] [place] [address] documented as of this encounter Visit Diagnoses Diagnosis Chronic pain syndrome documented in this encounter Additional Health Concerns Assessment Noted Time PHQ-9 Depression Total Score: 17 025 2:50 PM EST documented as of this encounter Care Teams Pot Runner Relationship Specialty Start Date End Date NameRock MD [address] [place] [address] PCP - General Family Medicine 07/04/15 documented as of this encounter
--- OUTSIDE RECORDS SUMMARY | 2024-07-03 15:03 | XMS_ITS | Encounter Summary ---
Author Organization [employer] Address 75 [facility] 7t [place] [address] Care Team Providers Care Lemon Picker Name Role Phone Name, Rock DE PAZ Primary Care Provider [phone] Reason for Visit * Reason Onset Date Comments July Recalls 06/16/2024 Encounter Details Date Type Department Care Team ([facility] st Contact Info) Description 06/16/2024 Telephone [facility] MEDICINE 230 [place] [address] Magdalena Pena [place] July Recalls Social History Tobacco Use Types Packs/Day Years [...] Telephone Encounter - Magdalena Pena [place] - 06/16/2024 3:05 PM EST Telephone call to patient to [...] Description 07/17/2024 1:00 PM EDT Clinical Support [facility] MEDICINE [address] [place] [address] Corrie Chen RN 09/06/2024 3:30 PM EDT Office Visit [facility] MEDICINE [address] [place] [address] Name, MD Rock 230 [place] [address] documented as of this encounter Visit Diagnoses Not on filedocumented in this encounter Additional Health Concerns Assessment Noted Time PHQ-9 Depression Total Score: 17 025 2:50 PM EST documented as of this encounter Care Teams Lemon Picker Relationship Specialty Start Date End Date Name, MD Rock 230 [place] [address] PCP - General Family Medicine 07/04/15 documented as of this encounter
--- OUTSIDE RECORDS SUMMARY | 2024-07-03 15:03 | XMS_ITS | Encounter Summary ---
Author Organization [employer] Address 75 [facility] 7 [place] [address] Care Team Providers Care Lean Manufacturing Leader Name Role Phone Name, Rock DE PAZ Primary Care Provider [phone] Reason for Visit * Reason Onset Date Comments Med Refill 03/03/2024 Encounter Details Date Type Department Care Team (Late st Contact Info) Description 03/03/2024 Refill [facility] MEDICINE 230 [place], [place] [phone] Name, MD Rock 230 [place] [address] Chronic pain syndrome Social History Tobacco Use [...] Support [facility] MEDICINE [address] [place] [address] Corrie Chen RN 09/06/2024 3:30 PM EDT Office Visit [facility] MEDICINE [address] [place] [address] Name, MD Rock [address] [place] [address] documented as of this encounter Visit Diagnoses Diagnosis Chronic pain syndrome documented in this encounter Additional Health Concerns Assessment Noted Time PHQ-9 Depression Total Score: 12 024 2:16 PM EDT documented as of this encounter Care Teams Lean Manufacturing Leader Relationship Specialty Start Date End Date Name, MD Rock [address] [place] [address] PCP - General Family Medicine 07/04/15 documented as of this encounter
--- OUTSIDE RECORDS SUMMARY | 2024-07-03 15:03 | XMS_ITS | Encounter Summary ---
Author Organization [employer] Address 75 [facility] 7 [place] [address] Care Team Providers Care Infusion Rn Name Role Phone Name, Rock DE PAZ Primary Care Provider [phone] Reason for Visit * Reason Onset Date Comments Med Refill 06/25/2024 Encounter Details Date Type Department Care Team (Late st Contact Info) Description 06/25/2024 Refill [facility] MEDICINE 230 [place], [place] [phone] Name, MD Rock 230 [place], [place] [phone] Chronic pain syndrome Social History Tobacco Use [...] Description 07/17/2024 1:00 PM EDT Clinical Support [facility] MEDICINE [address] [place] [address] Corrie Chen RN 09/06/2024 3:30 PM EDT Office Visit [facility] MEDICINE [address] [place] [address] Name, MD Rock [address] [place] [address] documented as of this encounter Visit Diagnoses Diagnosis Chronic pain syndrome documented in this encounter Additional Health Concerns Assessment Noted Time PHQ-9 Depression Total Score: 17 025 2:50 PM EST documented as of this encounter Care Teams Infusion Rn Relationship Specialty Start Date End Date Name, MD Rock [address] [place] [address] PCP - General Family Medicine 07/04/15 documented as of this encounter
--- OUTSIDE RECORDS SUMMARY | 2024-07-03 15:03 | XMS_ITS | Encounter Summary ---
Author Organization [employer] Address 75 [facility] 7 [place] [address] Care Team Providers Care Pumper Head Name Role Phone Name, Rock DE PAZ Primary Care Provider [phone] Reason for Visit * Reason Onset Date Comments Med Refill 01/17/2024 Encounter Details Date Type Department Care Team ([facility] st Contact Info) Description 01/17/2024 Telephone [facility] MEDICINE 230 [place], [place] [phone] Name, MD Rock 230 [place], [place] [phone] Med Refill Social History Tobacco Use Types [...] tablet To be sent to: [facility] documented in this encounter Plan of Treatment Upcoming Encounters Date Type Department Care Team (Late st Contact Info) Description 07/17/2024 1:00 PM EDT Clinical Support [facility] MEDICINE [address] [place] [address] Corrie Chen RN 09/06/2024 3:30 PM EDT Office Visit [facility] MEDICINE [address] [place] [address] Name, MD Rock [address] [place] [address] documented as of this encounter Visit Diagnoses Not on filedocumented in this encounter Additional Health Concerns Assessment Noted Time PHQ-9 Depression Total Score: 12 024 2:16 PM EDT documented as of this encounter Care Teams Pumper Head Relationship Specialty Start Date End Date Name, MD Rock 230 [place] [address] PCP - General Family Medicine 07/04/15 documented as of this encounter
--- OUTSIDE RECORDS SUMMARY | 2024-07-03 15:03 | XMS_ITS | Encounter Summary ---
Author Organization [employer] Address 75 [facility] 7 [place] [address] Care Team Providers Care Field Service Tech Name Role Phone Name, Rock DE PAZ Primary Care Provider [phone] Reason for Visit * Reason Onset Date Comments Med Refill 03/02/2024 Encounter Details Date Type Department Care Team (Late st Contact Info) Description 03/02/2024 Refill [facility] MEDICINE 230 [place], [place] [phone] Name, MD Rock 230 [place] [address] Social History Tobacco Use Types Packs/Day Years [...] EDT Clinical Support [facility] MEDICINE [address] [place] [address] Corrie Chen RN 09/06/2024 3:30 PM EDT Office Visit [facility] MEDICINE [address] [place] [address] NameRock MD [address] [place] [address] documented as of this encounter Visit Diagnoses Not on filedocumented in this encounter Additional Health Concerns Assessment Noted Time PHQ-9 Depression Total Score: 12 024 2:16 PM EDT documented as of this encounter Care Teams Field Service Tech Relationship Specialty Start Date End Date Name, MD Rock [address] [place] [address] PCP - General Family Medicine 07/04/15 documented as of this encounter
--- OUTSIDE RECORDS SUMMARY | 2024-07-03 15:03 | XMS_ITS | Encounter Summary ---
Author Organization [employer] Address [address] [place] [address] 7 [place] [address] Care Team Providers Care Museum Security Chief Name Role Phone Name, Rock DE PAZ Primary Care Provider [phone] Reason for Visit * Reason Comments Med Refill Encounter Details Date Type Department Care Team ([facility] Contact Info) Description 09/21/2022 Refill [facility] MEDICINE [address] [place] [address] [phone] Name, MD Rock 230 [place] [address] Insomnia, unspecified type; Pain Social History Tobacco [...] Upcoming Encounters Date Type Department Care Team ([facility] Contact Info) Description 07/17/2024 1:00 PM EDT Clinical Support [address] [address] Corrie Chen RN 09/06/2024 3:30 PM EDT Office Visit [address] [address] Name, [place] [address] documented as of this encounter Visit Diagnoses Diagnosis Insomnia, unspecified type Pain Generalized pain documented in this encounter Care Teams Museum Security Chief Relationship Specialty Start Date End Date Name, [place] [address] PCP - General Family Medicine 07/04/15 documented as of this encounter
--- OUTSIDE RECORDS SUMMARY | 2024-07-03 15:03 | XMS_ITS | Encounter Summary ---
Author Organization [employer] Address [address] [place] [address] 7 [place] [address] Care Team Providers Care Shoe Stitcher Name Role Phone Name, Rock DE PAZ Primary Care Provider [phone] Encounter Details Date Type Department Care Team ([facility] Contact Info) Description 09/14/2022 Abstract [facility] MEDICINE [address] [place] [address] Name, MD Rock [address] [place] [address] Social History Tobacco Use Types Packs/Day Years [...] Upcoming Encounters Date Type Department Care Team ([facility] Contact Info) Description 07/17/2024 1:00 PM EDT Clinical Support [address] [address] Corrie Chen RN 09/06/2024 3:30 PM EDT Office Visit [facility] MEDICINE 230 [place] [address] Name, [place] [address] documented as of this encounter Procedures Procedure Name Priority Date/Time Associated Diagnosis Comments COLONOSCOPY Routine 08/21/2014 9:35 AM EDT documented in this encounter Results * Colonoscopy (08/21/2014 9:35 AM EDT) Colonoscopy Normal Normal Narrative Ilda Rivera - 08/21/2014 9:35 AM EDT Recommended 10 year follow up us Historical Provider HEALTH MAINTENANCE Final Result documented in this encounter Visit Diagnoses Not on filedocumented in this encounter Care Teams Shoe Stitcher Relationship Specialty Start Date End Date Name, [place] [address] PCP - General Family Medicine 07/04/15 documented as of this encounter
--- OUTSIDE RECORDS SUMMARY | 2024-07-03 15:03 | XMS_ITS | Encounter Summary ---
Author Organization [employer] Address 75 [facility] 7 [place] [address] Care Team Providers Care Advertising Coordinator Name Role Phone Name, Rock DE PAZ Primary Care Provider [phone] Reason for Visit * Reason Onset Date Comments Med Refill 06/28/2024 Encounter Details Date Type Department Care Team (Late st Contact Info) Description 06/28/2024 Refill [facility] MEDICINE 230 [place], [place] [phone] Name, MD Rock 230 [place], [place] [phone] Hypophosphatemia Social History Tobacco Use Types Packs/Day [...] PM EDT Clinical Support [facility] MEDICINE [address] [place] [address] Corrie Chen RN 09/06/2024 3:30 PM EDT Office Visit [facility] MEDICINE [address] [place] [address] NameRock MD [address] [place] [address] documented as of this encounter Visit Diagnoses Diagnosis Hypophosphatemia Disorders of phosphorus metabolism documented in this encounter Additional Health Concerns Assessment Noted Time PHQ-9 Depression Total Score: 17 025 2:50 PM EST documented as of this encounter Care Teams Advertising Coordinator Relationship Specialty Start Date End Date NameRock MD [address] [place] [address] PCP - General Family Medicine 07/04/15 documented as of this encounter
--- OUTSIDE RECORDS SUMMARY | 2024-07-03 15:04 | XMS_ITS | Encounter Summary ---
Author Organization [employer] Address 75 [facility] 7 [place] [address] Care Team Providers Care Load Checker Name Role Phone Name, Rock DE PAZ Primary Care Provider [phone] Reason for Visit * Reason Onset Date Comments Med Refill 05/08/2024 Encounter Details Date Type Department Care Team (Late st Contact Info) Description 05/08/2024 Refill [facility] MEDICINE 230 [place], [place] [phone] Name, MD Rock 230 [place], [place] [phone] Chronic pain syndrome; Insomnia, unspecified type Social [...] Description 07/17/2024 1:00 PM EDT Clinical Support [facility] MEDICINE [address] [place] [address] Corrie Chen RN 09/06/2024 3:30 PM EDT Office Visit [address] [address] NameRock MD [address] [place] [address] documented as of this encounter Visit Diagnoses Diagnosis Chronic pain syndrome Insomnia, unspecified type documented in this encounter Additional Health Concerns Assessment Noted Time PHQ-9 Depression Total Score: 12 024 2:16 PM EDT documented as of this encounter Care Teams Load Checker Relationship Specialty Start Date End Date NameRock MD [address] [place] [address] PCP - General Family Medicine 07/04/15 documented as of this encounter
--- OUTSIDE RECORDS SUMMARY | 2024-07-03 15:04 | XMS_ITS | Encounter Summary ---
Author Organization [employer] Address 75 [facility] 7 [place] [address] Care Team Providers Care Registered Representative Name Role Phone Name, Rock DE PAZ Primary Care Provider [phone] Reason for Visit * Reason Onset Date Comments Med Refill 02/09/2024 Encounter Details Date Type Department Care Team (Late st Contact Info) Description 02/09/2024 Refill [facility] MEDICINE 230 [place], [place] [phone] Name, MD Rock 230 [place], [place] [phone] Chronic pain syndrome Social History Tobacco Use [...] [facility] MEDICINE [address] [place] [address] Corrie Chen RN 09/06/2024 3:30 PM EDT Office Visit [facility] MEDICINE [address] [place] [address] Name, MD Rock [address] [place] [address] documented as of this encounter Visit Diagnoses Diagnosis Chronic pain syndrome documented in this encounter Additional Health Concerns Assessment Noted Time PHQ-9 Depression Total Score: 12 024 2:16 PM EDT documented as of this encounter Care Teams Registered Representative Relationship Specialty Start Date End Date Name, MD Rock [address] [place] [address] PCP - General Family Medicine 07/04/15 documented as of this encounter
--- OUTSIDE RECORDS SUMMARY | 2024-07-03 15:04 | XMS_ITS | Encounter Summary ---
Author Organization [employer] Address 75 [facility] 7 [place] [address] Care Team Providers Care Administration Intern Name Role Phone Name, Rock DE PAZ Primary Care Provider [phone] Reason for Visit * Reason Comments Med Refill Encounter Details Date Type Department Care Team (Late st Contact Info) Description 11/26/[address] [facility] MEDICINE 230 [place], [place] [phone] Name, MD Rock 230 [place] [address] Chronic pain syndrome Social History Tobacco Use [...] 07/17/2024 1:00 PM EDT Clinical Support [address] [address] Corrie Chen, RN 09/06/2024 3:30 PM EDT Office Visit [address] [address] Name, MD Rock [address] [place] [address] documented as of this encounter Visit Diagnoses Diagnosis Chronic pain syndrome documented in this encounter Additional Health Concerns Assessment Noted Time PHQ-9 Depression Total Score: 21 11/20/ 023 10:14 AM EDT documented as of this encounter Care Teams Administration Intern Relationship Specialty Start Date End Date Name, MD Rock [address] [place] [address] PCP - General Family Medicine 07/04/15 documented as of this encounter
--- OUTSIDE RECORDS SUMMARY | 2024-07-03 15:04 | XMS_ITS | Encounter Summary ---
Author Organization [employer] Address 75 [facility] 7 [place] [address] Care Team Providers Care Multimedia Programmer Name Role Phone Name, Rock DE PAZ Primary Care Provider [phone] Reason for Visit * Reason Comments Med Refill Encounter Details Date Type Department Care Team (Late st Contact Info) Description 11/20/2022 Refill [facility] MEDICINE 230 [place] [address] Fany Pearson MD 230 [place] [address] Chronic pain syndrome; Insomnia, unspecified type Social [...] Description 07/17/2024 1:00 PM EDT Clinical Support [address] [address] Corrie Chen, RN 09/06/2024 3:30 PM EDT Office Visit [address] [address] Name, MD Rock [address] [place] [address] documented as of this encounter Visit Diagnoses Diagnosis Chronic pain syndrome Insomnia, unspecified type documented in this encounter Additional Health Concerns Assessment Noted Time PHQ-9 Depression Total Score: 21 11/20/ 023 10:14 AM EDT documented as of this encounter Care Teams Multimedia Programmer Relationship Specialty Start Date End Date Rock Rodrigues MD [address] [place] [address] PCP - General Family Medicine 07/04/15 documented as of this encounter
--- OUTSIDE RECORDS SUMMARY | 2024-07-03 15:04 | XMS_ITS | Encounter Summary ---
Author Organization [employer] Address 75 [facility] 7 [place] [address] Care Team Providers Care Heel Cover Softener Name Role Phone Name, Rock DE PAZ Primary Care Provider [phone] Reason for Visit * Reason Onset Date Comments Med Refill 02/09/2024 Encounter Details Date Type Department Care Team (Late st Contact Info) Description 02/09/2024 Refill [facility] MEDICINE 230 [place], [place] [phone] Name, MD Rock 230 [place], [place] [phone] Insomnia, unspecified type Social History Tobacco Use [...] Clinical Support [facility] MEDICINE [address] [place] [address] Corrie Chen RN 09/06/2024 3:30 PM EDT Office Visit [facility] MEDICINE [address] [place] [address] NameRock MD [address] [place] [address] documented as of this encounter Visit Diagnoses Diagnosis Insomnia, unspecified type documented in this encounter Additional Health Concerns Assessment Noted Time PHQ-9 Depression Total Score: 12 024 2:16 PM EDT documented as of this encounter Care Teams Heel Cover Softener Relationship Specialty Start Date End Date Name, MD Rock [address] [place] [address] PCP - General Family Medicine 07/04/15 documented as of this encounter
--- OUTSIDE RECORDS SUMMARY | 2024-07-03 15:04 | XMS_ITS | Encounter Summary ---
Author Organization [employer] Address 75 [facility] 7 [place] [address] Care Team Providers Care Merchandise Execution Leader Name Role Phone Name, Rock DE PAZ Primary Care Provider Reason for Visit * Reason Onset Date Comments Med Refill 02/09/2024 Encounter Details Date Type Department Care Team (Late st Contact Info) Description 02/09/2024 Refill [facility] MEDICINE 230 [place], [place] [phone] Name, MD Rock 230 [place] [address] Social History Tobacco Use Types Packs/Day Years [...] 1:00 PM EDT Clinical Support [facility] MEDICINE [address] [place] [address] Corrie Chen RN 09/06/2024 3:30 PM EDT Office Visit [facility] MEDICINE [address] [place] [address] NameRock MD [address] [place] [address] documented as of this encounter Visit Diagnoses Not on filedocumented in this encounter Additional Health Concerns Assessment Noted Time PHQ-9 Depression Total Score: 12 024 2:16 PM EDT documented as of this encounter Care Teams Merchandise Execution Leader Relationship Specialty Start Date End Date Name, MD Rock [address] [place] [address] PCP - General Family Medicine 07/04/15 documented as of this encounter
--- OUTSIDE RECORDS SUMMARY | 2024-07-03 15:04 | XMS_ITS | Encounter Summary ---
Author Organization [employer] Address 75 [facility] 7 [place] [address] Care Team Providers Care Director Of Resource Development Name Role Phone Name, Rock DE PAZ Primary Care Provider [phone] Reason for Visit * Reason Comments Med Refill Encounter Details Date Type Department Care Team (Late st Contact Info) Description 11/23/2022 Refill [facility] MEDICINE 230 [place] [address] Fany Pearson MD 230 [place] [address] Chronic pain syndrome; Insomnia, unspecified type Social [...] Description 07/17/2024 1:00 PM EDT Clinical Support [address] [address] Corrie Chen, RN 09/06/2024 3:30 PM EDT Office Visit [address] [address] Name, MD Rock [address] [place] [address] documented as of this encounter Visit Diagnoses Diagnosis Chronic pain syndrome Insomnia, unspecified type documented in this encounter Additional Health Concerns Assessment Noted Time PHQ-9 Depression Total Score: 21 11/20/ 023 10:14 AM EDT documented as of this encounter Care Teams Director Of Resource Development Relationship Specialty Start Date End Date Rock Rodrigues MD [address] [place] [address] PCP - General Family Medicine 07/04/15 documented as of this encounter
--- OUTSIDE RECORDS SUMMARY | 2024-07-03 15:04 | XMS_ITS | Encounter Summary ---
Author Organization [employer] Address 75 [facility] 7 [place] [address] Care Team Providers Care Associate Professor Of Theatre Name Role Phone Name, Rock DE PAZ Primary Care Provider [phone] Reason for Visit * Reason Onset Date Comments Med Refill 01/31/2024 Encounter Details Date Type Department Care Team ([facility] st Contact Info) Description 01/31/2024 Refill [facility] MED & PEDS 505 [place] [address] Juhi Diaz, WILLOW ANALYST 505 [place] [address] Chronic pain syndrome; Insomnia, unspecified type Social [...] 07/17/2024 1:00 PM EDT Clinical Support [facility] MEDICINE [address] [place] [address] Corrie Chen RN 09/06/2024 3:30 PM EDT Office Visit [facility] MEDICINE [address] [place] [address] NameRock MD [address] [place] [address] documented as of this encounter Visit Diagnoses Diagnosis Chronic pain syndrome Insomnia, unspecified type documented in this encounter Additional Health Concerns Assessment Noted Time PHQ-9 Depression Total Score: 12 024 2:16 PM EDT documented as of this encounter Care Teams Associate Professor Of Theatre Relationship Specialty Start Date End Date NameRock MD [address] [place] [address] PCP - General Family Medicine 07/04/15 documented as of this encounter
--- OUTSIDE RECORDS SUMMARY | 2024-07-03 15:04 | XMS_ITS | Encounter Summary ---
Author Organization [employer] Address 75 [facility] 7 [place] [address] Care Team Providers Care Director Embalmer Name Role Phone Name, Rock DE PAZ Primary Care Provider [phone] Reason for Visit * Reason Comments Med Refill Encounter Details Date Type Department Care Team (Late st Contact Info) Description 11/18/2022 Refill [facility] MEDICINE 230 [place], [place] [phone] Name, MD Rock 230 [place] [address] Chronic pain syndrome Social History Tobacco Use [...] Description 07/17/2024 1:00 PM EDT Clinical Support [address] [address] Corrie Chen, RN 09/06/2024 3:30 PM EDT Office Visit [address] [address] Name, MD Rock [address] [place] [address] documented as of this encounter Visit Diagnoses Diagnosis Chronic pain syndrome documented in this encounter Care Teams Director Embalmer Relationship Specialty Start Date End Date Rock Rodrigues MD [address] [place] [address] PCP - General Family Medicine 07/04/15 documented as of this encounter
--- OUTSIDE RECORDS SUMMARY | 2024-07-03 15:04 | XMS_ITS | Encounter Summary ---
Author Organization [employer] Address 75 [facility] 7 [place] [address] Care Team Providers Care Bagging Machine Operator Name Role Phone Name, Rock DE PAZ Primary Care Provider [phone] Reason for Visit * Reason Onset Date Comments Med Refill 05/08/2024 Encounter Details Date Type Department Care Team ([facility] st Contact Info) Description 05/08/2024 Refill [facility] MED & PEDS 505 [place] [address] Name, MD Rock 230 [place] [address] Rhinorrhea Social History Tobacco Use Types Packs/Day [...] EDT Clinical Support [facility] MEDICINE [address] [place] [address] Corrie Chen RN 09/06/2024 3:30 PM EDT Office Visit [address] [address] NameRock MD [address] [place] [address] documented as of this encounter Visit Diagnoses Diagnosis Rhinorrhea Other diseases of nasal cavity and sinuses documented in this encounter Additional Health Concerns Assessment Noted Time PHQ-9 Depression Total Score: 12 024 2:16 PM EDT documented as of this encounter Care Teams Bagging Machine Operator Relationship Specialty Start Date End Date NameRock MD [address] [place] [address] PCP - General Family Medicine 07/04/15 documented as of this encounter
--- OUTSIDE RECORDS SUMMARY | 2024-07-03 15:04 | XMS_ITS | Encounter Summary ---
Author Organization [employer] Address 75 [facility] 7 [place] [address] Care Team Providers Care Tankroom Tender Name Role Phone Name, Rock DE PAZ Primary Care Provider [phone] Reason for Visit * Reason Onset Date Comments Med Refill 06/04/2024 Encounter Details Date Type Department Care Team (Late st Contact Info) Description 06/04/2024 Refill [facility] MEDICINE 230 [place], [place] [phone] Cheyenne Finnegan DO 230 [place], [place] [phone] Insomnia, unspecified type; Hypophosphatemia Social History Tobacco [...] Description 07/17/2024 1:00 PM EDT Clinical Support [facility] MEDICINE [address] [place] [address] Corrie Chen RN 09/06/2024 3:30 PM EDT Office Visit [facility] MEDICINE [address] [place] [address] NameRock MD [address] [place] [address] documented as of this encounter Visit Diagnoses Diagnosis Insomnia, unspecified type Hypophosphatemia Disorders of phosphorus metabolism documented in this encounter Additional Health Concerns Assessment Noted Time PHQ-9 Depression Total Score: 17 025 2:50 PM EST documented as of this encounter Care Teams Tankroom Tender Relationship Specialty Start Date End Date NameRock MD [address] [place] [address] PCP - General Family Medicine 07/04/15 documented as of this encounter
--- OUTSIDE RECORDS SUMMARY | 2024-07-03 15:04 | XMS_ITS | Encounter Summary ---
Author Organization [employer] Address 75 [facility] 7 [place] [address] Care Team Providers Care Epoxy Coatings Installer Name Role Phone Name, Rock DE PAZ Primary Care Provider [phone] Reason for Visit * Reason Comments Med Refill Encounter Details Date Type Department Care Team (Late st Contact Info) Description 06/04/2024 Refill [facility] MEDICINE 230 [place], [place] [phone] Agnieszka Arvizu MD 230 [place] [address] Insomnia, unspecified type Social History Tobacco Use [...] [facility] MEDICINE [address] [place] [address] Corrie Chen, SCOUT 09/06/2024 3:30 PM EDT Office Visit [facility] MEDICINE [address] [place] [address] Name, MD Rock [address] [place] [address] documented as of this encounter Visit Diagnoses Diagnosis Insomnia, unspecified type documented in this encounter Additional Health Concerns Assessment Noted Time PHQ-9 Depression Total Score: 17 025 2:50 PM EST documented as of this encounter Care Teams Epoxy Coatings Installer Relationship Specialty Start Date End Date Name, MD Rock [address] [place] [address] PCP - General Family Medicine 07/04/15 documented as of this encounter
--- OUTSIDE RECORDS SUMMARY | 2024-07-03 15:04 | XMS_ITS | Encounter Summary ---
Author Organization [employer] Address 75 [facility] 7 [place] [address] Care Team Providers Care Field Cane Scale Clerk Name Role Phone Name, Rock DE PAZ Primary Care Provider [phone] Reason for Visit * Reason Onset Date Comments Med Refill 02/09/2024 Encounter Details Date Type Department Care Team (Late st Contact Info) Description 02/09/2024 Refill [facility] MEDICINE 230 [place], [place] [phone] Name, MD Rock 230 [place], [place] [phone] Chronic pain syndrome; Insomnia, unspecified type Social [...] 1:00 PM EDT Clinical Support [facility] MEDICINE [address] [place] [address] Corrie Chen RN 09/06/2024 3:30 PM EDT Office Visit [address] [address] NameRock MD [address] [place] [address] documented as of this encounter Visit Diagnoses Diagnosis Chronic pain syndrome Insomnia, unspecified type documented in this encounter Additional Health Concerns Assessment Noted Time PHQ-9 Depression Total Score: 12 024 2:16 PM EDT documented as of this encounter Care Teams Field Cane Scale Clerk Relationship Specialty Start Date End Date NameRock MD [address] [place] [address] PCP - General Family Medicine 07/04/15 documented as of this encounter
== END 2024-07-03 13:42 | disposition home or self-care (01) ==
PROVIDERS: PCP Internal Medicine Geriatric Medicine; Visit Provider Student in an Organized Health Care Education/Training Program
DX: Z85.850 Personal history of malignant neoplasm of thyroid (principal); E89.0 Postprocedural hypothyroidism
CPT/HCPCS: 99213

== ENCOUNTER 2024-07-03 13:19 | Outpatient (REF) | payer MEDICARE, SELFPAY ==
[2024-07-03 15:11] LABS: Free T4 (Free Thyroxine) 1.21 ng/dL (0.71-1.85); Thyroid Stimulating Hormone 1.18 uIU/mL (0.32-4.0)
--- OUTSIDE RECORDS SUMMARY | 2024-07-03 15:36 | XMS_ITS | Encounter Summary ---
Author Organization [employer] Address [address] [place] [address] 7 [place] [address] Care Team Providers Care Theatre Professor Name Role Phone Name, Rock DE PAZ Primary Care Provider [phone] Reason for Visit * Reason Comments Med Refill Encounter Details Date Type Department Care Team (Late st Contact Info) Description 04/08/2022 Refill [facility] MED & PEDS 505 [place] [address] Yoni Mccormick MD [address] [place] [address] [phone] Social History Tobacco Use Types Packs/Day Years [...] 1:00 PM EDT Clinical Support [facility] MEDICINE [address] [place] [address] [phone] Corrie Chen, RN 09/06/2024 3:30 PM EDT Office Visit [facility] MEDICINE [address] [place] [address] [phone] Ravi, MD Rock [address] [place] [address] [phone] documented as of this encounter Visit Diagnoses Not on filedocumented in this encounter Care Teams Theatre Professor Relationship Specialty Start Date End Date Name, MD Rock 230 [place] [address] PCP - General Family Medicine 07/04/15 documented as of this encounter
--- OUTSIDE RECORDS SUMMARY | 2024-07-03 15:36 | XMS_ITS | Encounter Summary ---
Author Organization [employer] Address 75 [facility] 7t [place] [address] Care Team Providers Care Supervisor Poultry Processing Name Role Phone Name, Rock DE PAZ Primary Care Provider [phone] Encounter Details Date Type Department Care Team ([facility] st Contact Info) Description 05/20/2023 Telephone [facility] MEDICINE 230 [place], [place] [phone] Name, MD Rock 230 [place] [address] Social History Tobacco Use Types Packs/Day Years [...] 1:00 PM EDT Clinical Support [facility] MEDICINE [address] [place] [phone] Corrie Chen RN 09/06/2024 3:30 PM EDT Office Visit [facility] MEDICINE [address] [place] [address] NameRock MD [address] [place] [address] documented as of this encounter Visit Diagnoses Not on filedocumented in this encounter Additional Health Concerns Assessment Noted Time PHQ-9 Depression Total Score: 21 11/20/ 023 10:14 AM EDT documented as of this encounter Care Teams Supervisor Poultry Processing Relationship Specialty Start Date End Date Rock Rodrigues MD [address] [place] [address] PCP - General Family Medicine 07/04/15 documented as of this encounter
--- OUTSIDE RECORDS SUMMARY | 2024-07-03 15:36 | XMS_ITS | Encounter Summary ---
Author Organization [employer] Address [address] [place] [address] 7 [place] [address] Care Team Providers Care Continuous Improvement Facilitator Name Role Phone Name, Rock DE PAZ Primary Care Provider [phone] Reason for Visit * Reason Comments Med Refill Encounter Details Date Type Department Care Team ([facility] Contact Info) Description 09/21/2022 Refill [facility] MEDICINE [address] [place] [address] [phone] Name, MD Rock 230 [place] [address] Insomnia, unspecified type; Pain Social History Tobacco [...] Upcoming Encounters Date Type Department Care Team ([facility] Contact Info) Description 07/17/2024 1:00 PM EDT Clinical Support [address] [address] Corrie Chen RN 09/06/2024 3:30 PM EDT Office Visit [address] [address] Name, [place] [address] documented as of this encounter Visit Diagnoses Diagnosis Insomnia, unspecified type Pain Generalized pain documented in this encounter Care Teams Continuous Improvement Facilitator Relationship Specialty Start Date End Date Name, [place] [address] PCP - General Family Medicine 07/04/15 documented as of this encounter
--- OUTSIDE RECORDS SUMMARY | 2024-07-03 15:36 | XMS_ITS | Encounter Summary ---
Author Organization [employer] Address 75 [facility] 7 [place] [address] Care Team Providers Care Plating Tank Operator Apprentice Name Role Phone Name, Rock DE PAZ Primary Care Provider [phone] Reason for Visit * Reason Onset Date Comments Med Refill 01/17/2024 Encounter Details Date Type Department Care Team ([facility] st Contact Info) Description 01/17/2024 Telephone [facility] MEDICINE 230 [place], [place] [phone] Name, MD Rock 230 [place], [place] [phone] Med Refill Social History Tobacco Use Types [...] 10 [facility] documented in this encounter Plan of Treatment Upcoming Encounters Date Type Department Care Team (Late st Contact Info) Description 07/17/2024 1:00 PM EDT Clinical Support [facility] MEDICINE [address] [place] [address] Corrie Chen RN 09/06/2024 3:30 PM EDT Office Visit [facility] MEDICINE [address] [place] [address] Name, MD Rock [address] [place] [address] documented as of this encounter Visit Diagnoses Not on filedocumented in this encounter Additional Health Concerns Assessment Noted Time PHQ-9 Depression Total Score: 12 024 2:16 PM EDT documented as of this encounter Care Teams Plating Tank Operator Apprentice Relationship Specialty Start Date End Date Name, MD Rock 230 [place] [address] PCP - General Family Medicine 07/04/15 documented as of this encounter
--- OUTSIDE RECORDS SUMMARY | 2024-07-03 15:36 | XMS_ITS | Encounter Summary ---
Author Organization [employer] Address [address] [place] [address] 7 [place] [address] Care Team Providers Care Consumer Lender Name Role Phone Name, Rock DE PAZ Primary Care Provider [phone] Encounter Details Date Type Department Care Team (Late Contact Info) Description 04/30/2022 Orders Only [facility] MED & PEDS [address] [place] [address] Cheyenne Sánchez LPN Social History Tobacco Use [...] 07/17/2024 1:00 PM EDT Clinical Support [facility] MEDICINE [address] [place] [address] [phone] Corrie Chen RN 09/06/2024 3:30 PM EDT Office Visit [address] [phone] Rock Rodrigues MD [address] [place] [address] documented as of this encounter Procedures Procedure [...] N Telopetide (NTx) 50 see note [facility] Comment:Result Units: nM BCE /mM creatPremenopausal Females: 4 - 64 nM BCE/mM creatResults are primarily used for monitoring theresponse to therapy. A value within thepremenopausal range does not rule out osteoporosisnor the need for therapyUnits of Measure: nM BCE/mM creat CREATININE, RANDOM URINE 114 20 - 275 mg/dL [facility] Comment:THIS TEST WAS PERFOR MED AT:[facility] [place] [address]TMMUZEZCARMELITA WRIGHT MD,PHD 05/04/2022 3:06 PM EST 05/04/2022 3:22 PM EST [facility] External Provider LAB URI NE ORDERABLES Final Result Performing Organization Address [facility]/ZIP Co de Phone Number [facility] [address] [place] [phone] * Protein Electrophoresis and [place]/Lambda Light Chains (05/04/2022 2:30 PM EST) Prot Elec - Total Protein 7.0 6.1 - 8.1 g/dL [facility] Prot Elec - Albumin 4.2 3.8 - 4.8 g/dL [facility] Prot Elec - Alpha1 0.3 0.2 - 0.3 g/dL [facility] Prot Elec - Alpha2 0.8 0.5 - 0.9 g/dL [facility] Prot Elec - Beta 1 0.6 0.4 - 0.6 g/dL [facility] Prot Elec - Beta 2 0.3 0.2 - 0.5 g/dL [facility] Prot Elec - Gamma 0.8 0.8 - 1.7 g/dL [facility] PES - Abn Protein Band 1 TNP [facility] PES-Abn Protein Band 2 TNP [facility] PES-Abn Protein Band 3 [facility] Prot Elec - Interpretation SEE NOTE [facility] Comment:Normal Electrophoret ic PatternTHIS TEST WAS PERFORMED AT:[facility] [address] ([address])[place] [address]GLXSGNANCY ADKINS MD 05/04/2022 2:30 PM EST 05/04/2022 2:33 PM EST [facility] External Provider LAB BLO OD ORDERABLES Final Result Performing Organization Address City/[facility] [address]/[facility] Co de Phone Number [facility] [address] [place] [phone] * Alkaline Phosphatase, Bone Specific (05/04/2022 2:30 PM EST) Alkaline Phosphatase, Bone Specific 11.6 5.6 - 29.0 mcg/L [facility] Comment:Reference Range, Pre menopausal (mcg/L) 35-45 years 5.0-18.2THIS TEST WAS PERFORMED AT:[facility] [place] [address]MBBLVFUCARMELITA WRIGHT MD,PHD 05/04/2022 2:30 PM EST 05/04/2022 2:33 PM EST [facility] External Provider LAB BLO OD ORDERABLES Final Result Performing Organization Address City/[facility] [address]/ZIP Co de Phone Number [facility] [address] [place] [phone] * Thyroid Peroxidase And Thyroglobulin Antibodies (05/04/2022 2:30 PM EST) Pathologist [facility] Thyroglobulin Antibodies <1 < or = 1 IU/mL [facility] Comment:THIS TEST WAS PERFOR MED AT:[facility] [address] ([facility] [address]UELTBNANCY ADKINS MD 05/04/2022 2:30 PM EST 05/04/2022 2:33 PM EST [facility] External Provider LAB BLO OD ORDERABLES Final Result [facility] [address] [place] [phone] * (ABNORMAL) Thyroglobulin, LC/MS/MS (05/04/2022 2:30 PM EST) Pathologist [facility] Thyroglobulin, LC/MS/MS <0.1(A) ng/mL [facility] Comment:Reference Range: In tact Thyroid 2.8-40.9 Athyrotic <0.1 Note: Abnormal flagging is based on the reference interval for patients with intact thyroid.This test was performed using the Kristen Coulterchemiluminescent method. Values obtained fromdifferent assay methods cannot be usedinterchangeably. Thyroglobulin levels, regardlessof value, should not be interpreted as absoluteevidence of the presence or absence of disease. Thyroglobulin Comment See Below [facility] Comment:Thyroglobulin antibo dies (TGAB) interfere withthyroglobulin (TG) assays; therefore, TGAB assayshould always be performed in conjunction with aTG assay.For additional information, please refer tohttp://education.Gateway EDI/faq/HQJ004(This link is being provided for informational/educational purposes only.)THIS TEST WAS PERFORMED AT:[email or web address] [place] [address] ([facility] [address]VHFDMNANCY ADKINS MD 05/04/2022 2:30 PM EST 05/04/2022 2:33 PM EST us [facility] External Provider LAB BLO OD ORDERABLES Final Result [facility] [address] [place] [phone] * PTH, Intact Without Calcium (05/04/2022 2:30 PM EST) PTHI 73 16 - 77 pg/mL [facility] Comment:Interpretive Guide I ntact PTH Calcium -------Normal Parathyroid Normal NormalHypoparathyroidism Low or Low Normal LowHyperparathyroidism Primary Normal or High High Secondary High Normal or Low Tertiary High HighNon-Parathyroid Hypercalcemia Low or Low Normal High Calcium (PTHI) 8.9 8.6 - 10.4 mg/dL [facility] Comment:THIS TEST WAS PERFOR MED AT:[email or web address] [place] [address] ([facility] [address]QETGINANCY ADKINS MD 05/04/2022 2:30 PM EST 05/04/2022 2:33 PM EST [facility] External Provider LAB BLO OD ORDERABLES Final Result Performing Organization Address City/[facility] [address]/ZIP Co de Phone Number [facility] [address] [place] [phone] * TSH (05/04/2022 2:30 PM EST) Thyroid Stimulating Hormone 3.46 0.32 - 4.0 uIU/mL [facility] Comment:Note: A sustained TS H level above 2.5 uIU/mL may warrant further investigation. TSH 3rd Generation ([facility]) 05/04/2022 2:30 PM EST 05/04/2022 2:33 PM EST [facility] External Provider LAB BLO OD ORDERABLES Final Result Performing Organization Address [facility] [address]/ZIP Co de Phone Number [facility] [address] [place] [phone] * T4, Free (05/04/2022 2:30 PM EST) Free T4 (Free Thyroxine) 1.14 0.71 - 1.85 ng/dL [facility] 05/04/2022 2:30 PM EST 05/04/2022 2:33 PM EST [facility] External Provider LAB BLO OD ORDERABLES Final Result Performing Organization Address City/[facility] [address]/ZIP Co de Phone Number [facility] [address] [place] [phone] * Vitamin D, 25-Hydroxy, Total, Immunoassay (05/04/2022 2:30 PM EST) Vitamin D 25-OH Total 25.8 >30 ng/mL [facility] Comment:Health Based Referen ce Values*< 20 ng/mL Tvzziddwh68-12 ng/mL Insufficient> 30 ng/mL Sufficient*Elver KRUSE. N [...] 2:30 PM EST 05/04/2022 2:33 PM EST [facility] External Provider LAB BLO OD ORDERABLES Final Result Performing Organization Address [facility] [address]/ZIP Co de Phone Number [facility] [address] [place] [phone] * Phosphate (As Phosphorus) (05/04/2022 2:30 PM EST) Phosphorus 3.0 2.7 - 4.5 mg/dL [facility] 05/04/2022 2:30 PM EST 05/04/2022 2:33 PM EST [facility] External Provider LAB BLO OD ORDERABLES Final Result Performing Organization Address [facility] [address]/[facility] Co de Phone Number [facility] [address] [place] [phone] * Comprehensive Metabolic Panel (05/04/2022 2:30 PM EST) Sodium 138 135 - 145 mmol/L [facility] Potassium 4.8 3.3 - 5.1 mmol/L [facility] Chloride 106 96 - 108 mmol/L [facility] Carbon Dioxide 24 22 - 29 mmol/L [facility] Anion Gap 13 12 - 20 [facility] Urea Nitrogen (BUN) 15 9 - 16 mg/dL [facility] Creatinine, Serum 0.85 0.5 - 1.4 mg/dL [facility] Estimated Glomerular Filt Rate >60 [facility] Comment:NOTE: For -Am erican individuals, multiply the result by 1.210.Chronic Kidney Disease: Estimated GFR < 60 mL/min/1.47g8Ioaqdf Kidney Disease: Estimated GFR < 15 mL/min/1.73m2 Glucose 90 60 - 115 mg/dL [facility] Calcium 9.0 8.4 - 10.2 mg/dL [facility] Bilirubin, Total 0.3 0.0 - 1.0 mg/dL [facility] Aspartate Amino Transferase 26 5 - 31 U/L [facility] Alanine Aminotransferase 28 0 - 31 U/L [facility] Total Protein 6.8 6.5 - 8.0 g/dL [facility] Albumin Level 4.2 3.5 - 5.0 g/dL [facility] Alkaline Phosphatase 61 39 - 117 U/L [facility] 05/04/2022 2:30 PM EST 05/04/2022 2:33 PM EST us [facility] External Provider LAB BLO OD ORDERABLES Final Result [facility] [address] [place] [phone] documented in this encounter Visit Diagnoses Not on filedocumented in this encounter Care Teams Consumer Lender Relationship Specialty Start Date End Date Name, MD Rock [address] [place] [address] PCP - General Family Medicine 07/04/15 documented as of this encounter
--- OUTSIDE RECORDS SUMMARY | 2024-07-03 15:36 | XMS_ITS | Encounter Summary ---
Author Organization [employer] Address [address] [facility] 7 [place] [address] Care Team Providers Care Clay Dry Press Helper Name Role Phone Name, Rock DE PAZ Primary Care Provider [phone] Reason for Visit * Reason Onset Date Comments Med Refill 04/27/2024 Encounter Details Date Type Department Care Team (Late st Contact Info) Description 04/27/2024 Refill [facility] [address] [place], [place] [phone] Name, MD Rock [address] [place], [place] [phone] Chronic pain syndrome Social History Tobacco Use [...] 1:00 PM EDT Clinical Support [facility] [address] [place] [address] Corrie Chen RN 09/06/2024 3:30 PM EDT Office Visit [facility] [address] [place] [address] Name, MD Rock [address] [place] [address] documented as of this encounter Visit Diagnoses Diagnosis Chronic pain syndrome documented in this encounter Additional Health Concerns Assessment Noted Time PHQ-9 Depression Total Score: 12 024 2:16 PM EDT documented as of this encounter Care Teams Clay Dry Press Helper Relationship Specialty Start Date End Date Name, MD Rock [address] [place] [phone] PCP - General Family Medicine 07/04/15 documented as of this encounter
--- OUTSIDE RECORDS SUMMARY | 2024-07-03 15:36 | XMS_ITS | Encounter Summary ---
Author Organization [employer] Address [address] [facility] 7t [place] [address] Care Team Providers Care Asphalt Paving Machine Operator Name Role Phone Name, Rock DE PAZ Primary Care Provider [phone] Reason for Visit * Reason Comments Med Refill Encounter Details Date Type Department Care Team (Late st Contact Info) Description 04/26/2023 Refill [facility] [address] [place], [place] [phone] Name, MD Rock [address] [place], [place] [phone] Insomnia, unspecified type Social History Tobacco Use [...] Description 07/17/2024 1:00 PM EDT Clinical Support [address] [address] Corrie Chen RN 09/06/2024 3:30 PM EDT Office Visit [address] [address] Name, MD Rock [address] [place] [address] documented as of this encounter Visit Diagnoses Diagnosis Insomnia, unspecified type documented in this encounter Additional Health Concerns Assessment Noted Time PHQ-9 Depression Total Score: 21 11/20/ 023 10:14 AM EDT documented as of this encounter Care Teams Asphalt Paving Machine Operator Relationship Specialty Start Date End Date NameRock MD [address] [place] [phone] PCP - General Family Medicine 07/04/15 documented as of this encounter
--- OUTSIDE RECORDS SUMMARY | 2024-07-03 15:36 | XMS_ITS | Encounter Summary ---
Author Organization [employer] Address [address] [place] [address] 7 [place] [address] Care Team Providers Care Seasonal Delivery Driver Name Role Phone Name, Rock DE PAZ Primary Care Provider [phone] Encounter Details Date Type Department Care Team ([facility] Contact Info) Description 09/14/2022 Abstract [facility] MEDICINE [address] [place] [phone] Name, MD Rock [address] [place] [address] Social History Tobacco Use Types Packs/Day Years [...] Upcoming Encounters Date Type Department Care Team ([facility] Contact Info) Description 07/17/2024 1:00 PM EDT Clinical Support [address] [address] Corrie Chen RN 09/06/2024 3:30 PM EDT Office Visit [facility] [address] [place] [address] Name, [place] [address] documented as of this encounter Procedures Procedure [...] on filedocumented in this encounter Care Teams Seasonal Delivery Driver Relationship Specialty Start Date End Date Name, [place] [address] PCP - General Family Medicine 07/04/15 documented as of this encounter
--- OUTSIDE RECORDS SUMMARY | 2024-07-03 15:36 | XMS_ITS | Encounter Summary ---
Author Organization [employer] Address 75 [facility] 7 [place] [address] Care Team Providers Care Service Representative Name Role Phone Name, Rock DE PAZ Primary Care Provider [phone] Reason for Visit * Reason Comments Med Refill Encounter Details Date Type Department Care Team (Late st Contact Info) Description 09/16/2022 Refill [facility] [address] [place] [address] [phone] Name, MD Rock [address] [place] [address] Chronic pain syndrome Social History Tobacco Use [...] Description 07/17/2024 1:00 PM EDT Clinical Support [address] [address] Corrie Chen, SCOUT 09/06/2024 3:30 PM EDT Office Visit [address] [address] Name, [place] [address] documented as of this encounter Visit Diagnoses Diagnosis Chronic pain syndrome documented in this encounter Care Teams Service Representative Relationship Specialty Start Date End Date Name, MD Rock [address] [place] [phone] PCP - General Family Medicine 07/04/15 documented as of this encounter
--- OUTSIDE RECORDS SUMMARY | 2024-07-03 15:36 | XMS_ITS | Encounter Summary ---
Author Organization [employer] Address 75 [facility] 7t [place] [address] Care Team Providers Care Marine Engineer Name Role Phone Name, Rock DE PAZ Primary Care Provider [phone] Encounter Details Date Type Department Care Team (Late st Contact Info) Description 07/03/2024 Orders Only GENERIC EXTERNAL DATA DEPARTMENT Provider, [...] Description 07/17/2024 1:00 PM EDT Clinical Support [address] [address] Corrie Chen RN 09/06/2024 3:30 PM EDT Office Visit [address] [address] Name, MD Rock [address] [place] [address] documented as of this encounter Procedures Procedure Name Priority Date/Time Associated Diagnosis Comments TSH Routine 07/03/2024 1:53 PM EDT T4, FREE Routine 07/03/2024 1:53 PM EDT documented in this encounter Results * TSH (07/03/2024 1:53 PM EDT) Thyroid Stimulating Hormone 1.18 0.32 - 4.0 uIU/mL [facility] Comment:TSH 3rd Generation ( [facility]) 07/03/2024 1:53 PM EDT 07/03/2024 1:53 PM EDT us Generic External Data Provider LAB BLOOD ORDERAB LES Final Result [facility] [address] [place] [phone] * T4, Free (07/03/2024 1:53 PM EDT) Free T4 (Free Thyroxine) 1.21 0.71 - 1.85 ng/dL [facility] 07/03/2024 1:53 PM EDT 07/03/2024 1:53 PM EDT us Generic External Data Provider LAB BLOOD ORDERAB LES Final Result [facility] [address] [place] [address] [phone] documented in this encounter Visit Diagnoses Not on filedocumented in this encounter Additional Health Concerns Assessment Noted Time PHQ-9 Depression Total Score: 17 05/17/ 025 2:50 PM EST documented as of this encounter Care Teams Marine Engineer Relationship Specialty Start Date End Date Name, MD Rock [address] [place] [address] PCP - General Family Medicine 07/04/15 documented as of this encounter
--- OUTSIDE RECORDS SUMMARY | 2024-07-03 15:36 | XMS_ITS | Encounter Summary ---
Author Organization [employer] Address 75 [facility] 7 [place] [address] Care Team Providers Care Grounds Manager Name Role Phone Name, Rock DE PAZ Primary Care Provider [phone] Reason for Visit * Reason Onset Date Comments Medication Question 05/31/2023 Encounter Details Date Type Department Care Team ([facility] st Contact Info) Description 05/31/2023 Telephone [facility] [address] [place] [address] [phone] Name, MD Rock [address] [place], [place] [phone] Medication Question Social History Tobacco Use Types [...] a week . pt. Advised to call Aviation Electronics Technician because medication was prescribe by Aviation Electronics Technician. Pt. States director of labor and delivery also prescribe blood works before prescribing these medication, but as per pt. PCP is managing kidney related function and low phosphorus so want to discuss about these medication. Pt. Advised that message will be sent to PCP for review. Please review and advise. Tc from pt requesting to speak with provider in regards to two medications that are being offered by the Aviation Electronics Technician which are Pimwall which has to be injected every single day and Levaradi which is once a week . Pt would like to discuss this with PCP or nurse to verify if it's okay and which medication should she go for due to her medical History. Please contact pt @ [phone] * Telephone Encounter - Esperanza Bravo - 05/31/2023 2:02 PM EST Tc from pt requesting to speak with provider in regards to two medications that are being offered by the Aviation Electronics Technician which are Pimwall which has to be injected every single day and Levaradi whichis once a week . Pt would like to discuss this with PCP or nurse to verify if it's okay and which medication should she go for due to her medical History. Please contact pt @ [phone] documented in this encounter Plan of Treatment Upcoming Encounters Date Type Department Care Team (Late st Contact Info) Description 07/17/2024 1:00 PM EDT Clinical Support [facility] [address] [place] [address] Corrie Chen RN 09/06/2024 3:30 PM EDT Office Visit [address] [address] Name, MD Rock [address] [place] [address] documented as of this encounter Visit Diagnoses Not on filedocumented in this encounter Additional Health Concerns Assessment Noted Time PHQ-9 Depression Total Score: 21 023 10:14 AM EDT documented as of this encounter Care Teams Grounds Manager Relationship Specialty Start Date End Date Name, MD Rock [address] [place] [address] PCP - General Family Medicine 07/04/15 documented as of this encounter
--- OUTSIDE RECORDS SUMMARY | 2024-07-03 15:36 | XMS_ITS | Encounter Summary ---
Author Organization [employer] Address [address] [place] [address] 7 [place] [address] Care Team Providers Care Regional Intermodal Truck Driver Name Role Phone NameRock MD Primary Care Provider [phone] Encounter Details Date Type Department Care Team (Late Contact Info) Description 05/06/2022 Orders Only [address] [address] Karen Falk LPN Social History Tobacco Use [...] 07/17/2024 1:00 PM EDT Clinical Support [address] [address] Corrie Chen RN 09/06/2024 3:30 PM EDT Office Visit [address] [phone] Name, MD Rock [address] [place] [address], [place] [address] documented as of this encounter Visit Diagnoses Not on filedocumented in this encounter Care Teams Regional Intermodal Truck Driver Relationship Specialty Start Date End Date Name, MD Rock [address] [place] [address] PCP - General Family Medicine 07/04/15 documented as of this encounter
--- OUTSIDE RECORDS SUMMARY | 2024-07-03 15:37 | XMS_ITS | Encounter Summary ---
Author Organization [employer] Address [address] [place] [address] Care Team Providers Care Computer Security Specialist Name Role Phone Name, Rock DE PAZ Primary Care Provider [phone] Reason for Visit * Reason Comments Med Refill Encounter Details Date Type Department Care Team ([facility] st Contact Info) Description 03/04/2023 Refill [facility] [address] [place] [address] Christine Doe, QUENTIN [address] [place] [address] Dept [place] [address] Social History Tobacco Use Types Packs/Day Years [...] 1:00 PM EDT Clinical Support [facility] [address] [place] [address] Corrie Chen RN 09/06/2024 3:30 PM EDT Office Visit [facility] [address] [place] [address] Name, MD Rock [address] [place] [address] documented as of this encounter Visit Diagnoses Not on filedocumented in this encounter Additional Health Concerns Assessment Noted Time PHQ-9 Depression Total Score: 21 023 10:14 AM EDT documented as of this encounter Care Teams Computer Security Specialist Relationship Specialty Start Date End Date Name, MD Rock [address] [place] [address] PCP - General Family Medicine 07/04/15 documented as of this encounter
--- OUTSIDE RECORDS SUMMARY | 2024-07-03 15:37 | XMS_ITS | Encounter Summary ---
Author Organization [employer] Address 75 [facility] 7 [place] [address] Care Team Providers Care Electrical Engineering Technician Name Role Phone Name, Rock DE PAZ Primary Care Provider [phone] Reason for Visit * Reason Onset Date Comments Med Refill 03/03/2024 Encounter Details Date Type Department Care Team (Late st Contact Info) Description 03/03/2024 Refill [facility] [address] [place], [place] [phone] Name, MD Rock [address] [place] [address] Chronic pain syndrome Social History Tobacco Use [...] 07/17/2024 1:00 PM EDT Clinical Support [facility] [address] [place] [address] Corrie Chen RN 09/06/2024 3:30 PM EDT Office Visit [facility] [address] [place] [address] Name, MD Rock [address] [place] [address] documented as of this encounter Visit Diagnoses Diagnosis Chronic pain syndrome documented in this encounter Additional Health Concerns Assessment Noted Time PHQ-9 Depression Total Score: 12 024 2:16 PM EDT documented as of this encounter Care Teams Electrical Engineering Technician Relationship Specialty Start Date End Date Name, MD Rock [address] [place] [address] PCP - General Family Medicine 07/04/15 documented as of this encounter
--- OUTSIDE RECORDS SUMMARY | 2024-07-03 15:37 | XMS_ITS | Encounter Summary ---
Author Organization [employer] Address 75 [facility] 7 [place] [address] Care Team Providers Care Alarm Mechanic Name Role Phone Name, Rock DE PAZ Primary Care Provider [phone] Reason for Visit * Reason Onset Date Comments Med Refill 02/09/2024 Encounter Details Date Type Department Care Team (Late st Contact Info) Description 02/09/2024 Refill [facility] 230 [place], [place] [phone] Name, MD Rock 230 [place] [address] Social History Tobacco Use Types Packs/Day Years [...] Description 07/17/2024 1:00 PM EDT Clinical Support [facility] [address] [place] [address] Corrie Chen RN 09/06/2024 3:30 PM EDT Office Visit [facility] [address] [place] [address] NameRock MD [address] [place] [address] documented as of this encounter Visit Diagnoses Not on filedocumented in this encounter Additional Health Concerns Assessment Noted Time PHQ-9 Depression Total Score: 12 024 2:16 PM EDT documented as of this encounter Care Teams Alarm Mechanic Relationship Specialty Start Date End Date Name, MD Rock [address] [place] [address] PCP - General Family Medicine 07/04/15 documented as of this encounter
--- OUTSIDE RECORDS SUMMARY | 2024-07-03 15:37 | XMS_ITS | Encounter Summary ---
Author Organization [email or web address] Address 75 [facility] 7 [place] [address] Care Team Providers Care Medical Detailist Name Role Phone Name, Rock DE PAZ Primary Care Provider [phone] Reason for Visit * Reason Onset Date Comments Med Refill 06/14/2024 Encounter Details Date Type Department Care Team (Late st Contact Info) Description 06/14/2024 Refill [facility] 230 [place], [place] [phone] Name, MD Rock 230 [place], [place] [phone] Chronic pain syndrome Social History Tobacco Use [...] EDT Clinical Support [facility] [address] [place] [address]67 Corrie Chen RN 09/06/2024 3:30 PM EDT Office Visit [facility] [address] [place] [address] Name, MD Rock [address] [place] [address] documented as of this encounter Visit Diagnoses Diagnosis Chronic pain syndrome documented in this encounter Additional Health Concerns Assessment Noted Time PHQ-9 Depression Total Score: 17 025 2:50 PM EST documented as of this encounter Care Teams Medical Detailist Relationship Specialty Start Date End Date Name, MD Rock [address] [place] [address]15 PCP - General Family Medicine 07/04/15 documented as of this encounter
--- OUTSIDE RECORDS SUMMARY | 2024-07-03 15:37 | XMS_ITS | Encounter Summary ---
Author Organization [employer] Address 75 [facility] 7t [place] [address] Care Team Providers Care Health Unit Clerk Name Role Phone Name, Rock DE PAZ Primary Care Provider [phone] Encounter Details Date Type Department Care Team (Late st Contact Info) Description 11/24/2023 Abstract [facility] 230 [place], [place] [phone] Name, MD Rock 230 [place] [address] Social History Tobacco Use Types Packs/Day Years [...] Description 07/17/2024 1:00 PM EDT Clinical Support [address] [address] Corrie Chen RN 09/06/2024 3:30 PM EDT Office Visit [facility] [address] [place] [address] Name, MD Rock [address] [place] [address] documented as of this encounter Procedures Procedure [...] documented as of this encounter Care Teams Health Unit Clerk Relationship Specialty Start Date End Date Name, MD Rock [address] [place] [address] PCP - General Family Medicine 07/04/15 documented as of this encounter
--- OUTSIDE RECORDS SUMMARY | 2024-07-03 15:37 | XMS_ITS | Encounter Summary ---
Author Organization [employer] Address 75 [facility] 7 [place] [address] Care Team Providers Care Mobile Heavy Equipment Mechanic Name Role Phone Name, Rock DE PAZ Primary Care Provider [phone] Reason for Visit * Reason Onset Date Comments Med Refill 02/09/2024 Encounter Details Date Type Department Care Team (Late st Contact Info) Description 02/09/2024 Refill [facility] 230 [place], [place] [phone] Name, MD Rock 230 [place], [place] [phone] Chronic pain syndrome Social History Tobacco Use [...] PM EDT Clinical Support [facility] [address] [place] [address] Corrie Chen RN 09/06/2024 3:30 PM EDT Office Visit [facility] [address] [place] [address]47 Name, MD Rock [address] [place] [address] 200[address] documented as of this encounter Visit Diagnoses Diagnosis Chronic pain syndrome documented in this encounter Additional Health Concerns Assessment Noted Time PHQ-9 Depression Total Score: 12 024 2:16 PM EDT documented as of this encounter Care Teams Mobile Heavy Equipment Mechanic Relationship Specialty Start Date End Date Name, MD Rock [address] [place] [address] PCP - General Family Medicine 07/04/15 documented as of this encounter
--- OUTSIDE RECORDS SUMMARY | 2024-07-03 15:37 | XMS_ITS | Encounter Summary ---
Author Organization [employer] Address 75 [facility] 7 [place] [address] Care Team Providers Care Fbi Field Agent Name Role Phone Name, Rock DE PAZ Primary Care Provider [phone] Reason for Visit * Reason Onset Date Comments Med Refill 07/01/2024 Encounter Details Date Type Department Care Team (Late st Contact Info) Description 07/01/2024 Refill [facility] 230 [place], [place] [phone] Name, MD Rock 230 [place], [place] [phone] Insomnia, unspecified type Social History Tobacco Use [...] 07/17/2024 1:00 PM EDT Clinical Support [facility] [address] [place] [address] Corrie Chen RN 09/06/2024 3:30 PM EDT Office Visit [facility] [address] [place] [address] Name, MD Rock [address] [place] [address] 386[address] documented as of this encounter Visit Diagnoses Diagnosis Insomnia, unspecified type documented in this encounter Additional Health Concerns Assessment Noted Time PHQ-9 Depression Total Score: 17 025 2:50 PM EST documented as of this encounter Care Teams Fbi Field Agent Relationship Specialty Start Date End Date Name, MD Rock [address] [place] [address] 21639 PCP - General Family Medicine 07/04/15 documented as of this encounter
--- OUTSIDE RECORDS SUMMARY | 2024-07-03 15:37 | XMS_ITS | Encounter Summary ---
Author Organization [employer] Address 75 [facility] 7 [place] [address] Care Team Providers Care Brief Writer Name Role Phone Name, Rock DE PAZ Primary Care Provider [phone] Reason for Visit * Reason Onset Date Comments Med Refill 05/09/2024 Encounter Details Date Type Department Care Team (Late st Contact Info) Description 05/09/2024 Refill [facility] 230 [place], [place] [phone] Name, MD Rock 230 [place], [place] [phone] Rhinorrhea Social History Tobacco Use Types Packs/Day [...] EDT Clinical Support [facility] [address] [place] [address] Corrie Chen RN 09/06/2024 3:30 PM EDT Office Visit [facility] [address] [place] [address] Name, MD Rock [address] [place] [address] documented as of this encounter Visit Diagnoses Diagnosis Rhinorrhea Other diseases of nasal cavity and sinuses documented in this encounter Additional Health Concerns Assessment Noted Time PHQ-9 Depression Total Score: 12 024 2:16 PM EDT documented as of this encounter Care Teams Brief Writer Relationship Specialty Start Date End Date Name, MD Rock [address] [place] [address] PCP - General Family Medicine 07/04/15 documented as of this encounter
--- OUTSIDE RECORDS SUMMARY | 2024-07-03 15:37 | XMS_ITS | Encounter Summary ---
Author Organization [employer] Address 75 [facility] 7 [place] [address] Care Team Providers Care Entry Level Marketing Assistant Name Role Phone Name, Rock DE PAZ Primary Care Provider [phone] Reason for Visit * Reason Onset Date Comments Med Refill 03/10/2024 Encounter Details Date Type Department Care Team ([facility] st Contact Info) Description 03/10/2024 Refill [facility] 230 [place], [place] [phone] Name, MD Rock 230 [place], [place] [phone] Hypophosphatemia Social History Tobacco Use Types Packs/Day [...] Description 07/17/2024 1:00 PM EDT Clinical Support [facility] [address] [place] [address]478 Corrie Chen RN 09/06/2024 3:30 PM EDT Office Visit [address] [address] NameRock MD [address] [place] [address] documented as of this encounter Visit Diagnoses Diagnosis Hypophosphatemia Disorders of phosphorus metabolism documented in this encounter Additional Health Concerns Assessment Noted Time PHQ-9 Depression Total Score: 12 024 2:16 PM EDT documented as of this encounter Care Teams Entry Level Marketing Assistant Relationship Specialty Start Date End Date NameRock MD [address] [place] [address] PCP - General Family Medicine 07/04/15 documented as of this encounter
--- OUTSIDE RECORDS SUMMARY | 2024-07-03 15:37 | XMS_ITS | Encounter Summary ---
Author Organization [employer] Address 75 [facility] 7 [place] [address] Care Team Providers Care Supervisor Twisting Department Name Role Phone Name, Rock DE PAZ Primary Care Provider [phone] Reason for Visit * Reason Comments Med Refill Encounter Details Date Type Department Care Team (Late st Contact Info) Description 11/26/2022 Refill [facility] 230 [place], [place] [phone] Name, MD Rock 230 [place] [address] Chronic pain syndrome Social History Tobacco Use [...] 07/17/2024 1:00 PM EDT Clinical Support [address] [address] Corrie Chen, RN 09/06/2024 3:30 PM EDT Office Visit [address] [address] Name, MD Rock [address] [place] [address] documented as of this encounter Visit Diagnoses Diagnosis Chronic pain syndrome documented in this encounter Additional Health Concerns Assessment Noted Time PHQ-9 Depression Total Score: 21 11/20/ 023 10:14 AM EDT documented as of this encounter Care Teams Supervisor Twisting Department Relationship Specialty Start Date End Date Name, MD Rock [address] [place] [address] PCP - General Family Medicine 07/04/15 documented as of this encounter
--- OUTSIDE RECORDS SUMMARY | 2024-07-03 15:37 | XMS_ITS | Encounter Summary ---
Author Organization [employer] Address 75 [facility] 7 [place] [address] Care Team Providers Care Soap Grinder Name Role Phone Name, Rock DE PAZ Primary Care Provider [phone] Reason for Visit * Reason Onset Date Comments Med Refill 06/14/2024 Encounter Details Date Type Department Care Team (Late st Contact Info) Description 06/14/2024 Refill [facility] 230 [place], [place] [phone] Name, MD Rock 230 [place], [place] [phone] Chronic pain syndrome Social History Tobacco Use [...] Description 07/17/2024 1:00 PM EDT Clinical Support [facility] [address] [place] [address] Corrie Chen RN 09/06/2024 3:30 PM EDT Office Visit [facility] [address] [place] [address] Name, MD Rock [address] [place] [address] 95[address] documented as of this encounter Visit Diagnoses Diagnosis Chronic pain syndrome documented in this encounter Additional Health Concerns Assessment Noted Time PHQ-9 Depression Total Score: 17 025 2:50 PM EST documented as of this encounter Care Teams Soap Grinder Relationship Specialty Start Date End Date Name, MD Rock [address] [place] [address]647 PCP - General Family Medicine 07/04/15 documented as of this encounter
--- OUTSIDE RECORDS SUMMARY | 2024-07-03 15:37 | XMS_ITS | Encounter Summary ---
Author Organization [employer] Address 75 [facility] 7 [place] [address] Care Team Providers Care Heavy Equipment Rental Associate Name Role Phone Name, Rock DE PAZ Primary Care Provider [phone] Reason for Visit * Reason Onset Date Comments Med Refill 03/02/2024 Encounter Details Date Type Department Care Team (Late st Contact Info) Description 03/02/2024 Refill [facility] 230 [place], [place] [phone] Name, MD Rock 230 [place] [address] Chronic pain syndrome Social History Tobacco Use [...] Support [facility] [address] [place] [address] 7[address] Corrie Chen RN 09/06/2024 3:30 PM EDT Office Visit [facility] [address] [place] [address] Name, MD Rock [address] [place] [address] documented as of this encounter Visit Diagnoses Diagnosis Chronic pain syndrome documented in this encounter Additional Health Concerns Assessment Noted Time PHQ-9 Depression Total Score: 12 024 2:16 PM EDT documented as of this encounter Care Teams Heavy Equipment Rental Associate Relationship Specialty Start Date End Date Name, MD Rock [address] [place] [address] PCP - General Family Medicine 07/04/15 documented as of this encounter
--- OUTSIDE RECORDS SUMMARY | 2024-07-03 15:37 | XMS_ITS | Encounter Summary ---
Author Organization [email or web address] Address 75 [facility] 7t [place] [address] Care Team Providers Care Wafer Slicer Name Role Phone Name, Rock DE PAZ Primary Care Provider [phone] Reason for Visit * Reason Comments Med Refill Encounter Details Date Type Department Care Team ([facility] st Contact Info) Description 11/29/2023 Refill [facility] [address] [place] [address] [phone] Name, MD Rock [address] [place] [address] [phone] Chronic pain syndrome Social History Tobacco Use [...] 07/17/2024 1:00 PM EDT Clinical Support [facility] [address] [place] [address] Corrie Chen, SCOUT 09/06/2024 3:30 PM EDT Office Visit [facility] [address] [place] [address] 0[address]09 NameRock MD [address] [place] [address] 17936 documented as of this encounter Visit Diagnoses Diagnosis Chronic pain syndrome documented in this encounter Additional Health Concerns Assessment Noted Time PHQ-9 Depression Total Score: 12 024 2:16 PM EDT documented as of this encounter Care Teams Wafer Slicer Relationship Specialty Start Date End Date Name, MD Rock [address] [place] [address]692 PCP - General Family Medicine 07/04/15 documented as of this encounter
--- OUTSIDE RECORDS SUMMARY | 2024-07-03 15:37 | XMS_ITS | Encounter Summary ---
Author Organization [employer] Address [address] [facility] 7t [place] [address] Care Team Providers Care Automotive Painter Name Role Phone Name, Rock DE PAZ Primary Care Provider [phone] Reason for Visit * Reason Onset Date Comments july recalls 06/30/2024 Encounter Details Date Type Department Care Team (Late st Contact Info) Description 06/30/2024 Telephone [facility] 230 [place] [address] Magdalnea Pena [place] july recalls Social History Tobacco Use Types [...] PM EDT Clinical Support [facility] [address] [place] [address] Corrie Chen, SCOUT 09/06/2024 3:30 PM EDT Office Visit [facility] [address] [place] [address] 8[address] Name, MD Rock 230 [place] [address] documented as of this encounter Visit Diagnoses Not on filedocumented in this encounter Additional Health Concerns Assessment Noted Time PHQ-9 Depression Total Score: 17 025 2:50 PM EST documented as of this encounter Care Teams Automotive Painter Relationship Specialty Start Date End Date Name, MD Rock 230 [place] [address] PCP - General Family Medicine 07/04/15 documented as of this encounter
--- OUTSIDE RECORDS SUMMARY | 2024-07-03 15:37 | XMS_ITS | Encounter Summary ---
Author Organization [employer] Address 75 [facility] 7 [place] [address] Care Team Providers Care Sanitation Manager Name Role Phone Name, Rock DE PAZ Primary Care Provider [phone] Reason for Visit * Reason Onset Date Comments Med Refill 01/31/2024 Encounter Details Date Type Department Care Team ([facility] st Contact Info) Description 01/31/2024 Refill [facility] [address] [place] [address] Juhi Diaz, ELECTRICAL PLUMBING SUPERVISOR 505 [place] [address] Chronic pain syndrome; Insomnia, unspecified type Social [...] Description 07/17/2024 1:00 PM EDT Clinical Support [facility] [address] [place] [address] Corrie Chen RN 09/06/2024 3:30 PM EDT Office Visit [facility] [address] [place] [address] 07671 NameRock MD [address] [place] [address] documented as of this encounter Visit Diagnoses Diagnosis Chronic pain syndrome Insomnia, unspecified type documented in this encounter Additional Health Concerns Assessment Noted Time PHQ-9 Depression Total Score: 12 024 2:16 PM EDT documented as of this encounter Care Teams Sanitation Manager Relationship Specialty Start Date End Date NameRock MD [address] [place] [phone] PCP - General Family Medicine 07/04/15 documented as of this encounter
--- OUTSIDE RECORDS SUMMARY | 2024-07-03 15:37 | XMS_ITS | Encounter Summary ---
Author Organization [employer] Address 75 [facility] 7 [place] [address] Care Team Providers Care Rn Orthopedic Name Role Phone Name, Rock DE PAZ Primary Care Provider [phone] Reason for Visit * Reason Onset Date Comments Med Refill 03/02/2024 Encounter Details Date Type Department Care Team (Late st Contact Info) Description 03/02/2024 Refill [facility] 230 [place], [place] [phone] Name, MD Rock 230 [place] [address] Social History Tobacco Use Types Packs/Day Years [...] EDT Clinical Support [facility] [address] [place] [address] Corrie Chen RN 09/06/2024 3:30 PM EDT Office Visit [facility] [address] [place] [address] NameRock MD [address] [place] [address] documented as of this encounter Visit Diagnoses Not on filedocumented in this encounter Additional Health Concerns Assessment Noted Time PHQ-9 Depression Total Score: 12 024 2:16 PM EDT documented as of this encounter Care Teams Rn Orthopedic Relationship Specialty Start Date End Date Name, MD Rock [address] [place] [address] PCP - General Family Medicine 07/04/15 documented as of this encounter
--- OUTSIDE RECORDS SUMMARY | 2024-07-03 15:37 | XMS_ITS | Encounter Summary ---
Author Organization [employer] Address 75 [facility] 7 [place] [address] Care Team Providers Care Welt Maker Name Role Phone Name, Rock DE PAZ Primary Care Provider [phone] Reason for Visit * Reason Onset Date Comments Med Refill 02/09/2024 Encounter Details Date Type Department Care Team (Late st Contact Info) Description 02/09/2024 Refill [facility] 230 [place], [place] [phone] Name, MD Rock 230 [place], [place] [phone] Chronic pain syndrome; Insomnia, unspecified type Social [...] Support [facility] [address] [place] [address] Corrie Chen RN 09/06/2024 3:30 PM EDT Office Visit [address] [address] NameRock MD [address] [place] [address] documented as of this encounter Visit Diagnoses Diagnosis Chronic pain syndrome Insomnia, unspecified type documented in this encounter Additional Health Concerns Assessment Noted Time PHQ-9 Depression Total Score: 12 024 2:16 PM EDT documented as of this encounter Care Teams Welt Maker Relationship Specialty Start Date End Date NameRock MD [address] [place] [address] PCP - General Family Medicine 07/04/15 documented as of this encounter
--- OUTSIDE RECORDS SUMMARY | 2024-07-03 15:37 | XMS_ITS | Encounter Summary ---
Author Organization [employer] Address 75 [facility] 7 [place] [address] Care Team Providers Care Nailhead Puncher Name Role Phone Name, Rock DE PAZ Primary Care Provider [phone] Reason for Visit * Reason Onset Date Comments Med Refill 02/09/2024 Encounter Details Date Type Department Care Team (Late st Contact Info) Description 02/09/2024 Refill [facility] 230 [place], [place] [phone] Name, MD Rock 230 [place], [place] [phone] Insomnia, unspecified type Social History Tobacco Use [...] Clinical Support [facility] [address] [place] [address] Corrie Chen RN 09/06/2024 3:30 PM EDT Office Visit [facility] [address] [place] [address] NameRock MD [address] [place] [address] documented as of this encounter Visit Diagnoses Diagnosis Insomnia, unspecified type documented in this encounter Additional Health Concerns Assessment Noted Time PHQ-9 Depression Total Score: 12 024 2:16 PM EDT documented as of this encounter Care Teams Nailhead Puncher Relationship Specialty Start Date End Date Name, MD Rock [address] [place] [address] PCP - General Family Medicine 07/04/15 documented as of this encounter
--- OUTSIDE RECORDS SUMMARY | 2024-07-03 15:37 | XMS_ITS | Encounter Summary ---
Author Organization [employer] Address 75 [facility] 7t [place] [address] Care Team Providers Care Electrical Estimator Name Role Phone Name, Rock DE PAZ Primary Care Provider Reason for Visit * Reason Onset Date Comments July Recalls 06/16/2024 Encounter Details Date Type Department Care Team ([facility] st Contact Info) Description 06/16/2024 Telephone [facility] 230 [place] [address] Magdalena Pena [place] July Recalls Social History Tobacco Use Types [...] PM EDT Clinical Support [facility] [address] [place] [address] Corrie Chen RN 09/06/2024 3:30 PM EDT Office Visit [facility] [address] [place] [address]697 Name, MD Rock 230 [place] [address] documented as of this encounter Visit Diagnoses Not on filedocumented in this encounter Additional Health Concerns Assessment Noted Time PHQ-9 Depression Total Score: 17 025 2:50 PM EST documented as of this encounter Care Teams Electrical Estimator Relationship Specialty Start Date End Date Name, MD Rock 230 [place] [address] PCP - General Family Medicine 07/04/15 documented as of this encounter
--- OUTSIDE RECORDS SUMMARY | 2024-07-03 15:37 | XMS_ITS | Encounter Summary ---
Author Organization [employer] Address 75 [facility] 7 [place] [address] Care Team Providers Care Undercover Cop Name Role Phone Name, Rock DE PAZ Primary Care Provider [phone] Reason for Visit * Reason Comments Med Refill Encounter Details Date Type Department Care Team (Late st Contact Info) Description 11/20/2022 Refill [facility] [address] [place] [address] Fany Pearson MD 230 [place] [address] Chronic pain syndrome; Insomnia, unspecified type Social [...] Description 07/17/2024 1:00 PM EDT Clinical Support [address] [address] Corrie Chen, RN 09/06/2024 3:30 PM EDT Office Visit [address] [address] Name, MD Rock [address] [place] [address] documented as of this encounter Visit Diagnoses Diagnosis Chronic pain syndrome Insomnia, unspecified type documented in this encounter Additional Health Concerns Assessment Noted Time PHQ-9 Depression Total Score: 21 11/20/ 023 10:14 AM EDT documented as of this encounter Care Teams Undercover Cop Relationship Specialty Start Date End Date Rock Rodrigues MD [address] [place] [address] PCP - General Family Medicine 07/04/15 documented as of this encounter
--- OUTSIDE RECORDS SUMMARY | 2024-07-03 15:37 | XMS_ITS | Encounter Summary ---
Author Organization [employer] Address 75 [facility] 7 [place] [address] Care Team Providers Care Geodetic Computator Name Role Phone Name, Rock DE PAZ Primary Care Provider [phone] Reason for Visit * Reason Onset Date Comments Med Refill 06/16/2024 Encounter Details Date Type Department Care Team (Late st Contact Info) Description 06/16/2024 Refill [facility] 230 [place], [place] [phone] Name, MD Rock 230 [place], [place] [phone] Chronic pain syndrome Social History Tobacco Use [...] 1:00 PM EDT Clinical Support [facility] [address] [place] [address] Corrie Chen RN 09/06/2024 3:30 PM EDT Office Visit [facility] [address] [place] [address] Name, MD Rock [address] [place] [address] documented as of this encounter Visit Diagnoses Diagnosis Chronic pain syndrome documented in this encounter Additional Health Concerns Assessment Noted Time PHQ-9 Depression Total Score: 17 025 2:50 PM EST documented as of this encounter Care Teams Geodetic Computator Relationship Specialty Start Date End Date Name, MD Rock [address] [place] [address] PCP - General Family Medicine 07/04/15 documented as of this encounter
--- OUTSIDE RECORDS SUMMARY | 2024-07-03 15:37 | XMS_ITS | Encounter Summary ---
Author Organization [employer] Address 75 [facility] 7 [place] [address] Care Team Providers Care Animal Control Specialist Name Role Phone Name, Rock DE PAZ Primary Care Provider [phone] Reason for Visit * Reason Comments Med Refill Encounter Details Date Type Department Care Team (Late st Contact Info) Description 06/04/2024 Refill [facility] 230 [place], [place] [phone] Agnieszka Arvizu MD 230 [place] [address] Insomnia, unspecified type Social History Tobacco Use [...] EDT Clinical Support [facility] [address] [place] [address] Corrie Chen, SCOUT 09/06/2024 3:30 PM EDT Office Visit [facility] [address] [place] [address] Name, MD Rock [address] [place] [address] documented as of this encounter Visit Diagnoses Diagnosis Insomnia, unspecified type documented in this encounter Additional Health Concerns Assessment Noted Time PHQ-9 Depression Total Score: 17 025 2:50 PM EST documented as of this encounter Care Teams Animal Control Specialist Relationship Specialty Start Date End Date Name, MD Rock [address] [place] [address] PCP - General Family Medicine 07/04/15 documented as of this encounter
--- OUTSIDE RECORDS SUMMARY | 2024-07-03 15:37 | XMS_ITS | Encounter Summary ---
Author Organization [employer] Address 75 [facility] 7 [place] [address] Care Team Providers Care Record Changer Tester Name Role Phone Name, Rock DE PAZ Primary Care Provider [phone] Reason for Visit * Reason Comments Med Refill Encounter Details Date Type Department Care Team ([facility] st Contact Info) Description 06/16/2024 Refill [facility] 230 [place], [place] [phone] Name, MD Rock 230 [place], [place] [phone] Chronic pain syndrome Social History Tobacco Use [...] Clinical Support [facility] [address] [place] [address] Corrie Chen RN 09/06/2024 3:30 PM EDT Office Visit [facility] [address] [place] [address] NameRock MD [address] [place] [address] documented as of this encounter Visit Diagnoses Diagnosis Chronic pain syndrome documented in this encounter Additional Health Concerns Assessment Noted Time PHQ-9 Depression Total Score: 17 025 2:50 PM EST documented as of this encounter Care Teams Record Changer Tester Relationship Specialty Start Date End Date NameRock MD [address] [place] [address] PCP - General Family Medicine 07/04/15 documented as of this encounter
--- OUTSIDE RECORDS SUMMARY | 2024-07-03 15:37 | XMS_ITS | Encounter Summary ---
Author Organization [employer] Address 75 [facility] 7 [place] [address] Care Team Providers Care Well Service Floorperson Name Role Phone Name, Rock DE PAZ Primary Care Provider [phone] Reason for Visit * Reason Onset Date Comments Med Refill 06/25/2024 Encounter Details Date Type Department Care Team (Late st Contact Info) Description 06/25/2024 Refill [facility] MED[facility]INE 230 [place], [place] [phone] Name, MD Rock 230 [place], [place] [phone] Chronic pain syndrome Social History Tobacco Use [...] 07/17/2024 1:00 PM EDT Clinical Support [facility]INE [address] [place] [address] Corrie Chen RN 09/06/2024 3:30 PM EDT Office Visit [facility] [address] [place] [address] Name, MD Rock [address] [place] [address] documented as of this encounter Visit Diagnoses Diagnosis Chronic pain syndrome documented in this encounter Additional Health Concerns Assessment Noted Time PHQ-9 Depression Total Score: 17 025 2:50 PM EST documented as of this encounter Care Teams Well Service Floorperson Relationship Specialty Start Date End Date Name, MD Rock [address] [place] [address] PCP - General Family Medicine 07/04/15 documented as of this encounter
--- OUTSIDE RECORDS SUMMARY | 2024-07-03 15:37 | XMS_ITS | Encounter Summary ---
Author Organization [employer] Address 75 [facility] 7 [place] [address] Care Team Providers Care Business Analyst Sales Operations Name Role Phone Name, Rock DE PAZ Primary Care Provider [phone] Reason for Visit * Reason Onset Date Comments Med Refill 05/08/2024 Encounter Details Date Type Department Care Team (Late st Contact Info) Description 05/08/2024 Refill [facility] 230 [place], [place] [phone] Name, MD Rock 230 [place], [place] [phone] Chronic pain syndrome; Insomnia, unspecified type Social [...] Clinical Support [facility] [address] [place] [phone] Corrie Chen RN 09/06/2024 3:30 PM EDT Office Visit [address] [address] NameRock MD [address] [place] [address] documented as of this encounter Visit Diagnoses Diagnosis Chronic pain syndrome Insomnia, unspecified type documented in this encounter Additional Health Concerns Assessment Noted Time PHQ-9 Depression Total Score: 12 024 2:16 PM EDT documented as of this encounter Care Teams Business Analyst Sales Operations Relationship Specialty Start Date End Date NameRock MD [address] [place] [address] PCP - General Family Medicine 07/04/15 documented as of this encounter
--- OUTSIDE RECORDS SUMMARY | 2024-07-03 15:37 | XMS_ITS | Encounter Summary ---
Author Organization [employer] Address 75 [facility] 7 [place] [address] Care Team Providers Care Insulation Inspector Name Role Phone Name, Rock DE PAZ Primary Care Provider [phone] Reason for Visit * Reason Onset Date Comments Med Refill 06/28/2024 Encounter Details Date Type Department Care Team (Late st Contact Info) Description 06/28/2024 Refill [facility] 230 [place], [place] [phone] Name, MD Rock 230 [place], [place] [phone] Hypophosphatemia Social History Tobacco Use Types Packs/Day [...] Description 07/17/2024 1:00 PM EDT Clinical Support [facility] [address] [place] [address] Corrie Chen RN 09/06/2024 3:30 PM EDT Office Visit [facility] [address] [place] [address] NameRock MD [address] [place] [address] documented as of this encounter Visit Diagnoses Diagnosis Hypophosphatemia Disorders of phosphorus metabolism documented in this encounter Additional Health Concerns Assessment Noted Time PHQ-9 Depression Total Score: 17 025 2:50 PM EST documented as of this encounter Care Teams Insulation Inspector Relationship Specialty Start Date End Date NameRock MD [address] [place] [address] PCP - General Family Medicine 07/04/15 documented as of this encounter
--- OUTSIDE RECORDS SUMMARY | 2024-07-03 15:37 | XMS_ITS | Encounter Summary ---
Author Organization [employer] Address 75 [facility] 7 [place] [address] Care Team Providers Care Qa Engineer Name Role Phone Name, Rock DE PAZ Primary Care Provider [phone] Reason for Visit * Reason Comments Med Refill Encounter Details Date Type Department Care Team (Late st Contact Info) Description 11/23/2022 Refill [facility] 230 [place] [address] Fany Pearson MD 230 [place] [address] Chronic pain syndrome; Insomnia, unspecified type Social [...] Description 07/17/2024 1:00 PM EDT Clinical Support [address] [address] Corrie Chen, RN 09/06/2024 3:30 PM EDT Office Visit [address] [address] Name, MD Rock [address] [place] [address] documented as of this encounter Visit Diagnoses Diagnosis Chronic pain syndrome Insomnia, unspecified type documented in this encounter Additional Health Concerns Assessment Noted Time PHQ-9 Depression Total Score: 21 11/20/ 023 10:14 AM EDT documented as of this encounter Care Teams Qa Engineer Relationship Specialty Start Date End Date Rock Rodrigues MD [address] [place] [address] PCP - General Family Medicine 07/04/15 documented as of this encounter
--- OUTSIDE RECORDS SUMMARY | 2024-07-03 15:37 | XMS_ITS | Encounter Summary ---
Author Organization [employer] Address 75 [facility] 7 [place] [address] Care Team Providers Care Staff Scientist Name Role Phone Name, Rock DE PAZ Primary Care Provider [phone] Reason for Visit * Reason Onset Date Comments Med Refill 06/03/2024 Encounter Details Date Type Department Care Team (Late st Contact Info) Description 06/03/2024 Refill [facility]INE 230 [place], [place] [phone] Name, MD Rock 230 [place], [place] [phone] Hypophosphatemia Social History Tobacco Use Types Packs/Day [...] EDT Clinical Support [facility] [address] [place] [address] Corrie Chen RN 09/06/2024 3:30 PM EDT Office Visit [facility] [address] [place] [address] NameRock MD [address] [place] [address] documented as of this encounter Visit Diagnoses Diagnosis Hypophosphatemia Disorders of phosphorus metabolism documented in this encounter Additional Health Concerns Assessment Noted Time PHQ-9 Depression Total Score: 17 025 2:50 PM EST documented as of this encounter Care Teams Staff Scientist Relationship Specialty Start Date End Date NameRock MD [address] [place] [address] PCP - General Family Medicine 07/04/15 documented as of this encounter
--- OUTSIDE RECORDS SUMMARY | 2024-07-03 15:37 | XMS_ITS | Encounter Summary ---
Author Organization [employer] Address 75 [facility] 7 [place] [address] Care Team Providers Care Machine Lead Burner Name Role Phone Name, Rock DE PAZ Primary Care Provider [phone] Reason for Visit * Reason Onset Date Comments Med Refill 05/08/2024 Encounter Details Date Type Department Care Team ([facility] st Contact Info) Description 05/08/2024 Refill [facility] & [facility]ED[facility] [address] [place] [address] Name, MD Rock 230 [place] [address] Rhinorrhea Social History Tobacco Use Types Packs/Day [...] Description 07/17/2024 1:00 PM EDT Clinical Support [facility] [address] [place] [address] Corrie Chen RN 09/06/2024 3:30 PM EDT Office Visit [address] [address] NameRock MD [address] [place] [address] documented as of this encounter Visit Diagnoses Diagnosis Rhinorrhea Other diseases of nasal cavity and sinuses documented in this encounter Additional Health Concerns Assessment Noted Time PHQ-9 Depression Total Score: 12 024 2:16 PM EDT documented as of this encounter Care Teams Machine Lead Burner Relationship Specialty Start Date End Date NameRock MD [address] [place] [address] PCP - General Family Medicine 07/04/15 documented as of this encounter
--- OUTSIDE RECORDS SUMMARY | 2024-07-03 15:37 | XMS_ITS | Encounter Summary ---
Author Organization [employer] Address 75 [facility] 7 [place] [address] Care Team Providers Care Zinc Etcher Name Role Phone Name, Rock DE PAZ Primary Care Provider [phone] Reason for Visit * Reason Comments Med Refill Encounter Details Date Type Department Care Team (Late st Contact Info) Description 11/18/2022 Refill [facility] MEDICINE 230 [place], [place] [phone] Name, MD Rock 230 [place] [address] Chronic pain syndrome Social History Tobacco Use [...] Description 07/17/2024 1:00 PM EDT Clinical Support [address] [address] Corrie Chen, RN 09/06/2024 3:30 PM EDT Office Visit [address] [address] Name, MD Rock [address] [place] [address] documented as of this encounter Visit Diagnoses Diagnosis Chronic pain syndrome documented in this encounter Care Teams Zinc Etcher Relationship Specialty Start Date End Date Rock Rodrigues MD [address] [place] [address] PCP - General Family Medicine 07/04/15 documented as of this encounter
--- OUTSIDE RECORDS SUMMARY | 2024-07-03 15:37 | XMS_ITS | Clinical Summary ---
Author Organization [employer] Address [address] [facility] 7t [place] [address] Care Team Providers Care Codifier Name Role Phone Name, Rock DE PAZ Primary Care Provider [phone] Allergies Active Allergy Reactions Criticality Noted Date [...] Encounters Date Type Department Care Team Description 07/03/2024 Orders Only GENERIC EXTERNAL DATA DEPARTMENT Provider, Generic External Data 07/01/2024 Refill [facility] [address] [place] [address] Name, MD Rock Insomnia, unspecified type 06/30/2024 Telephone [facility] [address] [place] [address] Magdalena Pena MA july recalls 06/28/2024 Refill [facility] [address] [place] [address] Rock Rodrigues MD Hypophosphatemia 06/25/2024 Refill [facility] MEDIC[facility] [address] [place] [address] Rock Rodrigues MD Chronic pain syndrome 06/16/2024 Telephone [facility] [address] [place] [address] Magdalena Pena GOMEZ Hawa Recalls 06/16/2024 Refill [facility]IC[facility] [address] [place] [address] Rock Rodrigues MD Chronic pain syndrome 06/16/2024 Refill [facility] [address] [place] [address] Rock Rodrigues MD Chronic pain syndrome 06/14/2024 Refill [facility] [address] [place] [address] Rock Rodrigues MD Chronic pain syndrome 06/14/2024 Refill C MEDICINE [address] [place] [address] Rock Rodrigues MD Chronic pain syndrome 06/04/2024 Refill [facility] [address] [place] [address] Cheyenne Finnegan DO Insomnia, unspecified type; Hypophosphatemia 06/04/2024 Refill [facility] [address] [place] [address] Agnieszka Arvizu MD Insomnia, unspecified type 06/03/2024 Refill [facility] [address] [place] [address] Rock Rodrigues MD Hypophosphatemia 05/23/2024 Refill [facility] [address] [place] [address] Rock Rodrigues MD Chronic pain syndrome (Primary Dx) 05/22/2024 Orders Only GENERIC EXTERNAL DATA DEPARTMENT Provider, Generic External Data 05/20/2024 Refill [facility] [address] [place] [address] Rock Rodrigues MD Chronic pain syndrome 05/17/2024 2:00 PM EST Office Visit [facility] [address] [place] [address] NameRock MD Cough, unspecified type (Primary Dx); Wheezing; History of asthma; Hypertension, unspecified type 05/17/2024 Travel 05/09/2024 Refill [facility] [address] [place] [address] Rock Rodrigues MD Rhinorrhea 05/08/2024 Refill [facility] [address] [place] [address] NameRock MD Rhinorrhea 05/08/2024 Refill [facility] [address] [place] [address] Rock Rodrigues MD Chronic pain syndrome; Insomnia, unspecified type 05/08/2024 Refill [facility] [address] [place] [address] Rock Rodrigues MD Insomnia, unspecified type; Rhinorrhea 05/08/2024 Refill [facility] [address] [place] [address] Rock Rodrigues MD Hypophosphatemia; Insomnia, unspecified type 05/04/2024 Telephone [facility] [address] [place] [address] Rock Rodrigues MD Prior Authorization (carisoprodol (Soma) ) 04/27/2024 Refill [facility] [address] [place] [address] Rock Rodrigues MD Chronic pain syndrome 04/22/2024 Refill [facility] [address] [place] [address] Rock Rodrigues MD Chronic pain syndrome 04/21/2024 Telephone [facility] [address] [place] [address] Dorota Henry MA PCP OUT 04/18/2024 11:30 AM EST Clinical Support [facility] [address] [place] [address] Corrie Chen RN Chronic pain syndrome (Primary Dx) 04/18/2024 Telephone [facility] [address] [place] [address] Corrie Chen RN Abnormal UTOX 04/18/2024 Travel 04/18/2024 Telephone [facility] [address] [place] [address] Corrie Chen, SCOUT Recommend ELECTRIC WHEELCHAIR REPAIRER Tier 2 04/16/2024 Refill [facility] [address] [place] [address] NameRock MD Chronic pain syndrome (Primary Dx) 04/10/2024 Telephone [facility] [address] [place] [place] [phone] NameRock MD Appointment Request 04/07/2024 Refill [facility] [address] [place] [place] [phone] NameRock MD Insomnia, unspecified type from Last 3 Months Immunizations Name Administration Dates Next Due INFLUENZA VACCINE QUADRIVALE NT RECOMBINANT PRESERVATIVE FREE RIV4 01/20/2020,02/09/2019 Influenza injectable quadriv alent preservative free 02/15/2023,01/07/2022,02/17/2021,01/15,01/28/2017,01/22/2016 Influenza, IIV3, injectable 01/07/2015,1 ,02/16/2013,01/10,01/24/2009 Novel [id number]-[id number], preservative-free 04/03/2009 Pfizer Covid-19 Vaccine 12+ 03/29/2023 [...] Description 07/17/2024 1:00 PM EDT Clinical Support [facility] [address] [place] [address] Corrie Chen, SCOUT 09/06/2024 3:30 PM EDT Office Visit [facility] [address] [place] [address] Name, MD Rock Jerald Ló[place] [address] Health Maintenance Due Date Last Done Comments [...] T4, FREE Routine 07/03/2024 1:53 PM EDT US HEAD NECK SOFT TISSUE Routine 06/13/2024 [...] Recently Relevant to Health Maintenance Results * TSH (07/03/2024 1:53 PM EDT) Thyroid Stimulating Hormone 1.18 0.32 - 4.0 uIU/mL [facility] Comment:TSH 3rd Generation ( [facility]) 07/03/2024 1:53 PM EDT 07/03/2024 1:53 PM EDT us Generic External Data Provider LAB BLOOD ORDERAB LES Final Result [facility] [address] [place] [phone] * T4, Free (07/03/2024 1:53 PM EDT) Only the most recent of2 resultswithin the time period is included. Free T4 (Free Thyroxine) 1.21 0.71 - 1.85 ng/dL [facility] 07/03/2024 1:53 PM EDT 07/03/2024 1:53 PM EDT us Generic External Data Provider LAB BLOOD ORDERAB LES Final Result [facility] [address] [place] [address] [phone] * US Head Neck Soft Tissue (06/13/2024 5:29 PM EST) Anatomical Region Laterality Modality Head, Neck Ultrasound 06/13/2024 5:29 PM EST Narrative 06/13/2024 5:31 PM EST ? [facility] ?[address] ?[place] [address] ? Ultrasound Report ? Signed ? Patient: Jayson,Coleen ?MR#: [id number] ? : 1960 ?Acct:[id number] ? Age/Sex: 64 / F ?ADM Date: 06/12/24 ? Loc: HO.US ? Attending Dr: Adeola Russ MD ? Ordering Physician: Adeola Russ MD ?? Date of Service: 06/12/24 ?? Procedure(s): US soft tiss head and/or neck ?? Accession Number(s): [id number] ? cc: Adeola Russ MD; Name,Rock DE PAZ ? CLINICAL HISTORY: Z85.850 - Personal history of malignant neoplasm of thyroid ? Soft tissue neck ultrasound ? Comparison: None provided. There is reportedly a prior ultrasound from ?? 2020. An addendum can be provided if [...] 06/13/24 1730 ? DD/ 1729 ? TD/TT: 06/13/24 1729 ? [facility] Department Supervisor: ? Procedure Note Donotangieinterpreter, Image - 06/13/2024 [place] [address] Ultrasound Report Signed Patient: John Tyler#: [id number] : 1Acct:[id number] Age/Sex: 64 / FADM Date: 06/12/24 Loc: HO.US Attending Dr: Adeola Russ MD Ordering Physician: Adeola Russ MD Date of Service: 06/12/24 Procedure(s): US soft tiss head and/or neck Accession Number(s): [id number] cc: Adeola Russ MD; Name,Rock DE PAZ [...] been electronically signed by: Cleo Sutton MD on 06/13/2024 17:29:32 Dictated By: Cleo Ruiz MD Signed By: <Electronically signed by Cleo Ruiz MD in OV> 06/13/24 1730 DD/ 172 TD/TT: 06/13/24 172 [facility] Supervisor: [facility] External Provider IMG US PROCEDURES Edited Result - Final * POCT Rapid Covid-19 BinaxNOW (05/17/2024 3:33 PM EST) Pathologist [facility] Rapid COVID Ag Negative QC Media Lot # [id number] Lot# Expiration Date Swab 05/17/2024 3:33 PM EST Rock Rodrigues MD POINT OF CARE TEST ENTER/EDIT OR DERABLES Final Result * POCT Rapid Influenza B OSOM (05/17/2024 3:32 PM EST) [facility] Rapid Influenza B Ag Negative Negative, Indeterminate QC Media Lot # [id number] Lot# Expiration Date Swab 05/17/2024 3:32 PM EST Rock Rodrigues MD POINT OF CARE TEST ENTER/EDIT OR DERABLES Final Result * POCT Rapid Influenza A OSOM (05/17/2024 3:32 PM EST) [facility] Rapid Influenza A Ag Negative Negative, Indeterminate QC Media Lot # [id number] Lot# Expiration Date Swab Nasopharyngeal structure / Unknown 05/17/2024 3:32 PM EST us Rock Rodrigues MD POINT OF CARE TEST ENTER/EDIT OR DERABLES Final Result * (ABNORMAL) POCT PAULETTE-14 Urine Drug Screen (04/18/2024 11:51 AM EST) THC Positive Methadone Screen, Urine Positive TCA, Urine Positive Phencyclidine (PCP), Urine Positive Urine Urine specimen obtained by clean catch procedure / Unknown 04/18/2024 11:51 AM EST Narrative Corrie Chen RN - 04/18/2024 11:51 AM EST UTOX cup Lot#[id number] Exp. 01/18/26 Internal Pass Control us Rock Rodrigues MD POINT OF CARE TEST ENTER/EDIT OR DERABLES Final Result * Drug Monitoring, Phencyclidine, Quantitative, Urine (04/18/2024 11:30 AM EST) Phencyclidine NEGATIVE [facility] Comment:REFERENCE RANGE: <25 ng/mLThis drug testing is for medical treatment only.Analysis was performed as non-forensic testing andthese results should be used only by healthcareproviders to render diagnosis or treatment, or tomonitor progress of medical conditions.LDT Notes:Confirmation tests were developed and their analyticalperformance characteristics have been determined by[employer]. It has not been cleared or approvedby the FDA. This assay has been validated pursuant tothe CLIA regulations and is used for clinical purposes.Healthcare Providers needing Interpretation assistance,please contact us at [phone] ( )M- F, 8am to 10pm ESTTHIS TEST PERFORMED AT:[facility] [address] [phone] DIRECTOR: NANCY ADKINS MD Urine (Urine, Random) 04/18/2024 11:30 AM EST 04/18/2024 1:23 PM EST us Rock Rodrigues MD LAB URINE ORDERABLES Final Resul t [facility] [address] [place] [address] [phone] * Drug Monitoring, Methadone Metabolite, Screen, Urine (04/18/2024 11:30 AM EST) Methadone Screen, Urine Not Detected Not Detect ng/mL [facility] Comment:Methadone cut-off is 300 ng/mL.Positive results are unconfirmed and should not be used fornon-medical purposes. Urine (Urine, Random) 04/18/2024 11:30 AM EST 04/18/2024 1:23 PM EST us Rock Rodrigues MD LAB URINE ORDERABLES Final Resul t Performing Organization Address [facility] de Phone Number [facility] [address] [place] [address] [phone] * BI Mammogram Screening Tomosynthesis Bilateral (02/04/2024 1:40 PM EDT) Anatomical Region Laterality Modality Breast Bilateral Mammography 02/04/2024 1:40 PM EDT Narrative 02/17/2024 9:45 PM EDT ? [facility] ? [address] ?[place] [address] ? Mammography Report ? Signed ? Patient: Jayson,Coleen ?MR#: [id number] ? : 1960 ?Acct:[id number] ? Age/Sex: 64 / F ?ADM Date: 10/11/24 ? Loc: HO.MAMMO ? Attending : Rock Name MD ? Ordering Physician: Name,Rock MD ?Results: 1Negative ? Date of Service: 02/04/24 ?Follow Up: 1 Year From Orig ?? inal Mammogram ? Procedure(s): MM tomosynthesis screening BI ?? Accession Number(s): [id number] ? cc: Name,Rock DE PAZ ? EXAMINATION: [...] next mammogram. ? Electronically signed by: ??Kristal Jadeleonel DO ??02/17/2024 09:42 PM EDT ?? RP ? Dictated By: ?Kristal Santos DO ? Signed By: ?<Electronically signed by Kristal Santos, DO in OV> ? 02/17/242141 ? DD/ 1340 ? TD/TT: 02/04/24 8178 ? [facility] Department Supervisor: ? Procedure Note Shelley, Image - 02/17/2024 [facility] [address] [place] [address] Mammography Report Signed Patient: Ne TylernaMR#: [id number] : 1960cct:[id number] Age/Sex: 64 / FADM Date: 02/04/24 Loc: HO.MAMMO Attending Dr: Rock Rodrigues MD Ordering Physician: Rock Rodrigues MDResults: 1Negative Date of Service: 02/04/24Follow Up: 1 Year From Orig inal Mammogram Procedure(s): MM tomosynthesis screening BI Accession Number(s): [id number] cc: Name,Rock DE PAZ EXAMINATION: MM SCREENING DIGITAL BREAST TOMOSYNTHESIS, BILATERAL [...] 02/17/24 2142 DD/ 1340 TD/TT: 02/04/24 1358 [facility] Department Supervisor: Rock Rodrigues MD IM BI PROCEDURES Edited Result - Final * (ABNORMAL) Lipid Panel, Standard (12/07/2023 11:55 AM EDT) Triglycerides 236(H) <150 mg/dL [facility] Comment:Desirable Triglyceri de: less than 150 mg/dLBorderline High Triglyceride 150-199 mg/dLHigh Triglyceride: 200-499 mg/dLVery High Triglyceride: greater than or equal to 5OO mg/dL Cholesterol 300(H) <200 mg/dL [facility] Comment:Desirable Cholestero l: less than 200 mg/dLBorderline High Cholesterol: 200-239 mg/dLHigh Cholesterol: greater than 239 mg/dL LDL Cholesterol Calculated 214(H) <100 mg/dL [facility] Comment:Desirable LDL: less than 100 mg/dLNear Optimal/Above Optimal LDL: 110- 129 mg/dLBorderline High LDL: 130-159 mg/dLHigh LDL: 160-189 mg/dLVery High LDL: greater than or equal to 190 mg/dL HDL Cholesterol 39(L) >40 mg/dL [facility] Comment:Desirable HDL: great er than 40 mg/dL Note: This HDL assay may give artificially low results in patients with liver disease. 12/07/2023 11:5 5 AM EDT 12/07/2023 11:55 AM EDT us Generic External Data Provider LAB BLOOD ORDERAB LES Final Result [facility] [address] [place] [phone] * Hm Colonoscopy (11/22/2023) Colonoscopy Normal [...] has been evaluated with computer assisted technology. [facility] Development Expert: SEE COMMENT [facility] Comment: VICTOR MANUEL SPAULDING(ASCP) CT screening location: [address] ??[phone] HPV nRNA E6/E7 Not Detected Not Detected [facility] Comment: Methodology: Supervisor Paper Machine-Mediated Amplification This assay detects E6/E7 viral messenger RNA (mRNA) from 14 high-risk HPV types (16,18,31,33,35,39,45,51,52,56,58,59,66,68). ? Cervical sources are required for HPV testing. If a vaginal source from a patient who has had a total hysterectomy with removal of cervix was ?? submitted, please contact the testing laboratory for alternative testing options. ?? For additional information, please refer to http://education.Coghead/faq/RQD551u0 (This link if provided for information/ educational [...] SYSTEM Statement Of Adequacy: SATISFACTORY FOR EVALUATION [facility] 01/07/2022 3:18 PM EDT Tisha CHAMBERS LAB PATHOLOGY ORDERABLES Final Result [facility] [address] * HEPATITIS C AB W/REFL TO HCV RNA, QN, PCR (12/23/2021 2:35 PM EDT) HEPATITIS C ANTIBODY NON-REACT MARK NON-REACT MARK [facility] INDEX 0.12 <1.00 [facility] Comment: ?? HCV antibody was non-reactive. There is no laboratory ?? evidence of HCV infection. ?? In most cases, no further action is required. However, if recent HCV exposure is suspected, a test for HCV RNA (test code 64235) is suggested. ?? For additional information please refer to http://SinglePlatform.Coghead/faq/FQN44k7 (This link is being provided for informational/ educational purposes only.) ?? 12/23/2021 2:35 PM EDT us Rock Rodrigues MD HISTORICAL/NON ORDERABLE LABS Fi nal Result Performing Organization Address [facility] Phone Number [facility] [address] * HIV 1/2 ANTIGEN/ANTIBODY,FOURTH GENERATION W/RFL (02/17/2021 3:50 PM EDT) Pathologist [facility] HIV-1/2 ANTIGEN AND ANTIBODIES, 4TH GENERATION W/ REFLEX NON-REACT MARK NON-REACT MARK [facility] Comment: HIV-1 antigen and HIV-1/HIV-2 [...] ? For additional information please refer to http://SinglePlatform.Coghead/faq/NIY898 (This link is being provided for informational/ educational purposes only.) ? The performance of this assay has not been clinically validated in patients less than 2 years old. ?? 02/17/2021 3:50 PM EDT us Rock Rodrigues MD LAB BLOOD ORDERABLES Final Resul t Performing Organization Address [facility] Phone Number [facility] [address] from Last 3 Months or Most Recently Relevant to Health Maintenance Insurance MEDICARE [facility] STANDARD AET MEDICARE REPLACEMENT Care Teams Codifier Relationship Specialty Start Date End Date Name, MD Rock [address] [place] [address] PCP - General Family Medicine 07/04/15
--- OUTSIDE RECORDS SUMMARY | 2024-07-03 15:37 | XMS_ITS | Encounter Summary ---
Author Organization [employer] Address [address] [facility] 7 [place] [address] Care Team Providers Care Rn Medication Name Role Phone Name, Rock DE PAZ Primary Care Provider Reason for Visit * Reason Onset Date Comments Med Refill 03/10/2024 Encounter Details Date Type Department Care Team (Late st Contact Info) Description 03/10/2024 Refill [facility] [address] [place], [place] [phone] Name, MD Rock [address] [place], [place] [phone] Insomnia, unspecified type Social History Tobacco Use [...] EDT Clinical Support [facility] [address] [place] [address] Corrie Chen RN 09/06/2024 3:30 PM EDT Office Visit [facility] [address] [place] [address] NameRock MD [address] [place] [address] documented as of this encounter Visit Diagnoses Diagnosis Insomnia, unspecified type documented in this encounter Additional Health Concerns Assessment Noted Time PHQ-9 Depression Total Score: 12 024 2:16 PM EDT documented as of this encounter Care Teams Rn Medication Relationship Specialty Start Date End Date Name, MD Rock [address] [place] [address] PCP - General Family Medicine 07/04/15 documented as of this encounter
--- OUTSIDE RECORDS SUMMARY | 2024-07-03 15:38 | XMS_ITS | Encounter Summary ---
Author Organization [employer] Address [address] [facility] 7 [place] [address] Care Team Providers Care Radio Sportscaster Name Role Phone Name, Rock DE PAZ Primary Care Provider [phone] Reason for Visit * Reason Onset Date Comments Med Refill 06/04/2024 Encounter Details Date Type Department Care Team (Late st Contact Info) Description 06/04/2024 Refill [facility] [address] [place], [place] [phone] Cheyenne Finnegan DO [address] [place], [place] [phone] Insomnia, unspecified type; Hypophosphatemia Social History Tobacco [...] Clinical Support [facility] [address] [place] [phone] Corrie Chen RN 09/06/2024 3:30 PM EDT Office Visit [facility] [address] [place] [address] NameRock MD [address] [place] [address] documented as of this encounter Visit Diagnoses Diagnosis Insomnia, unspecified type Hypophosphatemia Disorders of phosphorus metabolism documented in this encounter Additional Health Concerns Assessment Noted Time PHQ-9 Depression Total Score: 17 025 2:50 PM EST documented as of this encounter Care Teams Radio Sportscaster Relationship Specialty Start Date End Date NameRock MD [address] [place] [address] PCP - General Family Medicine 07/04/15 documented as of this encounter
== END 2024-07-03 13:20 | disposition home or self-care (01) ==
LOC: HO.LAB 13:19
PROVIDERS: PCP Internal Medicine Geriatric Medicine; Visit Provider Student in an Organized Health Care Education/Training Program
DX: E89.0 Postprocedural hypothyroidism (principal); Z85.850 Personal history of malignant neoplasm of thyroid
CPT/HCPCS: 36415; 84439; 84443; 99212

== ENCOUNTER 2024-08-16 15:03 | Outpatient (REF) | payer MEDICARE, MEDICAID, SELFPAY ==
--- OUTSIDE RECORDS SUMMARY | 2024-08-16 17:49 | XMS_ITS | Encounter Summary ---
Author Organization [employer] Address [address] [facility] 7 [place] [address] Care Team Providers Care Transport Aide Name Role Phone Name, Rock DE PAZ Primary Care Provider [phone] Reason for Visit * Reason Comments Med Refill Encounter Details Date Type Department Care Team ([facility] Contact Info) Description 09/21/2022 Refill [facility] [address] [place] [address] [phone] Name, MD Rock [address] [place] [address] Insomnia, unspecified type; Pain Social History Tobacco [...] Upcoming Encounters Date Type Department Care Team ([facility] Contact Info) Description 09/06/2024 3:30 PM EDT Office Visit [facility] [address] [place] [address] Name, MD Rock [address] [place] [address] documented as of this encounter Visit Diagnoses Diagnosis Insomnia, unspecified type Pain Generalized pain documented in this encounter Care Teams Transport Aide Relationship Specialty Start Date End Date Name, [place] [address] PCP - General Family Medicine 07/04/15 documented as of this encounter
--- OUTSIDE RECORDS SUMMARY | 2024-08-16 17:49 | XMS_ITS | Encounter Summary ---
Author Organization [employer] Address [address] [facility] 7 [place] [address] Care Team Providers Care Allergy Specialist Name Role Phone Name, Rock DE PAZ Primary Care Provider [phone] Reason for Visit * Reason Onset Date Comments Med Refill 04/27/2024 Encounter Details Date Type Department Care Team (Late st Contact Info) Description 04/27/2024 Refill [facility] [address] [place], [place] [phone] Name, MD Rock [address] [place], [place] [phone] Chronic pain syndrome Social History Tobacco Use [...] Care Team (Late st Contact Info) Description 09/06/2024 3:30 PM EDT Office Visit [facility] [address] [place] [address] NameRock MD [address] [place] [address] documented as of this encounter Visit Diagnoses Diagnosis Chronic pain syndrome documented in this encounter Additional Health Concerns Assessment Noted Time PHQ-9 Depression Total Score: 12 024 2:16 PM EDT documented as of this encounter Care Teams Allergy Specialist Relationship Specialty Start Date End Date NameRock MD [address] [place] [address] PCP - General Family Medicine 07/04/15 documented as of this encounter
--- OUTSIDE RECORDS SUMMARY | 2024-08-16 17:49 | XMS_ITS | Encounter Summary ---
Author Organization [employer] Address 75 [facility] 7t [place] [address] Care Team Providers Care Plater Barrel Name Role Phone Name, Rock DE PAZ Primary Care Provider [phone] Reason for Visit * Reason Comments Med Refill Encounter Details Date Type Department Care Team (Late st Contact Info) Description 04/26/2023 Refill [facility] [address] [place], [place] [phone] Name, MD Rock [address] [place], [place] [phone] Insomnia, unspecified type Social History Tobacco Use [...] Description 09/06/2024 3:30 PM EDT Office Visit [facility] [address] [place] [address] Name, MD Rock [address] [place] [address] documented as of this encounter Visit Diagnoses Diagnosis Insomnia, unspecified type documented in this encounter Additional Health Concerns Assessment Noted Time PHQ-9 Depression Total Score: 21 023 10:14 AM EDT documented as of this encounter Care Teams Plater Barrel Relationship Specialty Start Date End Date NameRock MD [address] [place] [address] PCP - General Family Medicine 07/04/15 documented as of this encounter
--- OUTSIDE RECORDS SUMMARY | 2024-08-16 17:49 | XMS_ITS | Data Portability ---
Author Organization [place] - [facility], [facility], [facility] Address [address] [place] [id number] Care Team Providers Care Aircraft Servicer Name Role Phone RITA MICHEL Referring Provider Assessment No assessment recorded. Plan of Treatment Reminders Order Date Submit Date Provider Last Modified By Organization Details Last Modified Time Details Appointments None recorded. Lab None recorded. Referral None recorded. Procedures None recorded. Surgeries None recorded. Imaging None recorded. Medication Orders Augmentin 875 mg-125 mg tablet 2020 021 ISAK [id number], [address] [place], [address], 11:35:58 tramadol 50 mg tablet 2020 021 ISAK [id number], [address] [place], [address], 11:40:00 Patient TargetsNo targets recorded. Patient Instructions Encounter Date Encounter Id Patient Instructions Last Modified By Organization Details Last Modified Time 09/11/2020 [id number] Follow-up with PCP, or if can't get in with PCP, at the walk-in if no better or ER if any worse, or any red flag symptoms. Patient voiced understanding and agreement with treatment plan. [email or web address] Not available 09/11/2020 16:39:46 Reason for Referral None Reported. Problems Name Problem SNOMED Code Status Onset Date Resolution Date Notes Provider Name and Address Organization Details Recorded Time Hypercholes terolemia 20362776 Active 2020 Elissa clements [place] - [facility], [facility] 10:58:44 Insomnia 157018870 [facility] 11:06:37 Depressive disorder 34740552 Active 2020 Elissa clements [facility], [facility] 11:06:55 Anxiety 61014239 Active 2020 Elissa clements [facility], [facility] 11:07:11 Hyperthyroi dism 45637227 [facility] 11:07:58 Carcinoma of thyroid 299962618 [facility] 11:08:23 Acid reflux 148311389 [facility] 11:08:33 Gastroesoph ageal reflux disease 833056532 [facility] 11:09:08 History of back pain 9532295809276 02 [facility] Problem Notes None recorded. Medical Equipment None Reported. Allergies Allergen ID Allergen Name Allergen Category Reaction Reaction Severity Criticality Documentation Date Start Date Code Code System Note Provider Name and Address Organization Details Recorded Time 753475 Product containin g 3-hydroxy -3-methyl glutaryl- coenzyme A reductase inhibitor (product) medicatio n anaphylax is itching rash Not available Not available Not available Not available 09/11/2020 86610 009 [facility] 10:49:15 485350 Substance with sulfonami de structure and antibacte rial mechanism of action (substanc e) medicatio n itching rash Not available Not available Not available 09/11/2020 86168 8003 [facility]ED [facility] 10:49:15 Medications Name Sig Start Date [...] Address Organization Details Last Updated DateTime 1 546574. 09 g 39.2 kg/m2 170.18 cm 96.8 [degF] 82 /min 98 % 98 % 17 /min 124 mm[Hg] 80 mm[Hg] Elissa Loredo [facility], [facility] 10:55:03 Social History Question Answer Notes LastModified by Organizat ion Details LastModified Time Tobacco Smoking Status Former Smoker Elissa clements [facility], [facility] 09/11/2020 10:49:15 How Much Tobacco Do You Chew? None Information not available 09/11/2020 Do You Or Have You Ever Used E-cigarettes Or Vape? Never Used Electronic Cigarettes [email or web address] Information not available 09/11/2020 Marital Status [email or web address] Informatio n not available 09/11/2020 Do You Or Have You Ever Used Smokeless Tobacco? Never Used Smokeless Tobacco [email or web address] Information not available 09/11/2020 How Much Tobacco Do You Smoke? No [email or web address] Information not available 09/11/2020 Sex: Unknown Functional Status None recorded. Mental Status None recorded. Family History Relationship Description Onset Age of this Age Resolved Age Notes LastModified by Organization Details LastModified Time Unspecified Relation Family history of malignant neoplasm [email or web address] Not available 09/11 10:59:06 Medical History Condition [...] SNOMED-CT Code Diagnosis ICD10 Code Diagnosis Note [id number] MD ASHE[facility] [address] [place] [id number] 09/11/2020 10:30:20 09/11/2020 11:53:48 Acute periodontal abscess 21497251 K05.219 Acute. Initial Encounter. Not controlled . Will add Augmentin 875-125 BID x 10 days. (No CKD per pt) Continue Clindamyci n as directed. She is taking probiotics already. Discussed new medication , possible side effects, and risk of CDiff with Clinda as well as other abx. Tramadol offers good pain control. I will send refill until she can f/u with PCP up [place]. She is encouraged to see a dentist in [place] prior to flying back next week. She will call Dr. Melo who she has seen previously . She may need to have this drained. Soft foods only. Tylenol/Mo addis for pain prn. every 6 hours. ER for acute changes Chronic back pain 286363 002 G89.29 Chronic, controlled with Tramadol, stable F/U with PCP up [place] [facility] Concerns Section Related Observation LastModified by Organization Detai ls LastModified Time None Recorded Concern Status LastModified by Organization Details LastModified Time None Recorded Advance Directives Directive None Recorded Payers Encounter Date Sequence Insurance Name Policy Number Policy Walls Covered Member ID Walls Member ID Guarantor Name 09/11/2020 1 [place] Coleen Polo [id number] Coleen Polo Notes Date Note Type [...] have you received? 2 doses Imported from [place] on 09/11/2020 60yo F c/o left lower [...] an appointment to see a dentist in [place]. She denies fever/chills or other symptoms. Jennie Williamson MD [address] [address], [place], [address], [facility] - [facility], [facility] 09/11/2020 21:53:38 OBGyn Episode No OBEpisode recorded.
--- OUTSIDE RECORDS SUMMARY | 2024-08-16 17:49 | XMS_ITS | Encounter Summary ---
Author Organization [employer] Address [address] [place] [address] 7 [place] [address] Care Team Providers Care Drum Maker Name Role Phone Name, Rock DE PAZ Primary Care Provider [phone] Encounter Details Date Type Department Care Team ([facility] Contact Info) Description 05/06/2022 Orders Only [facility] [address] [place] [phone] Karen Falk LPN Social History Tobacco Use [...] Department Care Team (Late Contact Info) Description 09/06/2024 3:30 PM EDT Office Visit [facility] [address] [place] [address] [phone] Name, MD Rock [address] [place] [phone] documented as of this encounter Visit Diagnoses Not on filedocumented in this encounter Care Teams Drum Maker Relationship Specialty Start Date End Date Name, MD Rock [address] [place] [address] PCP - General Family Medicine 07/04/15 documented as of this encounter
--- OUTSIDE RECORDS SUMMARY | 2024-08-16 17:49 | XMS_ITS | Encounter Summary ---
Author Organization [employer] Address [address] [facility] 7 [place] [address] Care Team Providers Care Lead Generation Representative Name Role Phone Name, Rock DE PAZ Primary Care Provider [phone] Reason for Visit * Reason Onset Date Comments Medication Question 05/31/2023 Encounter Details Date Type Department Care Team ([facility] st Contact Info) Description 05/31/2023 Telephone [facility] [address] [place] [address] [phone] Name, MD Rock [address] [place], [place] [phone] Medication Question Social History Tobacco Use Types [...] a week . pt. Advised to call [facility] because medication was prescribe by [facility]. Pt. States automation control technician also prescribe blood works before prescribing these medication, but as per pt. PCP is managing kidney related function and low phosphorus so want to discuss about these medication. Pt. Advised that message will be sent to PCP for review. Please review and advise. Tc from pt requesting to speak with provider in regards to two medications that are being offered by the [facility] [facility] which are Pimwall which has to be injected every single day and Levaradi which is once a week . Pt would like to discuss this with PCP or nurse to verify if it's okay and which medication should she go for due to her medical History. Please contact pt @ [phone] * Telephone Encounter - Esperanza Bravo - 05/31/2023 2:02 PM EST Tc from pt requesting to speak with provider in regards to two medications that are being offered by the [facility] [facility] which are Pimwall which has to be injected every single day and Levaradi whichis once a week . Pt would like to discuss this with PCP or nurse to verify if it's okay and which medication should she go for due to her medical History. Please contact pt @ [phone] documented in this encounter Plan of Treatment Upcoming Encounters Date Type Department Care Team (Late st Contact Info) Description 09/06/2024 3:30 PM EDT Office Visit [facility] [address] [place] [phone] Name, MD Rock [address] [place] [phone] documented as of this encounter Visit Diagnoses Not on filedocumented in this encounter Additional Health Concerns Assessment Noted Time PHQ-9 Depression Total Score: 21 11/20/2 023 10:14 AM EDT documented as of this encounter Care Teams Lead Generation Representative Relationship Specialty Start Date End Date Name, MD Rock [address] [place] [address] PCP - General Family Medicine 07/04/15 documented as of this encounter
--- OUTSIDE RECORDS SUMMARY | 2024-08-16 17:49 | XMS_ITS | Encounter Summary ---
Author Organization [employer] Address [address] [place] [address] 7 [place] [address] Care Team Providers Care Director Of Medical Education Name Role Phone Name, Rock DE PAZ Primary Care Provider Encounter Details Date Type Department Care Team ([facility] Contact Info) Description 09/14/2022 Abstract [facility] [address] [place] [phone] Name, MD Rock [address] [place] [phone] Social History Tobacco Use Types Packs/Day Years [...] Encounters Date Type Department Care Team ([facility] Contact Info) Description 09/06/2024 3:30 PM EDT Office Visit [facility] [address] [place] [phone] Name, MD Rock [address] [place] [address] documented as of this encounter Procedures Procedure Name Priority Date/Time Associated Diagnosis Comments COLONOSCOPY Routine 08/21/2014 9:35 AM EDT documented in this encounter Results * Hm Colonoscopy (08/21/2014 9:35 AM EDT) Colonoscopy Normal Normal Narrative Ilda Rivera - 08/21/2014 9:35 AM EDT Recommended 10 year follow up us Historical Provider HEALTH MAINTENANCE Final Result documented in this encounter Visit Diagnoses Not on filedocumented in this encounter Care Teams Director Of Medical Education Relationship Specialty Start Date End Date Name, MD Rock [address] [place] [address] PCP - General Family Medicine 07/04/15 documented as of this encounter
--- OUTSIDE RECORDS SUMMARY | 2024-08-16 17:49 | XMS_ITS | Encounter Summary ---
Author Organization [employer] Address [address] [place] [address] 7 [place] [address] Care Team Providers Care Accounts Officer Name Role Phone Name, Rock DE PAZ Primary Care Provider [phone] Reason for Visit * Reason Comments Med Refill Encounter Details Date Type Department Care Team (Late st Contact Info) Description 09/16/2022 Refill [facility] [address] [place] [address] [phone] Name, MD Rock [address] [place] [phone] Chronic pain syndrome Social History Tobacco Use [...] Description 09/06/2024 3:30 PM EDT Office Visit [facility] [address] [place] [address] Name, MD Rock [address] [place] [address] documented as of this encounter Visit Diagnoses Diagnosis Chronic pain syndrome documented in this encounter Care Teams Accounts Officer Relationship Specialty Start Date End Date Name, MD Rock [address] [place] [address] PCP - General Family Medicine 07/04/15 documented as of this encounter
--- OUTSIDE RECORDS SUMMARY | 2024-08-16 17:49 | XMS_ITS | Encounter Summary ---
Author Organization [employer] Address [address] [facility] 7t [place] [address] Care Team Providers Care Drawing Hand Name Role Phone Name, Rock DE PAZ Primary Care Provider [phone] Reason for Visit * Reason Comments Med Refill Encounter Details Date Type Department Care Team ([facility] st Contact Info) Description 11/29/2023 Refill [facility] [address] [place] [address] [phone] Name, MD Rock [address] [place] [address] [phone] Chronic pain syndrome Social History Tobacco Use [...] Description 09/06/2024 3:30 PM EDT Office Visit [facility] [address] [place] [address] Name, MD Rock [address] [place] [address] documented as of this encounter Visit Diagnoses Diagnosis Chronic pain syndrome documented in this encounter Additional Health Concerns Assessment Noted Time PHQ-9 Depression Total Score: 12 024 2:16 PM EDT documented as of this encounter Care Teams Drawing Hand Relationship Specialty Start Date End Date Name, MD Rock [address] [place] [address] PCP - General Family Medicine 07/04/15 documented as of this encounter
--- OUTSIDE RECORDS SUMMARY | 2024-08-16 17:49 | XMS_ITS | Encounter Summary ---
Author Organization [employer] Address [address] [place] [address] [place] [address] Care Team Providers Care Defense Attorney Name Role Phone NameRock MD Primary Care Provider [phone] Reason for Visit * Reason Comments Med Refill Encounter Details Date Type Department Care Team (Late st Contact Info) Description 04/08/2022 Refill [facility] [address] [place] [address] Yoni Mccormick MD [address] [place] [address] [phone] Social History Tobacco Use Types Packs/Day Years [...] Description 09/06/2024 3:30 PM EDT Office Visit [facility] [address] [place], [place] [phone] Rock Rodrigues MD [address] [place] [phone] documented as of this encounter Visit Diagnoses Not on filedocumented in this encounter Care Teams Defense Attorney Relationship Specialty Start Date End Date Rock Rodrigues MD [address] [place] [address] PCP - General Family Medicine 07/04/15 documented as of this encounter
--- OUTSIDE RECORDS SUMMARY | 2024-08-16 17:49 | XMS_ITS | Encounter Summary ---
Author Organization [employer] Address [address] [facility] 7t [place] [address] Care Team Providers Care Office Machine Technician Name Role Phone Name, Rock DE PAZ Primary Care Provider [phone] Encounter Details Date Type Department Care Team ([facility] st Contact Info) Description 05/20/2023 Telephone [facility] [address] [place], [place] [phone] Name, MD Rock [address] [place] [address] Social History Tobacco Use Types Packs/Day Years [...] Description 09/06/2024 3:30 PM EDT Office Visit [facility] [address] [place] [address] Name, MD Rock [address] [place] [address] documented as of this encounter Visit Diagnoses Not on filedocumented in this encounter Additional Health Concerns Assessment Noted Time PHQ-9 Depression Total Score: 21 023 10:14 AM EDT documented as of this encounter Care Teams Office Machine Technician Relationship Specialty Start Date End Date Name, MD Rock [address] [place] [address] PCP - General Family Medicine 07/04/15 documented as of this encounter
--- OUTSIDE RECORDS SUMMARY | 2024-08-16 17:49 | XMS_ITS | Encounter Summary ---
Author Organization [employer] Address [address] [place] [address] 7 [place] [address] Care Team Providers Care Press Room Supervisor Name Role Phone Name, Rock DE PAZ Primary Care Provider [phone] Encounter Details Date Type Department Care Team (Late Contact Info) Description 04/30/2022 Orders Only [facility]S [address] [place] [address] Cheyenne Sánchez LPN Social History Tobacco Use [...] Description 09/06/2024 3:30 PM EDT Office Visit [facility] MEDICINE [address] [place], [place] [phone] Name, MD Rock [address] [place], [place] [phone] documented as of this encounter Procedures Procedure Name Priority Date/Time Associated Diagnosis Comments COLLAGEN CROSS-LINKED N-TELOPEPTIDE (NTX), U Routine 05/04/2022 3:06 PM EST THYROGLOBULIN, LC/MS/MS Routine 05/04/19 23 2:30 PM EST VITAMIN D,25-OH,TOTAL,IA Routine 05/04/2022 [...] N Telopetide (NTx) 50 see note H [facility] Comment:Result Units: nM BCE /mM creatPremenopausal Females: 4 - 64 nM BCE/mM creatResults are primarily used for monitoring theresponse to therapy. A value within thepremenopausal range does not rule out osteoporosisnor the need for therapyUnits of Measure: nM BCE/mM creat CREATININE, RANDOM URINE 114 20 - 275 mg/dL [facility] Comment:THIS TEST WAS PERFOR MED AT:[facility] [place] [address]GAVPMIC W. MASON,MD,PHD 05/04/2022 3:06 PM EST 05/04/2022 3:22 PM EST [facility] External Provider LAB URI NE ORDERABLES Final Result Performing Organization Address [facility] Co de Phone Number [facility] [address] [place] [phone] * Protein Electrophoresis and Powell/Lambda Light Chains (05/04/2022 2:30 PM EST) Prot Elec - Total Protein 7.0 6.1 - 8.1 g/dL [facility] Prot Elec - Albumin 4.2 3.8 - 4.8 g/dL [facility] Prot Elec - Alpha1 0.3 0.2 - 0.3 g/dL [facility] Prot Elec - Alpha2 0.8 0.5 - 0.9 g/dL [facility] Prot Elec - Beta 1 0.6 0.4 - 0.6 g/dL [facility] Prot Elec - Beta 2 0.3 0.2 - 0.5 g/dL [facility] Prot Elec - Gamma 0.8 0.8 - 1.7 g/dL [facility] PES - Abn Protein Band 1 [facility] PES-Abn Protein Band 2 [facility] PES-Abn Protein Band 3 [facility] Prot Elec - Interpretation SEE NOTE [facility] Comment:Normal Electrophoret ic PatternTHIS TEST WAS PERFORMED AT:[employer] [address] ([address], [place] [address]MLPSTNANCY ADKINS MD 05/04/2022 2:30 PM EST 05/04/2022 2:33 PM EST [facility] External Provider LAB BLO OD ORDERABLES Final Result Performing Organization Address [facility] Co de Phone Number [facility] [address] [place] [phone] * Alkaline Phosphatase, Bone Specific (05/04/2022 2:30 PM EST) Pathologist [facility] Alkaline Phosphatase, Bone Specific 11.6 5.6 - 29.0 mcg/L [facility] Comment:Reference Range, Pre menopausal (mcg/L) 35-45 years 5.0-18.2THIS TEST WAS PERFORMED AT:[facility] [place] [address]GDIZQILCARMELITA WRIGHT MD,PHD 05/04/2022 2:30 PM EST 05/04/2022 2:33 PM EST [facility] External Provider LAB BLO OD ORDERABLES Final Result Performing Organization Address [facility] Co de Phone Number [facility] [address] [place] [phone] * Thyroid Peroxidase And Thyroglobulin Antibodies (05/04/2022 2:30 PM EST) [facility] Thyroglobulin Antibodies <1 < or = 1 IU/mL [facility] Comment:THIS TEST WAS PERFOR MED AT:[facility] [address] ([address], [place] [address]MRXQYNANCY ADKINS MD 05/04/2022 2:30 PM EST 05/04/2022 2:33 PM EST [facility] External Provider LAB BLO OD ORDERABLES Final Result Performing Organization Address [facility] Co de Phone Number [facility] [address] [place] [phone] * (ABNORMAL) Thyroglobulin, LC/MS/MS (05/04/2022 2:30 PM EST) [facility] Thyroglobulin, LC/MS/MS <0.1(A) ng/mL [facility] Comment:Reference Range: Int act Thyroid 2.8-40.9 Athyrotic <0.1 Note: Abnormal flagging is based on the reference interval for patients with intact thyroid.This test was performed using the Kristen Coulterchemiluminescent method. Values obtained fromdifferent assay methods cannot be usedinterchangeably. Thyroglobulin levels, regardlessof value, should not be interpreted as absoluteevidence of the presence or absence of disease. Thyroglobulin Comment See Below [facility] Comment:Thyroglobulin antibo dies (TGAB) interfere withthyroglobulin (TG) assays; therefore, TGAB assayshould always be performed in conjunction with aTG assay.For additional information, please refer tohttp://education.Promodity/faq/KIM636(This link is being provided for informational/educational purposes only.)THIS TEST WAS PERFORMED AT:[facility] [place] [address] ([facility] [address]JNJTNNANCY ADKINS MD 05/04/2022 2:30 PM EST 05/04/2022 2:33 PM EST [facility] External Provider LAB BLO OD ORDERABLES Final Result [facility] [address] [place] [phone] * PTH, Intact Without Calcium (05/04/2022 2:30 PM EST) PTHI 73 16 - 77 pg/mL [facility] Comment:Interpretive Guide I ntact PTH Calcium -------Normal Parathyroid Normal NormalHypoparathyroidism Low or Low Normal LowHyperparathyroidism Primary Normal or High High Secondary High Normal or Low Tertiary High HighNon-Parathyroid Hypercalcemia Low or Low Normal High Calcium (PTHI) 8.9 8.6 - 10.4 mg/dL [facility] Comment:THIS TEST WAS PERFOR MED AT:[facility] [place] [address] ([facility])[place] [address]RXXSWMAC ADKINS MD 05/04/2022 2:30 PM EST 05/04/2022 2:33 PM EST [facility] External Provider LAB BLO OD ORDERABLES Final Result Performing Organization Address [facility] de Phone Number [facility] [address] [place] [phone] * TSH (05/04/2022 2:30 PM EST) Thyroid Stimulating Hormone 3.46 0.32 - 4.0 uIU/mL [facility] Comment:Note: A sustained TS H level above 2.5 uIU/mL may warrant further investigation. TSH 3rd Generation ([facility]) 05/04/2022 2:30 PM EST 05/04/2022 2:33 PM EST [facility] External Provider LAB BLO OD ORDERABLES Final Result Performing Organization Address [facility] Number [facility] [address] [place] [phone] * T4, Free (05/04/2022 2:30 PM EST) Free T4 (Free Thyroxine) 1.14 0.71 - 1.85 ng/dL [facility] 05/04/2022 2:30 PM EST 05/04/2022 2:33 PM EST [facility] External Provider LAB BLO OD ORDERABLES Final Result Performing Organization Address [facility] de Phone Number [facility] [address] [place] [phone] * Vitamin D, 25-Hydroxy, Total, Immunoassay (05/04/2022 2:30 PM EST) Vitamin D 25-OH Total 25.8 >30 ng/mL [facility] Comment:Health Based Referen ce Values*< 20 ng/mL [id number] ng/mL Insufficient> 30 ng/mL Sufficient*Elver KRUSE. N [...] 2:30 PM EST 05/04/2022 2:33 PM EST [facility] External Provider LAB BLO OD ORDERABLES Final Result Performing Organization Address City/[facility]/ZIP Co de Phone Number [facility] [address] [place] [phone] * Phosphate (As Phosphorus) (05/04/2022 2:30 PM EST) Phosphorus 3.0 2.7 - 4.5 mg/dL [facility] 05/04/2022 2:30 PM EST 05/04/2022 2:33 PM EST [facility] External Provider LAB BLO OD ORDERABLES Final Result Performing Organization Address [facility] Co de Phone Number [facility] [address] [place] [phone] * Comprehensive Metabolic Panel (05/04/2022 2:30 PM EST) Sodium 138 135 - 145 mmol/L [facility] Potassium 4.8 3.3 - 5.1 mmol/L [facility] Chloride 106 96 - 108 mmol/L [facility] Carbon Dioxide 24 22 - 29 mmol/L [facility] Anion Gap 13 12 - 20 [facility] Urea Nitrogen (BUN) 15 9 - 16 mg/dL [facility] Creatinine, Serum 0.85 0.5 - 1.4 mg/dL [facility] Estimated Glomerular Filt Rate >60 [facility] Comment:NOTE: For -Am erican individuals, multiply the result by 1.210.Chronic Kidney Disease: Estimated GFR < 60 mL/min/1.21n0Dawtrf Kidney Disease: Estimated GFR < 15 mL/min/1.73m2 Glucose 90 60 - 115 mg/dL [facility] Calcium 9.0 8.4 - 10.2 mg/dL [facility] Bilirubin, Total 0.3 0.0 - 1.0 mg/dL [facility] Aspartate Amino Transferase 26 5 - 31 U/L [facility] Alanine Aminotransferase 28 0 - 31 U/L [facility] Total Protein 6.8 6.5 - 8.0 g/dL [facility] Albumin Level 4.2 3.5 - 5.0 g/dL [facility] Alkaline Phosphatase 61 39 - 117 U/L [facility] 05/04/2022 2:30 PM EST 05/04/2022 2:33 PM EST [facility] External Provider LAB BLO OD ORDERABLES Final Result [facility] [address] [place] [phone] documented in this encounter Visit Diagnoses Not on filedocumented in this encounter Care Teams Press Room Supervisor Relationship Specialty Start Date End Date Name, MD Rock [address] [place] [phone] PCP - General Family Medicine 07/04/15 documented as of this encounter
--- OUTSIDE RECORDS SUMMARY | 2024-08-16 17:49 | XMS_ITS | Encounter Summary ---
Author Organization [employer] Address [address] [facility] 7t [place] [address] Care Team Providers Care Used Building Materials Yard Worker Name Role Phone Name, Rock DE PAZ Primary Care Provider [phone] Encounter Details Date Type Department Care Team (Late st Contact Info) Description 11/24/2023 Abstract [facility] MEDICINE [address] [place], [place] [phone] Name, MD Rock [address] [place] [address] Social History Tobacco Use Types Packs/Day Years [...] Description 09/06/2024 3:30 PM EDT Office Visit [facility] MEDICINE [address] [place] [phone] Name, MD Rock [address] [place] [phone] documented as of this encounter Procedures Procedure [...] documented as of this encounter Care Teams Used Building Materials Yard Worker Relationship Specialty Start Date End Date Rock Rodrigues MD [address] [place] [phone] PCP - General Family Medicine 07/04/15 documented as of this encounter
--- OUTSIDE RECORDS SUMMARY | 2024-08-16 17:50 | XMS_ITS | Encounter Summary ---
Author Organization [employer] Address [address] [facility] 7 [place] [address] Care Team Providers Care Express Clerk Name Role Phone Name, Rock DE PAZ Primary Care Provider [phone] Reason for Visit * Reason Onset Date Comments Med Refill 03/03/2024 Encounter Details Date Type Department Care Team (Late st Contact Info) Description 03/03/[address] [facility] MEDICINE [address] [place], [place] [phone] Name, MD Rock [address] [place] [address] Chronic pain syndrome Social History Tobacco Use [...] Description 09/06/2024 3:30 PM EDT Office Visit [facility] MED[facility] [address] [place] [address] NameRock MD [address] [place] [address] documented as of this encounter Visit Diagnoses Diagnosis Chronic pain syndrome documented in this encounter Additional Health Concerns Assessment Noted Time PHQ-9 Depression Total Score: 12 024 2:16 PM EDT documented as of this encounter Care Teams Express Clerk Relationship Specialty Start Date End Date NameRock MD [address] [place] [phone] PCP - General Family Medicine 07/04/15 documented as of this encounter
--- OUTSIDE RECORDS SUMMARY | 2024-08-16 17:50 | XMS_ITS | Encounter Summary ---
Author Organization [employer] Address [address] [facility] 7 [place] [address] Care Team Providers Care Registered Diet Technician Name Role Phone Name, Rock DE PAZ Primary Care Provider Reason for Visit * Reason Onset Date Comments Med Refill 06/14/2024 Encounter Details Date Type Department Care Team (Late st Contact Info) Description 06/14/2024 Refill [facility] MEDICINE [address] [place], [place] [phone] Name, MD Rock [address] [place], [place] [phone] Chronic pain syndrome Social History Tobacco Use [...] Description 09/06/2024 3:30 PM EDT Office Visit [facility] MEDICINE [address] [place] [phone] Name, MD Rock [address] [place] [phone] documented as of this encounter Visit Diagnoses Diagnosis Chronic pain syndrome documented in this encounter Additional Health Concerns Assessment Noted Time PHQ-9 Depression Total Score: 17 025 2:50 PM EST documented as of this encounter Care Teams Registered Diet Technician Relationship Specialty Start Date End Date Name, MD Rock [address] [place] [address] PCP - General Family Medicine 07/04/15 documented as of this encounter
--- OUTSIDE RECORDS SUMMARY | 2024-08-16 17:50 | XMS_ITS | Encounter Summary ---
Author Organization [employer] Address [address] [facility] 7 [place] [address] Care Team Providers Care Paper Final Inspector Name Role Phone Name, Rock DE PAZ Primary Care Provider [phone] Reason for Visit * Reason Onset Date Comments Med Refill 02/09/2024 Encounter Details Date Type Department Care Team (Late st Contact Info) Description 02/09/2024 Refill [facility] [address] [place], [place] [phone] Name, MD Rock [address] [place] [address] Chronic pain syndrome Social History Tobacco Use [...] Description 09/06/2024 3:30 PM EDT Office Visit [facility] [address] [place] [address] NameRock MD [address] [place] [address] documented as of this encounter Visit Diagnoses Diagnosis Chronic pain syndrome documented in this encounter Additional Health Concerns Assessment Noted Time PHQ-9 Depression Total Score: 12 024 2:16 PM EDT documented as of this encounter Care Teams Paper Final Inspector Relationship Specialty Start Date End Date NameRock MD [address] [place] [address] PCP - General Family Medicine 07/04/15 documented as of this encounter
--- OUTSIDE RECORDS SUMMARY | 2024-08-16 17:50 | XMS_ITS | Encounter Summary ---
Author Organization [employer] Address [address] [facility] 7 [place] [address] Care Team Providers Care Curator Of Photography And Prints Name Role Phone Name, Rock DE PAZ Primary Care Provider [phone] Reason for Visit * Reason Onset Date Comments Med Refill 05/08/2024 Encounter Details Date Type Department Care Team (Late st Contact Info) Description 05/08/2024 Refill [facility] MEDICINE 230 [place], [place] [phone] Name, MD Rock [address] [place], [place] [phone] Chronic pain syndrome; Insomnia, unspecified type Social [...] 3:30 PM EDT Office Visit [facility] MEDICINE [address] [place] [phone] NameRock MD [address] [place] [address] documented as of this encounter Visit Diagnoses Diagnosis Chronic pain syndrome Insomnia, unspecified type documented in this encounter Additional Health Concerns Assessment Noted Time PHQ-9 Depression Total Score: 12 024 2:16 PM EDT documented as of this encounter Care Teams Curator Of Photography And Prints Relationship Specialty Start Date End Date NameRock MD [address] [place] [phone] PCP - General Family Medicine 07/04/15 documented as of this encounter
--- OUTSIDE RECORDS SUMMARY | 2024-08-16 17:50 | XMS_ITS | Encounter Summary ---
Author Organization [employer] Address [address] [facility] 7 [place] [address] Care Team Providers Care Professional Nurse Name Role Phone Name, Rock DE PAZ Primary Care Provider [phone] Reason for Visit * Reason Onset Date Comments Med Refill 08/01/2024 Encounter Details Date Type Department Care Team (Late st Contact Info) Description 08/01/2024 Refill [facility] MEDICINE [address] [place], [place] [phone] Name, MD Rock [address] [place], [place] [phone] Chronic pain syndrome Social History Tobacco Use [...] Description 09/06/2024 3:30 PM EDT Office Visit [facility] MEDICINE [address] [place] [phone] Name, MD Rock [address] [place] [address] documented as of this encounter Visit Diagnoses Diagnosis Chronic pain syndrome documented in this encounter Additional Health Concerns Assessment Noted Time PHQ-9 Depression Total Score: 17 025 2:50 PM EST documented as of this encounter Care Teams Professional Nurse Relationship Specialty Start Date End Date Name, MD Rock [address] [place] [phone] PCP - General Family Medicine 07/04/15 documented as of this encounter
--- OUTSIDE RECORDS SUMMARY | 2024-08-16 17:50 | XMS_ITS | Encounter Summary ---
Author Organization [employer] Address [address] [facility] 7 [place] [address] Care Team Providers Care Lathe Spotter Name Role Phone Name, Rock DE PAZ Primary Care Provider Reason for Visit * Reason Onset Date Comments Med Refill 08/11/2024 Encounter Details Date Type Department Care Team (Late st Contact Info) Description 08/11/[address] [facility] MEDICINE [address] [place], [place] [phone] Name, MD Rock [address] [place], [place] [phone] Chronic pain syndrome; Insomnia, unspecified type Social [...] 09/06/2024 3:30 PM EDT Office Visit [facility] MEDICINE [address] [place] [address] NameRock MD [address] [place] [address] documented as of this encounter Visit Diagnoses Diagnosis Chronic pain syndrome Insomnia, unspecified type documented in this encounter Additional Health Concerns Assessment Noted Time PHQ-9 Depression Total Score: 17 025 2:50 PM EST documented as of this encounter Care Teams Lathe Spotter Relationship Specialty Start Date End Date NameRock MD [address] [place] [phone] PCP - General Family Medicine 07/04/15 documented as of this encounter
--- OUTSIDE RECORDS SUMMARY | 2024-08-16 17:50 | XMS_ITS | Encounter Summary ---
Author Organization [employer] Address [address] [facility] 7 [place] [address] Care Team Providers Care Barrel Line Operator Name Role Phone Name, Rock DE PAZ Primary Care Provider [phone] Reason for Visit * Reason Comments Med Refill Encounter Details Date Type Department Care Team (Late st Contact Info) Description 11/26/2022 Refill [facility] MEDICINE [address] [place], [place] [phone] Name, MD Rock [address] [place] [address] Chronic pain syndrome Social History Tobacco Use [...] Description 09/06/2024 3:30 PM EDT Office Visit [facility] MEDICINE [address] [place] [address] Name, MD Rock [address] [place] [address] documented as of this encounter Visit Diagnoses Diagnosis Chronic pain syndrome documented in this encounter Additional Health Concerns Assessment Noted Time PHQ-9 Depression Total Score: 21 023 10:14 AM EDT documented as of this encounter Care Teams Barrel Line Operator Relationship Specialty Start Date End Date Name, MD Rock [address] [place] [address] PCP - General Family Medicine 07/04/15 documented as of this encounter
--- OUTSIDE RECORDS SUMMARY | 2024-08-16 17:50 | XMS_ITS | Encounter Summary ---
Author Organization [employer] Address [address] [facility] 7 [place] [address] Care Team Providers Care Gunner'S Mate M Name Role Phone Name, Rock DE PAZ Primary Care Provider Reason for Visit * Reason Onset Date Comments Med Refill 03/10/2024 Encounter Details Date Type Department Care Team ([facility] st Contact Info) Description 03/10/2024 Refill [facility] MEDICINE 230 [place], [place] [phone] Name, MD Rock 230 [place], [place] [phone] Hypophosphatemia Social History Tobacco Use Types Packs/Day [...] Description 09/06/2024 3:30 PM EDT Office Visit [facility] MEDICINE [address] [place] [phone] Name, MD Rock [address] [place] [address] documented as of this encounter Visit Diagnoses Diagnosis Hypophosphatemia Disorders of phosphorus metabolism documented in this encounter Additional Health Concerns Assessment Noted Time PHQ-9 Depression Total Score: 12 024 2:16 PM EDT documented as of this encounter Care Teams Gunner'S Mate M Relationship Specialty Start Date End Date NameRock MD [address] [place] [phone] PCP - General Family Medicine 07/04/15 documented as of this encounter
--- OUTSIDE RECORDS SUMMARY | 2024-08-16 17:50 | XMS_ITS | Encounter Summary ---
Author Organization [employer] Address 75 [facility] 7 [place] [address] Care Team Providers Care Technical Service Engineer Name Role Phone Name, Rock DE PAZ Primary Care Provider [phone] Reason for Visit * Reason Onset Date Comments Med Refill 06/16/2024 Encounter Details Date Type Department Care Team (Late st Contact Info) Description 06/16/[address] [facility] MEDICINE 230 [place], [place] [phone] Name, MD Rock 230 [place], [place] [phone] Chronic pain syndrome Social History Tobacco Use [...] Description 09/06/2024 3:30 PM EDT Office Visit [facility] MEDICINE [address] [place] [address] Name, MD Rock [address] [place] [address] documented as of this encounter Visit Diagnoses Diagnosis Chronic pain syndrome documented in this encounter Additional Health Concerns Assessment Noted Time PHQ-9 Depression Total Score: 17 025 2:50 PM EST documented as of this encounter Care Teams Technical Service Engineer Relationship Specialty Start Date End Date Name, MD Rock [address] [place] [address] PCP - General Family Medicine 07/04/15 documented as of this encounter
--- OUTSIDE RECORDS SUMMARY | 2024-08-16 17:50 | XMS_ITS | Encounter Summary ---
Author Organization [employer] Address 75 [facility] 7 [place] [address] Care Team Providers Care Pulmonary Care Nurse Name Role Phone Name, Rock DE PAZ Primary Care Provider [phone] Reason for Visit * Reason Comments Med Refill Encounter Details Date Type Department Care Team (Late st Contact Info) Description 11/20/2022 Refill [facility] MEDICINE 230 [place] [address] Fany Pearson MD 230 [place] [address] Chronic pain syndrome; Insomnia, unspecified type Social [...] Description 09/06/2024 3:30 PM EDT Office Visit [facility] MEDICINE 230 [place] [address] Name, MD Rock [address] [place] [address] documented as of this encounter Visit Diagnoses Diagnosis Chronic pain syndrome Insomnia, unspecified type documented in this encounter Additional Health Concerns Assessment Noted Time PHQ-9 Depression Total Score: 21 11/20/ 023 10:14 AM EDT documented as of this encounter Care Teams Pulmonary Care Nurse Relationship Specialty Start Date End Date Name, [place] [address] PCP - General Family Medicine 07/04/15 documented as of this encounter
--- OUTSIDE RECORDS SUMMARY | 2024-08-16 17:50 | XMS_ITS | Encounter Summary ---
Author Organization [employer] Address 75 [facility] 7 [place] [address] Care Team Providers Care Water Quality Assistant Name Role Phone Name, Rock DE PAZ Primary Care Provider [phone] Reason for Visit * Reason Onset Date Comments Med Refill 02/09/2024 Encounter Details Date Type Department Care Team (Late st Contact Info) Description 02/09/2024 Refill [facility] MEDICINE 230 [place], [place] [phone] Name, MD Rock 230 [place], [place] [phone] Chronic pain syndrome; Insomnia, unspecified type Social [...] Description 09/06/2024 3:30 PM EDT Office Visit [facility] MEDICINE [address] [place] [address] NameRock MD 230 [place] [address] documented as of this encounter Visit Diagnoses Diagnosis Chronic pain syndrome Insomnia, unspecified type documented in this encounter Additional Health Concerns Assessment Noted Time PHQ-9 Depression Total Score: 12 024 2:16 PM EDT documented as of this encounter Care Teams Water Quality Assistant Relationship Specialty Start Date End Date NameRock MD [address] [place] [address] PCP - General Family Medicine 07/04/15 documented as of this encounter
--- OUTSIDE RECORDS SUMMARY | 2024-08-16 17:50 | XMS_ITS | Encounter Summary ---
Author Organization [employer] Address 75 [facility] 7 [place] [address] Care Team Providers Care Bricklayer Supervisor Name Role Phone Name, Rock DE PAZ Primary Care Provider [phone] Reason for Visit * Reason Onset Date Comments Med Refill 01/31/2024 Encounter Details Date Type Department Care Team ([facility] st Contact Info) Description 01/31/2024 Refill [facility] MED & PEDS [address] [place] [address] Juhi Diaz, FUR DRESSING SUPERVISOR 505 [place] [address] Chronic pain syndrome; Insomnia, unspecified type Social [...] Description 09/06/2024 3:30 PM EDT Office Visit [facility] MEDICINE [address] [place] [address] NameRock MD 230 [place] [address] documented as of this encounter Visit Diagnoses Diagnosis Chronic pain syndrome Insomnia, unspecified type documented in this encounter Additional Health Concerns Assessment Noted Time PHQ-9 Depression Total Score: 12 024 2:16 PM EDT documented as of this encounter Care Teams Bricklayer Supervisor Relationship Specialty Start Date End Date NameRock MD [address] [place] [address] PCP - General Family Medicine 07/04/15 documented as of this encounter
--- OUTSIDE RECORDS SUMMARY | 2024-08-16 17:50 | XMS_ITS | Encounter Summary ---
Author Organization [employer] Address 75 [facility] 7 [place] [address] Care Team Providers Care Heavy Equipment Rental Manager Name Role Phone Name, Rock DE PAZ Primary Care Provider [phone] Reason for Visit * Reason Onset Date Comments Med Refill 05/09/2024 Encounter Details Date Type Department Care Team (Late st Contact Info) Description 05/09/2024 Refill [facility] MEDICINE 230 [place], [place] [phone] Name, MD Rock 230 [place], [place] [phone] Rhinorrhea Social History Tobacco Use Types Packs/Day [...] Description 09/06/2024 3:30 PM EDT Office Visit [facility] MEDICINE 230 [place] [address] Name, MD Rock 230 [place] [address] documented as of this encounter Visit Diagnoses Diagnosis Rhinorrhea Other diseases of nasal cavity and sinuses documented in this encounter Additional Health Concerns Assessment Noted Time PHQ-9 Depression Total Score: 12 024 2:16 PM EDT documented as of this encounter Care Teams Heavy Equipment Rental Manager Relationship Specialty Start Date End Date NameRock MD [address] [place] [address] PCP - General Family Medicine 07/04/15 documented as of this encounter
--- OUTSIDE RECORDS SUMMARY | 2024-08-16 17:50 | XMS_ITS | Encounter Summary ---
Author Organization [employer] Address 75 [facility] 7 [place] [address] Care Team Providers Care C Iron Worker Name Role Phone Name, Rock DE PAZ Primary Care Provider [phone] Reason for Visit * Reason Onset Date Comments Med Refill 03/02/2024 Encounter Details Date Type Department Care Team (Late st Contact Info) Description 03/02/2024 Refill [facility] MEDICINE 230 [place], [place] [phone] Name, MD Rock 230 [place] [address] Social History Tobacco Use Types Packs/Day Years [...] Description 09/06/2024 3:30 PM EDT Office Visit [facility] MEDICINE 230 [place] [address] Name, MD Rock [address] [place] [address] documented as of this encounter Visit Diagnoses Not on filedocumented in this encounter Additional Health Concerns Assessment Noted Time PHQ-9 Depression Total Score: 12 024 2:16 PM EDT documented as of this encounter Care Teams C Iron Worker Relationship Specialty Start Date End Date NameRock MD 230 [place] [address] PCP - General Family Medicine 07/04/15 documented as of this encounter
--- OUTSIDE RECORDS SUMMARY | 2024-08-16 17:50 | XMS_ITS | Encounter Summary ---
Author Organization [employer] Address 75 [facility] 7 [place] [address] Care Team Providers Care Marble Finisher Name Role Phone Name, Rock DE PAZ Primary Care Provider [phone] Reason for Visit * Reason Onset Date Comments Med Refill 03/10/2024 Encounter Details Date Type Department Care Team (Late st Contact Info) Description 03/10/2024 Refill [facility] MEDICINE 230 [place], [place] [phone] Name, MD Rock 230 [place], [place] [phone] Insomnia, unspecified type Social History Tobacco Use [...] Description 09/06/2024 3:30 PM EDT Office Visit [facility] MEDICINE [address] [place] [address] NameRock MD 230 [place] [address] documented as of this encounter Visit Diagnoses Diagnosis Insomnia, unspecified type documented in this encounter Additional Health Concerns Assessment Noted Time PHQ-9 Depression Total Score: 12 024 2:16 PM EDT documented as of this encounter Care Teams Marble Finisher Relationship Specialty Start Date End Date NameRock MD [address] [place] [address] PCP - General Family Medicine 07/04/15 documented as of this encounter
--- OUTSIDE RECORDS SUMMARY | 2024-08-16 17:50 | XMS_ITS | Encounter Summary ---
Author Organization [employer] Address 75 [facility] 7 [place] [address] Care Team Providers Care Supply Officer Name Role Phone Name, Rock DE PAZ Primary Care Provider [phone] Reason for Visit * Reason Onset Date Comments Med Refill 02/09/2024 Encounter Details Date Type Department Care Team (Late st Contact Info) Description 02/09/2024 Refill [facility] MEDICINE 230 [place], [place] [phone] Name, MD Rock 230 [place], [place] [phone] Insomnia, unspecified type Social History Tobacco Use [...] Description 09/06/2024 3:30 PM EDT Office Visit [facility] MEDICINE [address] [place] [address] NameRock MD 230 [place] [address] documented as of this encounter Visit Diagnoses Diagnosis Insomnia, unspecified type documented in this encounter Additional Health Concerns Assessment Noted Time PHQ-9 Depression Total Score: 12 024 2:16 PM EDT documented as of this encounter Care Teams Supply Officer Relationship Specialty Start Date End Date NameRock MD [address] [place] [address] PCP - General Family Medicine 07/04/15 documented as of this encounter
--- OUTSIDE RECORDS SUMMARY | 2024-08-16 17:50 | XMS_ITS | Encounter Summary ---
Author Organization [employer] Address 75 [facility] 7 [place] [address] Care Team Providers Care Well Drill Operator Cable Tool Name Role Phone Name, Rock DE PAZ Primary Care Provider [phone] Reason for Visit * Reason Comments Med Refill Encounter Details Date Type Department Care Team (Late st Contact Info) Description 11/23/2022 Refill [facility] MEDICINE 230 [place] [address] Fany Pearson MD 230 [place] [address] Chronic pain syndrome; Insomnia, unspecified type Social [...] Description 09/06/2024 3:30 PM EDT Office Visit [facility] MEDICINE 230 [place] [address] Name, MD Rock 230 [place] [address] documented as of this encounter Visit Diagnoses Diagnosis Chronic pain syndrome Insomnia, unspecified type documented in this encounter Additional Health Concerns Assessment Noted Time PHQ-9 Depression Total Score: 21 11/20/ 023 10:14 AM EDT documented as of this encounter Care Teams Well Drill Operator Cable Tool Relationship Specialty Start Date End Date Name, [place] [address] PCP - General Family Medicine 07/04/15 documented as of this encounter
--- OUTSIDE RECORDS SUMMARY | 2024-08-16 17:50 | XMS_ITS | Encounter Summary ---
Author Organization [employer] Address 75 [facility] 7 [place] [address] Care Team Providers Care Back Wedger Name Role Phone Name, Rock DE PAZ Primary Care Provider [phone] Reason for Visit * Reason Onset Date Comments Med Refill 06/03/2024 Encounter Details Date Type Department Care Team (Late st Contact Info) Description 06/03/2024 Refill [facility] MEDICINE 230 [place], [place] [phone] Name, MD Rock 230 [place], [place] [phone] Hypophosphatemia Social History Tobacco Use Types Packs/Day [...] 09/06/2024 3:30 PM EDT Office Visit [facility] MEDICINE 230 [place] [address] Name, MD Rock 230 [place] [address] documented as of this encounter Visit Diagnoses Diagnosis Hypophosphatemia Disorders of phosphorus metabolism documented in this encounter Additional Health Concerns Assessment Noted Time PHQ-9 Depression Total Score: 17 025 2:50 PM EST documented as of this encounter Care Teams Back Wedger Relationship Specialty Start Date End Date NameRock MD 230 [place] [address] PCP - General Family Medicine 07/04/15 documented as of this encounter
--- OUTSIDE RECORDS SUMMARY | 2024-08-16 17:50 | XMS_ITS | Encounter Summary ---
Author Organization [employer] Address 75 [facility] 7 [place] [address] Care Team Providers Care Protective Service Specialist Name Role Phone Name, Rock DE PAZ Primary Care Provider [phone] Reason for Visit * Reason Onset Date Comments Med Refill 02/09/2024 Encounter Details Date Type Department Care Team (Late st Contact Info) Description 02/09/2024 Refill [facility] MEDICINE 230 [place], [place] [phone] Name, MD Rock 230 [place] [address] Social History Tobacco Use Types Packs/Day Years [...] Description 09/06/2024 3:30 PM EDT Office Visit [facility] MEDICINE 230 [place] [address] Name, MD Rock 230 [place] [address] documented as of this encounter Visit Diagnoses Not on filedocumented in this encounter Additional Health Concerns Assessment Noted Time PHQ-9 Depression Total Score: 12 024 2:16 PM EDT documented as of this encounter Care Teams Protective Service Specialist Relationship Specialty Start Date End Date NameRock MD 230 [place] [address] PCP - General Family Medicine 07/04/15 documented as of this encounter
--- OUTSIDE RECORDS SUMMARY | 2024-08-16 17:50 | XMS_ITS | Encounter Summary ---
Author Organization [employer] Address 75 [facility] 7 [place] [address] Care Team Providers Care Appeals Nurse Name Role Phone Name, Rock DE PAZ Primary Care Provider [phone] Reason for Visit * Reason Onset Date Comments Med Refill 05/08/2024 Encounter Details Date Type Department Care Team ([facility] st Contact Info) Description 05/08/2024 Refill [facility] MED & PEDS 505 [place] [address] Name, MD Rock 230 [place] [address] Rhinorrhea Social History Tobacco Use Types Packs/Day [...] 3:30 PM EDT Office Visit [facility] MEDICINE [address] [place] [address] Name, MD Rock 230 [place] [address] documented as of this encounter Visit Diagnoses Diagnosis Rhinorrhea Other diseases of nasal cavity and sinuses documented in this encounter Additional Health Concerns Assessment Noted Time PHQ-9 Depression Total Score: 12 024 2:16 PM EDT documented as of this encounter Care Teams Appeals Nurse Relationship Specialty Start Date End Date NameRock MD [address] [place] [address] PCP - General Family Medicine 07/04/15 documented as of this encounter
--- OUTSIDE RECORDS SUMMARY | 2024-08-16 17:50 | XMS_ITS | Encounter Summary ---
Author Organization [employer] Address 75 [facility] 7 [place] [address] Care Team Providers Care Medical Chemist Name Role Phone Name, Rock DE PAZ Primary Care Provider [phone] Reason for Visit * Reason Onset Date Comments Med Refill 03/02/2024 Encounter Details Date Type Department Care Team (Late st Contact Info) Description 03/02/2024 Refill [facility] MEDICINE 230 [place], [place] [phone] Name, MD Rock 230 [place] [address] Chronic pain syndrome Social History Tobacco Use [...] Description 09/06/2024 3:30 PM EDT Office Visit [facility] MEDICINE 230 [place] [address] NameRock MD 230 [place] [address] documented as of this encounter Visit Diagnoses Diagnosis Chronic pain syndrome documented in this encounter Additional Health Concerns Assessment Noted Time PHQ-9 Depression Total Score: 12 024 2:16 PM EDT documented as of this encounter Care Teams Medical Chemist Relationship Specialty Start Date End Date NameRock MD [address] [place] [address] PCP - General Family Medicine 07/04/15 documented as of this encounter
--- OUTSIDE RECORDS SUMMARY | 2024-08-16 17:50 | XMS_ITS | Encounter Summary ---
Author Organization [employer] Address 75 [facility] 7 [place] [address] Care Team Providers Care B2B Sales Representative Name Role Phone Name, Rock DE PAZ Primary Care Provider [phone] Reason for Visit * Reason Onset Date Comments Med Refill 07/09/2024 Encounter Details Date Type Department Care Team (Late st Contact Info) Description 07/09/2024 Refill [facility] MEDICINE 230 [place], [place] [phone] Name, MD Rock 230 [place], [place] [phone] Chronic pain syndrome Social History Tobacco Use [...] 09/06/2024 3:30 PM EDT Office Visit [facility] MEDICINE [address] [place] [address] Name, MD Rock [address] [place] [address] documented as of this encounter Visit Diagnoses Diagnosis Chronic pain syndrome documented in this encounter Additional Health Concerns Assessment Noted Time PHQ-9 Depression Total Score: 17 025 2:50 PM EST documented as of this encounter Care Teams B2B Sales Representative Relationship Specialty Start Date End Date Name, MD Rock [address] [place] [address] PCP - General Family Medicine 07/04/15 documented as of this encounter
--- OUTSIDE RECORDS SUMMARY | 2024-08-16 17:50 | XMS_ITS | Encounter Summary ---
Author Organization [employer] Address [address] [place] [address] Care Team Providers Care Commercial Teller Name Role Phone Name, Rock DE PAZ Primary Care Provider [phone] Reason for Visit * Reason Comments Med Refill Encounter Details Date Type Department Care Team ([facility] st Contact Info) Description 03/04/2023 Refill [facility] MEDICINE 230 [place] [address] Christine Doe, QUENTIN [address] [place] [address] Dept of [place] [address] Social History Tobacco Use Types Packs/Day Years [...] 3:30 PM EDT Office Visit [facility] MEDICINE 230 [place] [address] Name, MD Rock 230 [place] [address] documented as of this encounter Visit Diagnoses Not on filedocumented in this encounter Additional Health Concerns Assessment Noted Time PHQ-9 Depression Total Score: 21 023 10:14 AM EDT documented as of this encounter Care Teams Commercial Teller Relationship Specialty Start Date End Date NameRock MD [address] [place] [address] PCP - General Family Medicine 07/04/15 documented as of this encounter
--- OUTSIDE RECORDS SUMMARY | 2024-08-16 17:50 | XMS_ITS | Encounter Summary ---
Author Organization [employer] Address 75 [facility] 7 [place] [address] Care Team Providers Care E Commerce Marketing Manager Name Role Phone Name, Rock DE PAZ Primary Care Provider [phone] Reason for Visit * Reason Comments Med Refill Encounter Details Date Type Department Care Team (Late st Contact Info) Description 07/31/2024 Refill [facility] MEDICINE 230 [place], [place] [phone] Name, MD Rock 230 [place], [place] [phone] Chronic pain syndrome Social History Tobacco Use [...] Description 09/06/2024 3:30 PM EDT Office Visit [facility] MEDICINE 230 [place] [address] Name, MD Rock 230 [place] [address] documented as of this encounter Visit Diagnoses Diagnosis Chronic pain syndrome documented in this encounter Additional Health Concerns Assessment Noted Time PHQ-9 Depression Total Score: 17 025 2:50 PM EST documented as of this encounter Care Teams E Commerce Marketing Manager Relationship Specialty Start Date End Date Name, MD Rock [address] [place] [address] PCP - General Family Medicine 07/04/15 documented as of this encounter
--- OUTSIDE RECORDS SUMMARY | 2024-08-16 17:50 | XMS_ITS | Encounter Summary ---
Author Organization [employer] Address 75 [facility] 7 [place] [address] Care Team Providers Care Stabilizer Operator Name Role Phone Name, Rock DE PAZ Primary Care Provider [phone] Reason for Visit * Reason Comments Med Refill Encounter Details Date Type Department Care Team (Late st Contact Info) Description 11/18/2022 Refill [facility] MEDICINE 230 [place], [place] [phone] Name, MD Rock 230 [place] [address] Chronic pain syndrome Social History Tobacco Use [...] Description 09/06/2024 3:30 PM EDT Office Visit [facility] MEDICINE 230 [place] [address] Name, [place] [address] documented as of this encounter Visit Diagnoses Diagnosis Chronic pain syndrome documented in this encounter Care Teams Stabilizer Operator Relationship Specialty Start Date End Date Name, [place] [address] PCP - General Family Medicine 07/04/15 documented as of this encounter
--- OUTSIDE RECORDS SUMMARY | 2024-08-16 17:50 | XMS_ITS | Encounter Summary ---
Author Organization [employer] Address 75 [facility] 7 [place] [address] Care Team Providers Care Concrete Boom Pump Operator Name Role Phone Name, Rock DE PAZ Primary Care Provider [phone] Reason for Visit * Reason Onset Date Comments Med Refill 06/14/2024 Encounter Details Date Type Department Care Team (Late st Contact Info) Description 06/14/2024 Refill [facility] MEDICINE 230 [place], [place] [phone] Name, MD Rock 230 [place], [place] [phone] Chronic pain syndrome Social History Tobacco Use [...] Description 09/06/2024 3:30 PM EDT Office Visit [facility] MEDICINE [address] [place] [address] Name, MD Rock [address] [place] [address] documented as of this encounter Visit Diagnoses Diagnosis Chronic pain syndrome documented in this encounter Additional Health Concerns Assessment Noted Time PHQ-9 Depression Total Score: 17 025 2:50 PM EST documented as of this encounter Care Teams Concrete Boom Pump Operator Relationship Specialty Start Date End Date Name, MD Rock [address] [place] [address] PCP - General Family Medicine 07/04/15 documented as of this encounter
--- OUTSIDE RECORDS SUMMARY | 2024-08-16 17:50 | XMS_ITS | Clinical Summary ---
Author Organization [employer] Address [address] [facility] [address] [place] [address] Care Team Providers Care [employer] Gatherer Name Role Phone Name, Rock DE PAZ [...] AFFECTED AREA TWICE DAILY 100 g Active omeprazole (PriLOSEC) [address] capsuleIndicat ions:Chronic pain syndrome,Insom shital, unspecified type TAKE 1 CAPSULE BY MOUTH TWICE DAILY BEFORE MEAL(S) 180 capsule 1 024 Active loratadine (Claritin) 10 MG tabletIndicati ons:Rhinorrhea [...] BY MOUTH TWICE DAILY 60 tablet 2 025 Active venlafaxine XR (Effexor XR) 150 MG 24 hr capsuleIndicat ions:Hypophosp hatemia TAKE 1 CAPSULE BY MOUTH ONCE DAILY. TAKE WITH 75MG DOSE FOR A TOTAL DOSE OF 225MG DAILY. 90 capsule 1 025 Active fluticasone (Flonase) 50 MCG/ACT nasal sprayIndicatio ns:Rhinorrhea SPRAY 2 SPRAYS INTO EACH NOSTRIL EVER DAY. SHAKE GENTLY. BEFORE FIRST USE, PRIME PUMP. AFTER USE, CLEAN TIP AND REPLACE CAP. 16 g 2 025 Active OXcarbazepine (Trileptal) 150 MG tabletIndicati ons:Hypophosph atemia Take 1 tablet by mouth twice daily 60 tablet 2 025 Active zolpidem (Ambien) 10 MG tabletIndicati ons:Insomnia, unspecified type TAKE 1 TABLET BY MOUTH ONCE DAILY AT BEDTIME NEEDED FOR SLEEP 28 tablet 025 Active carisoprodol (Soma) 350 MG tabletIndicati ons:Chronic pain syndrome TAKE 1 TABLET BY MOUTH ONCE DAILY IN THE MORNING,AT NOON, IN THE EVENING AND AT BEDTIME FOR MUSCLE SPASM FOR UP TO 23 DAYS 90 tablet 025 Active traMADol (Ultram) 50 MG tabletIndicati ons:Chronic pain syndrome TAKE 1 TABLET BY MOUTH EVERY 8 HOURS IF NEEDED FOR SEVERE PAIN 84 tablet 025 Active ezetimibe (Zetia) 10 MG tabletIndicati ons:High cholesterol,St atin intolerance TAKE 1 TABLET BY MOUTH EVERY DAY 90 tablet 1 025 Active venlafaxine XR (Effexor XR) 75 MG 24 hr capsuleIndicat ions:Chronic pain syndrome,Insom shital, unspecified type TAKE 1 CAPSULE BY MOUTH ONCE DAILY WITH FOOD. TAKE WITH 150MG DOSE FOR A TOTAL OF 225MG. 90 capsule 1 025 Active ezetimibe (Zetia) 10 MG tabletIndicati ons:High cholesterol,St atin intolerance TAKE 1 TABLET BY MOUTH EVERY DAY 90 tablet 1 024 2024 Discontinued(R eorder (will not trigger notification to Pharmacy)) venlafaxine XR (Effexor XR) 75 MG 24 hr capsuleIndicat ions:Chronic pain syndrome,Insom shital, unspecified type TAKE 1 CAPSULE BY MOUTH ONCE DAILY WITH FOOD. TAKE WITH 150MG DOSE FOR A TOTAL OF 225MG. 90 capsule 1 024 2024 Discontinued(R eorder (will not trigger notification to Pharmacy)) traMADol (Ultram) 50 MG tabletIndicati ons:Chronic pain syndrome Take 1 tablet (50 mg) by mouth every 8 (eight) hours if needed for severe pain for up to 28 days. 84 tablet 025 2024 Discontinued OXcarbazepine (Trileptal) 150 MG tabletIndicati ons:Hypophosph atemia TAKE 1 TABLET BY MOUTH TWICE DAILY 60 tablet 025 2024 Discontinued zolpidem (Ambien) 10 MG tabletIndicati [...] TO 23 DAYS 90 tablet 025 2024 Discontinued(R eorder (will not [...] Encounters Date Type Department Care Team Description 08/11/2024 Refill [facility] [address] [place] [address] Rock Rodrigues MD Chronic pain syndrome; Insomnia, unspecified type 08/09/2024 Refill [facility] [address] [place] [address] Rock Rodrigues MD High cholesterol; Statin intolerance 08/07/2024 Refill [facility] [address] [place] [address] Rock Rodrigues MD Chronic pain syndrome 08/01/2024 Refill [facility] [address] [place] [address] Rock Rodrigues MD Insomnia, unspecified type; Hypophosphatemia; Chronic pain syndrome 08/01/2024 Refill [facility] [address] [place] [address] Rock Ross MD Chronic pain syndrome 07/31/2024 Refill [facility] [address] [facility] [place] [address] Rock Rodrigues MD Chronic pain syndrome 07/28/2024 11:30 AM EDT Clinical Support [facility] [address] [place] [address] [place] Grayson, SCOUT Rib pain 07/28/2024 Travel 07/27/2024 Refill [facility] [address] [facility] [place] [address] Rock Rodrigues MD Hypophosphatemia 07/24/2024 Telephone [facility] [address] [place] [address] Rock Rodrigues MD Appointment Request 07/09/2024 Refill [facility] [address] [place] [address] Rock Rodrigues MD Rhinorrhea; Chronic pain syndrome 07/09/2024 Refill [facility] [address] [place] [address] Rock Rodrigues MD Chronic pain syndrome 07/03/2024 Orders Only GENERIC EXTERNAL DATA DEPARTMENT Provider, Generic External Data 07/01/2024 Refill [facility] [address] [place] [address] Rock Rodrigues MD Insomnia, unspecified type 06/30/2024 Telephone [facility] [address] [facility] [place] [address] Magdalena Pena MA july recalls 06/28/2024 Refill [facility] [address] [place] [address] Rock Rodrigues MD Hypophosphatemia 06/25/2024 Refill [facility] [address] [facility] [place] [address] Rock Rodrigues MD Chronic pain syndrome 06/16/2024 Telephone [facility] [address] [place] [address] Magdalena Pena MA July Recalls 06/16/2024 Refill [facility] [address] [place] [address] Rock Rodrigues MD Chronic pain syndrome 06/16/2024 Refill [facility] [address] [place] [address] Rock Rodrigues MD Chronic pain syndrome 06/14/2024 Refill [facility] [address] [place] [address] Rock Rodrigues MD Chronic pain syndrome 06/14/2024 Refill [facility] [address] [place] [address] Rock Rodrigues MD Chronic pain syndrome 06/04/2024 Refill [facility] [address] [place] [address] Cheyenne Finnegan DO Insomnia, unspecified type; Hypophosphatemia 06/04/2024 Refill [facility] [address] [place] [address] Agnieszka Arvizu MD Insomnia, unspecified type 06/03/2024 Refill [facility] [address] [place] [address] Rock Rodrigues MD Hypophosphatemia 05/23/2024 Refill [facility] [address] [place] [address] Name, MD Rock Chronic pain syndrome (Primary Dx) 05/22/2024 Orders Only GENERIC EXTERNAL DATA DEPARTMENT Provider, Generic External Data 05/20/2024 Refill [facility] [address] [place] [address] Rock Rodrigues MD Chronic pain syndrome from Last 3 Months Immunizations Name Administration Dates Next Due INFLUENZA VACCINE QUADRIVALE NT RECOMBINANT PRESERVATIVE FREE RIV4 01/20/2020,02/09/2019 Influenza injectable quadriv alent preservative free 02/15/2023,01/07/2022,02/17/2021,01/15,01/28/2017,01/22/2016 Influenza, IIV3, injectable 01/07/2015,1 ,02/16/2013,01/10,01/24/2009 Novel [id number], preservative-free 04/03/2009 Pfizer Covid-19 Vaccine 12+ 03/29/2023 [...] Description 09/06/2024 3:30 PM EDT Office Visit [facility] [address] [place], [place] [phone] Name, MD Rock [address] [place] [address] Health Maintenance Due Date Last Done Comments CT Colonography 1960 FIT DNA/Cologuard 1960 FIT 1960 FOBT 1960 Sigmoidoscopy 1960 Hepatitis A Vaccines (1 of 2 - Risk 2-dose series) 01/02/1980 Hepatitis B Vaccines (1 of 3 - Risk 3-dose series) 2021 Alcohol/Substance Use Screening 11/15/2024 11/16/2023 Depression Screening 05/17/2025 05/17/2024, 05/17/19 25 SDOH Screening 05/17/2025 05/17/2024 Tobacco Screening 05/17/2025 05/17/2024 DTaP/Tdap/Td Vaccines (3 - Td or Tdap) 09/24/2025 09/25/2015, 10/02/2008 Mammogram 02/03/2026 02/04/2024, 12/26, 01/20/2022, Additional history exists Cervical Cancer Screening 01/07/2027 HPV/Cotest 01/07/2027 01/07/2022 Pap Smear 01/07/2027 01/07/2022 Lipid Panel 12/06/2028 12/07/2023, 06/08/2023, 06/29/2022, Additional history exists Colonoscopy 11/21/2033 11/22/2023, [...] Name Priority Date/Time Associated Diagnosis Comments POCT PAULETTE-14 URINE DRUG SCREEN Routine 07/28/2024 11:42 AM EDT Rib pain TSH Routine 07/03/2024 1:53 PM EDT T4, FREE Routine 07/03/2024 1:53 PM EDT US HEAD NECK SOFT TISSUE Routine 06/13/2024 5:29 PM EST T4, FREE Routine 05/22/2024 2:49 PM EST BI MAMMOGRAM SCREENING TOMOSYNTHESIS BILATERAL Routine 02/04/2024 [...] Recently Relevant to Health Maintenance Results * POCT PAULETTE-14 Urine Drug Screen (07/28/2024 11:42 AM EDT) THC Positive Cocaine Screen, Urine Negative Opiate Screen, Urine Negative Methamphetamine Screen Urine Negative Amphetamine Screen, Urine Negative Benzodiazepines Screen, Urine Negative Barbiturate Screen, Urine Negative Methadone Screen, Urine Negative Buprenophine Screen, Urine Negative TCA, Urine Negative MDMA Urine Negative ng/mL Oxycodone Screen, Urine Negative Phencyclidine (PCP), Urine Negative Propoxyphene, Urine Negative Fentanyl, Urine Negative QC Media Lot # [id number] Lot# Expiration Date 806 Urine Urine specimen obtained by clean catch procedure / Unknown 07/28/2024 11:42 AM EDT us Rock Name POINT OF CARE TEST ENTER/EDIT OR DERABLES Final Result * TSH (07/03/2024 1:53 PM EDT) Thyroid Stimulating Hormone 1.18 0.32 - 4.0 uIU/mL [facility] Comment:TSH 3rd Generation ( [facility]) 07/03/2024 1:53 PM EDT 07/03/2024 1:53 PM EDT us Generic External Data Provider LAB BLOOD ORDERAB LES Final Result Performing Organization Address City/[facility] de Phone Number [facility] [address] [place] [address] [phone] * T4, Free (07/03/2024 1:53 PM EDT) Only the most recent of2 resultswithin the time period is included. Free T4 (Free Thyroxine) 1.21 0.71 - 1.85 ng/dL [facility] 07/03/2024 1:53 PM EDT 07/03/2024 1:53 PM EDT us Generic External Data Provider LAB BLOOD ORDERAB LES Final Result Performing Organization Address [facility] de Phone Number [facility] [address] [place] [address] [phone] * US Head Neck Soft Tissue (06/13/2024 5:29 PM EST) Anatomical Region Laterality Modality Head, Neck Ultrasound 06/13/2024 5:29 PM EST Narrative 06/13/2024 5:31 PM EST ? [facility] ?[address] ?[place] [address] ? Ultrasound Report ? Signed ? Patient: Jayson,Coleen ?MR#: [id number] ? : 1960 ?Acct:[id number] ? Age/Sex: 64 / F ?ADM Date: 06/12/24 ? Loc: HO.US ? Attending Dr: Adeola Russ MD ? Ordering Physician: Adeola Russ MD ?? Date of Service: 06/12/24 ?? Procedure(s): US soft tiss head and/or neck ?? Accession Number(s): [id number] ? cc: Adeola Russ MD; Name,Rock DE [...] in OV> ? 06/13/24 1730 ? DD/ 28 ? TD/TT: 06/13/241728 ? Supervisor Quality Control: ? Procedure Note Orlando Rosa - 06/13/2024 [place] [address] Ultrasound Report Signed Patient: John Tyler#: [id number] : 1960cct:[id number] Age/Sex: 64 / FADM Date: 06/12/24 Loc: HO.US Attending Dr: Adeola Russ MD Ordering Physician: Adeola Russ MD Date of Service: 06/12/24 Procedure(s): US soft tiss head and/or neck Accession Number(s): [id number] cc: Adeola Russ MD; Name,Rock DE PAZ [...] Ruiz MD in OV> 06/13/24 1730 DD/ 1729 TD/TT: 06/13/24 1729 Supervisor Quality Control: [facility] External Provider IMG US PROCEDURES Edited Result - Final * BI Mammogram Screening Tomosynthesis Bilateral (02/04/2024 1:40 PM EDT) Anatomical Region Laterality Modality Breast Bilateral Mammography 02/04/2024 1:40 PM EDT Narrative 02/17/2024 9:45 PM EDT ? [facility] ? [address] ?[place] [address] ? Mammography Report ? Signed ? Patient: Jayson,Coleen ?MR#: [id number] ? : 1960 ?Acct:[id number] ? Age/Sex: 64 / F ?ADM Date: 10/11/24 ? Loc: HO.MAMMO ? Attending Dr: Rock Rodrigues MD ? Ordering Physician: Rock Rodrigues MD ?Results: 1Negative ? Date of Service: 02/04/24 ?Follow Up: 1 Year From Orig ?? inal Mammogram ? Procedure(s): MM tomosynthesis screening BI ?? Accession Number(s): [id number] ? cc: Ravi,Rock DE PAZ ? EXAMINATION: ?? MM SCREENING [...] ??Kristal Santos DO ??02/17/2024 09:42 PM EDT ?? RP ? Dictated By: ?Kristal Santos DO ? Signed By: ?<Electronically signed by Kristal Santos, DO in OV> ? 02/17/242 ? DD/ 1340 ? TD/TT: 02/04/24 1358 ? Supervisor Quality Control: ? Procedure Note Donotuseinterpreter, Image - 02/17/2024 [facility] [address] [place], [place] [address] Mammography Report Signed Patient: JaysonDianaMR#: [id number] : 1960cct:[id number] Age/Sex: 64 / FADM Date: 02/04/24 Loc: HO.MAMMO Attending Dr: Rock Rodrigues MD Ordering Physician: Rock Rodriguesesults: 1Negative Date of Service: 02/04/24Follow Up: 1 Year From Orig inal Mammogram Procedure(s): MM tomosynthesis screening BI Accession Number(s): [id number] cc: Rock Rodrigues MD EXAMINATION: MM SCREENING [...] 02/17/24 2142 DD/ 1340 TD/TT: 02/04/24 1358 Supervisor Quality Control: us Rock Name IMG BI PROCEDURES Edited Result - Final * (ABNORMAL) Lipid Panel, Standard (12/07/2023 11:55 AM EDT) Triglycerides 236(H) <150 mg/dL [facility] Comment:Desirable Triglyceri de: less than 150 mg/dLBorderline High Triglyceride 150-199 mg/dLHigh Triglyceride: 200-499 mg/dLVery High Triglyceride: greater than or equal to 5OO mg/dL Cholesterol 300(H) <200 mg/dL [facility] Comment:Desirable Cholestero l: less than 200 mg/dLBorderline High Cholesterol: 200-239 mg/dLHigh Cholesterol: greater than 239 mg/dL LDL Cholesterol Calculated 214(H) <100 mg/dL [facility] Comment:Desirable LDL: less than 100 mg/dLNear Optimal/Above Optimal LDL: 110- 129 mg/dLBorderline High LDL: 130-159 mg/dLHigh LDL: 160-189 mg/dLVery High LDL: greater than or equal to 190 mg/dL HDL Cholesterol 39(L) >40 mg/dL [facility] Comment:Desirable HDL: great er than 40 mg/dL Note: This HDL assay may give artificially low results in patients with liver disease. 12/07/2023 11:5 5 AM EDT 12/07/2023 11:55 AM EDT us Generic External Data Provider LAB BLOOD ORDERAB LES Final Result [facility] [address] [place] [address] [phone] * Colonoscopy (11/22/2023) Colonoscopy Normal Normal us Rock Rodrigues MD HEALTH MAINTENANCE Final Result * THINPREP TIS PAP AND HPV mRNA E6/E7 WITH REFLEX TO HPV 16,18/45 (01/07/2022 3:18 PM EDT) Clinical Information: None given [facility] COMMENT SEE COMMENT [facility] ON [...] has been evaluated with computer assisted technology. [facility] Circus Artist: SEE COMMENT [facility] Comment: VICTOR MANUEL SPAULDING(ASCP) CT screening location: [address] ??[address] HPV nRNA E6/E7 Not Detected Not Detected [facility] Comment: Methodology: Museum Service Scheduler-Mediated Amplification This assay detects E6/E7 viral messenger RNA (mRNA) from 14 high-risk HPV types (16,18,31,33,35,39,45,51,52,56,58,59,66,68). ? Cervical sources are required for HPV testing. If a vaginal source from a patient who has had a total hysterectomy with removal of cervix was ?? submitted, please contact the testing laboratory for alternative testing options. ?? For additional information, please refer to http://education.Getting-in/faq/FMA618f6 (This link if provided for information/ educational purposes only.) Interpretation/Res ult: SEE COMMENT [facility] Comment: Negative for intraepithelial lesion or malignancy. Atrophic pattern; predominantly parabasal cells LMP: MENOPAUSE X 48 [facility] Prev. BX: NONE GIVEN [facility] Prev. PAP: YES [facility] SOURCE: None given [facility] Statement Of Adequacy: SATISFACTORY FOR EVALUATION [facility] 01/07/2022 3:18 PM EDT us iTsha Venegas CNM LAB PATHOLOGY ORDERABLES Final Result [facility] [address] [place] [address], * HEPATITIS C AB W/REFL TO HCV RNA, QN, PCR (12/23/2021 2:35 PM EDT) HEPATITIS C ANTIBODY NON-REACT MARK NON-REACT MARK [facility] INDEX 0.12 <1.00 [facility] Comment: ?? HCV antibody was non-reactive. There is no laboratory ?? evidence of HCV infection. ?? In most cases, no further action is required. However, if recent HCV exposure is suspected, a test for HCV RNA (test code 80099) is suggested. ?? For additional information please refer to http://Qwbcg.Getting-in/faq/BPV54c8 (This link is being provided for informational/ educational purposes only.) ?? 12/23/2021 2:35 PM EDT us Rock Name HISTORICAL/NON ORDERABLE LABS Fi nal Result [facility] [address] [place] [address], * HIV 1/2 ANTIGEN/ANTIBODY,FOURTH GENERATION W/RFL (02/17/2021 3:50 PM EDT) Pathologist [facility] HIV-1/2 ANTIGEN AND ANTIBODIES, 4TH GENERATION W/ REFLEX NON-REACT MARK NON-REACT MARK [facility] Comment: HIV-1 antigen and HIV-1/HIV-2 [...] ? For additional information please refer to http://Qwbcg.Getting-in/faq/IYI549 (This link is being provided for informational/ educational purposes only.) ? The performance of this assay has not been clinically validated in patients less than 2 years old. ?? 02/17/2021 3:50 PM EDT us Rock Rodrigues MD LAB BLOOD ORDERABLES Final Resul t [facility] [address] [place] [address], from Last 3 Months or Most Recently Relevant to Health Maintenance Insurance [place] [id number] [facility] STANDARD [employer] MEDICARE REPLACEMENT Care Teams [employer] Gatherer Relationship Specialty Start Date End Date Name, MD Rock [address] [place] [phone] PCP - General Family Medicine 07/04/15
[2024-08-21 12:57] LABS: N-Telopeptide 8 (see note); NTXCreaRU 44 mg/dL (20-275)
== END 2024-08-16 15:04 | disposition home or self-care (01) ==
LOC: HO.LNP 15:03
PROVIDERS: Visit Provider Internal Medicine Endocrinology, Diabetes & Metabolism
DX: M81.0 Age-related osteoporosis without current pathological fracture (principal)
CPT/HCPCS: 82523

== ENCOUNTER 2024-09-06 14:41 | Outpatient (AMB) | payer MEDICARE, MEDICAID, SELFPAY ==
--- NOTE | 2024-09-06 14:43 | A.OFFVIS_ITS ---
Vital Signs 09/06/24 14:44 Height 5 ft 7 in Weight 186 lb 1.122 oz BMI 29.1 BP 102/62 Blood Pressure Location Rt brachial Position Sitting Pulse 59 Pulse Source Pulse Oximeter Intake Visit Reasons: Osteoporosis Intake Note: Patient present today for Osteoporosis follow up. Paper Twister Required: No Accompanied by: Self / Same As Patient Allergies pravastatin Allergy (Severe, Verified 09/06/24 14:49) Blister Sulfa (Sulfonamide Antibiotics) Allergy (Severe, Verified 09/06/24 14:49) Itching Medication List - Last Reconciled 09/06/24 by Oz Perez MD acetaminophen (Tylenol Extra Strength) 1,000 mg PO DAILY PRN albuterol sulfate 90 mcg/actuation 2 puffs PO Q4-6H PRN bisacodyl (Dulcolax (bisacodyl)) 10 mg (2 x 5 mg) PO BEDTIME buspirone 30 mg PO BID carisoprodol 350 mg PO QID diclofenac sodium 1% 1 ea topical BID PRN docusate sodium (Castaneda' Liqui-Gels) 100 mg PO BEDTIME ezetimibe 10 mg PO DAILY fluticasone propionate 50 mcg/actuation 1 spray intranasal DAILY hydrochlorothiazide 12.5 mg PO DAILY levothyroxine 112 mcg PO DAILY loratadine 10 mg PO DAILY ondansetron HCl 4 mg PO Q6H PRN oxcarbazepine 150 mg PO BID sucralfate 1 g PO BEDTIME tramadol 50 mg PO DAILY PRN venlafaxine ER 75 mg PO BEDTIME venlafaxine ER 150 mg PO BEDTIME zoledronic [id number]-[id number] 5 mg/100 mL (Reclast) ea IV zolpidem 10 mg PO BEDTIME PRN HPI Comments Details: 64 YO Female with a PMHx of thyroid cancer s/p total thyroidectomy who is seen in F/U for a history of thyroid cancer and Osteoporosis. Today's visit focus on the osteoporosis ) Osteoporosis: First diagnosed in 2014. She has never been treated in the past. Has 0-1 servings of dietary calcium per day. Takes 2 Tums per day which contains Calcium. Takes 1000 IU of Vitamin D daily. Denies ever using anticoagulant, antiepileptic or regular glucocorticoid medication. Currently does not exercise. Fracture history: Traumatic fracture of her L leg in 2014. 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 Menses always regular. . Breastfed for less than 6 months total. Menopause age 50, was induced by Lupron. Has a history of recurrent nephrolithiasis but is unsure what type of stones. Reports a family history of Osteoporosis but no hip fracture. UTD on dental cleanings and sees dentist every 6 months. No planned upcoming dental work or extractions. DXA: 01/20/2022 FINDINGS: AP SPINE L2-L3 (excluding L1 and L4):? The data of L1-L4 has been changed to exclude the L3 and L4 vertebral bodies because mild degenerative changes at these levels may cause overestimation of the lumbar spine density.? BMD 0.816 g/cm2, Z-score minus 3.1, T-score -3.2, osteoporosis. LEFT FEMUR, NECK: BMD 0.920 g/cm2, Z-score -0.3, T-score -0.9, normal. LEFT FEMUR, TOTAL: BMD 1.013 g/cm2, Z-score 0.2, T-score 0.0, normal. US Head and Neck: 01/14/2021 FINDINGS: Lymph nodes of normal size, morphology and echotexture are detected within the right and left neck. No lymphadenopathy. Within the right neck, the largest lymph nodes are 0.4 cm short axis dimension at level 1B and level 5B In the left neck, one of the largest lymph nodes is 0.3 cm short axis dimension at level 5B. No soft tissue mass or fluid collection. IMPRESSION: Normal lymph nodes are seen within the neck in this patient who has previously undergone thyroidectomy. There is no sonographic evidence of lymphadenopathy. Labs: Laboratory Tests 05/04/22 09/29/22 09/29/22 14:30 12:05 12:05 Creatinine 0.68 Estimated GFR > 60 Calcium 9.3 Phosphorus 2.5 L Albumin 4.1 PEP Interpretation SEE NOTE N-Telopeptide X-linked 25-OH Vitamin D Total 32.2 TSH 3.07 Free T4 1.04 Thyroglobulin PTH Intact 66 Calcium (PTH Intact) 9.0 Thyroglobulin Antibody 09/29/22 10/19/22 12:05 09:04 Creatinine Estimated GFR Calcium Phosphorus Albumin PEP Interpretation N-Telopeptide X-linked 63 25-OH Vitamin D Total TSH Free T4 Thyroglobulin <0.1 PTH Intact Calcium (PTH Intact) Thyroglobulin Antibody <1 Took alendronate but stopped 2 after taking 3-4 mos because of joint pains , Tibia fx in distant past . Recent DEXA showed showed dramatic increases in bone density as outlined below. Received 11 mos of Evenity last dose to be given this month followed by a dose of Reclast next month FINDINGS: LEFT FEMUR, NECK: Current: BMD 0.884 g/cm2, Z-score -0.2, T-score -1.1, osteopenia. Baseline: BMD 0.920 g/cm2. LEFT FEMUR, TOTAL: Current: BMD 0.984 g/cm2, Z-score 0.4, T-score -0.2, normal, 2.9% decrease from baseline (<5% change is not significant). Baseline: BMD 1.013 g/cm2. AP SPINE L1-L4: Current: BMD 1.188 g/cm2, Z-score 0.8, T-score 0.1, normal, 34.2% increase from baseline (<5% change is not significant). Baseline: BMD 0.885 g/cm2. IDENTIFIED RISK FACTORS: Menopause, history of fracture (adult), anticonvulsant, osteoporosis, recurrent falls, rheumatoid arthritis, right oophorectomy, secondary osteoporosis (partial gastrectomy). HISTORY OF FRACTURE: Fibula. MEDICATIONS: Calcium, vitamin D, bisphosphonate. MM/XR DEXA axial skeleton IMPRESSION: 1. DIAGNOSIS: Osteopenia based on the lowest T-score value of -1.1 in the femoral neck applying World Health Organization criteria. Took a course of Evenity follow up by Reclast. Urine NTX is suppressed COUNT INCLUDES THE [facility] Medical History (Updated 05/22/24 @ 13:54 by Adeola Russ MD) Pre-op evaluation BMI 33.0-33.9,adult Steatosis, liver GERD (gastroesophageal reflux disease) Kidney stones Seizures Anxiety Depression Hyperlipidemia Osteoporosis Renal calculi Vitamin D deficiency History of thyroid cancer Hypothyroidism Chronic back pain Insomnia Diarrhea Osteoarthritis Anxiety and depression C. difficile colitis Asthma Hernia Surgical History History of repair of hiatal hernia S/P gastric sleeve procedure H/O LEEP H/O lithotripsy History of hernia surgery H/O adenoidectomy History of tonsillectomy S/P panniculectomy H/O tubal ligation History of appendectomy H/O thyroidectomy Family History Mother Graves disease Social History Household Members: Family Housing: House Do you presently have visiting nurse or other home services: No Patient Tobacco Use Status: Former Tobacco user Cigarettes Per Day: 2 Years Smoked: 10 years service: No Current occupational status: unemployed Female Reproductive History Menstrual Age of Menarche: 14 Physical Exam Vital Signs: Last Vital Signs Pulse 59 09/06/24 14:44 BP 102/62 09/06/24 14:44 BMI result Body Mass Index 29.1 Assessment & Plan Assessment & Plan (1) Osteoporosis: Code(s): M81.0 - Age-related osteoporosis without current pathological fracture Category: Medical Plan: History of osteoporosis with negative secondary workup. Currently on calcium and vitamin-D supplementation as well as evenity completing course. Urine NTX is suppressed. Recent DEXA showed very large increases in bone density into the mild osteopenic range after receiving several months of Evenity. Received a dose of Reclast with urine NTX suppressed Plan is to continue calcium and vitamin-D supplementation. We will check urine NTX in 6 months' time and follow up Orders: Orders Collagen Crosslinks NTX 6 Months M81.0 - Age-related osteoporosis without current pathological fracture Coding Level of Care Code Est Pt Level 3 (71553) Diagnoses Osteoporosis M81.0
[2024-09-06 14:44] VITALS: BP 102/62; PULSE 59; BMI 29.1
--- OUTSIDE RECORDS SUMMARY | 2024-09-06 14:44 | XMS_ITS | Data Portability ---
Author Organization [place] - [facility], [facility], [facility] Address [address] [place] [id number] Care Team Providers Care Automobile Rental Agent Name Role Phone RITA MICHEL Referring Provider [phone] Assessment No assessment recorded. Plan of Treatment Reminders Order Date Submit Date Provider Last Modified By Organization Details Last Modified Time Details Appointments None recorded. Lab None recorded. Referral None recorded. Procedures None recorded. Surgeries None recorded. Imaging None recorded. Medication Orders Augmentin 875 mg-125 mg tablet 2020 021 [id number], [address] [place], [address], 11:35:58 tramadol 50 mg tablet 2020 021 [id number], [address] [place], [address], 11:40:00 Patient TargetsNo targets recorded. Patient Instructions Encounter Date Encounter Id Patient Instructions Last Modified By Organization Details Last Modified Time 09/11/2020 [id number] Follow-up with PCP, or if can't get in with PCP, at the walk-in if no better or ER if any worse, or any red flag symptoms. Patient voiced understanding and agreement with treatment plan. [email or web address] Not available 09/11/2020 16:39:46 Reason for Referral None Reported. Problems Name Problem SNOMED Code Status Onset Date Resolution Date Notes Provider Name and Address Organization Details Recorded Time Hypercholes terolemia 45510557 Active 2020 Elissa clements [place] - [facility], [facility] 10:58:44 Insomnia 521259479 [facility] 11:06:37 Depressive disorder 85736149 Active 2020 Elissa clements [facility], [facility] 11:06:55 Anxiety 17219974 Active 2020 Elissa clements [facility], [facility] 11:07:11 Hyperthyroi dism 25337002 [facility] 2020 [facility] 11:07:58 Carcinoma of thyroid 292705519 [facility] 2020 [facility] 11:08:23 Acid reflux 307376405 Active 2020 [facility] 11:08:33 Gastroesoph ageal reflux disease 775509838 [facility] 2020 [facility] 11:09:08 History of back pain 8651965058922 02 [facility] Problem Notes None recorded. Medical Equipment None Reported. Allergies Allergen ID Allergen Name Allergen Category Reaction Reaction Severity Criticality Documentation Date Start Date Code Code System Note Provider Name and Address Organization Details Recorded Time 938307 Product containin g 3-hydroxy -3-methyl glutaryl- coenzyme A reductase inhibitor (product) medicatio n anaphylax is itching rash Not available Not available Not available Not available 09/11/2020 36351 009 [facility]ED [facility] 10:49:15 048729 Substance with sulfonami de structure and antibacte rial mechanism of action (substanc e) medicatio n itching rash Not available Not available Not available 09/11/2020 82479 8003 SN[facility]ED [facility] 10:49:15 Medications Name Sig Start Date [...] and Address Organization Details Last Updated DateTime 956224. 09 g 39.2 kg/m2 170.18 cm 96.8 [degF] 82 /min 98 % 98 % 17 /min 124 mm[Hg] 80 mm[Hg] Elissa Loredo [facility] Physician [facility], [facility] 10:55:03 Social History Question Answer Notes LastModified by Organizat ion Details LastModified Time Tobacco Smoking Status Former Smoker Elissa clements [facility], [facility] 09/11/2020 10:49:15 How Much Tobacco Do You Chew? None [email or web address] Information not available 09/11/2020 Marital Status [email or web address] Informatio n not available 09/11/2020 How Much Tobacco Do You Smoke? No [email or web address] Information not available 09/11/2020 Sex: Unknown Functional Status Question Answer Note LastModified by Organizat ion Details LastModified Time Do you or have you ever used smokeless tobacco? Never used smokeless tobacco [email or web address] Information not available 09/11/2020 Do you or have you ever used e-cigarettes or vape? Never used electronic cigarettes [email or web address] Information not available 09/11/2020 Mental Status None recorded. Family History Relationship Description Onset Age of this Age Resolved Age Notes LastModified by Organization Details LastModified Time Unspecified Relation Family history of malignant neoplasm [email or web address] Not available 09/11 10:59:06 Medical History Condition [...] SNOMED-CT Code Diagnosis ICD10 Code Diagnosis Note [id number] NIKOLAI Gaitan [facility] [place] [facility] [address] [place] [address] 09/11/2020 10:30:20 09/11/2020 11:53:48 Acute periodontal abscess [id number] K05.219 Acute. Initial Encounter. Not controlled . Will add Augmentin 875-125 BID x 10 days. (No CKD per pt) Continue Clindamyci n as directed. She is taking probiotics already. Discussed new medication , possible side effects, and risk of CDiff with Clinda as well as other abx. Tramadol offers good pain control. I will send refill until she can f/u with PCP up [place]. She is encouraged to see a dentist in [place] prior to flying back next week. She will call Dr. Melo who she has seen previously . She may need to have this drained. Soft foods only. Tylenol/Mo addis for pain prn. every 6 hours. ER for acute changes Chronic back pain 039698 002 G89.29 Chronic, controlled with Tramadol, stable F/U with PCP up [facility] Concerns Section Related Observation LastModified by Organization Detai ls LastModified Time None Recorded Concern Status LastModified by Organization Details LastModified Time None Recorded Advance Directives Directive None Recorded Payers Insurance Date Sequence Insurance Name Policy Number Policy Walls Covered Member ID Walls Member ID Guarantor Name 11/11/2020 2 [place]: [facility] Coleen Polo 1 1 Coleen Polo 05/17/2021 1 [place] Coleen Polo [id number] Coleen Polo Notes Date Note Type [...] have you received? 2 doses Imported from [employer] on 09/11/2020 60yo F c/o left lower [...] an appointment to see a dentist in [place]. She denies fever/chills or other symptoms. Jennie Williamson MD [address] [address], [place], [address], [facility] - [facility], [facility] 09/11/2020 21:53:38 OBGyn Episode No OBEpisode recorded.
== END 2024-09-06 15:00 | disposition home or self-care (01) ==
LOC: HO.ENCR 14:42
PROVIDERS: PCP Internal Medicine Geriatric Medicine; Visit Provider Internal Medicine Endocrinology, Diabetes & Metabolism
DX: M81.0 Age-related osteoporosis without current pathological fracture (principal)
CPT/HCPCS: 99213

== ENCOUNTER → 2024-09-06 14:41 | Outpatient (BNVA) | payer MEDICARE, MEDICAID, SELFPAY | PROVIDERS: PCP Internal Medicine Geriatric Medicine; Visit Provider Internal Medicine Endocrinology, Diabetes & Metabolism | DX: M81.0 Age-related osteoporosis without current pathological fracture (principal) | CPT/HCPCS: 99212 ==

== ENCOUNTER 2024-12-06 14:52 | Outpatient (AMB) | payer MEDICARE, MEDICAID, SELFPAY ==
--- OUTSIDE RECORDS SUMMARY | 2024-12-06 15:00 | XMS_ITS | Encounter Summary ---
Author Organization [employer] Address [address] [place] [address] Care Team Providers Care Software Sales Consultant Name Role Phone Name, Rock DE PAZ Primary Care Provider [phone] Encounter Details Date Type Department Care Team (Late st Contact Info) Description 05/06/2022 Orders Only [facility] [address] [place] [phone] Karen Falk LPN Social History Tobacco Use [...] Care Team (Late st Contact Info) Description 12/12/2024 1:00 PM EDT Clinical Support [address] [id number] Corrie Chen RN 2025 2:30 PM EDT Office Visit [address] [phone] Name, MD Rock [address] [place] [address] [phone] documented as of this encounter Visit Diagnoses Not on filedocumented in this encounter Care Teams Software Sales Consultant Relationship Specialty Start Date End Date Name, MD Rock [address] [place] [address] PCP - General Family Medicine 07/04/15 documented as of this encounter
--- NOTE | 2024-12-06 15:13 | A.OFFVIS_ITS ---
Vital Signs 12/06/24 15:15 Height 5 ft 7 in Weight 188 lb 9.561 oz BMI 29.5 BP 106/78 Blood Pressure Location Lt brachial Position Sitting Pulse 65 Intake Visit Reasons: nausea Intake Note: Coleen presents in the office as a follow up for nausea. CC: Allergies pravastatin Allergy (Severe, Verified 12/06/24 15:18) Blister Sulfa (Sulfonamide Antibiotics) Allergy (Severe, Verified 12/06/24 15:18) Itching HPI HPI nausea: Details: LAST VISIT: Paraesophageal hernia Constipation GERD (gastroesophageal reflux disease) Postprandial epigastric pain Plan Continue avoiding dietary triggers, follow bariatric surgeon's recommendation for amount and frequency of meals. Omeprazole in the morning before breakfast. Staying upright for minimum 3 hours after meals discussed with patient. Sucralfate at bedtime. Zofran on as needed basis. Follow-up in the office as scheduled. She will keep her existing appointment, however patient was encouraged to call the office if she will continue to have GI concerning symptoms. She is agreeable to this plan and verbalizes understanding of instructions. She was given the opportunity to ask questions and all questions answered. ? Thank you for allowing me to participate in her care Orders Phosphorus 10/26/23 E83.39 Changed Changed From omeprazole 40 mg PO BID Changed To omeprazole 40 mg PO DAILY 30 caps 0RF Refilled ondansetron 4 mg PO Q8H PRN 14 tabs 0RF nausea and vomiting COLONOSCOPY Findings: Terminal Ileum-normal Cecum:normal Ascending Colon: normal Transverse Colon -normal Descending Colon:normal Sigmoid Colon: mild to moderate diverticulosis Rectum: Retroflexion with small internal hemorrhoids seen, grade I Anorectum - normal Intervention: none Colon preparation: Union Bowel Preparation Scale Right colon; 2 Transverse colon: 2 Left colon; 2 (0 = Unprepared colon segment with mucosa not seen due to solid stool that cannot be cleared. 1 = Portion of mucosa of the colon segment seen, but other areas of the colon segment not well seen due to staining, residual stool and/or opaque liquid. 2 = Minor amount of residual staining, small fragments of stool and/or opaque liquid, but mucosa of colon segment seen well. 3 = Entire mucosa of colon segment seen well with no residual staining, small fragments of stool or opaque liquid) Impression and Post Procedure Diagnosis: diverticulosis internal hemorrhoids Plan: High fiber diet leaflet Avoid straining at stool, epsom salts and sitz bath, anusol supps or cream Repeat Colonoscopy in 10 years or earlier if clinically indicated TODAY'S VISIT: Patient is here today for requested visit. Patient had paraesophageal surgery repaired last year. Colonoscopy in October of 2023 was normal. No polyps found. Diverticulosis and internal hemorrhoids found. Patient reports that back in June she had bad episode of nausea with projectile vomiting after eating turkey chili. Patient since then has been experiencing severe GERD and nausea if she lays down after eating. Patient started taking her sucralfate, she is taking omeprazole every morning. Acid reflux is suppressed, however even if she lays down 2-3 hours after eating during the day she will have acid reflux and epigastric discomfort. Patient reports that she is moving her bowels better now take 1 Dulcolax tablets and has 1-2 bowel movements daily. Patient denies melena, hematochezia, unintentional weight loss or ribbon like stools. [facility] Medical History (Updated 12/06/24 @ 15:55 by Lisa Salas [facility]) Pre-op evaluation BMI 33.0-33.9,adult Steatosis, liver GERD (gastroesophageal reflux disease) Kidney stones Seizures Anxiety Depression Hyperlipidemia Osteoporosis Renal calculi Vitamin D deficiency History of thyroid cancer Hypothyroidism Chronic back pain Insomnia Diarrhea Osteoarthritis Anxiety and depression C. difficile colitis Asthma Hernia Surgical History (Updated 12/06/24 @ 15:18 by MILKA Munoz) Hx of colonoscopy History of esophagogastroduodenoscopy (EGD) History of repair of hiatal hernia S/P gastric sleeve procedure H/O LEEP H/O lithotripsy History of hernia surgery H/O adenoidectomy History of tonsillectomy S/P panniculectomy H/O tubal ligation History of appendectomy H/O thyroidectomy Family History Mother Graves disease Social History Household Members: Family Housing: House Do you presently have visiting nurse or other home services: No Patient Tobacco Use Status: Former Tobacco user Cigarettes Per Day: 2 Years Smoked: 10 years service: No Current occupational status: unemployed Female Reproductive History Menstrual Age of Menarche: 14 Review of Systems Const Denies weight gain and Denies weight loss ENT Reports no additional complaints, Denies dysphagia and Denies odynophagia Card Reports no additional complaints Resp Reports no additional complaints GI Reports abdominal pain (Epigastric), Denies belching, Denies melena, Reports bloating, Denies change in bowel habits, Reports constipation, Denies dysphagia, Denies excessive flatus, Denies dyspepsia, Reports heartburn, Denies diarrhea, Denies loose stools, Reports nausea, Denies odynophagia and Denies vomiting Reports no additional complaints Musc Reports no additional complaints Neuro Reports no additional complaints Psych Reports no additional complaints Endo Reports no additional complaints Physical Exam Vital Signs: Last Vital Signs Pulse 65 12/06/24 15:15 BP 106/78 12/06/24 15:15 BMI result Body Mass Index 29.5 Const General: healthy appearing and no acute distress Nutritional Appearance: well nourished and obese Orientation/consciousness: patient oriented x3 Resp Effort & Inspection: normal respiratory effort, able to speak in complete sentences, no tracheal deviation and symmetric chest movement Auscultation: clear to auscultation bilaterally Cardio Rate: regular rate GI Inspection: No distended and Yes obesity Palpation (GI): Soft to palpation, not firm, nontender and No hepatosplenomegaly present Auscultation: normal bowel sounds General: Yes no CVA tenderness Back/Spine/Pelvis Back: no CVA tenderness Skin General skin exam: elasticity normal, turgor normal and dry skin Neuro General: patient oriented x3 Psych Appearance: grossly normal Mental Status: mental status grossly normal Assessment & Plan Assessment & Plan (1) GERD (gastroesophageal reflux disease): Code(s): K21.9 - Gastro-esophageal reflux disease without esophagitis Category: Medical Qualifiers: Esophagitis presence: esophagitis presence not specified Qualified Code(s): K21.9 - Gastro-esophageal reflux disease without esophagitis (2) Status post repair of paraesophageal diaphragmatic hernia: Code(s): Z98.890 - Other specified postprocedural states; Z87.19 - Personal history of other diseases of the digestive system Category: Surgical (3) Steatosis, liver: Code(s): K76.0 - Fatty (change of) liver, not elsewhere classified Category: Medical (4) Constipation: Code(s): K59.00 - Constipation, unspecified Qualifiers: Constipation type: slow transit constipation Qualified Code(s): K59.01 - Slow transit constipation (5) Nausea: Code(s): R11.0 - Nausea Plan Patient will continue omeprazole in the morning. May take sucralfate at bedtime . Avoid dietary triggers and late night snacking. Staying upright for minimum 3 hours after meals discussed with patient. Patient will be sent for upper GI with barium swallow to evaluate for hernia. Continue taking Dulcolax daily. Increase fluid intake and activity to promote better bowel motility. Patient will follow-up in the office in 3 months, sooner on as needed basis. She is agreeable to this plan and verbalizes understanding of instructions. She was given the opportunity to ask questions and all questions answered. Thank you for allowing me to participate in her care Orders: Orders [place] upper GI w Ba Swallow Today K21.9 - Gastro-esophageal reflux disease without esophagitis Medications: Refilled ondansetron HCl 4 mg PO Q6H PRN 20 tabs 0RF for nausea/vomiting sucralfate 1 g PO BEDTIME 30 tabs 1RF R19.7 - Diarrhea, unspecified Coding Level of Care Code Est Pt Level 4 (84663) Complex EM visit Add On G2211 Diagnoses Gastroesophageal reflux disease, unspecified whether esophagitis present K21.9 Esophagitis presence: esophagitis presence not specified Status post repair of paraesophageal diaphragmatic hernia Z98.890; Z87.19 Steatosis, liver K76.0 Slow transit constipation K59.01 Constipation type: slow transit constipation Nausea R11.0 Time Spent (min) 40 Comment 25 minutes spent with patient and additional 15 minutes spent reviewing her records
[2024-12-06 15:15] VITALS: BP 106/78; PULSE 65; BMI 29.5
== END 2024-12-06 15:44 | disposition home or self-care (01) ==
LOC: HO.HGI 14:52
PROVIDERS: PCP Internal Medicine Geriatric Medicine; Visit Provider Nurse Practitioner Family
DX: K21.9 Gastro-esophageal reflux disease without esophagitis (principal); Z98.890 Other specified postprocedural states; Z87.19 Personal history of other diseases of the digestive system; K76.0 Fatty (change of) liver, not elsewhere classified; K59.01 Slow transit constipation; R11.0 Nausea
CPT/HCPCS: 99214; G2211

== ENCOUNTER → 2024-12-06 14:52 | Outpatient (BNVA) | payer MEDICARE, MEDICAID, SELFPAY | PROVIDERS: PCP Internal Medicine Geriatric Medicine; Visit Provider Nurse Practitioner Family | DX: K21.9 Gastro-esophageal reflux disease without esophagitis (principal); K59.01 Slow transit constipation; K76.0 Fatty (change of) liver, not elsewhere classified; Z98.890 Other specified postprocedural states; Z87.19 Personal history of other diseases of the digestive system | CPT/HCPCS: 99212 ==

== ENCOUNTER 2024-12-12 13:00 | Outpatient (REF) | payer MEDICARE, MEDICAID, SELFPAY ==
--- OUTSIDE RECORDS SUMMARY | 2024-12-12 17:54 | XMS_ITS | Encounter Summary ---
Author Organization [employer] Address [address] [place] [address] Care Team Providers Care Outboard Motor Tester Name Role Phone Name, Rock DE PAZ Primary Care Provider [phone] Encounter Details Date Type Department Care Team (Late st Contact Info) Description 05/06/2022 Orders Only [address] [address] Karen Falk LPN Social History Tobacco Use [...] Care Team (Late st Contact Info) Description 2025 2:30 PM EDT Office Visit [address] [phone] Name, MD Rock [address] [place] [phone] 03/13/2025 1:00 PM EST Clinical Support [address] [address] Corrie Chen, RN documented as of this encounter Visit Diagnoses Not on filedocumented in this encounter Care Teams Outboard Motor Tester Relationship Specialty Start Date End Date Name, MD Rock [address] [place] [address] PCP - General Family Medicine 07/04/15 documented as of this encounter
== END 2024-12-12 13:01 | disposition home or self-care (01) ==
LOC: HO.HHCLNP 13:00
PROVIDERS: Visit Provider Internal Medicine Geriatric Medicine
DX: Z79.891 Long term (current) use of opiate analgesic (principal)
CPT/HCPCS: 80307

== ENCOUNTER 2025-01-01 12:15 | Outpatient (REF) | payer MEDICARE, MEDICAID, SELFPAY ==
[2025-01-01 12:41] LABS: MANUAL DIFF FLAG NO
[2025-01-01 13:54] LABS: Hematocrit 40.2 % (37.0-47.0); Hemoglobin 13.7 g/dl (12.0-16.0); Imm Gran Abs Auto 0.02 X10*3/uL (0.00-0.03); Imm Gran Pct Auto 0.4 % (0.0-0.4); Lymphocytes Absolute Auto 2.4 X10*3/uL (1.2-4.9); Mean Corpuscular HGB Conc 34.1 g/dl (31.0-35.0); Mean Corpuscular Hemoglobin 30.9 pg (27.0-33.0); Mean Corpuscular Volume 90.7 fL (80.0-98.0); NRBC Abs Auto 0.000 X10*3/uL (0.0-0.012); NRBC Pct Auto 0.0 /100WBC (0.0-0.2); Platelet Count 270 X10*3/uL (160-400); Red Blood Count 4.43 X10*6/uL (4.20-5.50); White Blood Count 5.6 X10*3/uL (4.8-10.8)
[2025-01-01 14:21] LABS: Parathyroid Hormone Intact 58.8 pg/mL (8.7-77.1)
[2025-01-01 14:34] LABS: Alanine Aminotransferase 23 U/L (0-31); Albumin Level 4.4 g/dL (3.5-5.0); Alkaline Phosphatase 51 U/L (39-117); Anion Gap 14 (12-20); Aspartate Amino Transferase 24 U/L (5-31); Blood Urea Nitrogen 13 mg/dL (9-16); Calcium 9.1 mg/dL (8.4-10.2); Carbon Dioxide 25 mmol/L (22-29); Chloride 108 mmol/L (96-108); Estimated Glomerular Filt Rate > 60; Iron 213 mcg/dL (30-160); Percent Iron Saturation 54 % (15-50); Potassium 4.9 mmol/L (3.3-5.1); Sodium 142 mmol/L (135-145); Total Iron Binding Capacity 394 mcg/dL (228-428); Total Protein 7.2 g/dL (6.5-8.0); Unsaturated Iron Binding 181 ug/dL
--- OUTSIDE RECORDS SUMMARY | 2025-01-01 14:37 | XMS_ITS | Encounter Summary ---
Author Organization [employer] Address [address] [place] [address] Care Team Providers Care Government Services Professional Name Role Phone Name, Rock DE PAZ Primary Care Provider [phone] Reason for Visit * Reason Onset Date Comments Med Refill 06/16/2024 Encounter Details Date Type Department Care Team (Late st Contact Info) Description 06/16/2024 Refill [facility] MED[facility]INE [address] [place], [place] [phone] Name, MD Rock [address] [place] [address] Chronic pain syndrome Social History Tobacco Use [...] Care Team (Late st Contact Info) Description 03/13/2025 1:00 PM EST Clinical Support [facility] [address] [place] [address] Corrie Chen, SCOUT documented as of this encounter Visit Diagnoses Diagnosis Chronic pain syndrome documented in this encounter Additional Health Concerns Assessment Noted Time PHQ-9 Depression Total Score: 17 025 2:50 PM EST documented as of this encounter Care Teams Government Services Professional Relationship Specialty Start Date End Date Name, MD Rock [address] [place] [address] PCP - General Family Medicine 07/04/15 documented as of this encounter
--- OUTSIDE RECORDS SUMMARY | 2025-01-01 14:37 | XMS_ITS | Encounter Summary ---
Author Organization [employer] Address [address] [place] [address] Care Team Providers Care Binding Cementer French Cord Name Role Phone Name, Rock DE PAZ Primary Care Provider [phone] Reason for Visit * Reason Onset Date Comments Med Refill 06/14/2024 Encounter Details Date Type Department Care Team (Late st Contact Info) Description 06/14/2024 Refill [facility] MED[facility]INE 230 [place], [place] [phone] Name, MD Rock [address] [place] [address] Chronic pain syndrome Social History Tobacco Use [...] Description 03/13/2025 1:00 PM EST Clinical Support [facility] [address] [place] [address] Corrie Chen, SCOUT documented as of this encounter Visit Diagnoses Diagnosis Chronic pain syndrome documented in this encounter Additional Health Concerns Assessment Noted Time PHQ-9 Depression Total Score: 17 025 2:50 PM EST documented as of this encounter Care Teams Binding Cementer French Cord Relationship Specialty Start Date End Date Name, MD Rock [address] [place] [address] PCP - General Family Medicine 07/04/15 documented as of this encounter
--- OUTSIDE RECORDS SUMMARY | 2025-01-01 14:37 | XMS_ITS | Encounter Summary ---
Author Organization [employer] Address [address] [place] [address] Care Team Providers Care Operations Team Leader Name Role Phone Name, Rock DE PAZ Primary Care Provider [phone] Reason for Visit * Reason Onset Date Comments Med Refill 10/23/2024 Encounter Details Date Type Department Care Team (Late st Contact Info) Description 10/23/2024 Refill [facility] MEDICINE 230 [place], [place] [phone] Name, MD Rock [address] [place] [address] Insomnia, unspecified type Social History Tobacco Use [...] Description 03/13/2025 1:00 PM EST Clinical Support [facility] [address] [place] [address] Corrie Chen, SCOUT documented as of this encounter Visit Diagnoses Diagnosis Insomnia, unspecified type documented in this encounter Additional Health Concerns Assessment Noted Time PHQ-9 Depression Total Score: 17 025 2:50 PM EST documented as of this encounter Care Teams Operations Team Leader Relationship Specialty Start Date End Date Name, MD Rock [address] [place] [address] PCP - General Family Medicine 07/04/15 documented as of this encounter
--- OUTSIDE RECORDS SUMMARY | 2025-01-01 14:37 | XMS_ITS | Encounter Summary ---
Author Organization [employer] Address [address] [place] [address] Care Team Providers Care Spanish Interpreter/Translator Name Role Phone Name, Rock DE PAZ Primary Care Provider [phone] Encounter Details Date Type Department Care Team ([facility] Contact Info) Description 09/14/2022 Abstract [facility] MEDICINE [address] [place] [phone] Name, MD Rock [address] [place] [address] Social History Tobacco Use Types Packs/Day Years [...] Department Care Team (Late Contact Info) Description 03/13/2025 1:00 PM EST Clinical Support [address] [address] April, Corrie, RN documented as of this encounter Procedures [...] on filedocumented in this encounter Care Teams Spanish Interpreter/Translator Relationship Specialty Start Date End Date Name, MD Rock 230 [place] [address] PCP - General Family Medicine 07/04/15 documented as of this encounter
--- OUTSIDE RECORDS SUMMARY | 2025-01-01 14:37 | XMS_ITS | Encounter Summary ---
Author Organization [employer] Address [address] [place] [address] Care Team Providers Care Electric Stop Installer Name Role Phone Name, Rock DE PAZ Primary Care Provider [phone] Reason for Visit * Reason Onset Date Comments Med Refill 11/26/2024 Encounter Details Date Type Department Care Team (Late st Contact Info) Description 11/26/2024 Refill [facility] MEDICINE [address] [place], [place] [phone] Name, MD Rock [address] [place] [address] High cholesterol; Statin intolerance Social History Tobacco Use Types Packs/Day Years [...] Description 03/13/2025 1:00 PM EST Clinical Support [facility] MEDICINE [address] [place] [address] Corrie Chen, SCOUT documented as of this encounter Visit Diagnoses Diagnosis High cholesterol Pure hypercholesterolemia Statin intolerance documented in this encounter Additional Health Concerns Assessment Noted Time PHQ-9 Depression Total Score: 17 025 2:50 PM EST documented as of this encounter Care Teams Electric Stop Installer Relationship Specialty Start Date End Date Name, MD Rock [address] [place] [address] PCP - General Family Medicine 07/04/15 documented as of this encounter
--- OUTSIDE RECORDS SUMMARY | 2025-01-01 14:37 | XMS_ITS | Encounter Summary ---
Author Organization [employer] Address [address] [place] [address] 7 [place] [address] Care Team Providers Care Hotel Attendant Name Role Phone Name, Rock DE PAZ Primary Care Provider [phone] Reason for Visit * Reason Comments Med Refill Encounter Details Date Type Department Care Team ([facility] st Contact Info) Description 04/26/2023 Refill [facility] MEDICINE 230 [place], [place] [phone] Name, MD Rock 230 [place] [address] Insomnia, unspecified type Social History Tobacco Use [...] Description 03/13/2025 1:00 PM EST Clinical Support [facility] MED[facility]INE 230 [place] [address] Corrie Chen RN documented as of this encounter Visit Diagnoses Diagnosis Insomnia, unspecified type documented in this encounter Additional Health Concerns Assessment Noted Time PHQ-9 Depression Total Score: 21 023 10:14 AM EDT documented as of this encounter Care Teams Hotel Attendant Relationship Specialty Start Date End Date Name, MD Rock 230 [place] [address] PCP - General Family Medicine 07/04/15 documented as of this encounter
--- OUTSIDE RECORDS SUMMARY | 2025-01-01 14:37 | XMS_ITS | Encounter Summary ---
Author Organization [employer] Address [address] [place] [address] 7 [place] [address] Care Team Providers Care Stonemason Helper Name Role Phone Name, Rock DE PAZ Primary Care Provider [phone] Reason for Visit * Reason Comments Med Refill Encounter Details Date Type Department Care Team ([facility] st Contact Info) Description 08/22/2024 Refill [facility] [address] [place], [place] [phone] Name, MD Rock [address] [place] [address] Chronic pain syndrome Social History Tobacco Use [...] 03/13/2025 1:00 PM EST Clinical Support [facility] [address] [place] [address] Corrie Chen, SCOUT documented as of this encounter Visit Diagnoses Diagnosis Chronic pain syndrome documented in this encounter Additional Health Concerns Assessment Noted Time PHQ-9 Depression Total Score: 17 025 2:50 PM EST documented as of this encounter Care Teams Stonemason Helper Relationship Specialty Start Date End Date Name, MD Rock [address] [place] [address] PCP - General Family Medicine 07/04/15 documented as of this encounter
--- OUTSIDE RECORDS SUMMARY | 2025-01-01 14:37 | XMS_ITS | Encounter Summary ---
Author Organization [employer] Address [address] [place] [address] Care Team Providers Care Cloth Weigher Name Role Phone Name, Rock DE PAZ Primary Care Provider [phone] Reason for Visit * Reason Comments Med Refill Encounter Details Date Type Department Care Team ([facility] Contact Info) Description 09/21/2022 Refill [facility] MEDICINE [address] [place] [phone] Name, MD Rock [address] [place] [address] Insomnia, unspecified type; Pain Social History Tobacco [...] Upcoming Encounters Date Type Department Care Team ([facility] Contact Info) Description 03/13/2025 1:00 PM EST Clinical Support [facility] MEDICINE [address] [place] [address] Corrie Chen, RN documented as of this encounter Visit Diagnoses Diagnosis Insomnia, unspecified type Pain Generalized pain documented in this encounter Care Teams Cloth Weigher Relationship Specialty Start Date End Date Name, MD Rock 230 [place] [address] PCP - General Family Medicine 07/04/15 documented as of this encounter
--- OUTSIDE RECORDS SUMMARY | 2025-01-01 14:37 | XMS_ITS | Encounter Summary ---
Author Organization [employer] Address [address] [place] [address] 7 [place] [address] Care Team Providers Care Private Wealth Advisor Name Role Phone NameRock MD Primary Care Provider [phone] Reason for Visit * Reason Comments Med Refill Encounter Details Date Type Department Care Team ([facility] st Contact Info) Description 11/29/2023 Refill [facility] [address] [place] [address] [phone] Name, MD Rock [address] [place] [address] Chronic pain syndrome Social History Tobacco Use [...] Description 03/13/2025 1:00 PM EST Clinical Support [facility] 230 [place] [address] Corrie Chen RN documented as of this encounter Visit Diagnoses Diagnosis Chronic pain syndrome documented in this encounter Additional Health Concerns Assessment Noted Time PHQ-9 Depression Total Score: 12 024 2:16 PM EDT documented as of this encounter Care Teams Private Wealth Advisor Relationship Specialty Start Date End Date Name, MD Rock 230 [place] [address] PCP - General Family Medicine 07/04/15 documented as of this encounter
--- OUTSIDE RECORDS SUMMARY | 2025-01-01 14:37 | XMS_ITS | Encounter Summary ---
Author Organization [employer] Address [address] [place] [address] Care Team Providers Care Wood Cut Engraver Name Role Phone Name, Rock DE PAZ Primary Care Provider [phone] Reason for Visit * Reason Onset Date Comments Med Refill 09/10/2024 Encounter Details Date Type Department Care Team (Late st Contact Info) Description 09/10/2024 Refill [facility] MEDICINE [address] [place], [place] [phone] Name, MD Rock [address] [place] [address] Hypophosphatemia Social History Tobacco Use Types Packs/Day [...] 1:00 PM EST Clinical Support [facility] MEDICINE [address] [place] [address] Corrie Chen, SCOUT documented as of this encounter Visit Diagnoses Diagnosis Hypophosphatemia Disorders of phosphorus metabolism documented in this encounter Additional Health Concerns Assessment Noted Time PHQ-9 Depression Total Score: 17 025 2:50 PM EST documented as of this encounter Care Teams Wood Cut Engraver Relationship Specialty Start Date End Date Name, MD Rock [address] [place] [address] PCP - General Family Medicine 07/04/15 documented as of this encounter
--- OUTSIDE RECORDS SUMMARY | 2025-01-01 14:37 | XMS_ITS | Encounter Summary ---
Author Organization [employer] Address [address] [place] [address] Care Team Providers Care Autopsy Assistant Name Role Phone Name, Rock DE PAZ Primary Care Provider [phone] Encounter Details Date Type Department Care Team (Late st Contact Info) Description 04/30/2022 Orders Only [facility] [address] [place] [address] Cheyenne Sánchez LPN Social History Tobacco Use [...] Description 03/13/2025 1:00 PM EST Clinical Support [facility] MEDICINE 230 [place] [address] Corrie Chen RN documented as of this [...] N Telopetide (NTx) 50 see note [facility] Comment:Result Units: nM BCE /mM creatPremenopausal Females: 4 - 64 nM BCE/mM creatResults are primarily used for monitoring theresponse to therapy. A value within thepremenopausal range does not rule out osteoporosisnor the need for therapyUnits of Measure: nM BCE/mM creat CREATININE, RANDOM URINE 114 20 - 275 mg/dL [facility] Comment:THIS TEST WAS PERFOR MED AT:[employer]/[address] [id number] [place] [address]JPEWKVLCARMELITA WRIGHT MD,PHD 05/04/2022 3:06 PM EST 05/04/2022 3:22 PM EST us [facility] External Provider LAB URI NE ORDERABLES Final Result [facility] [address] [place] [phone] * Protein Electrophoresis and Lipan/Lambda Light Chains (05/04/2022 2:30 PM EST) Prot Elec - Total Protein 7.0 6.1 - 8.1 g/dL [facility] Prot Elec - Albumin 4.2 3.8 - 4.8 g/dL [facility] Prot Elec - Alpha1 0.3 0.2 - 0.3 g/dL [facility] Prot Elec - Alpha2 0.8 0.5 - 0.9 g/dL [facility] Prot Elec - Beta 1 0.6 0.4 - 0.6 g/dL [facility] Prot Elec - Beta 2 0.3 0.2 - 0.5 g/dL [facility] Prot Elec - Gamma 0.8 0.8 - 1.7 g/dL [facility] PES - Abn Protein Band 1 TNP [facility] PES-Abn Protein Band 2 TNP [facility] PES-Abn Protein Band 3 [facility] Prot Elec - Interpretation SEE NOTE [facility] Comment:Normal Electrophoret ic PatternTHIS TEST WAS PERFORMED AT:[employer] [address] ([address] [address]OYXQHNANCY ADKINS MD 05/04/2022 2:30 PM EST 05/04/2022 2:33 PM EST us [facility] External Provider LAB BLO OD ORDERABLES Final Result Performing Organization Address City/[facility]/ZIP Co de Phone Number [facility] [address] [place] [phone] * Alkaline Phosphatase, Bone Specific (05/04/2022 2:30 PM EST) Alkaline Phosphatase, Bone Specific 11.6 5.6 - 29.0 mcg/L [facility] Comment:Reference Range, Pre menopausal (mcg/L) 35-45 years 5.0-18.2THIS TEST WAS PERFORMED AT:[employer]/[id number] [place] [address]NQVJUBLCARMELITA WRIGHT MD,PHD 05/04/2022 2:30 PM EST 05/04/2022 2:33 PM EST [facility] External Provider LAB BLO OD ORDERABLES Final Result Performing Organization Address [facility] Co de Phone Number [facility] [address] [place] [phone] * Thyroid Peroxidase And Thyroglobulin Antibodies (05/04/2022 2:30 PM EST) Thyroglobulin Antibodies <1 < or = 1 IU/mL [facility] Comment:THIS TEST WAS PERFOR MED AT:[employer] [address] ([address], [place] [address]MUDAHNANCY ADKINS MD 05/04/2022 2:30 PM EST 05/04/2022 2:33 PM EST [facility] External Provider LAB BLO OD ORDERABLES Final Result Performing Organization Address [facility] de [facility] Number [facility] [address] [place] [phone] * (ABNORMAL) Thyroglobulin, LC/MS/MS (05/04/2022 2:30 PM EST) Thyroglobulin, LC/MS/MS <0.1(A) ng/mL [facility] Comment:Reference Range: Int act Thyroid 2.8-40.9 Athyrotic <0.1 Note: Abnormal flagging is based on the reference interval for patients with intact thyroid.This test was performed using the Kristen Coulterchemiluminescent method. Values obtained fromdifferent assay methods cannot be usedinterchangeably. Thyroglobulin levels, regardlessof value, should not be interpreted as absoluteevidence of the presence or absence of disease. Thyroglobulin Comment See Below [facility] Comment:Thyroglobulin antibo dies (TGAB) interfere withthyroglobulin (TG) assays; therefore, TGAB assayshould always be performed in conjunction with aTG assay.For additional information, please refer tohttp://education.[employer]faq/EEL169(This link is being provided for informational/educational purposes only.)THIS TEST WAS PERFORMED AT:[address] [place] [address] (1)[place] [address]TRMZTNANCY ADKINS MD 05/04/2022 2:30 PM EST 05/04/2022 2:33 PM EST [facility] External Provider LAB BLO OD ORDERABLES Final Result Performing Organization Address [facility] Co de Phone Number [facility] [address] [place] [phone] * PTH, Intact Without Calcium (05/04/2022 2:30 PM EST) PTHI 73 16 - 77 pg/mL [facility] Comment:Interpretive Guide I ntact PTH Calcium -------Normal Parathyroid Normal NormalHypoparathyroidism Low or Low Normal LowHyperparathyroidism Primary Normal or High High Secondary High Normal or Low Tertiary High HighNon-Parathyroid Hypercalcemia Low or Low Normal High Calcium (PTHI) 8.9 8.6 - 10.4 mg/dL [facility] Comment:THIS TEST WAS PERFOR MED AT:[address] [place] [address] (1)[place] [address]DHCPFNANCY ADKINS MD 05/04/2022 2:30 PM EST 05/04/2022 2:33 PM EST [facility] External Provider LAB BLO OD ORDERABLES Final Result Performing Organization Address [facility] Co de Phone Number [facility] [address] [place] [phone] * TSH (05/04/2022 2:30 PM EST) Thyroid Stimulating Hormone 3.46 0.32 - 4.0 uIU/mL [facility] Comment:Note: A sustained TS H level above 2.5 uIU/mL may warrant further investigation. TSH 3rd Generation ([facility]) 05/04/2022 2:30 PM EST 05/04/2022 2:33 PM EST [facility] External Provider LAB BLO OD ORDERABLES Final Result [facility] [address] [place] [phone] * T4, Free (05/04/2022 2:30 PM EST) Free T4 (Free Thyroxine) 1.14 0.71 - 1.85 ng/dL [facility] 05/04/2022 2:30 PM EST 05/04/2022 2:33 PM EST [facility] External Provider LAB BLO OD ORDERABLES Final Result [facility] [address] [place] [phone] * Vitamin D, 25-Hydroxy, Total, Immunoassay (05/04/2022 2:30 PM EST) Vitamin D 25-OH Total 25.8 >30 ng/mL [facility] Comment:Health Based Referen ce Values*< 20 ng/mL Aammcgwiq91-87 ng/mL Insufficient> 30 ng/mL Sufficient*[place] KRUSE. N [...] 2:30 PM EST 05/04/2022 2:33 PM EST [facility] External Provider LAB BLO OD ORDERABLES Final Result Performing Organization Address City/[facility]/ZIP Co de Phone Number [facility] [address] [place] [address] [phone] * Phosphate (As Phosphorus) (05/04/2022 2:30 PM EST) Phosphorus 3.0 2.7 - 4.5 mg/dL [facility] 05/04/2022 2:30 PM EST 05/04/2022 2:33 PM EST [facility] External Provider LAB BLO OD ORDERABLES Final Result Performing Organization Address [facility]/ZIP Co de Phone Number [facility] [address] [place] [phone] * Comprehensive Metabolic Panel (05/04/2022 2:30 PM EST) Sodium 138 135 - 145 mmol/L [facility] Potassium 4.8 3.3 - 5.1 mmol/L [facility] Chloride 106 96 - 108 mmol/L [facility] Carbon Dioxide 24 22 - 29 mmol/L [facility] Anion Gap 13 12 - 20 [facility] Urea Nitrogen (BUN) 15 9 - 16 mg/dL [facility] Creatinine, Serum 0.85 0.5 - 1.4 mg/dL [facility] Estimated Glomerular Filt Rate >60 [facility] Comment:NOTE: For -Am erican individuals, multiply the result by 1.210.Chronic Kidney Disease: Estimated GFR < 60 mL/min/1.74d3Mmvfmi Kidney Disease: Estimated GFR < 15 mL/min/1.73m2 Glucose 90 60 - 115 mg/dL [facility] Calcium 9.0 8.4 - 10.2 mg/dL [facility] Bilirubin, Total 0.3 0.0 - 1.0 mg/dL [facility] Aspartate Amino Transferase 26 5 - 31 U/L [facility] Alanine Aminotransferase 28 0 - 31 U/L [facility] Total Protein 6.8 6.5 - 8.0 g/dL [facility] Albumin Level 4.2 3.5 - 5.0 g/dL [facility] Alkaline Phosphatase 61 39 - 117 U/L [facility] 05/04/2022 2:30 PM EST 05/04/2022 2:33 PM EST us [facility] External Provider LAB BLO OD ORDERABLES Final Result Performing Organization Address City/State/[facility] Co de Phone Number [facility] [address] [place] [phone] documented in this encounter Visit Diagnoses Not on filedocumented in this encounter Care Teams Autopsy Assistant Relationship Specialty Start Date End Date Name, MD Rock [address] [place] [address] PCP - General Family Medicine 07/04/15 documented as of this encounter
--- OUTSIDE RECORDS SUMMARY | 2025-01-01 14:37 | XMS_ITS | Encounter Summary ---
Author Organization [employer] Address [address] [place] [address] Care Team Providers Care Education Manager Name Role Phone Name, Rock DE PAZ Primary Care Provider [phone] Reason for Visit * Reason Comments Med Refill Encounter Details Date Type Department Care Team ([facility] Contact Info) Description 09/16/2022 Refill [facility] MEDICINE [address] [place] [phone] Name, MD Rock [address] [place] [phone] Chronic pain syndrome Social History Tobacco Use [...] Upcoming Encounters Date Type Department Care Team ([facility] Contact Info) Description 03/13/2025 1:00 PM EST Clinical Support [facility] MED[facility]INE [address] [place] [phone] Corrie Chen, SCOUT documented as of this encounter Visit Diagnoses Diagnosis Chronic pain syndrome documented in this encounter Care Teams Education Manager Relationship Specialty Start Date End Date Name, MD Rock [address] [place] [address] PCP - General Family Medicine 07/04/15 documented as of this encounter
--- OUTSIDE RECORDS SUMMARY | 2025-01-01 14:37 | XMS_ITS | Encounter Summary ---
Author Organization [employer] Address [address] [place] [address] 7 [place] [address] Care Team Providers Care Lumber Tying Machine Operator Name Role Phone Name, Rock DE PAZ Primary Care Provider [phone] Encounter Details Date Type Department Care Team (Late st Contact Info) Description 11/24/2023 Abstract [facility] MEDICINE [address] [place], [place] [phone] Name, MD Rock [address] [place] [address] Social History Tobacco Use Types Packs/Day Years [...] Description 03/13/2025 1:00 PM EST Clinical Support [facility] [address] [place] [address] Corrie Chen RN documented as of this encounter Procedures Procedure Name Priority Date/Time Associated Diagnosis Comments HM COLONOSCOPY Routine 11/22/2023 documented in this encounter Results * Hm Colonoscopy (11/22/2023) Colonoscopy Normal Normal Rock Rodrigues MD HEALTH MAINTENANCE Final Result documented in this encounter Visit Diagnoses Not on filedocumented in this encounter Additional Health Concerns Assessment Noted Time PHQ-9 Depression Total Score: 12 024 2:16 PM EDT documented as of this encounter Care Teams Lumber Tying Machine Operator Relationship Specialty Start Date End Date Name, MD Rock [address] [place] [address] PCP - General Family Medicine 07/04/15 documented as of this encounter
--- OUTSIDE RECORDS SUMMARY | 2025-01-01 14:37 | XMS_ITS | Encounter Summary ---
Author Organization [employer] Address [address] [place] [address] 7 [place] [address] Care Team Providers Care Agent Name Role Phone Name, Rock DE PAZ Primary Care Provider [phone] Reason for Visit * Reason Onset Date Comments Medication Question 05/31/2023 Encounter Details Date Type Department Care Team ([facility] st Contact Info) Description 05/31/2023 Telephone [facility] [address] [place], [place] [phone] Name, MD Rock 230 [place] [address] Medication Question Social History Tobacco Use Types [...] a week . pt. Advised to call Crozer Operator because medication was prescribe by Crozer Operator. Pt. States cook pie also prescribe blood works before prescribing these medication, but as per pt. PCP is managing kidney related function and low phosphorus so want to discuss about these medication. Pt. Advised that message will be sent to PCP for review. Please review and advise. Tc from pt requesting to speak with provider in regards to two medications that are being offered by the Crozer Operator which are Pimwall which has to be injected every single day and Levaradi which is once a week . Pt would like to discuss this with PCP or nurse to verify if it's okay and which medication should she go for due to her medical History. Please contact pt @ [phone] * Telephone Encounter - Esperanza Bravo - 05/31/2023 2:02 PM EST Tc from pt requesting to speak with provider in regards to two medications that are being offered by the Crozer Operator which are Pimwall which has to be injected every single day and Levaradi whichis once a week . Pt would like to discuss this with PCP or nurse to verify if it's okay and which medication should she go for due to her medical History. Please contact pt @ [phone] documented in this encounter Plan of Treatment Upcoming Encounters Date Type Department Care Team (Late st Contact Info) Description 03/13/2025 1:00 PM EST Clinical Support [facility] [address] [place] [address] Corrie Chen, RN documented as of this encounter Visit Diagnoses Not on filedocumented in this encounter Additional Health Concerns Assessment Noted Time PHQ-9 Depression Total Score: 21 023 10:14 AM EDT documented as of this encounter Care Teams Agent Relationship Specialty Start Date End Date Name, MD Rock [address] [place] [address] PCP - General Family Medicine 07/04/15 documented as of this encounter
--- OUTSIDE RECORDS SUMMARY | 2025-01-01 14:37 | XMS_ITS | Encounter Summary ---
Author Organization [employer] Address [address] [place] [address] Care Team Providers Care Child Care Supervisor Name Role Phone Name, Rock DE PAZ Primary Care Provider [phone] Reason for Visit * Reason Onset Date Comments Med Refill 06/14/2024 Encounter Details Date Type Department Care Team (Late st Contact Info) Description 06/14/2024 Refill [facility] MEDICINE 230 [place], [place] [phone] Name, MD Rock 230 [place] [address] Chronic pain syndrome Social History Tobacco Use [...] Description 03/13/2025 1:00 PM EST Clinical Support [facility] MEDICINE 230 [place] [address] Corrie Chen, SCOUT documented as of this encounter Visit Diagnoses Diagnosis Chronic pain syndrome documented in this encounter Additional Health Concerns Assessment Noted Time PHQ-9 Depression Total Score: 17 025 2:50 PM EST documented as of this encounter Care Teams Child Care Supervisor Relationship Specialty Start Date End Date Name, MD Rock [address] [place] [address] PCP - General Family Medicine 07/04/15 documented as of this encounter
--- OUTSIDE RECORDS SUMMARY | 2025-01-01 14:37 | XMS_ITS | Encounter Summary ---
Author Organization [employer] Address [address] [place] [address] 7 [place] [address] Care Team Providers Care Dip Lube Operator Name Role Phone Name, Rock DE PAZ Primary Care Provider [phone] Encounter Details Date Type Department Care Team (Latest Contact Info) Description 2025 Travel Social History Tobacco Use Types Packs/Day [...] Description 03/13/2025 1:00 PM EST Clinical Support [facility] MEDICINE [address] [place] [address] Corrie Chen RN documented as of this encounter Visit Diagnoses Not on filedocumented in this encounter Additional Health Concerns Assessment Noted Time PHQ-9 Depression Total Score: 17 025 2:50 PM EST documented as of this encounter Care Teams Dip Lube Operator Relationship Specialty Start Date End Date Name, MD Rock 230 [place] [address] PCP - General Family Medicine 07/04/15 documented as of this encounter
--- OUTSIDE RECORDS SUMMARY | 2025-01-01 14:37 | XMS_ITS | Encounter Summary ---
Author Organization [employer] Address [address] [place] [address] Care Team Providers Care Air Pumper Name Role Phone Name, Rock DE PAZ Primary Care Provider [phone] Reason for Visit * Reason Onset Date Comments Med Refill 09/15/2024 Encounter Details Date Type Department Care Team (Late st Contact Info) Description 09/15/2024 Refill [facility] MEDICINE [address] [place], [place] [phone] Name, MD Rock [address] [place] [address] Hypophosphatemia Social History Tobacco Use Types Packs/Day [...] 1:00 PM EST Clinical Support [facility] MEDICINE [address] [place] [address] Corrie Chen, SCOUT documented as of this encounter Visit Diagnoses Diagnosis Hypophosphatemia Disorders of phosphorus metabolism documented in this encounter Additional Health Concerns Assessment Noted Time PHQ-9 Depression Total Score: 17 025 2:50 PM EST documented as of this encounter Care Teams Air Pumper Relationship Specialty Start Date End Date Name, MD Rock [address] [place] [address] PCP - General Family Medicine 07/04/15 documented as of this encounter
--- OUTSIDE RECORDS SUMMARY | 2025-01-01 14:37 | XMS_ITS | Encounter Summary ---
Author Organization [employer] Address [address] [place] [address] Care Team Providers Care Ob Gyn Name Role Phone Name, Rock DE PAZ Primary Care Provider [phone] Reason for Visit * Reason Comments Med Refill Encounter Details Date Type Department Care Team (Late st Contact Info) Description 04/08/2022 Refill [facility] [address] [place] [address] Yoni Mccormick MD [address] [place] [address] Social History Tobacco Use Types Packs/Day Years [...] Description 03/13/2025 1:00 PM EST Clinical Support [facility] MEDICINE [address] [place] [address] Corrie Chen RN documented as of this encounter Visit Diagnoses Not on filedocumented in this encounter Care Teams Ob Gyn Relationship Specialty Start Date End Date Name, MD Rock [address] [place] [address] PCP - General Family Medicine 07/04/15 documented as of this encounter
--- OUTSIDE RECORDS SUMMARY | 2025-01-01 14:37 | XMS_ITS | Encounter Summary ---
Author Organization [employer] Address [address] [place] [address] Care Team Providers Care Pelota Maker Name Role Phone Name, Rock DE PAZ Primary Care Provider [phone] Reason for Visit * Reason Onset Date Comments Med Refill 12/01/2024 Encounter Details Date Type Department Care Team (Late st Contact Info) Description 12/01/2024 Refill [facility] MED[facility]INE [address] [place], [place] [phone] Name, MD Rock [address] [place] [address] High cholesterol; Statin intolerance Social History Tobacco [...] [facility] [address] [place] [address] Corrie Chen, SCOUT documented as of this encounter Visit Diagnoses Diagnosis High cholesterol Pure hypercholesterolemia Statin intolerance documented in this encounter Additional Health Concerns Assessment Noted Time PHQ-9 Depression Total Score: 17 025 2:50 PM EST documented as of this encounter Care Teams Pelota Maker Relationship Specialty Start Date End Date Name, MD Rock [address] [place] [address] PCP - General Family Medicine 07/04/15 documented as of this encounter
--- OUTSIDE RECORDS SUMMARY | 2025-01-01 14:37 | XMS_ITS | Encounter Summary ---
Author Organization [employer] Address [address] [place] [address] [place] [address] Care Team Providers Care Market Consultant Name Role Phone Name, Rock DE PAZ Primary Care Provider [phone] Reason for Visit * Reason Comments Med Refill Encounter Details Date Type Department Care Team ([facility] st Contact Info) Description 09/15/2024 Refill [facility] MEDICINE [address] [place], [place] [phone] Name, MD Rock [address] [place] [address] Hypophosphatemia Social History Tobacco Use Types Packs/Day [...] Description 03/13/2025 1:00 PM EST Clinical Support [facility] MEDICINE [address] [place] [address] Corrie Chen, RN documented as of this encounter Visit Diagnoses Diagnosis Hypophosphatemia Disorders of phosphorus metabolism documented in this encounter Additional Health Concerns Assessment Noted Time PHQ-9 Depression Total Score: 17 025 2:50 PM EST documented as of this encounter Care Teams Market Consultant Relationship Specialty Start Date End Date Name, MD Rock [address] [place] [address] PCP - General Family Medicine 07/04/15 documented as of this encounter
--- OUTSIDE RECORDS SUMMARY | 2025-01-01 14:37 | XMS_ITS | Encounter Summary ---
Author Organization [employer] Address [address] [place] [address] [place] [address] Care Team Providers Care Senior Hadoop Developer Name Role Phone Name, Rock DE PAZ Primary Care Provider [phone] Reason for Visit * Reason Onset Date Comments Med Refill 04/27/2024 Encounter Details Date Type Department Care Team (Late st Contact Info) Description 04/27/2024 Refill [facility] MEDICINE [address] [place], [place] [phone] Name, MD Rock [address] [place] [address] Chronic pain syndrome Social History Tobacco Use [...] Description 03/13/2025 1:00 PM EST Clinical Support [facility] MED[facility]INE [address] [place] [address] Corrie Chen, SCOUT documented as of this encounter Visit Diagnoses Diagnosis Chronic pain syndrome documented in this encounter Additional Health Concerns Assessment Noted Time PHQ-9 Depression Total Score: 12 024 2:16 PM EDT documented as of this encounter Care Teams Senior Hadoop Developer Relationship Specialty Start Date End Date Name, MD Rock [address] [place] [address] PCP - General Family Medicine 07/04/15 documented as of this encounter
--- OUTSIDE RECORDS SUMMARY | 2025-01-01 14:37 | XMS_ITS | Encounter Summary ---
Author Organization [employer] Address [address] [place] [address] Care Team Providers Care Occupational Safety And Health Manager Name Role Phone Name, Rock DE PAZ Primary Care Provider [phone] Encounter Details Date Type Department Care Team (Late st Contact Info) Description 05/06/2022 Orders Only [facility] [address] [place] [address] Karen Falk LPN Social History Tobacco Use [...] Description 03/13/2025 1:00 PM EST Clinical Support [facility] [address] [place] [phone] Corrie Chen, SCOUT documented as of this encounter Visit Diagnoses Not on filedocumented in this encounter Care Teams Occupational Safety And Health Manager Relationship Specialty Start Date End Date Name, MD Rock [address] [place] [phone] PCP - General Family Medicine 07/04/15 documented as of this encounter
--- OUTSIDE RECORDS SUMMARY | 2025-01-01 14:38 | XMS_ITS | Encounter Summary ---
Author Organization [employer] Address [address] [place] [address] Care Team Providers Care Chaser Helper Name Role Phone Name, Rock DE PAZ Primary Care Provider [phone] Reason for Visit * Reason Onset Date Comments Med Refill 07/09/2024 Encounter Details Date Type Department Care Team (Late st Contact Info) Description 07/09/2024 Refill [facility] MEDICINE [address] [place], [place] [phone] Name, MD Rock [address] [place] [address] Chronic pain syndrome Social History Tobacco Use [...] Description 03/13/2025 1:00 PM EST Clinical Support [facility] MEDICINE [address] [place] [address] Corrie Chen, SCOUT documented as of this encounter Visit Diagnoses Diagnosis Chronic pain syndrome documented in this encounter Additional Health Concerns Assessment Noted Time PHQ-9 Depression Total Score: 17 025 2:50 PM EST documented as of this encounter Care Teams Chaser Helper Relationship Specialty Start Date End Date Name, MD Rock [address] [place] [address] PCP - General Family Medicine 07/04/15 documented as of this encounter
--- OUTSIDE RECORDS SUMMARY | 2025-01-01 14:38 | XMS_ITS | Encounter Summary ---
Author Organization [employer] Address [address] [place] [address] [place] [address] Care Team Providers Care River Rafting Guide Name Role Phone Name, Rock DE PAZ Primary Care Provider [phone] Reason for Visit * Reason Onset Date Comments Med Refill 05/08/2024 Encounter Details Date Type Department Care Team (Late st Contact Info) Description 05/08/2024 Refill [facility] MEDICINE 230 [place], [place] [phone] Name, MD Rock [address] [place] [address] Chronic pain syndrome; Insomnia, unspecified type Social [...] housing situation today? I have sarahmargy ruffin 02/08/[address] you [...] Description 03/13/2025 1:00 PM EST Clinical Support [facility] MEDICINE [address] [place] [address] Corrie Chen, RN documented as of this encounter Visit Diagnoses Diagnosis Chronic pain syndrome Insomnia, unspecified type documented in this encounter Additional Health Concerns Assessment Noted Time PHQ-9 Depression Total Score: 12 024 2:16 PM EDT documented as of this encounter Care Teams River Rafting Guide Relationship Specialty Start Date End Date Name, MD Rock [address] [place] [address] PCP - General Family Medicine 07/04/15 documented as of this encounter
--- OUTSIDE RECORDS SUMMARY | 2025-01-01 14:38 | XMS_ITS | Encounter Summary ---
Author Organization [employer] Address [address] [place] [address] [place] [address] Care Team Providers Care Mail Deliverer Name Role Phone Name, Rock DE PAZ Primary Care Provider [phone] Reason for Visit * Reason Onset Date Comments Med Refill 02/09/2024 Encounter Details Date Type Department Care Team (Late st Contact Info) Description 02/09/2024 Refill [facility] MEDICINE [address] [place], [place] [phone] Name, MD Rock [address] [place] [address] Chronic pain syndrome; Insomnia, unspecified type Social [...] Description 03/13/2025 1:00 PM EST Clinical Support [facility] MEDICINE [address] [place] [address] Corrie Chen, RN documented as of this encounter Visit Diagnoses Diagnosis Chronic pain syndrome Insomnia, unspecified type documented in this encounter Additional Health Concerns Assessment Noted Time PHQ-9 Depression Total Score: 12 024 2:16 PM EDT documented as of this encounter Care Teams Mail Deliverer Relationship Specialty Start Date End Date Name, MD Rock [address] [place] [address] PCP - General Family Medicine 07/04/15 documented as of this encounter
--- OUTSIDE RECORDS SUMMARY | 2025-01-01 14:38 | XMS_ITS | Encounter Summary ---
Author Organization [employer] Address [address] [place] [address] 7 [place] [address] Care Team Providers Care Bake Room Worker Name Role Phone Name, Rock DE PAZ Primary Care Provider [phone] Reason for Visit * Reason Comments Med Refill Encounter Details Date Type Department Care Team (Late st Contact Info) Description 11/20/2022 Refill [facility] MEDICINE 230 [place], [place] [phone] Fany Pearson MD [address] [place] [address] Chronic pain syndrome; Insomnia, unspecified type Social [...] PM EDT documented as of this encounter Functional Status * Over the past 2 weeks, how often have you been bothered by any of the following problems? Question Answer Date of Assessment Author Patient Health Questionnaire -2 Score 6 11/20/2022 10:14 AM Kevyn Norman * If you checked off any problems on this questionnaire so far, Question Answer Date of Assessment Author How difficult have these problems made it for you to do your work, take care of things at home, or get along with other people? Very difficult 11/20/2022 10:14 AM Josephine Norman * Over the past 2 weeks, how often have you been bothered by any of the following problems? Question Answer Date of Assessment Author Little interest or pleasure in doing things Nearly every day 11/20/2022 10:14 AM Josephine Norman Feeling down, depressed, or hopeless Nearly every day 11/20/2022 10:14 AM Josephine Norman Trouble falling or staying asleep, or sleeping too much Nearly every day 11/20/2022 10:14 AM Josephine Norman Feeling tired or having little energy Nearly every day 11/20/2022 10:14 AM Josephine Norman Poor appetite or overeating Nearly every day 11/20/2022 10:14 AM Josephine Norman Feeling bad about yourself - or that you are a failure or have let yourself or your family down More than half the days 11/20/2022 10:14 AM Josephine Norman Trouble concentrating on things, such as reading the newspaper or watching television Nearly every day 11/20/2022 10:14 AM Josephine Norman Moving or speaking so slowly that other people could have noticed? Or the opposite - being so fidgety or restless that you have been moving around a lot more than usual. Not at all 11/20/2022 10:14 AM Josephine Norman Thoughts that you would be better off or hurting yourself in some way Several days 11/20/2022 10:14 AM Josephine Norman Patient Health Questionnaire-9 Score 21 11/20/2022 10:14 AM Josephine Norman documented as of this encounter Plan of Treatment Upcoming Encounters Date Type Department Care Team (Late st Contact Info) Description 03/13/2025 1:00 PM EST Clinical Support [facility] MEDICINE [address] [place] [address] Corrie Chen, RN documented as of this encounter Visit Diagnoses Diagnosis Chronic pain syndrome Insomnia, unspecified type documented in this encounter Additional Health Concerns Assessment Noted Time PHQ-9 Depression Total Score: 21 11/20/ 023 10:14 AM EDT documented as of this encounter Care Teams Bake Room Worker Relationship Specialty Start Date End Date Name, MD Rock [address] [facility] [place] [address] PCP - General Family Medicine 07/04/15 documented as of this encounter
--- OUTSIDE RECORDS SUMMARY | 2025-01-01 14:38 | XMS_ITS | Encounter Summary ---
Author Organization [employer] Address [address] [place] [address] [place] [address] Care Team Providers Care Restaurant Bartender Name Role Phone Name, Rock DE PAZ Primary Care Provider [phone] Reason for Visit * Reason Onset Date Comments Med Refill 05/08/2024 Encounter Details Date Type Department Care Team (Late st Contact Info) Description 05/08/2024 Refill [facility]ED[facility] [address] [place] [address] Name, MD Rock [address] [place] [address] Rhinorrhea Social History Tobacco Use Types Packs/Day [...] 1:00 PM EST Clinical Support [facility] MEDICINE [address] [place] [address] Corrie Chen, SCOUT documented as of this encounter Visit Diagnoses Diagnosis Rhinorrhea Other diseases of nasal cavity and sinuses documented in this encounter Additional Health Concerns Assessment Noted Time PHQ-9 Depression Total Score: 12 024 2:16 PM EDT documented as of this encounter Care Teams Restaurant Bartender Relationship Specialty Start Date End Date Name, MD Rock [address] [place] [address] PCP - General Family Medicine 07/04/15 documented as of this encounter
--- OUTSIDE RECORDS SUMMARY | 2025-01-01 14:38 | XMS_ITS | Encounter Summary ---
Author Organization [employer] Address [address] [place] [address] Care Team Providers Care Spinning Frame Cleaner Name Role Phone Name, Rock DE PAZ Primary Care Provider [phone] Reason for Visit * Reason Onset Date Comments Med Refill 03/10/2024 Encounter Details Date Type Department Care Team (Late st Contact Info) Description 03/10/2024 Refill [facility] MEDICINE [address] [place], [place] [phone] Name, MD Rock [address] [place] [address] Insomnia, unspecified type Social History Tobacco Use [...] Support [facility] MEDICINE [address] [place] [address] Corrie Chen, SCOUT documented as of this encounter Visit Diagnoses Diagnosis Insomnia, unspecified type documented in this encounter Additional Health Concerns Assessment Noted Time PHQ-9 Depression Total Score: 12 024 2:16 PM EDT documented as of this encounter Care Teams Spinning Frame Cleaner Relationship Specialty Start Date End Date Name, MD Rock [address] [place] [address] PCP - General Family Medicine 07/04/15 documented as of this encounter
--- OUTSIDE RECORDS SUMMARY | 2025-01-01 14:38 | XMS_ITS | Encounter Summary ---
Author Organization [employer] Address [address] [place] [address] [address] Care Team Providers Care Floor Person Name Role Phone Name, Rock DE PAZ Primary Care Provider [phone] Reason for Visit * Reason Comments Med Refill Encounter Details Date Type Department Care Team (Late st Contact Info) Description 11/26/2022 Refill [facility] MEDICINE [address] [place] [phone] Name, MD Rock [address] [place] [address] Chronic pain syndrome Social History Tobacco Use [...] Description 03/13/2025 1:00 PM EST Clinical Support [facility] MEDICINE [address] [place] [address] Corrie Chen, SCOUT documented as of this encounter Visit Diagnoses Diagnosis Chronic pain syndrome documented in this encounter Additional Health Concerns Assessment Noted Time PHQ-9 Depression Total Score: 21 11/20/ 023 10:14 AM EDT documented as of this encounter Care Teams Floor Person Relationship Specialty Start Date End Date Name, MD Rock [address] [place] [address] PCP - General Family Medicine 07/04/15 documented as of this encounter
--- OUTSIDE RECORDS SUMMARY | 2025-01-01 14:38 | XMS_ITS | Encounter Summary ---
Author Organization [employer] Address [address] [place] [address] 7 [place] [address] Care Team Providers Care Director Emergency Name Role Phone Name, Rock DE PAZ Primary Care Provider [phone] Reason for Visit * Reason Comments Med Refill Encounter Details Date Type Department Care Team ([facility] st Contact Info) Description 07/31/2024 Refill [facility] MEDICINE [address] [place], [place] [phone] Name, MD Rock [address] [place] [address] Chronic pain syndrome Social History Tobacco Use [...] 03/13/2025 1:00 PM EST Clinical Support [facility] MEDICINE [address] [place] [address] Corrie Chen, SCOUT documented as of this encounter Visit Diagnoses Diagnosis Chronic pain syndrome documented in this encounter Additional Health Concerns Assessment Noted Time PHQ-9 Depression Total Score: 17 025 2:50 PM EST documented as of this encounter Care Teams Director Emergency Relationship Specialty Start Date End Date Name, MD Rock [address] [place] [address] PCP - General Family Medicine 07/04/15 documented as of this encounter
--- OUTSIDE RECORDS SUMMARY | 2025-01-01 14:38 | XMS_ITS | Encounter Summary ---
Author Organization [employer] Address [address] [place] [address] [place] [address] Care Team Providers Care Data Compiler Name Role Phone Name, Rock DE PAZ Primary Care Provider [phone] Reason for Visit * Reason Onset Date Comments Med Refill 02/09/2024 Encounter Details Date Type Department Care Team (Late st Contact Info) Description 02/09/2024 Refill [facility] MEDICINE [address] [place], [place] [phone] Name, MD Rock [address] [place] [address] Social History Tobacco Use Types Packs/Day Years [...] Description 03/13/2025 1:00 PM EST Clinical Support [facility] MEDICINE [address] [place] [address] Corrie Chen RN documented as of this encounter Visit Diagnoses Not on filedocumented in this encounter Additional Health Concerns Assessment Noted Time PHQ-9 Depression Total Score: 12 024 2:16 PM EDT documented as of this encounter Care Teams Data Compiler Relationship Specialty Start Date End Date Name, MD Rock [address] [place] [address] PCP - General Family Medicine 07/04/15 documented as of this encounter
--- OUTSIDE RECORDS SUMMARY | 2025-01-01 14:38 | XMS_ITS | Encounter Summary ---
Author Organization [employer] Address [address] [place] [address] Care Team Providers Care Forge Press Operator Name Role Phone Name, Rock DE PAZ Primary Care Provider [phone] Reason for Visit * Reason Onset Date Comments Med Refill 05/09/2024 Encounter Details Date Type Department Care Team (Late st Contact Info) Description 05/09/2024 Refill [facility] MEDICINE [address] [place], [place] [phone] Name, MD Rock [address] [place] [address] Rhinorrhea Social History Tobacco Use Types Packs/Day [...] Description 03/13/2025 1:00 PM EST Clinical Support [facility] MEDICINE [address] [place] [address] Corrie Chen, SCOUT documented as of this encounter Visit Diagnoses Diagnosis Rhinorrhea Other diseases of nasal cavity and sinuses documented in this encounter Additional Health Concerns Assessment Noted Time PHQ-9 Depression Total Score: 12 024 2:16 PM EDT documented as of this encounter Care Teams Forge Press Operator Relationship Specialty Start Date End Date Name, MD Rock [address] [place] [address] PCP - General Family Medicine 07/04/15 documented as of this encounter
--- OUTSIDE RECORDS SUMMARY | 2025-01-01 14:38 | XMS_ITS | Encounter Summary ---
Author Organization [employer] Address [address] [place] [address] Care Team Providers Care Lye Peel Operator Name Role Phone Name, Rock DE PAZ Primary Care Provider Reason for Visit * Reason Onset Date Comments Med Refill 06/03/2024 Encounter Details Date Type Department Care Team (Late st Contact Info) Description 06/03/2024 Refill [facility] MEDICINE [address] [place], [place] [phone] Name, MD Rock [address] [place] [address] Hypophosphatemia Social History Tobacco Use Types Packs/Day [...] Description 03/13/2025 1:00 PM EST Clinical Support [facility] MEDICINE [address] [place] [address] Corrie Chen, SCOUT documented as of this encounter Visit Diagnoses Diagnosis Hypophosphatemia Disorders of phosphorus metabolism documented in this encounter Additional Health Concerns Assessment Noted Time PHQ-9 Depression Total Score: 17 025 2:50 PM EST documented as of this encounter Care Teams Lye Peel Operator Relationship Specialty Start Date End Date Name, MD Rock [address] [place] [address] PCP - General Family Medicine 07/04/15 documented as of this encounter
--- OUTSIDE RECORDS SUMMARY | 2025-01-01 14:38 | XMS_ITS | Encounter Summary ---
Author Organization [employer] Address [address] [place] [address] Care Team Providers Care Rn Correctional Name Role Phone Name, Rock DE PAZ Primary Care Provider [phone] Reason for Visit * Reason Onset Date Comments Med Refill 01/31/2024 Encounter Details Date Type Department Care Team ([facility] st Contact Info) Description 01/31/2024 Refill [facility] MED & PEDS [address] [place] [address] Juhi Diaz, CAR VARNISHER [address] [place] [address] Chronic pain syndrome; Insomnia, unspecified type Social [...] Description 03/13/2025 1:00 PM EST Clinical Support [facility] MEDICINE [address] [place] [address] Corrie Chen, RN documented as of this encounter Visit Diagnoses Diagnosis Chronic pain syndrome Insomnia, unspecified type documented in this encounter Additional Health Concerns Assessment Noted Time PHQ-9 Depression Total Score: 12 024 2:16 PM EDT documented as of this encounter Care Teams Rn Correctional Relationship Specialty Start Date End Date Name, MD Rock [address] [place] [address] PCP - General Family Medicine 07/04/15 documented as of this encounter
--- OUTSIDE RECORDS SUMMARY | 2025-01-01 14:38 | XMS_ITS | Encounter Summary ---
Author Organization [employer] Address [address] [place] [address] Care Team Providers Care Motor Installer Name Role Phone Name, Rock DE PAZ Primary Care Provider [phone] Reason for Visit * Reason Comments Med Refill Encounter Details Date Type Department Care Team (Late st Contact Info) Description 11/23/2022 Refill [facility] MEDICINE 230 [place], [place] [phone] Fany Pearson MD 230 [place] [address] Chronic pain syndrome; Insomnia, unspecified type Social [...] [facility] MEDICINE [address] [place] [address] Corrie Chen, RN documented as of this encounter Visit Diagnoses Diagnosis Chronic pain syndrome Insomnia, unspecified type documented in this encounter Additional Health Concerns Assessment Noted Time PHQ-9 Depression Total Score: 21 023 10:14 AM EDT documented as of this encounter Care Teams Motor Installer Relationship Specialty Start Date End Date Name, MD Rock [address] [place] [address] PCP - General Family Medicine 07/04/15 documented as of this encounter
--- OUTSIDE RECORDS SUMMARY | 2025-01-01 14:38 | XMS_ITS | Encounter Summary ---
Author Organization [employer] Address [address] [place] [address] Care Team Providers Care Supervisor Stitching Department Name Role Phone Name, Rock DE PAZ Primary Care Provider [phone] Reason for Visit * Reason Onset Date Comments Med Refill 03/10/2024 Encounter Details Date Type Department Care Team (Late st Contact Info) Description 03/10/[address] [facility] MEDICINE [address] [place], [place] [phone] Name, MD Rock [address] [place] [address] Hypophosphatemia Social History Tobacco Use Types Packs/Day [...] Description 03/13/2025 1:00 PM EST Clinical Support [facility] MEDICINE [address] [place] [address] Corrie Chen, SCOUT documented as of this encounter Visit Diagnoses Diagnosis Hypophosphatemia Disorders of phosphorus metabolism documented in this encounter Additional Health Concerns Assessment Noted Time PHQ-9 Depression Total Score: 12 024 2:16 PM EDT documented as of this encounter Care Teams Supervisor Stitching Department Relationship Specialty Start Date End Date Name, MD Rock [address] [place] [address] PCP - General Family Medicine 07/04/15 documented as of this encounter
--- OUTSIDE RECORDS SUMMARY | 2025-01-01 14:38 | XMS_ITS | Encounter Summary ---
Author Organization [employer] Address [address] [place] [address] Care Team Providers Care Underwriting Technician Name Role Phone Name, Rock DE PAZ Primary Care Provider [phone] Reason for Visit * Reason Onset Date Comments Med Refill 08/01/2024 Encounter Details Date Type Department Care Team (Late st Contact Info) Description 08/01/2024 Refill [facility] MEDICINE [address] [place], [place] [phone] Name, MD Rock [address] [place] [address] Chronic pain syndrome Social History Tobacco Use [...] Description 03/13/2025 1:00 PM EST Clinical Support [facility] MEDICINE [address] [place] [address] Corrie Chen, SCOUT documented as of this encounter Visit Diagnoses Diagnosis Chronic pain syndrome documented in this encounter Additional Health Concerns Assessment Noted Time PHQ-9 Depression Total Score: 17 025 2:50 PM EST documented as of this encounter Care Teams Underwriting Technician Relationship Specialty Start Date End Date Name, MD Rock [address] [place] [address] PCP - General Family Medicine 07/04/15 documented as of this encounter
--- OUTSIDE RECORDS SUMMARY | 2025-01-01 14:38 | XMS_ITS | Encounter Summary ---
Author Organization [employer] Address [address] [place] [address] Care Team Providers Care General Office Clerk Name Role Phone Name, Rock DE PAZ Primary Care Provider [phone] Reason for Visit * Reason Onset Date Comments Med Refill 02/09/2024 Encounter Details Date Type Department Care Team (Late st Contact Info) Description 02/09/2024 Refill [facility] MEDICINE [address] [place], [place] [phone] Name, MD Rock [address] [place] [address] Insomnia, unspecified type Social History Tobacco Use [...] Description 03/13/2025 1:00 PM EST Clinical Support [facility] MEDICINE [address] [place] [address] Corrie Chen, SCOUT documented as of this encounter Visit Diagnoses Diagnosis Insomnia, unspecified type documented in this encounter Additional Health Concerns Assessment Noted Time PHQ-9 Depression Total Score: 12 024 2:16 PM EDT documented as of this encounter Care Teams General Office Clerk Relationship Specialty Start Date End Date Name, MD Rock [address] [place] [address] PCP - General Family Medicine 07/04/15 documented as of this encounter
--- OUTSIDE RECORDS SUMMARY | 2025-01-01 14:38 | XMS_ITS | Encounter Summary ---
Author Organization [employer] Address [address] [place] [address] [place] [address] Care Team Providers Care Operating Systems Specialist Name Role Phone NameRock MD Primary Care Provider [phone] Reason for Visit * Reason Onset Date Comments Chart Prep 12/29/2024 Encounter Details Date Type Department Care Team (Late st Contact Info) Description 12/29/2024 Telephone [facility] MEDICINE [address] [place], [place] [phone] Name, MD Rock [address] [place] [address] Chart Prep Social History Tobacco Use Types Packs/Day Years [...] encounter Miscellaneous Notes * Telephone Encounter - Kika Gardner [place] - 12/29/2024 11:11 AM EDT Chart Prep Labs: not done from 09/06/24 Images: not applicable Referrals: not applicable Vaccines due: Flu and Hep A Screenings: not applicable Overdue care gaps: SBIRT, Oral health screening, and Tobacco documented in this encounter Plan of Treatment Upcoming Encounters Date Type Department Care Team (Late st Contact Info) Description 03/13/2025 1:00 PM EST Clinical Support [facility] MEDICINE [address] [place] [address] Corrie Chen, SCOUT documented as of this encounter Visit Diagnoses Not on filedocumented in this encounter Additional Health Concerns Assessment Noted Time PHQ-9 Depression Total Score: 17 025 2:50 PM EST documented as of this encounter Care Teams Operating Systems Specialist Relationship Specialty Start Date End Date Name, MD Rock [address] [place] [address] PCP - General Family Medicine 07/04/15 documented as of this encounter
--- OUTSIDE RECORDS SUMMARY | 2025-01-01 14:38 | XMS_ITS | Encounter Summary ---
Author Organization [employer] Address [address] [place] [address] [place] [address] Care Team Providers Care Employment Counselor Name Role Phone Name, Rock DE PAZ Primary Care Provider [phone] Reason for Visit * Reason Onset Date Comments Med Refill 02/09/2024 Encounter Details Date Type Department Care Team (Late st Contact Info) Description 02/09/2024 Refill [facility] MEDICINE [address] [place], [place] [phone] Name, MD Rock [address] [place] [address] Chronic pain syndrome Social History Tobacco Use [...] Clinical Support [facility] MEDICINE [address] [place] [address] Corrie Chen, SCOUT documented as of this encounter Visit Diagnoses Diagnosis Chronic pain syndrome documented in this encounter Additional Health Concerns Assessment Noted Time PHQ-9 Depression Total Score: 12 024 2:16 PM EDT documented as of this encounter Care Teams Employment Counselor Relationship Specialty Start Date End Date Name, MD Rock [address] [place] [address] PCP - General Family Medicine 07/04/15 documented as of this encounter
--- OUTSIDE RECORDS SUMMARY | 2025-01-01 14:38 | XMS_ITS | Encounter Summary ---
Author Organization [employer] Address [address] [place] [address] 7 [place] [address] Care Team Providers Care Sales Representative Name Role Phone Name, Rock DE PAZ Primary Care Provider [phone] Reason for Visit * Reason Comments Med Refill Encounter Details Date Type Department Care Team (Late st Contact Info) Description 11/18/2022 Refill [facility] MEDICINE [address] [place] [address] [phone] Name, MD Rock [address] [place] [address] Chronic pain syndrome Social History Tobacco Use [...] 03/13/2025 1:00 PM EST Clinical Support [facility] MEDICINE [address] [place] [address] Corrie Chen, SCOUT documented as of this encounter Visit Diagnoses Diagnosis Chronic pain syndrome documented in this encounter Care Teams Sales Representative Relationship Specialty Start Date End Date Name, MD Rock [address] [place] [address] PCP - General Family Medicine 07/04/15 documented as of this encounter
--- OUTSIDE RECORDS SUMMARY | 2025-01-01 14:38 | XMS_ITS | Encounter Summary ---
Author Organization [employer] Address [address] [place] [address] Care Team Providers Care Christmas Tree Farm Crew Boss Name Role Phone Name, Rock DE PAZ Primary Care Provider [phone] Reason for Visit * Reason Onset Date Comments Med Refill 03/03/2024 Encounter Details Date Type Department Care Team (Late st Contact Info) Description 03/03/2024 Refill [facility] MEDICINE [address] [place], [place] [phone] Name, MD Rock [address] [place] [address] Chronic pain syndrome Social History Tobacco Use [...] 03/13/2025 1:00 PM EST Clinical Support [facility] MEDICINE [address] [place] [address] Corrie Chen, SCOUT documented as of this encounter Visit Diagnoses Diagnosis Chronic pain syndrome documented in this encounter Additional Health Concerns Assessment Noted Time PHQ-9 Depression Total Score: 12 024 2:16 PM EDT documented as of this encounter Care Teams Christmas Tree Farm Crew Boss Relationship Specialty Start Date End Date Name, MD Rock [address] [place] [address] PCP - General Family Medicine 07/04/15 documented as of this encounter
--- OUTSIDE RECORDS SUMMARY | 2025-01-01 14:38 | XMS_ITS | Encounter Summary ---
Author Organization [employer] Address [address] [place] [address] [place] [address] Care Team Providers Care Accounting Representative Name Role Phone Name, Rock DE PAZ Primary Care Provider [phone] Reason for Visit * Reason Onset Date Comments Med Refill 03/02/2024 Encounter Details Date Type Department Care Team (Late st Contact Info) Description 03/02/2024 Refill [facility] MEDICINE [address] [place], [place] [phone] Name, MD Rock [address] [place] [address] Social History Tobacco Use Types Packs/Day Years [...] Description 03/13/2025 1:00 PM EST Clinical Support [facility] MEDICINE [address] [place] [address] Corrie Chen RN documented as of this encounter Visit Diagnoses Not on filedocumented in this encounter Additional Health Concerns Assessment Noted Time PHQ-9 Depression Total Score: 12 024 2:16 PM EDT documented as of this encounter Care Teams Accounting Representative Relationship Specialty Start Date End Date Name, MD Rock [address] [place] [address] PCP - General Family Medicine 07/04/15 documented as of this encounter
--- OUTSIDE RECORDS SUMMARY | 2025-01-01 14:38 | XMS_ITS | Encounter Summary ---
Author Organization [employer] Address [address] [place] [address] 7 [place] [address] Care Team Providers Care Nnps Name Role Phone Name, Rock DE PAZ Primary Care Provider [phone] Reason for Visit * Reason Comments Med Refill Encounter Details Date Type Department Care Team (Late st Contact Info) Description 03/04/2023 Refill [facility] MEDICINE [address] [place] [address] Christine Doe FNP Social History Tobacco Use Types Packs/Day Years [...] Description 03/13/2025 1:00 PM EST Clinical Support [facility] MEDICINE [address] [place] [address] Corrie Chen RN documented as of this encounter Visit Diagnoses Not on filedocumented in this encounter Additional Health Concerns Assessment Noted Time PHQ-9 Depression Total Score: 21 023 10:14 AM EDT documented as of this encounter Care Teams Nnps Relationship Specialty Start Date End Date Name, MD Rock [address] [place] [address] PCP - General Family Medicine 07/04/15 documented as of this encounter
--- OUTSIDE RECORDS SUMMARY | 2025-01-01 14:38 | XMS_ITS | Encounter Summary ---
Author Organization [employer] Address [address] [place] [address] [place] [address] Care Team Providers Care Spooler Name Role Phone Name, Rock DE PAZ Primary Care Provider Reason for Visit * Reason Comments Med Refill Encounter Details Date Type Department Care Team ([facility] st Contact Info) Description 09/11/2024 Refill [facility] MEDICINE [address] [place], [place] [phone] Name, MD Rock [address] [place] [address] Hypophosphatemia Social History Tobacco Use Types Packs/Day [...] Description 03/13/2025 1:00 PM EST Clinical Support [facility] MEDICINE [address] [place] [address] Corire Chen, RN documented as of this encounter Visit Diagnoses Diagnosis Hypophosphatemia Disorders of phosphorus metabolism documented in this encounter Additional Health Concerns Assessment Noted Time PHQ-9 Depression Total Score: 17 025 2:50 PM EST documented as of this encounter Care Teams Spooler Relationship Specialty Start Date End Date Name, MD Rock [address] [place] [address] PCP - General Family Medicine 07/04/15 documented as of this encounter
--- OUTSIDE RECORDS SUMMARY | 2025-01-01 14:38 | XMS_ITS | Encounter Summary ---
Author Organization [employer] Address [address] [place] [address] Care Team Providers Care Butter Liquefier Name Role Phone Name, Rock DE PAZ Primary Care Provider [phone] Reason for Visit * Reason Onset Date Comments Med Refill 09/10/2024 Encounter Details Date Type Department Care Team (Late st Contact Info) Description 09/10/2024 Refill [facility] MEDICINE [address] [place], [place] [phone] Name, MD Rock [address] [place] [address] Chronic pain syndrome Social History Tobacco Use [...] Description 03/13/2025 1:00 PM EST Clinical Support [facility] MEDICINE [address] [place] [address] Corrie Chen, SCOUT documented as of this encounter Visit Diagnoses Diagnosis Chronic pain syndrome documented in this encounter Additional Health Concerns Assessment Noted Time PHQ-9 Depression Total Score: 17 025 2:50 PM EST documented as of this encounter Care Teams Butter Liquefier Relationship Specialty Start Date End Date Name, MD Rock [address] [place] [address] PCP - General Family Medicine 07/04/15 documented as of this encounter
--- OUTSIDE RECORDS SUMMARY | 2025-01-01 14:38 | XMS_ITS | Clinical Summary ---
Author Organization [employer] Address [address] [place] [address] [address] [place] [address] Care Team Providers Care Investor Name Role Phone Name, Rock DE PAZ Primary Care Provider [phone] Allergies Active Allergy Reactions Criticality Noted Date [...] TO AFFECTED AREA TWICE DAILY 100 g 024 Active omeprazole (PriLOSEC) [address] nickoIndzoran ions:Chronic pain syndrome,Insom shital, unspecified type TAKE 1 CAPSULE BY MOUTH TWICE DAILY BEFORE MEAL(S) 180 capsule 1 024 Active hydroCHLOROthi azide (HYDRODiuril) 25 MG tablet [...] not swallow. 1 each 025 2025 Active fluticasone (Flonase) 50 MCG/ACT nasal sprayIndicatio ns:Rhinorrhea SPRAY 2 SPRAYS INTO EACH NOSTRIL EVER DAY. SHAKE GENTLY. BEFORE FIRST USE, PRIME PUMP. AFTER USE, CLEAN TIP AND REPLACE CAP. 16 g 025 Active ezetimibe (Zetia) 10 MG tabletIndicati ons:High cholesterol,St atin intolerance TAKE 1 TABLET BY MOUTH EVERY DAY 90 tablet 1 025 Active loratadine (Claritin) 10 MG tabletIndicati ons:Rhinorrhea TAKE 1 TABLET BY MOUTH EVERY MORNING 90 tablet 1 025 Active OXcarbazepine (Trileptal) 150 MG tabletIndicati ons:Hypophosph atemia Take 1 tablet by mouth twice daily 60 tablet 2 025 Active venlafaxine XR (Effexor XR) 75 MG 24 hr capsuleIndicat ions:Chronic pain syndrome,Insom shital, unspecified type TAKE 1 CAPSULE BY MOUTH ONCE DAILY WITH FOOD. TAKE WITH 150MG DOSE FOR A TOTAL OF 225MG. 90 capsule 025 Active traMADol (Ultram) 50 MG tabletIndicati ons:Chronic pain syndrome Take 1 tablet (50 mg) by mouth every 8 (eight) hours if needed for severe pain for up to 28 days. Do not start before December 15, 2024. 84 tablet 025 2024 Active zolpidem (Ambien) 10 MG tabletIndicati ons:Insomnia, unspecified type TAKE 1 TABLET BY MOUTH ONCE DAILY AT BEDTIME NEEDED FOR SLEEP 28 tablet 025 Active busPIRone (Buspar) 30 MG tabletIndicati ons:Insomnia, unspecified type TAKE 1 TABLET BY MOUTH TWICE DAILY 60 tablet 2 025 Active carisoprodol (Soma) 350 MG tabletIndicati ons:Chronic pain syndrome TAKE 1 TABLET BY MOUTH ONCE DAILY IN THE MORNING,AT NOON, IN THE EVENING AND AT BEDTIME FOR MUSCLE SPASM FOR UP TO 23 DAYS 90 tablet 025 Active venlafaxine XR (Effexor XR) 150 MG 24 hr capsuleIndicat ions:Hypophosp hatemia TAKE 1 CAPSULE BY MOUTH ONCE DAILY. TAKE WITH 75MG DOSE FOR A TOTAL DOSE OF 225MG DAILY. 90 capsule 1 025 Active busPIRone (Buspar) 30 MG tabletIndicati ons:Insomnia, unspecified type TAKE 1 TABLET BY MOUTH TWICE DAILY 60 tablet 2 025 2024 Discontinued(R eorder (will not trigger notification to Pharmacy)) venlafaxine XR (Effexor XR) 150 MG 24 hr capsuleIndicat ions:Hypophosp hatemia TAKE 1 CAPSULE BY MOUTH ONCE DAILY. TAKE WITH 75MG DOSE FOR A TOTAL DOSE OF 225MG DAILY. 90 capsule 1 025 2024 Discontinued(R eorder (will not trigger notification to Pharmacy)) carisoprodol (Soma) 350 MG tabletIndicati ons:Chronic pain syndrome TAKE 1 TABLET BY MOUTH ONCE DAILY IN THE MORNING,AT NOON, IN THE EVENING AND AT BEDTIME FOR MUSCLE SPASM FOR UP TO 23 DAYS Do not start before November 20, 2024. 90 tablet 025 2024 Discontinued(R eorder (will not trigger notification to Pharmacy)) traMADol (Ultram) 50 MG tabletIndicati ons:Chronic pain syndrome Take 1 tablet (50 mg) by mouth every 8 (eight) hours if needed for severe pain. 84 tablet 025 2024 Discontinued(R eorder (will [...] notification to Pharmacy)) venlafaxine XR (Effexor XR) 150 MG 24 hr capsuleIndicat ions:Hypophosp hatemia TAKE 1 CAPSULE BY MOUTH ONCE DAILY. TAKE WITH 75MG DOSE FOR A TOTAL DOSE OF 225MG DAILY. 90 capsule 1 025 2024 Discontinued(R eorder (will not trigger notification to Pharmacy)) Active Problems Problem Noted Date Diagnosed Date Long-term current use of opiate analgesic 2024 Bariatric surgery status 09/06/2024 Hypertension 05/17/2024 Hx of papillary thyroid carcinoma 02/11/2023 02/11/2023 Fear of flying 06/08/2022 Ventral hernia 06/08/2022 Occult blood in stools 06/08/2022 Mild intermittent asthma without complication Complex partial seizure with impairment of consc iousness 06/12/2021 Carcinoma of thyroid 09/11/2020 Gastroesophageal reflux disease 09/11/2020 Anxiety 09/11/2020 Hypercholesterolemia 09/11/2020 Primary osteoarthritis of both knees 11/23/2016 Osteoporosis 06/16/2016 Rheumatoid factor positive 12/05/2015 Degeneration of lumbosacral [...] back pain 09/11/2020 024 Hyperthyroidism 09/11/2020 07/27/2023 Depressive disorder 09/11/2020 12/06/19 25 Neck pain 11/30/2017 07/27/2023 Osteoarthritis 12/05/2015 12/05/2024 Drug therapy 09/06/2015 02/11/2023 07/27/2023 Hernia 02/16/2013 [...] Encounters Date Type Department Care Team Description 2025 2:30 PM EDT Office Visit [facility] [address] [place] [phone] Rock Rodrigues MD Arrived 2025 Travel 2025 Orders Only [facility] [place] [address] Rock Rodrigues MD 12/29/2024 Refill [facility] [place] [address] Rock Rodrigues MD Insomnia, unspecified type; Chronic pain syndrome; Hypophosphatemia 12/29/2024 Telephone [facility] [place] [address] Rock Rodrigues MD Chart Prep 12/25/2024 Travel 12/18/2024 Refill [facility] [place] [address] Shavon Fletcher MD Insomnia, unspecified type 12/15/2024 Refill [facility] [place] [address] Rock Rodrigues MD Hypophosphatemia 12/12/2024 1:00 PM EDT Clinical Support [facility] [place] [address] Corrie Chen, SCOUT Long-term current use of opiate analgesic (Primary Dx) 12/12/2024 Refill [facility] [place] [address] Corrie Chen, pest control service sales agent pain syndrome 12/12/2024 Travel 12/07/2024 Refill [facility] [place] [address] Rock Rodrigues MD Chronic pain syndrome 12/05/2024 2:00 PM EDT Office Visit [facility] [place] [address] Fany Pearson MD Chronic low back pain, unspecified back pain laterality, unspecified whether sciatica present (Primary Dx); Primary osteoarthritis of both knees 12/05/2024 Travel 12/01/2024 11:30 AM EDT Office Visit [facility] [place] [address] Tiffany Fairbanks MD Seborrheic keratosis (Primary Dx); Benign nevus 12/01/2024 Refill [facility] [address] [place] [address] Name, MD Rock High cholesterol; Statin intolerance 12/01/2024 Travel 11/26/2024 Refill [facility] [address] [place] [address] NameRock MD High cholesterol; Statin intolerance 11/24/2024 Travel 11/20/2024 Refill [facility] [address] [place] [address] Name, MD Rock Insomnia, unspecified type 11/14/2024 Refill [facility] [address] [place] [address] NameRock MD Chronic pain syndrome 11/14/2024 Refill [facility] [address] [place] [address] NameRock MD Chronic pain syndrome; Insomnia, unspecified type 11/14/2024 Telephone [facility] [address] [place] [address] Name, MD Rock Referral 11/07/2024 Refill [facility] [address] [place] [address] Name, MD Rock Hypophosphatemia 11/07/2024 Telephone [facility] [address] [place] [address] Rock Rodrigues MD Lab Orders 10/23/2024 Refill [facility] [address] [place] [address] Frank Vallejo MD Chronic pain syndrome; Insomnia, unspecified type 10/23/2024 Refill [facility] [address] [place] [address] NameRock MD Insomnia, unspecified type 10/09/2024 Refill [facility] [address] [place] [address] NameRock MD Chronic pain syndrome 10/04/2024 Refill [facility] [address] [place] [address] NameRock MD Chronic pain syndrome from Last 3 Months Immunizations Immunization Administration Dates Next Due INFLUENZA VACCINE QUADRIVALE NT RECOMBINANT PRESERVATIVE FREE RIV4 01/20/2020,02/09/2019 Influenza injectable quadriv alent preservative free 02/15/2023,01/07/2022,02/17/2021,01/15,01/28/2017,01/22/2016 Influenza, IIV3, injectable 01/07/2015,1 ,02/16/2013,01/10,01/24/2009 Influenza, Recombinant, inje ctable, preservative free 02/01/2024 Novel [id number], preservative-free 04/03/2009 Pfizer Covid-19 Vaccine 12+ 03/29/2023 [...] Sign Reading Time Taken Comments Blood Pressure 134/78 2025 2:33 PM EDT Pulse 69 2025 2:33 PM EDT Temperature 36.1 C (96.9 F) 2025 2:33 PM EDT Respiratory Rate 18 2025 2:33 PM EDT Oxygen Saturation 98% 2025 2:33 PM EDT Inhaled Oxygen Concentration - - Weight 88 kg (194 lb) 2025 2:33 PM EDT Height 170.2 cm (5' 7 ) 2025 2:33 PM EDT Body Mass Index 30.38 2025 2:33 PM EDT Plan of Treatment Upcoming Encounters Date Type Department Care Team (Late st Contact Info) Description 03/13/2025 1:00 PM EST Clinical Support [address] [address] Corrie Chen, RN Health Maintenance Due Date Last Done Comments CT Colonography 1960 FIT DNA/Cologuard 1960 FIT 1960 FOBT 1960 Sigmoidoscopy 1960 Alcohol/Substance Use Screening 1973 Hepatitis A Vaccines (1 of 2 - Risk 2-dose series) 01/02/1980 Depression Monitoring 11/14/2024 05/17/2024, 025 Influenza Vaccine (#1) 2024 , 02/15/2023, 01/07/2022, Additional history exists SDOH Screening 05/17/2025 05/17/2024 Disability Screening 09/06/2025 09/06/2024 DTaP/Tdap/Td Vaccines (3 - Td or Tdap) 09/24/2025 09/25/2015, 10/02/2008 Tobacco Screening 12/05/2025 12/05/2024 Mammogram 02/03/2026 02/04/2024, 12/26, 01/20/2022, Additional history [...] Completed 02/01/2024, 07/2022, 01/19/2022, Additional history exists HIB Vaccines Aged Out No longer eligi ble based on patient's age to complete this topic HPV Vaccines Aged Out No longer eligi ble based on patient's age to complete this topic Hepatitis B Vaccines Discontinued IPV Vaccines Aged Out No longer eligi ble based on patient's age to complete this topic Meningococcal B Vaccine Aged Out No l onger eligible based on patient's age to complete [...] Procedure Name Priority Date/Time Associated Diagnosis Comments HOLD LAVENDER - POSSIBLE HEMATOLOGY Routine 2025 12:39 PM EDT IRON AND TOTAL IRON BINDING CAPACITY Routine 2025 12:39 PM EDT Hypertension, unspecified type Bariatric surgery status High cholesterol Statin intolerance PTH, INTACT WITHOUT CALCIUM Routine 2025 12:39 PM EDT Hypertension, unspecified type Bariatric surgery status High cholesterol Statin intolerance COMPREHENSIVE METABOLIC PANEL Routine 2025 12:39 PM EDT Hypertension, unspecified type Bariatric surgery status High cholesterol Statin intolerance CBC WITH AUTO DIFFERENTIAL Routine 2025 12:39 PM EDT Hypertension, unspecified type Bariatric surgery status High cholesterol Statin intolerance POCT PAULETTE-14 URINE DRUG SCREEN Routine 12/12/2024 1:21 PM EDT Long-term current use of opiate analgesic PHENCYCLIDINE SCREEN, URINE Routine 12/12/2024 12:00 AM EDT Long-term current use of opiate analgesic METHADONE SCREEN, URINE Routine 12/12/2024 12:00 AM EDT Long-term current use of opiate analgesic BI MAMMOGRAM SCREENING TOMOSYNTHESIS BILATERAL Routine 02/04/2024 [...] Recently Relevant to Health Maintenance Results * Hold Lavender - Possible Hematology (2025 12:39 PM EDT) Pathologist [facility] Hold Lavender - Possible Hematololgy SEE NOTE [facility] Comment:Specimen will be hel d untested for 8 hours. Call Hematologyif testing is desired. 2025 12:3 9 PM EDT 2025 2:09 PM EDT us Rock Name MD HISTORICAL/NON ORDERABLE LABS Fi nal Result [facility] [address] [place] [address] [phone] * (ABNORMAL) CBC auto differential (2025 12:39 PM EDT) [facility] White Blood Count 5.6 4.8 - 10.8 X10*3/uL [facility] Red Blood Count 4.43 4.20 - 5.50 X10*6/uL [facility] Hemoglobin 13.7 12.0 - 16.0 g/dl [facility] Hematocrit 40.2 37.0 - 47.0 % [facility] Mean Corpuscular Volume 90.7 80.0 - 98.0 fL [facility] Mean Corpuscular Hemoglobin 30.9 27.0 - 33.0 pg [facility] Mean Corpuscular HGB Conc 34.1 31.0 - 35.0 g/dl [facility] Red Cell Distribution Width 12.2 11.0 - 16.0 % [facility] Platelet Count 270 160 - 400 X10*3/uL [facility] Mean Platelet Volume 12.4(H) 9.4 - 12.3 fL [facility] Neutrophils Percent Auto 48.6 45 - 73 % [facility] Imm Gran Pct Auto 0.4 0.0 - 0.4 % [facility] Lymphocytes Percent Auto 42.6(H) 20 - 40 % [facility] Monocytes Percent Auto 5.9 2 - 11 % [facility] Eosinophils Percent Auto 1.6 0 - 4 % [facility] Basophils Percent Auto 0.9 0 - 2 % [facility] NRBC Pct Auto 0.0 0.0 - 0.2 /100WBC [facility] Neutrophils Absolute Auto 2.8 2.0 - 8.3 x10*3/uL [facility] Imm Gran Abs Auto 0.02 0.00 - 0.03 X10*3/uL [facility] Lymphocytes Absolute Auto 2.4 1.2 - 4.9 X10*3/uL [facility] Monocytes Absolute Auto 0.3 0.1 - 1.2 X10*3/uL [facility] Eosinophils Absolute Auto 0.1 0.0 - 0.4 X10*3/uL [facility] Basophils Absolute Auto 0.1 0.0 - 0.2 X10*3/uL [facility] NRBC Abs Auto 0.000 0.0 - 0.012 X10*3/uL [facility] Blood Venous blood specimen / Unknown 2025 12:39 PM EDT 2025 12:39 PM EDT us Rock Rodrigues MD LAB BLOOD ORDERABLES Final Resul t Performing Organization Address City/[facility]/ZIP Co de Phone Number [facility] [address] [place] [phone] * PTH, Intact Without Calcium (2025 12:39 PM EDT) Parathyroid Hormone, Intact 58.8 8.7 - 77.1 pg/mL [facility] Blood Venous blood specimen / Unknown 2025 12:39 PM EDT 2025 12:39 PM EDT us Rock Rodrigues MD LAB BLOOD ORDERABLES Final Resul t Performing Organization Address City/[facility]/ZIP Co de Phone Number [facility] [address] [place] [address] [phone] * (ABNORMAL) POCT PAULETTE-14 Urine Drug Screen (12/12/2024 1:21 PM EDT) Pathologist [facility] THC Positive Negative Cocaine Screen, Urine Negative Negative Opiate Screen, Urine Negative Negative Methamphetamine Screen Urine Negative Negative Amphetamine Screen, Urine Negative Negative Benzodiazepines Screen, Urine Negative Negative Barbiturate Screen, Urine Negative Negative Methadone Screen, Urine Positive(A) Negative Buprenophine Screen, Urine Negative Negative TCA, Urine Positive Negative MDMA Urine Negative Negative ng/mL Oxycodone Screen, Urine Negative Negative Phencyclidine (PCP), Urine Positive(A) Negative Propoxyphene, Urine Negative Negative Fentanyl, Urine Negative Negative Urine Urine specimen obtained by clean catch procedure / Unknown 12/12/2024 1:21 PM EDT Narrative Corrie Chen RN - 12/12/2024 1:21 PM EDT UTOX cup Lot#[id number] Exp. 01/30/26 Internal Pass Control us Rock Rodrigues MD POINT OF CARE TEST ENTER/EDIT OR DERABLES Final Result * Phencyclidine Screen, Urine (12/12/2024 12:00 AM EDT) [facility] Phencyclidine Screen Urine Not Detected Not Detect [facility] Comment:Phencyclidine cut-of f is 25 ng/mL.Positive results are unconfirmed and should not be used fornon-medical purposes. Urine 12/12/2024 12/12/2024 us Rock Rodrigues MD LAB URINE ORDERABLES Final Resul t [facility] [address] [place] [phone] * Drug Monitoring, Methadone Metabolite, Screen, Urine (12/12/2024 12:00 AM EDT) [facility] Methadone Screen, Urine Not Detected Not Detect ng/mL [facility] Comment:Methadone cut-off is 300 ng/mL.Positive results are unconfirmed and should not be used fornon-medical purposes. Urine 12/12/2024 12/12/2024 us Rock Rodrigues MD LAB URINE ORDERABLES Final Resul t [facility] [address] [place] [address] [phone] * BI Mammogram Screening Tomosynthesis Bilateral (02/04/2024 1:40 PM EDT) Anatomical Region Laterality Modality Breast Bilateral Mammography 02/04/2024 1:40 PM EDT Narrative 02/17/2024 9:45 PM EDT [address] [place] [address] Mammography Report Signed Patient: Coleen Tyler MR#: [id number] : 1960 Acct:[id number] Age/Sex: 64 / F ADM Date: 02/04/24 Loc: HO.MAMMO Attending Dr: Rock Rodrigues MD Ordering Physician: Rock Rodrigues MD Results: 1Negative Date of Service: 02/04/24 Follow Up: 1 Year From Orig ina Mammogram Procedure(s): MM tomosynthesis screening BI Accession Number(s): [id number] cc: Rock Rodrigues MD EXAMINATION: MM SCREENING [...] DO 02/17/2024 09:42 PM EDT Dictated By: Tyminski,Kristal DO Signed By: <Electronically signed by Kristal Santos DO in OV> 02/17/242141 DD/ 134 TD/TT: 02/04/24 1358 Drug Enforcement Agent: Procedure Note Donotangieinterpreter, Image - 02/17/2024 [facility] [address] [place] [address] Mammography Report Signed Patient: JaysonDianaMR#: [id number] : 1960cct:[id number] Age/Sex: 64 / FADM Date: 02/04/24 Loc: HO.MAMMO Attending Dr: Rock Rodrigues MD Ordering Physician: Rock Rodrigues MDResults: 1Negative Date of Service: 02/04/24Follow Up: 1 Year From Orig inal Mammogram Procedure(s): MM tomosynthesis screening BI Accession Number(s): [id number] cc: Rock Rodrigues MD EXAMINATION: MM SCREENING [...] signed by Kristal Santos DO in OV> 02/17/242141 DD/ 1340 TD/TT: 02/04/24 1358 Drug Enforcement Agent: us Rock Name IMG BI PROCEDURES Edited Result - Final * (ABNORMAL) Lipid Panel, Standard (12/07/2023 11:55 AM EDT) Triglycerides 236(H) <150 mg/dL [facility] Comment:Desirable Triglyceri de: less than 150 mg/dLBorderline High Triglyceride 150-199 mg/dLHigh Triglyceride: 200-499 mg/dLVery High Triglyceride: greater than or equal to 5OO mg/dL Cholesterol 300(H) <200 mg/dL [facility] Comment:Desirable Cholestero l: less than 200 mg/dLBorderline High Cholesterol: 200-239 mg/dLHigh Cholesterol: greater than 239 mg/dL LDL Cholesterol Calculated 214(H) <100 mg/dL [facility] Comment:Desirable LDL: less than 100 mg/dLNear Optimal/Above Optimal LDL: 110- 129 mg/dLBorderline High LDL: 130-159 mg/dLHigh LDL: 160-189 mg/dLVery High LDL: greater than or equal to 190 mg/dL HDL Cholesterol 39(L) >40 mg/dL [facility] Comment:Desirable HDL: great er than 40 mg/dL Note: This HDL assay may give artificially low results in patients with liver disease. 12/07/2023 11:5 5 AM EDT 12/07/2023 11:55 AM EDT Generic External Data Provider LAB BLOOD ORDERAB LES Final Result [facility] [address] [place] [phone] * Colonoscopy (11/22/2023) Pathologist [facility] Colonoscopy Normal Normal us Rock Name HEALTH MAINTENANCE Final Result * THINPREP TIS PAP AND HPV mRNA E6/E7 WITH REFLEX TO HPV 16,18/45 (01/07/2022 3:18 PM EDT) Pathologist [facility] Clinical Information: None given [facility] COMMENT SEE COMMENT [facility] Comment: EXPLANATORY NOTE: The Pap is a screening test for cervical cancer. It is not a diagnostic test and is subject to false negative and false positive results. It is most reliable when a satisfactory sample, regularly obtained, is submitted with relevant clinical findings and history, and when the Pap result is evaluated along with historic and current clinical information. COMMENT: This Pap test has been evaluated with computer assisted technology. [facility] Checking Clerk: SEE COMMENT [facility] Comment: VICTOR MANUEL SPAULDING(ASCP) CT screening location: [place] [address] HPV nRNA E6/E7 Not Detected Not Detected [facility] Comment: Methodology: Scientific Affairs Manager-Mediated Amplification This assay detects E6/E7 viral messenger RNA (mRNA) from 14 high-risk HPV types (16,18,31,33,35,39,45,51,52,56,58,59,66,68). Cervical sources are required for HPV testing. If a vaginal source from a patient who has had a total hysterectomy with removal of cervix was submitted, please contact the testing laboratory for alternative testing options. For additional information, please refer to http://education.[employer])/faq/LQK882h4 (This link if provided for information/ educational purposes only.) Interpretation/Res ult: SEE COMMENT [facility] Comment: Negative for intraepithelial lesion or malignancy. Atrophic pattern; predominantly parabasal cells LMP: MENOPAUSE X 48 [facility] Prev. BX: NONE GIVEN [facility] Prev. PAP: YES [facility] SOURCE: None given [facility] Statement Of Adequacy: SATISFACTORY FOR EVALUATION [facility] 01/07/2022 3:18 PM EDT us Tisha Veneags CNM LAB PATHOLOGY ORDERABLES Final Result [facility] [address] [place] [address], * HEPATITIS C AB W/REFL TO HCV RNA, QN, PCR (12/23/2021 2:35 PM EDT) HEPATITIS C ANTIBODY NON-REACT MARK NON-REACT MARK [facility] INDEX 0.12 <1.00 [facility] Comment: HCV antibody was non-reactive. There is no laboratory evidence of HCV infection. In most cases, no further action is required. However, if recent HCV exposure is suspected, a test for HCV RNA (test code 00145) is suggested. For additional information please refer to http://[facility].[employer]faq/DLV97m8 (This link is being provided for informational/ educational purposes only.) 12/23/2021 2:35 PM EDT Rock Rodrigues MD HISTORICAL/NON ORDERABLE LABS Fi nal Result Performing Organization Address [facility] Phone Number [facility] [address] * HIV 1/2 ANTIGEN/ANTIBODY,FOURTH GENERATION W/RFL (02/17/2021 3:50 PM EDT) HIV-1/2 ANTIGEN AND ANTIBODIES, 4TH GENERATION W/ REFLEX NON-REACT MARK NON-REACT MARK [facility] Comment: HIV-1 antigen and HIV-1/HIV-2 antibodies were not detected. There is no laboratory evidence of HIV infection. PLEASE NOTE: This information has been disclosed to you from records whose confidentiality may be protected by state law. If your state requires such protection, then the state law prohibits you from making any further disclosure of the information without the specific written consent of the person to whom it pertains, or as otherwise permitted by law. A general authorization for the release of medical or other information is NOT sufficient for this purpose. For additional information please refer to http://[facility].[employer])/faq/RLQ753 (This link is being provided for informational/ educational purposes only.) The performance of this assay has not been clinically validated in patients less than 2 years old. 02/17/2021 3:50 PM EDT us Rock Rodrigues MD LAB BLOOD ORDERABLES Final Resul t Performing Organization Address [facility] Co de Phone Number [facility] [address] from Last 3 Months or Most Recently Relevant to Health Maintenance Insurance MEDICARE [facility] MEDICARE REPLACEMENT Care Teams Investor Relationship Specialty Start Date End Date Name, MD Rock [address] [place] [phone] PCP - General Family Medicine 07/04/15
--- OUTSIDE RECORDS SUMMARY | 2025-01-01 14:38 | XMS_ITS | Encounter Summary ---
Author Organization [email or web address] Address [address] [place] [address] Care Team Providers Care Crystal Attacher Name Role Phone Name, Rock DE PAZ Primary Care Provider [phone] Reason for Visit * Reason Onset Date Comments Med Refill 03/02/2024 Encounter Details Date Type Department Care Team (Late st Contact Info) Description 03/02/2024 Refill [facility] [address] [place], [place] [phone] Name, MD Rock [address] [place] [address] Chronic pain syndrome Social History Tobacco Use [...] Description 03/13/2025 1:00 PM EST Clinical Support [facility] [address] [place] [address] Corrie Chen, SCOUT documented as of this encounter Visit Diagnoses Diagnosis Chronic pain syndrome documented in this encounter Additional Health Concerns Assessment Noted Time PHQ-9 Depression Total Score: 12 024 2:16 PM EDT documented as of this encounter Care Teams Crystal Attacher Relationship Specialty Start Date End Date Name, MD Rock [address] [place] [address] PCP - General Family Medicine 07/04/15 documented as of this encounter
--- OUTSIDE RECORDS SUMMARY | 2025-01-01 14:39 | XMS_ITS | Encounter Summary ---
Author Organization [employer] Address [address] [place] [address] Care Team Providers Care Microbiological Analyst Name Role Phone Name, Rock DE PAZ Primary Care Provider [phone] Reason for Visit * Reason Onset Date Comments Med Refill 12/29/2024 Encounter Details Date Type Department Care Team (Late st Contact Info) Description 12/29/2024 Refill [facility] MED[facility]INE [address] [place], [place] [phone] Name, MD Rock [address] [place] [address] Insomnia, unspecified type; Chronic pain syndrome; Hypophosphatemia Social History Tobacco Use Types Packs/Day [...] Description 03/13/2025 1:00 PM EST Clinical Support [facility] [address] [place] [address] Corrie Chen RN documented as of this encounter Visit Diagnoses Diagnosis Insomnia, unspecified type Chronic pain syndrome Hypophosphatemia Disorders of phosphorus metabolism documented in this encounter Additional Health Concerns Assessment Noted Time PHQ-9 Depression Total Score: 17 025 2:50 PM EST documented as of this encounter Care Teams Microbiological Analyst Relationship Specialty Start Date End Date Name, MD Rock [address] [place] [address] PCP - General Family Medicine 07/04/15 documented as of this encounter
--- OUTSIDE RECORDS SUMMARY | 2025-01-01 14:39 | XMS_ITS | Encounter Summary ---
Author Organization [email or web address] Address [address] [place] [address] 7 [place] [address] Care Team Providers Care Anesthesiology Tech Name Role Phone Name, Rock DE PAZ Primary Care Provider [phone] Encounter Details Date Type Department Care Team ([facility] st Contact Info) Description 2025 Orders Only [facility] MED[facility]INE [address] [place], [place] [phone] Name, MD Rock [address] [place] [address] Social History Tobacco Use Types Packs/Day Years [...] Description 03/13/2025 1:00 PM EST Clinical Support [facility] [address] [place] [address] Corrie Chen RN documented as of this encounter Procedures Procedure Name Priority Date/Time Associated Diagnosis Comments HOLD LAVENDER - POSSIBLE HEMATOLOGY Routine 2025 12:39 PM EDT documented in this encounter Results * Hold Lavender - Possible Hematology (2025 12:39 PM EDT) Hold Lavender - Possible Hematololgy SEE NOTE [facility] Comment:Specimen will be hel d untested for 8 hours. Call Hematologyif testing is desired. 2025 12:3 9 PM EDT 2025 2:09 PM EDT us Rockedward Rodrigues MD HISTORICAL/NON ORDERABLE LABS Fi nal Result [facility] [address] [place] [address] [phone] documented in this encounter Visit Diagnoses Not on filedocumented in this encounter Additional Health Concerns Assessment Noted Time PHQ-9 Depression Total Score: 17 025 2:50 PM EST documented as of this encounter Care Teams Anesthesiology Tech Relationship Specialty Start Date End Date Name, MD Rock [address] [place] [address] PCP - General Family Medicine 07/04/15 documented as of this encounter
[2025-01-01 14:50] LABS: Folate 9.2 ng/mL (> or = 4.0); Vitamin B12 439 pg/mL (200-900)
[2025-01-01 14:56] LABS: Ferritin 17 ng/mL (10-250)
[2025-01-01 15:00] LABS: Free T4 (Free Thyroxine) 1.05 ng/dL (0.71-1.85); Thyroid Stimulating Hormone 1.72 uIU/mL (0.32-4.0)
[2025-01-05 08:18] LABS: ~Hepatitis A Antibody IgG 0.47 S/CO (0.00-0.99)
[2025-01-06 21:14] LABS: NTXCreaRU 46 mg/dL (20-275)
== END 2025-01-01 12:16 | disposition home or self-care (01) ==
LOC: HO.LAB 12:15
PROVIDERS: Internal Medicine Endocrinology, Diabetes & Metabolism; Student in an Organized Health Care Education/Training Program; PCP Internal Medicine Geriatric Medicine; Visit Provider Internal Medicine Geriatric Medicine
DX: E89.0 Postprocedural hypothyroidism (principal); I10 Essential (primary) hypertension; M81.0 Age-related osteoporosis without current pathological fracture; E78.00 Pure hypercholesterolemia, unspecified; M17.0 Bilateral primary osteoarthritis of knee; Z78.9 Other specified health status; Z98.84 Bariatric surgery status
CPT/HCPCS: 36415; 80053; 82306; 82523; 82607; 82728; 82746; 83540; 83970; 84425; 84439; 84443; 84630; 85025; 86708

== ENCOUNTER 2025-01-11 12:46 | Outpatient (REF) | payer MEDICARE, MEDICAID, SELFPAY ==
--- OUTSIDE RECORDS SUMMARY | 2025-01-11 14:50 | XMS_ITS | Encounter Summary ---
Author Organization [employer] Address [address] [place] [address] Care Team Providers Care Purse Maker Name Role Phone Name, Rock DE PAZ Primary Care Provider [phone] Reason for Visit * Reason Comments Med Refill Encounter Details Date Type Department Care Team ([facility] Contact Info) Description 09/21/2022 Refill [facility] MEDICINE [address] [place] [address] Name, MD Rock [address] [place] [address] Insomnia, unspecified type; Pain Social History Tobacco [...] Upcoming Encounters Date Type Department Care Team ([facility] Contact Info) Description 03/13/2025 1:00 PM EST Clinical Support [facility] [address] [place] [address] Corrie Chen, RN documented as of this encounter Visit Diagnoses Diagnosis Insomnia, unspecified type Pain Generalized pain documented in this encounter Care Teams Purse Maker Relationship Specialty Start Date End Date Name, MD Rock [address] [place] [address] PCP - General Family Medicine 07/04/15 documented as of this encounter
--- OUTSIDE RECORDS SUMMARY | 2025-01-11 14:50 | XMS_ITS | Encounter Summary ---
Author Organization [employer] Address [address] [place] [address] 7 [place] [address] Care Team Providers Care Pellet Mill Operator Name Role Phone Name, Rock DE PAZ Primary Care Provider [phone] Encounter Details Date Type Department Care Team (Late st Contact Info) Description 11/24/2023 Abstract [facility] MEDICINE [address] [place], [place] [phone] Name, MD Rock [address] [place] [address] Social History Tobacco Use Types Packs/Day Years [...] Description 03/13/2025 1:00 PM EST Clinical Support [facility]ICINE [address] [place] [address] Corrie Chen RN documented as of this [...] documented as of this encounter Care Teams Pellet Mill Operator Relationship Specialty Start Date End Date Name, MD Rock [address] [place] [address] PCP - General Family Medicine 07/04/15 documented as of this encounter
--- OUTSIDE RECORDS SUMMARY | 2025-01-11 14:50 | XMS_ITS | Encounter Summary ---
Author Organization [employer] Address [address] [place] [address] 7 [place] [address] Care Team Providers Care Kitchen And Bath Designer Name Role Phone Name, Rock DE PAZ Primary Care Provider [phone] Reason for Visit * Reason Comments Med Refill Encounter Details Date Type Department Care Team ([facility] st Contact Info) Description 04/26/2023 Refill [facility] MEDICINE [address] [place], [place] [phone] Name, MD Rock [address] [place] [address] Insomnia, unspecified type Social History Tobacco Use [...] Description 03/13/2025 1:00 PM EST Clinical Support [facility]INE [address] [place] [address] Corrie Chen RN documented as of this encounter Visit Diagnoses Diagnosis Insomnia, unspecified type documented in this encounter Additional Health Concerns Assessment Noted Time PHQ-9 Depression Total Score: 21 023 10:14 AM EDT documented as of this encounter Care Teams Kitchen And Bath Designer Relationship Specialty Start Date End Date Name, MD Rock [address] [place] [address] PCP - General Family Medicine 07/04/15 documented as of this encounter
--- OUTSIDE RECORDS SUMMARY | 2025-01-11 14:50 | XMS_ITS | Encounter Summary ---
Author Organization [employer] Address [address] [place] [address] Care Team Providers Care Slackline Operator Name Role Phone Name, Rock DE PAZ Primary Care Provider [phone] Reason for Visit * Reason Onset Date Comments Med Refill 11/26/2024 Encounter Details Date Type Department Care Team (Late st Contact Info) Description 11/26/2024 Refill [facility] [address] [place], [place] [phone] Name, MD Rock [address] [place] [address] High cholesterol; Statin intolerance Social History Tobacco [...] Description 03/13/2025 1:00 PM EST Clinical Support [facility] [address] [place] [address] Corrie Chen, SCOUT documented as of this encounter Visit Diagnoses Diagnosis High cholesterol Pure hypercholesterolemia Statin intolerance documented in this encounter Additional Health Concerns Assessment Noted Time PHQ-9 Depression Total Score: 17 025 2:50 PM EST documented as of this encounter Care Teams Slackline Operator Relationship Specialty Start Date End Date Name, MD Rock [address] [place] [address] PCP - General Family Medicine 07/04/15 documented as of this encounter
--- OUTSIDE RECORDS SUMMARY | 2025-01-11 14:50 | XMS_ITS | Encounter Summary ---
Author Organization [employer] Address [address] [place] [address] Care Team Providers Care Automatic Machine Attendant Name Role Phone Name, Rock DE PAZ Primary Care Provider [phone] Encounter Details Date Type Department Care Team ([facility] Contact Info) Description 09/14/2022 Abstract [facility] MEDICINE [address] [place] [address] Name, MD Rock [address] [place] [address] Social History Tobacco Use Types Packs/Day Years [...] Description 03/13/2025 1:00 PM EST Clinical Support [address] [address] April, Corrie, RN documented as of this [...] on filedocumented in this encounter Care Teams Automatic Machine Attendant Relationship Specialty Start Date End Date Name, MD Rock [address] [place] [address] PCP - General Family Medicine 07/04/15 documented as of this encounter
--- OUTSIDE RECORDS SUMMARY | 2025-01-11 14:50 | XMS_ITS | Encounter Summary ---
Author Organization [employer] Address [address] [place] [address] [place] [address] Care Team Providers Care Revenue Enforcement Collection Agent Name Role Phone Name, Rock DE PAZ Primary Care Provider [phone] Reason for Visit * Reason Comments Med Refill Encounter Details Date Type Department Care Team ([facility] st Contact Info) Description 08/22/2024 Refill [facility] MEDICINE [address] [place], [place] [phone] Name, MD Rock [address] [place] [address] Chronic pain syndrome Social History Tobacco Use [...] 1:00 PM EST Clinical Support [facility] MEDICINE [address] [place] [address] Corrie Chen, SCOUT documented as of this encounter Visit Diagnoses Diagnosis Chronic pain syndrome documented in this encounter Additional Health Concerns Assessment Noted Time PHQ-9 Depression Total Score: 17 025 2:50 PM EST documented as of this encounter Care Teams Revenue Enforcement Collection Agent Relationship Specialty Start Date End Date Name, MD Rock [address] [place] [address] PCP - General Family Medicine 07/04/15 documented as of this encounter
--- OUTSIDE RECORDS SUMMARY | 2025-01-11 14:50 | XMS_ITS | Encounter Summary ---
Author Organization [employer] Address [address] [place] [address] 7 [place] [address] Care Team Providers Care Business Analytics Director Name Role Phone NameRock MD Primary Care Provider [phone] Reason for Visit * Reason Comments Med Refill Encounter Details Date Type Department Care Team ([facility] st Contact Info) Description 11/29/[address] [facility] [address] [place] [address] [phone] Name, MD Rock [address] [place] [phone] Chronic pain syndrome Social History Tobacco Use [...] 03/13/2025 1:00 PM EST Clinical Support [facility]INE [address] [place] [address] Corrie Chen RN documented as of this encounter Visit Diagnoses Diagnosis Chronic pain syndrome documented in this encounter Additional Health Concerns Assessment Noted Time PHQ-9 Depression Total Score: 12 024 2:16 PM EDT documented as of this encounter Care Teams Business Analytics Director Relationship Specialty Start Date End Date Name, MD Rock [address] [place] [address] PCP - General Family Medicine 07/04/15 documented as of this encounter
--- OUTSIDE RECORDS SUMMARY | 2025-01-11 14:50 | XMS_ITS | Encounter Summary ---
Author Organization [employer] Address [address] [place] [address] Care Team Providers Care Lumber Grader Name Role Phone Name, Rock DE PAZ Primary Care Provider [phone] Encounter Details Date Type Department Care Team (Late st Contact Info) Description 04/30/2022 Orders Only [facility] [address] [place] [address] Cheyenne Sánchez LPN Social History Tobacco Use [...] Description 03/13/2025 1:00 PM EST Clinical Support [facility] MEDICINE [address] [place] [address] Corrie Chen RN documented as of this [...] N Telopetide (NTx) 50 see note H [facility] Comment:Result Units: nM BCE /mM creatPremenopausal Females: 4 - 64 nM BCE/mM creatResults are primarily used for monitoring theresponse to therapy. A value within thepremenopausal range does not rule out osteoporosisnor the need for therapyUnits of Measure: nM BCE/mM creat CREATININE, RANDOM URINE 114 20 - 275 mg/dL [facility] Comment:THIS TEST WAS PERFOR MED AT:[employer]/[id number] [place] [address]DVTDJIYCARMELITA WRIGHT MD,PHD 05/04/2022 3:06 PM EST 05/04/2022 3:22 PM EST us [facility] External Provider LAB URI NE ORDERABLES Final Result [facility] [address] [place] [phone] * Protein Electrophoresis and Dugger/Lambda Light Chains (05/04/2022 2:30 PM EST) Prot Elec - Total Protein 7.0 6.1 - 8.1 g/dL [facility] Prot Elec - Albumin 4.2 3.8 - 4.8 g/dL [facility] Prot Elec - Alpha1 0.3 0.2 - 0.3 g/dL [facility] Prot Elec - Alpha2 0.8 0.5 - 0.9 g/dL [facility] Prot Elec - Beta 1 0.6 0.4 - 0.6 g/dL [facility] Prot Elec - Beta 2 0.3 0.2 - 0.5 g/dL [facility] Prot Elec - Gamma 0.8 0.8 - 1.7 g/dL [facility] PES - Abn Protein Band 1 TNP [facility] PES-Abn Protein Band 2 TNP [facility] PES-Abn Protein Band 3 [facility] Prot Elec - Interpretation SEE NOTE [facility] Comment:Normal Electrophoret ic PatternTHIS TEST WAS PERFORMED AT:[employer] [address] ([address] [address]IMKJANANCY ADKINS MD 05/04/2022 2:30 PM EST 05/04/2022 2:33 PM EST us [facility] External Provider LAB BLO OD ORDERABLES Final Result Performing Organization Address City/[facility]/ZIP Co de Phone Number [facility] [address] [place] [phone] * Alkaline Phosphatase, Bone Specific (05/04/2022 2:30 PM EST) Alkaline Phosphatase, Bone Specific 11.6 5.6 - 29.0 mcg/L [facility] Comment:Reference Range, Pre menopausal (mcg/L) 35-45 years 5.0-18.2THIS TEST WAS PERFORMED AT:[employer]/[facility]ALSOMVISJAC07[address] [place] [address]WBHUXAKCARMELITA WRIGHT MD,PHD 05/04/2022 2:30 PM EST 05/04/2022 2:33 PM EST [facility] External Provider LAB BLO OD ORDERABLES Final Result Performing Organization Address [facility] Co de Phone Number [facility] [address] [place] [phone] * Thyroid Peroxidase And Thyroglobulin Antibodies (05/04/2022 2:30 PM EST) Thyroglobulin Antibodies <1 < or = 1 IU/mL [facility] Comment:THIS TEST WAS PERFOR MED AT:[employer] [address] ([address] [address]NFGIBNANCY ADKINS MD 05/04/2022 2:30 PM EST 05/04/2022 2:33 PM EST [facility] External Provider LAB BLO OD ORDERABLES Final Result Performing Organization Address [facility] de [facility] Number [facility] [address] [place] [phone] * (ABNORMAL) Thyroglobulin, LC/MS/MS (05/04/2022 2:30 PM EST) Thyroglobulin, LC/MS/MS <0.1(A) ng/mL [facility] Comment:Reference Range: Int act Thyroid 2.8-40.9 Athyrotic <0.1 Note: Abnormal flagging is based on the reference interval for patients with intact thyroid.This test was performed using the Kristne Coulterchemiluminescent method. Values obtained fromdifferent assay methods cannot be usedinterchangeably. Thyroglobulin levels, regardlessof value, should not be interpreted as absoluteevidence of the presence or absence of disease. Thyroglobulin Comment See Below [facility] Comment:Thyroglobulin antibo dies (TGAB) interfere withthyroglobulin (TG) assays; therefore, TGAB assayshould always be performed in conjunction with aTG assay.For additional information, please refer tohttp://education.Isonas/faq/NIF822(This link is being provided for informational/educational purposes only.)THIS TEST WAS PERFORMED AT:[employer] [place] [address] (1)[place] [address]HVCYQNANCY ADKINS MD 05/04/2022 2:30 PM EST 05/04/2022 2:33 PM EST [facility] External Provider LAB BLO OD ORDERABLES Final Result Performing Organization Address [facility] Co de Phone Number [facility] [address] [place] [phone] * PTH, Intact Without Calcium (05/04/2022 2:30 PM EST) PTHI 73 16 - 77 pg/mL [facility] Comment:Interpretive Guide I ntact PTH Calcium -------Normal Parathyroid Normal NormalHypoparathyroidism Low or Low Normal LowHyperparathyroidism Primary Normal or High High Secondary High Normal or Low Tertiary High HighNon-Parathyroid Hypercalcemia Low or Low Normal High Calcium (PTHI) 8.9 8.6 - 10.4 mg/dL [facility] Comment:THIS TEST WAS PERFOR MED AT:[employer] [place] [address] (1)[place] [address]VEBZDNANCY ADKINS MD 05/04/2022 2:30 PM EST 05/04/2022 2:33 PM EST [facility] External Provider LAB BLO OD ORDERABLES Final Result Performing Organization Address [facility] Co de Phone Number [facility] [address] [place] [phone] * TSH (05/04/2022 2:30 PM EST) Thyroid Stimulating Hormone 3.46 0.32 - 4.0 uIU/mL [facility] Comment:Note: A sustained TS H level above 2.5 uIU/mL may warrant further investigation. TSH 3rd Generation ([facility]) 05/04/2022 2:30 PM EST 05/04/2022 2:33 PM EST [facility] External Provider LAB BLO OD ORDERABLES Final Result [facility] [address] [place] [phone] * T4, Free (05/04/2022 2:30 PM EST) Free T4 (Free Thyroxine) 1.14 0.71 - 1.85 ng/dL [facility] 05/04/2022 2:30 PM EST 05/04/2022 2:33 PM EST [facility] External Provider LAB BLO OD ORDERABLES Final Result [facility] [address] [place] [phone] * Vitamin D, 25-Hydroxy, Total, Immunoassay (05/04/2022 2:30 PM EST) Vitamin D 25-OH Total 25.8 >30 ng/mL [facility] Comment:Health Based Referen ce Values*< 20 ng/mL Nhdxqhono95-58 ng/mL Insufficient> 30 ng/mL Sufficient*Elver KRUSE. N [...] 2:30 PM EST 05/04/2022 2:33 PM EST [facility] External Provider LAB BLO OD ORDERABLES Final Result Performing Organization Address City/[facility]/ZIP Co de Phone Number [facility] [address] [place] [phone] * Phosphate (As Phosphorus) (05/04/2022 2:30 PM EST) Phosphorus 3.0 2.7 - 4.5 mg/dL [facility] 05/04/2022 2:30 PM EST 05/04/2022 2:33 PM EST [facility] External Provider LAB BLO OD ORDERABLES Final Result Performing Organization Address [facility]/ZIP Co de Phone Number [facility] [address] [place] [phone] * Comprehensive Metabolic Panel (05/04/2022 2:30 PM EST) Sodium 138 135 - 145 mmol/L [facility] Potassium 4.8 3.3 - 5.1 mmol/L [facility] Chloride 106 96 - 108 mmol/L [facility] Carbon Dioxide 24 22 - 29 mmol/L [facility] Anion Gap 13 12 - 20 [facility] Urea Nitrogen (BUN) 15 9 - 16 mg/dL [facility] Creatinine, Serum 0.85 0.5 - 1.4 mg/dL [facility] Estimated Glomerular Filt Rate >60 [facility] Comment:NOTE: For -Am erican individuals, multiply the result by 1.210.Chronic Kidney Disease: Estimated GFR < 60 mL/min/1.10x3Cmhasb Kidney Disease: Estimated GFR < 15 mL/min/1.73m2 Glucose 90 60 - 115 mg/dL [facility] Calcium 9.0 8.4 - 10.2 mg/dL [facility] Bilirubin, Total 0.3 0.0 - 1.0 mg/dL [facility] Aspartate Amino Transferase 26 5 - 31 U/L [facility] Alanine Aminotransferase 28 0 - 31 U/L [facility] Total Protein 6.8 6.5 - 8.0 g/dL [facility] Albumin Level 4.2 3.5 - 5.0 g/dL [facility] Alkaline Phosphatase 61 39 - 117 U/L [facility] 05/04/2022 2:30 PM EST 05/04/2022 2:33 PM EST us [facility] External Provider LAB BLO OD ORDERABLES Final Result Performing Organization Address City/State/[facility] Co de Phone Number [facility] [address] [place] [phone] documented in this encounter Visit Diagnoses Not on filedocumented in this encounter Care Teams Lumber Grader Relationship Specialty Start Date End Date Name, MD Rock [address] [place] [address] PCP - General Family Medicine 07/04/15 documented as of this encounter
--- OUTSIDE RECORDS SUMMARY | 2025-01-11 14:50 | XMS_ITS | Encounter Summary ---
Author Organization [employer] Address [address] [place] [address] Care Team Providers Care Senior Mechanical Design Engineer Name Role Phone Name, Rock DE PAZ Primary Care Provider [phone] Encounter Details Date Type Department Care Team (Late st Contact Info) Description 05/06/2022 Orders Only [facility] MEDICINE [address] [place] [phone] Karen Falk LPN Social History Tobacco Use [...] Description 03/13/2025 1:00 PM EST Clinical Support [facility] MEDICINE [address] [place] [phone] Corrie Chen, SCOUT documented as of this encounter Visit Diagnoses Not on filedocumented in this encounter Care Teams Senior Mechanical Design Engineer Relationship Specialty Start Date End Date Name, MD Rock [address] [place] [address] PCP - General Family Medicine 07/04/15 documented as of this encounter
--- OUTSIDE RECORDS SUMMARY | 2025-01-11 14:50 | XMS_ITS | Encounter Summary ---
Author Organization [facility] [facility] [facility] Address [address] [place] [address] 7 [place] [address] Care Team Providers Care Chemical Process Engineer Name Role Phone Name, Rock DE PAZ Primary Care Provider [phone] Reason for Visit * Reason Onset Date Comments Medication Question 05/31/2023 Encounter Details Date Type Department Care Team ([facility] st Contact Info) Description 05/31/2023 Telephone [facility] MEDICINE [address] [place], [place] [phone] Name, MD Rock [address] [place] [address] Medication Question Social History Tobacco Use Types [...] a week . pt. Advised to call Land Leases And Rentals Manager because medication was prescribe by Land Leases And Rentals Manager. Pt. States tutor coordinator also prescribe blood works before prescribing these medication, but as per pt. PCP is managing kidney related function and low phosphorus so want to discuss about these medication. Pt. Advised that message will be sent to PCP for review. Please review and advise. Tc from pt requesting to speak with provider in regards to two medications that are being offered by the Land Leases And Rentals Manager which are Pimwall which has to be injected every single day and Levaradi which is once a week . Pt would like to discuss this with PCP or nurse to verify if it's okay and which medication should she go for due to her medical History. Please contact pt @ [phone] * Telephone Encounter - Esperanza Bravo - 05/31/2023 2:02 PM EST Tc from pt requesting to speak with provider in regards to two medications that are being offered by the Land Leases And Rentals Manager which are Pimwall which has to be injected every single day and Levaradi whichis once a week . Pt would like to discuss this with PCP or nurse to verify if it's okay and which medication should she go for due to her medical History. Please contact pt @ [phone] documented in this encounter Plan of Treatment Upcoming Encounters Date Type Department Care Team (Late st Contact Info) Description 03/13/2025 1:00 PM EST Clinical Support [facility] MEDICINE [address] [place] [address] Corrie Chen, RN documented as of this encounter Visit Diagnoses Not on filedocumented in this encounter Additional Health Concerns Assessment Noted Time PHQ-9 Depression Total Score: 21 023 10:14 AM EDT documented as of this encounter Care Teams Chemical Process Engineer Relationship Specialty Start Date End Date Name, MD Rock [address] [place] [address] PCP - General Family Medicine 07/04/15 documented as of this encounter
--- OUTSIDE RECORDS SUMMARY | 2025-01-11 14:50 | XMS_ITS | Encounter Summary ---
Author Organization [employer] Address [address] [place] [address] [place] [address] Care Team Providers Care Financial Service Rep Name Role Phone Name, Rock DE PAZ Primary Care Provider [phone] Reason for Visit * Reason Onset Date Comments Med Refill 04/27/2024 Encounter Details Date Type Department Care Team (Late st Contact Info) Description 04/27/2024 Refill [facility] MEDICINE [address] [place], [place] [phone] Name, MD Rock [address] [place] [address] Chronic pain syndrome Social History Tobacco Use [...] Description 03/13/2025 1:00 PM EST Clinical Support [facility] [address] [place] [address] Corrie Chen, SCOUT documented as of this encounter Visit Diagnoses Diagnosis Chronic pain syndrome documented in this encounter Additional Health Concerns Assessment Noted Time PHQ-9 Depression Total Score: 12 024 2:16 PM EDT documented as of this encounter Care Teams Financial Service Rep Relationship Specialty Start Date End Date Name, MD Rock [address] [place] [address] PCP - General Family Medicine 07/04/15 documented as of this encounter
--- OUTSIDE RECORDS SUMMARY | 2025-01-11 14:50 | XMS_ITS | Encounter Summary ---
Author Organization [employer] Address [address] [place] [address] Care Team Providers Care Camp Head Counselor Name Role Phone Name, Rock DE PAZ Primary Care Provider [phone] Reason for Visit * Reason Onset Date Comments Med Refill 12/01/2024 Encounter Details Date Type Department Care Team (Late st Contact Info) Description 12/01/2024 Refill [facility] MEDICINE [address] [place], [place] [phone] Name, MD Rock [address] [place] [address] High cholesterol; Statin intolerance Social History Tobacco [...] Description 03/13/2025 1:00 PM EST Clinical Support [facility] MEDICINE [address] [place] [address] Corrie Chen, SCOUT documented as of this encounter Visit Diagnoses Diagnosis High cholesterol Pure hypercholesterolemia Statin intolerance documented in this encounter Additional Health Concerns Assessment Noted Time PHQ-9 Depression Total Score: 17 025 2:50 PM EST documented as of this encounter Care Teams Camp Head Counselor Relationship Specialty Start Date End Date Name, MD Rock 230 [place] [address] PCP - General Family Medicine 07/04/15 documented as of this encounter
--- OUTSIDE RECORDS SUMMARY | 2025-01-11 14:50 | XMS_ITS | Encounter Summary ---
Author Organization [employer] Address [address] [place] [address] Care Team Providers Care Tea Room Manager Name Role Phone Name, Rock DE PAZ Primary Care Provider [phone] Reason for Visit * Reason Comments Med Refill Encounter Details Date Type Department Care Team ([facility] Contact Info) Description 09/16/2022 Refill [facility] MEDICINE [address] [place] [phone] Name, MD Rock [address] [place] [phone] Chronic pain syndrome Social History Tobacco Use [...] Upcoming Encounters Date Type Department Care Team ([facility] Contact Info) Description 03/13/2025 1:00 PM EST Clinical Support [facility] MEDICINE [address] [place] [address] Corrie Chen, SCOUT documented as of this encounter Visit Diagnoses Diagnosis Chronic pain syndrome documented in this encounter Care Teams Tea Room Manager Relationship Specialty Start Date End Date Name, MD Rock [address] [place] [address] PCP - General Family Medicine 07/04/15 documented as of this encounter
--- OUTSIDE RECORDS SUMMARY | 2025-01-11 14:50 | XMS_ITS | Encounter Summary ---
Author Organization [employer] Address [address] [place] [address] 7 [place] [address] Care Team Providers Care Pediatric Audiologist Name Role Phone Name, Rock DE PAZ Primary Care Provider [phone] Encounter Details Date Type Department Care Team (Latest Contact Info) Description 01/04/2025 Results Follow-Up [facility] MEDICINE [address] [place] [address] [phone] Name, MD Rock [address] [place] [address] CBC auto differential, Comprehensive Metabolic Panel, PTH, Intact Without Calcium, Additional followed-up results: 5 Social History Tobacco Use Types Packs/Day Years [...] 1:00 PM EST Clinical Support [facility] MEDICINE [address] [place] [address] Corrie Chen, SCOUT documented as of this encounter Visit Diagnoses Not on filedocumented in this encounter Additional Health Concerns Assessment Noted Time PHQ-9 Depression Total Score: 17 025 2:50 PM EST documented as of this encounter Care Teams Pediatric Audiologist Relationship Specialty Start Date End Date Name, MD Rock [address] [place] [address] PCP - General Family Medicine 07/04/15 documented as of this encounter
--- OUTSIDE RECORDS SUMMARY | 2025-01-11 14:50 | XMS_ITS | Encounter Summary ---
Author Organization [email or web address] Address [address] [place] [address] Care Team Providers Care Talent Agent Name Role Phone Name, Rock ED PAZ Primary Care Provider [phone] Reason for Visit * Reason Comments Med Refill Encounter Details Date Type Department Care Team (Late st Contact Info) Description 04/08/2022 Refill [facility] [address] [place] [address] Yoni Mccormick MD [address] [place] [phone] Social History Tobacco Use Types Packs/Day Years [...] Description 03/13/2025 1:00 PM EST Clinical Support [facility] MEDICINE [address] [place] [address] Corrie Chen RN documented as of this encounter Visit Diagnoses Not on filedocumented in this encounter Care Teams Talent Agent Relationship Specialty Start Date End Date Name, MD Rock [address] [place] [id number] PCP - General Family Medicine 07/04/15 documented as of this encounter
--- OUTSIDE RECORDS SUMMARY | 2025-01-11 14:51 | XMS_ITS | Encounter Summary ---
Author Organization [employer] Address [address] [place] [address] Care Team Providers Care Route Returner Name Role Phone Name, Rock DE PAZ Primary Care Provider [phone] Reason for Visit * Reason Onset Date Comments Med Refill 09/10/2024 Encounter Details Date Type Department Care Team (Late st Contact Info) Description 09/10/2024 Refill [facility] MEDICINE [address] [place], [place] [phone] Name, MD Rock [address] [place] [address] Hypophosphatemia Social History Tobacco Use Types Packs/Day [...] Description 03/13/2025 1:00 PM EST Clinical Support [facility] MEDICINE [address] [place] [address] Corrie Chen, SCOUT documented as of this encounter Visit Diagnoses Diagnosis Hypophosphatemia Disorders of phosphorus metabolism documented in this encounter Additional Health Concerns Assessment Noted Time PHQ-9 Depression Total Score: 17 025 2:50 PM EST documented as of this encounter Care Teams Route Returner Relationship Specialty Start Date End Date Name, MD Rock [address] [place] [address] PCP - General Family Medicine 07/04/15 documented as of this encounter
--- OUTSIDE RECORDS SUMMARY | 2025-01-11 14:51 | XMS_ITS | Encounter Summary ---
Author Organization [employer] Address [address] [place] [address] 7 [place] [address] Care Team Providers Care Police Liaison Name Role Phone Name, Rock DE PAZ Primary Care Provider [phone] Reason for Visit * Reason Comments Med Refill Encounter Details Date Type Department Care Team (Late st Contact Info) Description 03/04/2023 Refill [facility] MEDICINE [address] [place] [address] Christine Doe FNP Social History Tobacco Use [...] Description 03/13/2025 1:00 PM EST Clinical Support [facility] MEDICINE [address] [place] [address] Corrie Chen RN documented as of this encounter Visit Diagnoses Not on filedocumented in this encounter Additional Health Concerns Assessment Noted Time PHQ-9 Depression Total Score: 21 023 10:14 AM EDT documented as of this encounter Care Teams Police Liaison Relationship Specialty Start Date End Date Name, MD Rock [address] [place] [address] PCP - General Family Medicine 07/04/15 documented as of this encounter
--- OUTSIDE RECORDS SUMMARY | 2025-01-11 14:51 | XMS_ITS | Encounter Summary ---
Author Organization [employer] Address [address] [place] [address] Care Team Providers Care Display Fabricator Name Role Phone Name, Rock DE PAZ Primary Care Provider [phone] Reason for Visit * Reason Onset Date Comments Med Refill 03/10/2024 Encounter Details Date Type Department Care Team (Late st Contact Info) Description 03/10/2024 Refill [facility] MEDICINE 230 [place], [place] [phone] Name, MD Rock [address] [place] [address] Hypophosphatemia Social History Tobacco Use Types Packs/Day [...] Clinical Support [facility] MEDICINE [address] [place] [address] Corrie Chen, SCOUT documented as of this encounter Visit Diagnoses Diagnosis Hypophosphatemia Disorders of phosphorus metabolism documented in this encounter Additional Health Concerns Assessment Noted Time PHQ-9 Depression Total Score: 12 024 2:16 PM EDT documented as of this encounter Care Teams Display Fabricator Relationship Specialty Start Date End Date Name, MD Rock [address] [place] [address] PCP - General Family Medicine 07/04/15 documented as of this encounter
--- OUTSIDE RECORDS SUMMARY | 2025-01-11 14:51 | XMS_ITS | Encounter Summary ---
Author Organization [employer] Address [address] [place] [address] Care Team Providers Care Electron Beam Photo Mask Technician Name Role Phone Name, Rock DE PAZ Primary Care Provider [phone] Reason for Visit * Reason Onset Date Comments Med Refill 09/15/2024 Encounter Details Date Type Department Care Team (Late st Contact Info) Description 09/15/2024 Refill [facility] MEDICINE [address] [place], [place] [phone] Name, MD Rock [address] [place] [address] Hypophosphatemia Social History Tobacco Use Types Packs/Day [...] Description 03/13/2025 1:00 PM EST Clinical Support [facility] MEDICINE [address] [place] [address] Corrie Chen, SCOUT documented as of this encounter Visit Diagnoses Diagnosis Hypophosphatemia Disorders of phosphorus metabolism documented in this encounter Additional Health Concerns Assessment Noted Time PHQ-9 Depression Total Score: 17 025 2:50 PM EST documented as of this encounter Care Teams Electron Beam Photo Mask Technician Relationship Specialty Start Date End Date Name, MD Rock [address] [place] [address] PCP - General Family Medicine 07/04/15 documented as of this encounter
--- OUTSIDE RECORDS SUMMARY | 2025-01-11 14:51 | XMS_ITS | Encounter Summary ---
Author Organization [email or web address] Address [address] [place] [address] Care Team Providers Care Feltmaker And Weigher Name Role Phone Name, Rock DE PAZ Primary Care Provider [phone] Reason for Visit * Reason Onset Date Comments Med Refill 10/23/2024 Encounter Details Date Type Department Care Team (Late st Contact Info) Description 10/23/2024 Refill [facility] MEDICINE [address] [place], [place] [phone] Name, MD Rock [address] [place] [address] Insomnia, unspecified type Social History Tobacco Use [...] Description 03/13/2025 1:00 PM EST Clinical Support [facility]ICINE [address] [place] [address] Corrie Chen, SCOUT documented as of this encounter Visit Diagnoses Diagnosis Insomnia, unspecified type documented in this encounter Additional Health Concerns Assessment Noted Time PHQ-9 Depression Total Score: 17 025 2:50 PM EST documented as of this encounter Care Teams Feltmaker And Weigher Relationship Specialty Start Date End Date Name, MD Rock [address] [place] [address] PCP - General Family Medicine 07/04/15 documented as of this encounter
--- OUTSIDE RECORDS SUMMARY | 2025-01-11 14:51 | XMS_ITS | Encounter Summary ---
Author Organization [employer] Address [address] [place] [address] [place] [address] Care Team Providers Care Party Plan Salesperson Name Role Phone Name, Rock DE PAZ Primary Care Provider [phone] Reason for Visit * Reason Onset Date Comments Med Refill 02/09/2024 Encounter Details Date Type Department Care Team (Late st Contact Info) Description 02/09/2024 Refill [facility] MEDICINE [address] [place], [place] [phone] Name, MD Rock [address] [place] [address] Chronic pain syndrome; Insomnia, unspecified type Social [...] Description 03/13/2025 1:00 PM EST Clinical Support [facility]ICINE [address] [place] [address] Corrie Chen, RN documented as of this encounter Visit Diagnoses Diagnosis Chronic pain syndrome Insomnia, unspecified type documented in this encounter Additional Health Concerns Assessment Noted Time PHQ-9 Depression Total Score: 12 024 2:16 PM EDT documented as of this encounter Care Teams Party Plan Salesperson Relationship Specialty Start Date End Date Name, MD Rock [address] [place] [address] PCP - General Family Medicine 07/04/15 documented as of this encounter
--- OUTSIDE RECORDS SUMMARY | 2025-01-11 14:51 | XMS_ITS | Encounter Summary ---
Author Organization [employer] Address [address] [place] [address] [place] [address] Care Team Providers Care Informatics Coordinator Name Role Phone Name, Rock DE PAZ Primary Care Provider [phone] Reason for Visit * Reason Onset Date Comments Med Refill 03/02/2024 Encounter Details Date Type Department Care Team (Late st Contact Info) Description 03/02/2024 Refill [facility] MEDICINE [address] [place], [place] [phone] Name, MD Rock [address] [place] [address] Chronic pain syndrome Social History Tobacco Use [...] Support [facility] MEDICINE [address] [place] [address] Corrie Chen, SCOUT documented as of this encounter Visit Diagnoses Diagnosis Chronic pain syndrome documented in this encounter Additional Health Concerns Assessment Noted Time PHQ-9 Depression Total Score: 12 024 2:16 PM EDT documented as of this encounter Care Teams Informatics Coordinator Relationship Specialty Start Date End Date Name, MD Rock [address] [place] [address] PCP - General Family Medicine 07/04/15 documented as of this encounter
--- OUTSIDE RECORDS SUMMARY | 2025-01-11 14:51 | XMS_ITS | Encounter Summary ---
Author Organization [employer] Address [address] [place] [address] [place] [address] Care Team Providers Care Roughing Mill Operator Name Role Phone Name, Rock DE PAZ Primary Care Provider Reason for Visit * Reason Onset Date Comments Med Refill 03/02/2024 Encounter Details Date Type Department Care Team (Late st Contact Info) Description 03/02/2024 Refill [facility] [place] [facility] MEDICINE [address] [place], [place] [phone] Name, MD Rock [address] [place] [address] Social History Tobacco Use Types Packs/Day Years [...] Description 03/13/2025 1:00 PM EST Clinical Support [facility] [place] MEDICINE [address] [place] [address] Corrie Chen RN documented as of this encounter Visit Diagnoses Not on filedocumented in this encounter Additional Health Concerns Assessment Noted Time PHQ-9 Depression Total Score: 12 024 2:16 PM EDT documented as of this encounter Care Teams Roughing Mill Operator Relationship Specialty Start Date End Date Name, MD Rock [address] [place] [address] PCP - General Family Medicine 07/04/15 documented as of this encounter
--- OUTSIDE RECORDS SUMMARY | 2025-01-11 14:51 | XMS_ITS | Encounter Summary ---
Author Organization [employer] Address [address] [place] [address] Care Team Providers Care Wet Process Operator Name Role Phone Name, Rock DE PAZ Primary Care Provider Reason for Visit * Reason Onset Date Comments Med Refill 06/14/2024 Encounter Details Date Type Department Care Team (Late st Contact Info) Description 06/14/2024 Refill [facility] MEDICINE [address] [place], [place] [phone] Name, MD Rock [address] [place] [address] Chronic pain syndrome Social History Tobacco Use [...] is your housing situation today? I have sarahmaryg ruffin 05/17/[address] you [...] 1:00 PM EST Clinical Support [facility] MEDICINE [address] [place] [address] Corrie Chen, SCOUT documented as of this encounter Visit Diagnoses Diagnosis Chronic pain syndrome documented in this encounter Additional Health Concerns Assessment Noted Time PHQ-9 Depression Total Score: 17 025 2:50 PM EST documented as of this encounter Care Teams Wet Process Operator Relationship Specialty Start Date End Date Name, MD Rock [address] [place] [address] PCP - General Family Medicine 07/04/15 documented as of this encounter
--- OUTSIDE RECORDS SUMMARY | 2025-01-11 14:51 | XMS_ITS | Encounter Summary ---
Author Organization [employer] Address [address] [place] [address] [place] [address] Care Team Providers Care Product Design Engineer Name Role Phone Name, Rock DE PAZ Primary Care Provider [phone] Reason for Visit * Reason Onset Date Comments Med Refill 02/09/2024 Encounter Details Date Type Department Care Team (Late st Contact Info) Description 02/09/2024 Refill [facility] MEDICINE 230 [place], [place] [phone] Name, MD Rock [address] [place] [address] Social History Tobacco Use Types Packs/Day Years [...] 03/13/2025 1:00 PM EST Clinical Support [facility] MEDICINE [address] [place] [address] Corrie Chen RN documented as of this encounter Visit Diagnoses Not on filedocumented in this encounter Additional Health Concerns Assessment Noted Time PHQ-9 Depression Total Score: 12 024 2:16 PM EDT documented as of this encounter Care Teams Product Design Engineer Relationship Specialty Start Date End Date Name, MD Rock [address] [place] [address] PCP - General Family Medicine 07/04/15 documented as of this encounter
--- OUTSIDE RECORDS SUMMARY | 2025-01-11 14:51 | XMS_ITS | Encounter Summary ---
Author Organization [employer] Address [address] [place] [address] Care Team Providers Care Pressure Control Supervisor Name Role Phone Name, Rock DE PAZ Primary Care Provider [phone] Reason for Visit * Reason Onset Date Comments Med Refill 03/10/2024 Encounter Details Date Type Department Care Team (Late st Contact Info) Description 03/10/2024 Refill [facility] MEDICINE 230 [place], [place] [phone] Name, MD Rock [address] [place] [address] Insomnia, unspecified type Social History Tobacco Use [...] Support [facility] MEDICINE [address] [place] [address] Corrie Chen, SCOUT documented as of this encounter Visit Diagnoses Diagnosis Insomnia, unspecified type documented in this encounter Additional Health Concerns Assessment Noted Time PHQ-9 Depression Total Score: 12 024 2:16 PM EDT documented as of this encounter Care Teams Pressure Control Supervisor Relationship Specialty Start Date End Date Name, MD Rock [address] [place] [address] PCP - General Family Medicine 07/04/15 documented as of this encounter
--- OUTSIDE RECORDS SUMMARY | 2025-01-11 14:51 | XMS_ITS | Encounter Summary ---
Author Organization [employer] Address [address] [place] [address] Care Team Providers Care Management Expert Name Role Phone Name, Rock DE PAZ Primary Care Provider [phone] Reason for Visit * Reason Onset Date Comments Med Refill 06/03/2024 Encounter Details Date Type Department Care Team (Late st Contact Info) Description 06/03/2024 Refill [facility] MEDICINE [address] [place], [place] [phone] Name, MD Rock [address] [place] [address] Hypophosphatemia Social History Tobacco Use Types Packs/Day [...] 1:00 PM EST Clinical Support [facility] MEDICINE [address] [place] [address] Corrie Chen, SCOUT documented as of this encounter Visit Diagnoses Diagnosis Hypophosphatemia Disorders of phosphorus metabolism documented in this encounter Additional Health Concerns Assessment Noted Time PHQ-9 Depression Total Score: 17 025 2:50 PM EST documented as of this encounter Care Teams Management Expert Relationship Specialty Start Date End Date Name, MD Rock [address] [place] [address] PCP - General Family Medicine 07/04/15 documented as of this encounter
--- OUTSIDE RECORDS SUMMARY | 2025-01-11 14:51 | XMS_ITS | Encounter Summary ---
Author Organization [employer] Address [address] [place] [address] [place] [address] Care Team Providers Care Hardboard Press Operator Name Role Phone Name, Rock DE PAZ Primary Care Provider [phone] Reason for Visit * Reason Onset Date Comments Med Refill 05/08/2024 Encounter Details Date Type Department Care Team (Late st Contact Info) Description 05/08/2024 Refill [facility] MEDICINE [address] [place], [place] [phone] Name, MD oRck [address] [place] [address] Chronic pain syndrome; Insomnia, unspecified type Social [...] 1:00 PM EST Clinical Support [facility] MEDICINE [address] [place] [address] Corrie Chen, RN documented as of this encounter Visit Diagnoses Diagnosis Chronic pain syndrome Insomnia, unspecified type documented in this encounter Additional Health Concerns Assessment Noted Time PHQ-9 Depression Total Score: 12 024 2:16 PM EDT documented as of this encounter Care Teams Hardboard Press Operator Relationship Specialty Start Date End Date Name, MD Rock [address] [place] [address] PCP - General Family Medicine 07/04/15 documented as of this encounter
--- OUTSIDE RECORDS SUMMARY | 2025-01-11 14:51 | XMS_ITS | Encounter Summary ---
Author Organization [employer] Address [address] [place] [address] [place] [address] Care Team Providers Care Pulpwood Cutter Name Role Phone Name, Rock DE PAZ Primary Care Provider [phone] Reason for Visit * Reason Comments Med Refill Encounter Details Date Type Department Care Team ([facility] st Contact Info) Description 09/11/2024 Refill [facility] [address] [place], [place] [phone] Name, MD Rock [address] [place] [address] Hypophosphatemia Social History Tobacco Use Types Packs/Day [...] [facility] [address] [place] [address] Corrie Chen, RN documented as of this encounter Visit Diagnoses Diagnosis Hypophosphatemia Disorders of phosphorus metabolism documented in this encounter Additional Health Concerns Assessment Noted Time PHQ-9 Depression Total Score: 17 025 2:50 PM EST documented as of this encounter Care Teams Pulpwood Cutter Relationship Specialty Start Date End Date Name, MD Rock [address] [place] [address] PCP - General Family Medicine 07/04/15 documented as of this encounter
--- OUTSIDE RECORDS SUMMARY | 2025-01-11 14:51 | XMS_ITS | Encounter Summary ---
Author Organization [employer] Address [address] [place] [address] [place] [address] Care Team Providers Care International Specialist Name Role Phone Name, Rock DE PAZ Primary Care Provider [phone] Reason for Visit * Reason Comments Med Refill Encounter Details Date Type Department Care Team ([facility] st Contact Info) Description 09/15/2024 Refill [facility] MED[facility] [address] [place], [place] [phone] Name, MD Rock [address] [place] [address] Hypophosphatemia Social History Tobacco Use Types Packs/Day [...] [facility] [address] [place] [address] Corrie Chen, RN documented as of this encounter Visit Diagnoses Diagnosis Hypophosphatemia Disorders of phosphorus metabolism documented in this encounter Additional Health Concerns Assessment Noted Time PHQ-9 Depression Total Score: 17 025 2:50 PM EST documented as of this encounter Care Teams International Specialist Relationship Specialty Start Date End Date Name, MD Rock [address] [place] [address] PCP - General Family Medicine 07/04/15 documented as of this encounter
--- OUTSIDE RECORDS SUMMARY | 2025-01-11 14:51 | XMS_ITS | Encounter Summary ---
Author Organization [employer] Address [address] [place] [address] [place] [address] Care Team Providers Care Rail Assembler Name Role Phone Name, Rock DE PAZ Primary Care Provider [phone] Reason for Visit * Reason Onset Date Comments Med Refill 05/08/2024 Encounter Details Date Type Department Care Team (Late st Contact Info) Description 05/08/2024 Refill [facility] [address] [place] [address] Name, MD Rock [address] [place] [address] Rhinorrhea Social History Tobacco Use Types Packs/Day [...] [facility] MEDICINE [address] [place] [address] Corrie Chen, SCOUT documented as of this encounter Visit Diagnoses Diagnosis Rhinorrhea Other diseases of nasal cavity and sinuses documented in this encounter Additional Health Concerns Assessment Noted Time PHQ-9 Depression Total Score: 12 024 2:16 PM EDT documented as of this encounter Care Teams Rail Assembler Relationship Specialty Start Date End Date Name, MD Rock [address] [place] [address] PCP - General Family Medicine 07/04/15 documented as of this encounter
--- OUTSIDE RECORDS SUMMARY | 2025-01-11 14:51 | XMS_ITS | Encounter Summary ---
Author Organization [employer] Address [address] [place] [address] [place] [address] Care Team Providers Care Guest Room Attendant Name Role Phone Name, Rock DE PAZ Primary Care Provider [phone] Reason for Visit * Reason Onset Date Comments Med Refill 03/03/2024 Encounter Details Date Type Department Care Team (Late st Contact Info) Description 03/03/[address] [facility] MEDICINE [address] [place], [place] [phone] Name, MD Rock [address] [place] [address] Chronic pain syndrome Social History Tobacco Use [...] Description 03/13/2025 1:00 PM EST Clinical Support [facility] MEDICINE [address] [place] [address] Corrie Chen, SCOUT documented as of this encounter Visit Diagnoses Diagnosis Chronic pain syndrome documented in this encounter Additional Health Concerns Assessment Noted Time PHQ-9 Depression Total Score: 12 024 2:16 PM EDT documented as of this encounter Care Teams Guest Room Attendant Relationship Specialty Start Date End Date Name, MD Rock [address] [place] [address] PCP - General Family Medicine 07/04/15 documented as of this encounter
--- OUTSIDE RECORDS SUMMARY | 2025-01-11 14:51 | XMS_ITS | Encounter Summary ---
Author Organization [employer] Address [address] [place] [address] Care Team Providers Care Chief Dog License Inspector Name Role Phone Name, Rock DE PAZ Primary Care Provider [phone] Reason for Visit * Reason Onset Date Comments Med Refill 06/16/2024 Encounter Details Date Type Department Care Team (Late st Contact Info) Description 06/16/2024 Refill [facility] MEDICINE [address] [place], [place] [phone] Name, MD Rock [address] [place] [address] Chronic pain syndrome Social History Tobacco Use [...] [facility] MEDICINE [address] [place] [address] Crorie Chen, SCOUT documented as of this encounter Visit Diagnoses Diagnosis Chronic pain syndrome documented in this encounter Additional Health Concerns Assessment Noted Time PHQ-9 Depression Total Score: 17 025 2:50 PM EST documented as of this encounter Care Teams Chief Dog License Inspector Relationship Specialty Start Date End Date Name, MD Rock [address] [place] [address] PCP - General Family Medicine 07/04/15 documented as of this encounter
--- OUTSIDE RECORDS SUMMARY | 2025-01-11 14:51 | XMS_ITS | Encounter Summary ---
Author Organization [employer] Address [address] [place] [address] [place] [address] Care Team Providers Care Installation Manager Name Role Phone Name, Rock DE PAZ Primary Care Provider [phone] Reason for Visit * Reason Onset Date Comments Med Refill 02/09/2024 Encounter Details Date Type Department Care Team (Late st Contact Info) Description 02/09/2024 Refill [facility] MEDICINE [address] [place], [place] [phone] Name, MD Rock [address] [place] [address] Chronic pain syndrome Social History Tobacco Use [...] 1:00 PM EST Clinical Support [facility] MEDICINE [address] [place] [address] Corrie Chen, SCOUT documented as of this encounter Visit Diagnoses Diagnosis Chronic pain syndrome documented in this encounter Additional Health Concerns Assessment Noted Time PHQ-9 Depression Total Score: 12 024 2:16 PM EDT documented as of this encounter Care Teams Installation Manager Relationship Specialty Start Date End Date Name, MD Rock [address] [place] [address] PCP - General Family Medicine 07/04/15 documented as of this encounter
--- OUTSIDE RECORDS SUMMARY | 2025-01-11 14:51 | XMS_ITS | Encounter Summary ---
Author Organization [employer] Address [address] [place] [address] [place] [address] Care Team Providers Care Brand Inspector Name Role Phone Name, Rock DE PAZ Primary Care Provider [phone] Reason for Visit * Reason Comments Med Refill Encounter Details Date Type Department Care Team ([facility] st Contact Info) Description 07/31/2024 Refill [facility] MEDICINE [address] [place], [place] [phone] Name, MD Rock [address] [place] [address] Chronic pain syndrome Social History Tobacco Use [...] 1:00 PM EST Clinical Support [facility] [address] [place] [address] Corrie Chen, SCOUT documented as of this encounter Visit Diagnoses Diagnosis Chronic pain syndrome documented in this encounter Additional Health Concerns Assessment Noted Time PHQ-9 Depression Total Score: 17 025 2:50 PM EST documented as of this encounter Care Teams Brand Inspector Relationship Specialty Start Date End Date Name, MD Rock [address] [place] [address] PCP - General Family Medicine 07/04/15 documented as of this encounter
--- OUTSIDE RECORDS SUMMARY | 2025-01-11 14:51 | XMS_ITS | Encounter Summary ---
Author Organization [employer] Address [address] [place] [address] Care Team Providers Care Chemistry Technical Officer Name Role Phone Name, Rock DE PAZ Primary Care Provider [phone] Reason for Visit * Reason Comments Med Refill Encounter Details Date Type Department Care Team (Late st Contact Info) Description 11/23/2022 Refill [facility] MEDICINE [address] [place], [place] [phone] Fany Pearson MD [address] [place] [address] Chronic pain syndrome; Insomnia, unspecified type Social [...] 1:00 PM EST Clinical Support [facility] MEDICINE [address] [place] [address] Corrie Chen, RN documented as of this encounter Visit Diagnoses Diagnosis Chronic pain syndrome Insomnia, unspecified type documented in this encounter Additional Health Concerns Assessment Noted Time PHQ-9 Depression Total Score: 21 023 10:14 AM EDT documented as of this encounter Care Teams Chemistry Technical Officer Relationship Specialty Start Date End Date Name, MD Rock [address] [place] [address] PCP - General Family Medicine 07/04/15 documented as of this encounter
--- OUTSIDE RECORDS SUMMARY | 2025-01-11 14:51 | XMS_ITS | Encounter Summary ---
Author Organization [employer] Address [address] [place] [address] 7 [place] [address] Care Team Providers Care Electrician'S Assistant Name Role Phone Name, Rock DE PAZ Primary Care Provider [phone] Reason for Visit * Reason Comments Med Refill Encounter Details Date Type Department Care Team (Late st Contact Info) Description 11/20/2022 Refill [facility] MEDICINE [address] [place], [place] [phone] Fany Pearson MD [address] [place] [address] Chronic pain syndrome; Insomnia, unspecified type Social [...] Support [facility] MEDICINE [address] [place] [address] Corrie Chen, RN documented as of this encounter Visit Diagnoses Diagnosis Chronic pain syndrome Insomnia, unspecified type documented in this encounter Additional Health Concerns Assessment Noted Time PHQ-9 Depression Total Score: 21 11/20/ 023 10:14 AM EDT documented as of this encounter Care Teams Electrician'S Assistant Relationship Specialty Start Date End Date Name, MD Rock [address] [place] [address] PCP - General Family Medicine 07/04/15 documented as of this encounter
--- OUTSIDE RECORDS SUMMARY | 2025-01-11 14:51 | XMS_ITS | Encounter Summary ---
Author Organization [employer] Address [address] [place] [address] Care Team Providers Care Fuse Coiler Name Role Phone Name, Rock DE PAZ Primary Care Provider [phone] Reason for Visit * Reason Onset Date Comments Med Refill 06/14/2024 Encounter Details Date Type Department Care Team (Late st Contact Info) Description 06/14/2024 Refill [facility] MEDICINE [address] [place], [place] [phone] Name, MD Rock [address] [place] [address] Chronic pain syndrome Social History Tobacco Use [...] Description 03/13/2025 1:00 PM EST Clinical Support [facility] MEDICINE [address] [place] [address] Corrie Chen, SCOUT documented as of this encounter Visit Diagnoses Diagnosis Chronic pain syndrome documented in this encounter Additional Health Concerns Assessment Noted Time PHQ-9 Depression Total Score: 17 025 2:50 PM EST documented as of this encounter Care Teams Fuse Coiler Relationship Specialty Start Date End Date Name, MD Rock [address] [place] [address] PCP - General Family Medicine 07/04/15 documented as of this encounter
--- OUTSIDE RECORDS SUMMARY | 2025-01-11 14:51 | XMS_ITS | Encounter Summary ---
Author Organization [employer] Address [address] [place] [address] Care Team Providers Care Powerhouse Attendant Name Role Phone Name, Rock DE PAZ Primary Care Provider [phone] Reason for Visit * Reason Onset Date Comments Med Refill 09/10/2024 Encounter Details Date Type Department Care Team (Late st Contact Info) Description 09/10/2024 Refill [facility] MEDICINE [address] [place], [place] [phone] Name, MD Rock [address] [place] [address] Chronic pain syndrome Social History Tobacco Use [...] 03/13/2025 1:00 PM EST Clinical Support [facility] MEDICINE [address] [place] [address] Corrie Chen, CSOUT documented as of this encounter Visit Diagnoses Diagnosis Chronic pain syndrome documented in this encounter Additional Health Concerns Assessment Noted Time PHQ-9 Depression Total Score: 17 025 2:50 PM EST documented as of this encounter Care Teams Powerhouse Attendant Relationship Specialty Start Date End Date Name, MD Rock [address] [place] [address] PCP - General Family Medicine 07/04/15 documented as of this encounter
--- OUTSIDE RECORDS SUMMARY | 2025-01-11 14:51 | XMS_ITS | Encounter Summary ---
Author Organization [employer] Address [address] [place] [address] [address], [place] [address] Care Team Providers Care Fur Polisher Name Role Phone Name, Rock DE PAZ Primary Care Provider [phone] Reason for Visit * Reason Comments Med Refill Encounter Details Date Type Department Care Team (Late st Contact Info) Description 11/26/2022 Refill [facility] MEDICINE [address] [place] [phone] Name, MD Rock [address] [place] [address] Chronic pain syndrome Social History Tobacco Use [...] Description 03/13/2025 1:00 PM EST Clinical Support [facility] MEDICINE [address] [place] [address] Corrie Chen, SCOUT documented as of this encounter Visit Diagnoses Diagnosis Chronic pain syndrome documented in this encounter Additional Health Concerns Assessment Noted Time PHQ-9 Depression Total Score: 21 11/20/ 023 10:14 AM EDT documented as of this encounter Care Teams Fur Polisher Relationship Specialty Start Date End Date Name, MD Rock [address] [place] [address] PCP - General Family Medicine 07/04/15 documented as of this encounter
--- OUTSIDE RECORDS SUMMARY | 2025-01-11 14:51 | XMS_ITS | Clinical Summary ---
Author Organization [employer] Address [address] [place] [address] 7 [place] [address] Care Team Providers Care Asphalt Distributor Tender Name Role Phone Name, Rock DE PAZ Primary Care Provider [phone] Allergies Active Allergy Reactions Criticality Noted Date [...] BEFORE MEAL(S) 180 capsule 1 024 Active albuterol 108 (90 Base) MCG/ACT inhaler Inhale 2 puffs every 6 (six) hours if needed for wheezing. 18 g 11 025 2025 Active fluticasone furoate (Arnuity Ellipta) 200 MCG/ACT inhaler Inhale 1 puff Once per day. Rinse mouth with water after use to reduce aftertaste and incidence of candidiasis. Do not swallow. 1 each 11 025 2025 Active fluticasone (Flonase) 50 MCG/ACT nasal sprayIndicatio ns:Rhinorrhea SPRAY 2 SPRAYS INTO EACH NOSTRIL EVER DAY. SHAKE GENTLY. BEFORE FIRST USE, PRIME PUMP. AFTER USE, CLEAN TIP AND REPLACE CAP. 16 g 2 025 Active ezetimibe (Zetia) 10 MG tabletIndicati [...] OF 225MG. 90 capsule 1 025 Active traMADol (Ultram) 50 MG tabletIndicati [...] MOUTH TWICE DAILY 60 tablet 2 Active carisoprodol (Soma) 350 MG tabletIndicati ons:Chronic pain syndrome TAKE 1 TABLET BY MOUTH ONCE DAILY IN THE MORNING,AT NOON, IN THE EVENING AND AT BEDTIME FOR MUSCLE SPASM FOR UP TO 23 DAYS 90 tablet Active venlafaxine XR (Effexor XR) 150 MG 24 hr capsuleIndicat ions:Hypophosp hatemia TAKE 1 CAPSULE BY MOUTH ONCE DAILY. TAKE WITH 75MG DOSE FOR A TOTAL DOSE OF 225MG DAILY. 90 capsule 1 Active hydroCHLOROthi azide (HYDRODiuril) 25 MG tablet Take 0.5 tablets (12.5 mg) by mouth Once per day. 025 2025 Active hydroCHLOROthi azide (HYDRODiuril) 25 MG tablet Take 1 tablet (25 mg) by mouth Once per day. 30 tablet 11 025 2024 Discontinued(R eorder (will not trigger [...] Active Problems Problem Noted Date Diagnosed Date Class 1 drug-induced obesity with serious comorbidity and body mass index (BMI) of 30.0 to 30.9 in adult 2025 History of repair of hiatal hernia 2025 Long-term current use of opiate analgesic 2024 [...] Encounters Date Type Department Care Team Description 01/04/2025 Results Follow-Up [address] [address] Name, MD Rock CBC auto differential, Comprehensive Metabolic Panel, PTH, Intact Without Calcium, Additional followed-up results: 5 2025 2:30 PM EDT Office Visit [facility] [address] [place] [address] Rock Rodrigues MD Hypertension, unspecified type (Primary Dx); Class 1 drug-induced obesity with serious comorbidity and body mass index (BMI) of 30.0 to 30.9 in adult; Primary osteoarthritis of both knees; History of repair of hiatal hernia 2025 Travel 2025 Orders Only [facility] [phone] Rock Rodrigues MD 12/29/2024 Refill [facility] [place] [phone] Rock Rodrigues MD Insomnia, unspecified type; Chronic pain syndrome; Hypophosphatemia 12/29/2024 Telephone [facility] [phone] Rock Rodrigues MD Chart Prep 12/25/2024 Travel 12/18/2024 Refill [facility] [place] [address] Shavon Fletcher MD Insomnia, unspecified type 12/15/2024 Refill [facility] [place] [address] Rock Rodrigues MD Hypophosphatemia 12/12/2024 1:00 PM EDT Clinical Support [facility] [place] [address] Corrie Chen RN Long-term current use of opiate analgesic (Primary Dx) 12/12/2024 Refill [facility] [place] [phone] Corrie Chen health science writer pain syndrome 12/12/2024 Travel 12/07/2024 Refill [facility] [place] [address] Rock Rodrigues MD Chronic pain syndrome 12/05/2024 2:00 PM EDT Office [address] [place] [address] Fany Pearson MD Chronic low back pain, unspecified back pain laterality, unspecified whether sciatica present (Primary Dx); Primary osteoarthritis of both knees 12/05/2024 Travel 12/01/2024 11:30 AM EDT Office Visit [facility] [address] [place] [address] Tiffany Fairbanks MD Seborrheic keratosis (Primary Dx); Benign nevus 12/01/2024 Refill [facility] [address] [place] [address] NameRock MD High cholesterol; Statin intolerance 12/01/2024 Travel 11/26/2024 Refill [facility] [address] [place] [address] Rock Rodrigues MD High cholesterol; Statin intolerance 11/24/2024 Travel 11/20/2024 Refill [facility] [address] [place] [address] Rock Rodrigues MD Insomnia, unspecified type 11/14/2024 Refill [facility] [address] [place] [address] Rock Rodrigues MD Chronic pain syndrome 11/14/2024 Refill [facility] [address] [place] [address] Rock Rodrigues MD Chronic pain syndrome; Insomnia, unspecified type 11/14/2024 Telephone [facility] [address] [place] [address] Rock Rodrigues MD Referral 11/07/2024 Refill [facility] [address] [place] [address] Rock Rodrigues MD Hypophosphatemia 11/07/2024 Telephone [facility] [address] [place] [address] Rock Rodrigues MD Lab Orders 10/23/2024 Refill [facility] [address] [place] [address] Frank Vallejo MD Chronic pain syndrome; Insomnia, unspecified type 10/23/2024 Refill [facility] [address] [place] [address] Rock Rodrigues MD Insomnia, unspecified type from Last 3 Months Immunizations Immunization Administration Dates Next Due INFLUENZA VACCINE QUADRIVALE NT RECOMBINANT PRESERVATIVE FREE RIV4 01/20/2020,02/09/2019 Influenza injectable quadriv alent preservative free 02/15/2023,01/07/2022,02/17/2021,01/15,01/28/2017,01/22/2016 Influenza, IIV3, injectable 01/07/2015,1 ,02/16/2013,01/10,01/24/2009 Influenza, Recombinant, inje ctable, preservative free 02/01/2024 Novel [id number], preservative-free 04/03/2009 Pfizer Covid-19 Vaccine 12+ 03/29/2023 [...] Clinical Support [facility] [address] [place] [address] Corrie Chen, RN Health Maintenance Due Date [...] - Td or Tdap) 09/24/2025 09/25/2015, 10/02/2008 Alcohol/Substance Use Screening 2026 2025 Tobacco Screening 2026 2025 Mammogram 02/03/2026 02/04/2024, 12/26, 01/20/2022, Additional history [...] POSSIBLE HEMATOLOGY Routine 2025 12:39 PM EDT TSH Routine 2025 12:39 PM EDT T4, FREE Routine 2025 12:39 PM EDT HEPATITIS A ANTIBODY, TOTAL Routine 2025 12:39 PM EDT Hypertension, unspecified type Bariatric surgery status High cholesterol Statin intolerance Primary osteoarthritis of both knees ZINC Routine 2025 12:39 PM EDT Hypertension, unspecified type Bariatric surgery status High cholesterol Statin intolerance VITAMIN B12/FOLATE, SERUM PANEL Routine 2025 12:39 PM EDT Hypertension, unspecified type Bariatric surgery status High cholesterol Statin intolerance VITAMIN D,25-OH,TOTAL,IA Routine 2025 12:39 PM EDT Hypertension, unspecified type Bariatric surgery status High cholesterol Statin intolerance FERRITIN Routine 2025 12:39 PM EDT Hypertension, unspecified type Bariatric surgery status High cholesterol Statin intolerance IRON AND TOTAL IRON BINDING CAPACITY Routine [...] Bariatric surgery status High cholesterol Statin intolerance COLLAGEN CROSS-LINKED N-TELOPEPTIDE (NTX), U Routine 2025 10:15 AM EDT POCT PAULETTE-14 URINE DRUG SCREEN Routine 12/12/2024 [...] Hold Lavender - Possible Hematololgy SEE NOTE [facility] Comment:Specimen will be hel d untested for 8 hours. Call Hematologyif testing is desired. 2025 12:3 9 PM EDT 2025 2:09 PM EDT us Rock Name HISTORICAL/NON ORDERABLE LABS Fi nal Result [facility] [address] [place] [phone] * Vitamin D, 25-Hydroxy, Total, Immunoassay (2025 12:39 PM EDT) Vitamin D 25-OH Total 45.0 >30 ng/mL [facility] Comment: Health Based Reference Values*< 20 ng/mL [id number] ng/mL Insufficient> 30 ng/mL Sufficient*Elver KRUSE. N Engl J Med. 2007;357:266-280There is no well-established upper level of normal vitamin Dlevels. Some laboratories use 50 ng/mL as an upper limit ofnormal. However, toxicity is patient-dependent and may occurat any level. Careful correlation with the patient'spresentation is necessary and, if there is concern forvitamin D toxicity, treatment should be consideredirrespective of the serum level.Care must be taken in interpreting Vitamin D [...] confirmed with another method such as LC-MS/MS. Blood Venous blood specimen / Unknown 2025 12:39 PM EDT 2025 12:39 PM EDT us Rock Rodrigues MD LAB BLOOD ORDERABLES Final Resul t [facility] [address] [place] [address] [phone] * Vitamin B12/Folate, Serum Panel (2025 12:39 PM EDT) Vitamin B12 439 200 - 900 pg/mL [facility] Comment:NORMAL 200-900 PG/ML INDETERMINATE 160-199 PG/ML DEFICIENT < 160 PG/ML Folate 9.2 > or = 4.0 ng/mL [facility] Comment:Reference Values:> o r = 4.0 ng/mL< 4.0 ng/mL suggests folate deficiency Methotrexate, aminopterin and folinic acid(leucovorin) are chemotherapeutic agents whose molecularstructures are similar to folate; therefore, the Architectfolate assay cannot be used for patients using these drugs. Blood Venous blood specimen / Unknown 2025 12:39 PM EDT 2025 12:39 PM EDT us Rock Name LAB BLOOD ORDERABLES Final Resul t [facility] [address] [place] [address] [phone] * (ABNORMAL) CBC auto differential (2025 12:39 PM EDT) White Blood Count 5.6 4.8 - 10.8 X10*3/uL [facility] Red Blood Count 4.43 4.20 - 5.50 X10*6/uL [facility] Hemoglobin 13.7 12.0 - 16.0 g/dl [facility] Hematocrit 40.2 37.0 - 47.0 % [facility] Mean Corpuscular Volume 90.7 80.0 - 98.0 fL [facility] Mean Corpuscular Hemoglobin 30.9 27.0 - 33.0 pg [facility] Mean Corpuscular HGB Conc 34.1 31.0 - 35.0 g/dl [facility] Red Cell Distribution Width 12.2 11.0 - 16.0 % [facility] Platelet Count 270 160 - 400 X10*3/uL [facility] Mean Platelet Volume 12.4(H) 9.4 - 12.3 fL [facility] Neutrophils Percent Auto 48.6 45 - 73 % [facility] Imm Gran Pct Auto 0.4 0.0 - 0.4 % [facility] Lymphocytes Percent Auto 42.6(H) 20 - 40 % [facility] Monocytes Percent Auto 5.9 2 - 11 % [facility] Eosinophils Percent Auto 1.6 0 - 4 % [facility] Basophils Percent Auto 0.9 0 - 2 % [facility] NRBC Pct Auto 0.0 0.0 - 0.2 /100WBC [facility] Neutrophils Absolute Auto 2.8 2.0 - 8.3 x10*3/uL [facility] Imm Gran Abs Auto 0.02 0.00 - 0.03 X10*3/uL [facility] Lymphocytes Absolute Auto 2.4 1.2 - 4.9 X10*3/uL [facility] Monocytes Absolute Auto 0.3 0.1 - 1.2 X10*3/uL [facility] Eosinophils Absolute Auto 0.1 0.0 - 0.4 X10*3/uL [facility] Basophils Absolute Auto 0.1 0.0 - 0.2 X10*3/uL [facility] NRBC Abs Auto 0.000 0.0 - 0.012 X10*3/uL [facility] Blood Venous blood specimen / Unknown 2025 12:39 PM EDT 2025 12:39 PM EDT us Rock Rodrigues MD LAB BLOOD ORDERABLES Final Resul t Performing Organization Address City/[facility]/ZIP Co de Phone Number [facility] [address] [place] [phone] * (ABNORMAL) Iron And Total Iron Binding Capacity (2025 12:39 PM EDT) Iron 213(H) 30 - 160 mcg/dL [facility] Total Iron Binding Capacity 394 228 - 428 mcg/dL [facility] Percent Iron Saturation 54(H) 15 - 50 % [facility] Unsaturated Iron Binding 181 ug/dL [facility] Blood Venous blood specimen / Unknown 2025 12:39 PM EDT 2025 12:39 PM EDT us Rock Rodrigues MD LAB BLOOD ORDERABLES Final Resul t Performing Organization Address [facility] Co de Phone Number [facility] [address] [place] [address] [phone] * Hepatitis A Antibody, Total (2025 12:39 PM EDT) Hepatitis A Antibody IgG Nonreactive Nonreactive [facility] Blood Venous blood specimen / Unknown 2025 12:39 PM EDT 2025 12:39 PM EDT Rock Rodrigues MD LAB BLOOD ORDERABLES Final Resul t Performing Organization Address [facility] de Phone Number [facility] [address] [place] [phone] * Zinc (2025 12:39 PM EDT) Pathologist [facility] Zinc 69 60 - 130 mcg/dL [facility] Comment:This test was develo ped and its analytical performancecharacteristics have been determined by [employer] [place], [place]. It hasnot been cleared or approved by the U.S. Food and DrugAdministration. This assay has been validated pursuantto the CLIA regulations and is used for clinicalpurposes.THIS TEST WAS PERFORMED AT:[employer]/[id number] [place] [address]OVFMVHRCARMELITA WRIGHT MD,PHD Blood Venous blood specimen / Unknown 2025 12:39 PM EDT 2025 12:39 PM EDT Rock Rodrigues MD LAB BLOOD ORDERABLES Final Resul t Performing Organization Address [facility] Co de Phone Number [facility] [address] [place] [phone] * TSH (2025 12:39 PM EDT) Thyroid Stimulating Hormone 1.72 0.32 - 4.0 uIU/mL [facility] Comment:TSH 3rd Generation ( [facility]) 2025 12:3 9 PM EDT 2025 12:39 PM EDT Generic External Data Provider LAB BLOOD ORDERAB LES Final Result Performing Organization Address [facility] de Phone Number [facility] [address] [place] [phone] * T4, Free (2025 12:39 PM EDT) Free T4 (Free Thyroxine) 1.05 0.71 - 1.85 ng/dL [facility] 2025 12:3 9 PM EDT 2025 12:39 PM EDT Generic External Data Provider LAB BLOOD ORDERAB LES Final Result Performing Organization Address [facility] Number [facility] [address] [place] [phone] * PTH, Intact Without Calcium (2025 12:39 PM EDT) Parathyroid Hormone, Intact 58.8 8.7 - 77.1 pg/mL [facility] Blood Venous blood specimen / Unknown 2025 12:39 PM EDT 2025 12:39 PM EDT us Rock Rodrigues MD LAB BLOOD ORDERABLES Final Resul t Performing Organization Address [facility] de Phone Number [facility] [address] [place] [address] [phone] * Ferritin (2025 12:39 PM EDT) Ferritin 17 10 - 250 ng/mL [facility] Blood Venous blood specimen / Unknown 2025 12:39 PM EDT 2025 12:39 PM EDT us Rock Rodrigues MD LAB BLOOD ORDERABLES Final Resul t Performing Organization Address [facility] Co de Phone Number [facility] [address] [place] [address] [phone] * Comprehensive Metabolic Panel (2025 12:39 PM EDT) Sodium 142 135 - 145 mmol/L [facility] Potassium 4.9 3.3 - 5.1 mmol/L [facility] Chloride 108 96 - 108 mmol/L [facility] Carbon Dioxide 25 22 - 29 mmol/L [facility] Anion Gap 14 12 - 20 [facility] Urea Nitrogen (BUN) 13 9 - 16 mg/dL [facility] Creatinine, Serum 0.67 0.5 - 1.4 mg/dL [facility] Estimated Glomerular Filt Rate >60 [facility] Comment:Chronic Kidney Disea se: Estimated GFR < 60 mL/min/1.29u8Dfofss Kidney Disease: Estimated GFR < 15 mL/min/1.73m2 Glucose 81 60 - 115 mg/dL [facility] Calcium 9.1 8.4 - 10.2 mg/dL [facility] Bilirubin, Total 0.3 0.0 - 1.0 mg/dL [facility] Aspartate Amino Transferase 24 5 - 31 U/L [facility] Alanine Aminotransferase 23 0 - 31 U/L [facility] Total Protein 7.2 6.5 - 8.0 g/dL [facility] Albumin Level 4.4 3.5 - 5.0 g/dL [facility] Alkaline Phosphatase 51 39 - 117 U/L [facility] Blood Venous blood specimen / Unknown 2025 12:39 PM EDT 2025 12:39 PM EDT us Rock Rodrigues MD LAB BLOOD ORDERABLES Final Resul t [facility] [address] [place] [address] [phone] * Collagen Cross-Linked N-Telopeptide (NTx), U (2025 10:15 AM EDT) Pathologist [facility] N Telopetide (NTx) 10 see note [facility] Comment:Result Units: nM BCE /mM creatPremenopausal Females: 4 - 64 nM BCE/mM creatResults are primarily used for monitoring theresponse to therapy. A value within thepremenopausal range does not rule out osteoporosisnor the need for therapyUnits of Measure: nM BCE/mM creat CREATININE, RANDOM URINE 46 20 - 275 mg/dL [facility] Comment:THIS TEST WAS PERFOR MED AT:[employer] [id number] [place] [address]BMTZYAZCARMELITA WRIGHT MD,PHD 2025 10:1 5 AM EDT 2025 12:45 PM EDT Generic External Data Provider LAB URINE ORDERAB LES Final Result Performing Organization Address City/State/[facility] Co de Phone Number [facility] [address] [place] [phone] * (ABNORMAL) POCT PAULETTE-14 Urine Drug Screen (12/12/2024 1:21 PM EDT) [facility] THC Positive Negative Cocaine Screen, Urine Negative [...] - 12/12/2024 1:21 PM EDT UTOX cup Lot#[id number] Exp. 01/30/26 Internal Pass Control Rock Rodrigues MD POINT OF CARE TEST ENTER/EDIT OR DERABLES Final Result * Phencyclidine Screen, Urine (12/12/2024 12:00 AM EDT) Phencyclidine Screen Urine Not Detected Not Detect [facility] Comment:Phencyclidine cut-of f is 25 ng/mL.Positive results are unconfirmed and should not be used fornon-medical purposes. Urine 12/12/2024 12/12/2024 Rock Rodrigues MD LAB URINE ORDERABLES Final Resul t Performing Organization Address [facility] Co de Phone Number [facility] [address] [place] [phone] * Drug Monitoring, Methadone Metabolite, Screen, Urine (12/12/2024 12:00 AM EDT) Methadone Screen, Urine Not Detected Not Detect ng/mL [facility] Comment:Methadone cut-off is 300 ng/mL.Positive results are unconfirmed and should not be used fornon-medical purposes. Urine 12/12/2024 12/12/2024 us Rock Rodrigues MD LAB URINE ORDERABLES Final Resul t Performing Organization Address [facility] de Phone Number [facility] [address] [place] [phone] * BI Mammogram Screening Tomosynthesis Bilateral (02/04/2024 1:40 PM EDT) Anatomical Region Laterality Modality Breast Bilateral Mammography 02/04/2024 1:40 PM EDT Narrative 02/17/2024 9:45 PM EDT [facility] [address] [place] [address] Mammography Report Signed Patient: Coleen Tyler MR#: [id number] : 1960 Acct:[id number] Age/Sex: 64 / F ADM Date: 02/04/24 Loc: HO.MAMMO Attending Dr: Rock Rodrigues MD Ordering Physician: Name,Rock MD Results: 1Negative Date of Service: 02/04/24 Follow Up: 1 Year From Orig inal Mammogram Procedure(s): MM tomosynthesis screening BI Accession Number(s): [id number] cc: Rock Rodrigues MD EXAMINATION: MM SCREENING [...] 02/17/24 2142 DD/ 1340 TD/TT: 02/04/24 1358 Senior Visual Designer: Procedure Note Donotuseinterpreter, Image - 02/17/2024 [facility] [address] [place] [address] Dr. [place], [place] [address] Mammography Report Signed Patient: JaysonDianaMR#: [id number] : 1Acct:[id number] Age/Sex: 64 / FADM Date: 02/04/24 Loc: HO.MAMMO Attending Dr: Rock Rodrigues MD Ordering Physician: Rock Rodrigues MDResults: 1Negative Date of Service: 02/04/24Follow Up: 1 Year From Orig inal Mammogram Procedure(s): MM tomosynthesis screening BI Accession Number(s): [id number] cc: Name,Rock DE PAZ EXAMINATION: MM SCREENING [...] 02/17/24 2142 DD/ 1340 TD/TT: 02/04/24 1358 Senior Visual Designer: Rock Rodrigues MD [facility] PROCEDURES Edited Result - Final * (ABNORMAL) Lipid Panel, Standard (12/07/2023 11:55 AM EDT) Triglycerides 236(H) <150 mg/dL [facility] Comment:Desirable Triglyceri de: less than 150 mg/dLBorderline High Triglyceride 150-199 mg/dLHigh Triglyceride: 200-499 mg/dLVery High Triglyceride: greater than or equal to 5OO mg/dL Cholesterol 300(H) <200 mg/dL [facility] Comment:Desirable Cholestero l: less than 200 mg/dLBorderline High Cholesterol: 200-239 mg/dLHigh Cholesterol: greater than 239 mg/dL LDL Cholesterol Calculated 214(H) <100 mg/dL [facility] Comment:Desirable LDL: less than 100 mg/dLNear Optimal/Above Optimal LDL: 110- 129 mg/dLBorderline High LDL: 130-159 mg/dLHigh LDL: 160-189 mg/dLVery High LDL: greater than or equal to 190 mg/dL HDL Cholesterol 39(L) >40 mg/dL [facility] Comment:Desirable HDL: great er than 40 mg/dL Note: This HDL assay may give artificially low results in patients with liver disease. 12/07/2023 11:5 5 AM EDT 12/07/2023 11:55 AM EDT us Generic External Data Provider LAB BLOOD ORDERAB LES Final Result [facility] [address] [place] [phone] * Hm Colonoscopy (11/22/2023) Colonoscopy Normal [...] has been evaluated with computer assisted technology. [facility] Engineer First Assistant: SEE COMMENT [facility] Comment: VICTOR MANUEL SPAULDING(ASCP) CT screening location: [address] [address] HPV nRNA E6/E7 Not Detected Not Detected [facility] Comment: Methodology: Second Language Tutor-Mediated Amplification This assay detects E6/E7 viral messenger RNA (mRNA) from 14 high-risk HPV types (16,18,31,33,35,39,45,51,52,56,58,59,66,68). Cervical sources are required for HPV testing. If a vaginal source from a patient who has had a total hysterectomy with removal of cervix was submitted, please contact the testing laboratory for alternative testing options. For additional information, please refer to [email or web address] (This link if provided for information/ educational [...] SYSTEM Statement Of Adequacy: SATISFACTORY FOR EVALUATION [facility] 01/07/2022 3:18 PM EDT Tisha CHAMBERSM LAB PATHOLOGY ORDERABLES Final Result Performing Organization Address [facility] Co de Phone Number [facility] [address] * HEPATITIS C AB W/REFL TO HCV RNA, QN, PCR (12/23/2021 2:35 PM EDT) HEPATITIS C ANTIBODY NON-REACT MARK NON-[facility] INDEX 0.12 <1.00 [facility] Comment: HCV antibody was non-reactive. There is no laboratory evidence of HCV infection. In most cases, no further action is required. However, if recent HCV exposure is suspected, a test for HCV RNA (test code 69317) is suggested. For additional information please refer to [email or web address]/[email or web address] (This link is being provided for informational/ educational purposes only.) 12/23/2021 2:35 PM EDT Rock Rodrigues MD HISTORICAL/NON ORDERABLE LABS Fi nal Result Performing Organization Address [facility] Co de Phone Number [facility] [address] * HIV 1/2 ANTIGEN/ANTIBODY,FOURTH GENERATION W/RFL [...] purpose. For additional information please refer to http://education.EadBox/faq/UDB992 (This link is being provided for informational/ educational purposes only.) The performance of this assay has not been clinically validated in patients less than 2 years old. 02/17/2021 3:50 PM EDT us Rock Rodrigues MD LAB BLOOD ORDERABLES Final Resul t [facility] [address] from Last 3 Months or Most Recently Relevant to Health Maintenance Insurance [place] [address] [place] [address] [facility] [employer] MEDICARE REPLACEMENT Care Teams Asphalt Distributor Tender Relationship Specialty Start Date End Date Name, MD Rock [address] [place] [address] PCP - General Family Medicine 07/04/15
--- OUTSIDE RECORDS SUMMARY | 2025-01-11 14:51 | XMS_ITS | Encounter Summary ---
Author Organization [employer] Address [address] [place] [address] Care Team Providers Care Roll Forger Name Role Phone Name, Rock DE PAZ Primary Care Provider [phone] Reason for Visit * Reason Onset Date Comments Med Refill 05/09/2024 Encounter Details Date Type Department Care Team (Late st Contact Info) Description 05/09/2024 Refill [facility] MED[facility] [address] [place], [place] [phone] Name, MD Rock [address] [place] [address] Rhinorrhea Social History Tobacco Use Types Packs/Day [...] Description 03/13/2025 1:00 PM EST Clinical Support [facility] [address] [place] [address] Corrie Chen, SCOUT documented as of this encounter Visit Diagnoses Diagnosis Rhinorrhea Other diseases of nasal cavity and sinuses documented in this encounter Additional Health Concerns Assessment Noted Time PHQ-9 Depression Total Score: 12 024 2:16 PM EDT documented as of this encounter Care Teams Roll Forger Relationship Specialty Start Date End Date Name, MD Rock [address] [place] [address] PCP - General Family Medicine 07/04/15 documented as of this encounter
--- OUTSIDE RECORDS SUMMARY | 2025-01-11 14:51 | XMS_ITS | Encounter Summary ---
Author Organization [employer] Address [address] [place] [address] Care Team Providers Care Mission Analyst Name Role Phone Name, Rock DE PAZ Primary Care Provider [phone] Reason for Visit * Reason Onset Date Comments Med Refill 08/01/2024 Encounter Details Date Type Department Care Team (Late st Contact Info) Description 08/01/2024 Refill [facility] MEDICINE [address] [place], [place] [phone] Name, MD Rock [address] [place] [address] Chronic pain syndrome Social History Tobacco Use [...] Description 03/13/2025 1:00 PM EST Clinical Support [facility] [address] [place] [address] Corrie Chen, SCOUT documented as of this encounter Visit Diagnoses Diagnosis Chronic pain syndrome documented in this encounter Additional Health Concerns Assessment Noted Time PHQ-9 Depression Total Score: 17 025 2:50 PM EST documented as of this encounter Care Teams Mission Analyst Relationship Specialty Start Date End Date Name, MD Rock [address] [place] [address] PCP - General Family Medicine 07/04/15 documented as of this encounter
--- OUTSIDE RECORDS SUMMARY | 2025-01-11 14:51 | XMS_ITS | Encounter Summary ---
Author Organization [employer] Address [address] [place] [address] Care Team Providers Care Elevator Builder Name Role Phone Name, Rock DE PAZ Primary Care Provider [phone] Reason for Visit * Reason Onset Date Comments Med Refill 07/09/2024 Encounter Details Date Type Department Care Team (Late st Contact Info) Description 07/09/2024 Refill [facility] [address] [place], [place] [phone] Name, MD Rock [address] [place] [address] Chronic pain syndrome Social History Tobacco Use [...] [facility] [address] [place] [address] Corrie Chen, SCOUT documented as of this encounter Visit Diagnoses Diagnosis Chronic pain syndrome documented in this encounter Additional Health Concerns Assessment Noted Time PHQ-9 Depression Total Score: 17 025 2:50 PM EST documented as of this encounter Care Teams Elevator Builder Relationship Specialty Start Date End Date Name, MD Rock [address] [place] [address] PCP - General Family Medicine 07/04/15 documented as of this encounter
--- OUTSIDE RECORDS SUMMARY | 2025-01-11 14:52 | XMS_ITS | Encounter Summary ---
Author Organization [employer] Address [address] [place] [address] 7 [place] [address] Care Team Providers Care Cold Mill Inspector Name Role Phone Name, Rock DE PAZ Primary Care Provider [phone] Reason for Visit * Reason Comments Med Refill Encounter Details Date Type Department Care Team (Late st Contact Info) Description 11/18/2022 Refill [facility] MED[facility]INE [address] [place] [address] [phone] Name, MD Rock [address] [place] [address] Chronic pain syndrome Social History Tobacco Use [...] Description 03/13/2025 1:00 PM EST Clinical Support [facility] [address] [place] [address] Corrie Chen, SCOUT documented as of this encounter Visit Diagnoses Diagnosis Chronic pain syndrome documented in this encounter Care Teams Cold Mill Inspector Relationship Specialty Start Date End Date Name, MD Rock [address] [place] [address] PCP - General Family Medicine 07/04/15 documented as of this encounter
--- OUTSIDE RECORDS SUMMARY | 2025-01-11 14:52 | XMS_ITS | Encounter Summary ---
Author Organization [employer] Address [address] [place] [address] Care Team Providers Care Woodworking Craftsman Name Role Phone Name, Rock DE PAZ Primary Care Provider [phone] Reason for Visit * Reason Onset Date Comments Med Refill 01/31/2024 Encounter Details Date Type Department Care Team ([facility] st Contact Info) Description 01/31/2024 Refill [facility] MED & PEDS [address] [place] [address] Juhi Diaz, TITLE I PARAPROFESSIONAL [address] [place] [address] Chronic pain syndrome; Insomnia, unspecified type Social [...] Description 03/13/2025 1:00 PM EST Clinical Support [facility] MEDICINE 230 [place] [address] Corrie Chen, RN documented as of this encounter Visit Diagnoses Diagnosis Chronic pain syndrome Insomnia, unspecified type documented in this encounter Additional Health Concerns Assessment Noted Time PHQ-9 Depression Total Score: 12 024 2:16 PM EDT documented as of this encounter Care Teams Woodworking Craftsman Relationship Specialty Start Date End Date Name, MD Rock [address] [place] [address] PCP - General Family Medicine 07/04/15 documented as of this encounter
--- OUTSIDE RECORDS SUMMARY | 2025-01-11 14:52 | XMS_ITS | Encounter Summary ---
Author Organization [employer] Address [address] [place] [address] [place] [address] Care Team Providers Care Fishing Gear Mechanic Name Role Phone Name, Rock DE PAZ Primary Care Provider [phone] Reason for Visit * Reason Onset Date Comments Med Refill 02/09/2024 Encounter Details Date Type Department Care Team (Late st Contact Info) Description 02/09/2024 Refill [facility] MEDICINE [address] [place], [place] [phone] Name, MD Rock [address] [place] [address] Insomnia, unspecified type Social History Tobacco Use [...] Description 03/13/2025 1:00 PM EST Clinical Support [facility] MED[facility]INE [address] [place] [address] Corrie Chen, SCOUT documented as of this encounter Visit Diagnoses Diagnosis Insomnia, unspecified type documented in this encounter Additional Health Concerns Assessment Noted Time PHQ-9 Depression Total Score: 12 024 2:16 PM EDT documented as of this encounter Care Teams Fishing Gear Mechanic Relationship Specialty Start Date End Date Name, MD Rock [address] [place] [address] PCP - General Family Medicine 07/04/15 documented as of this encounter
== END 2025-01-11 12:47 | disposition home or self-care (01) ==
LOC: HO.LAB 12:46
PROVIDERS: PCP Internal Medicine Geriatric Medicine; Visit Provider Internal Medicine Geriatric Medicine
DX: I10 Essential (primary) hypertension (principal); M81.0 Age-related osteoporosis without current pathological fracture; E78.00 Pure hypercholesterolemia, unspecified; Z78.9 Other specified health status; Z98.84 Bariatric surgery status
CPT/HCPCS: 36415; 84425

== ENCOUNTER 2025-01-15 07:48 | Outpatient (REF) | payer MEDICARE, MEDICAID, SELFPAY ==
--- NOTE | ~2025-01-15 | FL_ITS ---
EXAMINATION: XR UPPER GI SERIES WITH BARIUM SWALLOW CLINICAL INFORMATION: Gastroesophageal reflux disease . COMPARISON: None available. TECHNIQUE: Seen upper GI air contrast study and barium swallow was performed. FINDINGS: Following oral administration of thick barium and effervescent granules there is propagation of bolus from the oral cavity through the pharynx, esophagus into stomach without any evidence of obstruction, narrowing or stricture. There is slow initiation of bolus from the oral cavity on several occasions. No laryngeal penetration or aspiration seen. The esophagus is widely patent On placing patient supine and prone lying there is evidence of previous gastric sleeve surgery. there is a distended mid and distal esophagus simulating small hiatal hernia with moderate food residue in mid and distal esophagus which clears with time. The mucosal pattern of the esophagus, stomach and the duodenum is normal. The course, caliber and peristalsis of stomach and the duodenum is normal. On oral administration of saltine crackers with barium paste in upright view there is normal oral mastication and propagation bolus from the oral cavity through the pharynx, esophagus into stomach. No obstruction to solid food. FLUOROSCOPY TIME: 2 minute 12 seconds DOSE AREA PRODUCT: 52.39 uGy-m2 (microgray-meter squared) FL/FL upper GI w air w Ba Swallow IMPRESSION: There is slow initiation of bolus from the oral cavity on several occasions. The esophagus is widely patent except for distended mid and distal esophagus which clears with time. Gastric sleeve surgical changes. No hiatal hernia suspected. There is normal mucosal pattern and peristalsis of stomach and the duodenum. Electronically signed by: Warner Chase MD 01/15/2025 08:47 AM EDT
--- OUTSIDE RECORDS SUMMARY | 2025-01-15 07:50 | XMS_ITS | Encounter Summary ---
Author Organization [employer] Address [address] [place] [address] Care Team Providers Care Vulcanizer Rubber Plate Name Role Phone Name, Rock DE PAZ Primary Care Provider Reason for Visit * Reason Comments Med Refill Encounter Details Date Type Department Care Team (Late st Contact Info) Description 04/08/2022 Refill [facility] MED & PEDS [address] [place] [address] Yoni Mccormick MD [address] [place] [phone] Social History Tobacco Use Types Packs/Day Years [...] PM EST Clinical Support [facility] MEDICINE [address] [place] [phone] Corrie Chen RN documented as of this encounter Visit Diagnoses Not on filedocumented in this encounter Care Teams Vulcanizer Rubber Plate Relationship Specialty Start Date End Date Name, MD Rock [address] [place] [phone] PCP - General Family Medicine 07/04/15 documented as of this encounter
--- OUTSIDE RECORDS SUMMARY | 2025-01-15 07:50 | XMS_ITS | Encounter Summary ---
Author Organization [employer] Address [address] [place] [address] 7 [place] [address] Care Team Providers Care Replenishment Associate Name Role Phone Name, Rock DE PAZ Primary Care Provider [phone] Reason for Visit * Reason Onset Date Comments Medication Question 05/31/2023 Encounter Details Date Type Department Care Team ([facility] st Contact Info) Description 05/31/2023 Telephone [facility] MEDICINE [address] [place], [place] [phone] Name, MD Rock [address] [place] [address] Medication Question Social History Tobacco Use Types [...] a week . pt. Advised to call [facility] because medication was prescribe by Multi Media Specialist. Pt. States grader green meat also prescribe blood works before prescribing these medication, but as per pt. PCP is managing kidney related function and low phosphorus so want to discuss about these medication. Pt. Advised that message will be sent to PCP for review. Please review and advise. Tc from pt requesting to speak with provider in regards to two medications that are being offered by the Multi Media Specialist which are Pimwall which has to be injected every single day and Levaradi which is once a week . Pt would like to discuss this with PCP or nurse to verify if it's okay and which medication should she go for due to her medical History. Please contact pt @ [phone] * Telephone Encounter - Esperanza Bravo - 05/31/2023 2:02 PM EST Tc from pt requesting to speak with provider in regards to two medications that are being offered by the [facility] [employer] Specialist which are Pimwall which has to be injected every single day and Levaradi whichis once a week . Pt would like to discuss this with PCP or nurse to verify if it's okay and which medication should she go for due to her medical History. Please contact pt @ [phone] documented in this encounter Plan of Treatment Upcoming Encounters Date Type Department Care Team (Late st Contact Info) Description 03/13/2025 1:00 PM EST Clinical Support [facility] MEDICINE [address] [place] [address] Corrie Chen, RN documented as of this encounter Visit Diagnoses Not on filedocumented in this encounter Additional Health Concerns Assessment Noted Time PHQ-9 Depression Total Score: 21 023 10:14 AM EDT documented as of this encounter Care Teams Replenishment Associate Relationship Specialty Start Date End Date Name, MD Rock [address] [place] [phone] PCP - General Family Medicine 07/04/15 documented as of this encounter
--- OUTSIDE RECORDS SUMMARY | 2025-01-15 07:50 | XMS_ITS | Encounter Summary ---
Author Organization [employer] Address [address] [place] [address] [place] [address] Care Team Providers Care Landscape Gardener Name Role Phone Name, Rock DE PAZ Primary Care Provider [phone] Reason for Visit * Reason Onset Date Comments Med Refill 04/27/2024 Encounter Details Date Type Department Care Team (Late st Contact Info) Description 04/27/2024 Refill [facility] MEDICINE [address] [place], [place] [phone] Name, MD Rock [address] [place] [address] Chronic pain syndrome Social History Tobacco Use [...] Description 03/13/2025 1:00 PM EST Clinical Support [facility] MEDICINE [address] [place] [address] Corrie Chen, SCOUT documented as of this encounter Visit Diagnoses Diagnosis Chronic pain syndrome documented in this encounter Additional Health Concerns Assessment Noted Time PHQ-9 Depression Total Score: 12 024 2:16 PM EDT documented as of this encounter Care Teams Landscape Gardener Relationship Specialty Start Date End Date Name, MD Rock [address] [place] [address] PCP - General Family Medicine 07/04/15 documented as of this encounter
--- OUTSIDE RECORDS SUMMARY | 2025-01-15 07:50 | XMS_ITS | Encounter Summary ---
Author Organization [employer] Address [address] [place] [address] Care Team Providers Care Software Verification Engineer Name Role Phone Name, Rock DE PAZ Primary Care Provider [phone] Encounter Details Date Type Department Care Team (Late st Contact Info) Description 04/30/2022 Orders Only [facility]S [address] [place] [address] Cheyenne Sánchez LPN Social History Tobacco Use [...] 1:00 PM EST Clinical Support [facility] MEDICINE [address] [place] [address] Corrie Chen RN documented as of this [...] Telopetide (NTx) 50 see note [facility] Comment:Result Units: nM BCE /mM creatPremenopausal Females: 4 - 64 nM BCE/mM creatResults are primarily used for monitoring theresponse to therapy. A value within thepremenopausal range does not rule out osteoporosisnor the need for therapyUnits of Measure: nM BCE/mM creat CREATININE, RANDOM URINE 114 20 - 275 mg/dL [facility] Comment:THIS TEST WAS PERFOR MED AT:[employer]/[id number] [place] [address]MMOEVDRCARMELITA WRIGHT MD,PHD 05/04/2022 3:06 PM EST 05/04/2022 3:22 PM EST us [facility] External Provider LAB URI NE ORDERABLES Final Result [facility] [address] [place] [phone] * Protein Electrophoresis and Earling/Lambda Light Chains (05/04/2022 2:30 PM EST) Prot Elec - Total Protein 7.0 6.1 - 8.1 g/dL [facility] Prot Elec - Albumin 4.2 3.8 - 4.8 g/dL [facility] Prot Elec - Alpha1 0.3 0.2 - 0.3 g/dL [facility] Prot Elec - Alpha2 0.8 0.5 - 0.9 g/dL [facility] Prot Elec - Beta 1 0.6 0.4 - 0.6 g/dL [facility] Prot Elec - Beta 2 0.3 0.2 - 0.5 g/dL [facility] Prot Elec - Gamma 0.8 0.8 - 1.7 g/dL [facility] PES - Abn Protein Band 1 TNP [facility] PES-Abn Protein Band 2 TNP [facility] PES-Abn Protein Band 3 [facility] Prot Elec - Interpretation SEE NOTE [facility] Comment:Normal Electrophoret ic PatternTHIS TEST WAS PERFORMED AT:[employer] [address] ([address] [address]GFRZBNANCY ADKINS MD 05/04/2022 2:30 PM EST 05/04/2022 2:33 PM EST us [facility] External Provider LAB BLO OD ORDERABLES Final Result Performing Organization Address City/[facility]/ZIP Co de Phone Number [facility] [address] [place] [phone] * Alkaline Phosphatase, Bone Specific (05/04/2022 2:30 PM EST) Alkaline Phosphatase, Bone Specific 11.6 5.6 - 29.0 mcg/L [facility] Comment:Reference Range, Pre menopausal (mcg/L) 35-45 years 5.0-18.2THIS TEST WAS PERFORMED AT:[employer]/[id number] [place] [address]XUZUUDJCARMELITA WRIGHT MD,PHD 05/04/2022 2:30 PM EST 05/04/2022 2:33 PM EST [facility] External Provider LAB BLO OD ORDERABLES Final Result Performing Organization Address [facility] Co de Phone Number [facility] [address] [place] [phone] * Thyroid Peroxidase And Thyroglobulin Antibodies (05/04/2022 2:30 PM EST) Thyroglobulin Antibodies <1 < or = 1 IU/mL [facility] Comment:THIS TEST WAS PERFOR MED AT:[employer] [address] ([address], [place] [address]RBXYONANCY ADKINS MD 05/04/2022 2:30 PM EST 05/04/2022 2:33 PM EST [facility] External Provider LAB BLO OD ORDERABLES Final Result Performing Organization Address [facility] de [facility] Number [facility] [address] [place] [phone] * (ABNORMAL) Thyroglobulin, LC/MS/MS (05/04/2022 2:30 PM EST) Thyroglobulin, LC/MS/MS <0.1(A) ng/mL [facility] Comment:Reference Range: Int act Thyroid 2.8-40.9 Athyrotic <0.1 Note: Abnormal flagging is based on the reference interval for patients with intact thyroid.This test was performed using the Kristen Coulterchemiluminescent method. Values obtained fromdifferent assay methods cannot be usedinterchangeably. Thyroglobulin levels, regardlessof value, should not be interpreted as absoluteevidence of the presence or absence of disease. Thyroglobulin Comment See Below [facility] Comment:Thyroglobulin antibo dies (TGAB) interfere withthyroglobulin (TG) assays; therefore, TGAB assayshould always be performed in conjunction with aTG assay.For additional information, please refer tohttp://education.Senior Living/faq/JSN584(This link is being provided for informational/educational purposes only.)THIS TEST WAS PERFORMED AT:[facility] [place] [address] (1)[place] [address]JGQSJNANCY ADKINS MD 05/04/2022 2:30 PM EST 05/04/2022 2:33 PM EST [facility] External Provider LAB BLO OD ORDERABLES Final Result Performing Organization Address [facility] Co de Phone Number [facility] [address] [place] [phone] * PTH, Intact Without Calcium (05/04/2022 2:30 PM EST) PTHI 73 16 - 77 pg/mL [facility] Comment:Interpretive Guide I ntact PTH Calcium -------Normal Parathyroid Normal NormalHypoparathyroidism Low or Low Normal LowHyperparathyroidism Primary Normal or High High Secondary High Normal or Low Tertiary High HighNon-Parathyroid Hypercalcemia Low or Low Normal High Calcium (PTHI) 8.9 8.6 - 10.4 mg/dL [facility] Comment:THIS TEST WAS PERFOR MED AT:[facility] [place] [address] (1)[place] [address]RWITNNANCY ADKINS MD 05/04/2022 2:30 PM EST 05/04/2022 2:33 PM EST [facility] External Provider LAB BLO OD ORDERABLES Final Result Performing Organization Address [facility] Co de Phone Number [facility] [address] [place] [phone] * TSH (05/04/2022 2:30 PM EST) Thyroid Stimulating Hormone 3.46 0.32 - 4.0 uIU/mL [facility] Comment:Note: A sustained TS H level above 2.5 uIU/mL may warrant further investigation. TSH 3rd Generation ([facility]) 05/04/2022 2:30 PM EST 05/04/2022 2:33 PM EST [facility] External Provider LAB BLO OD ORDERABLES Final Result [facility] [address] [place] [phone] * T4, Free (05/04/2022 2:30 PM EST) Free T4 (Free Thyroxine) 1.14 0.71 - 1.85 ng/dL [facility] 05/04/2022 2:30 PM EST 05/04/2022 2:33 PM EST [facility] External Provider LAB BLO OD ORDERABLES Final Result [facility] [address] [place] [phone] * Vitamin D, 25-Hydroxy, Total, Immunoassay (05/04/2022 2:30 PM EST) Vitamin D 25-OH Total 25.8 >30 ng/mL [facility] Comment:Health Based Referen ce Values*< 20 ng/mL Pnndwqaip26-56 ng/mL Insufficient> 30 ng/mL Sufficient*Elver KRUSE. N [...] 2:30 PM EST 05/04/2022 2:33 PM EST [facility] External Provider LAB BLO OD ORDERABLES Final Result Performing Organization Address City/[facility]/ZIP Co de Phone Number [facility] [address] [place] [phone] [phone] * Phosphate (As Phosphorus) (05/04/2022 2:30 PM EST) Phosphorus 3.0 2.7 - 4.5 mg/dL [facility] 05/04/2022 2:30 PM EST 05/04/2022 2:33 PM EST [facility] External Provider LAB BLO OD ORDERABLES Final Result Performing Organization Address [facility]/ZIP Co de Phone Number [facility] [address] [place] [phone] * Comprehensive Metabolic Panel (05/04/2022 2:30 PM EST) Sodium 138 135 - 145 mmol/L [facility] Potassium 4.8 3.3 - 5.1 mmol/L [facility] Chloride 106 96 - 108 mmol/L [facility] Carbon Dioxide 24 22 - 29 mmol/L [facility] Anion Gap 13 12 - 20 [facility] Urea Nitrogen (BUN) 15 9 - 16 mg/dL [facility] Creatinine, Serum 0.85 0.5 - 1.4 mg/dL [facility] Estimated Glomerular Filt Rate >60 [facility] Comment:NOTE: For -Am erican individuals, multiply the result by 1.210.Chronic Kidney Disease: Estimated GFR < 60 mL/min/1.62f7Fkecmm Kidney Disease: Estimated GFR < 15 mL/min/1.73m2 Glucose 90 60 - 115 mg/dL [facility] Calcium 9.0 8.4 - 10.2 mg/dL [facility] Bilirubin, Total 0.3 0.0 - 1.0 mg/dL [facility] Aspartate Amino Transferase 26 5 - 31 U/L [facility] Alanine Aminotransferase 28 0 - 31 U/L [facility] Total Protein 6.8 6.5 - 8.0 g/dL [facility] Albumin Level 4.2 3.5 - 5.0 g/dL [facility] Alkaline Phosphatase 61 39 - 117 U/L [facility] 05/04/2022 2:30 PM EST 05/04/2022 2:33 PM EST us [facility] External Provider LAB BLO OD ORDERABLES Final Result Performing Organization Address City/State/[facility] Co de Phone Number [facility] [address] [place] [phone] documented in this encounter Visit Diagnoses Not on filedocumented in this encounter Care Teams Software Verification Engineer Relationship Specialty Start Date End Date Name, MD Rock [address] [place] [address] PCP - General Family Medicine 07/04/15 documented as of this encounter
--- OUTSIDE RECORDS SUMMARY | 2025-01-15 07:50 | XMS_ITS | Encounter Summary ---
Author Organization [employer] Address [address] [place] [address] 7 [place] [address] Care Team Providers Care Publications Editor Name Role Phone Name, Rock DE PAZ Primary Care Provider [phone] Reason for Visit * Reason Comments Med Refill Encounter Details Date Type Department Care Team ([facility] st Contact Info) Description 04/26/2023 Refill [facility] MEDICINE [address] [place], [place] [phone] Name, MD Rock [address] [place] [address] Insomnia, unspecified type Social History Tobacco Use [...] Description 03/13/2025 1:00 PM EST Clinical Support [facility] [address] [place] [address] Corrie Chen RN documented as of this encounter Visit Diagnoses Diagnosis Insomnia, unspecified type documented in this encounter Additional Health Concerns Assessment Noted Time PHQ-9 Depression Total Score: 21 023 10:14 AM EDT documented as of this encounter Care Teams Publications Editor Relationship Specialty Start Date End Date Name, MD Rock [address] [place] [address] PCP - General Family Medicine 07/04/15 documented as of this encounter
--- OUTSIDE RECORDS SUMMARY | 2025-01-15 07:50 | XMS_ITS | Encounter Summary ---
Author Organization [employer] Address [address] [place] [address] Care Team Providers Care International Representative Name Role Phone Name, Rock DE PAZ Primary Care Provider [phone] Encounter Details Date Type Department Care Team (Late st Contact Info) Description 05/06/2022 Orders Only [facility] [address] [place] [id number] Karen Falk LPN Social History Tobacco Use [...] [facility] [address] [place] [address] [phone] Corrie Chen, SCOUT documented as of this encounter Visit Diagnoses Not on filedocumented in this encounter Care Teams International Representative Relationship Specialty Start Date End Date Name, MD Rock [address] [place] [id number] PCP - General Family Medicine 07/04/15 documented as of this encounter
--- OUTSIDE RECORDS SUMMARY | 2025-01-15 07:51 | XMS_ITS | Encounter Summary ---
Author Organization [employer] Address [address] [place] [address] Care Team Providers Care Per Diem Name Role Phone Name, Rock DE PAZ Primary Care Provider [phone] Reason for Visit * Reason Onset Date Comments Med Refill 09/15/2024 Encounter Details Date Type Department Care Team (Late st Contact Info) Description 09/15/2024 Refill [facility] [address] [place], [place] [phone] Name, MD Rock [address] [place] [address] Hypophosphatemia Social History Tobacco Use Types Packs/Day [...] Description 03/13/2025 1:00 PM EST Clinical Support [facility] [address] [place] [address] Corrie Chen, SCOUT documented as of this encounter Visit Diagnoses Diagnosis Hypophosphatemia Disorders of phosphorus metabolism documented in this encounter Additional Health Concerns Assessment Noted Time PHQ-9 Depression Total Score: 17 025 2:50 PM EST documented as of this encounter Care Teams Per Diem Relationship Specialty Start Date End Date Name, MD Rock [address] [place] [address] PCP - General Family Medicine 07/04/15 documented as of this encounter
--- OUTSIDE RECORDS SUMMARY | 2025-01-15 07:51 | XMS_ITS | Encounter Summary ---
Author Organization [employer] Address [address] [place] [address] Care Team Providers Care Skein Yard Drier Name Role Phone Name, Rock DE PAZ Primary Care Provider [phone] Reason for Visit * Reason Onset Date Comments Med Refill 03/10/2024 Encounter Details Date Type Department Care Team (Late st Contact Info) Description 03/10/2024 Refill [facility] [address] [place], [place] [phone] Name, MD Rock [address] [place] [address] Insomnia, unspecified type Social History Tobacco Use [...] 03/13/2025 1:00 PM EST Clinical Support [facility] [address] [place] [address] Corrie Chen, SCOUT documented as of this encounter Visit Diagnoses Diagnosis Insomnia, unspecified type documented in this encounter Additional Health Concerns Assessment Noted Time PHQ-9 Depression Total Score: 12 024 2:16 PM EDT documented as of this encounter Care Teams Skein Yard Drier Relationship Specialty Start Date End Date Name, MD Rock [address] [place] [address] PCP - General Family Medicine 07/04/15 documented as of this encounter
--- OUTSIDE RECORDS SUMMARY | 2025-01-15 07:51 | XMS_ITS | Encounter Summary ---
Author Organization [employer] Address [address] [place] [address] [address] [place] [address] Care Team Providers Care Fishing Vessel Captain Name Role Phone Name, Rock DE PAZ Primary Care Provider [phone] Reason for Visit * Reason Comments Med Refill Encounter Details Date Type Department Care Team (Late st Contact Info) Description 11/18/2022 Refill [facility] [address] [place] [address] [phone] Name, MD Rock [address] [place] [address] Chronic pain syndrome Social History Tobacco Use [...] Description 03/13/2025 1:00 PM EST Clinical Support [facility] [address] [place] [address] Corrie Chen, SCOUT documented as of this encounter Visit Diagnoses Diagnosis Chronic pain syndrome documented in this encounter Care Teams Fishing Vessel Captain Relationship Specialty Start Date End Date Name, MD Rock [address] [place] [address] PCP - General Family Medicine 07/04/15 documented as of this encounter
--- OUTSIDE RECORDS SUMMARY | 2025-01-15 07:51 | XMS_ITS | Encounter Summary ---
Author Organization [employer] Address [address] [place] [address] Care Team Providers Care Online Banking Specialist Name Role Phone Name, Rock DE PAZ Primary Care Provider [phone] Reason for Visit * Reason Onset Date Comments Med Refill 09/10/2024 Encounter Details Date Type Department Care Team (Late st Contact Info) Description 09/10/2024 Refill [facility] [address] [place], [place] [phone] Name, MD Rock [address] [place] [address] Hypophosphatemia Social History Tobacco Use Types Packs/Day [...] Clinical Support [facility] [address] [place] [address] Corrie hCen, SCOUT documented as of this encounter Visit Diagnoses Diagnosis Hypophosphatemia Disorders of phosphorus metabolism documented in this encounter Additional Health Concerns Assessment Noted Time PHQ-9 Depression Total Score: 17 025 2:50 PM EST documented as of this encounter Care Teams Online Banking Specialist Relationship Specialty Start Date End Date Name, MD Rock [address] [place] [address] PCP - General Family Medicine 07/04/15 documented as of this encounter
--- OUTSIDE RECORDS SUMMARY | 2025-01-15 07:51 | XMS_ITS | Encounter Summary ---
Author Organization [employer] Address [address] [place] [address] Care Team Providers Care Lye Machine Operator Name Role Phone Name, Rock DE PAZ Primary Care Provider Reason for Visit * Reason Comments Med Refill Encounter Details Date Type Department Care Team ([facility] Contact Info) Description 09/21/2022 Refill [facility] [address] [place] [phone] Name, MD Rock [address] [place] [phone] Insomnia, unspecified type; Pain Social History Tobacco [...] Upcoming Encounters Date Type Department Care Team ([facility] Contact Info) Description 03/13/2025 1:00 PM EST Clinical Support [facility] [address] [place] [phone] Corrie Chen, RN documented as of this encounter Visit Diagnoses Diagnosis Insomnia, unspecified type Pain Generalized pain documented in this encounter Care Teams Lye Machine Operator Relationship Specialty Start Date End Date Name, MD Rock [address] [place] [address] PCP - General Family Medicine 07/04/15 documented as of this encounter
--- OUTSIDE RECORDS SUMMARY | 2025-01-15 07:51 | XMS_ITS | Encounter Summary ---
Author Organization [employer] Address [address] [place] [address] Care Team Providers Care Can Dryer Name Role Phone Name, Rock DE PAZ Primary Care Provider [phone] Reason for Visit * Reason Onset Date Comments Med Refill 10/23/2024 Encounter Details Date Type Department Care Team (Late st Contact Info) Description 10/23/2024 Refill [facility] [address] [place], [place] [phone] Name, MD Rock [address] [place] [address] Insomnia, unspecified type Social History Tobacco Use [...] 03/13/2025 1:00 PM EST Clinical Support [facility] [address] [place] [address] Corrie Chne, SCOUT documented as of this encounter Visit Diagnoses Diagnosis Insomnia, unspecified type documented in this encounter Additional Health Concerns Assessment Noted Time PHQ-9 Depression Total Score: 17 025 2:50 PM EST documented as of this encounter Care Teams Can Dryer Relationship Specialty Start Date End Date Name, MD Rock [address] [place] [address] PCP - General Family Medicine 07/04/15 documented as of this encounter
--- OUTSIDE RECORDS SUMMARY | 2025-01-15 07:51 | XMS_ITS | Encounter Summary ---
Author Organization [employer] Address [address] [place] [address] [place] [address] Care Team Providers Care Cashier Parking Lot Name Role Phone Name, Rock DE PAZ Primary Care Provider [phone] Reason for Visit * Reason Onset Date Comments Med Refill 02/09/2024 Encounter Details Date Type Department Care Team (Late st Contact Info) Description 02/09/2024 Refill [facility] [address] [place], [place] [phone] Name, MD Rock [address] [place] [address] Social History Tobacco Use Types Packs/Day Years [...] Description 03/13/2025 1:00 PM EST Clinical Support [facility] [address] [place] [address] Corrie Chen RN documented as of this encounter Visit Diagnoses Not on filedocumented in this encounter Additional Health Concerns Assessment Noted Time PHQ-9 Depression Total Score: 12 024 2:16 PM EDT documented as of this encounter Care Teams Cashier Parking Lot Relationship Specialty Start Date End Date Name, MD Rock [address] [place] [address] PCP - General Family Medicine 07/04/15 documented as of this encounter
--- OUTSIDE RECORDS SUMMARY | 2025-01-15 07:51 | XMS_ITS | Encounter Summary ---
Author Organization [employer] Address [address] [place] [address] Care Team Providers Care Food Sanitarian Name Role Phone Name, Rock DE PAZ Primary Care Provider [phone] Reason for Visit * Reason Onset Date Comments Med Refill 11/26/2024 Encounter Details Date Type Department Care Team (Late st Contact Info) Description 11/26/2024 Refill [facility] [address] [place], [place] [phone] Name, MD Rock [address] [place] [address] High cholesterol; Statin intolerance Social History Tobacco [...] 1:00 PM EST Clinical Support [facility] [address] [place] [address] Corrie Chen, SCOUT documented as of this encounter Visit Diagnoses Diagnosis High cholesterol Pure hypercholesterolemia Statin intolerance documented in this encounter Additional Health Concerns Assessment Noted Time PHQ-9 Depression Total Score: 17 025 2:50 PM EST documented as of this encounter Care Teams Food Sanitarian Relationship Specialty Start Date End Date Name, MD Rock [address] [place] [address] PCP - General Family Medicine 07/04/15 documented as of this encounter
--- OUTSIDE RECORDS SUMMARY | 2025-01-15 07:51 | XMS_ITS | Clinical Summary ---
Author Organization [employer] Address [address] [place] [address] 7 [place] [address] Care Team Providers Care Instrument Technician Helper Name Role Phone Name, Rock DE PAZ Primary Care Provider [phone] Allergies Active Allergy Reactions Criticality Noted Date [...] OF 225MG. 90 capsule 1 025 Active zolpidem (Ambien) 10 MG tabletIndicati [...] December 15, 2024. 84 tablet 025 2024 venlafaxine XR (Effexor XR) 150 MG 24 [...] Department Care Team Description 01/04/2025 Results Follow-Up [facility] MEDICINE [address] [place] [phone] NameRock MD CBC auto differential, Comprehensive Metabolic Panel, PTH, Intact Without Calcium, Additional followed-up results: 5 2025 2:30 PM EDT Office Visit [address] [address] NameRock MD Hypertension, unspecified type (Primary Dx); Class 1 drug-induced obesity with serious comorbidity and body mass index (BMI) of 30.0 to 30.9 in adult; Primary osteoarthritis of both knees; History of repair of hiatal hernia 2025 Travel 2025 Orders Only [facility] [place] [address] Rock Rodrigues MD 12/29/2024 Refill [facility] [place] [address] Rock Rodrigues MD Insomnia, unspecified type; Chronic pain syndrome; Hypophosphatemia 12/29/2024 Telephone [facility] [place] [address] Rock Rodrigues MD Chart Prep 12/25/2024 Travel 12/18/2024 Refill [facility] [place] [address] Shavon Fletcher MD Insomnia, unspecified type 12/15/2024 Refill [facility] [place] [address] Rock Rodrigues MD Hypophosphatemia 12/12/2024 1:00 PM EDT Clinical Support [facility] [place] [address] Corrie Chen RN Long-term current use of opiate analgesic (Primary Dx) 12/12/2024 Refill [facility] [place] [address] Corrie Chen RN Chronic pain syndrome 12/12/2024 Travel 12/07/2024 Refill [facility] [place] [address] Rock Rodrigues MD Chronic pain syndrome 12/05/2024 2:00 PM EDT Office Visit [facility] [place] [address] Fany Pearson MD Chronic low back pain, unspecified back pain laterality, unspecified whether sciatica present (Primary Dx); Primary osteoarthritis of both knees 12/05/2024 Travel 12/01/2024 11:30 AM EDT Office Visit [facility] [place] [address] Tiffany Fairbanks MD Seborrheic keratosis (Primary Dx); Benign nevus 12/01/2024 Refill [facility] [place] [address] NameRock MD High cholesterol; Statin intolerance 12/01/2024 Travel 11/26/2024 Refill [facility] [address] [place] [address] Rock Rodrigues MD High cholesterol; Statin intolerance 11/24/2024 Travel 11/20/2024 Refill [facility] [address] [place] [address] NameRock MD Insomnia, unspecified type 11/14/2024 Refill [facility] [address] [place] [address] Rock Rodrigues MD Chronic pain syndrome 11/14/2024 Refill [facility] [address] [place] [address] Rock Rodrigues MD Chronic pain syndrome; Insomnia, unspecified type 11/14/2024 Telephone [facility] [address] [place] [address] Rock Rodrigues MD Referral 11/07/2024 Refill [facility] [address] [place] [address] Rock Rodrigues MD Hypophosphatemia 11/07/2024 Telephone [facility] [address] [place] [address] Rock Rodrigues MD Lab Orders 10/23/2024 Refill [facility] [address] [place] [address] Frank Vallejo MD Chronic pain syndrome; Insomnia, unspecified type 10/23/2024 Refill [facility] [address] [place] [address] Rock Rodrigues MD Insomnia, unspecified type from Last 3 Months Immunizations Immunization Administration Dates Next Due INFLUENZA VACCINE QUADRIVALE NT RECOMBINANT PRESERVATIVE FREE RIV4 01/20/2020,02/09/2019 Influenza injectable quadriv alent preservative free 02/15/2023,01/07/2022,02/17/2021,01/15,01/28/2017,01/22/2016 Influenza, IIV3, injectable 01/07/2015,1 ,02/16/2013,01/10,01/24/2009 Influenza, Recombinant, inje ctable, preservative free 02/01/2024 Novel [id number], preservative-free 04/03/2009 Pfizer Covid-19 Vaccine 12+ 03/29/2023 [...] 1:00 PM EST Clinical Support [facility] MEDICINE [address] [place] [address] Corrie Chen, RN Health Maintenance Due Date [...] Hold Lavender - Possible Hematololgy SEE NOTE [facility] Comment:Specimen will be hel d untested for 8 hours. Call Hematologyif testing is desired. 2025 12:3 9 PM EDT 2025 2:09 PM EDT us Rock Name HISTORICAL/NON ORDERABLE LABS Fi nal Result [facility] [address] [place] [phone] * Vitamin D, 25-Hydroxy, Total, Immunoassay (2025 12:39 PM EDT) Vitamin D 25-OH Total 45.0 >30 ng/mL [facility] Comment: Health Based Reference Values*< 20 ng/mL Ysfupybhk40-54 ng/mL Insufficient> 30 ng/mL Sufficient*Elver KRUSE. N [...] ORDERABLES Final Resul t Performing Organization Address City/[facility] Co de Phone Number [facility] [address] [place] [phone] * Vitamin B12/Folate, Serum Panel (2025 12:39 PM EDT) Vitamin B12 439 200 - 900 pg/mL [facility] Comment:NORMAL 200-900 PG/ML INDETERMINATE 160-199 PG/ML DEFICIENT < 160 PG/ML Folate 9.2 > or = 4.0 ng/mL [facility] Comment:Reference Values:> o r = [...] ORDERABLES Final Resul t Performing Organization Address City/[facility] Co de Phone Number [facility] [address] [place], [place] [phone] * (ABNORMAL) CBC auto differential (2025 12:39 PM EDT) White Blood Count 5.6 4.8 - 10.8 X10*3/uL [facility] Red Blood Count 4.43 4.20 - 5.50 X10*6/uL [facility] Hemoglobin 13.7 12.0 - 16.0 g/dl [facility] Hematocrit 40.2 37.0 - 47.0 % [facility] Mean Corpuscular Volume 90.7 80.0 - 98.0 fL [facility] Mean Corpuscular Hemoglobin 30.9 27.0 - 33.0 pg [facility] Mean Corpuscular HGB Conc 34.1 31.0 - 35.0 g/dl [facility] Red Cell Distribution Width 12.2 11.0 - 16.0 % [facility] Platelet Count 270 160 - 400 X10*3/uL [facility] Mean Platelet Volume 12.4(H) 9.4 - 12.3 fL [facility] Neutrophils Percent Auto 48.6 45 - 73 % [facility] Imm Gran Pct Auto 0.4 0.0 - 0.4 % [facility] Lymphocytes Percent Auto 42.6(H) 20 - 40 % [facility] Monocytes Percent Auto 5.9 2 - 11 % [facility] Eosinophils Percent Auto 1.6 0 - 4 % [facility] Basophils Percent Auto 0.9 0 - 2 % [facility] NRBC Pct Auto 0.0 0.0 - 0.2 /100WBC [facility] Neutrophils Absolute Auto 2.8 2.0 - 8.3 x10*3/uL [facility] Imm Gran Abs Auto 0.02 0.00 - 0.03 X10*3/uL [facility] Lymphocytes Absolute Auto 2.4 1.2 - 4.9 X10*3/uL [facility] Monocytes Absolute Auto 0.3 0.1 - 1.2 X10*3/uL [facility] Eosinophils Absolute Auto 0.1 0.0 - 0.4 X10*3/uL [facility] Basophils Absolute Auto 0.1 0.0 - 0.2 X10*3/uL [facility] NRBC Abs Auto 0.000 0.0 - 0.012 X10*3/uL [facility] Blood Venous blood specimen / Unknown 2025 12:39 PM EDT 2025 12:39 PM EDT us Rock Rodrigues MD LAB BLOOD ORDERABLES Final Resul t Performing Organization Address City/[facility] Co de Phone Number [facility] [address] [place] [phone] * (ABNORMAL) Iron And Total Iron Binding Capacity (2025 12:39 PM EDT) Iron 213(H) 30 - 160 mcg/dL [facility] Total Iron Binding Capacity 394 228 - 428 mcg/dL [facility] Percent Iron Saturation 54(H) 15 - 50 % [facility] Unsaturated Iron Binding 181 ug/dL [facility] Blood Venous blood specimen / Unknown 2025 12:39 PM EDT 2025 12:39 PM EDT us Rock Rodrigues MD LAB BLOOD ORDERABLES Final Resul t Performing Organization Address City/[facility]/ZIP Co de Phone Number [facility] [address] [place] [phone] * Hepatitis A Antibody, Total (2025 12:39 PM EDT) Hepatitis A Antibody IgG Nonreactive Nonreactive [facility] Blood Venous blood specimen / Unknown 2025 12:39 PM EDT 2025 12:39 PM EDT Rock Rodrigues MD LAB BLOOD ORDERABLES Final Resul t Performing Organization Address [facility]/ZIP Co de Phone Number [facility] [address] [place] [phone] * Zinc (2025 12:39 PM EDT) Zinc 69 60 - 130 mcg/dL [facility] Comment:This test was develo ped and its analytical performancecharacteristics have been determined by [employer] [place], [place]. It hasnot been cleared or approved by the U.S. Food and DrugAdministration. This assay has been validated pursuantto the CLIA regulations and is used for clinicalpurposes.THIS TEST WAS PERFORMED AT:[employer]/[id number] [place] [address]OCGOOUZCARMELITA WRIGHT MD,PHD Blood Venous blood specimen / Unknown 2025 12:39 PM EDT 2025 12:39 PM EDT Rock Rodrigues MD LAB BLOOD ORDERABLES Final Resul t Performing Organization Address [facility] Co de Phone Number [facility] [address] [place] [phone] * TSH (2025 12:39 PM EDT) Thyroid Stimulating Hormone 1.72 0.32 - 4.0 uIU/mL [facility] Comment:TSH 3rd Generation ( [facility]) 2025 12:3 9 PM EDT 2025 12:39 PM EDT Generic External Data Provider LAB BLOOD ORDERAB LES Final Result Performing Organization Address [facility]/ZIP Co de Phone Number [facility] [address] [place] [address] [phone] * T4, Free (2025 12:39 PM EDT) Pathologist [facility] Free T4 (Free Thyroxine) 1.05 0.71 - 1.85 ng/dL [facility] 2025 12:3 9 PM EDT 2025 12:39 PM EDT Generic External Data Provider LAB BLOOD ORDERAB LES Final Result Performing Organization Address [facility] Co de Phone Number [facility] [address] [place] [phone] * PTH, Intact Without Calcium (2025 12:39 PM EDT) Pathologist [facility] Parathyroid Hormone, Intact 58.8 8.7 - 77.1 pg/mL [facility] Blood Venous blood specimen / Unknown 2025 12:39 PM EDT 2025 12:39 PM EDT Rock Rodrigues MD LAB BLOOD ORDERABLES Final Resul t Performing Organization Address [facility] Co de Phone Number [facility] [address] [place] [phone] * Ferritin (2025 12:39 PM EDT) Pathologist [facility] Ferritin 17 10 - 250 ng/mL [facility] Blood Venous blood specimen / Unknown 2025 12:39 PM EDT 2025 12:39 PM EDT Rock Rodrigues MD LAB BLOOD ORDERABLES Final Resul t Performing Organization Address [facility] de Phone Number [facility] [address] [place] [phone] * Comprehensive Metabolic Panel (2025 12:39 PM EDT) Pathologist [facility] Sodium 142 135 - 145 mmol/L [facility] Potassium 4.9 3.3 - 5.1 mmol/L [facility] Chloride 108 96 - 108 mmol/L [facility] Carbon Dioxide 25 22 - 29 mmol/L [facility] Anion Gap 14 12 - 20 [facility] Urea Nitrogen (BUN) 13 9 - 16 mg/dL [facility] Creatinine, Serum 0.67 0.5 - 1.4 mg/dL [facility] Estimated Glomerular Filt Rate >60 [facility] Comment:Chronic Kidney Disea se: Estimated GFR < 60 mL/min/[id number] Kidney Disease: Estimated GFR < 15 mL/min/1.73m2 Glucose 81 60 - 115 mg/dL [facility] Calcium 9.1 8.4 - 10.2 mg/dL [facility] Bilirubin, Total 0.3 0.0 - 1.0 mg/dL [facility] Aspartate Amino Transferase 24 5 - 31 U/L [facility] Alanine Aminotransferase 23 0 - 31 U/L [facility] Total Protein 7.2 6.5 - 8.0 g/dL [facility] Albumin Level 4.4 3.5 - 5.0 g/dL [facility] Alkaline Phosphatase 51 39 - 117 U/L [facility] Blood Venous blood specimen / Unknown 2025 12:39 PM EDT 2025 12:39 PM EDT us Rock Name LAB BLOOD ORDERABLES Final Resul t [facility] [address] [place] [phone] * Collagen Cross-Linked N-Telopeptide (NTx), U (2025 10:15 AM EDT) N Telopetide (NTx) 10 see note [facility] Comment:Result Units: nM BCE /mM creatPremenopausal Females: 4 - 64 nM BCE/mM creatResults are primarily used for monitoring theresponse to therapy. A value within thepremenopausal range does not rule out osteoporosisnor the need for therapyUnits of Measure: nM BCE/mM creat CREATININE, RANDOM URINE 46 20 - 275 mg/dL [facility] Comment:THIS TEST WAS PERFOR MED AT:[employer]/[facility] [id number] [place] [address]AIRMRJECARMELITA WRIGHT MD,PHD 2025 10:1 5 AM EDT 2025 12:45 PM EDT us Generic External Data Provider LAB URINE ORDERAB LES Final Result [facility] [address] [place] [phone] * (ABNORMAL) POCT PAULETTE-14 Urine Drug Screen (12/12/2024 1:21 PM EDT) THC Positive Negative Cocaine Screen, Urine Negative [...] procedure / Unknown 12/12/2024 1:21 PM EDT Corrie Gomez RN - 12/12/2024 1:21 PM EDT UTOX cup Lot#[id number] Exp. 01/30/26 Internal Pass Control us Rock Rodrigues MD POINT OF CARE TEST ENTER/EDIT OR DERABLES Final Result * Phencyclidine Screen, Urine (12/12/2024 12:00 AM EDT) Phencyclidine Screen Urine Not Detected Not Detect [facility] Comment:Phencyclidine cut-of f is 25 ng/mL.Positive results are unconfirmed and should not be used fornon-medical purposes. Urine 12/12/2024 12/12/2024 Rock Rodrigues MD LAB URINE ORDERABLES Final Resul t Performing Organization Address [facility] de Phone Number [facility] [address] [place] [phone] * Drug Monitoring, Methadone Metabolite, Screen, Urine (12/12/2024 12:00 AM EDT) Methadone Screen, Urine Not Detected Not Detect ng/mL [facility] Comment:Methadone cut-off is 300 ng/mL.Positive results are unconfirmed and should not be used fornon-medical purposes. Urine 12/12/2024 12/12/2024 Rock Rodrigues MD LAB URINE ORDERABLES Final Resul t Performing Organization Address [facility] de Phone Number [facility] [address] [place] [address] [phone] * BI Mammogram Screening Tomosynthesis Bilateral (02/04/2024 1:40 PM EDT) Anatomical Region Laterality Modality Breast Bilateral Mammography 02/04/2024 1:40 PM EDT Narrative 02/17/2024 9:45 PM EDT [facility] [address] [place] [address] Mammography Report Signed Patient: Coleen Tyler MR#: [id number] : 1960 Acct:[id number] Age/Sex: 64 / F ADM Date: 02/04/24 Loc: [place] Attending Dr: Rock Rodrigues MD Ordering Physician: Rock Rodrigues MD Results: 1Negative Date of Service: 02/04/24 Follow Up: 1 Year From Orig inal Mammogram Procedure(s): MM tomosynthesis screening BI Accession Number(s): [id number] cc: Rock Rodrigues MD EXAMINATION: MM SCREENING [...] 02/17/24 2142 DD/ 1340 TD/TT: 02/04/24 1358 Slitter Service And Setter: Procedure Note Donotuseinterpreter, Image - [facility]/17/[facility] [address] [place] [address] Mammography Report Signed Patient: Ne TylernaMR#: [id number] : 1Acct:[id number] Age/Sex: 64 / FADM Date: 02/04/24 Loc: [place] Attending Dr: Rock Rodrigues MD Ordering Physician: Rock Rodrigues MDResults: 1Negative Date of Service: 02/04/24Follow Up: 1 Year From Orig inal Mammogram Procedure(s): MM tomosynthesis screening BI Accession Number(s): [id number] cc: Rock Rodrigues MD EXAMINATION: MM SCREENING [...] signed by Kristal Santos DO in OV> 02/17/242 DD/ 1340 TD/TT: 02/04/24 1358 Slitter Service And Setter: us Rock Name IMYareli BI PROCEDURES Edited Result - Final * (ABNORMAL) Lipid Panel, Standard (12/07/2023 11:55 AM EDT) Triglycerides 236(H) <150 mg/dL [facility] Comment:Desirable Triglyceri de: less than 150 mg/dLBorderline High Triglyceride 150-199 mg/dLHigh Triglyceride: 200-499 mg/dLVery High Triglyceride: greater than or equal to 5OO mg/dL Cholesterol 300(H) <200 mg/dL [facility] Comment:Desirable Cholestero l: less than 200 mg/dLBorderline High Cholesterol: 200-239 mg/dLHigh Cholesterol: greater than 239 mg/dL LDL Cholesterol Calculated 214(H) <100 mg/dL [facility] Comment:Desirable LDL: less than 100 mg/dLNear Optimal/Above Optimal LDL: 110- 129 mg/dLBorderline High LDL: 130-159 mg/dLHigh LDL: 160-189 mg/dLVery High LDL: greater than or equal to 190 mg/dL HDL Cholesterol 39(L) >40 mg/dL [facility] Comment:Desirable HDL: great er than 40 mg/dL Note: This HDL assay may give artificially low results in patients with liver disease. 12/07/2023 11:5 5 AM EDT 12/07/2023 11:55 AM EDT us Generic External Data Provider LAB BLOOD ORDERAB LES Final Result [facility] [address] [place] [phone] * Hm Colonoscopy (11/22/2023) Colonoscopy Normal Normal us Rock Rodrigues MD HEALTH MAINTENANCE Final Result * THINPREP TIS PAP AND HPV mRNA E6/E7 WITH REFLEX TO HPV 16,18/45 (01/07/2022 3:18 PM EDT) Clinical Information: None given [facility] COMMENT SEE COMMENT FOUNDATI ON [...] has been evaluated with computer assisted technology. [facility] Home Care Consultant: SEE COMMENT [facility] Comment: MAAVICTOR MANUEL(ASCP) CT screening location: [place] [address] HPV nRNA E6/E7 Not Detected Not Detected [facility] Comment: Methodology: Acting Instructor-Mediated Amplification This assay detects E6/E7 viral messenger RNA (mRNA) from 14 high-risk HPV types (16,18,31,33,35,39,45,51,52,56,58,59,66,68). Cervical sources are required for HPV testing. If a vaginal source from a patient who has had a total hysterectomy with removal of cervix was submitted, please contact the testing laboratory for alternative testing options. For additional information, please refer to http://education.[employer]/faq/FFH667m3 (This link if provided for information/ educational [...] SYSTEM Statement Of Adequacy: SATISFACTORY FOR EVALUATION [facility] 01/07/2022 3:18 PM EDT Tisha Venegas CN LAB PATHOLOGY ORDERABLES Final Result Performing Organization Address [facility] de Phone Number [facility] [address] * HEPATITIS C AB W/REFL TO HCV RNA, QN, PCR (12/23/2021 2:35 PM EDT) HEPATITIS C ANTIBODY NON-REACT MARK NON-REACT MARK [facility] INDEX 0.12 <1.00 [facility] Comment: HCV antibody was non-reactive. There is no laboratory evidence of HCV infection. In most cases, no further action is required. However, if recent HCV exposure is suspected, a test for HCV RNA (test code 38264) is suggested. For additional information please refer to http://education.[employer]/faq/XWZ55a4 (This link is being provided for informational/ educational purposes only.) 12/23/2021 2:35 PM EDT Rock Rodrigues MD HISTORICAL/NON ORDERABLE LABS Fi nal Result Performing Organization Address [facility] Co de Phone Number [facility] [address] * HIV 1/2 ANTIGEN/ANTIBODY,FOURTH GENERATION W/RFL (02/17/2021 3:50 PM EDT) HIV-1/2 ANTIGEN AND ANTIBODIES, 4TH GENERATION W/ REFLEX NON-REACT MARK NON-REACT MARK [facility] Comment: HIV-1 antigen and HIV-1/HIV-2 [...] purpose. For additional information please refer to http://[employer]/faq/PDM007 (This link is being provided for informational/ educational purposes only.) The performance of this assay has not been clinically validated in patients less than 2 years old. 02/17/2021 3:50 PM EDT us Rock Rodrigues MD LAB BLOOD ORDERABLES Final Resul t [facility] [address] from Last 3 Months or Most Recently Relevant to Health Maintenance Insurance MEDICARE [facility] STANDARD [employer] MEDICARE REPLACEMENT Care Teams Instrument Technician Helper Relationship Specialty Start Date End Date Name, MD Rock [address] [place] [phone] PCP - General Family Medicine 07/04/15
--- OUTSIDE RECORDS SUMMARY | 2025-01-15 07:51 | XMS_ITS | Encounter Summary ---
Author Organization [employer] Address [address] [place] [address] [place] [address] Care Team Providers Care Fender Mechanic Apprentice Name Role Phone Name, Rock DE PAZ Primary Care Provider [phone] Reason for Visit * Reason Comments Med Refill Encounter Details Date Type Department Care Team ([facility] st Contact Info) Description 09/15/2024 Refill [facility] MEDICINE [address] [place], [place] [phone] Name, MD Rock [address] [place] [address] Hypophosphatemia Social History Tobacco Use Types Packs/Day [...] 1:00 PM EST Clinical Support [facility] [address] [place] [address] Corrie Chen, RN documented as of this encounter Visit Diagnoses Diagnosis Hypophosphatemia Disorders of phosphorus metabolism documented in this encounter Additional Health Concerns Assessment Noted Time PHQ-9 Depression Total Score: 17 025 2:50 PM EST documented as of this encounter Care Teams Fender Mechanic Apprentice Relationship Specialty Start Date End Date Name, MD Rock [address] [place] [address] PCP - General Family Medicine 07/04/15 documented as of this encounter
--- OUTSIDE RECORDS SUMMARY | 2025-01-15 07:51 | XMS_ITS | Encounter Summary ---
Author Organization [employer] Address [address] [place] [address] [place] [address] Care Team Providers Care Poultry Farm Laborer Name Role Phone Name, Rock DE PAZ Primary Care Provider [phone] Reason for Visit * Reason Onset Date Comments Med Refill 02/09/2024 Encounter Details Date Type Department Care Team (Late st Contact Info) Description 02/09/2024 Refill [facility] MEDICINE [address] [place], [place] [phone] Name, MD Rock [address] [place] [address] Insomnia, unspecified type Social History Tobacco Use [...] 03/13/2025 1:00 PM EST Clinical Support [facility] MED[facility]INE [address] [place] [address] Corrie Chen, SCOUT documented as of this encounter Visit Diagnoses Diagnosis Insomnia, unspecified type documented in this encounter Additional Health Concerns Assessment Noted Time PHQ-9 Depression Total Score: 12 024 2:16 PM EDT documented as of this encounter Care Teams Poultry Farm Laborer Relationship Specialty Start Date End Date Name, MD Rock [address] [place] [address] PCP - General Family Medicine 07/04/15 documented as of this encounter
--- OUTSIDE RECORDS SUMMARY | 2025-01-15 07:51 | XMS_ITS | Encounter Summary ---
Author Organization [employer] Address [address] [place] [address] [place] [address] Care Team Providers Care Account Group Supervisor Name Role Phone Name, Rock DE PAZ Primary Care Provider [phone] Reason for Visit * Reason Onset Date Comments Med Refill 05/08/2024 Encounter Details Date Type Department Care Team (Late st Contact Info) Description 05/08/[address] [facility] [address] [place], [place] [phone] Name, MD Rock [address] [place] [address] Chronic pain syndrome; Insomnia, unspecified type Social [...] 03/13/2025 1:00 PM EST Clinical [address] [facility] [address] [place] [address] Corrie Chen, RN documented as of this encounter Visit Diagnoses Diagnosis Chronic pain syndrome Insomnia, unspecified type documented in this encounter Additional Health Concerns Assessment Noted Time PHQ-9 Depression Total Score: 12 024 2:16 PM EDT documented as of this encounter Care Teams Account Group Supervisor Relationship Specialty Start Date End Date Name, MD Rock [address] [place] [address] PCP - General Family Medicine 07/04/15 documented as of this encounter
--- OUTSIDE RECORDS SUMMARY | 2025-01-15 07:51 | XMS_ITS | Encounter Summary ---
Author Organization [employer] Address [address] [place] [address] [place] [address] Care Team Providers Care Tactical Response Group Officer Name Role Phone Name, Rock DE PAZ Primary Care Provider Reason for Visit * Reason Onset Date Comments Med Refill 05/08/2024 Encounter Details Date Type Department Care Team (Late st Contact Info) Description 05/08/2024 Refill [facility] [address] [place] [address] Name, MD Rock [address] [place] [address] Rhinorrhea Social History Tobacco Use Types Packs/Day [...] Clinical Support [facility] 230 [place] [address] Corrie Chen, SCOUT documented as of this encounter Visit Diagnoses Diagnosis Rhinorrhea Other diseases of nasal cavity and sinuses documented in this encounter Additional Health Concerns Assessment Noted Time PHQ-9 Depression Total Score: 12 024 2:16 PM EDT documented as of this encounter Care Teams Tactical Response Group Officer Relationship Specialty Start Date End Date Name, MD Rock [address] [place] [address] PCP - General Family Medicine 07/04/15 documented as of this encounter
--- OUTSIDE RECORDS SUMMARY | 2025-01-15 07:51 | XMS_ITS | Encounter Summary ---
Author Organization [employer] Address [address] [place] [address] Care Team Providers Care Process Safety Engineer Name Role Phone Name, Rock DE PAZ Primary Care Provider [phone] Reason for Visit * Reason Onset Date Comments Med Refill 08/01/2024 Encounter Details Date Type Department Care Team (Late st Contact Info) Description 08/01/2024 Refill [facility] [address] [place], [place] [phone] Name, MD Rock [address] [place] [address] Chronic pain syndrome Social History Tobacco Use [...] Description 03/13/2025 1:00 PM EST Clinical Support [facility] [address] [place] [address] Corrie Chen, SCOUT documented as of this encounter Visit Diagnoses Diagnosis Chronic pain syndrome documented in this encounter Additional Health Concerns Assessment Noted Time PHQ-9 Depression Total Score: 17 025 2:50 PM EST documented as of this encounter Care Teams Process Safety Engineer Relationship Specialty Start Date End Date Name, MD Rock [address] [place] [address] PCP - General Family Medicine 07/04/15 documented as of this encounter
--- OUTSIDE RECORDS SUMMARY | 2025-01-15 07:51 | XMS_ITS | Encounter Summary ---
Author Organization [employer] Address [address] [place] [address] [place] [address] Care Team Providers Care Laborer Livestock Name Role Phone Name, Rock DE PAZ Primary Care Provider [phone] Reason for Visit * Reason Onset Date Comments Med Refill 03/02/2024 Encounter Details Date Type Department Care Team (Late st Contact Info) Description 03/02/2024 Refill [facility] 230 [place], [place] [phone] Name, MD Rock [address] [place] [address] Social History Tobacco Use Types Packs/Day Years [...] Description 03/13/2025 1:00 PM EST Clinical Support [facility] [address] [place] [address] Corrie Chen RN documented as of this encounter Visit Diagnoses Not on filedocumented in this encounter Additional Health Concerns Assessment Noted Time PHQ-9 Depression Total Score: 12 024 2:16 PM EDT documented as of this encounter Care Teams Laborer Livestock Relationship Specialty Start Date End Date Name, MD [place] [address] [place] [address] PCP - General Family Medicine 07/04/15 documented as of this encounter
--- OUTSIDE RECORDS SUMMARY | 2025-01-15 07:51 | XMS_ITS | Encounter Summary ---
Author Organization [employer] Address [address] [place] [address] 7 [place] [address] Care Team Providers Care Furniture Delivery Driver Name Role Phone Name, Rock DE PAZ Primary Care Provider [phone] Reason for Visit * Reason Comments Med Refill Encounter Details Date Type Department Care Team (Late st Contact Info) Description 03/04/2023 Refill [facility] 230 [place] [address] Christine Doe FNP Social History Tobacco Use [...] Description 03/13/2025 1:00 PM EST Clinical Support [facility] [address] [place] [address] Corrie Chen RN documented as of this encounter Visit Diagnoses Not on filedocumented in this encounter Additional Health Concerns Assessment Noted Time PHQ-9 Depression Total Score: 21 023 10:14 AM EDT documented as of this encounter Care Teams Furniture Delivery Driver Relationship Specialty Start Date End Date Name, MD [place] [address] [place] [address] PCP - General Family Medicine 07/04/15 documented as of this encounter
--- OUTSIDE RECORDS SUMMARY | 2025-01-15 07:51 | XMS_ITS | Encounter Summary ---
Author Organization [employer] Address [address] [place] [address] [place] [address] Care Team Providers Care Brand Engineer Name Role Phone Name, Rock DE PAZ Primary Care Provider [phone] Reason for Visit * Reason Comments Med Refill Encounter Details Date Type Department Care Team ([facility] st Contact Info) Description 08/22/2024 Refill [facility] [address] [place], [place] [phone] Name, MD [place] [address] [place] [address] Chronic pain syndrome Social History Tobacco Use [...] 03/13/2025 1:00 PM EST Clinical Support [facility] [address] [place] [address] Corrie Chen, SCOUT documented as of this encounter Visit Diagnoses Diagnosis Chronic pain syndrome documented in this encounter Additional Health Concerns Assessment Noted Time PHQ-9 Depression Total Score: 17 025 2:50 PM EST documented as of this encounter Care Teams Brand Engineer Relationship Specialty Start Date End Date Name, MD [place] [address] [place] [address] PCP - General Family Medicine 07/04/15 documented as of this encounter
--- OUTSIDE RECORDS SUMMARY | 2025-01-15 07:51 | XMS_ITS | Encounter Summary ---
Author Organization [employer] Address [address] [place] [address] Care Team Providers Care Film Rental Clerk Name Role Phone Name, Rock DE PAZ Primary Care Provider [phone] Reason for Visit * Reason Onset Date Comments Med Refill 06/03/2024 Encounter Details Date Type Department Care Team (Late st Contact Info) Description 06/03/2024 Refill [facility] 230 [place], [place] [phone] Name, MD [place] [address] [place] [address] Hypophosphatemia Social History Tobacco Use Types Packs/Day [...] 03/13/2025 1:00 PM EST Clinical Support [facility] 230 [place] [address] Corrie Chen, SCOUT documented as of this encounter Visit Diagnoses Diagnosis Hypophosphatemia Disorders of phosphorus metabolism documented in this encounter Additional Health Concerns Assessment Noted Time PHQ-9 Depression Total Score: 17 025 2:50 PM EST documented as of this encounter Care Teams Film Rental Clerk Relationship Specialty Start Date End Date Name, MD Rock [address] [place] [address] PCP - General Family Medicine 07/04/15 documented as of this encounter
--- OUTSIDE RECORDS SUMMARY | 2025-01-15 07:51 | XMS_ITS | Encounter Summary ---
Author Organization [employer] Address [address] [place] [address] [place] [address] Care Team Providers Care Lodging Manager Name Role Phone Name, Rock DE PAZ Primary Care Provider [phone] Reason for Visit * Reason Onset Date Comments Med Refill 02/09/2024 Encounter Details Date Type Department Care Team (Late st Contact Info) Description 02/09/2024 Refill [facility] 230 [place], [place] [phone] Name, MD Rock [address] [place] [address] Chronic pain syndrome Social History Tobacco Use [...] 1:00 PM EST Clinical Support [facility] [address] [place] [address] Corrie Chen, SCOUT documented as of this encounter Visit Diagnoses Diagnosis Chronic pain syndrome documented in this encounter Additional Health Concerns Assessment Noted Time PHQ-9 Depression Total Score: 12 024 2:16 PM EDT documented as of this encounter Care Teams Lodging Manager Relationship Specialty Start Date End Date Name, MD [place] [address] [place] [address] PCP - General Family Medicine 07/04/15 documented as of this encounter
--- OUTSIDE RECORDS SUMMARY | 2025-01-15 07:51 | XMS_ITS | Encounter Summary ---
Author Organization [employer] Address [address] [place] [address] 7 [place] [address] Care Team Providers Care Television Installer Name Role Phone NameRock MD Primary Care Provider [phone] Reason for Visit * Reason Comments Med Refill Encounter Details Date Type Department Care Team ([facility] st Contact Info) Description 11/29/2023 Refill [facility] [address] [place] [address] [phone] Name, MD Rock [address] [place] [phone] Chronic pain syndrome Social History Tobacco Use [...] Support [facility] MEDICINE 230 [place] [address] Corrie Chen RN documented as of this encounter Visit Diagnoses Diagnosis Chronic pain syndrome documented in this encounter Additional Health Concerns Assessment Noted Time PHQ-9 Depression Total Score: 12 024 2:16 PM EDT documented as of this encounter Care Teams Television Installer Relationship Specialty Start Date End Date Name, MD Rock [address] [place] [address] PCP - General Family Medicine 07/04/15 documented as of this encounter
--- OUTSIDE RECORDS SUMMARY | 2025-01-15 07:51 | XMS_ITS | Encounter Summary ---
Author Organization [employer] Address [address] [place] [address] Care Team Providers Care Gas Appliance Servicer Name Role Phone Name, Rock DE PAZ Primary Care Provider [phone] Reason for Visit * Reason Onset Date Comments Med Refill 01/31/2024 Encounter Details Date Type Department Care Team ([facility] st Contact Info) Description 01/31/2024 Refill [facility] [address] [place] [address] Juhi Diaz, STONE PLANER 505 [place] [address] Chronic pain syndrome; Insomnia, unspecified type Social [...] 03/13/2025 1:00 PM EST Clinical Support [facility] 230 [place] [address] Corrie Chen, RN documented as of this encounter Visit Diagnoses Diagnosis Chronic pain syndrome Insomnia, unspecified type documented in this encounter Additional Health Concerns Assessment Noted Time PHQ-9 Depression Total Score: 12 024 2:16 PM EDT documented as of this encounter Care Teams Gas Appliance Servicer Relationship Specialty Start Date End Date Name, MD [place] [address] [place] [address] PCP - General Family Medicine 07/04/15 documented as of this encounter
--- OUTSIDE RECORDS SUMMARY | 2025-01-15 07:51 | XMS_ITS | Encounter Summary ---
Author Organization [employer] Address [address] [place] [address] Care Team Providers Care Machine Stapler Name Role Phone Name, Rock DE PAZ Primary Care Provider [phone] Reason for Visit * Reason Onset Date Comments Med Refill 06/16/2024 Encounter Details Date Type Department Care Team (Late st Contact Info) Description 06/16/2024 Refill [facility] 230 [place], [place] [phone] Name, MD Rock [address] [place] [address] Chronic pain syndrome Social History Tobacco Use [...] Description 03/13/2025 1:00 PM EST Clinical Support [facility] [address] [place] [address] Corrie Chen, SCOUT documented as of this encounter Visit Diagnoses Diagnosis Chronic pain syndrome documented in this encounter Additional Health Concerns Assessment Noted Time PHQ-9 Depression Total Score: 17 025 2:50 PM EST documented as of this encounter Care Teams Machine Stapler Relationship Specialty Start Date End Date Name, MD [place] [address] [place] [address] PCP - General Family Medicine 07/04/15 documented as of this encounter
--- OUTSIDE RECORDS SUMMARY | 2025-01-15 07:51 | XMS_ITS | Encounter Summary ---
Author Organization [employer] Address [address] [place] [address] 7 [place] [address] Care Team Providers Care Biometrics Specialist Name Role Phone Name, Rock DEP [place] Primary Care Provider [phone] Encounter Details Date Type Department Care Team (Latest Contact Info) Description 01/04/2025 Results Follow-Up [facility] [address] [place] [address] [phone] Name, MD Rock [address] [place] [address] CBC auto differential, Comprehensive Metabolic Panel, PTH, [...] [facility] [address] [place] [address] Corrie Chen, SCOUT documented as of this encounter Visit Diagnoses Not on filedocumented in this encounter Additional Health Concerns Assessment Noted Time PHQ-9 Depression Total Score: 17 025 2:50 PM EST documented as of this encounter Care Teams Biometrics Specialist Relationship Specialty Start Date End Date Name, MD [place] [address] [place] [address] PCP - General Family Medicine 07/04/15 documented as of this encounter
--- OUTSIDE RECORDS SUMMARY | 2025-01-15 07:51 | XMS_ITS | Encounter Summary ---
Author Organization [employer] Address [address] [place] [address] Care Team Providers Care Marketing Sales Manager Name Role Phone Name, Rock DE PAZ Primary Care Provider [phone] Reason for Visit * Reason Onset Date Comments Med Refill 06/14/2024 Encounter Details Date Type Department Care Team (Late st Contact Info) Description 06/14/2024 Refill [facility] 230 [place], [place] [phone] Name, MD Rock [address] [place] [address] Chronic pain syndrome Social History Tobacco Use [...] is your housing situation today? I have asrah laly 05/17/[address] you [...] Description 03/13/2025 1:00 PM EST Clinical Support [facility] [address] [place] [address] Corrie Chen, SCOUT documented as of this encounter Visit Diagnoses Diagnosis Chronic pain syndrome documented in this encounter Additional Health Concerns Assessment Noted Time PHQ-9 Depression Total Score: 17 025 2:50 PM EST documented as of this encounter Care Teams Marketing Sales Manager Relationship Specialty Start Date End Date Name, MD Rock [address] [place] [address] PCP - General Family Medicine 07/04/15 documented as of this encounter
--- OUTSIDE RECORDS SUMMARY | 2025-01-15 07:51 | XMS_ITS | Encounter Summary ---
Author Organization [employer] Address [address] [place] [address] [place] [address] Care Team Providers Care Hot Metal Car Operator Name Role Phone Name, Rock DE PAZ Primary Care Provider [phone] Reason for Visit * Reason Comments Med Refill Encounter Details Date Type Department Care Team ([facility] st Contact Info) Description 07/31/2024 Refill [facility] 230 [place], [place] [phone] Name, MD Rock [address] [place] [address] Chronic pain syndrome Social History Tobacco Use [...] 1:00 PM EST Clinical Support [facility] [address] [place] [address] Corrie Chen, SCOUT documented as of this encounter Visit Diagnoses Diagnosis Chronic pain syndrome documented in this encounter Additional Health Concerns Assessment Noted Time PHQ-9 Depression Total Score: 17 025 2:50 PM EST documented as of this encounter Care Teams Hot Metal Car Operator Relationship Specialty Start Date End Date Name, MD [place] [address] [place] [address] PCP - General Family Medicine 07/04/15 documented as of this encounter
--- OUTSIDE RECORDS SUMMARY | 2025-01-15 07:51 | XMS_ITS | Encounter Summary ---
Author Organization [employer] Address [address] [place] [address] 7 [place] [address] Care Team Providers Care Fastener Sewing Machine Operator Name Role Phone Name, Rock DE PAZ Primary Care Provider [phone] Encounter Details Date Type Department Care Team (Late st Contact Info) Description 11/24/2023 Abstract [facility] MEDICINE 230 [place], [place] [phone] Name, MD Rock [address] [place] [address] Social History Tobacco Use Types Packs/Day Years [...] 03/13/2025 1:00 PM EST Clinical Support [facility] MEDICINE 230 [place] [address] Corrie Chen RN documented as of this [...] documented as of this encounter Care Teams Fastener Sewing Machine Operator Relationship Specialty Start Date End Date Name, MD [place] [address] [place] [address] PCP - General Family Medicine 07/04/15 documented as of this encounter
--- OUTSIDE RECORDS SUMMARY | 2025-01-15 07:51 | XMS_ITS | Encounter Summary ---
Author Organization [employer] Address [address] [place] [address] Care Team Providers Care Prototype Special Build Name Role Phone Name, Rock DE PAZ Primary Care Provider Reason for Visit * Reason Onset Date Comments Med Refill 07/09/2024 Encounter Details Date Type Department Care Team (Late st Contact Info) Description 07/09/2024 Refill [facility] [address] [place], [place] [phone] Name, MD Rock [address] [place] [address] Chronic pain syndrome Social History Tobacco Use [...] [facility] [address] [place] [address] Corrie Chen, SCOUT documented as of this encounter Visit Diagnoses Diagnosis Chronic pain syndrome documented in this encounter Additional Health Concerns Assessment Noted Time PHQ-9 Depression Total Score: 17 025 2:50 PM EST documented as of this encounter Care Teams Prototype Special Build Relationship Specialty Start Date End Date Name, MD [place] [address] [place] [address] PCP - General Family Medicine 07/04/15 documented as of this encounter
--- OUTSIDE RECORDS SUMMARY | 2025-01-15 07:51 | XMS_ITS | Encounter Summary ---
Author Organization [employer] Address [address] [place] [address] [place] [address] Care Team Providers Care Press Leader Name Role Phone Name, Rock DE PAZ Primary Care Provider [phone] Reason for Visit * Reason Onset Date Comments Med Refill 03/03/2024 Encounter Details Date Type Department Care Team (Late st Contact Info) Description 03/03/2024 Refill [facility] 230 [place], [place] [phone] Name, MD [place] [address] [place] [address] Chronic pain syndrome Social History Tobacco Use [...] Clinical Support [facility] [address] [place] [address] Corrie Chen, SCOUT documented as of this encounter Visit Diagnoses Diagnosis Chronic pain syndrome documented in this encounter Additional Health Concerns Assessment Noted Time PHQ-9 Depression Total Score: 12 024 2:16 PM EDT documented as of this encounter Care Teams Press Leader Relationship Specialty Start Date End Date Name, MD [place] [address] [place] [address] PCP - General Family Medicine 07/04/15 documented as of this encounter
--- OUTSIDE RECORDS SUMMARY | 2025-01-15 07:51 | XMS_ITS | Encounter Summary ---
Author Organization [employer] Address [address] [place] [address] Care Team Providers Care Body Sander Name Role Phone Name, Rock DE PAZ Primary Care Provider [phone] Reason for Visit * Reason Comments Med Refill Encounter Details Date Type Department Care Team (Late st Contact Info) Description 11/23/2022 Refill [facility] 230 [place], [place] [phone] Fany Pearson MD [address] [place] [address] Chronic pain syndrome; Insomnia, unspecified type Social [...] PM EST Clinical Support [facility]ICINE [address] [place] [address] Corrie Chen, RN documented as of this encounter Visit Diagnoses Diagnosis Chronic pain syndrome Insomnia, unspecified type documented in this encounter Additional Health Concerns Assessment Noted Time PHQ-9 Depression Total Score: 21 023 10:14 AM EDT documented as of this encounter Care Teams Body Sander Relationship Specialty Start Date End Date Name, MD Rock [address] [place] [address] PCP - General Family Medicine 07/04/15 documented as of this encounter
--- OUTSIDE RECORDS SUMMARY | 2025-01-15 07:51 | XMS_ITS | Encounter Summary ---
Author Organization [employer] Address [address] [place] [address] Care Team Providers Care Needle Loom Operator Name Role Phone Name, Rock DE PAZ Primary Care Provider [phone] Reason for Visit * Reason Onset Date Comments Med Refill 05/09/2024 Encounter Details Date Type Department Care Team (Late st Contact Info) Description 05/09/2024 Refill [facility] MED[facility] [address] [place], [place] [phone] Name, MD [place] [address] [place] [address] Rhinorrhea Social History Tobacco Use Types Packs/Day [...] Description 03/13/2025 1:00 PM EST Clinical Support [facility] [address] [place] [address] Corrie Chen, SCOUT documented as of this encounter Visit Diagnoses Diagnosis Rhinorrhea Other diseases of nasal cavity and sinuses documented in this encounter Additional Health Concerns Assessment Noted Time PHQ-9 Depression Total Score: 12 024 2:16 PM EDT documented as of this encounter Care Teams Needle Loom Operator Relationship Specialty Start Date End Date Name, MD [place] [address] [place] [address] PCP - General Family Medicine 07/04/15 documented as of this encounter
--- OUTSIDE RECORDS SUMMARY | 2025-01-15 07:51 | XMS_ITS | Encounter Summary ---
Author Organization [employer] Address [address] [place] [address] Care Team Providers Care Protection Consultant Name Role Phone Name, Rock DE PAZ Primary Care Provider [phone] Reason for Visit * Reason Onset Date Comments Med Refill 12/01/2024 Encounter Details Date Type Department Care Team (Late st Contact Info) Description 12/01/2024 Refill [facility] MED[facility]INE 230 [place], [place] [phone] Name, MD [place] [address] [place] [address] High cholesterol; Statin intolerance Social History Tobacco [...] Clinical Support [facility] MED[facility] [address] [place] [address] Corrie Chen, SCOUT documented as of this encounter Visit Diagnoses Diagnosis High cholesterol Pure hypercholesterolemia Statin intolerance documented in this encounter Additional Health Concerns Assessment Noted Time PHQ-9 Depression Total Score: 17 025 2:50 PM EST documented as of this encounter Care Teams Protection Consultant Relationship Specialty Start Date End Date Name, MD [place] [address] [place] [address] PCP - General Family Medicine 07/04/15 documented as of this encounter
--- OUTSIDE RECORDS SUMMARY | 2025-01-15 07:51 | XMS_ITS | Encounter Summary ---
Author Organization [employer] Address [address] [place] [address] 7 [place] [address] Care Team Providers Care Surveying Crew Rodman Name Role Phone Name, Rock DE PAZ Primary Care Provider [phone] Reason for Visit * Reason Comments Med Refill Encounter Details Date Type Department Care Team (Late st Contact Info) Description 11/20/2022 Refill [facility] [address] [place], [place] [phone] Fany Pearson MD 230 [place] [address] Chronic pain syndrome; Insomnia, unspecified type Social [...] Clinical Support [facility] [address] [place] [address] Corrie Chen, RN documented as of this encounter Visit Diagnoses Diagnosis Chronic pain syndrome Insomnia, unspecified type documented in this encounter Additional Health Concerns Assessment Noted Time PHQ-9 Depression Total Score: 21 11/20/ 023 10:14 AM EDT documented as of this encounter Care Teams Surveying Crew Rodman Relationship Specialty Start Date End Date Name, MD Rock [address] [facility] [place] [address] PCP - General Family Medicine 07/04/15 documented as of this encounter
--- OUTSIDE RECORDS SUMMARY | 2025-01-15 07:51 | XMS_ITS | Encounter Summary ---
Author Organization [employer] Address [address] [place] [address] Care Team Providers Care Cabin Furnishings Installer Name Role Phone Name, Rock DE PAZ Primary Care Provider [phone] Reason for Visit * Reason Onset Date Comments Med Refill 06/14/2024 Encounter Details Date Type Department Care Team (Late st Contact Info) Description 06/14/2024 Refill [facility] [address] [place], [place] [phone] Name, MD Rock [address] [place] [address] Chronic pain syndrome Social History Tobacco Use [...] 1:00 PM EST Clinical Support [facility] [address] [place] [address] Corrie Chen, SCOUT documented as of this encounter Visit Diagnoses Diagnosis Chronic pain syndrome documented in this encounter Additional Health Concerns Assessment Noted Time PHQ-9 Depression Total Score: 17 025 2:50 PM EST documented as of this encounter Care Teams Cabin Furnishings Installer Relationship Specialty Start Date End Date Name, MD Rock 230 [place] [address] PCP - General Family Medicine 07/04/15 documented as of this encounter
--- OUTSIDE RECORDS SUMMARY | 2025-01-15 07:51 | XMS_ITS | Encounter Summary ---
Author Organization [employer] Address [address] [place] [address] [place] [address] Care Team Providers Care Portrait Studio Photographer Name Role Phone Name, Rock DE PAZ Primary Care Provider [phone] Reason for Visit * Reason Comments Med Refill Encounter Details Date Type Department Care Team ([facility] st Contact Info) Description 09/11/2024 Refill [facility] [address] [place], [place] [phone] Name, MD Rock 230 [place] [address] Hypophosphatemia Social History Tobacco Use Types Packs/Day [...] 1:00 PM EST Clinical Support [facility] [address] [place] [address] Corrie Chen, RN documented as of this encounter Visit Diagnoses Diagnosis Hypophosphatemia Disorders of phosphorus metabolism documented in this encounter Additional Health Concerns Assessment Noted Time PHQ-9 Depression Total Score: 17 025 2:50 PM EST documented as of this encounter Care Teams Portrait Studio Photographer Relationship Specialty Start Date End Date Name, MD Rock 230 [place] [address] PCP - General Family Medicine 07/04/15 documented as of this encounter
--- OUTSIDE RECORDS SUMMARY | 2025-01-15 07:51 | XMS_ITS | Encounter Summary ---
Author Organization [employer] Address [address] [place] [address] [place] [address] Care Team Providers Care Housing Inspector Name Role Phone Name, Rock DE PAZ Primary Care Provider [phone] Reason for Visit * Reason Onset Date Comments Med Refill 03/02/2024 Encounter Details Date Type Department Care Team (Late st Contact Info) Description 03/02/2024 Refill [facility] 230 [place], [place] [phone] Name, MD Rock 230 [place] [address] Chronic pain syndrome Social History Tobacco Use [...] Clinical Support [facility] [address] [place] [address] Corrie Chen, SCOUT documented as of this encounter Visit Diagnoses Diagnosis Chronic pain syndrome documented in this encounter Additional Health Concerns Assessment Noted Time PHQ-9 Depression Total Score: 12 024 2:16 PM EDT documented as of this encounter Care Teams Housing Inspector Relationship Specialty Start Date End Date Name, MD Rock 230 [place] [address] PCP - General Family Medicine 07/04/15 documented as of this encounter
--- OUTSIDE RECORDS SUMMARY | 2025-01-15 07:51 | XMS_ITS | Encounter Summary ---
Author Organization [employer] Address [address] [place] [address] [place] [address] Care Team Providers Care Construction Equipment Overhauler Name Role Phone Name, Rock DE PAZ Primary Care Provider [phone] Reason for Visit * Reason Onset Date Comments Med Refill 02/09/2024 Encounter Details Date Type Department Care Team (Late st Contact Info) Description 02/09/2024 Refill [facility] [address] [place], [place] [phone] Name, MD Rock [address] [place] [address] Chronic pain syndrome; Insomnia, unspecified type Social [...] 1:00 PM EST Clinical Support [facility] [address] [place] [address] Corrie Chen, RN documented as of this encounter Visit Diagnoses Diagnosis Chronic pain syndrome Insomnia, unspecified type documented in this encounter Additional Health Concerns Assessment Noted Time PHQ-9 Depression Total Score: 12 024 2:16 PM EDT documented as of this encounter Care Teams Construction Equipment Overhauler Relationship Specialty Start Date End Date Name, MD Rock 230 [place] [address] PCP - General Family Medicine 07/04/15 documented as of this encounter
--- OUTSIDE RECORDS SUMMARY | 2025-01-15 07:51 | XMS_ITS | Encounter Summary ---
Author Organization [employer] Address [address] [place] [address] Care Team Providers Care Job Lithographer Name Role Phone Name, Rock DE PAZ Primary Care Provider [phone] Encounter Details Date Type Department Care Team ([facility] Contact Info) Description 09/14/2022 Abstract [facility] [address] [place] [phone] Name, MD Rock [address] [place] [phone] Social History Tobacco Use Types Packs/Day Years [...] Description 03/13/2025 1:00 PM EST Clinical Support [address] [address] April, Corrie, RN documented as of this [...] on filedocumented in this encounter Care Teams Job Lithographer Relationship Specialty Start Date End Date Name, MD Rock 230 [place] [address] PCP - General Family Medicine 07/04/15 documented as of this encounter
--- OUTSIDE RECORDS SUMMARY | 2025-01-15 07:51 | XMS_ITS | Encounter Summary ---
Author Organization [employer] Address [address] [place] [address], [place] [address] Care Team Providers Care Principal Java Software Engineer Name Role Phone Name, Rock DE PAZ Primary Care Provider [phone] Reason for Visit * Reason Comments Med Refill Encounter Details Date Type Department Care Team (Late st Contact Info) Description 11/26/2022 Refill [facility] [address] [place] [phone] Name, MD Rock 230 [place] [address] Chronic pain syndrome Social History Tobacco Use [...] 1:00 PM EST Clinical Support [facility] [address] [place] [address] Corrie Chen, SCOUT documented as of this encounter Visit Diagnoses Diagnosis Chronic pain syndrome documented in this encounter Additional Health Concerns Assessment Noted Time PHQ-9 Depression Total Score: 21 11/20/ 023 10:14 AM EDT documented as of this encounter Care Teams Principal Java Software Engineer Relationship Specialty Start Date End Date Name, MD Rock 230 [place] [address] PCP - General Family Medicine 07/04/15 documented as of this encounter
--- OUTSIDE RECORDS SUMMARY | 2025-01-15 07:51 | XMS_ITS | Encounter Summary ---
Author Organization [employer] Address [address] [place] [address] Care Team Providers Care Senior Clinical Data Manager Name Role Phone Name, Rock DE PAZ Primary Care Provider Reason for Visit * Reason Onset Date Comments Med Refill 09/10/2024 Encounter Details Date Type Department Care Team (Late st Contact Info) Description 09/10/2024 Refill [facility] 230 [place], [place] [phone] Name, MD Rock [address] [place] [address] Chronic pain syndrome Social History Tobacco Use [...] [facility] [address] [place] [address] Corrie Chen, SCOUT documented as of this encounter Visit Diagnoses Diagnosis Chronic pain syndrome documented in this encounter Additional Health Concerns Assessment Noted Time PHQ-9 Depression Total Score: 17 025 2:50 PM EST documented as of this encounter Care Teams Senior Clinical Data Manager Relationship Specialty Start Date End Date Name, MD Rock 230 [place] [address] PCP - General Family Medicine 07/04/15 documented as of this encounter
--- OUTSIDE RECORDS SUMMARY | 2025-01-15 07:51 | XMS_ITS | Encounter Summary ---
Author Organization [employer] Address [address] [place] [address] Care Team Providers Care Assistant Corporation Counsel Name Role Phone Name, Rock DE PAZ Primary Care Provider [phone] Reason for Visit * Reason Comments Med Refill Encounter Details Date Type Department Care Team ([facility] Contact Info) Description 09/16/2022 Refill [facility] [address] [place] [phone] Name, MD Rock [address] [place] [phone] Chronic pain syndrome Social History Tobacco Use [...] Encounters Date Type Department Care Team ([facility] Contact Info) Description 03/13/2025 1:00 PM EST Clinical Support [facility] [address] [place] [phone] Corrie Chen, SCOUT documented as of this encounter Visit Diagnoses Diagnosis Chronic pain syndrome documented in this encounter Care Teams Assistant Corporation Counsel Relationship Specialty Start Date End Date Name, MD Rock 230 [place] [address] PCP - General Family Medicine 07/04/15 documented as of this encounter
--- OUTSIDE RECORDS SUMMARY | 2025-01-15 07:51 | XMS_ITS | Encounter Summary ---
Author Organization [employer] Address [address] [place] [address] Care Team Providers Care Spline Rolling Machine Job Setter Name Role Phone Name, Rock DE PAZ Primary Care Provider [phone] Reason for Visit * Reason Onset Date Comments Med Refill 03/10/2024 Encounter Details Date Type Department Care Team (Late st Contact Info) Description 03/10/2024 Refill [facility] 230 [place], [place] [phone] Name, MD Rock 230 [place] [address] Hypophosphatemia Social History Tobacco Use Types Packs/Day [...] [facility] [address] [place] [address] Corrie Chen, SCOUT documented as of this encounter Visit Diagnoses Diagnosis Hypophosphatemia Disorders of phosphorus metabolism documented in this encounter Additional Health Concerns Assessment Noted Time PHQ-9 Depression Total Score: 12 024 2:16 PM EDT documented as of this encounter Care Teams Spline Rolling Machine Job Setter Relationship Specialty Start Date End Date Name, MD Rock 230 [place] [address] PCP - General Family Medicine 07/04/15 documented as of this encounter
== END 2025-01-15 07:49 | disposition home or self-care (01) ==
LOC: HO.XRAY 07:48
PROVIDERS: PCP Internal Medicine Geriatric Medicine; Visit Provider Nurse Practitioner Family
DX: K21.9 Gastro-esophageal reflux disease without esophagitis (principal)
CPT/HCPCS: 74246

== ENCOUNTER → 2025-01-15 07:49 | Outpatient (BNV) | payer MEDICARE, MEDICAID, SELFPAY | PROVIDERS: PCP Internal Medicine Geriatric Medicine; Visit Provider Radiology Diagnostic Radiology | DX: K21.9 Gastro-esophageal reflux disease without esophagitis (principal) | CPT/HCPCS: 74246 ==

== ENCOUNTER 2025-02-07 13:54 | Outpatient (REF) | payer MEDICARE, MEDICAID, SELFPAY ==
--- OUTSIDE RECORDS SUMMARY | 2025-02-07 17:41 | XMS_ITS | Encounter Summary ---
Author Organization [employer] Address [address] [place] [address] Care Team Providers Care Campaign Marketing Manager Name Role Phone Name, Rock DE PAZ Primary Care Provider [phone] Encounter Details Date Type Department Care Team (Late st Contact Info) Description 04/30/2022 Orders Only [facility] [address] [place] [address] Cheyenne Sánchez LPN Social History Tobacco Use [...] 1:00 PM EST Clinical Support [facility] [address] [place] [address] Corrie Chen RN documented as of this [...] N Telopetide (NTx) 50 see note [facility] Comment:Result Units: nM BCE /mM creatPremenopausal Females: 4 - 64 nM BCE/mM creatResults are primarily used for monitoring theresponse to therapy. A value within thepremenopausal range does not rule out osteoporosisnor the need for therapyUnits of Measure: nM BCE/mM creat CREATININE, RANDOM URINE 114 20 - 275 mg/dL [facility] Comment:THIS TEST WAS PERFOR MED AT:[facility]/[id number] [place] [address]EZMBMLXCARMELITA WRIGHT MD,PHD 05/04/2022 3:06 PM EST 05/04/2022 3:22 PM EST us [facility] External Provider LAB URI NE ORDERABLES Final Result [facility] [address] [place] [phone] * Protein Electrophoresis and Nikep/Lambda Light Chains (05/04/2022 2:30 PM EST) Prot Elec - Total Protein 7.0 6.1 - 8.1 g/dL [facility] Prot Elec - Albumin 4.2 3.8 - 4.8 g/dL [facility] Prot Elec - Alpha1 0.3 0.2 - 0.3 g/dL [facility] Prot Elec - Alpha2 0.8 0.5 - 0.9 g/dL [facility] Prot Elec - Beta 1 0.6 0.4 - 0.6 g/dL [facility] Prot Elec - Beta 2 0.3 0.2 - 0.5 g/dL [facility] Prot Elec - Gamma 0.8 0.8 - 1.7 g/dL [facility] PES - Abn Protein Band 1 TNP [facility] PES-Abn Protein Band 2 TNP [facility] PES-Abn Protein Band 3 [facility] Prot Elec - Interpretation SEE NOTE [facility] Comment:Normal Electrophoret ic PatternTHIS TEST WAS PERFORMED AT:[facility] [address] ([address] [address]EHBTDNANCY ADKINS MD 05/04/2022 2:30 PM EST 05/04/2022 2:33 PM EST us [facility] External Provider LAB BLO OD ORDERABLES Final Result Performing Organization Address City/[facility]/ZIP Co de Phone Number [facility] [address] [place] [phone] * Alkaline Phosphatase, Bone Specific (05/04/2022 2:30 PM EST) Alkaline Phosphatase, Bone Specific 11.6 5.6 - 29.0 mcg/L [facility] Comment:Reference Range, Pre menopausal (mcg/L) 35-45 years 5.0-18.2THIS TEST WAS PERFORMED AT:[facility] [place] [address]KUGMDJZCARMELITA WRIGHT MD,PHD 05/04/2022 2:30 PM EST 05/04/2022 2:33 PM EST [facility] External Provider LAB BLO OD ORDERABLES Final Result Performing Organization Address [facility] Co de Phone Number [facility] [address] [place] [phone] * Thyroid Peroxidase And Thyroglobulin Antibodies (05/04/2022 2:30 PM EST) Thyroglobulin Antibodies <1 < or = 1 IU/mL [facility] Comment:THIS TEST WAS PERFOR MED AT:[facility] [address] ([address] [address]ERBSKNANCY ADKINS MD 05/04/2022 2:30 PM EST 05/04/2022 2:33 PM EST [facility] External Provider LAB BLO OD ORDERABLES Final Result Performing Organization Address [facility] Number [facility] [address] [place] [phone] * (ABNORMAL) Thyroglobulin, LC/MS/MS (05/04/2022 2:30 PM EST) Thyroglobulin, LC/MS/MS <0.1(A) ng/mL [facility] Comment:Reference Range: Int act Thyroid 2.8-40.9 Athyrotic <0.1 Note: Abnormal flagging is based on the reference interval for patients with intact thyroid.This test was performed using the Kristen Coulterchemiluminescent method. Values obtained fromdifferent assay methods cannot be usedinterchangeably. Thyroglobulin levels, regardlessof value, should not be interpreted as absoluteevidence of the presence or absence of disease. Thyroglobulin Comment See Below [facility] Comment:Thyroglobulin antibo dies (TGAB) interfere withthyroglobulin (TG) assays; therefore, TGAB assayshould always be performed in conjunction with aTG assay.For additional information, please refer tohttp://education.[employer]First Messaging/faq/VOO715(This link is being provided for informational/educational purposes only.)THIS TEST WAS PERFORMED AT:[facility] [place] [address] (1)[place] [address]IVKSTNANCY ADKINS MD 05/04/2022 2:30 PM EST 05/04/2022 2:33 PM EST [facility] External Provider LAB BLO OD ORDERABLES Final Result Performing Organization Address [facility] Co de Phone Number [facility] [address] [place] [phone] * PTH, Intact Without Calcium (05/04/2022 2:30 PM EST) PTHI 73 16 - 77 pg/mL [facility] Comment:Interpretive Guide I ntact PTH Calcium -------Normal Parathyroid Normal NormalHypoparathyroidism Low or Low Normal LowHyperparathyroidism Primary Normal or High High Secondary High Normal or Low Tertiary High HighNon-Parathyroid Hypercalcemia Low or Low Normal High Calcium (PTHI) 8.9 8.6 - 10.4 mg/dL [facility] Comment:THIS TEST WAS PERFOR MED AT:[facility] [place] [address] (1)[place] [address]UYGVSNANCY ADKINS MD 05/04/2022 2:30 PM EST 05/04/2022 2:33 PM EST [facility] External Provider LAB BLO OD ORDERABLES Final Result Performing Organization Address [facility] Co de Phone Number [facility] [address] [place] [phone] * TSH (05/04/2022 2:30 PM EST) Thyroid Stimulating Hormone 3.46 0.32 - 4.0 uIU/mL [facility] Comment:Note: A sustained TS H level above 2.5 uIU/mL may warrant further investigation. TSH 3rd Generation ([facility]) 05/04/2022 2:30 PM EST 05/04/2022 2:33 PM EST [facility] External Provider LAB BLO OD ORDERABLES Final Result [facility] [address] [place] [phone] * T4, Free (05/04/2022 2:30 PM EST) Free T4 (Free Thyroxine) 1.14 0.71 - 1.85 ng/dL [facility] 05/04/2022 2:30 PM EST 05/04/2022 2:33 PM EST [facility] External Provider LAB BLO OD ORDERABLES Final Result [facility] [address] [place] [phone] * Vitamin D, 25-Hydroxy, Total, Immunoassay (05/04/2022 2:30 PM EST) Vitamin D 25-OH Total 25.8 >30 ng/mL [facility] Comment:Health Based Referen ce Values*< 20 ng/mL [id number] ng/mL Insufficient> 30 ng/mL Sufficient*Elver KRUSE. N [...] 2:30 PM EST 05/04/2022 2:33 PM EST [facility] External Provider LAB BLO OD ORDERABLES Final Result Performing Organization Address City/[facility]/ZIP Co de Phone Number [facility] [address] [place] [phone] [phone] * Phosphate (As Phosphorus) (05/04/2022 2:30 PM EST) Phosphorus 3.0 2.7 - 4.5 mg/dL [facility] 05/04/2022 2:30 PM EST 05/04/2022 2:33 PM EST [facility] External Provider LAB BLO OD ORDERABLES Final Result Performing Organization Address [facility]/ZIP Co de Phone Number [facility] [address] [place] [phone] * Comprehensive Metabolic Panel (05/04/2022 2:30 PM EST) Sodium 138 135 - 145 mmol/L [facility] Potassium 4.8 3.3 - 5.1 mmol/L [facility] Chloride 106 96 - 108 mmol/L [facility] Carbon Dioxide 24 22 - 29 mmol/L [facility] Anion Gap 13 12 - 20 [facility] Urea Nitrogen (BUN) 15 9 - 16 mg/dL [facility] Creatinine, Serum 0.85 0.5 - 1.4 mg/dL [facility] Estimated Glomerular Filt Rate >60 [facility] Comment:NOTE: For -Am erican individuals, multiply the result by 1.210.Chronic Kidney Disease: Estimated GFR < 60 mL/min/1.02l6Hfkmkv Kidney Disease: Estimated GFR < 15 mL/min/1.73m2 Glucose 90 60 - 115 mg/dL [facility] Calcium 9.0 8.4 - 10.2 mg/dL [facility] Bilirubin, Total 0.3 0.0 - 1.0 mg/dL [facility] Aspartate Amino Transferase 26 5 - 31 U/L [facility] Alanine Aminotransferase 28 0 - 31 U/L [facility] Total Protein 6.8 6.5 - 8.0 g/dL [facility] Albumin Level 4.2 3.5 - 5.0 g/dL [facility] Alkaline Phosphatase 61 39 - 117 U/L [facility] 05/04/2022 2:30 PM EST 05/04/2022 2:33 PM EST us [facility] External Provider LAB BLO OD ORDERABLES Final Result Performing Organization Address City/State/[facility] Co de Phone Number [facility] [address] [place] [phone] documented in this encounter Visit Diagnoses Not on filedocumented in this encounter Care Teams Campaign Marketing Manager Relationship Specialty Start Date End Date Name, MD Rock [address] [place] [address] PCP - General Family Medicine 07/04/15 documented as of this encounter
--- OUTSIDE RECORDS SUMMARY | 2025-02-07 17:41 | XMS_ITS | Encounter Summary ---
Author Organization [employer] Address [address] [place] [address] Care Team Providers Care Butcher'S Assistant Name Role Phone Name, Rock DE PAZ Primary Care Provider [phone] Reason for Visit * Reason Comments Med Refill Encounter Details Date Type Department Care Team ([facility] Contact Info) Description 09/16/2022 Refill [facility] MEDICINE [address] [place] [phone] Name, MD Rock [address] [place] [address] Chronic pain syndrome Social History Tobacco Use [...] Encounters Date Type Department Care Team ([facility] Contact Info) Description 03/13/2025 1:00 PM EST Clinical Support [facility] MEDICINE [address] [place] [address] Corrie Chen, SCOUT documented as of this encounter Visit Diagnoses Diagnosis Chronic pain syndrome documented in this encounter Care Teams Butcher'S Assistant Relationship Specialty Start Date End Date Name, MD Rock [address] [place] [address] PCP - General Family Medicine 07/04/15 documented as of this encounter
--- OUTSIDE RECORDS SUMMARY | 2025-02-07 17:41 | XMS_ITS | Encounter Summary ---
Author Organization [employer] Address [address] [place] [address] Care Team Providers Care Coat Presser Name Role Phone Name, Rock DE PAZ Primary Care Provider [phone] Reason for Visit * Reason Onset Date Comments Med Refill 09/15/2024 Encounter Details Date Type Department Care Team (Late st Contact Info) Description 09/15/2024 Refill [facility] MEDICINE 230 [place], [place] [phone] Name, MD Rock [address] [place] [address] Hypophosphatemia Social History Tobacco Use Types Packs/Day [...] Description 03/13/2025 1:00 PM EST Clinical Support [facility]INE [address] [place] [address] Corrie Chen, SCOUT documented as of this encounter Visit Diagnoses Diagnosis Hypophosphatemia Disorders of phosphorus metabolism documented in this encounter Additional Health Concerns Assessment Noted Time PHQ-9 Depression Total Score: 17 025 2:50 PM EST documented as of this encounter Care Teams Coat Presser Relationship Specialty Start Date End Date Name, MD Rock [address] [place] [address] PCP - General Family Medicine 07/04/15 documented as of this encounter
--- OUTSIDE RECORDS SUMMARY | 2025-02-07 17:41 | XMS_ITS | Encounter Summary ---
Author Organization [employer] Address [address] [place] [address] Care Team Providers Care Head Of Talent Management Name Role Phone Name, Rock DE PAZ Primary Care Provider [phone] Reason for Visit * Reason Onset Date Comments Med Refill 07/09/2024 Encounter Details Date Type Department Care Team (Late st Contact Info) Description 07/09/2024 Refill [facility] MEDICINE 230 [place], [place] [phone] Name, MD Rock [address] [place] [address] Chronic pain syndrome Social History Tobacco Use [...] 1:00 PM EST Clinical Support [facility] MEDICINE [address] [place] [address] Corrie Chen, SCOUT documented as of this encounter Visit Diagnoses Diagnosis Chronic pain syndrome documented in this encounter Additional Health Concerns Assessment Noted Time PHQ-9 Depression Total Score: 17 025 2:50 PM EST documented as of this encounter Care Teams Head Of Talent Management Relationship Specialty Start Date End Date Name, MD Rock [address] [place] [address] PCP - General Family Medicine 07/04/15 documented as of this encounter
--- OUTSIDE RECORDS SUMMARY | 2025-02-07 17:41 | XMS_ITS | Encounter Summary ---
Author Organization [employer] Address [address] [place] [address] [place] [address] Care Team Providers Care Bank Teller Name Role Phone Name, Rock DE PAZ Primary Care Provider [phone] Reason for Visit * Reason Onset Date Comments Med Refill 12/01/2024 Encounter Details Date Type Department Care Team (Late st Contact Info) Description 12/01/2024 Refill [facility] MEDICINE 230 [place], [place] [phone] Name, MD Rock 230 [place] [address] High cholesterol; Statin intolerance Social History Tobacco [...] Description 03/13/2025 1:00 PM EST Clinical Support [facility] MEDICINE [address] [place] [address] Corrie Chen, SCOUT documented as of this encounter Visit Diagnoses Diagnosis High cholesterol Pure hypercholesterolemia Statin intolerance documented in this encounter Additional Health Concerns Assessment Noted Time PHQ-9 Depression Total Score: 17 025 2:50 PM EST documented as of this encounter Care Teams Bank Teller Relationship Specialty Start Date End Date Name, MD Rock [address] [place] [address] PCP - General Family Medicine 07/04/15 documented as of this encounter
--- OUTSIDE RECORDS SUMMARY | 2025-02-07 17:41 | XMS_ITS | Encounter Summary ---
Author Organization [employer] Address [address] [place] [address] [place] [address] Care Team Providers Care Pitch Flaker Name Role Phone Name, Rock DE PAZ Primary Care Provider Reason for Visit * Reason Comments Med Refill Encounter Details Date Type Department Care Team ([facility] st Contact Info) Description 07/31/[address] [facility] MEDICINE [address] [place], [place] [phone] Name, MD Rock 230 [place] [address] Chronic pain syndrome Social History Tobacco Use [...] 1:00 PM EST Clinical Support [facility] MEDICINE [address] [place] [address] Corrie Chen, SCOUT documented as of this encounter Visit Diagnoses Diagnosis Chronic pain syndrome documented in this encounter Additional Health Concerns Assessment Noted Time PHQ-9 Depression Total Score: 17 025 2:50 PM EST documented as of this encounter Care Teams Pitch Flaker Relationship Specialty Start Date End Date Name, MD Rock [address] [place] [address] PCP - General Family Medicine 07/04/15 documented as of this encounter
--- OUTSIDE RECORDS SUMMARY | 2025-02-07 17:41 | XMS_ITS | Encounter Summary ---
Author Organization [employer] Address [address] [place] [address] 7 [place] [address] Care Team Providers Care Electrical Systems Drafter Name Role Phone Name, Rock DE PAZ Primary Care Provider [phone] Encounter Details Date Type Department Care Team (Late st Contact Info) Description 11/24/2023 Abstract [facility] MEDICINE 230 [place], [place] [phone] Name, MD Rock 230 [place] [address] Social History Tobacco Use Types Packs/Day Years [...] EST Clinical Support [facility] MEDICINE 230 [place] [address] Corrie Chen RN documented as of this [...] as of this encounter Care Teams Electrical Systems Drafter Relationship Specialty Start Date End Date Name, MD Rock 230 [place] [address] PCP - General Family Medicine 07/04/15 documented as of this encounter
--- OUTSIDE RECORDS SUMMARY | 2025-02-07 17:41 | XMS_ITS | Encounter Summary ---
Author Organization [employer] Address [address] [place] [address] Care Team Providers Care Art History Professor Name Role Phone Name, Rock DE PAZ Primary Care Provider [phone] Encounter Details Date Type Department Care Team ([facility] Contact Info) Description 09/14/2022 Abstract [facility] MEDICINE [address] [place] [phone] Name, MD Rock [address] [place] [address] Social History Tobacco Use Types Packs/Day Years [...] Description 03/13/2025 1:00 PM EST Clinical Support [address] [address] April, Corrie, RN documented as of this [...] on filedocumented in this encounter Care Teams Art History Professor Relationship Specialty Start Date End Date Name, MD Rock [address] [place] [address] PCP - General Family Medicine 07/04/15 documented as of this encounter
--- OUTSIDE RECORDS SUMMARY | 2025-02-07 17:41 | XMS_ITS | Encounter Summary ---
Author Organization [employer] Address [address] [place] [address] [place] [address] Care Team Providers Care Vocational Horticulture Instructor Name Role Phone Name, Rock DE PAZ Primary Care Provider [phone] Reason for Visit * Reason Onset Date Comments Med Refill 05/08/2024 Encounter Details Date Type Department Care Team (Late st Contact Info) Description 05/08/2024 Refill [facility] [address] [place] [address] Name, MD Rock [address] [place] [address] Rhinorrhea Social History Tobacco Use Types Packs/Day [...] 03/13/2025 1:00 PM EST Clinical Support [facility] MEDICINE 230 [place] [address] Corrie Chen, SCOUT documented as of this encounter Visit Diagnoses Diagnosis Rhinorrhea Other diseases of nasal cavity and sinuses documented in this encounter Additional Health Concerns Assessment Noted Time PHQ-9 Depression Total Score: 12 024 2:16 PM EDT documented as of this encounter Care Teams Vocational Horticulture Instructor Relationship Specialty Start Date End Date Name, MD Rock [address] [place] [address] PCP - General Family Medicine 07/04/15 documented as of this encounter
--- OUTSIDE RECORDS SUMMARY | 2025-02-07 17:41 | XMS_ITS | Encounter Summary ---
Author Organization [employer] Address [address] [place] [address] Care Team Providers Care Systems Design Engineer Name Role Phone Name, Rock DE PAZ Primary Care Provider [phone] Reason for Visit * Reason Comments Med Refill Encounter Details Date Type Department Care Team (Late st Contact Info) Description 04/08/2022 Refill [facility] MED & PEDS [address] [place] [address] Yoni Mccormick MD [address] [place] [address] Social History Tobacco Use Types Packs/Day Years [...] 03/13/2025 1:00 PM EST Clinical Support [facility] MEDICINE [address] [place] [address] Corrie Chen RN documented as of this encounter Visit Diagnoses Not on filedocumented in this encounter Care Teams Systems Design Engineer Relationship Specialty Start Date End Date Name, MD Rock [address] [place] [address] PCP - General Family Medicine 07/04/15 documented as of this encounter
--- OUTSIDE RECORDS SUMMARY | 2025-02-07 17:41 | XMS_ITS | Encounter Summary ---
Author Organization [employer] Address [address] [place] [address] Care Team Providers Care Education Administrator Name Role Phone Name, Rock DE PAZ Primary Care Provider [phone] Reason for Visit * Reason Onset Date Comments Med Refill 06/16/2024 Encounter Details Date Type Department Care Team (Late st Contact Info) Description 06/16/2024 Refill [facility] MEDICINE 230 [place], [place] [phone] Name, MD Rock [address] [place] [address] Chronic pain syndrome Social History Tobacco Use [...] 03/13/2025 1:00 PM EST Clinical Support [facility] MEDICINE 230 [place] [address] Corrie Chen, SCOUT documented as of this encounter Visit Diagnoses Diagnosis Chronic pain syndrome documented in this encounter Additional Health Concerns Assessment Noted Time PHQ-9 Depression Total Score: 17 025 2:50 PM EST documented as of this encounter Care Teams Education Administrator Relationship Specialty Start Date End Date Name, MD Rock [address] [place] [address] PCP - General Family Medicine 07/04/15 documented as of this encounter
--- OUTSIDE RECORDS SUMMARY | 2025-02-07 17:41 | XMS_ITS | Encounter Summary ---
Author Organization [employer] Address [address] [place] [address] [place] [address] Care Team Providers Care Telephone Clerks Supervisor Name Role Phone Name, Rock DE PAZ Primary Care Provider [phone] Reason for Visit * Reason Onset Date Comments Med Refill 11/26/2024 Encounter Details Date Type Department Care Team (Late st Contact Info) Description 11/26/2024 Refill [facility] MEDICINE 230 [place], [place] [phone] Name, MD Rock [address] [place] [address] High cholesterol; Statin intolerance Social History Tobacco [...] EST Clinical Support [facility] MEDICINE [address] [place] [address] Corrie Chen, SCOUT documented as of this encounter Visit Diagnoses Diagnosis High cholesterol Pure hypercholesterolemia Statin intolerance documented in this encounter Additional Health Concerns Assessment Noted Time PHQ-9 Depression Total Score: 17 025 2:50 PM EST documented as of this encounter Care Teams Telephone Clerks Supervisor Relationship Specialty Start Date End Date Name, MD Rock [address] [place] [address] PCP - General Family Medicine 07/04/15 documented as of this encounter
--- OUTSIDE RECORDS SUMMARY | 2025-02-07 17:41 | XMS_ITS | Encounter Summary ---
Author Organization [employer] Address [address] [place] [address] [place] [address] Care Team Providers Care Activity Manager Name Role Phone Name, Rock DE PAZ Primary Care Provider [phone] Reason for Visit * Reason Onset Date Comments Med Refill 03/03/2024 Encounter Details Date Type Department Care Team (Late st Contact Info) Description 03/03/2024 Refill [facility] MEDICINE 230 [place], [place] [phone] Name, MD Rock [address] [place] [address] Chronic pain syndrome Social History Tobacco Use [...] [facility] [address] [place] [address] Corrie Chen, SCOUT documented as of this encounter Visit Diagnoses Diagnosis Chronic pain syndrome documented in this encounter Additional Health Concerns Assessment Noted Time PHQ-9 Depression Total Score: 12 024 2:16 PM EDT documented as of this encounter Care Teams Activity Manager Relationship Specialty Start Date End Date Name, MD Rock [address] [place] [address] PCP - General Family Medicine 07/04/15 documented as of this encounter
--- OUTSIDE RECORDS SUMMARY | 2025-02-07 17:41 | XMS_ITS | Encounter Summary ---
Author Organization [employer] Address [address] [place] [address] [place], [place] [address] Care Team Providers Care Manager Stone Name Role Phone Name, Rock DE PAZ Primary Care Provider [phone] Reason for Visit * Reason Comments Med Refill Encounter Details Date Type Department Care Team (Late st Contact Info) Description 11/26/2022 Refill [facility] MEDICINE [address] [place] [address] [phone] Name, MD Rock [address] [place] [address] Chronic pain syndrome Social History Tobacco Use [...] Clinical Support [facility] MEDICINE [address] [place] [address] Corrie Chen, SCOUT documented as of this encounter Visit Diagnoses Diagnosis Chronic pain syndrome documented in this encounter Additional Health Concerns Assessment Noted Time PHQ-9 Depression Total Score: 21 11/20/ 023 10:14 AM EDT documented as of this encounter Care Teams Manager Stone Relationship Specialty Start Date End Date Name, MD Rock [address] [place] [address] PCP - General Family Medicine 07/04/15 documented as of this encounter
--- OUTSIDE RECORDS SUMMARY | 2025-02-07 17:41 | XMS_ITS | Encounter Summary ---
Author Organization [employer] Address [address] [place] [address] Care Team Providers Care Electrical Products Sales Engineer Name Role Phone Name, Rock DE PAZ Primary Care Provider [phone] Encounter Details Date Type Department Care Team (Late st Contact Info) Description 05/06/2022 Orders Only [facility] MEDICINE [address] [place] [address] Karen Falk LPN Social History Tobacco Use [...] EST Clinical Support [facility] MEDICINE [address] [place] [address] [phone] Corrie Chen, SCOUT documented as of this encounter Visit Diagnoses Not on filedocumented in this encounter Care Teams Electrical Products Sales Engineer Relationship Specialty Start Date End Date Name, MD Rock [address] [place] [address] PCP - General Family Medicine 07/04/15 documented as of this encounter
--- OUTSIDE RECORDS SUMMARY | 2025-02-07 17:41 | XMS_ITS | Encounter Summary ---
Author Organization [employer] Address [address] [place] [address] 7 [place] [address] Care Team Providers Care Correspondence Section Supervisor Name Role Phone NameRock MD Primary Care Provider [phone] Reason for Visit * Reason Comments Med Refill Encounter Details Date Type Department Care Team ([facility] st Contact Info) Description 11/29/2023 Refill [facility] [address] [place] [address] [phone] Name, MD Rock [address] [place] [address] Chronic pain syndrome Social History Tobacco Use [...] Clinical Support [facility] MEDICINE [address] [place] [address] Corrie Chen RN documented as of this encounter Visit Diagnoses Diagnosis Chronic pain syndrome documented in this encounter Additional Health Concerns Assessment Noted Time PHQ-9 Depression Total Score: 12 024 2:16 PM EDT documented as of this encounter Care Teams Correspondence Section Supervisor Relationship Specialty Start Date End Date Name, MD Rock [address] [place] [address] PCP - General Family Medicine 07/04/15 documented as of this encounter
--- OUTSIDE RECORDS SUMMARY | 2025-02-07 17:41 | XMS_ITS | Encounter Summary ---
Author Organization [employer] Address [address] [place] [address] [place] [address] Care Team Providers Care Bartender Name Role Phone Name, Rock DE PAZ Primary Care Provider [phone] Reason for Visit * Reason Comments Med Refill Encounter Details Date Type Department Care Team ([facility] st Contact Info) Description 08/22/2024 Refill [facility] MEDICINE 230 [place], [place] [phone] Name, MD Rock [address] [place] [address] Chronic pain syndrome Social History Tobacco Use [...] Description 03/13/2025 1:00 PM EST Clinical Support [facility] MEDICINE [address] [place] [address] Corrie Chen, SCOUT documented as of this encounter Visit Diagnoses Diagnosis Chronic pain syndrome documented in this encounter Additional Health Concerns Assessment Noted Time PHQ-9 Depression Total Score: 17 025 2:50 PM EST documented as of this encounter Care Teams Bartender Relationship Specialty Start Date End Date Name, MD Rock [address] [place] [address] PCP - General Family Medicine 07/04/15 documented as of this encounter
--- OUTSIDE RECORDS SUMMARY | 2025-02-07 17:41 | XMS_ITS | Encounter Summary ---
Author Organization [employer] Address [address] [place] [address] [place] [address] Care Team Providers Care Pick Up Truck Driver Name Role Phone Name, Rock DE PAZ Primary Care Provider [phone] Reason for Visit * Reason Onset Date Comments Med Refill 01/23/2025 Encounter Details Date Type Department Care Team (Late st Contact Info) Description 01/23/2025 Refill [facility] MEDICINE [address] [place], [place] [phone] Name, MD Rock [address] [place] [address] Social History Tobacco Use Types Packs/Day Years [...] EST Clinical Support [facility] [address] [place] [address] Corrie Chen, SCOUT documented as of this encounter Visit Diagnoses Not on filedocumented in this encounter Additional Health Concerns Assessment Noted Time PHQ-9 Depression Total Score: 17 025 2:50 PM EST documented as of this encounter Care Teams Pick Up Truck Driver Relationship Specialty Start Date End Date Name, MD Rock [address] [place] [address] PCP - General Family Medicine 07/04/15 documented as of this encounter
--- OUTSIDE RECORDS SUMMARY | 2025-02-07 17:41 | XMS_ITS | Encounter Summary ---
Author Organization [employer] Address [address] [place] [address] [place] [address] Care Team Providers Care Nitrating Acid Mixer Name Role Phone Name, Rock DE PAZ Primary Care Provider [phone] Reason for Visit * Reason Onset Date Comments Med Refill 03/02/2024 Encounter Details Date Type Department Care Team (Late st Contact Info) Description 03/02/2024 Refill [facility] MEDICINE 230 [place], [place] [phone] Name, MD Rock [address] [place] [address] Social History Tobacco Use Types Packs/Day Years [...] EST Clinical Support [facility] MEDICINE [address] [place] [address] Corrie Chen RN documented as of this encounter Visit Diagnoses Not on filedocumented in this encounter Additional Health Concerns Assessment Noted Time PHQ-9 Depression Total Score: 12 024 2:16 PM EDT documented as of this encounter Care Teams Nitrating Acid Mixer Relationship Specialty Start Date End Date Name, MD Rock [address] [place] [address] PCP - General Family Medicine 07/04/15 documented as of this encounter
--- OUTSIDE RECORDS SUMMARY | 2025-02-07 17:41 | XMS_ITS | Encounter Summary ---
Author Organization [employer] Address [address] [place] [address] Care Team Providers Care Decommissioning Well Site Manager Name Role Phone Name, Rock DE PAZ Primary Care Provider [phone] Reason for Visit * Reason Onset Date Comments Med Refill 05/09/2024 Encounter Details Date Type Department Care Team (Late st Contact Info) Description 05/09/2024 Refill [facility] MEDICINE 230 [place], [place] [phone] Name, MD Rock [address] [place] [address] Rhinorrhea Social History Tobacco Use Types Packs/Day [...] 1:00 PM EST Clinical Support [facility] MEDICINE [address] [place] [address] Corrie Chen, SCOUT documented as of this encounter Visit Diagnoses Diagnosis Rhinorrhea Other diseases of nasal cavity and sinuses documented in this encounter Additional Health Concerns Assessment Noted Time PHQ-9 Depression Total Score: 12 024 2:16 PM EDT documented as of this encounter Care Teams Decommissioning Well Site Manager Relationship Specialty Start Date End Date Name, MD Rock [address] [place] [address] PCP - General Family Medicine 07/04/15 documented as of this encounter
--- OUTSIDE RECORDS SUMMARY | 2025-02-07 17:41 | XMS_ITS | Encounter Summary ---
Author Organization [employer] Address [address] [place] [address] [place] [address] Care Team Providers Care Yard Driver Name Role Phone Name, Rock DE PAZ Primary Care Provider [phone] Reason for Visit * Reason Comments Med Refill Encounter Details Date Type Department Care Team ([facility] st Contact Info) Description 09/15/2024 Refill [facility] MEDICINE 230 [place], [place] [phone] Name, MD Rock [address] [place] [address] Hypophosphatemia Social History Tobacco Use Types Packs/Day [...] EST Clinical Support [facility] MEDICINE [address] [place] [address] Corrie Chen, RN documented as of this encounter Visit Diagnoses Diagnosis Hypophosphatemia Disorders of phosphorus metabolism documented in this encounter Additional Health Concerns Assessment Noted Time PHQ-9 Depression Total Score: 17 025 2:50 PM EST documented as of this encounter Care Teams Yard Driver Relationship Specialty Start Date End Date Name, MD Rock [address] [place] [address] PCP - General Family Medicine 07/04/15 documented as of this encounter
--- OUTSIDE RECORDS SUMMARY | 2025-02-07 17:41 | XMS_ITS | Encounter Summary ---
Author Organization [employer] Address [address] [place] [address] Care Team Providers Care Heel Lining Paster Name Role Phone Name, Rock DE PAZ Primary Care Provider [phone] Reason for Visit * Reason Onset Date Comments Med Refill 09/10/2024 Encounter Details Date Type Department Care Team (Late st Contact Info) Description 09/10/2024 Refill [facility] MEDICINE 230 [place], [place] [phone] Name, MD Rock [address] [place] [address] Hypophosphatemia Social History Tobacco Use Types Packs/Day [...] Description 03/13/2025 1:00 PM EST Clinical Support [facility] MEDICINE [address] [place] [address] Corrie Chen, SCOUT documented as of this encounter Visit Diagnoses Diagnosis Hypophosphatemia Disorders of phosphorus metabolism documented in this encounter Additional Health Concerns Assessment Noted Time PHQ-9 Depression Total Score: 17 025 2:50 PM EST documented as of this encounter Care Teams Heel Lining Paster Relationship Specialty Start Date End Date Name, MD Rock [address] [place] [address] PCP - General Family Medicine 07/04/15 documented as of this encounter
--- OUTSIDE RECORDS SUMMARY | 2025-02-07 17:41 | XMS_ITS | Encounter Summary ---
Author Organization [employer] Address [address] [place] [address] Care Team Providers Care Senior Sas Programmer Name Role Phone Name, Rock DE PAZ Primary Care Provider [phone] Reason for Visit * Reason Onset Date Comments Med Refill 03/10/2024 Encounter Details Date Type Department Care Team (Late st Contact Info) Description 03/10/2024 Refill [facility] [address], [place] [phone] Name, MD Rock [address] [place] [address] Hypophosphatemia Social History Tobacco Use Types Packs/Day [...] Description 03/13/2025 1:00 PM EST Clinical Support [facility] [address] [place] [address] Corrie Chen, SCOUT documented as of this encounter Visit Diagnoses Diagnosis Hypophosphatemia Disorders of phosphorus metabolism documented in this encounter Additional Health Concerns Assessment Noted Time PHQ-9 Depression Total Score: 12 024 2:16 PM EDT documented as of this encounter Care Teams Senior Sas Programmer Relationship Specialty Start Date End Date Name, MD Rock [address] [place] [address] PCP - General Family Medicine 07/04/15 documented as of this encounter
--- OUTSIDE RECORDS SUMMARY | 2025-02-07 17:41 | XMS_ITS | Clinical Summary ---
Author Organization [email or web address] Address [address] [place] [address] 7 [place] [address] Care Team Providers Care Terrazzo Grinder Name Role Phone Name, Rock DE PAZ Primary Care Provider [phone] Allergies Active Allergy Reactions Criticality Noted Date [...] to upcoming colonoscopy 1 tablet 024 Active Diclofenac Sodium 1 % gel APPLY 2 GRAMS OF GEL TOPICALLY TO AFFECTED AREA TWICE DAILY 100 g 024 Active omeprazole (PriLOSEC) [address] capsuleIndicat [...] swallow. 1 each 11 025 2025 Active ezetimibe (Zetia) 10 MG tabletIndicati ons:High cholesterol,St atin intolerance TAKE 1 TABLET BY MOUTH EVERY DAY 90 tablet 1 Active loratadine (Claritin) 10 MG tabletIndicati ons:Rhinorrhea TAKE 1 TABLET BY MOUTH EVERY MORNING 90 tablet 1 025 Active OXcarbazepine (Trileptal) 150 MG tabletIndicati ons:Hypophosph atemia Take 1 tablet by mouth twice daily 60 tablet 2 Active venlafaxine XR (Effexor XR) 75 MG 24 hr capsuleIndicat ions:Chronic pain syndrome,Insom shital, unspecified type TAKE 1 CAPSULE BY MOUTH ONCE DAILY WITH FOOD. TAKE WITH 150MG DOSE FOR A TOTAL OF 225MG. 90 capsule 1 Active busPIRone (Buspar) 30 MG tabletIndicati ons:Insomnia, [...] mouth Once per day. 025 2025 Active fluticasone (Flonase) 50 MCG/ACT nasal sprayIndicatio ns:Rhinorrhea SPRAY 2 SPRAYS INTO EACH NOSTRIL EVER DAY. SHAKE GENTLY. BEFORE FIRST USE, PRIME PUMP. AFTER USE, CLEAN TIP AND REPLACE CAP. 16 g 2 Active carisoprodol (Soma) 350 MG tabletIndicati ons:Chronic pain syndrome TAKE 1 TABLET BY MOUTH ONCE DAILY IN THE MORNING,AT NOON, IN THE EVENING AND AT BEDTIME FOR MUSCLE SPASM FOR UP TO 23 DAYS 90 tablet Active traMADol (Ultram) 50 MG tabletIndicati ons:Chronic pain syndrome Take 1 tablet (50 mg) by mouth every 8 (eight) hours if needed for severe pain for up to 28 days. 84 tablet 025 2024 Active zolpidem (Ambien) 10 MG tabletIndicati ons:Insomnia, unspecified type TAKE 1 TABLET BY MOUTH ONCE DAILY AT BEDTIME NEEDED FOR SLEEP 28 tablet Active naloxone (Narcan) 4 mg/0.1 mL nasal sprayIndicatio ns:Chronic pain syndrome Administer 1 spray (4 mg) into affected nostril(s) if needed for opioid reversal. May repeat every 2-3 minutes if needed, alternating nostrils, until medical assistance becomes available. 2 each 3 024 2024 fluticasone (Flonase) 50 MCG/ACT nasal sprayIndicatio ns:Rhinorrhea SPRAY 2 SPRAYS INTO EACH NOSTRIL EVER DAY. SHAKE GENTLY. BEFORE FIRST USE, PRIME PUMP. AFTER USE, CLEAN TIP AND REPLACE CAP. 16 g 2 025 2024 Discontinued(R eorder (will not trigger notification to Pharmacy)) traMADol (Ultram) 50 MG tabletIndicati ons:Chronic pain syndrome Take 1 tablet (50 mg) by mouth every 8 (eight) hours if needed for severe pain for up to 28 days. Do not start before December 15, 2024. 84 tablet 025 2024 Discontinued(R eorder (will [...] complication Complex partial seizure with impairment of consciousness (CMS/HCC) 06/12/2021 Carcinoma of thyroid (CMS/HCC) 09/11/2020 Gastroesophageal reflux disease 09/11/2020 Anxiety 09/11/2020 [...] Date Diagnosed Date Resolved Date Morbid obesity (CMS/HCC) 06/08/202205/2023 Acute cough 04/03/2022 07/27/2023 Assessment & Plan [...] Encounters Date Type Department Care Team Description 02/01/2025 Telephone [facility] [address] [place] [address] NameRock MD Nutrition Appointment 01/23/2025 Refill [facility] [address] [place] [address] Rock Rodrigues MD 01/23/2025 Refill [facility] [address], [place] [phone] Rock Rodrigues MD Insomnia, unspecified type 01/17/2025 Refill [facility] [address] [place] [address] Rock Rodrigues MD Chronic pain syndrome 01/17/2025 Refill [facility] [address] [place] [address] Rock Rodrigues MD Rhinorrhea; Chronic pain syndrome 01/04/2025 Results Follow-Up [facility] GOMEZ Agustin [phone] Rock Rodrigues MD CBC auto differential, Comprehensive Metabolic Panel, PTH, Intact Without Calcium, Additional followed-up results: 5 2025 2:30 PM EDT Office Visit [facility] GOME[facility] Agustin [phone] Rock Rodrigues MD Hypertension, unspecified type (Primary Dx); Class 1 drug-induced obesity with serious comorbidity and body mass index (BMI) of 30.0 to 30.9 in adult; Primary osteoarthritis of both knees; History of repair of hiatal hernia 2025 Travel 2025 Orders Only [facility] Agustin [phone] Rock Rodrigues MD 12/29/2024 Refill [facility] Agustin [phone] Rock Rodrigues MD Insomnia, unspecified type; Chronic pain syndrome; Hypophosphatemia 12/29/2024 Telephone [facility] [place] [address] Rock Rodrigues MD Chart Prep 12/25/2024 Travel 12/18/2024 Refill [facility] [place] [address] Shavon Fletcher MD Insomnia, unspecified type 12/15/2024 Refill [facility] [place] [address] Rock Rodrigues MD Hypophosphatemia 12/12/2024 1:00 PM EDT Clinical Support [facility] [place] [address] Corrie Chen, SCOUT Long-term current use of opiate analgesic (Primary Dx) 12/12/2024 Refill [facility] [place] [address] Corrie Chen, railroad brakeman pain syndrome 12/12/2024 Travel 12/07/2024 Refill [facility] [place] [address] Rock Rodrigues MD Chronic pain syndrome 12/05/2024 2:00 PM EDT Office Visit [facility] [address] [place] [address] Fany Pearson MD Chronic low back pain, unspecified back pain laterality, unspecified whether sciatica present (Primary Dx); Primary osteoarthritis of both knees 12/05/2024 Travel 12/01/2024 11:30 AM EDT Office Visit [facility] [address] [place] [address] Tiffany Fairbanks MD Seborrheic keratosis (Primary Dx); Benign nevus 12/01/2024 Refill [facility] [address] [place] [address] Rock Rodrigues MD High cholesterol; Statin intolerance 12/01/2024 Travel 11/26/2024 Refill [facility] [address] [place] [address] Rock Rodrigues MD High cholesterol; Statin intolerance 11/24/2024 Travel 11/20/2024 Refill [facility] [address] [place] [address] NameRock MD Insomnia, unspecified type 11/14/2024 Refill [facility] [address] [place] [address] Rock Rodrigues MD Chronic pain syndrome 11/14/2024 Refill [facility] [address] [place] [address] Rock Rodrigues MD Chronic pain syndrome; Insomnia, unspecified type 11/14/2024 Telephone [facility] [address] [place] [address] Rock Rodrigues MD Referral 11/07/2024 Refill [facility] [address] [place] [address] Rock Rodrigues MD Hypophosphatemia 11/07/2024 Telephone [facility] [address] [place] [address] Rock Rodrigues MD Lab Orders from Last 3 Months Immunizations Immunization Administration Dates Next Due INFLUENZA VACCINE QUADRIVALE NT RECOMBINANT PRESERVATIVE FREE RIV4 01/20/2020,02/09/2019 Influenza injectable quadriv alent preservative free 02/15/2023,01/07/2022,02/17/2021,01/15,01/28/2017,01/22/2016 Influenza, IIV3, injectable 01/07/2015,1 ,02/16/2013,01/10,01/24/2009 Influenza, Recombinant, inje ctable, preservative free 02/01/2024 Novel [id number], preservative-free 04/03/2009 Pfizer Covid-19 Vaccine 12+ 03/29/2023 [...] 03/13/2025 1:00 PM EST Clinical Support [facility] [address] [place] [phone] Corrie Chen, RN Health Maintenance Due Date [...] Procedure Name Priority Date/Time Associated Diagnosis Comments AMB REFERRAL TO ORTHOPAEDIC SURGERY Routine 01/25/2025 Primary osteoarthritis of both knees FL UPPER GI W AIR W BARIUM SWALLOW Routine 01/15/2025 7:59 AM EDT VITAMIN B1 Routine 01/11/2025 12:57 PM EDT Hypertension, unspecified type Bariatric surgery status High cholesterol Statin intolerance HOLD LAVENDER - POSSIBLE HEMATOLOGY Routine 2025 [...] Recently Relevant to Health Maintenance Results * Referral to Orthopaedic Surgery (01/25/2025) us Rock Rodrigues MD OUTPATIENT REFERRAL ORDERABLES F inal Result * FL Upper GI w/air w/Barium Swallow (01/15/2025 7:59 AM EDT) Anatomical Region Laterality Modality Body Radiographic Fe ging 01/15/2025 7:59 AM EDT Narrative 01/15/2025 8:50 AM EDT [address] [address] Fluoroscopy Report Signed Patient: Coleen Tyler MR#: [id number] : 1960 Acct:[id number] Age/Sex: 65 / F ADM Date: 01/15/25 Loc: HO.XRAY Attending Dr: Lisa Salas [facility] Ordering Physician[facility] Date of Service: 01/15/25 Procedure(s): FL upper GI w air w Ba Swallow Accession Number(s): [id number] cc: Name,Rock DE PAZ; Lisa Salas [facility] Reason for Exam: K21.9 - Gastro-esophageal reflux disease without esophagitis EXAMINATION: XR UPPER GI SERIES WITH BARIUM SWALLOW CLINICAL INFORMATION: Gastroesophageal reflux disease . COMPARISON: None available. TECHNIQUE: Seen upper GI air contrast study and barium swallow was performed. FINDINGS: Following oral administration of thick barium and effervescent granules there is propagation of bolus from the oral cavity through the pharynx, esophagus into stomach without any evidence of obstruction, narrowing or stricture. There is slow initiation of bolus from the oral cavity on several occasions. No laryngeal penetration or aspiration seen. The esophagus is widely patent On placing patient supine and prone lying there is evidence of previous gastric sleeve surgery. there is a distended mid and distal esophagus simulating small hiatal hernia with moderate food residue in mid and distal esophagus which clears with time. The mucosal pattern of the esophagus, stomach and the duodenum is normal. The course, caliber and peristalsis of stomach and the duodenum is normal. On oral administration of saltine crackers with barium paste in upright view there is normal oral mastication and propagation bolus from the oral cavity through the pharynx, esophagus into stomach. No obstruction to solid food. FLUOROSCOPY TIME: 2 minute 12 seconds DOSE AREA PRODUCT: 52.39 uGy-m2 (microgray-meter squared) FL/FL upper GI w air w Ba Swallow IMPRESSION: There is slow initiation of bolus from the oral cavity on several occasions. The esophagus is widely patent except for distended mid and distal esophagus which clears with time. Gastric sleeve surgical changes. No hiatal hernia suspected. There is normal mucosal pattern and peristalsis of stomach and the duodenum. Electronically signed by: Warner Chase MD 01/15/2025 08:47 AM EDT RP Dictated By: Warner Chase MD Signed By: <Electronically signed by Warner Chase MD in OV> 01/15/25 0847 DD/ 0759 TD/TT: 01/15/25 08 Bus Van Driver: [facility] [place] Donotuseinterpreter, Image - 01/15/[address] [address] Fluoroscopy Report Signed Patient: JaysonDianaMR#: [id number] : 1960cct:[id number] Age/Sex: 65 / FADM Date: 01/15/25 Loc: HO.SHARAY Attending Dr: Lisa [facility] Ordering Physician: Lisa Salas Date of Service: 01/15/25 Procedure(s): FL upper GI w air w Ba Swallow Accession Number(s): [id number] cc: Name,Rock DE PAZ; Lisa Salas OCCUPATIONAL MEDICINE PHYSICIAN-[facility] Reason for Exam: K21.9 - Gastro-esophageal reflux disease withoutesophagitis EXAMINATION: XR UPPER GI SERIES WITH BARIUM SWALLOW CLINICAL INFORMATION: Gastroesophageal reflux disease . COMPARISON: None available. TECHNIQUE: Seen upper GI air contrast study and barium swallow was performed. FINDINGS: Following oral administration of thick barium and effervescent granules there is propagation of bolus from the oral cavity through the pharynx, esophagus into stomach without any evidence of obstruction, narrowing or stricture. There is slow initiation of bolus from the oral cavity on several occasions. No laryngeal penetration or aspiration seen. The esophagus is widely patent On placing patient supine and prone lying there is evidence of previous gastric sleeve surgery. there is a distended mid and distal esophagus simulating small hiatal hernia with moderate food residue in mid and distal esophagus which clears with time. The mucosal pattern of the esophagus, stomach and the duodenum is normal. The course, caliber and peristalsis of stomach and the duodenum is normal. On oral administration of saltine crackers with barium paste in upright view there is normal oral mastication and propagation bolus from the oral cavity through the pharynx, esophagus into stomach. No obstruction to solid food. FLUOROSCOPY TIME: 2 minute 12 seconds DOSE AREA PRODUCT: 52.39 uGy-m2 (microgray-meter squared) FL/FL upper GI w air w Ba Swallow IMPRESSION: There is slow initiation of bolus from the oral cavity on several occasions. The esophagus is widely patent except for distended mid and distal esophagus which clears with time. Gastric sleeve surgical changes. No hiatal hernia suspected. There is normal mucosal pattern and peristalsis of stomach and the duodenum. Electronically signed by: Warner Chase MD 01/15/2025 08:47 AM EDT RP Dictated By: Warner Chase MD Signed By: <Electronically signed by Warner Chase MD in OV> 01/15/25 0847 DD/ 0759 TD/TT: 01/15/25826 Bus Van Driver: [facility] Exter nal Provider IMG FLUOROSCOPY PROCEDURES Edited Result - Final * Vitamin B1 (01/11/2025 12:57 PM EDT) Vitamin B1 16 8 - 30 nmol/L [facility] Comment:Vitamin supplementat ion within 24 hours prior toblood draw may affect the accuracy of the results.This test was developed and its analytical performancecharacteristics have been determined by [facility] [place], [place]. It hasnot been cleared or approved by the U.S. Food and DrugAdministration. This assay has been validated pursuantto the CLIA regulations and is used for clinicalpurposes.THIS TEST WAS PERFORMED AT:[employer] [place] [address]WYAIATMCARMELITA WRIGHT MD,PHD Blood Venous blood specimen / Unknown 01/11/2025 12:57 PM EDT 01/11/2025 12:57 PM EDT Rock Rodrigues MD LAB BLOOD ORDERABLES Final Resul t [facility] [address] [place] [address] [phone] * Hold Lavender - Possible Hematology (2025 12:39 PM EDT) Hold Lavender - Possible Hematololgy SEE NOTE [facility] Comment:Specimen will be hel d untested for 8 hours. Call Hematologyif testing is desired. 2025 12:3 9 PM EDT 2025 2:09 PM EDT us Rock Name MD HISTORICAL/NON ORDERABLE LABS Fi nal Result [facility] [address] [place] [address] [phone] * Vitamin D, 25-Hydroxy, Total, Immunoassay (2025 12:39 PM EDT) [facility] Vitamin D 25-OH Total 45.0 >30 ng/mL [facility] Comment: Health Based Reference Values*< 20 ng/mL Zckopdlsd80-91 ng/mL Insufficient> 30 ng/mL Sufficient*Elver KRUSE. N [...] ORDERABLES Final Resul t Performing Organization Address [facility]/ZIP Co de Phone Number [facility] [address] [place] [phone] * Vitamin B12/Folate, Serum Panel (2025 12:39 PM EDT) Pathologist [facility] Vitamin B12 439 200 - 900 pg/mL [facility] Comment:NORMAL 200-900 PG/ML INDETERMINATE 160-199 PG/ML DEFICIENT < 160 PG/ML Folate 9.2 > or = 4.0 ng/mL [facility] Comment:Reference Values:> o r = [...] ORDERABLES Final Resul t Performing Organization Address [facility] Co de Phone Number [facility] [address] [place] [phone] * (ABNORMAL) CBC auto differential (2025 12:39 PM EDT) [facility] White Blood Count 5.6 4.8 - 10.8 X10*3/uL [facility] Red Blood Count 4.43 4.20 - 5.50 X10*6/uL [facility] Hemoglobin 13.7 12.0 - 16.0 g/dl [facility] Hematocrit 40.2 37.0 - 47.0 % [facility] Mean Corpuscular Volume 90.7 80.0 - 98.0 fL [facility] Mean Corpuscular Hemoglobin 30.9 27.0 - 33.0 pg [facility] Mean Corpuscular HGB Conc 34.1 31.0 - 35.0 g/dl [facility] Red Cell Distribution Width 12.2 11.0 - 16.0 % [facility] Platelet Count 270 160 - 400 X10*3/uL [facility] Mean Platelet Volume 12.4(H) 9.4 - 12.3 fL [facility] Neutrophils Percent Auto 48.6 45 - 73 % [facility] Imm Gran Pct Auto 0.4 0.0 - 0.4 % [facility] Lymphocytes Percent Auto 42.6(H) 20 - 40 % [facility] Monocytes Percent Auto 5.9 2 - 11 % [facility] Eosinophils Percent Auto 1.6 0 - 4 % [facility] Basophils Percent Auto 0.9 0 - 2 % [facility] NRBC Pct Auto 0.0 0.0 - 0.2 /100WBC [facility] Neutrophils Absolute Auto 2.8 2.0 - 8.3 x10*3/uL [facility] Imm Gran Abs Auto 0.02 0.00 - 0.03 X10*3/uL [facility] Lymphocytes Absolute Auto 2.4 1.2 - 4.9 X10*3/uL [facility] Monocytes Absolute Auto 0.3 0.1 - 1.2 X10*3/uL [facility] Eosinophils Absolute Auto 0.1 0.0 - 0.4 X10*3/uL [facility] Basophils Absolute Auto 0.1 0.0 - 0.2 X10*3/uL [facility] NRBC Abs Auto 0.000 0.0 - 0.012 X10*3/uL [facility] Blood Venous blood specimen / Unknown 2025 12:39 PM EDT 2025 12:39 PM EDT us Rock Rodrigues MD LAB BLOOD ORDERABLES Final Resul t [facility] [address] [place] [phone] * (ABNORMAL) Iron And Total Iron Binding Capacity (2025 12:39 PM EDT) Iron 213(H) 30 - 160 mcg/dL [facility] Total Iron Binding Capacity 394 228 - 428 mcg/dL [facility] Percent Iron Saturation 54(H) 15 - 50 % [facility] Unsaturated Iron Binding 181 ug/dL [facility] Blood Venous blood specimen / Unknown 2025 12:39 PM EDT 2025 12:39 PM EDT us Rock Rodrigues MD LAB BLOOD ORDERABLES Final Resul t Performing Organization Address [facility]/ZIP Co de Phone Number [facility] [address] [place] [phone] * Hepatitis A Antibody, Total (2025 12:39 PM EDT) Hepatitis A Antibody IgG Nonreactive Nonreactive [facility] Blood Venous blood specimen / Unknown 2025 12:39 PM EDT 2025 12:39 PM EDT us Rock Rodrigues MD LAB BLOOD ORDERABLES Final Resul t Performing Organization Address [facility]/ZIP Co de Phone Number [facility] [address] [place] [phone] * Zinc (2025 12:39 PM EDT) Zinc 69 60 - 130 mcg/dL [facility] Comment:This test was develo ped and its analytical performancecharacteristics have been determined by [facility] [place], [place]. It hasnot been cleared or approved by the U.S. Food and DrugAdministration. This assay has been validated pursuantto the CLIA regulations and is used for clinicalpurposes.THIS TEST WAS PERFORMED AT:[employer]/[address] [place] [address]PDWOSITCARMELITA WRIGHT MD,PHD Blood Venous blood specimen / Unknown 2025 12:39 PM EDT 2025 12:39 PM EDT Rock Rodrigues MD LAB BLOOD ORDERABLES Final Resul t Performing Organization Address City/[facility]/ZIP Co de Phone Number [facility] [address] [place] [phone] * TSH (2025 12:39 PM EDT) Thyroid Stimulating Hormone 1.72 0.32 - 4.0 uIU/mL [facility] Comment:TSH 3rd Generation ( [facility]) 2025 12:3 9 PM EDT 2025 12:39 PM EDT us Generic External Data Provider LAB BLOOD ORDERAB LES Final Result Performing Organization Address [facility] Co de Phone Number [facility] [address] [place] [phone] * T4, Free (2025 12:39 PM EDT) Free T4 (Free Thyroxine) 1.05 0.71 - 1.85 ng/dL [facility] 2025 12:3 9 PM EDT 2025 12:39 PM EDT us Generic External Data Provider LAB BLOOD ORDERAB LES Final Result Performing Organization Address [facility] Co de Phone Number [facility] [address] [place] [phone] * PTH, Intact Without Calcium (2025 12:39 PM EDT) Parathyroid Hormone, Intact 58.8 8.7 - 77.1 pg/mL [facility] Blood Venous blood specimen / Unknown 2025 12:39 PM EDT 2025 12:39 PM EDT us Rock Rodrigues MD LAB BLOOD ORDERABLES Final Resul t Performing Organization Address City/[facility]/ZIP Co de Phone Number [facility] [address] [place] [phone] * Ferritin (2025 12:39 PM EDT) Ferritin 17 10 - 250 ng/mL [facility] Blood Venous blood specimen / Unknown 2025 12:39 PM EDT 2025 12:39 PM EDT us Rock Rodrigues MD LAB BLOOD ORDERABLES Final Resul t Performing Organization Address [facility] de Phone Number [facility] [address] [place] [phone] * Comprehensive Metabolic Panel (2025 12:39 PM EDT) Sodium 142 135 - 145 mmol/L [facility] Potassium 4.9 3.3 - 5.1 mmol/L [facility] Chloride 108 96 - 108 mmol/L [facility] Carbon Dioxide 25 22 - 29 mmol/L [facility] Anion Gap 14 12 - 20 [facility] Urea Nitrogen (BUN) 13 9 - 16 mg/dL [facility] Creatinine, Serum 0.67 0.5 - 1.4 mg/dL [facility] Estimated Glomerular Filt Rate >60 [facility] Comment:Chronic Kidney Disea se: Estimated GFR < 60 mL/min/1.00o4Tydsku Kidney Disease: Estimated GFR < 15 mL/min/1.73m2 Glucose 81 60 - 115 mg/dL [facility] Calcium 9.1 8.4 - 10.2 mg/dL [facility] Bilirubin, Total 0.3 0.0 - 1.0 mg/dL [facility] Aspartate Amino Transferase 24 5 - 31 U/L [facility] Alanine Aminotransferase 23 0 - 31 U/L [facility] Total Protein 7.2 6.5 - 8.0 g/dL [facility] Albumin Level 4.4 3.5 - 5.0 g/dL [facility] Alkaline Phosphatase 51 39 - 117 U/L [facility] Blood Venous blood specimen / Unknown 2025 12:39 PM EDT 2025 12:39 PM EDT us Rock Rodrigues MD LAB BLOOD ORDERABLES Final Resul t Performing Organization Address [facility] [facility]ZIP Co de Phone Number [facility] [address] [place] [phone] * Collagen Cross-Linked N-Telopeptide (NTx), U (2025 10:15 AM EDT) N Telopetide (NTx) 10 see note [facility] Comment:Result Units: nM BCE /mM creatPremenopausal Females: 4 - 64 nM BCE/mM creatResults are primarily used for monitoring theresponse to therapy. A value within thepremenopausal range does not rule out osteoporosisnor the need for therapyUnits of Measure: nM BCE/mM creat CREATININE, RANDOM URINE 46 20 - 275 mg/dL [facility] Comment:THIS TEST WAS PERFOR MED AT:[facility] [place] [address]AGBBTBTCARMELITA WRIGHT MD,PHD 2025 10:1 5 AM EDT 2025 12:45 PM EDT us Generic External Data Provider LAB URINE ORDERAB LES Final Result Performing Organization Address [facility]/ZIP Co de Phone Number [facility] [address] [place] [phone] * (ABNORMAL) POCT PAULETTE-14 Urine Drug [...] - 12/12/2024 1:21 PM EDT UTOX cup Lot#[id number] Exp. 01/30/26 Internal Pass Control us Rock Rodrigues MD POINT OF CARE TEST ENTER/EDIT OR DERABLES Final Result * Phencyclidine Screen, Urine (12/12/2024 12:00 AM EDT) Phencyclidine Screen Urine Not Detected Not Detect [facility] Comment:Phencyclidine cut-of f is 25 ng/mL.Positive results are unconfirmed and should not be used fornon-medical purposes. Urine 12/12/2024 12/12/2024 us Rock Rodrigues MD LAB URINE ORDERABLES Final Resul t [facility] [address] [place] [phone] * Drug Monitoring, Methadone Metabolite, Screen, Urine (12/12/2024 12:00 AM EDT) Methadone Screen, Urine Not Detected Not Detect ng/mL [facility] Comment:Methadone cut-off is 300 ng/mL.Positive results are unconfirmed and should not be used fornon-medical purposes. Urine 12/12/2024 12/12/2024 us Rock Rodrigues MD LAB URINE ORDERABLES Final Resul t [facility] [address] [place] [phone] * BI Mammogram Screening Tomosynthesis Bilateral (02/04/2024 1:40 PM EDT) Anatomical Region Laterality Modality Breast Bilateral Mammography 02/04/2024 1:40 PM EDT Narrative 02/17/2024 9:45 PM EDT [address] [place] [address] Mammography Report Signed Patient: Coleen Tyler MR#: [id number] : 1960 Acct:[id number] Age/Sex: 64 / F ADM Date: 02/04/24 Loc: HO.MAMMO Attending Dr: Rock Rodrigues MD Ordering Physician: Rock Rodrigues MD Results: 1Negative Date of Service: 02/04/24 Follow Up: 1 Year From Orig inal Mammogram Procedure(s): MM tomosynthesis screening BI Accession Number(s): [id number] cc: Rock Rodrigues MD EXAMINATION: MM SCREENING [...] by Kristal Santos DO in OV> 02/17/24 214 DD/ 1340 TD/TT: 02/04/24 1358 Bus Van Driver: Procedure Note Donotuseinterpreter, Image - 02/17/2024 [facility] [address] [place] [address] Mammography Report Signed Patient: JaysonDianaMR#: [id number] : 1960cct:[id number] Age/Sex: 64 / FADM Date: 02/04/24 Loc: HO.MAMMO Attending Dr: Rock Rodrigues MD Ordering Physician: Rock Rodrigues MDResults: 1Negative Date of Service: 02/04/24Follow Up: 1 Year From Orig inal Mammogram Procedure(s): MM tomosynthesis screening BI Accession Number(s): [id number] cc: Rock Rodrigues MD EXAMINATION: MM SCREENING [...] OV> 02/17/242141 DD/ 1340 TD/TT: 02/04/24 1358 Bus Van Driver: Rock Name IMG BI PROCEDURES Edited Result - Final * (ABNORMAL) Lipid Panel, Standard (12/07/2023 11:55 AM EDT) Triglycerides 236(H) <150 mg/dL [facility] Comment:Desirable Triglyceri de: less than 150 mg/dLBorderline High Triglyceride 150-199 mg/dLHigh Triglyceride: 200-499 mg/dLVery High Triglyceride: greater than or equal to 5OO mg/dL Cholesterol 300(H) <200 mg/dL [facility] Comment:Desirable Cholestero l: less than 200 mg/dLBorderline High Cholesterol: 200-239 mg/dLHigh Cholesterol: greater than 239 mg/dL LDL Cholesterol Calculated 214(H) <100 mg/dL [facility] Comment:Desirable LDL: less than 100 mg/dLNear Optimal/Above Optimal LDL: 110- 129 mg/dLBorderline High LDL: 130-159 mg/dLHigh LDL: 160-189 mg/dLVery High LDL: greater than or equal to 190 mg/dL HDL Cholesterol 39(L) >40 mg/dL [facility] Comment:Desirable HDL: great er than 40 mg/dL Note: This HDL assay may give artificially low results in patients with liver disease. 12/07/2023 11:5 5 AM EDT 12/07/2023 11:55 AM EDT Generic External Data Provider LAB BLOOD ORDERAB LES Final Result [facility] [address] [place] [address] [phone] * Colonoscopy (11/22/2023) Colonoscopy Normal Normal Rock Name HEALTH MAINTENANCE Final Result * [...] has been evaluated with computer assisted technology. [facility] It Sales Consultant: SEE COMMENT [facility] Comment: VICTOR MANUEL SPAULDING(ASCP) CT screening location: [place] [address] HPV nRNA E6/E7 Not Detected Not Detected [facility] Comment: Methodology: Manager Distribution Center-Mediated Amplification This assay detects E6/E7 viral messenger RNA (mRNA) from 14 high-risk HPV types (16,18,31,33,35,39,45,51,52,56,58,59,66,68). Cervical sources are required for HPV testing. If a vaginal source from a patient who has had a total hysterectomy with removal of cervix was submitted, please contact the testing laboratory for alternative testing options. For additional information, please refer to http://education.[employer]/faq/TJW154t3 (This link if provided for information/ educational purposes only.) Interpretation/Res ult: SEE COMMENT [facility] Comment: Negative for intraepithelial lesion or malignancy. Atrophic pattern; predominantly parabasal cells LMP: MENOPAUSE X 48 [facility] Prev. BX: NONE GIVEN [facility] Prev. PAP: YES [facility] SOURCE: None given [facility] Statement Of Adequacy: SATISFACTORY FOR EVALUATION [facility] 01/07/2022 3:18 PM EDT us Tisha Venegas CNM LAB PATHOLOGY ORDERABLES Final Result [facility] [address] [place] [address], * HEPATITIS C AB W/REFL TO HCV RNA, QN, PCR (12/23/2021 2:35 PM EDT) HEPATITIS C ANTIBODY NON-REACT MARK NON-REACT MARK [facility] INDEX 0.12 <1.00 [facility] Comment: HCV antibody was non-reactive. There is no laboratory evidence of HCV infection. In most cases, no further action is required. However, if recent HCV exposure is suspected, a test for HCV RNA (test code 47995) is suggested. For additional information please refer to http://[employer] [place]/faq/JWS52q4 (This link is being provided for informational/ educational purposes only.) 12/23/2021 2:35 PM EDT us Rock Rodrigues MD HISTORICAL/NON ORDERABLE LABS Fi nal Result Performing Organization Address [facility] de Phone Number [facility] [address] * HIV 1/2 ANTIGEN/ANTIBODY,FOURTH GENERATION W/RFL (02/17/2021 3:50 PM EDT) HIV-1/2 ANTIGEN AND ANTIBODIES, 4TH GENERATION W/ REFLEX NON-REACT MARK NON-REACT MARK [facility] Comment: HIV-1 antigen and HIV-1/HIV-2 [...] purpose. For additional information please refer to http://[employer] [place]/faq/MGO986 (This link is being provided for informational/ educational purposes only.) The performance of this assay has not been clinically validated in patients less than 2 years old. 02/17/2021 3:50 PM EDT us Rock Rodrigues MD LAB BLOOD ORDERABLES Final Resul t Performing Organization Address [facility] Co de Phone Number [facility] [address] from Last 3 Months or Most Recently Relevant to Health Maintenance Insurance [place] [id number] [facility] STANDARD [employer] MEDICARE REPLACEMENT Care Teams Terrazzo Grinder Relationship Specialty Start Date End Date Name, MD Rock [address] [place] [phone] PCP - General Family Medicine 07/04/15
--- OUTSIDE RECORDS SUMMARY | 2025-02-07 17:41 | XMS_ITS | Encounter Summary ---
Author Organization [employer] Address [address] [place] [address] [place] [address] Care Team Providers Care Retail Inventory Control Clerk Name Role Phone Name, Rock DE PAZ Primary Care Provider [phone] Reason for Visit * Reason Onset Date Comments Med Refill 04/27/2024 Encounter Details Date Type Department Care Team (Late st Contact Info) Description 04/27/2024 Refill [facility] [address] [place], [place] [phone] Name, MD Rock [address] [place] [address] Chronic pain syndrome Social History Tobacco Use [...] Clinical Support [facility] [address] [place] [address] Corrie Chen, SCOUT documented as of this encounter Visit Diagnoses Diagnosis Chronic pain syndrome documented in this encounter Additional Health Concerns Assessment Noted Time PHQ-9 Depression Total Score: 12 024 2:16 PM EDT documented as of this encounter Care Teams Retail Inventory Control Clerk Relationship Specialty Start Date End Date Name, MD Rock [address] [place] [address] PCP - General Family Medicine 07/04/15 documented as of this encounter
--- OUTSIDE RECORDS SUMMARY | 2025-02-07 17:41 | XMS_ITS | Encounter Summary ---
Author Organization [employer] Address [address] [place] [address] Care Team Providers Care Bindery Cutter Operator Name Role Phone Name, Rock DE PAZ Primary Care Provider [phone] Reason for Visit * Reason Onset Date Comments Med Refill 06/14/2024 Encounter Details Date Type Department Care Team (Late st Contact Info) Description 06/14/2024 Refill [facility] [address] [place], [place] [phone] Name, MD Rock [address] [place] [address] Chronic pain syndrome Social History Tobacco Use [...] Description 03/13/2025 1:00 PM EST Clinical Support [facility] [address] [place] [address] Corrie Chen, SCOUT documented as of this encounter Visit Diagnoses Diagnosis Chronic pain syndrome documented in this encounter Additional Health Concerns Assessment Noted Time PHQ-9 Depression Total Score: 17 025 2:50 PM EST documented as of this encounter Care Teams Bindery Cutter Operator Relationship Specialty Start Date End Date Name, MD Rock [address] [place] [address] PCP - General Family Medicine 07/04/15 documented as of this encounter
--- OUTSIDE RECORDS SUMMARY | 2025-02-07 17:41 | XMS_ITS | Encounter Summary ---
Author Organization [employer] Address [address] [place] [address] [place] [address] Care Team Providers Care Geospatial Intelligence Analyst Name Role Phone Name, Rock DE PAZ Primary Care Provider [phone] Reason for Visit * Reason Comments Med Refill Encounter Details Date Type Department Care Team ([facility] st Contact Info) Description 09/11/2024 Refill [facility] [address] [place], [place] [phone] Name, MD Rock [address] [place] [address] Hypophosphatemia Social History Tobacco Use Types Packs/Day [...] Description 03/13/2025 1:00 PM EST Clinical Support [facility] [address] [place] [address] Corire Chen, RN documented as of this encounter Visit Diagnoses Diagnosis Hypophosphatemia Disorders of phosphorus metabolism documented in this encounter Additional Health Concerns Assessment Noted Time PHQ-9 Depression Total Score: 17 025 2:50 PM EST documented as of this encounter Care Teams Geospatial Intelligence Analyst Relationship Specialty Start Date End Date Name, MD Rock [address] [place] [address] PCP - General Family Medicine 07/04/15 documented as of this encounter
--- OUTSIDE RECORDS SUMMARY | 2025-02-07 17:41 | XMS_ITS | Encounter Summary ---
Author Organization [employer] Address [address] [place] [address] Care Team Providers Care Subject Scientific Research Name Role Phone Name, Rock DE PAZ Primary Care Provider [phone] Reason for Visit * Reason Onset Date Comments Med Refill 08/01/2024 Encounter Details Date Type Department Care Team (Late st Contact Info) Description 08/01/2024 Refill [facility] [address] [place], [place] [phone] Name, MD Rock [address] [place] [address] Chronic pain syndrome Social History Tobacco Use [...] Description 03/13/2025 1:00 PM EST Clinical Support [facility] [address] [place] [address] Corrie Chen, SCOUT documented as of this encounter Visit Diagnoses Diagnosis Chronic pain syndrome documented in this encounter Additional Health Concerns Assessment Noted Time PHQ-9 Depression Total Score: 17 025 2:50 PM EST documented as of this encounter Care Teams Subject Scientific Research Relationship Specialty Start Date End Date Name, MD Rock [address] [place] [address] PCP - General Family Medicine 07/04/15 documented as of this encounter
--- OUTSIDE RECORDS SUMMARY | 2025-02-07 17:41 | XMS_ITS | Encounter Summary ---
Author Organization [email or web address] Address [address] [place] [address] 7 [place] [address] Care Team Providers Care Senior Infrastructure Architect Name Role Phone Name, Rock DE PAZ Primary Care Provider [phone] Reason for Visit * Reason Onset Date Comments Medication Question 05/31/2023 Encounter Details Date Type Department Care Team ([facility] st Contact Info) Description 05/31/2023 Telephone [facility] [address] [place], [place] [phone] Name, MD Rock [address] [place] [address] Medication Question Social History Tobacco Use Types [...] a week . pt. Advised to call Director Of Market Intelligence because medication was prescribe by Director Of Market Intelligence. Pt. States pricing manager also prescribe blood works before prescribing these medication, but as per pt. PCP is managing kidney related function and low phosphorus so want to discuss about these medication. Pt. Advised that message will be sent to PCP for review. Please review and advise. Tc from pt requesting to speak with provider in regards to two medications that are being offered by the Director Of Market Intelligence which are Pimwall which has to be injected every single day and Levaradi which is once a week . Pt would like to discuss this with PCP or nurse to verify if it's okay and which medication should she go for due to her medical History. Please contact pt @ [phone] * Telephone Encounter - Esperanza Bravo - 05/31/2023 2:02 PM EST Tc from pt requesting to speak with provider in regards to two medications that are being offered by the Director Of Market Intelligence which are Pimwall which has to be injected every single day and Levaradi whichis once a week . Pt would like to discuss this with PCP or nurse to verify if it's okay and which medication should she go for due to her medical History. Please contact pt @ [phone] documented in this encounter Plan of Treatment Upcoming Encounters Date Type Department Care Team (Late st Contact Info) Description 03/13/2025 1:00 PM EST Clinical Support [facility] [address] [place] [address] Corrie Chen, RN documented as of this encounter Visit Diagnoses Not on filedocumented in this encounter Additional Health Concerns Assessment Noted Time PHQ-9 Depression Total Score: 21 023 10:14 AM EDT documented as of this encounter Care Teams Senior Infrastructure Architect Relationship Specialty Start Date End Date Name, MD Rock [address] [place] [id number] PCP - General Family Medicine 07/04/15 documented as of this encounter
--- OUTSIDE RECORDS SUMMARY | 2025-02-07 17:41 | XMS_ITS | Encounter Summary ---
Author Organization [employer] Address [address] [place] [address] Care Team Providers Care Associate Professor Of Automation Name Role Phone Name, Rock DE PAZ Primary Care Provider [phone] Reason for Visit * Reason Onset Date Comments Med Refill 06/14/2024 Encounter Details Date Type Department Care Team (Late st Contact Info) Description 06/14/2024 Refill [facility] [address] [place], [place] [phone] Name, MD Rock [address] [place] [address] Chronic pain syndrome Social History Tobacco Use [...] 03/13/2025 1:00 PM EST Clinical Support [facility] [address] [place] [address] Corrie Chen, SCOUT documented as of this encounter Visit Diagnoses Diagnosis Chronic pain syndrome documented in this encounter Additional Health Concerns Assessment Noted Time PHQ-9 Depression Total Score: 17 025 2:50 PM EST documented as of this encounter Care Teams Associate Professor Of Automation Relationship Specialty Start Date End Date Name, MD Rock [address] [place] [address] PCP - General Family Medicine 07/04/15 documented as of this encounter
--- OUTSIDE RECORDS SUMMARY | 2025-02-07 17:41 | XMS_ITS | Encounter Summary ---
Author Organization [employer] Address [address] [place] [address] Care Team Providers Care Client Operations Manager Name Role Phone Name, Rock DE PAZ Primary Care Provider [phone] Reason for Visit * Reason Onset Date Comments Med Refill 06/03/2024 Encounter Details Date Type Department Care Team (Late st Contact Info) Description 06/03/2024 Refill [facility] [address] [place], [place] [phone] Name, MD Rock [address] [place] [address] Hypophosphatemia Social History Tobacco Use Types Packs/Day [...] Description 03/13/2025 1:00 PM EST Clinical Support [facility] [address] [place] [address] Corrie Chen, SCOUT documented as of this encounter Visit Diagnoses Diagnosis Hypophosphatemia Disorders of phosphorus metabolism documented in this encounter Additional Health Concerns Assessment Noted Time PHQ-9 Depression Total Score: 17 025 2:50 PM EST documented as of this encounter Care Teams Client Operations Manager Relationship Specialty Start Date End Date Name, MD Rock [address] [place] [address] PCP - General Family Medicine 07/04/15 documented as of this encounter
--- OUTSIDE RECORDS SUMMARY | 2025-02-07 17:41 | XMS_ITS | Encounter Summary ---
Author Organization [employer] Address [address] [place] [address] [place] [address] Care Team Providers Care Glass Robot Operator Name Role Phone Name, Rock DE PAZ Primary Care Provider [phone] Reason for Visit * Reason Onset Date Comments Med Refill 02/09/2024 Encounter Details Date Type Department Care Team (Late st Contact Info) Description 02/09/2024 Refill [facility] [address] [place], [place] [phone] Name, MD Rock [address] [place] [address] Social History Tobacco Use Types Packs/Day Years [...] 1:00 PM EST Clinical Support [facility] [address] [place] [address] Corrie Chen RN documented as of this encounter Visit Diagnoses Not on filedocumented in this encounter Additional Health Concerns Assessment Noted Time PHQ-9 Depression Total Score: 12 024 2:16 PM EDT documented as of this encounter Care Teams Glass Robot Operator Relationship Specialty Start Date End Date Name, MD Rock [address] [place] [address] PCP - General Family Medicine 07/04/15 documented as of this encounter
--- OUTSIDE RECORDS SUMMARY | 2025-02-07 17:41 | XMS_ITS | Encounter Summary ---
Author Organization [employer] Address [address] [place] [address] Care Team Providers Care Fork Lift Technician Name Role Phone Name, Rock DE PAZ Primary Care Provider [phone] Reason for Visit * Reason Onset Date Comments Med Refill 09/10/2024 Encounter Details Date Type Department Care Team (Late st Contact Info) Description 09/10/2024 Refill [facility] [address] [place], [place] [phone] Name, MD Rock [address] [place] [address] Chronic pain syndrome Social History Tobacco Use [...] 03/13/2025 1:00 PM EST Clinical Support [facility] [address] [place] [address] Corrie Chen, SCOUT documented as of this encounter Visit Diagnoses Diagnosis Chronic pain syndrome documented in this encounter Additional Health Concerns Assessment Noted Time PHQ-9 Depression Total Score: 17 025 2:50 PM EST documented as of this encounter Care Teams Fork Lift Technician Relationship Specialty Start Date End Date Name, MD Rock [address] [place] [address] PCP - General Family Medicine 07/04/15 documented as of this encounter
--- OUTSIDE RECORDS SUMMARY | 2025-02-07 17:41 | XMS_ITS | Encounter Summary ---
Author Organization [employer] Address [address] [place] [address] 7 [place] [address] Care Team Providers Care Inspector Balance Bridge Name Role Phone Name, Rock DE PAZ Primary Care Provider [phone] Reason for Visit * Reason Comments Med Refill Encounter Details Date Type Department Care Team ([facility] st Contact Info) Description 04/26/2023 Refill [facility] [address] [place], [place] [phone] Name, MD Rock [address] [place] [address] Insomnia, unspecified type Social History Tobacco Use [...] 03/13/2025 1:00 PM EST Clinical Support [facility] [address] [place] [address] Corrie Chen RN documented as of this encounter Visit Diagnoses Diagnosis Insomnia, unspecified type documented in this encounter Additional Health Concerns Assessment Noted Time PHQ-9 Depression Total Score: 21 023 10:14 AM EDT documented as of this encounter Care Teams Inspector Balance Bridge Relationship Specialty Start Date End Date Name, MD Rock [address] [place] [address] PCP - General Family Medicine 07/04/15 documented as of this encounter
--- OUTSIDE RECORDS SUMMARY | 2025-02-07 17:41 | XMS_ITS | Encounter Summary ---
Author Organization [employer] Address [address] [place] [address] 7 [place] [address] Care Team Providers Care An/Syq 13 Nav/C2 Operator Name Role Phone Name, Rock DE PAZ Primary Care Provider [phone] Reason for Visit * Reason Comments Med Refill Encounter Details Date Type Department Care Team (Late st Contact Info) Description 03/04/2023 Refill [facility] [address] [place] [address] Christine Doe FNP Social History Tobacco Use [...] PM EST Clinical Support [facility] [address] [place] [address] Corrie Chen RN documented as of this encounter Visit Diagnoses Not on filedocumented in this encounter Additional Health Concerns Assessment Noted Time PHQ-9 Depression Total Score: 21 023 10:14 AM EDT documented as of this encounter Care Teams An/Syq 13 Nav/C2 Operator Relationship Specialty Start Date End Date Name, MD Rock [address] [place] [address] PCP - General Family Medicine 07/04/15 documented as of this encounter
--- OUTSIDE RECORDS SUMMARY | 2025-02-07 17:41 | XMS_ITS | Encounter Summary ---
Author Organization [employer] Address [address] [place] [address] Care Team Providers Care Technical Editor Name Role Phone Name, Rock DE PAZ Primary Care Provider [phone] Reason for Visit * Reason Comments Med Refill Encounter Details Date Type Department Care Team ([facility] Contact Info) Description 09/21/2022 Refill [facility] MED[facility]INE [address] [place] [address] Name, MD Rock [address] [place] [address] Insomnia, unspecified type; Pain Social History Tobacco [...] Upcoming Encounters Date Type Department Care Team ([facility] Contact Info) Description 03/13/2025 1:00 PM EST Clinical Support [facility] MED[facility]INE [address] [place] [address] Corrie Chen, RN documented as of this encounter Visit Diagnoses Diagnosis Insomnia, unspecified type Pain Generalized pain documented in this encounter Care Teams Technical Editor Relationship Specialty Start Date End Date Name, MD Rock [address] [place] [address] PCP - General Family Medicine 07/04/15 documented as of this encounter
--- OUTSIDE RECORDS SUMMARY | 2025-02-07 17:41 | XMS_ITS | Encounter Summary ---
Author Organization [employer] Address [address] [place] [address] Care Team Providers Care Event Crew Technician Name Role Phone Name, Rock DE PAZ Primary Care Provider [phone] Reason for Visit * Reason Onset Date Comments Med Refill 03/10/2024 Encounter Details Date Type Department Care Team (Late st Contact Info) Description 03/10/2024 Refill [facility] MED[facility]INE [address] [place], [place] [phone] Name, MD Rock 230 [place] [address] Insomnia, unspecified type Social History Tobacco Use [...] Clinical Support [facility] [address] [place] [address] Corrie Chen, SCOUT documented as of this encounter Visit Diagnoses Diagnosis Insomnia, unspecified type documented in this encounter Additional Health Concerns Assessment Noted Time PHQ-9 Depression Total Score: 12 024 2:16 PM EDT documented as of this encounter Care Teams Event Crew Technician Relationship Specialty Start Date End Date Name, MD Rock [address] [place] [address] PCP - General Family Medicine 07/04/15 documented as of this encounter
--- OUTSIDE RECORDS SUMMARY | 2025-02-07 17:41 | XMS_ITS | Encounter Summary ---
Author Organization [employer] Address [address] [place] [address] Care Team Providers Care Drupal Programmer Name Role Phone Name, Rock DE PAZ Primary Care Provider [phone] Reason for Visit * Reason Onset Date Comments Med Refill 10/23/2024 Encounter Details Date Type Department Care Team (Late st Contact Info) Description 10/23/2024 Refill [facility] [address] [place], [place] [phone] Name, MD Rock [address] [place] [address] Insomnia, unspecified type Social History Tobacco Use [...] 1:00 PM EST Clinical Support [facility] [address] [place] [address] Corrie Chen, SCOUT documented as of this encounter Visit Diagnoses Diagnosis Insomnia, unspecified type documented in this encounter Additional Health Concerns Assessment Noted Time PHQ-9 Depression Total Score: 17 025 2:50 PM EST documented as of this encounter Care Teams Drupal Programmer Relationship Specialty Start Date End Date Name, MD Rock [address] [place] [address] PCP - General Family Medicine 07/04/15 documented as of this encounter
--- OUTSIDE RECORDS SUMMARY | 2025-02-07 17:41 | XMS_ITS | Data Portability ---
Author Organization [place] - [employer] [facility], [facility], [facility] Address [address] [place] [id number] Care Team Providers Care Plate Maker Name Role Phone RITA MICHEL Referring Provider Assessment No assessment recorded. Plan of Treatment Reminders Order Date Submit Date Provider Last Modified By Organization Details Last Modified Time Details Appointments None recorded. Lab None recorded. Referral None recorded. Procedures None recorded. Surgeries None recorded. Imaging None recorded. Medication Orders Augmentin 875 mg-125 mg tablet 2020 021 ISAK [id number]/, [address] [place], [address], 11:35:58 tramadol 50 mg tablet 2020 021 [place] [id number]/, [address] [place], [address], 11:40:00 Patient TargetsNo targets recorded. Patient Instructions Encounter Date Encounter Id Patient Instructions Last Modified By Organization Details Last Modified Time 09/11/2020 [id number] Follow-up with PCP, or if can't get in with PCP, at the walk-in if no better or ER if any worse, or any red flag symptoms. Patient voiced understanding and agreement with treatment plan. [email or web address] Not available 09/11/2020 16:39:46 Reason for Referral None Reported. Problems Name Problem SNOMED Code Status Onset Date Resolution Date Notes Provider Name and Address Organization Details Recorded Time Hypercholes terolemia 97987913 Active 2020 CHITO [facility]lo [facility], [facility] 10:58:44 Insomnia 604222029 Active 2020 [facility] 11:06:37 Depressive disorder 43729980 Active 2020 [facility] 11:06:55 Anxiety 57223661 Active 2020 [facility] 11:07:11 Hyperthyroi dism 10111201 Active 2020 [facility] 11:07:58 Carcinoma of thyroid 048551538 Active 2020 [facility] 11:08:23 Acid reflux 021195155 Active 2020 [facility] 11:08:33 Gastroesoph ageal reflux disease 987869045 Active 2020 [facility], [facility] 11:09:08 History of back pain 1882280082390 02 [facility] 11:09:21 Problem Notes None recorded. Medical Equipment None Reported. Allergies Allergen ID Allergen Name Allergen Category Reaction Reaction Severity Criticality Documentation Date Start Date Code Code System Note Provider Name and Address Organization Details Recorded Time 366907 Product containin g 3-hydroxy -3-methyl glutaryl- coenzyme A reductase inhibitor (product) medicatio n anaphylax is itching rash Not available Not available Not available Not available 09/11/2020 38040 009 SNOMED [facility] 10:49:15 259067 Substance with sulfonami de structure and antibacte rial mechanism of action (substanc e) medicatio n itching rash Not available Not available Not available 09/11/2020 58761 8003 SNOMED [facility], [facility] 10:49:15 Medications Name Sig Start [...] blood by Pulse oximetry Respiratory rate Systolic And Diastolic Provider Name and Address Organization Details Last Updated DateTime 1 346444. 09 g 39.2 kg/m2 170.18 cm 96.8 [degF] 82 /min 98 % 98 % 17 /min 124/80 mm[Hg] Elissa Loredo [facility], [facility] 10:55:03 Social History Question Answer Notes LastModified by Organizat ion Details LastModified Time Tobacco Smoking Status Former Smoker Elissa clements [facility], [facility] 09/11/2020 10:49:15 How Much Tobacco Do You Chew? None [email or web address] Information not available 09/11/2020 Marital Status [email or web address] Informatio n not available 09/11/2020 How Much Tobacco Do You Smoke? No [email or web address] Information not available 09/11/2020 Sex: Unknown Functional Status Question Answer Note LastModified by Organizat ion Details LastModified Time Do you or have you ever used smokeless tobacco? Never used smokeless tobacco [email or web address] Information not available 09/11/2020 Do you or have you ever used e-cigarettes or vape? Never used electronic cigarettes [email or web address] Information not available 09/11/2020 Mental Status None recorded. Family History Relationship Description Onset Age of this Age Resolved Age Notes LastModified by Organization Details LastModified Time Unspecified Relation Family history of malignant neoplasm [email or web address] Not available 09/11 10:59:06 Medical History Condition [...] Diagnosis SNOMED-CT Code Diagnosis ICD10 Code Diagnosis IMO Codes Diagnosis Note [id number] NIKOLAI Gaitan [facility] [address] [place] [address] 09/11/2020 10:30:20 09/11/2020 11:53:48 Acute periodontal abscess 02845155 K05.219 Acute. Initial Encounter. Not controlled . Will add Augmentin 875-125 BID x 10 days. (No CKD per pt) Continue Clindamyci n as directed. She is taking probiotics already. Discussed new medication , possible side effects, and risk of CDiff with Clinda as well as other abx. Tramadol offers good pain control. I will send refill until she can f/u with PCP up [place]. She is encouraged to see a dentist in [place] prior to flying back next week. She will call Dr. Melo who she has seen previously . She may need to have this drained. Soft foods only. Tylenol/Mo addis for pain prn. every 6 hours. ER for acute changes Chronic back pain 213264 002 G89.29 Chronic, controlled with Tramadol, stable F/U with PCP up [place] [facility] Concerns Section Related Observation LastModified by Organization Detai ls LastModified Time None Recorded Concern Status LastModified by Organization Details LastModified Time None Recorded Advance Directives Directive None Recorded Payers Insurance Date Sequence Insurance Name Policy Number Policy Walls Covered Member ID Walls Member ID Guarantor Name 11/11/2020 2 [place] [facility] Coleen Polo 1 1 Coleen Polo 05/17/2021 1 [place] Coleen Polo [id number] Coleen Polo Notes Date Note Type Note Provider Name and Address Organization Details Recorded Time 09/11/2020 text/html ROS as noted in the HPI CORONAVIRUS SCREENING TOOL Are you experiencing any [...] have you received? 2 doses Imported from [place] on 09/11/2020 60yo F c/o left lower [...] an appointment to see a dentist in [place]. She denies fever/chills or other symptoms. Jennie Williamson MD [address] [address], [place], [address], [facility], [facility] 09/11/2020 21:53:38 OBGyn Episode No OBEpisode recorded.
--- OUTSIDE RECORDS SUMMARY | 2025-02-07 17:41 | XMS_ITS | Encounter Summary ---
Author Organization [employer] Address [address] [place] [address] [place] [address] Care Team Providers Care Account Technician Name Role Phone Name, Rock DE PAZ Primary Care Provider [phone] Reason for Visit * Reason Onset Date Comments Med Refill 03/02/2024 Encounter Details Date Type Department Care Team (Late st Contact Info) Description 03/02/2024 Refill [facility] MEDICINE [address] [place], [place] [phone] Name, MD Rock [address] [place] [address] Chronic pain syndrome Social History Tobacco Use [...] Description 03/13/2025 1:00 PM EST Clinical Support [facility] [address] [place] [address] Corrie Chen, SCOUT documented as of this encounter Visit Diagnoses Diagnosis Chronic pain syndrome documented in this encounter Additional Health Concerns Assessment Noted Time PHQ-9 Depression Total Score: 12 024 2:16 PM EDT documented as of this encounter Care Teams Account Technician Relationship Specialty Start Date End Date Name, MD Rock [address] [place] [address] PCP - General Family Medicine 07/04/15 documented as of this encounter
--- OUTSIDE RECORDS SUMMARY | 2025-02-07 17:41 | XMS_ITS | Encounter Summary ---
Author Organization [employer] Address [address] [place] [address] 7 [place] [address] Care Team Providers Care Distribution Field Engineer Name Role Phone Name, Rock DE PAZ Primary Care Provider [phone] Encounter Details Date Type Department Care Team (Latest Contact Info) Description 01/04/2025 Results Follow-Up [facility] MEDICINE [address] [place] [address] [phone] Name, MD Rock [address] [place] [address] CBC auto differential, Comprehensive Metabolic Panel, PTH, [...] Support [facility] [address] [place] [address] Corrie Chen, SCOUT documented as of this encounter Visit Diagnoses Not on filedocumented in this encounter Additional Health Concerns Assessment Noted Time PHQ-9 Depression Total Score: 17 025 2:50 PM EST documented as of this encounter Care Teams Distribution Field Engineer Relationship Specialty Start Date End Date Name, MD Rock [address] [place] [address] PCP - General Family Medicine 07/04/15 documented as of this encounter
--- OUTSIDE RECORDS SUMMARY | 2025-02-07 17:42 | XMS_ITS | Encounter Summary ---
Author Organization [employer] Address [address] [place] [address] 7 [place] [address] Care Team Providers Care Real Estate Legal Assistant Name Role Phone Name, Rock DE PAZ Primary Care Provider [phone] Reason for Visit * Reason Comments Med Refill Encounter Details Date Type Department Care Team (Late st Contact Info) Description 11/18/2022 Refill [facility] MEDICINE [address] [place] [phone] Name, MD Rock [address] [place] [address] Chronic pain syndrome Social History Tobacco Use [...] Description 03/13/2025 1:00 PM EST Clinical Support [facility] MEDICINE [address] [place] [address] Corrie Chen, SCOUT documented as of this encounter Visit Diagnoses Diagnosis Chronic pain syndrome documented in this encounter Care Teams Real Estate Legal Assistant Relationship Specialty Start Date End Date Name, MD Rock [address] [place] [address] PCP - General Family Medicine 07/04/15 documented as of this encounter
--- OUTSIDE RECORDS SUMMARY | 2025-02-07 17:42 | XMS_ITS | Encounter Summary ---
Author Organization [employer] Address [address] [place] [address] Care Team Providers Care Material Mixer Name Role Phone Name, Rock DE PAZ Primary Care Provider [phone] Reason for Visit * Reason Comments Med Refill Encounter Details Date Type Department Care Team (Late st Contact Info) Description 11/23/2022 Refill [facility] MEDICINE [address] [place], [place] [phone] Fany Pearson MD [address] [place] [address] Chronic pain syndrome; Insomnia, unspecified type Social [...] Description 03/13/2025 1:00 PM EST Clinical Support [facility] [address] [place] [address] Corrie Chen, RN documented as of this encounter Visit Diagnoses Diagnosis Chronic pain syndrome Insomnia, unspecified type documented in this encounter Additional Health Concerns Assessment Noted Time PHQ-9 Depression Total Score: 21 023 10:14 AM EDT documented as of this encounter Care Teams Material Mixer Relationship Specialty Start Date End Date Name, MD oRck [address] [place] [address] PCP - General Family Medicine 07/04/15 documented as of this encounter
--- OUTSIDE RECORDS SUMMARY | 2025-02-07 17:42 | XMS_ITS | Encounter Summary ---
Author Organization [employer] Address [address] [place] [address] Care Team Providers Care Wind Operations Supervisor Name Role Phone Name, Rock DE PAZ Primary Care Provider [phone] Reason for Visit * Reason Onset Date Comments Med Refill 01/31/2024 Encounter Details Date Type Department Care Team ([facility] st Contact Info) Description 01/31/2024 Refill [facility] [address] [place] [address] Juhi Diaz, HUMAN RESOURCES OPERATIONS SPECIALIST [address] [place] [address] Chronic pain syndrome; Insomnia, unspecified type Social [...] Description 03/13/2025 1:00 PM EST Clinical Support [facility]INE 230 [place] [address] Corrie Chen, RN documented as of this encounter Visit Diagnoses Diagnosis Chronic pain syndrome Insomnia, unspecified type documented in this encounter Additional Health Concerns Assessment Noted Time PHQ-9 Depression Total Score: 12 024 2:16 PM EDT documented as of this encounter Care Teams Wind Operations Supervisor Relationship Specialty Start Date End Date Name, MD Rock [address] [place] [address] PCP - General Family Medicine 07/04/15 documented as of this encounter
--- OUTSIDE RECORDS SUMMARY | 2025-02-07 17:42 | XMS_ITS | Encounter Summary ---
Author Organization [employer] Address [address] [place] [address] 7 [place] [address] Care Team Providers Care It Architecture Consultant Name Role Phone Name, Rock DE PAZ Primary Care Provider Reason for Visit * Reason Comments Med Refill Encounter Details Date Type Department Care Team (Late st Contact Info) Description 11/20/2022 Refill [facility] MEDICINE [address] [place], [place] [phone] Fany Pearson MD [address] [place] [address] Chronic pain syndrome; Insomnia, unspecified type Social [...] PM EST Clinical Support [facility] MED[facility]INE [address] [place] [address] Corrie Chen, RN documented as of this encounter Visit Diagnoses Diagnosis Chronic pain syndrome Insomnia, unspecified type documented in this encounter Additional Health Concerns Assessment Noted Time PHQ-9 Depression Total Score: 21 11/20/ 023 10:14 AM EDT documented as of this encounter Care Teams It Architecture Consultant Relationship Specialty Start Date End Date Name, MD Rock [address] [facility] [place] [address] PCP - General Family Medicine 07/04/15 documented as of this encounter
--- OUTSIDE RECORDS SUMMARY | 2025-02-07 17:42 | XMS_ITS | Encounter Summary ---
Author Organization [employer] Address [address] [place] [address] [place] [address] Care Team Providers Care Thermo Processor Name Role Phone Name, Rock DE PAZ Primary Care Provider [phone] Reason for Visit * Reason Onset Date Comments Med Refill 05/08/2024 Encounter Details Date Type Department Care Team (Late st Contact Info) Description 05/08/2024 Refill [facility] MEDICINE [address] [place], [place] [phone] Name, MD Rock [address] [place] [address] Chronic pain syndrome; Insomnia, unspecified type Social [...] Support [facility] MEDICINE [address] [place] [address] Corrie Chen, RN documented as of this encounter Visit Diagnoses Diagnosis Chronic pain syndrome Insomnia, unspecified type documented in this encounter Additional Health Concerns Assessment Noted Time PHQ-9 Depression Total Score: 12 024 2:16 PM EDT documented as of this encounter Care Teams Thermo Processor Relationship Specialty Start Date End Date Name, MD Rock [address] [place] [address] PCP - General Family Medicine 07/04/15 documented as of this encounter
--- OUTSIDE RECORDS SUMMARY | 2025-02-07 17:42 | XMS_ITS | Encounter Summary ---
Author Organization [employer] Address [address] [place] [address] [place] [address] Care Team Providers Care Rouge Presser Name Role Phone Name, Rock DE PAZ Primary Care Provider [phone] Reason for Visit * Reason Onset Date Comments Med Refill 02/09/2024 Encounter Details Date Type Department Care Team (Late st Contact Info) Description 02/09/2024 Refill [facility] MEDICINE [address] [place], [place] [phone] Name, MD Rock [address] [place] [address] Insomnia, unspecified type Social History Tobacco Use [...] Description 03/13/2025 1:00 PM EST Clinical Support [facility] [address] [place] [address] Corrie Chen, SCOUT documented as of this encounter Visit Diagnoses Diagnosis Insomnia, unspecified type documented in this encounter Additional Health Concerns Assessment Noted Time PHQ-9 Depression Total Score: 12 024 2:16 PM EDT documented as of this encounter Care Teams Rouge Presser Relationship Specialty Start Date End Date Name, MD Rock [address] [place] [address] PCP - General Family Medicine 07/04/15 documented as of this encounter
--- OUTSIDE RECORDS SUMMARY | 2025-02-07 17:42 | XMS_ITS | Encounter Summary ---
Author Organization [employer] Address [address] [place] [address] [place] [address] Care Team Providers Care Outside Barrel Lathe Operator Name Role Phone Name, Rock DE PAZ Primary Care Provider [phone] Reason for Visit * Reason Onset Date Comments Med Refill 02/09/2024 Encounter Details Date Type Department Care Team (Late st Contact Info) Description 02/09/2024 Refill [facility] [address] [place], [place] [phone] Name, MD Rock [address] [place] [address] Chronic pain syndrome; Insomnia, unspecified type Social [...] Support [facility] [address] [place] [address] Corrie Chen, RN documented as of this encounter Visit Diagnoses Diagnosis Chronic pain syndrome Insomnia, unspecified type documented in this encounter Additional Health Concerns Assessment Noted Time PHQ-9 Depression Total Score: 12 024 2:16 PM EDT documented as of this encounter Care Teams Outside Barrel Lathe Operator Relationship Specialty Start Date End Date Name, MD Rock [address] [place] [address] PCP - General Family Medicine 07/04/15 documented as of this encounter
--- OUTSIDE RECORDS SUMMARY | 2025-02-07 17:42 | XMS_ITS | Encounter Summary ---
Author Organization [employer] Address [address] [place] [address] [place] [address] Care Team Providers Care Silo Tender Name Role Phone Name, Rock DE PAZ Primary Care Provider [phone] Reason for Visit * Reason Onset Date Comments Med Refill 02/09/2024 Encounter Details Date Type Department Care Team (Late st Contact Info) Description 02/09/2024 Refill [facility] MEDICINE [address] [place], [place] [phone] Name, MD Rock [address] [place] [address] Chronic pain syndrome Social History Tobacco Use [...] Description 03/13/2025 1:00 PM EST Clinical Support [facility] MEDICINE [address] [place] [address] Corrie Chen, SCOUT documented as of this encounter Visit Diagnoses Diagnosis Chronic pain syndrome documented in this encounter Additional Health Concerns Assessment Noted Time PHQ-9 Depression Total Score: 12 024 2:16 PM EDT documented as of this encounter Care Teams Silo Tender Relationship Specialty Start Date End Date Name, MD Rock [address] [place] [address] PCP - General Family Medicine 07/04/15 documented as of this encounter
== END 2025-02-07 13:55 | disposition home or self-care (01) ==
LOC: HO.MAMMO 13:54
PROVIDERS: PCP Internal Medicine Geriatric Medicine; Visit Provider Internal Medicine Geriatric Medicine
DX: Z12.31 Encounter for screening mammogram for malignant neoplasm of breast (principal)
CPT/HCPCS: 77063; 77067

== ENCOUNTER → 2025-02-07 14:00 | Outpatient (BNV) | payer MEDICARE, MEDICAID, SELFPAY | PROVIDERS: PCP Internal Medicine Geriatric Medicine; Visit Provider Radiology Body Imaging | DX: Z12.31 Encounter for screening mammogram for malignant neoplasm of breast (principal) | CPT/HCPCS: 77063; 77067 ==

== ENCOUNTER 2025-03-07 13:59 | Outpatient (AMB) | payer MEDICARE, MEDICAID, SELFPAY ==
[2025-03-07 14:16] VITALS: BP 122/82; PULSE 68; O2SAT 96; BMI 31.1
--- NOTE | 2025-03-07 14:16 | A.OFFVIS_ITS ---
Vital Signs 03/07/25 14:16 Height 5 ft 7 in Weight 198 lb 6.656 oz BMI 31.1 BP 122/82 Blood Pressure Location Rt brachial Position Sitting Pulse 68 Pulse Source Pulse Oximeter Pulse Oximetry (%) 96 Oxygen Delivery Method Room Air Intake Visit Reasons: f/u Osteoporosis Intake Note: Patient present today for Osteoporosis follow up. Improvement Intern Required: No Accompanied by: Self / Same As Patient Allergies pravastatin Allergy (Severe, Verified 03/07/25 14:19) Blister Sulfa (Sulfonamide Antibiotics) Allergy (Severe, Verified 03/07/25 14:19) Itching HPI Comments Details: 65 YO Female with a PMHx of thyroid cancer s/p total thyroidectomy who is seen in F/U for a history of thyroid cancer and Osteoporosis. Today's visit focus on the osteoporosis ) Osteoporosis: First diagnosed in 2014. She has never been treated in the past. Has 0-1 servings of dietary calcium per day. Takes 2 Tums per day which contains Calcium. Takes 1000 IU of Vitamin D daily. Denies ever using anticoagulant, antiepileptic or regular glucocorticoid medication. Currently does not exercise. Fracture history: Traumatic fracture of her L leg in 2014. 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 Menses always regular. . Breastfed for less than 6 months total. Menopause age 50, was induced by Lupron. Has a history of recurrent nephrolithiasis but is unsure what type of stones. Reports a family history of Osteoporosis but no hip fracture. UTD on dental cleanings and sees dentist every 6 months. No planned upcoming dental work or extractions. DXA: 01/20/2022 FINDINGS: AP SPINE L2-L3 (excluding L1 and L4):? The data of L1-L4 has been changed to exclude the L3 and L4 vertebral bodies because mild degenerative changes at these levels may cause overestimation of the lumbar spine density.? BMD 0.816 g/cm2, Z-score minus 3.1, T-score -3.2, osteoporosis. LEFT FEMUR, NECK: BMD 0.920 g/cm2, Z-score -0.3, T-score -0.9, normal. LEFT FEMUR, TOTAL: BMD 1.013 g/cm2, Z-score 0.2, T-score 0.0, normal. US Head and Neck: 01/14/2021 FINDINGS: Lymph nodes of normal size, morphology and echotexture are detected within the right and left neck. No lymphadenopathy. Within the right neck, the largest lymph nodes are 0.4 cm short axis dimension at level 1B and level 5B In the left neck, one of the largest lymph nodes is 0.3 cm short axis dimension at level 5B. No soft tissue mass or fluid collection. IMPRESSION: Normal lymph nodes are seen within the neck in this patient who has previously undergone thyroidectomy. There is no sonographic evidence of lymphadenopathy. Labs: Laboratory Tests 05/04/22 09/29/22 09/29/22 14:30 12:05 12:05 Creatinine 0.68 Estimated GFR > 60 Calcium 9.3 Phosphorus 2.5 L Albumin 4.1 PEP Interpretation SEE NOTE N-Telopeptide X-linked 25-OH Vitamin D Total 32.2 TSH 3.07 Free T4 1.04 Thyroglobulin PTH Intact 66 Calcium (PTH Intact) 9.0 Thyroglobulin Antibody 09/29/22 10/19/22 12:05 09:04 Creatinine Estimated GFR Calcium Phosphorus Albumin PEP Interpretation N-Telopeptide X-linked 63 25-OH Vitamin D Total TSH Free T4 Thyroglobulin <0.1 PTH Intact Calcium (PTH Intact) Thyroglobulin Antibody <1 Took alendronate but stopped 2 after taking 3-4 mos because of joint pains , Tibia fx in distant past . Recent DEXA showed showed dramatic increases in bone density as outlined below. Received 11 mos of Evenity last dose to be given this month followed by a dose of Reclast next month FINDINGS: LEFT FEMUR, NECK: Current: BMD 0.884 g/cm2, Z-score -0.2, T-score -1.1, osteopenia. Baseline: BMD 0.920 g/cm2. LEFT FEMUR, TOTAL: Current: BMD 0.984 g/cm2, Z-score 0.4, T-score -0.2, normal, 2.9% decrease from baseline (<5% change is not significant). Baseline: BMD 1.013 g/cm2. AP SPINE L1-L4: Current: BMD 1.188 g/cm2, Z-score 0.8, T-score 0.1, normal, 34.2% increase from baseline (<5% change is not significant). Baseline: BMD 0.885 g/cm2. IDENTIFIED RISK FACTORS: Menopause, history of fracture (adult), anticonvulsant, osteoporosis, recurrent falls, rheumatoid arthritis, right oophorectomy, secondary osteoporosis (partial gastrectomy). HISTORY OF FRACTURE: Fibula. MEDICATIONS: Calcium, vitamin D, bisphosphonate. MM/XR DEXA axial skeleton IMPRESSION: 1. DIAGNOSIS: Osteopenia based on the lowest T-score value of -1.1 in the femoral neck applying World Health Organization criteria. Took a course of Evenity follow up by Carolynt. Urine NTX is suppressed The patient is a 65-year-old female presenting with osteoporosis management and weight concerns. The patient has been receiving Reclast for osteoporosis, which has shown improvement in bone density as evidenced by a low urine NTX turnover marker. She is advised to continue calcium and vitamin D supplementation and engage in weight-bearing exercises. [facility] Medical History Pre-op evaluation BMI 33.0-33.9,adult Steatosis, liver GERD (gastroesophageal reflux disease) Kidney stones Seizures Anxiety Depression Hyperlipidemia Osteoporosis Renal calculi Vitamin D deficiency History of thyroid cancer Hypothyroidism Chronic back pain Insomnia Diarrhea Osteoarthritis Anxiety and depression C. difficile colitis Asthma Hernia Surgical History Hx of colonoscopy History of esophagogastroduodenoscopy (EGD) History of repair of hiatal hernia S/P gastric sleeve procedure H/O LEEP H/O lithotripsy History of hernia surgery H/O adenoidectomy History of tonsillectomy S/P panniculectomy H/O tubal ligation History of appendectomy H/O thyroidectomy Family History Mother Graves disease Social History Household Members: Family Housing: House Do you presently have visiting nurse or other home services: No Patient Tobacco Use Status: Former Tobacco user Cigarettes Per Day: 2 Years Smoked: 10 years service: No Current occupational status: unemployed Female Reproductive History Menstrual Age of Menarche: 14 Physical Exam Vital Signs: Last Vital Signs Pulse 68 03/07/25 14:16 BP 122/82 03/07/25 14:16 Pulse Ox 96 03/07/25 14:16 Oxygen Delivery Method Room Air 03/07/25 14:16 BMI result Body Mass Index 31.1 Assessment & Plan Assessment & Plan (1) Osteoporosis: Code(s): M81.0 - Age-related osteoporosis without current pathological fracture Category: Medical Plan: History of osteoporosis with negative secondary workup. Currently on calcium and vitamin-D supplementation as well as evenity completing course. Urine NTX is suppressed. Recent DEXA showed very large increases in bone density into the mild osteopenic range after receiving several months of Evenity. Received a dos e of Reclast with urine NTX suppressed Plan is to continue calcium and vitamin-D supplementation. We will check follow up DEXA bone density in 1 year's time and have patient returned then 1. Osteoporosis The patient is responding well to Reclast, with improved bone density and low turnover markers. Continue calcium and vitamin D supplementation. Recommend weight-bearing exercises. Plan for a follow-up bone density test in 13 months. The patient had an opportunity to ask questions regarding treatment plan. The patient expressed understanding and agreement with the above treatment plan. Patient was informed and verbally consented to the use of an ambient scribe for clinic note documentation during this visit. Orders: Orders XR DEXA axial skeleton 1 Year M81.0 - Age-related osteoporosis without current pathological fracture Coding Level of Care Code Est Pt Level 3 (93305) Diagnoses Osteoporosis M81.0
--- OUTSIDE RECORDS SUMMARY | 2025-03-07 17:11 | XMS_ITS | Encounter Summary ---
Author Organization [employer] Address [address] [place] [address] Care Team Providers Care Derrick Boat Runner Name Role Phone Name, Rock DE PAZ Primary Care Provider [phone] Reason for Visit * Reason Comments Med Refill Encounter Details Date Type Department Care Team (Late st Contact Info) Description 04/08/2022 Refill [facility] MED & PEDS [address] [place] [address] Yoni Mccormick MD [address] [place], [place] [phone] Social History Tobacco Use Types Packs/Day Years [...] on filedocumented in this encounter Care Teams Derrick Boat Runner Relationship Specialty Start Date End Date Name, MD Rock [address] [place], [place] [phone] PCP - General Family Medicine 07/04/15 documented as of this encounter
--- OUTSIDE RECORDS SUMMARY | 2025-03-07 17:11 | XMS_ITS | Encounter Summary ---
Author Organization [employer] Address [address] [place] [address] Care Team Providers Care Environmental Services Project Manager Name Role Phone Name, Rock DE PAZ Primary Care Provider [phone] Encounter Details Date Type Department Care Team ([facility] st Contact Info) Description 05/06/2022 Orders Only [facility] MEDICINE [address] [place] [address] Karen Falk LPN Social History Tobacco Use [...] on filedocumented in this encounter Care Teams Environmental Services Project Manager Relationship Specialty Start Date End Date Name, MD Rock [address] [place] [address] PCP - General Family Medicine 07/04/15 documented as of this encounter
--- OUTSIDE RECORDS SUMMARY | 2025-03-07 17:11 | XMS_ITS | Encounter Summary ---
Author Organization [employer] Address [address] [place] [address] 7 [place] [address] Care Team Providers Care Change Director Name Role Phone Name, Rock DE PAZ Primary Care Provider [phone] Reason for Visit * Reason Onset Date Comments Medication Question 05/31/2023 Encounter Details Date Type Department Care Team ([facility] st Contact Info) Description 05/31/2023 Telephone [facility] MEDICINE [address] [place], [place] [phone] Name, MD Rock [address] [place] [address] Medication Question Social History Tobacco Use Types [...] a week . pt. Advised to call Financial Assistance Specialist because medication was prescribe by Financial Assistance Specialist. Pt. States clerical supervisor also prescribe blood works before prescribing these medication, but as per pt. PCP is managing kidney related function and low phosphorus so want to discuss about these medication. Pt. Advised that message will be sent to PCP for review. Please review and advise. Tc from pt requesting to speak with provider in regards to two medications that are being offered by the Financial Assistance Specialist which are Pimwall which has to be injected every single day and Levaradi which is once a week . Pt would like to discuss this with PCP or nurse to verify if it's okay and which medication should she go for due to her medical History. Please contact pt @ [phone] * Telephone Encounter - Esperanza Bravo - 05/31/2023 2:02 PM EST Tc from pt requesting to speak with provider in regards to two medications that are being offered by the Financial Assistance Specialist which are Pimwall which has to be injected every single day and Levaradi whichis once a week . Pt would like to discuss this with PCP or nurse to verify if it's okay and which medication should she go for due to her medical History. Please contact pt @ [phone] documented in this encounter Plan of Treatment Not on file documented as of this encounter Visit Diagnoses Not on filedocumented in this encounter Additional Health Concerns Assessment Noted Time PHQ-9 Depression Total Score: 21 023 10:14 AM EDT documented as of this encounter Care Teams Change Director Relationship Specialty Start Date End Date Name, MD Rock [address] [place] [address] PCP - General Family Medicine 07/04/15 documented as of this encounter
--- OUTSIDE RECORDS SUMMARY | 2025-03-07 17:11 | XMS_ITS | Encounter Summary ---
Author Organization [employer] Address [address] [place] [address] 7 [place] [address] Care Team Providers Care Sharepoint Solutions Developer Name Role Phone Name, Rock DE PAZ Primary Care Provider [phone] Encounter Details Date Type Department Care Team ([facility] st Contact Info) Description 04/30/2022 Orders Only [facility] MED & PEDS [address] [place] [address] Cheyenne Sánchez LPN Social History Tobacco Use [...] on file documented as of this encounter Procedures Procedure [...] N Telopetide (NTx) 50 see note H [facility] Comment:Result Units: nM BCE /mM creatPremenopausal Females: 4 - 64 nM BCE/mM creatResults are primarily used for monitoring theresponse to therapy. A value within thepremenopausal range does not rule out osteoporosisnor the need for therapyUnits of Measure: nM BCE/mM creat CREATININE, RANDOM URINE 114 20 - 275 mg/dL [facility] Comment:THIS TEST WAS PERFOR MED AT:[employer]/[id number] [place] [address]CCAQPBWCARMELITA WRIGHT MD,PHD 05/04/2022 3:06 PM EST 05/04/2022 3:22 PM EST us [facility] External Provider LAB URI NE ORDERABLES Final Result [facility] [address] [place] [phone] * Protein Electrophoresis and Edmonson/Lambda Light Chains (05/04/2022 2:30 PM EST) Prot Elec - Total Protein 7.0 6.1 - 8.1 g/dL [facility] Prot Elec - Albumin 4.2 3.8 - 4.8 g/dL [facility] Prot Elec - Alpha1 0.3 0.2 - 0.3 g/dL [facility] Prot Elec - Alpha2 0.8 0.5 - 0.9 g/dL [facility] Prot Elec - Beta 1 0.6 0.4 - 0.6 g/dL [facility] Prot Elec - Beta 2 0.3 0.2 - 0.5 g/dL [facility] Prot Elec - Gamma 0.8 0.8 - 1.7 g/dL [facility] PES - Abn Protein Band 1 TNP [facility] PES-Abn Protein Band 2 TNP [facility] PES-Abn Protein Band 3 TNP [facility] Prot Elec - Interpretation SEE NOTE [facility] Comment:Normal Electrophoret ic PatternTHIS TEST WAS PERFORMED AT:[employer] [address] ([address])[place] [address]KXFRKNANCY ADKINS MD 05/04/2022 2:30 PM EST 05/04/2022 2:33 PM EST [facility] External Provider LAB BLO OD ORDERABLES Final Result [facility] [address] [place] [phone] * Alkaline Phosphatase, Bone Specific (05/04/2022 2:30 PM EST) Alkaline Phosphatase, Bone Specific 11.6 5.6 - 29.0 mcg/L [facility] Comment:Reference Range, Pre menopausal (mcg/L) 35-45 years 5.0-18.2THIS TEST WAS PERFORMED AT:[employer]/[id number] [place] [address]SJIMGWZCARMELITA WRIGHT MD,PHD 05/04/2022 2:30 PM EST 05/04/2022 2:33 PM EST [facility] External Provider LAB BLO OD ORDERABLES Final Result Performing Organization Address [facility] Co de Phone Number [facility] [address] [place] [phone] * Thyroid Peroxidase And Thyroglobulin Antibodies (05/04/2022 2:30 PM EST) Thyroglobulin Antibodies <1 < or = 1 IU/mL [facility] Comment:THIS TEST WAS PERFOR MED AT:[employer] [place] [address] (1[place], [place] [address]CVIDCNANCY ADKINS MD 05/04/2022 2:30 PM EST 05/04/2022 2:33 PM EST [facility] External Provider LAB BLO OD ORDERABLES Final Result Performing Organization Address [facility] de Phone Number [facility] [address] [place] [phone] * (ABNORMAL) Thyroglobulin, LC/MS/MS (05/04/2022 2:30 PM EST) Thyroglobulin, LC/MS/MS <0.1(A) ng/mL [facility] Comment:Reference Range: Int act Thyroid 2.8-40.9 Athyrotic <0.1 Note: Abnormal flagging is based on the reference interval for patients with intact thyroid.This test was performed using the [employer] Coulterchemiluminescent method. Values obtained fromdifferent assay methods cannot be usedinterchangeably. Thyroglobulin levels, regardlessof value, should not be interpreted as absoluteevidence of the presence or absence of disease. Thyroglobulin Comment See Below [facility] Comment:Thyroglobulin antibo dies (TGAB) interfere withthyroglobulin (TG) assays; therefore, TGAB assayshould always be performed in conjunction with aTG assay.For additional information, please refer tohttp://education.[employer]/faq/QUT328(This link is being provided for informational/educational purposes only.)THIS TEST WAS PERFORMED AT:[employer] [place] [address] ([facility])[place] [address]DSAGJMAC ADKINS MD 05/04/2022 2:30 PM EST 05/04/2022 2:33 PM EST [facility] External Provider LAB BLO OD ORDERABLES Final Result Performing Organization Address [facility] Co de Phone Number [facility] [address] [place] [phone] * PTH, Intact Without Calcium (05/04/2022 2:30 PM EST) PTHI 73 16 - 77 pg/mL [facility] Comment:Interpretive Guide I ntact PTH Calcium -------Normal Parathyroid Normal NormalHypoparathyroidism Low or Low Normal LowHyperparathyroidism Primary Normal or High High Secondary High Normal or Low Tertiary High HighNon-Parathyroid Hypercalcemia Low or Low Normal High Calcium (PTHI) 8.9 8.6 - 10.4 mg/dL [facility] Comment:THIS TEST WAS PERFOR MED AT:[facility] [place] [address] ([facility])[place] [address]OIKOHALEJANDRO ADKINS MD 05/04/2022 2:30 PM EST 05/04/2022 2:33 PM EST [facility] External Provider LAB BLO OD ORDERABLES Final Result Performing Organization Address [facility] Co de Phone Number [facility] [address] [place] [address] [phone] * TSH (05/04/2022 2:30 PM EST) Thyroid Stimulating Hormone 3.46 0.32 - 4.0 uIU/mL [facility] Comment:Note: A sustained TS H level above 2.5 uIU/mL may warrant further investigation. TSH 3rd Generation ([facility]) 05/04/2022 2:30 PM EST 05/04/2022 2:33 PM EST [facility] External Provider LAB BLO OD ORDERABLES Final Result Performing Organization Address City/[facility]/ZIP Co de Phone Number [facility] [address] [place] [phone] * T4, Free (05/04/2022 2:30 PM EST) Free T4 (Free Thyroxine) 1.14 0.71 - 1.85 ng/dL [facility] 05/04/2022 2:30 PM EST 05/04/2022 2:33 PM EST [facility] External Provider LAB BLO OD ORDERABLES Final Result Performing Organization Address [facility] de Phone Number [facility] [address] [place] [phone] * Vitamin D, 25-Hydroxy, Total, Immunoassay (05/04/2022 2:30 PM EST) Vitamin D 25-OH Total 25.8 >30 ng/mL [facility] Comment:Health Based Referen ce Values*< 20 ng/mL [id number] ng/mL Insufficient> 30 ng/mL Sufficient*Elver KRUSE. N [...] 2:30 PM EST 05/04/2022 2:33 PM EST [facility] External Provider LAB BLO OD ORDERABLES Final Result Performing Organization Address [facility] Co de Phone Number [facility] [address] [place] [phone] * Phosphate (As Phosphorus) (05/04/2022 2:30 PM EST) Phosphorus 3.0 2.7 - 4.5 mg/dL [facility] 05/04/2022 2:30 PM EST 05/04/2022 2:33 PM EST [facility] External Provider LAB BLO OD ORDERABLES Final Result Performing Organization Address [facility] de Phone Number [facility] [address] [place] [phone] * Comprehensive Metabolic Panel (05/04/2022 2:30 PM EST) Sodium 138 135 - 145 mmol/L [facility] Potassium 4.8 3.3 - 5.1 mmol/L [facility] Chloride 106 96 - 108 mmol/L [facility] Carbon Dioxide 24 22 - 29 mmol/L [facility] Anion Gap 13 12 - 20 [facility] Urea Nitrogen (BUN) 15 9 - 16 mg/dL [facility] Creatinine, Serum 0.85 0.5 - 1.4 mg/dL [facility] Estimated Glomerular Filt Rate >60 [facility] Comment:NOTE: For -Am erican individuals, multiply the result by 1.210.Chronic Kidney Disease: Estimated GFR < 60 mL/min/1.72g2Fuqpby Kidney Disease: Estimated GFR < 15 mL/min/1.73m2 Glucose 90 60 - 115 mg/dL [facility] Calcium 9.0 8.4 - 10.2 mg/dL [facility] Bilirubin, Total 0.3 0.0 - 1.0 mg/dL [facility] Aspartate Amino Transferase 26 5 - 31 U/L [facility] Alanine Aminotransferase 28 0 - 31 U/L [facility] Total Protein 6.8 6.5 - 8.0 g/dL [facility] Albumin Level 4.2 3.5 - 5.0 g/dL [facility] Alkaline Phosphatase 61 39 - 117 U/L [facility] 05/04/2022 2:30 PM EST 05/04/2022 2:33 PM EST us [facility] External Provider LAB BLO OD ORDERABLES Final Result Performing Organization Address City/State/[facility] Co de Phone Number [facility] [address] [place] [phone] [phone] documented in this encounter Visit Diagnoses Not on filedocumented in this encounter Care Teams Sharepoint Solutions Developer Relationship Specialty Start Date End Date Name, MD Rock [address] [place] [phone] PCP - General Family Medicine 07/04/15 documented as of this encounter
--- OUTSIDE RECORDS SUMMARY | 2025-03-07 17:12 | XMS_ITS | Encounter Summary ---
Author Organization [employer] Address [address] [place] [address] [place] [address] Care Team Providers Care Fisher Seal Name Role Phone Name, Rock DE PAZ Primary Care Provider [phone] Reason for Visit * Reason Onset Date Comments Med Refill 04/27/2024 Encounter Details Date Type Department Care Team (Late st Contact Info) Description 04/27/2024 Refill [facility] MEDICINE [address] [place], [place] [phone] Name, MD Rock [address] [place] [address] Chronic pain syndrome Social History Tobacco Use [...] documented as of this encounter Care Teams Fisher Seal Relationship Specialty Start Date End Date Name, MD Rock [address] [place] [address] PCP - General Family Medicine 07/04/15 documented as of this encounter
--- OUTSIDE RECORDS SUMMARY | 2025-03-07 17:12 | XMS_ITS | Encounter Summary ---
Author Organization [email or web address] Address [address] [place] [address] [place] [address] Care Team Providers Care Flame Burner Name Role Phone Name, Rock DE PAZ Primary Care Provider [phone] Reason for Visit * Reason Onset Date Comments Med Refill 02/20/2025 Encounter Details Date Type Department Care Team (Late st Contact Info) Description 02/20/2025 Refill [facility] MEDICINE [address] [place], [place] [phone] Name, MD Rock [address] [place] [address] Insomnia, unspecified type Social History Tobacco Use [...] documented as of this encounter Care Teams Flame Burner Relationship Specialty Start Date End Date Name, MD Rock [address] [place] [address] PCP - General Family Medicine 07/04/15 documented as of this encounter
--- OUTSIDE RECORDS SUMMARY | 2025-03-07 17:12 | XMS_ITS | Encounter Summary ---
Author Organization [employer] Address [address] [place] [address] Care Team Providers Care Animal Control Supervisor Name Role Phone Name, Rock DE PAZ Primary Care Provider [phone] Reason for Visit * Reason Onset Date Comments Med Refill 03/06/2025 Encounter Details Date Type Department Care Team (Late st Contact Info) Description 03/06/2025 Refill [facility] MEDICINE [address] [place], [place] [phone] Name, MD Rock [address] [place] [address] Chronic pain syndrome Social History Tobacco Use [...] of this encounter Care Teams Animal Control Supervisor Relationship Specialty Start Date End Date Name, MD Rock [address] [place] [address] PCP - General Family Medicine 07/04/15 documented as of this encounter
--- OUTSIDE RECORDS SUMMARY | 2025-03-07 17:12 | XMS_ITS | Encounter Summary ---
Author Organization [employer] Address [address] [place] [address] Care Team Providers Care Plant Quality Manager Name Role Phone Name, Rock DE PAZ Primary Care Provider [phone] Reason for Visit * Reason Onset Date Comments Med Refill 06/14/2024 Encounter Details Date Type Department Care Team (Late st Contact Info) Description 06/14/2024 Refill [facility] MEDICINE [address] [place], [place] [phone] Name, MD Rock [address] [place] [address] Chronic pain syndrome Social History Tobacco Use [...] documented as of this encounter Care Teams Plant Quality Manager Relationship Specialty Start Date End Date Name, MD Rock [address] [place] [address] PCP - General Family Medicine 07/04/15 documented as of this encounter
--- OUTSIDE RECORDS SUMMARY | 2025-03-07 17:12 | XMS_ITS | Encounter Summary ---
Author Organization [employer] Address [address] [place] [address] Care Team Providers Care Supervisor Metal Cans Name Role Phone Name, Rock DE PAZ Primary Care Provider [phone] Reason for Visit * Reason Onset Date Comments Med Refill 03/10/2024 Encounter Details Date Type Department Care Team (Late st Contact Info) Description 03/10/2024 Refill [facility] MEDICINE [address] [place], [place] [phone] Name, MD Rock [address] [place] [address] Hypophosphatemia Social History Tobacco Use Types Packs/Day [...] as of this encounter Care Teams Supervisor Metal Cans Relationship Specialty Start Date End Date Name, MD Rock [address] [place] [address] PCP - General Family Medicine 07/04/15 documented as of this encounter
--- OUTSIDE RECORDS SUMMARY | 2025-03-07 17:12 | XMS_ITS | Encounter Summary ---
Author Organization [employer] Address [address] [place] [address] Care Team Providers Care Test Equipment Mechanic Name Role Phone Name, Rock DE PAZ Primary Care Provider [phone] Reason for Visit * Reason Onset Date Comments Med Refill 09/15/2024 Encounter Details Date Type Department Care Team (Late st Contact Info) Description 09/15/2024 Refill [facility] MEDICINE [address] [place], [place] [phone] Name, MD Rock [address] [place] [address] Hypophosphatemia Social History Tobacco Use Types Packs/Day [...] as of this encounter Care Teams Test Equipment Mechanic Relationship Specialty Start Date End Date Name, MD Rock [address] [place] [address] PCP - General Family Medicine 07/04/15 documented as of this encounter
--- OUTSIDE RECORDS SUMMARY | 2025-03-07 17:12 | XMS_ITS | Clinical Summary ---
Author Organization [facility] Address [address] [place] [address] 7 [place] [address] Care Team Providers Care Epic Beacon Analyst Name Role Phone Name, Rock DE PAZ Primary Care Provider [phone] Allergies Active Allergy Reactions Criticality Noted Date [...] not swallow. 1 each 025 2025 Active venlafaxine XR (Effexor XR) 75 MG 24 hr capsuleIndicat ions:Chronic pain syndrome,Insom shital, unspecified type TAKE 1 CAPSULE BY MOUTH ONCE DAILY WITH FOOD. TAKE WITH 150MG DOSE FOR A TOTAL OF 225MG. 90 capsule 1 025 Active busPIRone (Buspar) [...] mouth Once per day. 025 2025 Active OXcarbazepine (Trileptal) 150 MG tabletIndicati ons:Hypophosph atemia Take 1 tablet (150 mg) by mouth 2 times daily. 60 tablet 2 025 Active fluticasone (Flonase) 50 MCG/ACT nasal sprayIndicatio ns:Rhinorrhea SPRAY 2 SPRAYS INTO EACH NOSTRIL EVER DAY. SHAKE GENTLY. BEFORE FIRST USE, PRIME PUMP. AFTER USE, CLEAN TIP AND REPLACE CAP. 16 g 2 025 Active carisoprodol (Soma) 350 MG tabletIndicati ons:Chronic pain syndrome TAKE 1 TABLET BY MOUTH ONCE DAILY IN THE MORNING,AT NOON, IN THE EVENING AND AT BEDTIME FOR MUSCLE SPASM FOR UP TO 23 DAYS 90 tablet 025 Active traMADol (Ultram) 50 MG tabletIndicati ons:Chronic pain syndrome TAKE 1 TABLET BY MOUTH EVERY 8 HOURS NEEDED FOR SEVERE PAIN 84 tablet 025 Active zolpidem (Ambien) 10 MG tabletIndicati ons:Insomnia, unspecified type TAKE 1 TABLET BY MOUTH ONCE DAILY AT BEDTIME NEEDED FOR SLEEP 28 tablet 11/01/2 025 Active EQ All Day Allergy Relief 10 MG tabletIndicati ons:Rhinorrhea TAKE 1 TABLET BY MOUTH ONCE DAILY IN THE MORNING 90 tablet 1 Active ezetimibe (Zetia) 10 MG tabletIndicati ons:High cholesterol,St atin intolerance TAKE 1 TABLET BY MOUTH EVERY DAY 90 tablet 1 Active ezetimibe (Zetia) 10 MG tabletIndicati ons:High cholesterol,St atin intolerance TAKE 1 TABLET BY MOUTH EVERY DAY 90 tablet 1 025 2024 Discontinued(R eorder (will not trigger notification to Pharmacy)) loratadine (Claritin) 10 MG tabletIndicati ons:Rhinorrhea TAKE 1 TABLET BY MOUTH EVERY MORNING 90 tablet 1 025 2024 Discontinued OXcarbazepine (Trileptal) 150 MG tabletIndicati ons:Hypophosph atemia Take 1 tablet by mouth twice daily 60 tablet 2 2024 Discontinued(R eorder (will not trigger notification to Pharmacy)) fluticasone (Flonase) 50 MCG/ACT nasal sprayIndicatio ns:Rhinorrhea SPRAY 2 SPRAYS INTO EACH NOSTRIL EVER DAY. SHAKE GENTLY. BEFORE FIRST USE, PRIME PUMP. AFTER USE, CLEAN TIP AND REPLACE CAP. 16 g 2 2024 Discontinued(R eorder (will not trigger notification to Pharmacy)) carisoprodol (Soma) 350 MG tabletIndicati ons:Chronic pain syndrome TAKE 1 TABLET BY MOUTH ONCE DAILY IN THE MORNING,AT NOON, IN THE EVENING AND AT BEDTIME FOR MUSCLE SPASM FOR UP TO 23 DAYS 90 tablet 2024 Discontinued(R eorder (will not trigger notification to Pharmacy)) traMADol (Ultram) 50 MG tabletIndicati ons:Chronic pain syndrome Take 1 tablet (50 mg) by mouth every 8 (eight) hours if needed for severe pain for up to 28 days. 84 tablet 025 2024 Discontinued zolpidem (Ambien) 10 MG tabletIndicati ons:Insomnia, unspecified type TAKE 1 TABLET BY MOUTH ONCE DAILY AT BEDTIME NEEDED FOR SLEEP 28 tablet 025 2024 Discontinued Active Problems Problem Noted Date Diagnosed Date [...] Encounters Date Type Department Care Team Description 03/06/2025 Refill [facility] [address] [place] [address] NameRock MD High cholesterol; Statin intolerance 03/06/2025 Refill [facility] [address], [place] [phone] NameRock MD Chronic pain syndrome 03/04/2025 Refill [facility] [address] [place], [place] [phone] Rock Rodrigues MD Rhinorrhea 02/20/2025 Refill [facility] [address] [place] [address] Name, MD Rock Chronic pain syndrome; Insomnia, unspecified type 02/20/2025 Refill [facility] [address] [facility] [place] [address] NameRock MD Insomnia, unspecified type 02/12/2025 Refill [facility] [address] [facility] [place] [address] Rock Rodrigues MD Hypophosphatemia; Rhinorrhea; Chronic pain syndrome 02/07/2025 Orders Only [facility] GOMEZ Agustin [phone] Rock Rodrigues MD 02/01/2025 Telephone [facility] [address] [facility] [place] [address] NameRock MD Nutrition Appointment 01/23/2025 Refill [facility] [address] [facility] [place] [address] Rock Rodrigues MD 01/23/2025 Refill [facility] Aguilary[facility]Z ferrer [phone] Rock Rodrigues MD Insomnia, unspecified type 01/17/2025 Refill [facility] [address] [facility] [place] [phone] Rock Rodrigues MD Chronic pain syndrome 01/17/2025 Refill [facility] ferrer [phone] Rock Rodrigues MD Rhinorrhea; Chronic pain syndrome 01/04/2025 Results Follow-Up [facility] [phone] Rock Rodrigues MD CBC auto differential, Comprehensive Metabolic Panel, PTH, Intact Without Calcium, Additional followed-up results: 5 2025 2:30 PM EDT Office Visit [facility] [place] [address] Rock Rodrigues MD Hypertension, unspecified type (Primary Dx); Class 1 drug-induced obesity with serious comorbidity and body mass index (BMI) of 30.0 to 30.9 in adult; Primary osteoarthritis of both knees; History of repair of hiatal hernia 2025 Travel 2025 Orders Only [facility] [place] [address] Rock Rodrigues MD 12/29/2024 Refill [facility] [address] [facility] [place] [address] Rock Rodrigues MD Insomnia, unspecified type; Chronic pain syndrome; Hypophosphatemia 12/29/2024 Telephone [facility] [address] [facility] [place] [address] Rock Rodrigues MD Chart Prep 12/25/2024 Travel 12/18/2024 Refill [facility] [address] [place] [address] Shavon Fletcher MD Insomnia, unspecified type 12/15/2024 Refill [facility] [address] [place] [address] Rock Rodrigues MD Hypophosphatemia 12/12/2024 1:00 PM EDT Clinical Support [facility] [address] [place], [place] [address]mckayla [place] [address] Corrie Chen RN Long-term current use of opiate analgesic (Primary Dx) 12/12/2024 Refill [facility] [address] [facility] [place] [address] Corrie Chen RN Chronic pain syndrome 12/12/2024 Travel 12/07/2024 Refill [facility] [address] [place] [address] Rock Rodrigues MD Chronic pain syndrome 12/05/2024 2:00 PM EDT Office Visit [address] [address] Fany Pearson MD Chronic low back pain, unspecified back pain laterality, unspecified whether sciatica present (Primary Dx); Primary osteoarthritis of both knees 12/05/2024 Travel from Last 3 Months Immunizations Immunization Administration Dates Next Due INFLUENZA VACCINE QUADRIVALE NT RECOMBINANT PRESERVATIVE FREE RIV4 01/20/2020,02/09/2019 Influenza injectable quadriv alent preservative free 02/15/2023,01/07/2022,02/17/2021,01/15,01/28/2017,01/22/2016 Influenza, IIV3, injectable 01/07/2015,1 ,02/16/2013,01/10,01/24/2009 Influenza, Recombinant, inje ctable, preservative free 02/01/2024 Novel [id number], preservative-free 04/03/2009 Pfizer Covid-19 Vaccine 12+ 03/29/2023 [...] 2025 2:33 PM EDT Plan of Treatment Health Maintenance Due Date Last Done Comments CT Colonography 1960 FIT DNA/Cologuard 1960 FIT 1960 FOBT 1960 Sigmoidoscopy 1960 Hepatitis A Vaccines (1 of 2 - Risk 2-dose series) 01/02/1980 Depression Monitoring 11/14/2024 05/17/2024, 025 COVID-19 Vaccine ( season) 2024 02/01/2024, 03/29/2023, 01/19/2022, Additional history exists Influenza Vaccine (#1) 2024 , 02/15/2023, 01/07/2022, Additional history exists SDOH Screening 05/17/2025 05/17/2024 Disability Screening 09/06/2025 09/06/2024 DTaP/Tdap/Td Vaccines (3 - Td or Tdap) 09/24/2025 09/25/2015, 10/02/2008 Alcohol/Substance Use Screening 2026 2025 Tobacco Screening 2026 2025 Cervical Cancer Screening 01/07/2027 HPV/Cotest 01/07/2027 01/07/2022 Pap Smear 01/07/2027 01/07/2022 Mammogram 02/07/2027 02/07/2025, 01/24, 01/20/2022, Additional history exists Lipid Panel 12/06/2028 12/07/2023, 0608/2023, 06/29/2022, Additional history exists Colonoscopy 11/21/2033 11/22/2023, 08/21/2014 Colorectal Cancer Screening 11/21/2033 Zoster Vaccines Completed 05/23/2019, 02/09/2019 HIV Screening Completed 02/17/2021 Hepatitis C Screening Completed 12/23/2021, 021 Pneumococcal Vaccine: 50+ Years Completed 02/15/2023, 08/15/2013 RSV Patients and Patients Aged 60 years or older Completed 03/30/2023, 03/30/2023 HIB Vaccines Aged Out No longer eligi [...] Procedure Name Priority Date/Time Associated Diagnosis Comments BI MAMMOGRAM SCREENING TOMOSYNTHESIS BILATERAL Routine 02/07/2025 2:02 PM EDT AMB REFERRAL TO ORTHOPAEDIC SURGERY Routine 01/25/2025 [...] EDT Long-term current use of opiate analgesic LIPID PANEL, STANDARD Routine 12/07/2023 11:55 AM [...] Recently Relevant to Health Maintenance Results * BI Mammogram Screening Tomosynthesis Bilateral (02/07/2025 2:02 PM EDT) Anatomical Region Laterality Modality Breast Bilateral Mammography 02/07/2025 2:02 PM EDT Narrative 02/11/2025 7:40 AM EDT [facility] [address] [place] [address] Mammography Report Signed Patient: Coleen Tyler MR#: [id number] : 1960 Acct:[id number] Age/Sex: 65 / F ADM Date: 02/07/25 Loc: [place] Attending Dr: Rock Rodrigues MD Ordering Physician: Rock Rodrigues MD Results: 1Negative Date of Service: 02/07/25 Follow Up: 1 Year From Orig inal Mammogram Procedure(s): MM tomosynthesis screening BI Accession Number(s): [id number] cc: Rock Rodrigues MD Reason For Exam: SCREENING EXAMINATION: MM SCREENING DIGITAL BREAST TOMOSYNTHESIS, BILATERAL CLINICAL INFORMATION: Screening. Asymptomatic. COMPARISON: Comparison made to multiple prior, most recent February 04, 2024, and most remote March 27, 2016. TECHNIQUE: Digital breast tomosynthesis is performed in mediolateral oblique and craniocaudal views along with computer-aided detection (CAD). Synthesized 2D images are generated from the tomosynthesis. FINDINGS: BREAST COMPOSITION: There are scattered areas of fibroglandular density. BILATERAL BREASTS: No significant masses, suspicious calcifications or other abnormalities are seen in either breast. MM/MM tomosynthesis screening BI IMPRESSION: BILATERAL BREASTS: Negative, no mammographic evidence of malignancy. Normal interval follow-up is recommended in 12 months. ASSESSMENT: BI-RADS: Category 1: Negative RECOMMENDATION: Routine annual mammography screening. FOLLOW-UP: 1 year F/U This examination should not preclude the clinical evaluation of a suspicious palpable abnormality. This patient's information was entered into a reminder system with a target due date for their next mammogram. Electronically signed by: Cassy Rendon MD 02/11/2025 07:38 AM EDT Dictated By: Cassy Rendon MD Signed By: <Electronically signed by Cassy Rendon MD in OV> 02/11/25 0738 DD/ 1402 TD/TT: 02/07/25 1414 [employer]: Procedure Note Donotuseinterpreter, Image - 02/11/20[facility] [address] [place] [address] Mammography Report Signed Patient: JaysonDianaMR#: [id number] : 1960cct:[id number] Age/Sex: 65 / FADM Date: 02/07/25 Loc: [place] Attending Dr: Rock Rodrigues MD Ordering Physician: Rock Rodriguesesults: 1Negative Date of Service: 02/07/25Follow Up: 1 Year From Orig inal Mammogram Procedure(s): MM tomosynthesis screening BI Accession Number(s): [id number] cc: Rock Rodrigues MD Reason For Exam: SCREENING EXAMINATION: MM SCREENING DIGITAL BREAST TOMOSYNTHESIS, BILATERAL CLINICAL INFORMATION: Screening. Asymptomatic. COMPARISON: Comparison made to multiple prior, most recent February 04, 2024, and most remote March 27, 2016. TECHNIQUE: Digital breast tomosynthesis is performed in mediolateral oblique and craniocaudal views along with computer-aided detection (CAD). Synthesized 2D images are generated from the tomosynthesis. FINDINGS: BREAST COMPOSITION: There are scattered areas of fibroglandular density. BILATERAL BREASTS: No significant masses, suspicious calcifications or other abnormalities are seen in either breast. MM/MM tomosynthesis screening BI IMPRESSION: BILATERAL BREASTS: Negative, no mammographic evidence of malignancy. Normal interval follow-up is recommended in 12 months. ASSESSMENT: BI-RADS: Category 1: Negative RECOMMENDATION: Routine annual mammography screening. FOLLOW-UP: 1 year F/U This examination should not preclude the clinical evaluation of a suspicious palpable abnormality. This patient's information was entered into a reminder system with a target due date for their next mammogram. Electronically signed by: Cassy Rendon MD 02/11/2025 07:38 AM EDT Dictated By: Cassy Rendon MD Signed By: <Electronically signed by Cassy Rendon MD in OV> 02/11/25 0738 DD/ 1402 TD/TT: 02/07/25 1414 [employer]: us Rock Rdorigues MD IMG BI PROCEDURES Edited Result - Final * Referral to Orthopaedic Surgery (01/25/2025) us Rock Rodrigues MD OUTPATIENT REFERRAL ORDERABLES F inal Result * FL Upper GI w/air w/Barium Swallow (01/15/2025 7:59 AM EDT) Anatomical Region Laterality Modality Body Radiographic Fe ging 01/15/2025 7:59 AM EDT Narrative 01/15/2025 8:50 AM EDT [address] [address] Fluoroscopy Report Signed Patient: Coleen Tyler MR#: [id number] : 1960 Acct:[id number] Age/Sex: 65 / F ADM Date: 01/15/25 Loc: [facility] Attending Dr: Lisa Salas [facility] Ordering Physician: Lisa Salas [facility] Date of Service: 01/15/25 Procedure(s): FL upper GI w air w Ba Swallow Accession Number(s): [id number] cc: Name,Rock DE PAZ; Lisa Salas [facility] Reason for Exam: K21.9 - Gastro-esophageal reflux [...] Warner Chase MD 01/15/2025 08:47 AM EDT Dictated By: Warner Chase MD Signed By: <Electronically signed by Warner Chase MD in OV> 01/15/25 0847 DD/ 0759 TD/TT: 01/15/25 0827 Director [employer]: JADA Procedure Note Donotuseinterpreter, Image - 01/15/2025 [place] [address] Fluoroscopy Report Signed Patient: Ne TylernaMR#: [id number] : 1960cct:[id number] Age/Sex: 65 / FADM Date: 01/15/25 Loc: [place] Attending Dr: Lisa Salas [facility]- Ordering Physician: Lisa Salas [employer]AYLA Date of Service: 01/15/25 Procedure(s): FL upper GI w air w Ba Swallow Accession Number(s): [id number] cc: Name,Rock DE PAZ; Lisa Salas [facility] Reason for Exam: K21.9 - Gastro-esophageal reflux [...] OV> 01/15/25 0847 DD/ 0759 TD/TT: 01/15/25 0827 Director [employer] Nursing: JADA [facility] Exter nal Provider IMG FLUOROSCOPY PROCEDURES Edited Result - Final * Vitamin B1 (01/11/2025 12:57 PM EDT) Vitamin B1 16 8 - 30 nmol/L [facility] Comment:Vitamin supplementat ion within 24 hours prior toblood draw may affect the accuracy of the results.This test was developed and its analytical performancecharacteristics have been determined by [employer] [place], [place]. It hasnot been cleared or approved by the U.S. Food and DrugAdministration. This assay has been validated pursuantto the CLIA regulations and is used for clinicalpurposes.THIS TEST WAS PERFORMED AT:[employer] [place] [address]KWOIUCHCARMELITA WRIGHT MD,PHD Blood Venous blood specimen / Unknown 01/11/2025 12:57 PM EDT 01/11/2025 12:57 PM EDT Rock Rodrigues MD LAB BLOOD ORDERABLES Final Resul t [facility] [address] [place] [phone] * Hold Lavender - Possible Hematology (2025 12:39 PM EDT) Hold Lavender - Possible Hematololgy SEE NOTE [facility] Comment:Specimen will be hel d untested for 8 hours. Call Hematologyif testing is desired. 2025 12:3 9 PM EDT 2025 2:09 PM EDT us Rock Rodrigues MD HISTORICAL/NON ORDERABLE LABS Fi nal Result [facility] [address] [place] [address] [phone] * Vitamin D, 25-Hydroxy, Total, Immunoassay (2025 12:39 PM EDT) Vitamin D 25-OH Total 45.0 >30 ng/mL [facility] Comment: Health Based Reference Values*< 20 ng/mL Wbunpkati21-53 ng/mL Insufficient> 30 ng/mL Sufficient*Elver KRUSE. N [...] ORDERABLES Final Resul t Performing Organization Address [facility] Co de Phone Number [facility] [address] [place] [phone] * Vitamin B12/Folate, Serum Panel (2025 12:39 PM EDT) Pathologist [facility] Vitamin B12 439 200 - 900 pg/mL [facility] Comment:NORMAL 200-900 PG/ML INDETERMINATE 160-199 PG/ML DEFICIENT < 160 PG/ML Folate 9.2 > or = 4.0 ng/mL [facility] Comment:Reference Values:> o r = 4.0 ng/mL< 4.0 ng/mL suggests folate deficiency Methotrexate, aminopterin and folinic acid(leucovorin) are chemotherapeutic agents whose molecularstructures are similar to folate; therefore, the Architectfolate assay cannot be used for patients using these drugs. Blood Venous blood specimen / Unknown 2025 12:39 PM EDT 2025 12:39 PM EDT oRck Rodrigues MD LAB BLOOD ORDERABLES Final Resul t Performing Organization Address [facility] Co de Phone Number [facility] [address] [place] [phone] * (ABNORMAL) CBC auto differential (2025 12:39 PM EDT) Pathologist [facility] White Blood Count 5.6 4.8 - 10.8 X10*3/uL [facility] Red Blood Count 4.43 4.20 - 5.50 X10*6/uL [facility] Hemoglobin 13.7 12.0 - 16.0 g/dl [facility] Hematocrit 40.2 37.0 - 47.0 % [facility] Mean Corpuscular Volume 90.7 80.0 - 98.0 fL [facility] Mean Corpuscular Hemoglobin 30.9 27.0 - 33.0 pg [facility] Mean Corpuscular HGB Conc 34.1 31.0 - 35.0 g/dl [facility] Red Cell Distribution Width 12.2 11.0 - 16.0 % [facility] Platelet Count 270 160 - 400 X10*3/uL [facility] Mean Platelet Volume 12.4(H) 9.4 - 12.3 fL [facility] Neutrophils Percent Auto 48.6 45 - 73 % [facility] Imm Gran Pct Auto 0.4 0.0 - 0.4 % [facility] Lymphocytes Percent Auto 42.6(H) 20 - 40 % [facility] Monocytes Percent Auto 5.9 2 - 11 % [facility] Eosinophils Percent Auto 1.6 0 - 4 % [facility] Basophils Percent Auto 0.9 0 - 2 % [facility] NRBC Pct Auto 0.0 0.0 - 0.2 /100WBC [facility] Neutrophils Absolute Auto 2.8 2.0 - 8.3 x10*3/uL [facility] Imm Gran Abs Auto 0.02 0.00 - 0.03 X10*3/uL [facility] Lymphocytes Absolute Auto 2.4 1.2 - 4.9 X10*3/uL [facility] Monocytes Absolute Auto 0.3 0.1 - 1.2 X10*3/uL [facility] Eosinophils Absolute Auto 0.1 0.0 - 0.4 X10*3/uL [facility] Basophils Absolute Auto 0.1 0.0 - 0.2 X10*3/uL [facility] NRBC Abs Auto 0.000 0.0 - 0.012 X10*3/uL [facility] Blood Venous blood specimen / Unknown 2025 12:39 PM EDT 2025 12:39 PM EDT us Rock Rodrigues MD LAB BLOOD ORDERABLES Final Resul t [facility] [address], [place] [phone] * (ABNORMAL) Iron And Total Iron Binding Capacity (2025 12:39 PM EDT) Iron 213(H) 30 - 160 mcg/dL [facility] Total Iron Binding Capacity 394 228 - 428 mcg/dL [facility] Percent Iron Saturation 54(H) 15 - 50 % [facility] Unsaturated Iron Binding 181 ug/dL [facility] Blood Venous blood specimen / Unknown 2025 12:39 PM EDT 2025 12:39 PM EDT us Rock Rodrigues MD LAB BLOOD ORDERABLES Final Resul t Performing Organization Address [facility]/ZIP Co de Phone Number [facility] [address] [place] [phone] * Hepatitis A Antibody, Total (2025 12:39 PM EDT) Hepatitis A Antibody IgG Nonreactive Nonreactive [facility] Blood Venous blood specimen / Unknown 2025 12:39 PM EDT 2025 12:39 PM EDT us Rock Rodrigues MD LAB BLOOD ORDERABLES Final Resul t Performing Organization Address [facility] de Phone Number [facility] [address] [place] [phone] * Zinc (2025 12:39 PM EDT) Zinc 69 60 - 130 mcg/dL [facility] Comment:This test was develo ped and its analytical performancecharacteristics have been determined by [employer] [place], [place]. It hasnot been cleared or approved by the U.S. Food and DrugAdministration. This assay has been validated pursuantto the CLIA regulations and is used for clinicalpurposes.THIS TEST WAS PERFORMED AT:[employer] [place] [address]OGHTVTNCARMELITA WRIGHT MD,PHD Blood Venous blood specimen / Unknown 2025 12:39 PM EDT 2025 12:39 PM EDT Rock Rodrigues MD LAB BLOOD ORDERABLES Final Resul t Performing Organization Address [facility]/ZIP Co de Phone Number [facility] [address] [place] [phone] * TSH (2025 12:39 PM EDT) Thyroid Stimulating Hormone 1.72 0.32 - 4.0 uIU/mL [facility] Comment:TSH 3rd Generation ( [facility]) 2025 12:3 9 PM EDT 2025 12:39 PM EDT Generic External Data Provider LAB BLOOD ORDERAB LES Final Result Performing Organization Address [facility]/ZIP Co de Phone Number [facility] [address] [place] [phone] * T4, Free (2025 12:39 PM EDT) Free T4 (Free Thyroxine) 1.05 0.71 - 1.85 ng/dL [facility] 2025 12:3 9 PM EDT 2025 12:39 PM EDT us Generic External Data Provider LAB BLOOD ORDERAB LES Final Result Performing Organization Address [facility] Co de Phone Number [facility] [address] [place] [phone] * PTH, Intact Without Calcium (2025 12:39 PM EDT) Parathyroid Hormone, Intact 58.8 8.7 - 77.1 pg/mL [facility] Blood Venous blood specimen / Unknown 2025 12:39 PM EDT 2025 12:39 PM EDT us Rock Rodrigues MD LAB BLOOD ORDERABLES Final Resul t Performing Organization Address City/[facility]/ZIP Co de Phone Number [facility] [address] [place] [phone] * Ferritin (2025 12:39 PM EDT) Ferritin 17 10 - 250 ng/mL [facility] Blood Venous blood specimen / Unknown 2025 12:39 PM EDT 2025 12:39 PM EDT us Rock Rodrigues MD LAB BLOOD ORDERABLES Final Resul t Performing Organization Address [facility] Co de Phone Number [facility] [address] [place] [phone] * Comprehensive Metabolic Panel (2025 12:39 PM EDT) Sodium 142 135 - 145 mmol/L [facility] Potassium 4.9 3.3 - 5.1 mmol/L [facility] Chloride 108 96 - 108 mmol/L [facility] Carbon Dioxide 25 22 - 29 mmol/L [facility] Anion Gap 14 12 - 20 [facility] Urea Nitrogen (BUN) 13 9 - 16 mg/dL [facility] Creatinine, Serum 0.67 0.5 - 1.4 mg/dL [facility] Estimated Glomerular Filt Rate >60 [facility] Comment:Chronic Kidney Disea se: Estimated GFR < 60 mL/min/[id number] Kidney Disease: Estimated GFR < 15 mL/min/1.73m2 Glucose 81 60 - 115 mg/dL [facility] Calcium 9.1 8.4 - 10.2 mg/dL [facility] Bilirubin, Total 0.3 0.0 - 1.0 mg/dL [facility] Aspartate Amino Transferase 24 5 - 31 U/L [facility] Alanine Aminotransferase 23 0 - 31 U/L [facility] Total Protein 7.2 6.5 - 8.0 g/dL [facility] Albumin Level 4.4 3.5 - 5.0 g/dL [facility] Alkaline Phosphatase 51 39 - 117 U/L [facility] Blood Venous blood specimen / Unknown 2025 12:39 PM EDT 2025 12:39 PM EDT us Rock Rodrigues MD LAB BLOOD ORDERABLES Final Resul t Performing Organization Address [facility] Co de Phone Number [facility] [address] [place] [address] [phone] * Collagen Cross-Linked N-Telopeptide (NTx), U (2025 10:15 AM EDT) [facility] N Telopetide (NTx) 10 see note H [facility] Comment:Result Units: nM BCE /mM creatPremenopausal Females: 4 - 64 nM BCE/mM creatResults are primarily used for monitoring theresponse to therapy. A value within thepremenopausal range does not rule out osteoporosisnor the need for therapyUnits of Measure: nM BCE/mM creat CREATININE, RANDOM URINE 46 20 - 275 mg/dL [facility] Comment:THIS TEST WAS PERFOR MED AT:[employer] [place] [address]XPZYPRGCARMELITA WRIGHT MD,PHD 2025 10:1 5 AM EDT 2025 12:45 PM EDT us Generic External Data Provider LAB URINE ORDERAB LES Final Result Performing Organization Address [facility]/ZIP Co de Phone Number [facility] [address] [place] [address] [phone] * (ABNORMAL) POCT PAULETTE-14 Urine Drug Screen (12/12/2024 1:21 PM EDT) Pathologist [facility] Positive Negative Cocaine Screen, Urine Negative [...] - 12/12/2024 1:21 PM EDT UTOX cup Lot#[id number] Exp. 01/30/26 Internal Pass Control us Rock Rodrigues MD POINT OF CARE TEST ENTER/EDIT OR DERABLES Final Result * Phencyclidine Screen, Urine (12/12/2024 12:00 AM EDT) [facility] Phencyclidine Screen Urine Not Detected Not Detect [facility] Comment:Phencyclidine cut-of f is 25 ng/mL.Positive results are unconfirmed and should not be used fornon-medical purposes. Urine 12/12/2024 12/12/2024 us Rock Rodrigues MD LAB URINE ORDERABLES Final Resul t [facility] [address] [place] [phone] * Drug Monitoring, Methadone Metabolite, Screen, Urine (12/12/2024 12:00 AM EDT) [facility] Methadone Screen, Urine Not Detected Not Detect ng/mL [facility] Comment:Methadone cut-off is 300 ng/mL.Positive results are unconfirmed and should not be used fornon-medical purposes. Urine 12/12/2024 12/12/2024 Result [facility] us Rock Rodrigues MD LAB URINE ORDERABLES Final Resul t Performing Organization Address [facility] Co de Phone Number [facility] [address] [place] [address] [phone] * (ABNORMAL) Lipid Panel, Standard (12/07/2023 11:55 AM EDT) Triglycerides 236(H) <150 mg/dL [facility] Comment:Desirable Triglyceri de: less than 150 mg/dLBorderline High Triglyceride 150-199 mg/dLHigh Triglyceride: 200-499 mg/dLVery High Triglyceride: greater than or equal to 5OO mg/dL Cholesterol 300(H) <200 mg/dL [facility] Comment:Desirable Cholestero l: less than 200 mg/dLBorderline High Cholesterol: 200-239 mg/dLHigh Cholesterol: greater than 239 mg/dL LDL Cholesterol Calculated 214(H) <100 mg/dL [facility] Comment:Desirable LDL: less than 100 mg/dLNear Optimal/Above Optimal LDL: 110- 129 mg/dLBorderline High LDL: 130-159 mg/dLHigh LDL: 160-189 mg/dLVery High LDL: greater than or equal to 190 mg/dL HDL Cholesterol 39(L) >40 mg/dL [facility] Comment:Desirable HDL: great er than 40 mg/dL Note: This HDL assay may give artificially low results in patients with liver disease. 12/07/2023 11:5 5 AM EDT 12/07/2023 11:55 AM EDT Generic External Data Provider LAB BLOOD ORDERAB LES Final Result Performing Organization Address City/[facility]/ZIP Co de Phone Number [facility] [address] [place] [address] [phone] * Hm Colonoscopy (11/22/2023) Colonoscopy Normal [...] computer assisted technology. [facility] White Mixing Operator: SEE COMMENT [facility] Comment: MAA CT(ASCP) CT screening location: [place] [address] HPV nRNA E6/E7 Not Detected Not Detected [facility] Comment: Methodology: Rand Butting Machine Operator-Mediated Amplification This assay detects E6/E7 viral messenger RNA (mRNA) from 14 high-risk HPV types (16,18,31,33,35,39,45,51,52,56,58,59,66,68). Cervical sources are required for HPV testing. If a vaginal source from a patient who has had a total hysterectomy with removal of cervix was submitted, please contact the testing laboratory for alternative testing options. For additional information, please refer to http://education.Jamba!/faq/GAH158g9 (This link if provided for information/ educational purposes only.) Interpretation/Res ult: SEE COMMENT [facility] Comment: Negative for intraepithelial lesion [...] Final Result [facility] [address] [place] [address], * HEPATITIS C AB W/REFL TO HCV RNA, QN, PCR (12/23/2021 2:35 PM EDT) HEPATITIS C ANTIBODY NON-REACT MARK NON-REACT MARK [facility] INDEX 0.12 <1.00 [facility] Comment: HCV antibody was non-reactive. There is no laboratory evidence of HCV infection. In most cases, no further action is required. However, if recent HCV exposure is suspected, a test for HCV RNA (test code 95313) is suggested. For additional information please refer to http://DataNitro.Jamba!/faq/UDO88c2 (This link is being provided for informational/ educational purposes only.) 12/23/2021 2:35 PM EDT us Rock Rodrigues MD HISTORICAL/NON ORDERABLE LABS Fi nal Result Performing Organization Address [facility] de Phone Number [facility] [address] * HIV 1/2 ANTIGEN/ANTIBODY,FOURTH GENERATION W/RFL [...] purpose. For additional information please refer to http://DataNitro.Jamba!/faq/BOB424 (This link is being provided for informational/ educational purposes only.) The performance of this assay has not been clinically validated in patients less than 2 years old. 02/17/2021 3:50 PM EDT us Rock Rodrigues MD LAB BLOOD ORDERABLES Final Resul t Performing Organization Address [facility]/ZIP Co de Phone Number [facility] [address] from Last 3 Months or Most Recently Relevant to Health Maintenance Insurance [place] [phone] [facility] [employer] MEDICARE REPLACEMENT Care Teams Epic Beacon Analyst Relationship Specialty Start Date End Date Name, MD Rock [address] [place] [address] PCP - General Family Medicine 07/04/15
--- OUTSIDE RECORDS SUMMARY | 2025-03-07 17:12 | XMS_ITS | Encounter Summary ---
Author Organization [employer] Address [address] [place] [address] 7 [place] [address] Care Team Providers Care Fiber Optics Engineer Name Role Phone Name, Rock DE PAZ Primary Care Provider Encounter Details Date Type Department Care Team (Late st Contact Info) Description 11/24/2023 Abstract [facility] MEDICINE [address] [place], [place] [phone] Name, MD Rock [address] [place] [address] Social History Tobacco Use Types Packs/Day Years [...] Results * Colonoscopy (11/22/2023) Colonoscopy Normal Normal us Rock Rodrigues MD HEALTH MAINTENANCE Final Result documented in this encounter Visit Diagnoses Not on filedocumented in this encounter Additional Health Concerns Assessment Noted Time PHQ-9 Depression Total Score: 12 024 2:16 PM EDT documented as of this encounter Care Teams Fiber Optics Engineer Relationship Specialty Start Date End Date Name, MD Rock [address] [place] [address] PCP - General Family Medicine 07/04/15 documented as of this encounter
--- OUTSIDE RECORDS SUMMARY | 2025-03-07 17:12 | XMS_ITS | Encounter Summary ---
Author Organization [employer] Address [address] [place] [address] [place] [address] Care Team Providers Care Linen Clerk Name Role Phone Name, Rock DE PAZ Primary Care Provider [phone] Reason for Visit * Reason Onset Date Comments Med Refill 03/03/2024 Encounter Details Date Type Department Care Team (Late st Contact Info) Description 03/03/2024 Refill [facility] MEDICINE [address] [place], [place] [phone] Name, MD Rock [address] [place] [address] Chronic pain syndrome Social History Tobacco Use [...] documented as of this encounter Care Teams Linen Clerk Relationship Specialty Start Date End Date Name, MD Rock [address] [place] [address] PCP - General Family Medicine 07/04/15 documented as of this encounter
--- OUTSIDE RECORDS SUMMARY | 2025-03-07 17:12 | XMS_ITS | Encounter Summary ---
Author Organization [employer] Address [address] [place] [address] 7 [place] [address] Care Team Providers Care Elevator Constructor Name Role Phone Name, Rock DE PAZ Primary Care Provider [phone] Reason for Visit * Reason Comments Med Refill Encounter Details Date Type Department Care Team ([facility] st Contact Info) Description 04/26/2023 Refill [facility] [address] [place], [place] [phone] Name, MD Rock [address] [place] [address] Insomnia, unspecified type Social History Tobacco Use [...] as of this encounter Care Teams Elevator Constructor Relationship Specialty Start Date End Date Name, MD Rock [address] [place] [address] PCP - General Family Medicine 07/04/15 documented as of this encounter
--- OUTSIDE RECORDS SUMMARY | 2025-03-07 17:12 | XMS_ITS | Encounter Summary ---
Author Organization [employer] Address [address] [place] [address] 7 [place] [address] Care Team Providers Care Family Educator Name Role Phone Name, Rock DE PAZ Primary Care Provider [phone] Reason for Visit * Reason Comments Med Refill Encounter Details Date Type Department Care Team (Late st Contact Info) Description 03/04/2023 Refill [facility] MEDICINE [address] [place] [address] Christine Doe FNP Social History Tobacco Use [...] as of this encounter Care Teams Family Educator Relationship Specialty Start Date End Date Name, MD Rock [address] [place] [address] PCP - General Family Medicine 07/04/15 documented as of this encounter
--- OUTSIDE RECORDS SUMMARY | 2025-03-07 17:12 | XMS_ITS | Encounter Summary ---
Author Organization [employer] Address [address] [place] [address] [place] [address] Care Team Providers Care Cow Tester Name Role Phone Name, Rock DE PAZ Primary Care Provider [phone] Reason for Visit * Reason Comments Med Refill Encounter Details Date Type Department Care Team ([facility] st Contact Info) Description 09/15/2024 Refill [facility] MEDICINE [address] [place], [place] [phone] Name, MD Rock [address] [place] [address] Hypophosphatemia Social History Tobacco Use Types Packs/Day [...] documented as of this encounter Care Teams Cow Tester Relationship Specialty Start Date End Date Name, MD Rock [address] [place] [address] PCP - General Family Medicine 07/04/15 documented as of this encounter
--- OUTSIDE RECORDS SUMMARY | 2025-03-07 17:12 | XMS_ITS | Encounter Summary ---
Author Organization [employer] Address [address] [place] [address] Care Team Providers Care Plastic Surgery Assistant Name Role Phone NameRock MD Primary Care Provider [phone] Reason for Visit * Reason Comments Med Refill Encounter Details Date Type Department Care Team ([facility] st Contact Info) Description 09/16/2022 Refill [facility] MEDICINE [address] [place] [address] NameRock MD [address] [place] [address] Chronic pain syndrome Social History Tobacco Use [...] syndrome documented in this encounter Care Teams Plastic Surgery Assistant Relationship Specialty Start Date End Date NameRock MD [address] [place] [address] PCP - General Family Medicine 07/04/15 documented as of this encounter
--- OUTSIDE RECORDS SUMMARY | 2025-03-07 17:12 | XMS_ITS | Encounter Summary ---
Author Organization [employer] Address [address] [place] [address] 7 [place] [address] Care Team Providers Care Coin Purse Framer Name Role Phone Name, Rock DE PAZ Primary Care Provider [phone] Encounter Details Date Type Department Care Team (Latest Contact Info) Description 01/04/2025 Results Follow-Up [facility] MEDICINE [address] [place] [address] [phone] Name, MD Rock [address] [place] [address] CBC auto differential, Comprehensive Metabolic Panel, PTH, [...] documented as of this encounter Care Teams Coin Purse Framer Relationship Specialty Start Date End Date Name, MD Rock [address] [place] [address] PCP - General Family Medicine 07/04/15 documented as of this encounter
--- OUTSIDE RECORDS SUMMARY | 2025-03-07 17:12 | XMS_ITS | Encounter Summary ---
Author Organization [employer] Address [address] [place] [address] 7 [place] [address] Care Team Providers Care Aluminum Boat Inspector Name Role Phone NameRock MD Primary Care Provider [phone] Reason for Visit * Reason Comments Med Refill Encounter Details Date Type Department Care Team ([facility] st Contact Info) Description 11/29/[address] [facility] [address] [place] [address] [phone] Name, MD Rock [address] [place] [address] Chronic pain syndrome Social History Tobacco Use [...] as of this encounter Care Teams Aluminum Boat Inspector Relationship Specialty Start Date End Date Name, MD Rock [address] [place] [address] PCP - General Family Medicine 07/04/15 documented as of this encounter
--- OUTSIDE RECORDS SUMMARY | 2025-03-07 17:12 | XMS_ITS | Data Portability ---
Author Organization [place] - [employer] [facility], [facility], [facility] Address [address] [place] [phone] Care Team Providers Care Nursing Faculty Name Role Phone RITA MICHEL Referring Provider Assessment No assessment recorded. Plan of Treatment Reminders Order Date Submit Date Provider Last Modified By Organization Details Last Modified Time Details Appointments None recorded. Lab None recorded. Referral None recorded. Procedures None recorded. Surgeries None recorded. Imaging None recorded. Medication Orders Augmentin 875 mg-125 mg tablet 2020 021 ISAK [id number]/, [address] [place], [address], 11:35:58 tramadol 50 mg tablet 2020 021 LISCO [id number]/, [address] [place], [address], 11:40:00 Patient TargetsNo targets recorded. Patient Instructions Encounter Date Encounter Id Patient Instructions Last Modified By Organization Details Last Modified Time 09/11/2020 [id number] Follow-up with PCP, or if can't get in with PCP, at the walk-in if no better or ER if any worse, or any red flag symptoms. Patient voiced understanding and agreement with treatment plan. [email or web address] Not available 09/11/2020 16:39:46 Reason for Referral None Reported. Problems Name Problem SNOMED Code Status Onset Date Resolution Date Notes Provider Name and Address Organization Details Recorded Time Hypercholes terolemia 17368513 Active 2020 CHITO [facility], [facility] 10:58:44 Insomnia 712312227 Active 2020 [facility] [place] 11:06:37 Depressive disorder 08611706 Active 2020 [facility] [place], [facility] 11:06:55 Anxiety 25354826 Active 2020 [facility] [place], [facility] 11:07:11 Hyperthyroi dism 45830714 Active 2020 [facility] [place], [facility] 11:07:58 Carcinoma of thyroid 401477671 Active 2020 [facility] [place], [facility] 11:08:23 Acid reflux 022462783 Active 2020 [facility] [place], [facility] 11:08:33 Gastroesoph ageal reflux disease 905299514 Active 2020 [facility] [place], [facility] 11:09:08 History of back pain 9918735183028 02 Active 2020 [facility] 11:09:21 Problem Notes None recorded. Medical Equipment None Reported. Allergies Allergen ID Allergen Name Allergen Category Reaction Reaction Severity Criticality Documentation Date Start Date Code Code System Note Provider Name and Address Organization Details Recorded Time 084680 Product containin g 3-hydroxy -3-methyl glutaryl- coenzyme A reductase inhibitor (product) medicatio n anaphylax is itching rash Not available Not available Not available Not available 09/11/2020 67420 009 SNOMED [facility] [place], [facility] 10:49:15 216077 Substance with sulfonami de structure and antibacte rial mechanism of action (substanc e) medicatio n itching rash Not available Not available Not available 09/11/2020 29110 8003 SNOMED [facility] [place], [facility] 10:49:15 Medications Name Sig Start Date Stop [...] Address Organization Details Last Updated DateTime 1 481515. 09 g 39.2 kg/m2 170.18 cm 96.8 [degF] 82 /min 98 % 98 % 17 /min 124/80 mm[Hg] Elissa Loredo [facility] [place] [facility], [facility] 10:55:03 Social History Question Answer Notes LastModified by Organizat ion Details LastModified Time Tobacco Smoking Status Former Smoker Elissa clements [facility], [facility] 09/11/2020 10:49:15 How Much Tobacco Do You Chew? None Information not available 09/11/2020 Marital Status [email or web address] Informatio n not available 09/11/2020 How Much Tobacco Do You Smoke? No [email or web address] Information not available 09/11/2020 Sex: Unknown Functional Status Question Answer Note LastModified by Organizat ion Details LastModified Time Do you or have you ever used smokeless tobacco? Never used smokeless tobacco [email or web address] Information not available 09/11/2020 Do you or have you ever used e-cigarettes or vape? Never used electronic cigarettes [email or web address] Information not available 09/11/2020 Mental Status None recorded. Family History Relationship Description Onset Age of this Age Resolved Age Notes LastModified by Organization Details LastModified Time Unspecified Relation Family history of malignant neoplasm [email or web address] Not available 09/11 10:59:06 Medical History Condition [...] ICD10 Code Diagnosis IMO Codes Diagnosis Note [id number] NIKOLAI Gaitan [facility] [address] [place] [address] 09/11/2020 10:30:20 09/11/2020 11:53:48 Acute periodontal abscess 21092002 K05.219 Acute. Initial Encounter. Not controlled . Will add Augmentin 875-125 BID x 10 days. (No CKD per pt) Continue Clindamyci n as directed. She is taking probiotics already. Discussed new medication , possible side effects, and risk of CDiff with Clinda as well as other abx. Tramadol offers good pain control. I will send refill until she can f/u with PCP [place]. She is encouraged to see a dentist in [place] prior to flying back next week. She will call Dr. Melo who she has seen previously . She may need to have this drained. Soft foods only. Tylenol/Mo addis for pain prn. every 6 hours. ER for acute changes Chronic back pain 842375 002 G89.29 Chronic, controlled with Tramadol, stable F/U with PCP [facility] [place] [facility] Concerns Section Related Observation LastModified by Organization Detai ls LastModified Time None Recorded Concern Status LastModified by Organization Details LastModified Time None Recorded Advance Directives Directive None Recorded Payers Insurance Date Sequence Insurance Name Policy Number Policy Walls Covered Member ID Walls Member ID Guarantor Name 11/11/2020 2 [place]: [facility] Coleen Polo 1 1 Coleen Polo 05/17/2021 1 [place] Coleen Polo [id number] Coleen Polo Notes Date Note Type [...] have you received? 2 doses Imported from [employer] on 09/11/2020 60yo F c/o left lower [...] an appointment to see a dentist in [place]. She denies fever/chills or other symptoms. Jennie Williamson MD [address] [address], [place], [address], [facility] - [facility], [facility] 09/11/2020 21:53:38 OBGyn Episode No OBEpisode recorded.
--- OUTSIDE RECORDS SUMMARY | 2025-03-07 17:12 | XMS_ITS | Encounter Summary ---
Author Organization [employer] Address [address] [place] [address] Care Team Providers Care Acid Strength Inspector Name Role Phone Name, Rock DE PAZ Primary Care Provider [phone] Reason for Visit * Reason Onset Date Comments Med Refill 09/10/2024 Encounter Details Date Type Department Care Team (Late st Contact Info) Description 09/10/2024 Refill [facility] MEDICINE [address] [place], [place] [phone] Name, MD Rock [address] [place] [address] Hypophosphatemia Social History Tobacco Use Types Packs/Day [...] documented as of this encounter Care Teams Acid Strength Inspector Relationship Specialty Start Date End Date Name, MD Rock [address] [place] [address] PCP - General Family Medicine 07/04/15 documented as of this encounter
--- OUTSIDE RECORDS SUMMARY | 2025-03-07 17:12 | XMS_ITS | Encounter Summary ---
Author Organization [employer] Address [address] [place] [address] [place] [address] Care Team Providers Care Baggage Inspector Name Role Phone Name, Rock DE PAZ Primary Care Provider [phone] Encounter Details Date Type Department Care Team ([facility] st Contact Info) Description 09/14/2022 Abstract [facility] MEDICINE [address] [place], [place] [phone] Name, MD Rock [address] [place] [address] Social History Tobacco Use Types Packs/Day Years [...] on filedocumented in this encounter Care Teams Baggage Inspector Relationship Specialty Start Date End Date Name, MD Rock [address] [place] [address] PCP - General Family Medicine 07/04/15 documented as of this encounter
--- OUTSIDE RECORDS SUMMARY | 2025-03-07 17:12 | XMS_ITS | Encounter Summary ---
Author Organization [employer] Address [address] [place] [address] [place] [address] Care Team Providers Care Nuclear Chemistry Technician Name Role Phone Name, Rock DE PAZ Primary Care Provider [phone] Reason for Visit * Reason Comments Med Refill Encounter Details Date Type Department Care Team ([facility] st Contact Info) Description 03/04/2025 Refill [facility] MEDICINE [address] [place], [place] [phone] Name, MD Rock [address] [place] [address] Rhinorrhea Social History Tobacco Use Types Packs/Day [...] documented as of this encounter Care Teams Nuclear Chemistry Technician Relationship Specialty Start Date End Date Name, MD Rock [address] [place] [address] PCP - General Family Medicine 07/04/15 documented as of this encounter
--- OUTSIDE RECORDS SUMMARY | 2025-03-07 17:12 | XMS_ITS | Encounter Summary ---
Author Organization [employer] Address [address] [place] [address] 7 [place] [address] Care Team Providers Care Calculus Teacher Name Role Phone Name, Rock DE PAZ Primary Care Provider [phone] Reason for Visit * Reason Comments Med Refill Encounter Details Date Type Department Care Team ([facility] st Contact Info) Description 08/22/2024 Refill [facility] MEDICINE 230 [place], [place] [phone] Name, MD Rock 230 [place] [address] Chronic pain syndrome Social History Tobacco Use [...] documented as of this encounter Care Teams Calculus Teacher Relationship Specialty Start Date End Date Name, MD Rock 230 [place] [address] PCP - General Family Medicine 07/04/15 documented as of this encounter
--- OUTSIDE RECORDS SUMMARY | 2025-03-07 17:12 | XMS_ITS | Encounter Summary ---
Author Organization [employer] Address [address] [place] [address] [place] [address] Care Team Providers Care Production Material Handler Name Role Phone Name, Rock DE PAZ Primary Care Provider [phone] Reason for Visit * Reason Onset Date Comments Med Refill 08/01/2024 Encounter Details Date Type Department Care Team (Late st Contact Info) Description 08/01/2024 Refill [facility] MEDICINE 230 [place], [place] [phone] Name, MD Rock [address] [place] [address] Chronic pain syndrome Social History Tobacco Use [...] documented as of this encounter Care Teams Production Material Handler Relationship Specialty Start Date End Date Name, MD Rock [address] [place] [address] PCP - General Family Medicine 07/04/15 documented as of this encounter
--- OUTSIDE RECORDS SUMMARY | 2025-03-07 17:12 | XMS_ITS | Encounter Summary ---
Author Organization [employer] Address [address] [place] [address] 7 [place] [address] Care Team Providers Care Clarifier Name Role Phone Name, Rock DE PAZ Primary Care Provider [phone] Reason for Visit * Reason Comments Med Refill Encounter Details Date Type Department Care Team ([facility] st Contact Info) Description 07/31/2024 Refill [facility] MEDICINE 230 [place], [place] [phone] Name, MD Rock 230 [place] [address] Chronic pain syndrome Social History Tobacco Use [...] documented as of this encounter Care Teams Clarifier Relationship Specialty Start Date End Date Name, MD Rock 230 [place] [address] PCP - General Family Medicine 07/04/15 documented as of this encounter
--- OUTSIDE RECORDS SUMMARY | 2025-03-07 17:12 | XMS_ITS | Encounter Summary ---
Author Organization [employer] Address [address] [place] [address] [place] [address] Care Team Providers Care Trimmer And Borer Machine Operator Name Role Phone Name, Rock DE PAZ Primary Care Provider [phone] Reason for Visit * Reason Onset Date Comments Med Refill 03/02/2024 Encounter Details Date Type Department Care Team (Late st Contact Info) Description 03/02/[address] [facility] MEDICINE 230 [place], [place] [phone] Name, MD Rock 230 [place] [address] Chronic pain syndrome Social History Tobacco Use [...] documented as of this encounter Care Teams Trimmer And Borer Machine Operator Relationship Specialty Start Date End Date Name, MD Rock [address] [place] [address] PCP - General Family Medicine 07/04/15 documented as of this encounter
--- OUTSIDE RECORDS SUMMARY | 2025-03-07 17:12 | XMS_ITS | Encounter Summary ---
Author Organization [employer] Address [address] [place] [address] Care Team Providers Care Squeegee Operator Name Role Phone Name, Rokc DE PAZ Primary Care Provider Reason for Visit * Reason Onset Date Comments Med Refill 06/14/2024 Encounter Details Date Type Department Care Team (Late st Contact Info) Description 06/14/2024 Refill [facility] MEDICINE 230 [place], [place] [phone] Name, MD Rcok 230 [place] [address] Chronic pain syndrome Social History Tobacco Use [...] documented as of this encounter Care Teams Squeegee Operator Relationship Specialty Start Date End Date Name, MD Rock 230 [place] [address] PCP - General Family Medicine 07/04/15 documented as of this encounter
--- OUTSIDE RECORDS SUMMARY | 2025-03-07 17:12 | XMS_ITS | Encounter Summary ---
Author Organization [employer] Address [address] [place] [address] [place] [address] Care Team Providers Care Customer Development Manager Name Role Phone Name, Rock DE PAZ Primary Care Provider [phone] Reason for Visit * Reason Onset Date Comments Med Refill 01/23/2025 Encounter Details Date Type Department Care Team (Late st Contact Info) Description 01/23/2025 Refill [facility] MEDICINE 230 [place], [place] [phone] Name, MD Rock 230 [place] [address] Social History Tobacco Use Types Packs/Day Years [...] documented as of this encounter Care Teams Customer Development Manager Relationship Specialty Start Date End Date Name, MD Rock 230 [place] [address] PCP - General Family Medicine 07/04/15 documented as of this encounter
--- OUTSIDE RECORDS SUMMARY | 2025-03-07 17:12 | XMS_ITS | Encounter Summary ---
Author Organization [employer] Address [address] [place] [address] Care Team Providers Care Toeing Stockings Name Role Phone Name, Rock DE PAZ Primary Care Provider [phone] Reason for Visit * Reason Onset Date Comments Med Refill 03/07/2025 Encounter Details Date Type Department Care Team (Late st Contact Info) Description 03/06/2025 Refill [facility] MEDICINE 230 [place], [place] [phone] Name, MD Rock 230 [place] [address] High cholesterol; Statin intolerance Social History Tobacco [...] documented as of this encounter Care Teams Toeing Stockings Relationship Specialty Start Date End Date Name, MD Rock 230 [place] [address] PCP - General Family Medicine 07/04/15 documented as of this encounter
--- OUTSIDE RECORDS SUMMARY | 2025-03-07 17:12 | XMS_ITS | Encounter Summary ---
Author Organization [employer] Address [address] [place] [address] [place] [address] Care Team Providers Care Street Worker Name Role Phone Name, Rock DE PAZ Primary Care Provider [phone] Reason for Visit * Reason Onset Date Comments Med Refill 11/26/2024 Encounter Details Date Type Department Care Team (Late st Contact Info) Description 11/26/2024 Refill [facility] MEDIC[facility] 230 [place], [place] [phone] Name, MD Rock 230 [place] [address] High cholesterol; Statin intolerance Social History Tobacco [...] documented as of this encounter Care Teams Street Worker Relationship Specialty Start Date End Date Name, MD Rock 230 [place] [address] PCP - General Family Medicine 07/04/15 documented as of this encounter
--- OUTSIDE RECORDS SUMMARY | 2025-03-07 17:12 | XMS_ITS | Encounter Summary ---
Author Organization [employer] Address [address] [place] [address] [place] [address] Care Team Providers Care Pipeline Integrity Engineer Name Role Phone Name, Rock DE PAZ Primary Care Provider [phone] Reason for Visit * Reason Onset Date Comments Med Refill 12/01/2024 Encounter Details Date Type Department Care Team (Late st Contact Info) Description 12/01/2024 Refill [facility] MEDICINE 230 [place], [place] [phone] Name, MD Rock 230 [place] [address] High cholesterol; Statin intolerance Social History Tobacco [...] documented as of this encounter Care Teams Pipeline Integrity Engineer Relationship Specialty Start Date End Date Name, MD Rock 230 [place] [address] PCP - General Family Medicine 07/04/15 documented as of this encounter
--- OUTSIDE RECORDS SUMMARY | 2025-03-07 17:12 | XMS_ITS | Encounter Summary ---
Author Organization [employer] Address [address] [place] [address] Care Team Providers Care Flower Planter Name Role Phone Name, Rock DE PAZ Primary Care Provider [phone] Reason for Visit * Reason Onset Date Comments Med Refill 10/23/2024 Encounter Details Date Type Department Care Team (Late st Contact Info) Description 10/23/2024 Refill [facility] MEDICINE 230 [place], [place] [phone] Name, MD Rock 230 [place] [address] Insomnia, unspecified type Social History Tobacco Use [...] documented as of this encounter Care Teams Flower Planter Relationship Specialty Start Date End Date Name, MD Rock 230 [place] [address] PCP - General Family Medicine 07/04/15 documented as of this encounter
--- OUTSIDE RECORDS SUMMARY | 2025-03-07 17:12 | XMS_ITS | Encounter Summary ---
Author Organization [employer] Address [address] [place] [address] Care Team Providers Care Ibm Bpm Architect Name Role Phone Name, Rock DE PAZ Primary Care Provider Reason for Visit * Reason Onset Date Comments Med Refill 06/16/2024 Encounter Details Date Type Department Care Team (Late st Contact Info) Description 06/16/2024 Refill [facility] MEDICINE 230 [place], [place] [phone] Name, MD Rock 230 [place] [address] Chronic pain syndrome Social History Tobacco Use [...] documented as of this encounter Care Teams Ibm Bpm Architect Relationship Specialty Start Date End Date Name, MD Rock 230 [place] [address] PCP - General Family Medicine 07/04/15 documented as of this encounter
--- OUTSIDE RECORDS SUMMARY | 2025-03-07 17:12 | XMS_ITS | Encounter Summary ---
Author Organization [employer] Address [address] [place] [address] Care Team Providers Care Hospitality Ambassador Name Role Phone Name, Rock DE PAZ Primary Care Provider [phone] Reason for Visit * Reason Onset Date Comments Med Refill 03/10/2024 Encounter Details Date Type Department Care Team (Late st Contact Info) Description 03/10/2024 Refill [facility] MEDICINE 230 [place], [place] [phone] Name, MD Rock 230 [place] [address] Insomnia, unspecified type Social History Tobacco Use [...] documented as of this encounter Care Teams Hospitality Ambassador Relationship Specialty Start Date End Date Name, MD Rock 230 [place] [address] PCP - General Family Medicine 07/04/15 documented as of this encounter
--- OUTSIDE RECORDS SUMMARY | 2025-03-07 17:12 | XMS_ITS | Encounter Summary ---
Author Organization [employer] Address [address] [place] [address] [place] [address] Care Team Providers Care Manager Zone Name Role Phone Name, Rock DE PAZ Primary Care Provider [phone] Reason for Visit * Reason Comments Med Refill Encounter Details Date Type Department Care Team ([facility] st Contact Info) Description 09/11/2024 Refill [facility] MEDICINE 230 [place], [place] [phone] Name, MD Rock 230 [place] [address] Hypophosphatemia Social History Tobacco Use Types Packs/Day [...] as of this encounter Care Teams Manager Zone Relationship Specialty Start Date End Date Name, MD Rock [address] [place] [address] PCP - General Family Medicine 07/04/15 documented as of this encounter
--- OUTSIDE RECORDS SUMMARY | 2025-03-07 17:12 | XMS_ITS | Encounter Summary ---
Author Organization [employer] Address [address] [place] [address] Care Team Providers Care Power And Recovery Shift Engineer Name Role Phone Name, Rock DE PAZ Primary Care Provider [phone] Reason for Visit * Reason Comments Med Refill Encounter Details Date Type Department Care Team ([facility] st Contact Info) Description 09/21/2022 Refill [facility] MEDICINE [address] [place] [address] [phone] Name, MD Rock 230 [place] [address] Insomnia, unspecified type; Pain Social History Tobacco [...] pain documented in this encounter Care Teams Power And Recovery Shift Engineer Relationship Specialty Start Date End Date Name, MD Rock 230 [place] [address] PCP - General Family Medicine 07/04/15 documented as of this encounter
--- OUTSIDE RECORDS SUMMARY | 2025-03-07 17:12 | XMS_ITS | Encounter Summary ---
Author Organization [employer] Address [address] [place] [address] Care Team Providers Care Associate Business Analyst Name Role Phone Name, Rock DE PAZ Primary Care Provider Reason for Visit * Reason Onset Date Comments Med Refill 06/03/2024 Encounter Details Date Type Department Care Team (Late st Contact Info) Description 06/03/2024 Refill [facility] MEDICINE 230 [place], [place] [phone] Name, MD Rock 230 [place] [address] Hypophosphatemia Social History Tobacco Use Types Packs/Day [...] as of this encounter Care Teams Associate Business Analyst Relationship Specialty Start Date End Date Name, MD Rock [address] [place] [address] PCP - General Family Medicine 07/04/15 documented as of this encounter
--- OUTSIDE RECORDS SUMMARY | 2025-03-07 17:12 | XMS_ITS | Encounter Summary ---
Author Organization [employer] Address [address] [place] [address] Care Team Providers Care Flagsetter Name Role Phone Name, Rock DE PAZ Primary Care Provider [phone] Reason for Visit * Reason Onset Date Comments Med Refill 09/10/2024 Encounter Details Date Type Department Care Team (Late st Contact Info) Description 09/10/2024 Refill [facility] MEDICINE 230 [place], [place] [phone] Name, MD Rock 230 [place] [address] Chronic pain syndrome Social History Tobacco Use [...] documented as of this encounter Care Teams Flagsetter Relationship Specialty Start Date End Date Name, MD Rock [address] [place] [address] PCP - General Family Medicine 07/04/15 documented as of this encounter
--- OUTSIDE RECORDS SUMMARY | 2025-03-07 17:13 | XMS_ITS | Encounter Summary ---
Author Organization [employer] Address [address] [place] [address] [place] [address] Care Team Providers Care Counter Pocket Sewer Name Role Phone Name, Rock DE PAZ Primary Care Provider [phone] Reason for Visit * Reason Onset Date Comments Med Refill 02/09/2024 Encounter Details Date Type Department Care Team (Late st Contact Info) Description 02/09/2024 Refill [facility] MEDICINE 230 [place], [place] [phone] Name, MD Rock [address] [place] [address] Chronic pain syndrome Social History Tobacco Use [...] documented as of this encounter Care Teams Counter Pocket Sewer Relationship Specialty Start Date End Date Name, MD Rock [address] [place] [address] PCP - General Family Medicine 07/04/15 documented as of this encounter
--- OUTSIDE RECORDS SUMMARY | 2025-03-07 17:13 | XMS_ITS | Encounter Summary ---
Author Organization [employer] Address [address] [place] [address] Care Team Providers Care Road Design Engineer Name Role Phone Name, Rock DE PAZ Primary Care Provider [phone] Reason for Visit * Reason Onset Date Comments Med Refill 05/09/2024 Encounter Details Date Type Department Care Team (Late st Contact Info) Description 05/09/2024 Refill [facility] MEDICINE 230 [place], [place] [phone] Name, MD Rock 230 [place] [address] Rhinorrhea Social History Tobacco Use Types Packs/Day [...] documented as of this encounter Care Teams Road Design Engineer Relationship Specialty Start Date End Date Name, MD Rock [address] [place] [address] PCP - General Family Medicine 07/04/15 documented as of this encounter
--- OUTSIDE RECORDS SUMMARY | 2025-03-07 17:13 | XMS_ITS | Encounter Summary ---
Author Organization [employer] Address [address] [place] [address] [address] [address] Care Team Providers Care Lpc Name Role Phone Name, Rock DE PAZ Primary Care Provider [phone] Reason for Visit * Reason Comments Med Refill Encounter Details Date Type Department Care Team (Late st Contact Info) Description 11/26/2022 Refill [facility] MEDICINE [address] [place] [address] [phone] Name, MD Rock [address] [place] [address] Chronic pain syndrome Social History Tobacco Use [...] documented as of this encounter Care Teams Lpc Relationship Specialty Start Date End Date Name, MD Rock [address] [place] [address] PCP - General Family Medicine 07/04/15 documented as of this encounter
--- OUTSIDE RECORDS SUMMARY | 2025-03-07 17:13 | XMS_ITS | Encounter Summary ---
Author Organization [employer] Address [address] [place] [address] [place] [address] Care Team Providers Care Commodity Buyer Name Role Phone Name, Rock DE PAZ Primary Care Provider [phone] Reason for Visit * Reason Onset Date Comments Med Refill 03/02/2024 Encounter Details Date Type Department Care Team (Late st Contact Info) Description 03/02/2024 Refill [facility] MEDICINE 230 [place], [place] [phone] Name, MD Rock [address] [place] [address] Social History Tobacco Use Types Packs/Day Years [...] documented as of this encounter Care Teams Commodity Buyer Relationship Specialty Start Date End Date Name, MD Rock [address] [place] [address] PCP - General Family Medicine 07/04/15 documented as of this encounter
--- OUTSIDE RECORDS SUMMARY | 2025-03-07 17:13 | XMS_ITS | Encounter Summary ---
Author Organization [employer] Address [address] [place] [address] [place] [address] Care Team Providers Care Buttermaker Continuous Churn Name Role Phone Name, Rock DE PAZ Primary Care Provider [phone] Reason for Visit * Reason Onset Date Comments Med Refill 02/09/2024 Encounter Details Date Type Department Care Team (Late st Contact Info) Description 02/09/2024 Refill [facility] MEDICINE 230 [place], [place] [phone] Name, MD Rock 230 [place] [address] Insomnia, unspecified type Social History Tobacco Use [...] documented as of this encounter Care Teams Buttermaker Continuous Churn Relationship Specialty Start Date End Date Name, MD Rock [address] [place] [address] PCP - General Family Medicine 07/04/15 documented as of this encounter
--- OUTSIDE RECORDS SUMMARY | 2025-03-07 17:13 | XMS_ITS | Encounter Summary ---
Author Organization [employer] Address [address] [place] [address] Care Team Providers Care Certified Professional Ergonomist Name Role Phone Name, Rock DE PAZ Primary Care Provider [phone] Reason for Visit * Reason Onset Date Comments Med Refill 01/31/2024 Encounter Details Date Type Department Care Team ([facility] st Contact Info) Description 01/31/2024 Refill [facility] [address] [place] [address] Juhi Diaz, RN MDS [address] [place] [address] Chronic pain syndrome; Insomnia, unspecified type Social [...] documented as of this encounter Care Teams Certified Professional Ergonomist Relationship Specialty Start Date End Date Name, MD Rock [address] [place] [address] PCP - General Family Medicine 07/04/15 documented as of this encounter
--- OUTSIDE RECORDS SUMMARY | 2025-03-07 17:13 | XMS_ITS | Encounter Summary ---
Author Organization [employer] Address [address] [place] [address], [place] [address] Care Team Providers Care Ice Plant Operator Name Role Phone Name, Rock DE PAZ Primary Care Provider [phone] Reason for Visit * Reason Comments Med Refill Encounter Details Date Type Department Care Team (Late st Contact Info) Description 11/23/2022 Refill [facility] MEDICINE [address] [place], [place] [phone] Fany Pearson MD 230 [place] [address] Chronic pain syndrome; Insomnia, unspecified type Social [...] documented as of this encounter Care Teams Ice Plant Operator Relationship Specialty Start Date End Date Name, MD Rock [address] [place] [address] PCP - General Family Medicine 07/04/15 documented as of this encounter
--- OUTSIDE RECORDS SUMMARY | 2025-03-07 17:13 | XMS_ITS | Encounter Summary ---
Author Organization [email or web address] Address [address] [place] [address] [place] [address] Care Team Providers Care Ornamental Iron Worker Helper Name Role Phone Name, Rock DE PAZ Primary Care Provider [phone] Reason for Visit * Reason Onset Date Comments Med Refill 05/08/2024 Encounter Details Date Type Department Care Team (Late st Contact Info) Description 05/08/2024 Refill [facility] [address] [place] [address] Name, MD Rock 230 [place] [address] Rhinorrhea Social History Tobacco Use Types Packs/Day [...] documented as of this encounter Care Teams Ornamental Iron Worker Helper Relationship Specialty Start Date End Date Name, MD Rock [address] [place] [address] PCP - General Family Medicine 07/04/15 documented as of this encounter
--- OUTSIDE RECORDS SUMMARY | 2025-03-07 17:13 | XMS_ITS | Encounter Summary ---
Author Organization [employer] Address [address] [place] [address] Care Team Providers Care Programmer Business Name Role Phone Name, Rock DE PAZ Primary Care Provider [phone] Reason for Visit * Reason Onset Date Comments Med Refill 07/09/2024 Encounter Details Date Type Department Care Team (Late st Contact Info) Description 07/09/2024 Refill [facility] MEDICINE 230 [place], [place] [phone] Name, MD Rock [address] [place] [address] Chronic pain syndrome Social History Tobacco Use [...] documented as of this encounter Care Teams Programmer Business Relationship Specialty Start Date End Date Name, MD Rock [address] [place] [address] PCP - General Family Medicine 07/04/15 documented as of this encounter
--- OUTSIDE RECORDS SUMMARY | 2025-03-07 17:13 | XMS_ITS | Encounter Summary ---
Author Organization [employer] Address [address] [place] [address] 7 [place] [address] Care Team Providers Care Home Visits Nurse Name Role Phone Name, Rock DE PAZ Primary Care Provider [phone] Reason for Visit * Reason Comments Med Refill Encounter Details Date Type Department Care Team (Late st Contact Info) Description 11/18/2022 Refill [facility] MEDICINE [address] [place] [address] [phone] Name, MD Rock [address] [place] [address] Chronic pain syndrome Social History Tobacco Use [...] 6 11/20/2022 10:14 AM Kevyn Norman * How difficult have these problems made it for you to do your work, take care of things at home, or get along with other people? Answer Date of Assessment Author Very difficult 11/20/2022 10:14 AM Josephine Granados * Over the past 2 weeks, how [...] way Several days 11/20/2022 10:14 AM Josephine Nomran Patient Health Questionnaire-9 Score 21 11/20/2022 10:14 AM Josephine Norman documented as of this encounter Plan of Treatment Not on file documented as of this encounter Visit Diagnoses Diagnosis Chronic pain syndrome documented in this encounter Care Teams Home Visits Nurse Relationship Specialty Start Date End Date Name, MD Rock [address] [place] [address] PCP - General Family Medicine 07/04/15 documented as of this encounter
--- OUTSIDE RECORDS SUMMARY | 2025-03-07 17:13 | XMS_ITS | Encounter Summary ---
Author Organization [employer] Address [address] [place] [address] [place] [address] Care Team Providers Care Clipper And Turner Name Role Phone Name, Rock DE PAZ Primary Care Provider Reason for Visit * Reason Onset Date Comments Med Refill 02/09/2024 Encounter Details Date Type Department Care Team (Late st Contact Info) Description 02/09/2024 Refill [facility] MEDICINE 230 [place], [place] [phone] Name, MD Rock [address] [place] [address] Social History Tobacco Use Types Packs/Day Years [...] documented as of this encounter Care Teams Clipper And Turner Relationship Specialty Start Date End Date Name, MD Rock [address] [place] [address] PCP - General Family Medicine 07/04/15 documented as of this encounter
--- OUTSIDE RECORDS SUMMARY | 2025-03-07 17:13 | XMS_ITS | Encounter Summary ---
Author Organization [employer] Address [address] [place] [address] 7 [place] [address] Care Team Providers Care Mental Health Worker Name Role Phone Name, Rock DE PAZ Primary Care Provider [phone] Reason for Visit * Reason Comments Med Refill Encounter Details Date Type Department Care Team (Late st Contact Info) Description 11/20/2022 Refill [facility] [address] [place], [place] [phone] Fany Pearson MD [address] [place] [address] Chronic pain syndrome; Insomnia, unspecified type Social [...] documented as of this encounter Care Teams Mental Health Worker Relationship Specialty Start Date End Date Name, MD Rock [address] [place] [address] PCP - General Family Medicine 07/04/15 documented as of this encounter
--- OUTSIDE RECORDS SUMMARY | 2025-03-07 17:13 | XMS_ITS | Encounter Summary ---
Author Organization [employer] Address [address] [place] [address] [place] [address] Care Team Providers Care Acidizer Helper Name Role Phone Name, Rock DE PAZ Primary Care Provider [phone] Reason for Visit * Reason Onset Date Comments Med Refill 05/08/2024 Encounter Details Date Type Department Care Team (Late st Contact Info) Description 05/08/2024 Refill [facility]INE [address] [place], [place] [phone] Name, MD Rock [address] [place] [address] Chronic pain syndrome; Insomnia, unspecified type Social [...] documented as of this encounter Care Teams Acidizer Helper Relationship Specialty Start Date End Date Name, MD Rock [address] [place] [address] PCP - General Family Medicine 07/04/15 documented as of this encounter
--- OUTSIDE RECORDS SUMMARY | 2025-03-07 17:13 | XMS_ITS | Encounter Summary ---
Author Organization [employer] Address [address] [place] [address] [place] [address] Care Team Providers Care Cycle Repairer Name Role Phone Name, Rock DE PAZ Primary Care Provider [phone] Reason for Visit * Reason Onset Date Comments Med Refill 02/09/2024 Encounter Details Date Type Department Care Team (Late st Contact Info) Description 02/09/2024 Refill [facility] [address] [place], [place] [phone] Name, MD Rock [address] [place] [address] Chronic pain syndrome; Insomnia, unspecified type Social [...] documented as of this encounter Care Teams Cycle Repairer Relationship Specialty Start Date End Date Name, MD Rock [address] [place] [address] PCP - General Family Medicine 07/04/15 documented as of this encounter
== END 2025-03-07 14:32 | disposition home or self-care (01) ==
LOC: HO.ENCR 13:59
PROVIDERS: PCP Internal Medicine Geriatric Medicine; Visit Provider Internal Medicine Endocrinology, Diabetes & Metabolism
DX: M81.0 Age-related osteoporosis without current pathological fracture (principal)
CPT/HCPCS: 99213

== ENCOUNTER → 2025-03-07 13:59 | Outpatient (BNVA) | payer MEDICARE, MEDICAID, SELFPAY | PROVIDERS: PCP Internal Medicine Geriatric Medicine; Visit Provider Internal Medicine Endocrinology, Diabetes & Metabolism | DX: M81.0 Age-related osteoporosis without current pathological fracture (principal) | CPT/HCPCS: 99212 ==

== ENCOUNTER 2025-03-20 13:03 | Outpatient (AMB) | payer MEDICARE, MEDICAID, SELFPAY ==
--- NOTE | 2025-03-20 13:37 | MHC.OFFVIS ---
Vital Signs 03/20/25 13:52 Height 5 ft 7 in Weight 198 lb BMI 31.0 BP 102/56 L Blood Pressure Location Rt brachial Position Sitting Pulse 54 Pulse Source Pulse Oximeter Pulse Oximetry (%) 100 Oxygen Delivery Method Room Air Intake Visit Reasons: 3 month follow up Intake Note: Est pt for mgmt of GERD + CIC. CC: Pt denies any new GI concerns or sx at this time. Administration Vice President Required: No Accompanied by: Self / Same As Patient Allergies pravastatin Allergy (Severe, Verified 03/20/25 13:50) Blister Sulfa (Sulfonamide Antibiotics) Allergy (Severe, Verified 03/20/25 13:50) Itching HPI HPI 3 month follow up: Details: LAST VISIT GERD (gastroesophageal reflux disease) Status post repair of paraesophageal diaphragmatic hernia Steatosis, liver Constipation Nausea Plan Patient will continue omeprazole in the morning. May take sucralfate at bedtime. Avoid dietary triggers and late night snacking. Staying upright for minimum 3 hours after meals discussed with patient. Patient will be sent for upper GI with barium swallow to evaluate for hernia. Continue taking Dulcolax daily. Increase fluid intake and activity to promote better bowel motility. Patient will follow-up in the office in 3 months, sooner on as needed basis. She is agreeable to this plan and verbalizes understanding of instructions. She was given the opportunity to ask questions and all questions answered. ? Thank you for allowing me to participate in her care Orders [place] upper GI w Ba Swallow Today K21.9 Refilled ondansetron HCl 4 mg PO Q6H PRN 20 tabs 0RF for nausea/vomiting sucralfate 1 g PO BEDTIME 30 tabs 1RF R19.7 TODAY'S VISIT Is here today for follow-up and discuss upper GI barium swallow. Hiatal hernia not suspected, gastric reflux not seen. Patient reports that she has been doing much better now. She is not nauseous anymore. She is taking omeprazole and sucralfate at bedtime. Patient reports that she has seen big difference after starting sucralfate. Patient reports however she still is having dry mouth and trouble swallowing dry food like chicken. Patient reports that she has to have a drink with almost any bite. Patient denies dyspepsia or odynophagia. Patient reports occasional oropharyngeal dysphagia. Patient reports that she is taking stool softener and for the most part she is able to have a bowel movement. Occasionally uses Senokot if no BM for 1 or 2 days. Patient denies any other GI concerning symptoms. [facility] Medical History Pre-op evaluation BMI 33.0-33.9,adult Steatosis, liver GERD (gastroesophageal reflux disease) Kidney stones Seizures Anxiety Depression Hyperlipidemia Osteoporosis Renal calculi Vitamin D deficiency History of thyroid cancer Hypothyroidism Chronic back pain Insomnia Diarrhea Osteoarthritis Anxiety and depression C. difficile colitis Asthma Hernia Surgical History Hx of colonoscopy History of esophagogastroduodenoscopy (EGD) History of repair of hiatal hernia S/P gastric sleeve procedure H/O LEEP H/O lithotripsy History of hernia surgery H/O adenoidectomy History of tonsillectomy S/P panniculectomy H/O tubal ligation History of appendectomy H/O thyroidectomy Family History Mother Graves disease Social History Household Members: Family Housing: House Do you presently have visiting nurse or other home services: No Patient Tobacco Use Status: Former Tobacco user Cigarettes Per Day: 2 Years Smoked: 10 years service: No Current occupational status: unemployed Female Reproductive History Menstrual Age of Menarche: 14 Review of Systems Const Denies weight gain and Denies weight loss ENT Reports no additional complaints, Denies dysphagia and Denies odynophagia Card Reports no additional complaints Resp Reports no additional complaints GI Reports abdominal pain (Epigastric), Denies belching, Denies melena, Reports bloating, Denies change in bowel habits, Reports constipation, Denies dysphagia, Denies excessive flatus, Denies dyspepsia, Reports heartburn, Denies diarrhea, Denies loose stools, Reports nausea, Denies odynophagia and Denies vomiting Reports no additional complaints Musc Reports no additional complaints Neuro Reports no additional complaints Psych Reports no additional complaints Endo Reports no additional complaints Physical Exam Const General: healthy appearing and no acute distress Nutritional Appearance: well nourished and obese Orientation/consciousness: patient oriented x3 Resp Effort & Inspection: normal respiratory effort, able to speak in complete sentences, no tracheal deviation and symmetric chest movement Auscultation: clear to auscultation bilaterally Cardio Rate: regular rate GI Inspection: No distended and Yes obesity Palpation (GI): Soft to palpation, not firm, nontender and No hepatosplenomegaly present Auscultation: normal bowel sounds General: Yes no CVA tenderness Back/Spine/Pelvis Back: no CVA tenderness Skin General skin exam: elasticity normal, turgor normal and dry skin Neuro General: patient oriented x3 Psych Appearance: grossly normal Mental Status: mental status grossly normal Results Reviewed Results Reviewed: UPPER GI BARIUM SWALLOW 01/15/2025 IMPRESSION: There is slow initiation of bolus from the oral cavity on several occasions. The esophagus is widely patent except for distended mid and distal esophagus which clears with time. Gastric sleeve surgical changes. No hiatal hernia suspected. There is normal mucosal pattern and peristalsis of stomach and the duodenum. Assessment & Plan Assessment & Plan (1) GERD (gastroesophageal reflux disease): Code(s): K21.9 - Gastro-esophageal reflux disease without esophagitis Category: Medical Qualifiers: Esophagitis presence: esophagitis presence not specified Qualified Code(s): K21.9 - Gastro-esophageal reflux disease without esophagitis (2) Steatosis, liver: Code(s): K76.0 - Fatty (change of) liver, not elsewhere classified Category: Medical (3) Intra-abdominal adhesions: Code(s): K66.0 - Peritoneal adhesions (postprocedural) (postinfection) Category: Medical (4) S/P panniculectomy: Code(s): Z98.890 - Other specified postprocedural states Category: Surgical Plan Continue omeprazole and sucralfate. Avoid dietary triggers and late night snacking. Staying upright for minimum 3 hours after meals discussed with patient. Patient will be referred to ENT for dysphagia and to pulmonology. Message sent to surgical schedulers to book upper endoscopy for patient. Patient will be seen after the procedure. She will call us if he will have any GI concerning symptoms. Patient is agreeable to this plan and verbalizes understanding of instructions. She was given the opportunity to ask questions and all questions answered. Thank you for allowing me to participate in her care Orders: Referrals Ear/Nose/Throat Referral R13.10 - Dysphagia, unspecified Pulmonology Referral J45.909 - Unspecified asthma, uncomplicated GI Procedure Notification R13.10 - Dysphagia, unspecified Coding Level of Care Code Est Pt Level 4 (03008) Complex visit Add On G2211 Diagnoses Gastroesophageal reflux disease, unspecified whether esophagitis present K21.9 Esophagitis presence: esophagitis presence not specified Steatosis, liver K76.0 Intra-abdominal adhesions K66.0 S/P panniculectomy Z98.890 Time Spent (min) 40 Comment 25 minutes spent with patient and additional 15 minutes spent reviewing her records
[2025-03-20 13:52] VITALS: BP 102/56; PULSE 54; O2SAT 100; BMI 31.0
--- OUTSIDE RECORDS SUMMARY | 2025-03-20 16:49 | XMS_ITS | Encounter Summary ---
Author Organization [employer] Address [address] [place] [address] Care Team Providers Care Formula Room Worker Name Role Phone Name, Rock DE PAZ Primary Care Provider [phone] Reason for Visit * Reason Onset Date Comments Med Refill 09/10/2024 Encounter Details Date Type Department Care Team (Late st Contact Info) Description 09/10/2024 Refill [facility]INE [address] [place], [place] [phone] Name, MD Rock [address] [place] [address] Chronic pain syndrome Social History Tobacco Use [...] Care Team (Late st Contact Info) Description 05/28/2025 3:30 PM EST Office Visit [facility] [address] [place] [address] NameRock MD [address] [place] [address] documented as of this encounter Visit Diagnoses Diagnosis Chronic pain syndrome documented in this encounter Additional Health Concerns Assessment Noted Time PHQ-9 Depression Total Score: 17 025 2:50 PM EST documented as of this encounter Care Teams Formula Room Worker Relationship Specialty Start Date End Date NameRock MD [address] [place] [address] PCP - General Family Medicine 07/04/15 documented as of this encounter
--- OUTSIDE RECORDS SUMMARY | 2025-03-20 16:49 | XMS_ITS | Encounter Summary ---
Author Organization [employer] Address [address] [place] [address] [place] [address] Care Team Providers Care Baker Bench Name Role Phone Name, Rock DE PAZ Primary Care Provider [phone] Reason for Visit * Reason Onset Date Comments Med Refill 12/01/2024 Encounter Details Date Type Department Care Team (Late st Contact Info) Description 12/01/2024 Refill [facility] MED[facility]INE [address] [place], [place] [phone] Name, MD Rock [address] [place] [address] High cholesterol; Statin intolerance Social History Tobacco [...] Description 05/28/2025 3:30 PM EST Office Visit [facility] MEDICINE [address] [place] [address] Name, MD Rock [address] [place] [address] documented as of this encounter Visit Diagnoses Diagnosis High cholesterol Pure hypercholesterolemia Statin intolerance documented in this encounter Additional Health Concerns Assessment Noted Time PHQ-9 Depression Total Score: 17 025 2:50 PM EST documented as of this encounter Care Teams Baker Bench Relationship Specialty Start Date End Date Name, MD Rock [address] [place] [address] PCP - General Family Medicine 07/04/15 documented as of this encounter
--- OUTSIDE RECORDS SUMMARY | 2025-03-20 16:49 | XMS_ITS | Encounter Summary ---
Author Organization [employer] Address [address] [place] [address] 7 [place] [address] Care Team Providers Care Consulting Sales Executive Name Role Phone Name, Rock DE PAZ Primary Care Provider [phone] Reason for Visit * Reason Comments Med Refill Encounter Details Date Type Department Care Team ([facility] st Contact Info) Description 04/26/2023 Refill [facility] MED[facility]INE [address] [place], [place] [phone] Name, MD Rock [address] [place] [address] Insomnia, unspecified type Social History Tobacco Use [...] Description 05/28/2025 3:30 PM EST Office Visit [facility] MEDICINE [address] [place] [address] Name, MD Rock [address] [place] [address] documented as of this encounter Visit Diagnoses Diagnosis Insomnia, unspecified type documented in this encounter Additional Health Concerns Assessment Noted Time PHQ-9 Depression Total Score: 21 023 10:14 AM EDT documented as of this encounter Care Teams Consulting Sales Executive Relationship Specialty Start Date End Date Name, MD Rock [address] [place] [address] PCP - General Family Medicine 07/04/15 documented as of this encounter
--- OUTSIDE RECORDS SUMMARY | 2025-03-20 16:49 | XMS_ITS | Encounter Summary ---
Author Organization [employer] Address [address] [place] [address] [place] [address] Care Team Providers Care Pump Technician Name Role Phone Name, Rock DE PAZ Primary Care Provider [phone] Reason for Visit * Reason Onset Date Comments Med Refill 04/27/2024 Encounter Details Date Type Department Care Team (Late st Contact Info) Description 04/27/2024 Refill [facility] MEDICINE [address] [place], [place] [phone] Name, MD Rock [address] [place] [address] Chronic pain syndrome Social History Tobacco Use [...] Description 05/28/2025 3:30 PM EST Office Visit [facility] MEDICINE [address] [place] [address] Name, MD Rock [address] [place] [address] documented as of this encounter Visit Diagnoses Diagnosis Chronic pain syndrome documented in this encounter Additional Health Concerns Assessment Noted Time PHQ-9 Depression Total Score: 12 024 2:16 PM EDT documented as of this encounter Care Teams Pump Technician Relationship Specialty Start Date End Date NameRock MD [address] [place] [address] PCP - General Family Medicine 07/04/15 documented as of this encounter
--- OUTSIDE RECORDS SUMMARY | 2025-03-20 16:49 | XMS_ITS | Encounter Summary ---
Author Organization [employer] Address [address] [place] [address] Care Team Providers Care Heel Stiffener Name Role Phone Name, Rock DE PAZ Primary Care Provider [phone] Encounter Details Date Type Department Care Team (Late st Contact Info) Description 05/06/2022 Orders Only [facility] MEDICINE [address] [place] [phone] Karen Falk LPN Social History Tobacco Use [...] Description 05/28/2025 3:30 PM EST Office Visit [facility]INE [address] [place] [phone] Rock Rodrigues MD [address] [place] [address] documented as of this encounter Visit Diagnoses Not on filedocumented in this encounter Care Teams Heel Stiffener Relationship Specialty Start Date End Date NameRock MD [address] [place] [address] PCP - General Family Medicine 07/04/15 documented as of this encounter
--- OUTSIDE RECORDS SUMMARY | 2025-03-20 16:49 | XMS_ITS | Data Portability ---
Author Organization [place] - [facility], [facility], [facility] Address [address] [place] [address] Care Team Providers Care Commanding Officer Motorized Squad Name Role Phone RITA MICHEL Referring Provider Assessment No assessment recorded. Plan of Treatment Reminders Order Date Submit Date Provider Last Modified By Organization Details Last Modified Time Details Appointments None recorded. Lab None recorded. Referral None recorded. Procedures None recorded. Surgeries None recorded. Imaging None recorded. Medication Orders Augmentin 875 mg-125 mg tablet 2020 021 ISAK [id number]/, [address] [place], [address], 11:35:58 tramadol 50 mg tablet 2020 021 [id number]/, [id number] [place], [address], 11:40:00 Patient TargetsNo targets recorded. Patient Instructions Encounter Date Encounter Id Patient Instructions Last Modified By Organization Details Last Modified Time 09/11/2020 [id number] Follow-up with PCP, or if can't get in with PCP, at the walk-in if no better or ER if any worse, or any red flag symptoms. Patient voiced understanding and agreement with treatment plan. [email or web address] Not available 09/11/2020 16:39:46 Reason for Referral None Reported. Problems Name Problem SNOMED Code Status Onset Date Resolution Date Notes Provider Name and Address Organization Details Recorded Time Hypercholes terolemia 35510030 Active 2020 [facility], [facility] 10:58:44 Insomnia 027021732 [facility] 11:06:37 Depressive disorder 33834338 Active [facility] 11:06:55 Anxiety 99938224 Active 2020 [facility] 11:07:11 Hyperthyroi dism 61103705 Active 2020 [facility] 11:07:58 Carcinoma of thyroid 605255941 Active 2020 [facility] 11:08:23 Acid reflux 030683216 Active 2020 [facility] 11:08:33 Gastroesoph ageal reflux disease 113928296 Active 2020 [facility] 11:09:08 History of back pain 7807671541970 02 [facility]:09:21 Problem Notes None recorded. Medical Equipment None Reported. Allergies Allergen ID Allergen Name Allergen Category Reaction Reaction Severity Criticality Documentation Date Start Date Code Code System Note Provider Name and Address Organization Details Recorded Time 775761 Product containin g 3-hydroxy -3-methyl glutaryl- coenzyme A reductase inhibitor (product) medicatio n anaphylax is itching rash Not available Not available Not available Not available 09/11/2020 54235 009 [facility]ED [facility] 10:49:15 334428 Substance with sulfonami de structure and antibacte rial mechanism of action (substanc e) medicatio n itching rash Not available Not available Not available 09/11/2020 30230 8003 SN[facility]ED [facility] 10:49:15 Medications Name Sig Start [...] height Body temperature Heart rate Oxygen saturation Respiratory rate Systolic And Diastolic Provider Name and Address Organization Details Last Updated DateTime 283668. 09 g 39.2 kg/m2 170.18 cm 96.8 [degF] 82 /min 98 % 17 /min 124/80 mm[Hg] Elissa Loredo [facility] Physician [facility], [facility] 10:55:03 Social History Question Answer Notes LastModified by [employer] Details LastModified Time Tobacco Smoking Status Former Smoker Elissa clements [facility], [facility] 09/11/2020 10:49:15 How Much Tobacco Do You Chew? None Information not available 09/11/2020 Marital Status [email or web address] Informatio n not available 09/11/2020 How Much Tobacco Do You Smoke? No [email or web address] Information not available 09/11/2020 Sex: Unknown Functional Status Question Answer Note LastModified by Organizat ion Details LastModified Time Do you or have you ever used smokeless tobacco? Never used smokeless tobacco [email or web address] Information not available 09/11/2020 Do you or have you ever used e-cigarettes or vape? Never used electronic cigarettes [email or web address] Information not available 09/11/2020 Mental Status None recorded. Family History Relationship Description Onset Age of this Age Resolved Age Notes LastModified by Organization Details LastModified Time Unspecified Relation Family history of malignant neoplasm [email or web address] Not available 09/11 10:59:06 Medical History Condition [...] ICD10 Code Diagnosis IMO Codes Diagnosis Note [id number] NIKOLAI Gaitan [facility] [place] [facility] [address] [place] [address] 09/11/2020 10:30:20 09/11/2020 11:53:48 Acute periodontal abscess 22074981 K05.219 Acute. Initial Encounter. Not controlled . Will add Augmentin 875-125 BID x 10 days. (No CKD per pt) Continue Clindamyci n as directed. She is taking probiotics already. Discussed new medication , possible side effects, and risk of CDiff with Clinda as well as other abx. Tramadol offers good pain control. I will send refill until she can f/u with PCP up [place]. She is encouraged to see a dentist in [place] prior to flying back next week. She will call Dr. Melo who she has seen previously . She may need to have this drained. Soft foods only. Tylenol/Mo addis for pain prn. every 6 hours. ER for acute changes Chronic back pain 698752 002 G89.29 Chronic, controlled with Tramadol, stable F/U with PCP up [place] [facility] Concerns Section Related Observation LastModified by Organization Detai ls LastModified Time None Recorded Concern Status LastModified by Organization Details LastModified Time None Recorded Advance Directives Directive None Recorded Payers Insurance Date Sequence Insurance Name Policy Number Policy Walls Covered Member ID Walls Member ID Guarantor Name 11/11/2020 2 [place]: [facility] Coleen Polo 1 1 Coleen Polo 05/17/2021 1 [place] Coleen Polo [id number] Coleen Polo Notes Date Note Type [...] have you received? 2 doses Imported from [employer] on 09/11/2020 60yo F c/o left lower [...] fever/chills or other symptoms. Jennie Williamson MD [address] [address], [place], [address], [facility], [facility] 09/11/2020 21:53:38 OBGyn Episode No OBEpisode recorded.
--- OUTSIDE RECORDS SUMMARY | 2025-03-20 16:49 | XMS_ITS | Encounter Summary ---
Author Organization [employer] Address [address] [place] [address] [place] [address] Care Team Providers Care Automation Machine Operator Name Role Phone Name, Rock DE PAZ Primary Care Provider [phone] Reason for Visit * Reason Comments Med Refill Encounter Details Date Type Department Care Team ([facility] st Contact Info) Description 09/15/2024 Refill [facility] [address] [place], [place] [phone] Name, MD Rock [address] [place] [address] Hypophosphatemia Social History Tobacco Use Types Packs/Day [...] Description 05/28/2025 3:30 PM EST Office Visit [facility] [address] [place] [address] Name, MD Rock [address] [place] [address] documented as of this encounter Visit Diagnoses Diagnosis Hypophosphatemia Disorders of phosphorus metabolism documented in this encounter Additional Health Concerns Assessment Noted Time PHQ-9 Depression Total Score: 17 025 2:50 PM EST documented as of this encounter Care Teams Automation Machine Operator Relationship Specialty Start Date End Date Name, MD Rock [address] [place] [address] PCP - General Family Medicine 07/04/15 documented as of this encounter
--- OUTSIDE RECORDS SUMMARY | 2025-03-20 16:49 | XMS_ITS | Encounter Summary ---
Author Organization [employer] Address [address] [place] [address] Care Team Providers Care Negative Developer Name Role Phone Name, Rock DE PAZ Primary Care Provider [phone] Reason for Visit * Reason Comments Med Refill Encounter Details Date Type Department Care Team (Late st Contact Info) Description 09/21/2022 Refill [facility] [address] [place] [address] Name, MD Rock [address] [place] [address] Insomnia, unspecified type; Pain Social History Tobacco [...] Upcoming Encounters Date Type Department Care Team ([facility] Contact Info) Description 05/28/2025 3:30 PM EST Office Visit [facility] [address] [place] [address] Name, MD Rock [address] [place] [address] documented as of this encounter Visit Diagnoses Diagnosis Insomnia, unspecified type Pain Generalized pain documented in this encounter Care Teams Negative Developer Relationship Specialty Start Date End Date Name, MD Rock [address] [place] [address] PCP - General Family Medicine 07/04/15 documented as of this encounter
--- OUTSIDE RECORDS SUMMARY | 2025-03-20 16:49 | XMS_ITS | Encounter Summary ---
Author Organization [employer] Address [address] [place] [address] Care Team Providers Care Winch Runner Name Role Phone NameRock MD Primary Care Provider Encounter Details Date Type Department Care Team ([facility] Contact Info) Description 09/14/2022 Abstract [facility] [address] [place] [address] NameRock MD [address] [place] [address] Social History Tobacco Use Types Packs/Day Years [...] Team ([facility] Contact Info) Description 05/28/2025 3:30 PM EST Office Visit [address] [address] NameRock MD [address] [place] [address] documented as of this encounter Procedures Procedure [...] on filedocumented in this encounter Care Teams Winch Runner Relationship Specialty Start Date End Date Name, [place] [address] PCP - General Family Medicine 07/04/15 documented as of this encounter
--- OUTSIDE RECORDS SUMMARY | 2025-03-20 16:49 | XMS_ITS | Encounter Summary ---
Author Organization [employer] Address [address] [place] [address] Care Team Providers Care Offender Employment Specialist Name Role Phone Name, Rock DE PAZ Primary Care Provider [phone] Encounter Details Date Type Department Care Team (Late st Contact Info) Description 04/30/2022 Orders Only [facility] MED & PEDS [address] [place] [address] Cheyenne Sánchez LPN Social History Tobacco Use [...] Department Care Team (Late Contact Info) Description 05/28/2025 3:30 PM EST Office Visit [facility] MEDICINE [address] [place] [address] Name, MD Rock [address] [place] [address] documented as of this encounter Procedures Procedure [...] N Telopetide (NTx) 50 see note [facility] Comment:Result Units: nM BCE /mM creatPremenopausal Females: 4 - 64 nM BCE/mM creatResults are primarily used for monitoring theresponse to therapy. A value within thepremenopausal range does not rule out osteoporosisnor the need for therapyUnits of Measure: nM BCE/mM creat CREATININE, RANDOM URINE 114 20 - 275 mg/dL [facility] Comment:THIS TEST WAS PERFOR MED AT:[id number] [place] [address]PZZQCGDCARMELITA WRIGHT MD,PHD 05/04/2022 3:06 PM EST 05/04/2022 3:22 PM EST [facility] External Provider LAB URI NE ORDERABLES Final Result Performing Organization Address [facility]/ZIP Co de Phone Number [facility] [address] [place] [phone] * Protein Electrophoresis and [place]/Lambda Light Chains (05/04/2022 2:30 PM EST) Prot Elec - Total Protein 7.0 6.1 - 8.1 g/dL [facility] Prot Elec - Albumin 4.2 3.8 - 4.8 g/dL [facility] Prot Elec - Alpha1 0.3 0.2 - 0.3 g/dL [facility] Prot Elec - Alpha2 0.8 0.5 - 0.9 g/dL [facility] Prot Elec - Beta 1 0.6 0.4 - 0.6 g/dL [facility] Prot Elec - Beta 2 0.3 0.2 - 0.5 g/dL [facility] Prot Elec - Gamma 0.8 0.8 - 1.7 g/dL [facility] PES - Abn Protein Band 1 [facility] PES-Abn Protein Band 2 [facility] PES-Abn Protein Band 3 [facility] Prot Elec - Interpretation SEE NOTE [facility] Comment:Normal Electrophoret ic PatternTHIS TEST WAS PERFORMED AT:[facility] [address] ([place], [place] [address]NYVIWNANCY ADKINS MD 05/04/2022 2:30 PM EST 05/04/2022 2:33 PM EST [facility] External Provider LAB BLO OD ORDERABLES Final Result Performing Organization Address [facility] Co de Phone Number [facility] [address] [place] [phone] * Alkaline Phosphatase, Bone Specific (05/04/2022 2:30 PM EST) Alkaline Phosphatase, Bone Specific 11.6 5.6 - 29.0 mcg/L [facility] Comment:Reference Range, Pre menopausal (mcg/L) 35-45 years 5.0-18.2THIS TEST WAS PERFORMED AT:[id number] [place] [address]LJGGRFKCARMELITA WRIGHT MD,PHD 05/04/2022 2:30 PM EST 05/04/2022 2:33 PM EST [facility] External Provider LAB BLO OD ORDERABLES Final Result Performing Organization Address [facility] Co de Phone Number [facility] [address] [place] [phone] * Thyroid Peroxidase And Thyroglobulin Antibodies (05/04/2022 2:30 PM EST) Pathologist [facility] Thyroglobulin Antibodies <1 < or = 1 IU/mL [facility] Comment:THIS TEST WAS PERFOR MED AT:[facility] [address] ([address], [place] [address]FAUNINANCY ADKINS MD 05/04/2022 2:30 PM EST 05/04/2022 2:33 PM EST [facility] External Provider LAB BLO OD ORDERABLES Final Result Performing Organization Address [facility] Co de Phone Number [facility] [address] [place] [phone] * (ABNORMAL) Thyroglobulin, LC/MS/MS (05/04/2022 2:30 PM EST) Pathologist [facility] Thyroglobulin, LC/MS/MS <0.1(A) ng/mL [facility] Comment:Reference Range: Int act Thyroid 2.8-40.9 Athyrotic <0.1 Note: Abnormal flagging is based on the reference interval for patients with intact thyroid.This test was performed using the Other Machine Coulterchemiluminescent method. Values obtained fromdifferent assay methods cannot be usedinterchangeably. Thyroglobulin levels, regardlessof value, should not be interpreted as absoluteevidence of the presence or absence of disease. Thyroglobulin Comment See Below [facility] Comment:Thyroglobulin antibo dies (TGAB) interfere withthyroglobulin (TG) assays; therefore, TGAB assayshould always be performed in conjunction with aTG assay.For additional information, please refer tohttp://education.[employer]/faq/USE890(This link is being provided for informational/educational purposes only.)THIS TEST WAS PERFORMED AT:[facility] [place] [address] ([facility] [address]EBYSCNANCY ADKINS MD 05/04/2022 2:30 PM EST 05/04/2022 2:33 PM EST [facility] External Provider LAB BLO OD ORDERABLES Final Result [facility] [address] [place] [phone] * PTH, Intact Without Calcium (05/04/2022 2:30 PM EST) PTHI 73 16 - 77 pg/mL [facility] Comment:Interpretive Guide I ntact PTH Calcium -------Normal Parathyroid Normal NormalHypoparathyroidism Low or Low Normal LowHyperparathyroidism Primary Normal or High High Secondary High Normal or Low Tertiary High HighNon-Parathyroid Hypercalcemia Low or Low Normal High Calcium (PTHI) 8.9 8.6 - 10.4 mg/dL [facility] Comment:THIS TEST WAS PERFOR MED AT:[employer] [place] [address] ([facility])[place] [address]LDBWJMAC ADKINS MD 05/04/2022 2:30 PM EST 05/04/2022 2:33 PM EST [facility] External Provider LAB BLO OD ORDERABLES Final Result Performing Organization Address [facility] de Phone Number [facility] [address] [place] [phone] * TSH (05/04/2022 2:30 PM EST) Thyroid Stimulating Hormone 3.46 0.32 - 4.0 uIU/mL [facility] Comment:Note: A sustained TS H level above 2.5 uIU/mL may warrant further investigation. TSH 3rd Generation ([facility]) 05/04/2022 2:30 PM EST 05/04/2022 2:33 PM EST [facility] External Provider LAB BLO OD ORDERABLES Final Result Performing Organization Address [facility] [place] Number [facility] [address] [place] [phone] * T4, Free (05/04/2022 2:30 PM EST) Free T4 (Free Thyroxine) 1.14 0.71 - 1.85 ng/dL [facility] 05/04/2022 2:30 PM EST 05/04/2022 2:33 PM EST [facility] External Provider LAB BLO OD ORDERABLES Final Result Performing Organization Address [facility] de Phone Number [facility] [address] [place] [phone] * Vitamin D, 25-Hydroxy, Total, Immunoassay (05/04/2022 2:30 PM EST) Vitamin D 25-OH Total 25.8 >30 ng/mL [facility] Comment:Health Based Referen ce Values*< 20 ng/mL [id number] ng/mL Insufficient> 30 ng/mL Sufficient*Elver KRUSE. N [...] 2:30 PM EST 05/04/2022 2:33 PM EST [facility] External Provider LAB BLO OD ORDERABLES Final Result Performing Organization Address [facility]/ZIP Co de Phone Number [facility] [address] [place] [phone] * Phosphate (As Phosphorus) (05/04/2022 2:30 PM EST) Phosphorus 3.0 2.7 - 4.5 mg/dL [facility] 05/04/2022 2:30 PM EST 05/04/2022 2:33 PM EST [facility] External Provider LAB BLO OD ORDERABLES Final Result Performing Organization Address [facility] de Phone Number [facility] [address] [place] [phone] * Comprehensive Metabolic Panel (05/04/2022 2:30 PM EST) Sodium 138 135 - 145 mmol/L [facility] Potassium 4.8 3.3 - 5.1 mmol/L [facility] Chloride 106 96 - 108 mmol/L [facility] Carbon Dioxide 24 22 - 29 mmol/L [facility] Anion Gap 13 12 - 20 [facility] Urea Nitrogen (BUN) 15 9 - 16 mg/dL [facility] Creatinine, Serum 0.85 0.5 - 1.4 mg/dL [facility] Estimated Glomerular Filt Rate >60 [facility] Comment:NOTE: For -Am erican individuals, multiply the result by 1.210.Chronic Kidney Disease: Estimated GFR < 60 mL/min/1.85f9Flujru Kidney Disease: Estimated GFR < 15 mL/min/1.73m2 Glucose 90 60 - 115 mg/dL [facility] Calcium 9.0 8.4 - 10.2 mg/dL [facility] Bilirubin, Total 0.3 0.0 - 1.0 mg/dL [facility] Aspartate Amino Transferase 26 5 - 31 U/L [facility] Alanine Aminotransferase 28 0 - 31 U/L [facility] Total Protein 6.8 6.5 - 8.0 g/dL [facility] Albumin Level 4.2 3.5 - 5.0 g/dL [facility] Alkaline Phosphatase 61 39 - 117 U/L [facility] 05/04/2022 2:30 PM EST 05/04/2022 2:33 PM EST us [facility] External Provider LAB BLO OD ORDERABLES Final Result [facility] [address] [place] [phone] documented in this encounter Visit Diagnoses Not on filedocumented in this encounter Care Teams Offender Employment Specialist Relationship Specialty Start Date End Date Name, MD Rock [address] [place] [address] PCP - General Family Medicine 07/04/15 documented as of this encounter
--- OUTSIDE RECORDS SUMMARY | 2025-03-20 16:49 | XMS_ITS | Encounter Summary ---
Author Organization [employer] Address [address] [place] [address] Care Team Providers Care Care Support Representative Name Role Phone Name, Rock DE PAZ Primary Care Provider [phone] Reason for Visit * Reason Onset Date Comments Med Refill 06/14/2024 Encounter Details Date Type Department Care Team (Late st Contact Info) Description 06/14/2024 Refill [facility] [address] [place], [place] [phone] Name, MD Rock [address] [place] [address] Chronic pain syndrome Social History Tobacco Use [...] Visit [facility] MEDICINE [address] [place] [address] NameRock MD [address] [place] [address] documented as of this encounter Visit Diagnoses Diagnosis Chronic pain syndrome documented in this encounter Additional Health Concerns Assessment Noted Time PHQ-9 Depression Total Score: 17 025 2:50 PM EST documented as of this encounter Care Teams Care Support Representative Relationship Specialty Start Date End Date NameRock MD [address] [place] [address] PCP - General Family Medicine 07/04/15 documented as of this encounter
--- OUTSIDE RECORDS SUMMARY | 2025-03-20 16:49 | XMS_ITS | Encounter Summary ---
Author Organization [employer] Address [address] [place] [address] Care Team Providers Care Skip Pitman Name Role Phone Name, Rock DE PAZ Primary Care Provider [phone] Reason for Visit * Reason Comments Med Refill Encounter Details Date Type Department Care Team ([facility] Contact Info) Description 09/16/2022 Refill [facility]ICINE [address] [place] [address] [phone] Name, MD Rock [address] [place] [address] Chronic pain syndrome Social History Tobacco Use [...] Upcoming Encounters Date Type Department Care Team ([facility] Contact Info) Description 05/28/2025 3:30 PM EST Office Visit [facility] [address] [place] [phone] Name, MD Rock [address] [place] [address] documented as of this encounter Visit Diagnoses Diagnosis Chronic pain syndrome documented in this encounter Care Teams Skip Pitman Relationship Specialty Start Date End Date Name, [place] [address] PCP - General Family Medicine 07/04/15 documented as of this encounter
--- OUTSIDE RECORDS SUMMARY | 2025-03-20 16:49 | XMS_ITS | Encounter Summary ---
Author Organization [employer] Address [address] [place] [address] Care Team Providers Care Back Stayer Name Role Phone Name, Rock DE PAZ Primary Care Provider [phone] Reason for Visit * Reason Onset Date Comments Med Refill 03/20/2025 Encounter Details Date Type Department Care Team (Late st Contact Info) Description 03/19/2025 Refill [facility] [address] [place], [place] [phone] Name, MD Rock [address] [place] [address] Insomnia, unspecified type Social History Tobacco Use [...] Description 05/28/2025 3:30 PM EST Office Visit [facility] MED[facility]INE [address] [place] [address] NameRock MD [address] [place] [address] documented as of this encounter Visit Diagnoses Diagnosis Insomnia, unspecified type documented in this encounter Additional Health Concerns Assessment Noted Time PHQ-9 Depression Total Score: 17 025 2:50 PM EST documented as of this encounter Care Teams Back Stayer Relationship Specialty Start Date End Date Name, MD Rock [address] [place] [address] PCP - General Family Medicine 07/04/15 documented as of this encounter
--- OUTSIDE RECORDS SUMMARY | 2025-03-20 16:49 | XMS_ITS | Encounter Summary ---
Author Organization [employer] Address [address] [place] [address] Care Team Providers Care Industrial Machine Operator Name Role Phone Name, Rock DE PAZ Primary Care Provider Reason for Visit * Reason Comments Med Refill Encounter Details Date Type Department Care Team (Late st Contact Info) Description 04/08/2022 Refill [facility] MED & PEDS [address] [place] [address] Yoni Mccormick MD [address] [place] [address] [phone] Social History Tobacco Use Types Packs/Day Years [...] Description 05/28/2025 3:30 PM EST Office Visit [facility] [address] [place] [address] [phone] Rock Rodrigues MD [address] [place] [address] documented as of this encounter Visit Diagnoses Not on filedocumented in this encounter Care Teams Industrial Machine Operator Relationship Specialty Start Date End Date NameRock MD [address] [place] [address] PCP - General Family Medicine 07/04/15 documented as of this encounter
--- OUTSIDE RECORDS SUMMARY | 2025-03-20 16:49 | XMS_ITS | Encounter Summary ---
Author Organization [employer] Address [address] [place] [address] 7 [place] [address] Care Team Providers Care Presales Senior Specialist Name Role Phone Name, Rock DE PAZ Primary Care Provider [phone] Encounter Details Date Type Department Care Team (Late st Contact Info) Description 11/24/2023 Abstract [facility] [address] [place], [place] [phone] Name, MD Rock [address] [place] [address] Social History Tobacco Use Types Packs/Day Years [...] Description 05/28/2025 3:30 PM EST Office Visit [facility] [address] [place] [address] Name, MD Rock [address] [place] [address] documented as of this encounter Procedures Procedure [...] documented as of this encounter Care Teams Presales Senior Specialist Relationship Specialty Start Date End Date Name, MD Rock [address] [place] [address] PCP - General Family Medicine 07/04/15 documented as of this encounter
--- OUTSIDE RECORDS SUMMARY | 2025-03-20 16:49 | XMS_ITS | Encounter Summary ---
Author Organization [employer] Address [address] [place] [address] [place] [address] Care Team Providers Care Bolt Maker Name Role Phone Name, Rock DE PAZ Primary Care Provider [phone] Reason for Visit * Reason Comments Med Refill Encounter Details Date Type Department Care Team ([facility] st Contact Info) Description 07/31/2024 Refill [facility] MEDICINE [address] [place], [place] [phone] Name, MD Rock [address] [place] [address] Chronic pain syndrome Social History Tobacco Use [...] Description 05/28/2025 3:30 PM EST Office Visit [facility] MEDICINE [address] [place] [phone] Name, MD Rock [address] [place] [address] documented as of this encounter Visit Diagnoses Diagnosis Chronic pain syndrome documented in this encounter Additional Health Concerns Assessment Noted Time PHQ-9 Depression Total Score: 17 025 2:50 PM EST documented as of this encounter Care Teams Bolt Maker Relationship Specialty Start Date End Date NameRock MD [address] [place] [address] PCP - General Family Medicine 07/04/15 documented as of this encounter
--- OUTSIDE RECORDS SUMMARY | 2025-03-20 16:49 | XMS_ITS | Encounter Summary ---
Author Organization [employer] Address [address] [place] [address] Care Team Providers Care Certified Anesthesiologist Assistant Name Role Phone Name, Rock DE PAZ Primary Care Provider Reason for Visit * Reason Onset Date Comments Med Refill 08/01/2024 Encounter Details Date Type Department Care Team (Late st Contact Info) Description 08/01/2024 Refill [facility] MED[facility]INE [address] [place], [place] [phone] Name, MD Rock [address] [place] [address] Chronic pain syndrome Social History Tobacco Use [...] Description 05/28/2025 3:30 PM EST Office Visit [facility] MEDICINE [address] [place] [phone] NameRock MD [address] [place] [address] documented as of this encounter Visit Diagnoses Diagnosis Chronic pain syndrome documented in this encounter Additional Health Concerns Assessment Noted Time PHQ-9 Depression Total Score: 17 025 2:50 PM EST documented as of this encounter Care Teams Certified Anesthesiologist Assistant Relationship Specialty Start Date End Date NameRock MD [address] [place] [address] PCP - General Family Medicine 07/04/15 documented as of this encounter
--- OUTSIDE RECORDS SUMMARY | 2025-03-20 16:49 | XMS_ITS | Encounter Summary ---
Author Organization [employer] Address [address] [place] [address] [place] [address] Care Team Providers Care Cane Burner Name Role Phone Name, Rock DE PAZ Primary Care Provider [phone] Reason for Visit * Reason Onset Date Comments Med Refill 01/23/2025 Encounter Details Date Type Department Care Team (Late st Contact Info) Description 01/23/2025 Refill [facility] MEDICINE [address] [place], [place] [phone] Name, MD Rock [address] [place] [address] Social History Tobacco Use Types Packs/Day Years [...] Description 05/28/2025 3:30 PM EST Office Visit [facility] MEDICINE [address] [place] [phone] NameRock MD [address] [place] [address] documented as of this encounter Visit Diagnoses Not on filedocumented in this encounter Additional Health Concerns Assessment Noted Time PHQ-9 Depression Total Score: 17 025 2:50 PM EST documented as of this encounter Care Teams Cane Burner Relationship Specialty Start Date End Date NameRock MD [address] [place] [address] PCP - General Family Medicine 07/04/15 documented as of this encounter
--- OUTSIDE RECORDS SUMMARY | 2025-03-20 16:49 | XMS_ITS | Encounter Summary ---
Author Organization [employer] Address [address] [place] [address] 7 [place] [address] Care Team Providers Care Lumber Stacker Driver Name Role Phone Name, Rock DE APZ Primary Care Provider [phone] Reason for Visit * Reason Onset Date Comments Medication Question 05/31/2023 Encounter Details Date Type Department Care Team ([facility] st Contact Info) Description 05/31/2023 Telephone [facility] [address] [place], [place] [phone] Name, MD Rock 230 [place] [address] Medication Question Social History Tobacco Use Types [...] a week . pt. Advised to call Electric Wel[employer] because medication was prescribe by Electric Welder Helper. Pt. States real estate subagent also prescribe blood works before prescribing these medication, but as per pt. PCP is managing kidney related function and low phosphorus so want to discuss about these medication. Pt. Advised that message will be sent to PCP for review. Please review and advise. Tc from pt requesting to speak with provider in regards to two medications that are being offered by the Electric Welder Helper which are Pimwall which has to be injected every single day and Levaradi which is once a week . Pt would like to discuss this with PCP or nurse to verify if it's okay and which medication should she go for due to her medical History. Please contact pt @ [phone] * Telephone Encounter - Esperanza Bravo - 05/31/2023 2:02 PM EST Tc from pt requesting to speak with provider in regards to two medications that are being offered by the [employer] which are Pimwall which has to be injected every single day and Levaradi whichis once a week . Pt would like to discuss this with PCP or nurse to verify if it's okay and which medication should she go for due to her medical History. Please contact pt @ [phone] documented in this encounter Plan of Treatment Upcoming Encounters Date Type Department Care Team (Late st Contact Info) Description 05/28/2025 3:30 PM EST Office Visit [facility] 230 [place] [address] Name, MD Rock [address] [place] [address] documented as of this encounter Visit Diagnoses Not on filedocumented in this encounter Additional Health Concerns Assessment Noted Time PHQ-9 Depression Total Score: 21 023 10:14 AM EDT documented as of this encounter Care Teams Lumber Stacker Driver Relationship Specialty Start Date End Date Name, MD Rock [address] [place] [address] PCP - General Family Medicine 07/04/15 documented as of this encounter
--- OUTSIDE RECORDS SUMMARY | 2025-03-20 16:49 | XMS_ITS | Encounter Summary ---
Author Organization [employer] Address [address] [place] [address] Care Team Providers Care Ammunition Assembly Ii Laborer Name Role Phone Name, Rock DE PAZ Primary Care Provider [phone] Reason for Visit * Reason Onset Date Comments Med Refill 09/15/2024 Encounter Details Date Type Department Care Team (Late st Contact Info) Description 09/15/2024 Refill [facility] MED[facility] 230 [place], [place] [phone] Name, MD Rock 230 [place] [address] Hypophosphatemia Social History Tobacco Use Types Packs/Day [...] Description 05/28/2025 3:30 PM EST Office Visit [facility] 230 [place] [address] Name, MD Rock [address] [place] [address] documented as of this encounter Visit Diagnoses Diagnosis Hypophosphatemia Disorders of phosphorus metabolism documented in this encounter Additional Health Concerns Assessment Noted Time PHQ-9 Depression Total Score: 17 025 2:50 PM EST documented as of this encounter Care Teams Ammunition Assembly Ii Laborer Relationship Specialty Start Date End Date Name, MD Rock [address] [place] [address] PCP - General Family Medicine 07/04/15 documented as of this encounter
--- OUTSIDE RECORDS SUMMARY | 2025-03-20 16:49 | XMS_ITS | Encounter Summary ---
Author Organization [employer] Address [address] [place] [address] Care Team Providers Care Civil Engineering Teacher Name Role Phone Name, Rock DE PAZ Primary Care Provider [phone] Reason for Visit * Reason Onset Date Comments Med Refill 06/03/2024 Encounter Details Date Type Department Care Team (Late st Contact Info) Description 06/03/2024 Refill [facility] 230 [place], [place] [phone] Name, MD Rock 230 [place] [address] Hypophosphatemia Social History Tobacco Use Types Packs/Day [...] Description 05/28/2025 3:30 PM EST Office Visit [facility] MED[facility]INE 230 [place] [address] Name, MD Rock 230 [place] [address] documented as of this encounter Visit Diagnoses Diagnosis Hypophosphatemia Disorders of phosphorus metabolism documented in this encounter Additional Health Concerns Assessment Noted Time PHQ-9 Depression Total Score: 17 025 2:50 PM EST documented as of this encounter Care Teams Civil Engineering Teacher Relationship Specialty Start Date End Date Name, MD Rock [address] [place] [address] PCP - General Family Medicine 07/04/15 documented as of this encounter
--- OUTSIDE RECORDS SUMMARY | 2025-03-20 16:49 | XMS_ITS | Encounter Summary ---
Author Organization [employer] Address [address] [place] [address] Care Team Providers Care Sleep Medicine Physician Name Role Phone Name, Rock DE PAZ Primary Care Provider [phone] Reason for Visit * Reason Onset Date Comments Med Refill 06/16/2024 Encounter Details Date Type Department Care Team (Late st Contact Info) Description 06/16/2024 Refill [facility] MEDICINE 230 [place], [place] [phone] Name, MD Rock 230 [place] [address] Chronic pain syndrome Social History Tobacco Use [...] Description 05/28/2025 3:30 PM EST Office Visit [facility] MEDICINE [address] [place] [address] NameRock MD [address] [place] [address] documented as of this encounter Visit Diagnoses Diagnosis Chronic pain syndrome documented in this encounter Additional Health Concerns Assessment Noted Time PHQ-9 Depression Total Score: 17 025 2:50 PM EST documented as of this encounter Care Teams Sleep Medicine Physician Relationship Specialty Start Date End Date NameRock MD [address] [place] [address] PCP - General Family Medicine 07/04/15 documented as of this encounter
--- OUTSIDE RECORDS SUMMARY | 2025-03-20 16:49 | XMS_ITS | Encounter Summary ---
Author Organization [employer] Address [address] [place] [address] [place] [address] Care Team Providers Care Seamer Name Role Phone Name, Rock DE PAZ Primary Care Provider [phone] Reason for Visit * Reason Comments Med Refill Encounter Details Date Type Department Care Team ([facility] st Contact Info) Description 03/19/2025 Refill [facility] MEDICINE 230 [place], [place] [phone] Name, MD Rock 230 [place] [address] Insomnia, unspecified type; Chronic pain syndrome Social History Tobacco Use [...] Description 05/28/2025 3:30 PM EST Office Visit [facility] MEDICINE [address] [place] [address] NameRock MD 230 [place] [address] documented as of this encounter Visit Diagnoses Diagnosis Insomnia, unspecified type Chronic pain syndrome documented in this encounter Additional Health Concerns Assessment Noted Time PHQ-9 Depression Total Score: 17 025 2:50 PM EST documented as of this encounter Care Teams Seamer Relationship Specialty Start Date End Date Name, MD Rock [address] [place] [address] PCP - General Family Medicine 07/04/15 documented as of this encounter
--- OUTSIDE RECORDS SUMMARY | 2025-03-20 16:49 | XMS_ITS | Encounter Summary ---
Author Organization [employer] Address [address] [place] [address] Care Team Providers Care Numerical Control Operator Name Role Phone Name, Rock DE PAZ Primary Care Provider Reason for Visit * Reason Onset Date Comments Med Refill 06/14/2024 Encounter Details Date Type Department Care Team (Late st Contact Info) Description 06/14/2024 Refill [facility] MEDICINE 230 [place], [place] [phone] Name, MD Rock 230 [place] [address] Chronic pain syndrome Social History Tobacco Use [...] EST Office Visit [facility] MEDICINE [address] [place] [address] NameRock MD [address] [place] [address] documented as of this encounter Visit Diagnoses Diagnosis Chronic pain syndrome documented in this encounter Additional Health Concerns Assessment Noted Time PHQ-9 Depression Total Score: 17 025 2:50 PM EST documented as of this encounter Care Teams Numerical Control Operator Relationship Specialty Start Date End Date NameRock MD [address] [place] [address] PCP - General Family Medicine 07/04/15 documented as of this encounter
--- OUTSIDE RECORDS SUMMARY | 2025-03-20 16:49 | XMS_ITS | Encounter Summary ---
Author Organization [employer] Address [address] [place] [address] Care Team Providers Care Manager Continuous Improvement Name Role Phone Name, Rock DE PAZ Primary Care Provider [phone] Reason for Visit * Reason Onset Date Comments Med Refill 02/20/2025 Encounter Details Date Type Department Care Team (Late st Contact Info) Description 02/20/2025 Refill [facility] MEDICINE 230 [place], [place] [phone] Name, MD Rock [address] [place] [address] Insomnia, unspecified type Social History Tobacco Use [...] Description 05/28/2025 3:30 PM EST Office Visit [facility] MEDICINE [address] [place] [address] NameRock MD [address] [place] [address] documented as of this encounter Visit Diagnoses Diagnosis Insomnia, unspecified type documented in this encounter Additional Health Concerns Assessment Noted Time PHQ-9 Depression Total Score: 17 025 2:50 PM EST documented as of this encounter Care Teams Manager Continuous Improvement Relationship Specialty Start Date End Date Name, MD Rock [address] [place] [address] PCP - General Family Medicine 07/04/15 documented as of this encounter
--- OUTSIDE RECORDS SUMMARY | 2025-03-20 16:49 | XMS_ITS | Encounter Summary ---
Author Organization [employer] Address [address] [place] [address] [place] [address] Care Team Providers Care Case Finisher Name Role Phone Name, Rock DE PAZ Primary Care Provider [phone] Reason for Visit * Reason Comments Med Refill Encounter Details Date Type Department Care Team ([facility] st Contact Info) Description 09/11/2024 Refill [facility] MEDICINE 230 [place], [place] [phone] Name, MD Rock 230 [place] [address] Hypophosphatemia Social History Tobacco Use Types Packs/Day [...] Description 05/28/2025 3:30 PM EST Office Visit [facility] MEDICINE [address] [place] [address] Name, MD Rock 230 [place] [address] documented as of this encounter Visit Diagnoses Diagnosis Hypophosphatemia Disorders of phosphorus metabolism documented in this encounter Additional Health Concerns Assessment Noted Time PHQ-9 Depression Total Score: 17 025 2:50 PM EST documented as of this encounter Care Teams Case Finisher Relationship Specialty Start Date End Date Name, MD Rock [address] [place] [address] PCP - General Family Medicine 07/04/15 documented as of this encounter
--- OUTSIDE RECORDS SUMMARY | 2025-03-20 16:49 | XMS_ITS | Encounter Summary ---
Author Organization [employer] Address [address] [place] [address] [place] [address] Care Team Providers Care Travel Assistant Name Role Phone Name, Rock DE PAZ Primary Care Provider [phone] Reason for Visit * Reason Comments Med Refill Encounter Details Date Type Department Care Team ([facility] st Contact Info) Description 08/22/2024 Refill [facility] MEDICINE 230 [place], [place] [phone] Name, MD Rock 230 [place] [address] Chronic pain syndrome Social History Tobacco Use [...] Description 05/28/2025 3:30 PM EST Office Visit [facility] MEDICINE [address] [place] [address] Name, MD Rock 230 [place] [address] documented as of this encounter Visit Diagnoses Diagnosis Chronic pain syndrome documented in this encounter Additional Health Concerns Assessment Noted Time PHQ-9 Depression Total Score: 17 025 2:50 PM EST documented as of this encounter Care Teams Travel Assistant Relationship Specialty Start Date End Date NameRock MD [address] [place] [address] PCP - General Family Medicine 07/04/15 documented as of this encounter
--- OUTSIDE RECORDS SUMMARY | 2025-03-20 16:49 | XMS_ITS | Encounter Summary ---
Author Organization [employer] Address [address] [place] [address] 7 [place] [address] Care Team Providers Care Event Organizer Name Role Phone Name, Rock DE PAZ Primary Care Provider [phone] Reason for Visit * Reason Comments Med Refill Encounter Details Date Type Department Care Team (Late st Contact Info) Description 03/04/2023 Refill [facility] MEDICINE 230 [place] [address] Christine Doe FNP Social History Tobacco Use [...] 3:30 PM EST Office Visit [facility] MEDICINE [address] [place] [address] Name, MD Rock [address] [place] [address] documented as of this encounter Visit Diagnoses Not on filedocumented in this encounter Additional Health Concerns Assessment Noted Time PHQ-9 Depression Total Score: 21 023 10:14 AM EDT documented as of this encounter Care Teams Event Organizer Relationship Specialty Start Date End Date Name, MD Rock [address] [place] [address] PCP - General Family Medicine 07/04/15 documented as of this encounter
--- OUTSIDE RECORDS SUMMARY | 2025-03-20 16:49 | XMS_ITS | Encounter Summary ---
Author Organization [employer] Address [address] [place] [address] 7 [place] [address] Care Team Providers Care Uranium Processing Supervisor Name Role Phone NameRock MD Primary Care Provider [phone] Reason for Visit * Reason Comments Med Refill Encounter Details Date Type Department Care Team ([facility] st Contact Info) Description 11/29/[address] [facility] [address] [place] [address] [phone] Name, MD Rock [address] [place] [address] Chronic pain syndrome Social History Tobacco Use [...] Description 05/28/2025 3:30 PM EST Office Visit [facility] MEDICINE [address] [place] [address] Name, MD Rock 230 [place] [address] documented as of this encounter Visit Diagnoses Diagnosis Chronic pain syndrome documented in this encounter Additional Health Concerns Assessment Noted Time PHQ-9 Depression Total Score: 12 024 2:16 PM EDT documented as of this encounter Care Teams Uranium Processing Supervisor Relationship Specialty Start Date End Date NameRock MD [address] [place] [address] PCP - General Family Medicine 07/04/15 documented as of this encounter
--- OUTSIDE RECORDS SUMMARY | 2025-03-20 16:49 | XMS_ITS | Encounter Summary ---
Author Organization [employer] Address [address] [place] [address] Care Team Providers Care Administrative Services Specialist Name Role Phone Name, Rock DE PAZ Primary Care Provider [phone] Reason for Visit * Reason Onset Date Comments Med Refill 09/10/2024 Encounter Details Date Type Department Care Team (Late st Contact Info) Description 09/10/2024 Refill [facility] MEDICINE 230 [place], [place] [phone] Name, MD Rock 230 [place] [address] Hypophosphatemia Social History Tobacco Use Types Packs/Day [...] Description 05/28/2025 3:30 PM EST Office Visit [facility] MEDICINE 230 [place] [address] Name, MD Rock [address] [place] [address] documented as of this encounter Visit Diagnoses Diagnosis Hypophosphatemia Disorders of phosphorus metabolism documented in this encounter Additional Health Concerns Assessment Noted Time PHQ-9 Depression Total Score: 17 025 2:50 PM EST documented as of this encounter Care Teams Administrative Services Specialist Relationship Specialty Start Date End Date Name, MD Rock [address] [place] [address] PCP - General Family Medicine 07/04/15 documented as of this encounter
--- OUTSIDE RECORDS SUMMARY | 2025-03-20 16:49 | XMS_ITS | Encounter Summary ---
Author Organization [employer] Address [address] [place] [address] Care Team Providers Care Rock Crushing Machine Operator Name Role Phone Name, Rock DE PAZ Primary Care Provider [phone] Reason for Visit * Reason Onset Date Comments Med Refill 03/06/2025 Encounter Details Date Type Department Care Team (Late st Contact Info) Description 03/06/2025 Refill [facility] MEDICINE 230 [place], [place] [phone] Name, MD Rock 230 [place] [address] Chronic pain syndrome Social History Tobacco Use [...] 05/28/2025 3:30 PM EST Office Visit [facility] MEDICINE [address] [place] [address] NameRock MD [address] [place] [address] documented as of this encounter Visit Diagnoses Diagnosis Chronic pain syndrome documented in this encounter Additional Health Concerns Assessment Noted Time PHQ-9 Depression Total Score: 17 025 2:50 PM EST documented as of this encounter Care Teams Rock Crushing Machine Operator Relationship Specialty Start Date End Date NameRock MD [address] [place] [address] PCP - General Family Medicine 07/04/15 documented as of this encounter
--- OUTSIDE RECORDS SUMMARY | 2025-03-20 16:49 | XMS_ITS | Encounter Summary ---
Author Organization [employer] Address [address] [place] [address] [place] [address] Care Team Providers Care Physical Damage Appraiser Name Role Phone Name, Rock DE PAZ Primary Care Provider [phone] Reason for Visit * Reason Onset Date Comments Med Refill 11/26/2024 Encounter Details Date Type Department Care Team (Late st Contact Info) Description 11/26/2024 Refill [facility] MEDICINE 230 [place], [place] [phone] Name, MD Rock 230 [place] [address] High cholesterol; Statin intolerance Social History Tobacco [...] PM EST Office Visit [facility] MEDICINE [address] [place] [address] Name, MD Rock 230 [place] [address] documented as of this encounter Visit Diagnoses Diagnosis High cholesterol Pure hypercholesterolemia Statin intolerance documented in this encounter Additional Health Concerns Assessment Noted Time PHQ-9 Depression Total Score: 17 025 2:50 PM EST documented as of this encounter Care Teams Physical Damage Appraiser Relationship Specialty Start Date End Date Name, MD Rock [address] [place] [address] PCP - General Family Medicine 07/04/15 documented as of this encounter
--- OUTSIDE RECORDS SUMMARY | 2025-03-20 16:49 | XMS_ITS | Encounter Summary ---
Author Organization [employer] Address [address] [place] [address] Care Team Providers Care Brake Repair Mechanic Name Role Phone Name, Rock DE PAZ Primary Care Provider [phone] Reason for Visit * Reason Onset Date Comments Med Refill 10/23/2024 Encounter Details Date Type Department Care Team (Late st Contact Info) Description 10/23/2024 Refill [facility] MEDICINE 230 [place], [place] [phone] Name, MD Rock [address] [place] [address] Insomnia, unspecified type Social History Tobacco Use [...] Description 05/28/2025 3:30 PM EST Office Visit [facility] MEDICINE [address] [place] [address] NameRock MD [address] [place] [address] documented as of this encounter Visit Diagnoses Diagnosis Insomnia, unspecified type documented in this encounter Additional Health Concerns Assessment Noted Time PHQ-9 Depression Total Score: 17 025 2:50 PM EST documented as of this encounter Care Teams Brake Repair Mechanic Relationship Specialty Start Date End Date Name, MD Rock [address] [place] [address] PCP - General Family Medicine 07/04/15 documented as of this encounter
--- OUTSIDE RECORDS SUMMARY | 2025-03-20 16:49 | XMS_ITS | Encounter Summary ---
Author Organization [employer] Address [address] [place] [address] 7 [place] [address] Care Team Providers Care Ball Racker Name Role Phone Name, Rock DE PAZ Primary Care Provider [phone] Reason for Visit * Reason Onset Date Comments dec recalls 03/16/2025 Encounter Details Date Type Department Care Team ([facility] st Contact Info) Description 03/16/2025 Telephone [facility] MEDICINE 230 [place] [address] Magdalena Pena MA dec recalls Social History Tobacco Use Types Packs/Day [...] Telephone Encounter - Magdalena Pena MA - 03/16/2025 10:32 AM EST Telephone call to patient to schedule a recall appointment. No answer, unable to leave voicemail (not set up).. Recall letter sent. Visit type: Follow up Appointment notes: HTN Month due: March With: Name Please schedule appointment above if patient returns call documented in this encounter Plan of Treatment Upcoming Encounters Date Type Department Care Team (Late st Contact Info) Description 05/28/2025 3:30 PM EST Office Visit [facility] MEDICINE 230 [place] [address] NameRock MD 230 [place] [address] documented as of this encounter Visit Diagnoses Not on filedocumented in this encounter Additional Health Concerns Assessment Noted Time PHQ-9 Depression Total Score: 17 025 2:50 PM EST documented as of this encounter Care Teams Ball Racker Relationship Specialty Start Date End Date NameRock MD [address] [place] [address] PCP - General Family Medicine 3/10/16 documented as of this encounter
--- OUTSIDE RECORDS SUMMARY | 2025-03-20 16:50 | XMS_ITS | Encounter Summary ---
Author Organization [employer] Address [address] [place] [address] Care Team Providers Care Environmental Director Name Role Phone Name, Rock DE PAZ Primary Care Provider [phone] Reason for Visit * Reason Onset Date Comments Med Refill 03/10/2024 Encounter Details Date Type Department Care Team (Late st Contact Info) Description 03/10/2024 Refill [facility] MEDICINE 230 [place], [place] [phone] Name, MD Rock [address] [place] [address] Hypophosphatemia Social History Tobacco Use Types Packs/Day [...] Description 05/28/2025 3:30 PM EST Office Visit [facility] MEDICINE [address] [place] [address] Name, MD Rokc [address] [place] [address] documented as of this encounter Visit Diagnoses Diagnosis Hypophosphatemia Disorders of phosphorus metabolism documented in this encounter Additional Health Concerns Assessment Noted Time PHQ-9 Depression Total Score: 12 024 2:16 PM EDT documented as of this encounter Care Teams Environmental Director Relationship Specialty Start Date End Date Name, MD Rock [address] [place] [address] PCP - General Family Medicine 07/04/15 documented as of this encounter
--- OUTSIDE RECORDS SUMMARY | 2025-03-20 16:50 | XMS_ITS | Encounter Summary ---
Author Organization [employer] Address [address] [place] [address] Care Team Providers Care Texture Artist Name Role Phone Name, Rock DE PAZ Primary Care Provider [phone] Reason for Visit * Reason Onset Date Comments Med Refill 07/09/2024 Encounter Details Date Type Department Care Team (Late st Contact Info) Description 07/09/2024 Refill [facility] [address] [place], [place] [id number] Name, MD Rock [address] [place] [address] Chronic pain syndrome Social History Tobacco Use [...] Office Visit [facility] [address] [place] [phone] NameRock MD [address] [place] [phone] documented as of this encounter Visit Diagnoses Diagnosis Chronic pain syndrome documented in this encounter Additional Health Concerns Assessment Noted Time PHQ-9 Depression Total Score: 17 025 2:50 PM EST documented as of this encounter Care Teams Texture Artist Relationship Specialty Start Date End Date NameRock MD [address] [place] [phone] PCP - General Family Medicine 07/04/15 documented as of this encounter
--- OUTSIDE RECORDS SUMMARY | 2025-03-20 16:50 | XMS_ITS | Encounter Summary ---
Author Organization [employer] Address [address] [place] [address] [place] [address] Care Team Providers Care Cableman Name Role Phone Name, Rock DE PAZ Primary Care Provider [phone] Reason for Visit * Reason Onset Date Comments Med Refill 02/09/2024 Encounter Details Date Type Department Care Team (Late st Contact Info) Description 02/09/2024 Refill [facility] [address] [place], [place] [phone] Name, MD Rock [address] [place] [address] Social History Tobacco Use Types Packs/Day Years [...] Description 05/28/2025 3:30 PM EST Office Visit [facility] [address] [place] [phone] Name, MD Rock [address] [place] [address] documented as of this encounter Visit Diagnoses Not on filedocumented in this encounter Additional Health Concerns Assessment Noted Time PHQ-9 Depression Total Score: 12 024 2:16 PM EDT documented as of this encounter Care Teams Cableman Relationship Specialty Start Date End Date NameRock MD [address] [place] [phone] PCP - General Family Medicine 07/04/15 documented as of this encounter
--- OUTSIDE RECORDS SUMMARY | 2025-03-20 16:50 | XMS_ITS | Encounter Summary ---
Author Organization [employer] Address [address] [place] [address] Care Team Providers Care Silver Spray Worker Name Role Phone Name, Rock DE PAZ Primary Care Provider [phone] Reason for Visit * Reason Onset Date Comments Med Refill 01/31/2024 Encounter Details Date Type Department Care Team ([facility] st Contact Info) Description 01/31/2024 Refill [facility] [address] [place] [address] Juhi Diaz, INSURANCE CLAIMS REPRESENTATIVE [address] [place] [address] Chronic pain syndrome; Insomnia, unspecified type Social [...] Description 05/28/2025 3:30 PM EST Office Visit [facility] [address] [place] [address] Name, MD Rock [address] [place] [address] documented as of this encounter Visit Diagnoses Diagnosis Chronic pain syndrome Insomnia, unspecified type documented in this encounter Additional Health Concerns Assessment Noted Time PHQ-9 Depression Total Score: 12 024 2:16 PM EDT documented as of this encounter Care Teams Silver Spray Worker Relationship Specialty Start Date End Date NameRock MD [address] [place] [address] PCP - General Family Medicine 07/04/15 documented as of this encounter
--- OUTSIDE RECORDS SUMMARY | 2025-03-20 16:50 | XMS_ITS | Encounter Summary ---
Author Organization [employer] Address [address] [place] [address] [place] [address] Care Team Providers Care Spaghetti Machine Operator Name Role Phone Name, Rock DE PAZ Primary Care Provider [phone] Reason for Visit * Reason Onset Date Comments Med Refill 02/09/2024 Encounter Details Date Type Department Care Team (Late st Contact Info) Description 02/09/2024 Refill [facility] [address] [place], [place] [phone] Name, MD Rock [address] [place] [address] Chronic pain syndrome; Insomnia, unspecified type Social [...] Description 05/28/2025 3:30 PM EST Office Visit [facility] [address] [place] [phone] NameRokc MD [address] [place] [phone] documented as of this encounter Visit Diagnoses Diagnosis Chronic pain syndrome Insomnia, unspecified type documented in this encounter Additional Health Concerns Assessment Noted Time PHQ-9 Depression Total Score: 12 024 2:16 PM EDT documented as of this encounter Care Teams Spaghetti Machine Operator Relationship Specialty Start Date End Date Name, MD Rock [address] [place] [phone] PCP - General Family Medicine 07/04/15 documented as of this encounter
--- OUTSIDE RECORDS SUMMARY | 2025-03-20 16:50 | XMS_ITS | Clinical Summary ---
Author Organization [employer] Address [address] [place] [address] 7[address] [place] [address] Care Team Providers Care Sheriff'S Sergeant Name Role Phone Name, Rock DE PAZ Primary Care Provider [phone] Allergies Active Allergy Reactions Criticality Noted Date [...] AREA TWICE DAILY 100 g 024 Active albuterol 108 (90 Base) MCG/ACT [...] REPLACE CAP. 16 g 2 025 Active traMADol (Ultram) 50 MG tabletIndicati ons:Chronic pain syndrome TAKE 1 TABLET BY MOUTH EVERY 8 HOURS NEEDED FOR SEVERE PAIN 84 tablet 025 Active EQ All Day Allergy Relief 10 MG tabletIndicati ons:Rhinorrhea TAKE 1 TABLET BY MOUTH ONCE DAILY IN THE MORNING 90 tablet 1 025 Active ezetimibe (Zetia) 10 MG tabletIndicati ons:High cholesterol,St atin intolerance TAKE 1 TABLET BY MOUTH EVERY DAY 90 tablet 1 025 Active carisoprodol (Soma) 350 MG tabletIndicati ons:Chronic pain syndrome TAKE 1 TABLET BY MOUTH IN THE MORNING, AT NOON, IN THE EVENING AND AT BEDTIME FOR MUSCLE SPASM FOR UP TO 23 DAYS 90 tablet 025 Active zolpidem (Ambien) 10 MG tabletIndicati ons:Insomnia, unspecified type TAKE 1 TABLET BY MOUTH ONCE DAILY AT BEDTIME NEEDED FOR SLEEP 28 tablet Active omeprazole (PriLOSEC) [address] capsuleIndicat ions:Insomnia, unspecified type,Chronic pain syndrome TAKE 1 CAPSULE BY MOUTH TWICE DAILY BEFORE MEAL(S) 180 capsule Active omeprazole (PriLOSEC) [address] capsuleIndicat ions:Chronic pain syndrome,Insom shital, unspecified type TAKE 1 CAPSULE BY MOUTH TWICE DAILY BEFORE MEAL(S) 180 capsule 1 024 2024 Discontinued ezetimibe (Zetia) 10 MG tabletIndicati ons:High cholesterol,St atin intolerance TAKE 1 TABLET BY MOUTH EVERY DAY 90 tablet 1 025 2024 Discontinued(R eorder (will not trigger notification to Pharmacy)) loratadine (Claritin) 10 MG tabletIndicati ons:Rhinorrhea TAKE 1 TABLET BY MOUTH EVERY MORNING 90 tablet 1 025 2024 Discontinued traMADol (Ultram) 50 MG tabletIndicati ons:Chronic pain syndrome Take 1 tablet (50 mg) by mouth every 8 (eight) hours if needed for severe pain for up to 28 days. 84 tablet 2024 Discontinued zolpidem (Ambien) 10 MG tabletIndicati ons:Insomnia, unspecified type TAKE 1 TABLET BY MOUTH ONCE DAILY AT BEDTIME NEEDED FOR SLEEP 28 tablet 2024 Discontinued carisoprodol (Soma) 350 MG tabletIndicati ons:Chronic pain syndrome TAKE 1 TABLET BY MOUTH ONCE DAILY IN THE MORNING,AT NOON, IN THE EVENING AND AT BEDTIME FOR MUSCLE SPASM FOR UP TO 23 DAYS 90 tablet 025 2024 Discontinued zolpidem (Ambien) 10 MG tabletIndicati ons:Insomnia, unspecified type TAKE 1 TABLET BY MOUTH ONCE DAILY AT BEDTIME NEEDED FOR SLEEP 28 tablet 2024 Discontinued Active Problems Problem Noted Date [...] Encounters Date Type Department Care Team Description 03/19/2025 Refill [facility] [address] [place] [address] Rock Rodrigues MD Insomnia, unspecified type; Chronic pain syndrome 03/19/2025 Refill [facility] [address] [place] [address] Rock Rodrigues MD Insomnia, unspecified type 03/16/2025 Telephone [facility] [address] [place] [address] Magdalena Pena MA dec recalls 03/08/2025 Refill [facility] [address] [place] [address] Rock Rodrigues MD Chronic pain syndrome 03/06/2025 Refill [facility] [address] [place] [address] Rock Rodrigues MD High cholesterol; Statin intolerance 03/06/2025 Refill [facility] 230 [place] [address] NameRock MD Chronic pain syndrome 03/04/2025 Refill [facility] [address] [place] [address] NameRock MD Rhinorrhea 02/20/2025 Refill [facility] [address] [place] [address] NameRock MD Chronic pain syndrome; Insomnia, unspecified type 02/20/2025 Refill [facility] [address] [place] [address] NameRock MD Insomnia, unspecified type 02/12/2025 Refill [facility] [address] [place] [address] NameRcok MD Hypophosphatemia; Rhinorrhea; Chronic pain syndrome 02/07/2025 Orders Only [facility] [address] [place] [address] NameRock MD 02/01/2025 Telephone [facility] [address] [place] [address] NameRock MD Nutrition Appointment 01/23/2025 Refill [facility] [address] [place] [address] Rock Rodrigues MD 01/23/2025 Refill [facility] [address] Rock Rodrigues MD Insomnia, unspecified type 01/17/2025 Refill [facility] [address] [place] [address] Rock Rodrigues MD Chronic pain syndrome 01/17/2025 Refill [facility] [address] [facility] [place] [address] Rock Rodrigues MD Rhinorrhea; Chronic pain syndrome 01/04/2025 Results Follow-Up [facility] [address] [place] [address] Rock Rodrigues MD CBC auto differential, Comprehensive Metabolic Panel, PTH, Intact Without Calcium, Additional followed-up results: 5 2025 2:30 PM EDT Office Visit [facility] [address] [place] [address] Rock Rodrigues MD Hypertension, unspecified type (Primary Dx); Class 1 drug-induced obesity with serious comorbidity and body mass index (BMI) of 30.0 to 30.9 in adult; Primary osteoarthritis of both knees; History of repair of hiatal hernia 2025 Travel 2025 Orders Only [facility] [address] [place] [address] Rock Rodrigues MD 12/29/2024 Refill [facility] [address] [place] [address] Rock Rodrigues MD Insomnia, unspecified type; Chronic pain syndrome; Hypophosphatemia 12/29/2024 Telephone [facility] [address] [place] [address] Rock Rodrigues MD Chart Prep 12/25/2024 Travel 12/18/2024 Refill [facility] [address] [place], [place] [phone] Shavon Fletcher MD Insomnia, unspecified type from Last 3 Months Immunizations Immunization Administration Dates Next Due INFLUENZA VACCINE QUADRIVALE NT RECOMBINANT PRESERVATIVE FREE RIV4 01/20/2020,02/09/2019 Influenza injectable quadriv alent preservative free 02/15/2023,01/07/2022,02/17/2021,01/15,01/28/2017,01/22/2016 Influenza, IIV3, injectable 01/07/2015,1 ,02/16/2013,01/10,01/24/2009 Influenza, Recombinant, inje ctable, preservative free 02/01/2024 Novel [id number], preservative-free 04/03/2009 Pfizer Covid-19 Vaccine 12+ 03/29/2023 [...] Description 05/28/2025 3:30 PM EST Office Visit [facility] [address] [place] [address] Name, MD Rock [address] [place] [address] Health Maintenance Due Date Last Done Comments CT Colonography 1960 FIT DNA/Cologuard 1960 FIT 1960 FOBT 1960 Sigmoidoscopy 1960 Hepatitis A Vaccines (1 of 2 - Risk 2-dose series) 01/02/1980 DTaP/Tdap/Td Vaccines (2 - Td or Tdap) 10/02/2018 09/25/2015, 10/02/2008 Depression Monitoring 11/14/2024 05/17/2024, 025 SDOH Screening 05/17/2025 05/17/2024 Disability Screening 09/06/2025 09/06/2024 Alcohol/Substance Use Screening 2026 2025 Tobacco Screening 2026 2025 Cervical Cancer Screening 01/07/2027 HPV/Cotest 01/07/2027 01/07/2022 Pap Smear 01/07/2027 01/07/2022 Mammogram 02/07/2027 02/07/2025, 01/24, 01/20/2022, Additional history exists Lipid Panel 12/06/2028 12/07/2023, 06/0 08/2023, 06/29/2022, Additional history exists Colonoscopy 11/21/2033 11/22/2023, 08/21/2014 Colorectal Cancer Screening 11/21/2033 Zoster Vaccines Completed 05/23/2019, 02/09/2019 HIV Screening Completed 02/17/2021 Hepatitis C Screening Completed 12/23/2021, 021 Pneumococcal Vaccine: 50+ Years Completed 02/15/2023, 08/15/2013 RSV Patients and Patients Aged 60 years or older Completed 03/30/2023, 03/30/2023 COVID-19 Vaccine Completed 03/04/2025, 11/2023, 03/29/2023, Additional history exists Influenza Vaccine Completed 03/04/2025, , 02/15/2023, Additional history exists HIB Vaccines Aged Out [...] (NTX), U Routine 2025 10:15 AM EDT LIPID PANEL, STANDARD Routine 12/07/2023 11:55 [...] PM EDT Narrative 02/11/2025 7:40 AM EDT [facility]'s [address] [place] [address] Mammography Report Signed Patient: Coleen Tyler MR#: [id number] : 1960 Acct:[id number] Age/Sex: 65 / F ADM Date: 02/07/25 Loc: HO.MAMMO Attending Dr: Rock Rodrigues MD Ordering Physician: Rock Rodrigues MD Results: 1Negative Date of Service: 02/07/25 Follow Up: 1 Year From [facility] Mammogram Procedure(s): MM tomosynthesis screening BI Accession Number(s): [id number] cc: Rock Rodrigues MD Reason For Exam: [...] 02/11/25 0738 DD/ 1402 TD/TT: 02/07/25 1414 Molder: Procedure Note Donotuseinterpreter, Image - 02/11/2025 [facility] [address] [place] [address] Mammography Report Signed Patient: JaysonDianaMR#: [id number] : 1960cct:[id number] Age/Sex: 65 / FADM Date: 02/07/25 Loc: HO.MAMMO Attending Dr: Rock Rodrigues MD Ordering Physician: Rock Rodrigues MDResults: 1Negative Date of Service: 02/07/25Follow Up: 1 Year From [facility] Mammogram Procedure(s): MM tomosynthesis screening BI Accession Number(s): [id number] cc: Rock Rodrigues MD Reason For Exam: [...] 02/11/25 0738 DD/ 1402 TD/TT: 02/07/25 1414 Molder: us Rock Rdorigues MD IMG BI PROCEDURES Edited Result - Final * Referral to Orthopaedic Surgery (01/25/2025) us Rock Rodrigues MD OUTPATIENT REFERRAL ORDERABLES F inal Result * FL Upper GI w/air w/Barium Swallow (01/15/2025 7:59 AM EDT) Anatomical Region Laterality Modality Body Radiographic Fe ging 01/15/2025 7:59 AM EDT Narrative 01/15/2025 8:50 AM EDT [place] [address] Fluoroscopy Report Signed Patient: Coleen Tyler MR#: [id number] : 1960 Acct:[id number] Age/Sex: 65 / F ADM Date: 01/15/25 Loc: HO.XRAY Attending Dr: Lisa Salas FUNDRAISING DIRECTOR- Ordering Physician: Lisa Salas FUNDRAISING DIRECTOR-MCKAYLA Date of Service: 01/15/25 Procedure(s): FL upper GI w air w Ba Swallow Accession Number(s): [id number] cc: Rock Rodrigues MD; Lisa Salas FUNDRAISING DIRECTOR-MCKAYLA Reason for Exam: K21.9 - Gastro-esophageal reflux [...] 01/15/25 0847 DD/ 0759 TD/TT: 01/15/25 0827 Molder: [facility] [place] [place] Procedure Note Donotuseinterpreter, Image - 01/15/[address] [address] Fluoroscopy Report Signed Patient: Ne TylernaMR#: [id number] : 1960cct:[id number] Age/Sex: 65 / FADM Date: 01/15/25 Loc: HO.XRAY Attending Dr: Lisa SAAVEDRA-MCKAYLA Ordering Physician: Lisa Salas Date of Service: 01/15/25 Procedure(s): FL upper GI w air w Ba Swallow Accession Number(s): [id number] cc: Name,Rock DE PAZ; Lisa Salas [facility] Reason for Exam: K21.9 - Gastro-esophageal reflux [...] OV> 01/15/25 0847 DD/ 0759 TD/TT: 01/15/25 0801 Molder: [facility] Exter nal Provider IMG FLUOROSCOPY PROCEDURES Edited Result - Final * Vitamin B1 (01/11/2025 12:57 PM EDT) Pathologist [facility] Vitamin B1 16 8 - 30 nmol/L [facility] Comment:Vitamin supplementat ion within 24 hours prior toblood draw may affect the accuracy of the results.This test was developed and its analytical performancecharacteristics have been determined by [employer] [place], [place]. It hasnot been cleared or approved by the U.S. Food and DrugAdministration. This assay has been validated pursuantto the CLIA regulations and is used for clinicalpurposes.THIS TEST WAS PERFORMED AT:[employer]/[facility] [place] [address]GIMXWPTCARMELITA WRIGHT MD,PHD Blood Venous blood specimen / Unknown 01/11/2025 12:57 PM EDT 01/11/2025 12:57 PM EDT us Rock Rodrigues MD LAB BLOOD ORDERABLES Final Resul t Performing Organization Address City/[facility]/ZIP Co de Phone Number [facility] [address] [place] [address] [phone] * Hold Lavender - Possible Hematology (2025 12:39 PM EDT) [facility] Hold Lavender - Possible Hematololgy SEE NOTE [facility] Comment:Specimen will be hel d untested for 8 hours. Call Hematologyif testing is desired. 2025 12:3 9 PM EDT 2025 2:09 PM EDT us Rock Rodrigues MD HISTORICAL/NON ORDERABLE LABS Fi nal Result Performing Organization Address City/[facility]/ZIP Co de Phone Number [facility] [address] [place] [phone] * Vitamin D, 25-Hydroxy, Total, Immunoassay (2025 12:39 PM EDT) [facility] Vitamin D 25-OH Total 45.0 >30 ng/mL [facility] Comment: Health Based Reference Values*< 20 ng/mL Yuakaesmy04-17 ng/mL Insufficient> 30 ng/mL Sufficient*Elver KRUSE. N [...] MD LAB BLOOD ORDERABLES Final Resul t [facility] [address] [place] [phone] * Vitamin B12/Folate, Serum Panel (2025 [...] 2025 12:39 PM EDT us Rock Name MD LAB BLOOD ORDERABLES Final Resul t [facility] [address] [place] [address] [phone] * (ABNORMAL) CBC auto differential (2025 [...] ORDERABLES Final Resul t Performing Organization Address City/[facility]/ZIP Co de Phone Number [facility] [address] [place] [phone] * (ABNORMAL) Iron And Total Iron [...] ORDERABLES Final Resul t Performing Organization Address City/[facility]/ZIP Co de Phone Number [facility] [address] [place] [phone] * Hepatitis A Antibody, Total (2025 12:39 PM EDT) Hepatitis A Antibody IgG Nonreactive Nonreactive [facility] Blood Venous blood specimen / Unknown 2025 12:39 PM EDT 2025 12:39 PM EDT Rock Rodrigues MD LAB BLOOD ORDERABLES Final Resul t Performing Organization Address [facility] de Phone Number [facility] [address] [place] [phone] * Zinc (2025 12:39 PM EDT) Zinc 69 60 - 130 mcg/dL [facility] Comment:This test was develo ped and its analytical performancecharacteristics have been determined by [employer] [place], [place]. It hasnot been cleared or approved by the U.S. Food and DrugAdministration. This assay has been validated pursuantto the CLIA regulations and is used for clinicalpurposes.THIS TEST WAS PERFORMED AT:[employer]/[facility] [place] [address]XJJYGDVCARMELITA WRIGHT MD,PHD Blood Venous blood specimen / Unknown 2025 12:39 PM EDT 2025 12:39 PM EDT us Rock Rodrigues MD LAB BLOOD ORDERABLES Final Resul t Performing Organization Address [facility] Co de Phone Number [facility] [address] [place] [phone] * TSH (2025 12:39 PM EDT) Thyroid Stimulating Hormone 1.72 0.32 - 4.0 uIU/mL [facility] Comment:TSH 3rd Generation ( [facility]) 2025 12:3 9 PM EDT 2025 12:39 PM EDT Generic External Data Provider LAB BLOOD ORDERAB LES Final Result Performing Organization Address [facility] Co de Phone Number [facility] [address] [place] [phone] * T4, Free (2025 12:39 PM EDT) Free T4 (Free Thyroxine) 1.05 0.71 - 1.85 ng/dL [facility] 2025 12:3 9 PM EDT 2025 12:39 PM EDT Generic External Data Provider LAB BLOOD ORDERAB LES Final Result Performing Organization Address [facility] Co az Phone Number [facility] [address] [place] [phone] * PTH, Intact Without Calcium (2025 12:39 PM EDT) Parathyroid Hormone, Intact 58.8 8.7 - 77.1 pg/mL [facility] Blood Venous blood specimen / Unknown 2025 12:39 PM EDT 2025 12:39 PM EDT Rock Rodrigues MD LAB BLOOD ORDERABLES Final Resul t Performing Organization Address [facility] Co de Phone Number [facility] [address] [place] [phone] * Ferritin (2025 12:39 PM EDT) Ferritin 17 10 - 250 ng/mL [facility] Blood Venous blood specimen / Unknown 2025 12:39 PM EDT 2025 12:39 PM EDT Rock Rodrigues MD LAB BLOOD ORDERABLES Final Resul t Performing Organization Address [facility] Co de Phone Number [facility] [address] [place] [phone] * Comprehensive Metabolic Panel (2025 12:39 PM EDT) Pathologist [facility] Sodium 142 135 - 145 mmol/L [facility] [...] Kidney Disea se: Estimated GFR < 60 mL/min/1.94o7Podjfw Kidney Disease: Estimated GFR < 15 mL/min/1.73m2 [...] MD LAB BLOOD ORDERABLES Final Resul t [facility] [address] [place] [phone] * Collagen Cross-Linked N-Telopeptide (NTx), U (2025 10:15 AM EDT) N Telopetide (NTx) 10 see note H [facility] Comment:Result Units: nM BCE /mM creatPremenopausal Females: 4 - 64 nM BCE/mM creatResults are primarily used for monitoring theresponse to therapy. A value within thepremenopausal range does not rule out osteoporosisnor the need for therapyUnits of Measure: nM BCE/mM creat CREATININE, RANDOM URINE 46 20 - 275 mg/dL [facility] Comment:THIS TEST WAS PERFOR MED AT:[employer] [id number] [place] [address]EIRCSIOCARMELITA WRIGHT MD,PHD 2025 10:1 5 AM EDT 2025 12:45 PM EDT us Generic External Data Provider LAB URINE ORDERAB LES Final Result [facility] [address] [place] [phone] * (ABNORMAL) Lipid Panel, Standard (12/07/2023 11:55 AM EDT) Pathologist [facility] Triglycerides 236(H) <150 mg/dL [facility] Comment:Desirable Triglyceri de: less than [...] mg/dL HDL Cholesterol 39(L) >40 mg/dL [facility] Comment:Desirable HDL: great er than 40 mg/dL Note: This HDL assay may give artificially low results in patients with liver disease. 12/07/2023 11:5 5 AM EDT 12/07/2023 11:55 AM EDT us Generic External Data Provider LAB BLOOD ORDERAB LES Final Result [facility] [address] [place] [phone] * Colonoscopy (11/22/2023) Colonoscopy Normal Normal [...] has been evaluated with computer assisted technology. [facility] Bulk Fluids Handler: SEE COMMENT [facility] Comment: VICTOR MANUEL SPAULDING(ASCP) CT screening location: [place] [address] HPV nRNA E6/E7 Not Detected Not Detected [facility] Comment: Methodology: Video Poker Floorman-Mediated Amplification This assay detects E6/E7 viral messenger RNA (mRNA) from 14 high-risk HPV types (16,18,31,33,35,39,45,51,52,56,58,59,66,68). Cervical sources are required for HPV testing. If a vaginal source from a patient who has had a total hysterectomy with removal of cervix was submitted, please contact the testing laboratory for alternative testing options. For additional information, please refer to http://education.Spotted/faq/QRB587c1 (This link if provided for information/ educational [...] SYSTEM Statement Of Adequacy: SATISFACTORY FOR EVALUATION [facility] 01/07/2022 3:18 PM EDT Tisha Venegas CN LAB PATHOLOGY ORDERABLES Final Result Performing Organization Address [facility] Co de Phone Number [facility] [address] * HEPATITIS C AB W/REFL TO HCV RNA, QN, PCR (12/23/2021 2:35 PM EDT) HEPATITIS C ANTIBODY NON-REACT MARK NON-REACT MARK [facility] INDEX 0.12 <1.00 [facility] Comment: HCV antibody was non-reactive. There is no laboratory evidence of HCV infection. In most cases, no further action is required. However, if recent HCV exposure is suspected, a test for HCV RNA (test code 52716) is suggested. For additional information please refer to http://education.Spotted/faq/KFA38s1 (This link is being provided for informational/ educational purposes only.) 12/23/2021 2:35 PM EDT Rock Rodrigues MD HISTORICAL/NON ORDERABLE LABS Fi nal Result Performing Organization Address [facility] Co de Phone Number [facility] [address] * HIV 1/2 ANTIGEN/ANTIBODY,FOURTH GENERATION W/RFL [...] purpose. For additional information please refer to http://education.Spotted/faq/PVP186 (This link is being provided for informational/ educational purposes only.) The performance of this assay has not been clinically validated in patients less than 2 years old. 02/17/2021 3:50 PM EDT us Rock Rodrigues MD LAB BLOOD ORDERABLES Final Resul t Performing Organization Address City/State/ZIP Co az Phone Number [facility] [address] from Last 3 Months or Most Recently Relevant to Health Maintenance Insurance MEDICARE [facility] STANDARD [employer] MEDICARE REPLACEMENT Care Teams Sheriff'S Sergeant Relationship Specialty Start Date End Date Name, MD Rock [address] [place] [phone] PCP - General Family Medicine 07/04/15
--- OUTSIDE RECORDS SUMMARY | 2025-03-20 16:50 | XMS_ITS | Encounter Summary ---
Author Organization [employer] Address [address] [place] [address] [address], [place] [address] Care Team Providers Care Power System Operator Name Role Phone Name, Rock DE PAZ Primary Care Provider [phone] Reason for Visit * Reason Comments Med Refill Encounter Details Date Type Department Care Team (Late st Contact Info) Description 11/26/2022 Refill [facility] [address] [place] [address] [phone] Name, MD Rock [address] [place] [address] Chronic pain syndrome Social History Tobacco Use [...] Description 05/28/2025 3:30 PM EST Office Visit [facility] [address] [facility] [place] [address] Name, MD Rock Jerald [facility] [place] [address] documented as of this encounter Visit Diagnoses Diagnosis Chronic pain syndrome documented in this encounter Additional Health Concerns Assessment Noted Time PHQ-9 Depression Total Score: 21 023 10:14 AM EDT documented as of this encounter Care Teams Power System Operator Relationship Specialty Start Date End Date Name, MD Rock Jerald [facility] [place] [address] PCP - General Family Medicine 07/04/15 documented as of this encounter
--- OUTSIDE RECORDS SUMMARY | 2025-03-20 16:50 | XMS_ITS | Encounter Summary ---
Author Organization [employer] Address [address] [place] [address] [address] [place] [address] Care Team Providers Care Photographer Apprentice Name Role Phone Name, Rock DE PAZ Primary Care Provider [phone] Reason for Visit * Reason Comments Med Refill Encounter Details Date Type Department Care Team (Late st Contact Info) Description 11/20/2022 Refill [facility] [address] [place], [place] [phone] Fany Pearson MD [address] [place] [address] Chronic pain syndrome; Insomnia, unspecified type Social [...] EST Office Visit [facility] [address] [facility] [place] [address] Name, MD Rock [address] [place] [address] documented as of this encounter Visit Diagnoses Diagnosis Chronic pain syndrome Insomnia, unspecified type documented in this encounter Additional Health Concerns Assessment Noted Time PHQ-9 Depression Total Score: 21 023 10:14 AM EDT documented as of this encounter Care Teams Photographer Apprentice Relationship Specialty Start Date End Date Name, MD Rock Jerald [facility] [place] [address] PCP - General Family Medicine 07/04/15 documented as of this encounter
--- OUTSIDE RECORDS SUMMARY | 2025-03-20 16:50 | XMS_ITS | Encounter Summary ---
Author Organization [employer] Address [address] [place] [address] 7 [place] [address] Care Team Providers Care Duplicating Machine Mechanic Name Role Phone Name, Rock DE PAZ Primary Care Provider [phone] Reason for Visit * Reason Comments Med Refill Encounter Details Date Type Department Care Team (Late st Contact Info) Description 11/18/2022 Refill [facility] MEDICINE [address] [place] [address] [phone] Name, MD Rock [address] [place] [address] Chronic pain syndrome Social History Tobacco Use [...] Description 05/28/2025 3:30 PM EST Office Visit [facility] MEDICINE 230 [place] [address] Name, MD Rock [address] [place] [address] documented as of this encounter Visit Diagnoses Diagnosis Chronic pain syndrome documented in this encounter Care Teams Duplicating Machine Mechanic Relationship Specialty Start Date End Date Name, MD Rock [address] [place] [address] PCP - General Family Medicine 07/04/15 documented as of this encounter
--- OUTSIDE RECORDS SUMMARY | 2025-03-20 16:50 | XMS_ITS | Encounter Summary ---
Author Organization [employer] Address [address] [place] [address] [place] [address] Care Team Providers Care Bridge Painter Name Role Phone Name, Rock DE PAZ Primary Care Provider [phone] Reason for Visit * Reason Onset Date Comments Med Refill 03/02/2024 Encounter Details Date Type Department Care Team (Late st Contact Info) Description 03/02/2024 Refill [facility] MED[facility]INE [address] [place], [place] [phone] Name, MD Rock [address] [place] [address] Chronic pain syndrome Social History Tobacco Use [...] [facility] [address] [place] [phone] Name, MD Rock [address] [place] [address] documented as of this encounter Visit Diagnoses Diagnosis Chronic pain syndrome documented in this encounter Additional Health Concerns Assessment Noted Time PHQ-9 Depression Total Score: 12 024 2:16 PM EDT documented as of this encounter Care Teams Bridge Painter Relationship Specialty Start Date End Date NameRock MD [address] [place] [phone] PCP - General Family Medicine 07/04/15 documented as of this encounter
--- OUTSIDE RECORDS SUMMARY | 2025-03-20 16:50 | XMS_ITS | Encounter Summary ---
Author Organization [employer] Address [address] [place] [address] [place] [address] Care Team Providers Care Supervisor Sintering Plant Name Role Phone Name, Rock DE PAZ Primary Care Provider [phone] Reason for Visit * Reason Onset Date Comments Med Refill 05/08/2024 Encounter Details Date Type Department Care Team (Late st Contact Info) Description 05/08/2024 Refill [facility] [address] [place] [address] Name, MD Rock [address] [place] [address] Rhinorrhea Social History Tobacco Use Types Packs/Day [...] Visit [facility] MEDICINE [address] [place] [phone] Name, MD Rock [address] [place] [address] documented as of this encounter Visit Diagnoses Diagnosis Rhinorrhea Other diseases of nasal cavity and sinuses documented in this encounter Additional Health Concerns Assessment Noted Time PHQ-9 Depression Total Score: 12 024 2:16 PM EDT documented as of this encounter Care Teams Supervisor Sintering Plant Relationship Specialty Start Date End Date Name, MD Rock [address] [place] [phone] PCP - General Family Medicine 07/04/15 documented as of this encounter
--- OUTSIDE RECORDS SUMMARY | 2025-03-20 16:50 | XMS_ITS | Encounter Summary ---
Author Organization [employer] Address [address] [place] [address] [place] [address] Care Team Providers Care Shoe Shanker Name Role Phone Name, Rock DE PAZ Primary Care Provider [phone] Reason for Visit * Reason Onset Date Comments Med Refill 02/09/2024 Encounter Details Date Type Department Care Team (Late st Contact Info) Description 02/09/2024 Refill [facility] MEDICINE 230 [place], [place] [phone] Name, MD Rock [address] [place] [address] Insomnia, unspecified type Social History Tobacco Use [...] Description 05/28/2025 3:30 PM EST Office Visit [facility] MEDICINE [address] [place] [address] Name, MD Rock [address] [place] [address] documented as of this encounter Visit Diagnoses Diagnosis Insomnia, unspecified type documented in this encounter Additional Health Concerns Assessment Noted Time PHQ-9 Depression Total Score: 12 024 2:16 PM EDT documented as of this encounter Care Teams Shoe Shanker Relationship Specialty Start Date End Date NameRock MD [address] [place] [address] PCP - General Family Medicine 07/04/15 documented as of this encounter
--- OUTSIDE RECORDS SUMMARY | 2025-03-20 16:50 | XMS_ITS | Encounter Summary ---
Author Organization [employer] Address [address] [place] [address] [place] [address] Care Team Providers Care Airplane Fueler Name Role Phone Name, Rock DE PAZ Primary Care Provider [phone] Reason for Visit * Reason Onset Date Comments Med Refill 02/09/2024 Encounter Details Date Type Department Care Team (Late st Contact Info) Description 02/09/2024 Refill [facility] MEDICINE 230 [place], [place] [phone] Name, MD Rock [address] [place] [address] Chronic pain syndrome Social History Tobacco Use [...] PM EST Office Visit [facility] MEDICINE [address] [place] [phone] Name, MD Rock [address] [place] [address] documented as of this encounter Visit Diagnoses Diagnosis Chronic pain syndrome documented in this encounter Additional Health Concerns Assessment Noted Time PHQ-9 Depression Total Score: 12 024 2:16 PM EDT documented as of this encounter Care Teams Airplane Fueler Relationship Specialty Start Date End Date NameRock MD [address] [place] [phone] PCP - General Family Medicine 07/04/15 documented as of this encounter
--- OUTSIDE RECORDS SUMMARY | 2025-03-20 16:50 | XMS_ITS | Encounter Summary ---
Author Organization [employer] Address [address] [place] [address] [place] [address] Care Team Providers Care Central Sterile Supply Technician Name Role Phone Name, Rock DE PAZ Primary Care Provider [phone] Reason for Visit * Reason Onset Date Comments Med Refill 03/03/2024 Encounter Details Date Type Department Care Team (Late st Contact Info) Description 03/03/2024 Refill [facility] MEDICINE 230 [place], [place] [phone] Name, MD Rock [address] [place] [address] Chronic pain syndrome Social History Tobacco Use [...] Description 05/28/2025 3:30 PM EST Office Visit [facility] MEDICINE [address] [place] [phone] Name, MD Rock [address] [place] [address] documented as of this encounter Visit Diagnoses Diagnosis Chronic pain syndrome documented in this encounter Additional Health Concerns Assessment Noted Time PHQ-9 Depression Total Score: 12 024 2:16 PM EDT documented as of this encounter Care Teams Central Sterile Supply Technician Relationship Specialty Start Date End Date NameRock MD [address] [place] [phone] PCP - General Family Medicine 07/04/15 documented as of this encounter
--- OUTSIDE RECORDS SUMMARY | 2025-03-20 16:50 | XMS_ITS | Encounter Summary ---
Author Organization [employer] Address [address] [place] [address] [place] [address] Care Team Providers Care Underground Mine Machinery Mechanic Name Role Phone Name, Rock DE PAZ Primary Care Provider [phone] Reason for Visit * Reason Onset Date Comments Med Refill 05/08/2024 Encounter Details Date Type Department Care Team (Late st Contact Info) Description 05/08/2024 Refill [facility] MEDICINE 230 [place], [place] [phone] Name, MD Rock [address] [place] [address] Chronic pain syndrome; Insomnia, unspecified type Social [...] Visit [facility] MEDICINE [address] [place] [phone] NameRock MD [address] [place] [address] documented as of this encounter Visit Diagnoses Diagnosis Chronic pain syndrome Insomnia, unspecified type documented in this encounter Additional Health Concerns Assessment Noted Time PHQ-9 Depression Total Score: 12 024 2:16 PM EDT documented as of this encounter Care Teams Underground Mine Machinery Mechanic Relationship Specialty Start Date End Date Name, MD Rock [address] [place] [phone] PCP - General Family Medicine 07/04/15 documented as of this encounter
--- OUTSIDE RECORDS SUMMARY | 2025-03-20 16:50 | XMS_ITS | Encounter Summary ---
Author Organization [employer] Address [address] [place] [address] [place] [address] Care Team Providers Care Air Twister Winder Name Role Phone Name, Rock DE PAZ Primary Care Provider [phone] Reason for Visit * Reason Onset Date Comments Med Refill 03/02/2024 Encounter Details Date Type Department Care Team (Late st Contact Info) Description 03/02/2024 Refill [facility] MEDICINE 230 [place], [place] [phone] Name, MD Rock [address] [place] [address] Social History Tobacco Use Types Packs/Day Years [...] Office Visit [facility] MEDICINE [address] [place] [phone] Name, MD Rock [address] [place] [address] documented as of this encounter Visit Diagnoses Not on filedocumented in this encounter Additional Health Concerns Assessment Noted Time PHQ-9 Depression Total Score: 12 024 2:16 PM EDT documented as of this encounter Care Teams Air Twister Winder Relationship Specialty Start Date End Date NameRock MD [address] [place] [address] PCP - General Family Medicine 07/04/15 documented as of this encounter
--- OUTSIDE RECORDS SUMMARY | 2025-03-20 16:50 | XMS_ITS | Encounter Summary ---
Author Organization [employer] Address [address] [place] [address] Care Team Providers Care Seafood Harvester Name Role Phone Name, Rock DE PAZ Primary Care Provider [phone] Reason for Visit * Reason Onset Date Comments Med Refill 03/10/2024 Encounter Details Date Type Department Care Team (Late st Contact Info) Description 03/10/2024 Refill [facility] MEDICINE 230 [place], [place] [phone] Name, MD Rock [address] [place] [address] Insomnia, unspecified type Social History Tobacco Use [...] 05/28/2025 3:30 PM EST Office Visit [facility] MEDICINE [address] [place] [address] Name, MD Rock [address] [place] [address] documented as of this encounter Visit Diagnoses Diagnosis Insomnia, unspecified type documented in this encounter Additional Health Concerns Assessment Noted Time PHQ-9 Depression Total Score: 12 024 2:16 PM EDT documented as of this encounter Care Teams Seafood Harvester Relationship Specialty Start Date End Date NameRock MD [address] [place] [address] PCP - General Family Medicine 07/04/15 documented as of this encounter
--- OUTSIDE RECORDS SUMMARY | 2025-03-20 16:50 | XMS_ITS | Encounter Summary ---
Author Organization [employer] Address [address] [place] [address] Care Team Providers Care Metal Drill Operator Name Role Phone Name, Rock DE PAZ Primary Care Provider [phone] Reason for Visit * Reason Comments Med Refill Encounter Details Date Type Department Care Team (Late st Contact Info) Description 11/23/2022 Refill [facility] MEDICINE 230 [place], [place] [phone] Fany Pearson MD [address] [place] [address] Chronic pain syndrome; Insomnia, unspecified type Social [...] Description 05/28/2025 3:30 PM EST Office Visit [facility] MEDICINE [address] [place] [address] Name, MD Rock [address] [place] [address] documented as of this encounter Visit Diagnoses Diagnosis Chronic pain syndrome Insomnia, unspecified type documented in this encounter Additional Health Concerns Assessment Noted Time PHQ-9 Depression Total Score: 21 023 10:14 AM EDT documented as of this encounter Care Teams Metal Drill Operator Relationship Specialty Start Date End Date Name, MD Rock [address] [place] [address] PCP - General Family Medicine 07/04/15 documented as of this encounter
--- OUTSIDE RECORDS SUMMARY | 2025-03-20 16:50 | XMS_ITS | Encounter Summary ---
Author Organization [employer] Address [address] [place] [address] Care Team Providers Care Business Associate Name Role Phone Name, Rock DE PAZ Primary Care Provider [phone] Reason for Visit * Reason Onset Date Comments Med Refill 05/09/2024 Encounter Details Date Type Department Care Team (Late st Contact Info) Description 05/09/2024 Refill [facility] MEDICINE 230 [place], [place] [phone] Name, MD Rock [address] [place] [address] Rhinorrhea Social History Tobacco Use Types Packs/Day [...] Description 05/28/2025 3:30 PM EST Office Visit [facility] MEDICINE [address] [place] [phone] Name, MD Rock [address] [place] [address] documented as of this encounter Visit Diagnoses Diagnosis Rhinorrhea Other diseases of nasal cavity and sinuses documented in this encounter Additional Health Concerns Assessment Noted Time PHQ-9 Depression Total Score: 12 024 2:16 PM EDT documented as of this encounter Care Teams Business Associate Relationship Specialty Start Date End Date NameRock MD [address] [place] [address] PCP - General Family Medicine 07/04/15 documented as of this encounter
== END 2025-03-20 14:20 | disposition home or self-care (01) ==
LOC: HO.HGI 13:03
PROVIDERS: PCP Internal Medicine Geriatric Medicine; Visit Provider Nurse Practitioner Family
DX: K21.9 Gastro-esophageal reflux disease without esophagitis (principal); K76.0 Fatty (change of) liver, not elsewhere classified; K66.0 Peritoneal adhesions (postprocedural) (postinfection); Z98.890 Other specified postprocedural states
CPT/HCPCS: 99214; G2211

== ENCOUNTER → 2025-03-20 13:03 | Outpatient (BNVA) | payer MEDICARE, MEDICAID, SELFPAY | PROVIDERS: PCP Internal Medicine Geriatric Medicine; Visit Provider Nurse Practitioner Family | DX: K21.9 Gastro-esophageal reflux disease without esophagitis (principal); K76.0 Fatty (change of) liver, not elsewhere classified; K66.0 Peritoneal adhesions (postprocedural) (postinfection); Z98.890 Other specified postprocedural states; Z79.899 Other long term (current) drug therapy; R13.10 Dysphagia, unspecified | CPT/HCPCS: 99212 ==